=== PATIENT | male | born 1960 | race American Indian/Alaskan Native ===

== ENCOUNTER 2016-12-30 04:40 | Inpatient (IN) | payer OTHER ==
[2016-12-30] MEDS ORDERED: ATIVAN ONE (04:41)
[2016-12-30] MEDS: ATIVAN IV ONE ×2 (04:42→04:44)
[2016-12-30] MEDS ORDERED: KEPPRA 1,000 MG/NS 0.75% 100ML 1,000 MG/100 ML BAG IV ONE ×2 (04:50→05:15)
[2016-12-30] MEDS ORDERED: VALIUM IV ONE ×2 (08:52→14:36)
--- NOTE | 2016-12-30 08:54 | Emergency Department Report ---
ED General Adult HPI - General Chief complaint: Seizure Stated complaint: SEIZURE Time Seen by Provider: 12/30/16 08:44 Source: EMS (ems notes not available at time of chart dictation), RN notes reviewed, old records reviewed Mode of arrival: Stretcher Limitations: Altered Mental Status - History of Present Illness Initial comments: This is a 56-year-old male. He is previously unknown to me. May have a history of seizure disorder. Patient is brought to the hospital by EMS. History is limited as there is no family member present, EMS documentation is not available, and the patient is altered/postictal. As per triage nurse documentation, EMS found patient at a hotel with 3 witnessed seizures by bystanders. Patient arrived at the hospital postictal, and was unresponsive. EMS indicates that patient is not compliant with medications, is uncertain what medications the patient takes. Unable to elucidate exacerbating or relieving factors, qualitative nature secondary to the aforementioned limitations. -: unknown Quality: other (per hpi) Consistency: other (per hpi) Improves with: other (per hpi) Worsens with: other (per hpi) Associated Symptoms: other (per hpi) - Related Data Home Medications Medication Instructions Recorded Confirmed Last Taken Unobtainable 12/30/16 12/30/16 Unknown Allergies Allergy/AdvReac Type Severity Reaction Status Date / Time No Known Allergies Allergy Verified 12/30/16 04:48 ED Review of Systems ROS: Stated complaint: SEIZURE Other details as noted in HPI Comment: Unobtainable due to pts medical conditions ED Past Medical Hx - Past Medical History Previous Medical History?: Yes Hx Seizures: Yes - Surgical History Past Surgical History?: Yes - Social History Smoking Status: Never Smoker - Medications Home Medications: Home Medications Medication Instructions Recorded Confirmed Last Taken Type Unobtainable 12/30/16 12/30/16 Unknown History ED Physical Exam - General Limitations: Altered Mental Status General appearance: in no apparent distress, lethargic - Head Head exam: Present: atraumatic, normocephalic - Eye Eye exam: Present: normal appearance, PERRL - ENT ENT exam: Present: normal exam, mucous membranes moist - Neck Neck exam: Present: normal inspection. Absent: tenderness - Respiratory Respiratory exam: Present: normal lung sounds bilaterally. Absent: respiratory distress, wheezes, rales, rhonchi, stridor, prolonged expiratory - Cardiovascular Cardiovascular Exam: Present: regular rate, normal rhythm, normal heart sounds. Absent: bradycardia, tachycardia, irregular rhythm, systolic murmur, diastolic murmur, rubs, gallop - GI/Abdominal GI/Abdominal exam: Present: soft, normal bowel sounds. Absent: distended, tenderness, guarding, rebound, rigid, pulsatile mass - Rectal Rectal exam: Present: normal inspection, other (escorted by RN Althea Friedman) - exam: Present: normal inspection External exam: Present: normal external exam - Extremities Exam Extremities exam: Present: normal inspection, normal capillary refill. Absent: calf tenderness - Back Exam Back exam: Present: normal inspection. Absent: tenderness, CVA tenderness (R), CVA tenderness (L), muscle spasm, paraspinal tenderness, vertebral tenderness - Neurological Exam Neurological exam: Present: altered, other (patient is altered, curses occasionally, moves 4 extremities occasionally, no midline spinal tenderness.) - Psychiatric Psychiatric exam: Present: flat affect - Skin Skin exam: Present: warm, dry, intact, normal color. Absent: rash ED Course Vital Signs 12/30/16 05:02 Temperature 98.7 F Pulse Rate 105 H Respiratory 18 Rate Blood Pressure 158/95 O2 Sat by Pulse 100 Oximetry - Reevaluation(s) Reevaluation #1: 12/30/16 10:31 Differential diagnosis: Intracranial injury, cervical spine injury, renal insufficiency, toxic encephalopathy, metabolic, postictal state, incidental renal insufficiency. Assessment and plan: 56-year-old male who is probably postictal with altered mental status. He is found to be in renal insufficiency incidentally. History is limited secondary to corroborating family members, corroborating documentation. as of this time, he has received 1 gram keppra He will be given 1 L of IV fluids wide open for his renal insufficiency. A noncontrast CT scan of the brain and cervical spine are pending. X-ray of the chest/urinalysis does not suggest acute infectious etiology. 12/30/16 10:32 Reevaluation #2: 12/30/16 12:12 CT scan of the brain and cervical spine negative. Case is discussed with the Hospital physician, Dr. perez, accepts patient to his service. ED Medical Decision Making - Lab Data Result diagrams: 12/30/16 09:00 12/30/16 09:00 Vital Signs 12/30/16 05:02 Temperature 98.7 F Pulse Rate 105 H Respiratory 18 Rate Blood Pressure 158/95 O2 Sat by Pulse 100 Oximetry Lab Results 12/30/16 12/30/16 12/30/16 Range/Units 05:40 09:00 09:00 WBC 8.5 (4.5-11.0) K/mm3 RBC 3.67 (3.65-5.03) M/mm3 Hgb 11.9 (11.8-15.2) gm/dl Hct 35.7 (35.5-45.6) % MCV 97 H (84-94) fl MCH 33 H (28-32) pg MCHC 34 (32-34) % RDW 14.5 (13.2-15.2) % Plt Count 310 (140-440) K/mm3 Sodium (137-145) mmol/L Potassium (3.6-5.0) mmol/L Chloride (98-107) mmol/L Carbon Dioxide (22-30) mmol/L Anion Gap mmol/L BUN (9-20) mg/dL Creatinine (0.8-1.5) mg/dL Estimated GFR ml/min BUN/Creatinine Ratio % Glucose (75-100) mg/dL Calcium (8.4-10.2) mg/dL Magnesium (1.7-2.3) mg/dL Total Creatine Kinase (55-170) units/L Urine Color Straw (Yellow) Urine Turbidity Clear (Clear) Urine pH 6.0 (5.0-7.0) Ur Specific [place] 1.009 (1.003-1.030) Urine Protein 100 mg/dl (Negative) mg/dL Urine Glucose (UA) 50 (Negative) mg/dL Urine Ketones Neg (Negative) mg/dL Urine Blood Mod (Negative) Urine Nitrite Neg (Negative) Urine Bilirubin Neg (Negative) Urine Urobilinogen < 2.0 (<2.0) mg/dL Ur Leukocyte Esterase Neg (Negative) Urine WBC (Auto) 1.0 (0.0-6.0) /HPF Urine RBC (Auto) 4.0 (0.0-6.0) /HPF Urine Bacteria (Auto) 1+ (Negative) /HPF Phenytoin 1.3 L (10.0-20.0) mg/L 12/30/16 Range/Units 09:00 WBC (4.5-11.0) K/mm3 RBC (3.65-5.03) M/mm3 Hgb (11.8-15.2) gm/dl Hct (35.5-45.6) % MCV (84-94) fl MCH (28-32) pg MCHC (32-34) % RDW (13.2-15.2) % Plt Count (140-440) K/mm3 Sodium 142 (137-145) mmol/L Potassium 3.6 (3.6-5.0) mmol/L Chloride 108.9 H (98-107) mmol/L Carbon Dioxide 24 (22-30) mmol/L Anion Gap 13 mmol/L BUN 34 H (9-20) mg/dL Creatinine 2.6 H (0.8-1.5) mg/dL Estimated GFR 31 ml/min BUN/Creatinine Ratio 13.07 % Glucose 81 (75-100) mg/dL Calcium 8.7 (8.4-10.2) mg/dL Magnesium 2.5 H (1.7-2.3) mg/dL Total Creatine Kinase 369 H (55-170) units/L Urine Color (Yellow) Urine Turbidity (Clear) Urine pH (5.0-7.0) Ur Specific [place] (1.003-1.030) Urine Protein (Negative) mg/dL Urine Glucose (UA) (Negative) mg/dL Urine Ketones (Negative) mg/dL Urine Blood (Negative) Urine Nitrite (Negative) Urine Bilirubin (Negative) Urine Urobilinogen (<2.0) mg/dL Ur Leukocyte Esterase (Negative) Urine WBC (Auto) (0.0-6.0) /HPF Urine RBC (Auto) (0.0-6.0) /HPF Urine Bacteria (Auto) (Negative) /HPF Phenytoin (10.0-20.0) mg/L - EKG Data When compared to previous EKG there are: previous EKG unavailable 12/30/16 10:34 normal sinus, 72 bpm, normal axis, QTC 446 ms, numerous T-wave abnormalities, patient not having chest pain at this time, not consistent with STEMI. EKG morphologically normal. - Radiology Data Radiology results: pending, report reviewed, image reviewed X-ray of the chest demonstrates right lower lobe atelectasis, otherwise no acute disease. Critical care attestation.: If time is entered above; I have spent that time in minutes in the direct care of this critically ill patient, excluding procedure time. ED Disposition Clinical Impression: Renal failure, Altered mental status Disposition: OP ADMITTED IP TO THIS HOSP Is pt being admited?: Yes Condition: Good Referrals: PRIMARY CARE,MD [Primary Care Provider] - 3-5 Days
[2016-12-30 09:15] LABS: Hematocrit 35.7 % (35.5-45.6); Hemoglobin 11.9 gm/dl (11.8-15.2); Mean Corpuscular HGB Conc 34 % (32-34); Mean Corpuscular Hemoglobin 33 pg (28-32); Mean Corpuscular Volume 97 fl (84-94); Platelet Count 310 K/mm3 (140-440); Red Blood Count 3.67 M/mm3 (3.65-5.03); Red Cell Distribution Width 14.5 % (13.2-15.2); White Blood Count 8.5 K/mm3 (4.5-11.0)
--- NOTE | 2016-12-30 09:20 | XRay Report ---
Single view chest: History: AMS, PNA Findings: Cardiomegaly. Trachea is midline. Linear density right lower lobe suggestive of right basilar atelectasis or scarring. Normal CP angles. Impression: Right basilar scarring or discoid atelectasis.
[2016-12-30 09:24] LABS: Urine Drugs of Abuse Note Disclamer
[2016-12-30 09:31] LABS: BUN/Creatinine Ratio 13.07; Calcium 8.7 mg/dL (8.4-10.2); Chloride 108.9 mmol/L (98-107); Magnesium 2.5 mg/dL (1.7-2.3); Potassium 3.6 mmol/L (3.6-5.0)
[2016-12-30 09:42] LABS: Bacteria,Urine 1+ /HPF (Negative); Bilirubin,Urine NEG (Negative); Blood,Urine MOD (Negative); Ketones,Urine NEG (Negative); Leukocyte Esterase,Urine NEG (Negative); Nitrite,Urine NEG (Negative); Urobilinogen,Urine < 2.0 mg/dL (<2.0)
[2016-12-30] MEDS ORDERED: NACL 0.9% 1000 ML 1,000 ML IV ONE (10:28)
--- NOTE | 2016-12-30 10:53 | Admit Criteria Form ---
Admission Criteria Documentation: MENTAL STATUS CHANGE Clinical Indications for Inpatient Care (Place 'X' for any and all applicable criteria): Ongoing inpatient care may be needed for ANY ONE of the following(1)(2)(3)(5)(6) : [X]I. Suspected serious etiology (eg, medical disorder, COMPUTER ENGINEERING TECHNOLOGIST event) of mental status change [ ]II. Danger to self or others not manageable at lower level of care [ ]III. Grave disability (eg, inability to perform self care necessary at lower level of care) [ ]IV. Agitation or inappropriate behavior interfering with care for primary condition (eg, attempting to discontinue lines or drains prematurely, unable to cooperate with respiratory care) [ ]V. Delirium [A] [D][E] as described by ANY ONE of the following(26): [ ]a) Delirium due to alcohol or sedative [F] withdrawal [ ]b) Delirium of uncertain etiology that has not responded to appropriate empiric treatment [ ]c) Delirium that prevents performance of a life-sustaining function (eg, feeding or hydrating oneself) [ ]. General contraindications and/or Inappropriate clinical situations for Observational Care in patients with Mental Status Change, when ANY ONE of the following is required: [ ]a) Prediction of prolongation of LOS based on ANY ONE of the following may be considered as a contraindication for observational care 2, 3, 4, 5, 6, 7, 8, 9, 10, 11 [ ]i) Age > 65 yrs. [ ]ii) Patient arriving by ambulance [ ]iii) Patient with high acuity [ ]iv) Patient requiring vital sign monitoring [ ]v) Patient on IV medication [ ]b) Systolic blood pressures 180mmHg 3,12 [ ]c) Patient with altered mental status including delirium and other alteration of consciousness, (3) [ ]d) Patient whose discharge disposition will be to a long term home or rehabilitation home should not be managed in Emergency Department Observation Unit. CMS rule requires 3 days hospital stay before such placement.3,13 [ ]e) Patient with failure to thrive due to broad array of etiologies 3,16,17 [ ]f) Inability to ambulate 3,14 Extended stay beyond goal length of stay for the primary condition may be needed until ALL of the following are present(3)(5): [ ]a) Underlying medical etiology of mental status change is absent, or has been established and adequately treated [ ]b) Danger to self or others is absent or manageable at lower level of care. [ ]c) Behavior crisis management, including physical or chemical restraints, is not required or available at lower level of car [ ]d) Substance or alcohol withdrawal is absent or manageable at lower level of care. [ ]e) Behavioral symptoms (eg, agitation, somnolence, inappropriate behavior) are absent, or are manageable at lower level of care. The original [facility] content created by [employer] [employer] [facility] [employer] has been revised. The portions of the content which have been revised are identified through the use of italic text or in bold, and [facility] has neither reviewed nor approved the modified material. All other unmodified content is copyright [facility]. Please see references footnoted in the original [facility] edition 2016 Admission Criteria Met: Yes
--- NOTE | 2016-12-30 11:15 | Cat Scan Report ---
CT scan of head without contrast: History: AMS. Findings: Ventricles are normal in size and midline in location. Focal area of low attenuation in the left posterior parietal and frontal region. Periventricular area of low attenuation. No evidence of hemorrhage. No extra-axial fluid collection. Normal brainstem and cerebellum. Normal sinuses and mastoid air cells. Impression: Ill-defined areas of low attenuation left posterior frontal and left posterior parietal region probably represents chronic ischemia. No previous studies available for comparison.
--- NOTE | 2016-12-30 11:17 | Cat Scan Report ---
CT scan of cervical spine: History: AMS. Findings: The odontoid process and lateral mass appears normal. The anterior and posterior arch of atlas and the occipital condyles appears unremarkable. Normal height of vertebral bodies. Decrease in height of C5-C6, C6-C7. Sclerotic articular surfaces and peripheral osteophyte suggestive of severe cervical spondylosis. No fracture. Normal prevertebral soft tissue. Impression Severe spondylosis lower cervical spine.
[2016-12-30] MEDS ORDERED: BABY ASPIRIN ONE (15:55)
[2016-12-30] MEDS ORDERED: APRESOLINE IV ONE (15:56)
[2016-12-30] MEDS: BABY ASPIRIN PO SCH (16:04)
--- NOTE | 2016-12-30 21:53 | Event Note ---
Date: 12/30/16 See H/p in reports AMS Encephalopathy Seizure Disorder HTN CKD
[2016-12-30] MEDS ORDERED: COZAAR PO SCH (22:00)
[2016-12-30] MEDS ORDERED: NACL 0.9% 1000 ML 1,000 ML IV SCH (23:00)
[2016-12-30] MEDS ORDERED: KEPPRA 750 MG in D5W 100 ML IV SCH (23:00)
--- NOTE | 2016-12-30 23:34 | History and Physical Report ---
CHIEF COMPLAINT: 1. Seizures. 2. Postictal state. HISTORY OF PRESENT ILLNESS: A 56-year-old -[place] male with history of hypertension, seizure disorder, chronic kidney disease, noncompliant with medication, brought in for seizures. The patient was at a hotel with 3 witnessed seizures by bystanders. EMS was called and the patient did not have any seizures in the EMS. In the hospital, the patient was postictal and was totally unresponsive. The patient apparently is noncompliant with medications. No fever, no chills. CURRENT MEDICATIONS: None. PAST MEDICAL HISTORY: Significant for hypertension, seizure disorder, chronic kidney disease. SOCIAL HISTORY: Does not smoke. PAST SURGICAL HISTORY: Unknown. FAMILY HISTORY: Unknown. CURRENT MEDICATIONS: Unobtainable. REVIEW OF SYSTEMS: The patient is postictal. Could not be done. Attempted to do the 14-point review of systems done. No fever, no chills. PHYSICAL EXAMINATION: GENERAL: Middle-aged male, altered sensorium, lethargic, lying in bed. Well-developed, well-nourished. VITAL SIGNS: Temperature 98.7, pulse is 105, respirations are 18, blood pressure 158/95, sats are 100%. HEENT: Unremarkable. Pupils are equal and reactive. NECK: Supple, no lymphadenopathy, no thyromegaly, no carotid artery bruit. LUNGS: Clear to auscultation and percussion. Good air entry. CARDIOVASCULAR: S1, S2 heard. No gallop, no murmur, no rub. Apical impulse in the left fifth intercostal space and midclavicular line. ABDOMEN: Soft and benign. No hepatosplenomegaly. No guarding, no rigidity. Hernial orifices are normal. EXTREMITIES: Good pedal pulses. No pedal edema. CENTRAL NERVOUS SYSTEM: The patient is lethargic. Decreased responsiveness. Responds to painful stimuli. NEUROLOGIC: Moves all 4 extremities. SKIN: Normal. LABORATORY DATA: Electrolytes are normal. BUN and creatinine is 34 and 2.6, hemoglobin is 11.9, hematocrit 35.7. CBC is 8.5, platelet count is 310,000. Urine is negative. Phenytoin level is 1.3. CT of the head shows no acute changes. EKG shows no STEMI, nonspecific ST-T wave changes. ASSESSMENT AND PLAN: 1. Altered mental status secondary to seizure disorder. The patient is postictal. The patient is started on IV Keppra 750 q. 12. The patient to be switched to p.o. Keppra. 2. Encephalopathy secondary to seizure disorder and postictal state. IV fluids for the time being. 3. Seizure disorder, IV Keppra 750 q. 12. to be bridged over to p.o. Keppra and to be counseled about being compliant. 4. Hypertension, uncontrolled. The patient is started on losartan 100 mg daily and Coreg 12.5 q. 12 hours. I do not know at this point when the patient can afford losartan, but I would prefer losartan over lisinopril because of the frequent angioedema and mervin inhibitors reaction. 5. Chronic kidney disease, now stable. 6. Acute on chronic renal failure. We will attempt IV fluids and see whether there will be improvement in the BUN and creatinine. Nephrology consulted. Proof Load Mechanic electronic communications technician consulted. 7. Deep venous thrombosis prophylaxis. Lovenox 40 mg subcutaneous daily. JOB# [id number] SHIRA/PADDY
[2016-12-30] MEDS: COREG PO SCH (23:42)
[2016-12-30] MEDS: KEPPRA PO SCH (23:42)
--- NOTE | 2016-12-31 09:53 | Consultation ---
History of Present Illness - Reason for Consult Consult date: 12/31/16 acute renal failure - History of Present Illness patient is a poor historian, does not why and how he came to the hospital, per ED note it appears he has a seizure episode, no family at bedside, patient when seen in AM denies any pain or discomfort, denies h/o CKD. renal consult requested for renal failure management. Past History Past Medical History: hypertension Medications and Allergies Allergies Allergy/AdvReac Type Severity Reaction Status Date / Time No Known Allergies Allergy Verified 12/30/16 04:48 Home Medications Medication Instructions Recorded Confirmed Last Taken Type Unobtainable 12/30/16 12/30/16 Unknown History Active Meds: Active Medications Amlodipine Besylate (Norvasc) 10 mg PO QDAY [facility] Aspirin (Baby Aspirin) 81 mg PO QDAY [facility] Last Admin: 12/30/16 16:04 Dose: 81 mg Carvedilol (Coreg) 12.5 mg PO BID [facility] Last Admin: 12/30/16 23:42 Dose: 12.5 mg Carvedilol (Coreg) 25 mg PO BID [facility] Sodium Chloride (Nacl 0.9% 1000 Ml) 1,000 mls @ 100 mls/hr IV DIRECT WILL Levetiracetam (Keppra) 750 mg PO BID [facility] Last Admin: 12/30/16 23:42 Dose: 750 mg Review of Systems All systems: negative (weakness, confusion) Exam - Vital Signs Vital signs: Vital Signs Temp Pulse Resp BP Pulse Ox 98.7 F 105 H 18 158/95 100 12/30/16 05:02 12/30/16 05:02 12/30/16 05:02 12/30/16 05:02 12/30/16 05:02 - General Appearance General appearance: well-developed, well-nourished EENT: ATNC, PERRL, mucous membranes moist Neck: Present: neck supple Respiratory: Clear to Ascultation Heart: regular, S1S2 Gastrointestinal: Present: normoactive bowel sounds. Absent: tenderness, distended, masses Integumentary: no rash, warm and dry Neurologic: no focal deficit, no asterixis Musculoskeletal: Present: other (no edema in BLE) Psychiatric: mood/affect appropriate, cooperative Results - Lab Results 12/30/16 09:00 12/30/16 09:00 Most recent lab results Calcium 8.7 mg/dL (8.4-10.2) 12/30/16 09:00 Magnesium 2.5 mg/dL (1.7-2.3) H 12/30/16 09:00 Assessment and Plan - Patient Problems (1) Renal failure Current Visit: Yes Status: Acute Plan to address problem: no baseline Cr available, possible CKD due to poor BP control will hold losartan for now will check renal US will check UA with urine lytes and protein no indication for QUALITY CONTROL EXPERT renally dose meds strict I&O renal diet daily weight (2) Hypertension associated with stage 3 chronic kidney disease due to type 2 diabetes mellitus Current Visit: Yes Status: Acute Plan to address problem: will hold losartan for now will increase coreg to 25 mg BID and start Amlodipine 10 mg qday (3) Altered mental status Current Visit: Yes Status: Acute Qualifiers: Altered mental status type: disorientation Coma depth: C Coma timing: C Qualified Code(s): R41.0 - Disorientation, unspecified Plan to address problem: CT head negative for acute process but possible showing chronic ischemic changes unlikely due to uremia
[2016-12-31] MEDS: KEPPRA PO SCH ×2 (09:58→22:03)
[2016-12-31] MEDS: BABY ASPIRIN PO SCH (09:58)
[2016-12-31] MEDS: COREG PO SCH ×3 (09:58→22:03)
[2016-12-31 10:48] LABS: BUN/Creatinine Ratio 11.3; Calcium 8.5 mg/dL (8.4-10.2); Chloride 113.6 mmol/L (98-107); Potassium 4.1 mmol/L (3.6-5.0)
--- NOTE | 2016-12-31 10:58 | Consultation ---
History of Present Illness Consult date: 12/31/16 Requesting physician: TIMOTHY MCCARTNEY Reason for Consult: seizure Chief complaint: sleepy History of present illness: 56 YO M Hx documented Sz disorder on ? AED but pt denies Sz Hx who reportedly witnessed to have 3 seizures in hotel surrounded by bystandards on 12/30. He arrived to ED stuporous but MS has gradually improved. Duration of Sz is unclear. AMS is constant but has improved. There were no clear aggravating, relieving or temporal factors. Severity such to cause LOC. Past History Past Medical History: hypertension, seizures (Hx per documents but pt denies) Social history: single, Lives alone. denies: alcohol abuse, prescription drug abuse Family history: no significant family history Medications and Allergies Allergies Allergy/AdvReac Type Severity Reaction Status Date / Time No Known Allergies Allergy Verified 12/30/16 04:48 Home Medications Medication Instructions Recorded Confirmed Last Taken Type Unobtainable 12/30/16 12/30/16 Unknown History Active Meds: Active Medications Amlodipine Besylate (Norvasc) 10 mg PO QDAY [facility] Aspirin (Baby Aspirin) 81 mg PO QDAY [facility] Last Admin: 12/31/16 09:58 Dose: 81 mg Carvedilol (Coreg) 12.5 mg PO BID [facility] Last Admin: 12/31/16 09:58 Dose: 12.5 mg Carvedilol (Coreg) 25 mg PO BID [facility] Sodium Chloride (Nacl 0.9% 1000 Ml) 1,000 mls @ 100 mls/hr IV DIRECT [facility] Levetiracetam (Keppra) 750 mg PO BID [facility] Last Admin: 12/31/16 09:58 Dose: 750 mg Review of Systems ROS unobtainable: due to mental status Constitutional: fatigue Neurological: confusion, no head injury, no paralysis, no weakness, no parathesias, no numbness, no seizures, no syncope, no convulsions, no change in speech, no gait dysfunction, no motor disturbance, no sensory deficit, no double vision, no loss of vision, no paralysis Physical Examination - Vital Signs Vital Signs: Vital Signs Temp Pulse Resp BP Pulse Ox 98.7 F 105 H 18 158/95 100 12/30/16 05:02 12/30/16 05:02 12/30/16 05:02 12/30/16 05:02 12/30/16 05:02 - Constitutional General appearance: comfortable, acutely ill, chronically ill, older than stated age - EENT EENT: Present: ATNC, PERRL, mucous membranes dry, hearing intact, vision intact - Respiratory Respiratory: Present: chest non-tender, normal breath sounds, no respiratory distress - Cardiovascular Cardiovascular: Present: regular rate Extremities: Present: no peripheral edema bilatateraly, no clubbing, cyanosis, no inflammation, no ischemia or petechiae - Gastrointestinal Gastrointestinal: Present: normoactive bowel sounds, non-distended - Integumentary Integumentary: Present: normal - Neurologic Cranial nerve examination: PERRL, EOMI, VFF, face symmetric, tongue midline, intact, intact shoulder shrug, intact cough reflex, Intact Vestibulo-ocular r, intact corneal reflex, normal palatal elevation Speech examination: motor aphasia, other (confusion, disorientation, slowed speech) Sensorimotor examination: intact, pronator drift (on R), hemiparesis (faint on R ) Motor examination - right side: 5/5: biceps (5-/5 slightly slower on R), triceps , wrist flexion, wrist extension, ob tech, hip flexors, knee extensors, dorsiflexion, toe extension (EHL), plantarflexion Motor examination - left side: 5/5: biceps, triceps, wrist flexion, wrist extension, ob tech, hip flexors, knee extensors, dorsiflexion, toe extension (EHL) , plantarflexion Detailed sensory examination: intact, light touch, temperature Reflex and gait examination: intact Reflexes: 2+: ankle, bicep, knee, tricep - Musculoskeletal Musculoskeletal: Present: no fluid collection, no pain, normal range of motion - Psychiatric Psychiatric: Present: mood/affect appropriate, cooperative Results - Laboratory Findings CBC and BMP: 12/30/16 09:00 12/31/16 09:58 Abnormal Lab Findings: Abnormal Labs 12/30/16 12/31/16 17:03 09:58 Sodium 146 H Chloride 113.6 H BUN 26 H Creatinine 2.3 H Troponin T 0.127 H* HDL Cholesterol 71 H Assessment and Plan 56 YO M Hx documented Sz disorder on ? AED but pt denies Sz Hx or Hx abnormal CTH who reportedly witnessed to have 3 ? GTCs on 12/30 and is gradually returning to baseline. Clinical exam drowsy disorientated but following commands w/ subtle R hemiparesis that pt states is baseline through he denies head injury/ stroke. CTH chronic L posterior frontal/parietal encephalomalacia. We will need further work up as pt's Hx and documentation are discrepant. Plan and Recommendation: 1. Telemetry bed w/ Q4 hour neuro checks & Sz precautions 2. MRI Brain +/- [facility] 3. Labs: Serum/Urine Tox, UA/UCx, Electrolytes especially Na, Ca, Mg, and Glucose, TSH, 4. AED therapy: Cont LEV 750mg BID for now while home meds reconciled. 5. Avoid meds that can lower sz threshold e.g. Tramadol, fluroquinolones, carbapenems 6. Pt advised of [place] driving regulations: report date of presumed Seizure/ unexplained loss of consciousness/awareness spell to DMV, refrain from operating a motor vehicle for 6 months after this date, and avoid unsupervised activity particularly around water or heights
--- NOTE | 2016-12-31 12:27 | Consultation ---
History of Present Illness Consult date: 12/31/16 Requesting physician: ROSETTE RUBIO Consult reason: elevated troponin, other (post seizure) History of present illness: Pt is a 56YO male with a past medical history significant for tobacco use (1PPD x 20 years). He is previously unknown to our practice. He reports that he is unsure why he is hospitalized. He does not have any recollection of the day of hospitalization and states that he is currently in his normal state of health. Per the records, he has questionable h/o seizure disorder and was reportedly witnessed to have 3 seizures in hotel surrounded by bystandards on 12/30. He arrived to ED with AMS, which has now resolved. Pt denies any chest pain, palpitations, SOB, n/v, diaphoresis, dizziness, or syncope. Past History Past Medical History: seizures (Hx per documents but pt denies) Past Surgical History: No surgical history Social history: single, Lives alone, smoking (tobacco use). denies: alcohol abuse, prescription drug abuse Family history: no significant family history Medications and Allergies Allergies Allergy/AdvReac Type Severity Reaction Status Date / Time No Known Allergies Allergy Verified 12/30/16 04:48 Home Medications Medication Instructions Recorded Confirmed Last Taken Type Unobtainable 12/30/16 12/30/16 Unknown History Active Meds: Active Medications Amlodipine Besylate (Norvasc) 10 mg PO QDAY [facility] Aspirin (Baby Aspirin) 81 mg PO QDAY [facility] Last Admin: 12/31/16 09:58 Dose: 81 mg Carvedilol (Coreg) 25 mg PO BID [facility] Sodium Chloride (Nacl 0.9% 1000 Ml) 1,000 mls @ 100 mls/hr IV DIRECT [facility] Levetiracetam (Keppra) 750 mg PO BID [facility] Last Admin: 12/31/16 09:58 Dose: 750 mg Review of Systems Constitutional: no weight loss, no weight gain, no fever, no chills, no sweats Ears, nose, mouth and throat: no ear pain, no ear discharge, no decreased hearing, no nose pain, no nasal congestion, no nasal discharge, no sinus pressure, no sinus pain, no epistaxis, no bleeding gums, no dental pain, no mouth pain, no dysphagia, no hoarseness, no sore throat Cardiovascular: no chest pain, no orthopnea, no palpitations, no rapid/ irregular heart beat, no edema, no syncope, no lightheadedness, no shortness of breath, no dyspnea on exertion, no high blood pressure Respiratory: no cough, no shortness of breath, no dyspnea on exertion, no congestion, no wheezing, no pain, no sleep apnea Gastrointestinal: no abdominal pain, no nausea, no vomiting, no diarrhea, no constipation, no change in bowel habits Genitourinary Male: no dysuria, no hematuria, no flank pain, no discharge, no urinary frequency, no urinary hesitancy Musculoskeletal: no neck stiffness, no neck pain, no shooting arm pain, no arm numbness/tingling, no low back pain, no shooting leg pain, no leg numbness/ tingling, no redness of joints, no limitation of motion, no gait dysfunction Integumentary: no rash, no pruritis, no redness, no sores, no wounds Neurological: no head injury, no transient paralysis, no paralysis, no weakness , no parathesias, no numbness, no tingling, no seizures, no syncope, no tremors , no ataxia, no lack of coordination Endocrine: no cold intolerance, no heat intolerance, no polyphagia, no excessive thirst, no polydipsia, no polyuria, no nocturia Hematologic/Lymphatic: no easy bruising, no easy bleeding, no lymphadenopathy Allergic/Immunologic: no urticaria, no wheezing, no persistent infections Physical Examination Last Vital Signs Temp 98.2 F 12/31/16 08:00 Pulse 68 12/31/16 09:00 Resp 20 12/31/16 08:00 BP 179/109 12/31/16 08:00 Pulse Ox 98 12/31/16 08:00 General appearance: no acute distress HEENT: Positive: PERRL, Normocephaly, Mucus Membranes Moist Neck: Positive: neck supple, trachea midline Cardiac: Positive: Reg Rate and Rhythm, irregularly irregular Lungs: Positive: Normal Exam, clear to auscultation, Normal Breath Sounds, No Wheeze, Rales, Rhonchi Neuro: Positive: Grossly Intact, Cranial Nerve 2-12 Intact, Motor Function Intact Abdomen: Positive: Unremarkable, Soft, Active Bowel Sounds. Negative: Tender Skin: Positive: Clear. Negative: Rash, Wound Musculoskeletal: No Fluid Collection, No Pain, Normal Range of Motion Extremities: Present: normal, upper extr. pulses, lower extr. pulses. Absent: edema Results 12/30/16 09:00 12/31/16 09:58 Lipids 12/30/16 Range/Units 17:03 Triglycerides 47 (2-149) mg/dL Cholesterol 172 (50-199) mg/dL HDL Cholesterol 71 H (40-59) mg/dL Cholesterol/HDL Ratio 2.42 % Comprehensive Metabolic Panel 12/31/16 Range/Units 09:58 Sodium 146 H (137-145) mmol/L Potassium 4.1 (3.6-5.0) mmol/L Chloride 113.6 H (98-107) mmol/L Carbon Dioxide 24 (22-30) mmol/L BUN 26 H (9-20) mg/dL Creatinine 2.3 H (0.8-1.5) mg/dL Glucose 86 (75-100) mg/dL Calcium 8.5 (8.4-10.2) mg/dL - Imaging and Cardiology Echo: pending EKG: report reviewed, image reviewed EKG interpretations - Telemetry EKG Rhythm: Sinus Rhythm - EKG Sinus rhythms and dysrhythmias: sinus bradycardia Repolarization changes or abnormalities: ST or T wave suggestive of ischemia (t- wave inversions in lateral leads) Myocardial infarction: septal DC (old age or ind Assessment and Plan Assessment: ? Seizure / AMS - head CT with NAF. Elevated troponin x1 - pt denies chest pain. HTN ARF v. CKD Tobacco use / cocaine use - denies illicit drug use, toxicology positive for cocaine. Plan: Cont to trend troponins. Obtain echo. Cont tele. Optimize anti-hypertensive regimen - Coreg increased and amlodipine initiated this AM per nephrology; no ACEI/ARB at this time in setting of diminished renal function; consider addition of hydralazine if necessary. Assessment and plan reviewed with pt at bedside. The patient has been seen in conjunction with Dr. Almonte who agrees with the assessment and plan of care.
[2016-12-31] MEDS: NORVASC PO SCH (12:30)
--- NOTE | 2016-12-31 13:39 | Ultrasound Report ---
ULTRASOUND RENAL INDICATION: Renal failure. COMPARISON: None similar. FINDINGS: Renal sonography suggests mild increased renal cortical echogenicity. Grossly preserved contours. No hydronephrosis. RIGHT KIDNEY measures 11.2 x 4.9 x 5.5 cm with cortical thickness of 1.6 cm. LEFT KIDNEY estimated at 10.8 x 4.7 x 5.6 cm with cortical thickness of 1.6 cm. A 1.5 x 0.8 cm cortical cyst noted superiorly while another approximately 0.9 cm inferiorly. Approximately 1 x 0.4 cm interpolar non-shadowing echogenicity about the corticomedullary junction also seen as on image 17, amongst others. URINARY BLADDER suboptimally distended and assessed. CONCLUSION: Small left renal cysts and a nonspecific echogenicity noted in this patient with underlying medical renal disease, as described. Please correlate. Thank you for the opportunity to participate in this patient's care.
[2016-12-31 14:19] LABS: Creatine Kinase MB 3.7 ng/mL (0.0-4.0)
--- NOTE | 2016-12-31 15:06 | Magnetic Resonance Report ---
MRI BRAIN WITHOUT AND WITH CONTRAST: 12/31/16 10:51:00 CLINICAL: Altered mental status. COMPARISON: CT head 12/30/16 TECHNIQUE: Axial diffusion, T1, FLAIR, gradient echo T2*, and coronal and axial T2 and sagittal T1 plus coronal and axial postcontrast T1 sequences on a 1.5 Parul magnet. 12.0 cc of Multihance was injected intravenously for the contrast portion of the exam. Consent was obtained prior to the administration of contrast. FINDINGS: The ventricles are normal size but there is generalized enlargement of sulci for age. No restricted diffusion. Extensive bilateral periventricular deep white matter hyperintensities on FLAIR and T2. Left posterior parietal and occipital lobe encephalomalacia. No mass or enhancing lesion. No hemorrhage, edema or extra-axial collection. Normal pituitary and optic chiasm. The brainstem and cerebellum are normal. Intact vascular flow voids. The orbits and soft tissues are normal. Bilateral maxillary sinusitis with mucoperiosteal thickening. No air-fluid levels in the sinuses. Normal calvarium and skull base. IMPRESSION: 1. No acute or subacute infarct. 2. No hemorrhage. 3. 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 4. Global cortical atrophy and extensive bilateral chronic white matter microangiopathy.
--- NOTE | 2016-12-31 17:57 | Progress Note ---
Assessment and Plan Assessment and plan: Patient is a a pleasant 56 year old male with hx of HTN, Seizure, CKD, admitted with seizures. * Seizure * Acute kidney injury on chronic kidney disease likely secondary to HTN * Acute metabolic encephalopathy * HTN * NSTEMI type 2 Plan: * Supportive care, q4 hr neuro checks * Continue LEV 750mg bid * Continue fluids, Urinalysis * Echocardiogram to rule out cardiomyopathy * Coreg increased Coreg 25mg BID, Amlopidine 10mg daily * Mental status improved * If continued History Interval history: Patient seen and examined, in no acute distress. Denies any chest pain, nausea vomiting diarrhea reports that he does not know why he is in the hospital. I' ll recall events that happened yesterday. Hospitalist Physical - Physical exam Narrative exam: VITAL SIGNS: Reviewed. GENERAL: The patient appeared well nourished and normally developed. Vital signs as documented. HEAD: No signs of head trauma. EYES: Pupils are equal. Extraocular motions intact. EARS: Hearing grossly intact. MOUTH: Oropharynx is normal. NECK: No adenopathy, no JVD. CHEST: Chest with clear breath sounds bilaterally. No wheezes, rales, or rhonchi. CARDIAC: Regular rate and rhythm. S1 and S2, without murmurs, gallops, or rubs. VASCULAR: No Edema. Peripheral pulses normal and equal in all extremities. ABDOMEN: Soft, without detectable tenderness. No sign of distention. No rebound or guarding, and no masses palpated. Bowel Sounds normal. MUSCULOSKELETAL: Good range of motion of all major joints. Extremities without clubbing, cyanosis or edema. NEUROLOGIC EXAM: Alert and oriented x 3 no focal neurological deficit Speech normal. Follows commands. PSYCHIATRIC: Mood normal. SKIN: No rash or lesions. - Constitutional Vitals: Temp Pulse Resp BP Pulse Ox 98.0 F 72 20 168/99 97 12/31/16 16:00 12/31/16 17:00 12/31/16 16:00 12/31/16 16:00 12/31/16 16:00 General appearance: Present: no acute distress Results - Labs CBC & Chem 7: 12/30/16 09:00 12/31/16 09:58 Labs: Laboratory Last Values WBC 8.5 K/mm3 (4.5-11.0) 12/30/16 09:00 RBC 3.67 M/mm3 (3.65-5.03) 12/30/16 09:00 Hgb 11.9 gm/dl (11.8-15.2) 12/30/16 09:00 Hct 35.7 % (35.5-45.6) 12/30/16 09:00 MCV 97 fl (84-94) H 12/30/16 09:00 MCH 33 pg (28-32) H 12/30/16 09:00 MCHC 34 % (32-34) 12/30/16 09:00 RDW 14.5 % (13.2-15.2) 12/30/16 09:00 Plt Count 310 K/mm3 (140-440) 12/30/16 09:00 Sodium 146 mmol/L (137-145) H 12/31/16 09:58 Potassium 4.1 mmol/L (3.6-5.0) 12/31/16 09:58 Chloride 113.6 mmol/L (98-107) H 12/31/16 09:58 Carbon Dioxide 24 mmol/L (22-30) 12/31/16 09:58 Anion Gap 13 mmol/L 12/31/16 09:58 BUN 26 mg/dL (9-20) H 12/31/16 09:58 Creatinine 2.3 mg/dL (0.8-1.5) H 12/31/16 09:58 Estimated GFR 36 ml/min 12/31/16 09:58 BUN/Creatinine Ratio 11.30 % 12/31/16 09:58 Glucose 86 mg/dL (75-100) 12/31/16 09:58 Calcium 8.5 mg/dL (8.4-10.2) 12/31/16 09:58 Magnesium 2.5 mg/dL (1.7-2.3) H 12/30/16 09:00 Total Creatine Kinase 209 units/L (55-170) H 12/31/16 13:40 CK-MB (CK-2) 3.7 ng/mL (0.0-4.0) 12/31/16 13:40 CK-MB (CK-2) Rel Index 1.7 (0-4) 12/31/16 13:40 Troponin T 0.076 ng/mL (0.00-0.029) H D 12/31/16 13:40 Triglycerides 47 mg/dL (2-149) 12/30/16 17:03 Cholesterol 172 mg/dL (50-199) 12/30/16 17:03 LDL Cholesterol Direct 92 mg/dL (50-130) 12/30/16 17:03 HDL Cholesterol 71 mg/dL (40-59) H 12/30/16 17:03 Cholesterol/HDL Ratio 2.42 % 12/30/16 17:03 Urine Color Straw (Yellow) 12/30/16 09:00 Urine Turbidity Clear (Clear) 12/30/16 09:00 Urine pH 6.0 (5.0-7.0) 12/30/16 09:00 Ur Specific [place] 1.009 (1.003-1.030) 12/30/16 09:00 Urine Protein 100 mg/dl mg/dL (Negative) 12/30/16 09:00 Urine Glucose (UA) 50 mg/dL (Negative) 12/30/16 09:00 Urine Ketones Neg mg/dL (Negative) 12/30/16 09:00 Urine Blood Mod (Negative) 12/30/16 09:00 Urine Nitrite Neg (Negative) 12/30/16 09:00 Urine Bilirubin Neg (Negative) 12/30/16 09:00 Urine Urobilinogen < 2.0 mg/dL (<2.0) 12/30/16 09:00 Ur Leukocyte Esterase Neg (Negative) 12/30/16 09:00 Urine WBC (Auto) 1.0 /HPF (0.0-6.0) 12/30/16 09:00 Urine RBC (Auto) 4.0 /HPF (0.0-6.0) 12/30/16 09:00 Urine Bacteria (Auto) 1+ /HPF (Negative) 12/30/16 09:00 Salicylates < 0.3 mg/dL (2.8-20.0) L 12/30/16 09:05 Urine Opiates Screen Presumptive negative 12/30/16 09:00 Urine Methadone Screen Presumptive negative 12/30/16 09:00 Acetaminophen < 15.0 ug/mL (10.0-30.0) 12/30/16 09:05 Ur Barbiturates Screen Presumptive negative 12/30/16 09:00 Phenytoin 1.3 mg/L (10.0-20.0) L 12/30/16 05:40 Ur Phencyclidine Scrn Presumptive negative 12/30/16 09:00 Ur Amphetamines Screen Presumptive negative 12/30/16 09:00 U Benzodiazepines Scrn Presumptive negative 12/30/16 09:00 Urine Cocaine Screen Presumptive positive 12/30/16 09:00 U Marijuana (THC) Screen Presumptive negative 12/30/16 09:00 Drugs of Abuse Note Disclamer 12/30/16 09:00 Plasma/Serum Alcohol < 0.01 gm% (0-0.07) 12/30/16 09:05 - Imaging and Cardiology MRI - abdomen: image reviewed
[2017-01-01 07:34] LABS: Basophils % (Auto) 2.7 % (0.0-1.8); Eosinophils % (Auto) 4.7 % (0.0-4.3); Hemoglobin 11.4 gm/dl (11.8-15.2); Mean Corpuscular HGB Conc 34 % (32-34); Mean Corpuscular Hemoglobin 33 pg (28-32); Mean Corpuscular Volume 97 fl (84-94); Platelet Count 295 K/mm3 (140-440); Red Cell Distribution Width 14.6 % (13.2-15.2); White Blood Count 5.5 K/mm3 (4.5-11.0)
[2017-01-01 07:46] LABS: BUN/Creatinine Ratio 13.5; Calcium 8.4 mg/dL (8.4-10.2); Phosphorous 2.9 mg/dL (2.5-4.5)
--- NOTE | 2017-01-01 09:00 | Discharge Summary ---
Providers - Providers Date of Admission: 12/30/16 12:12 Date of discharge: 01/02/17 Attending physician: ROSETTE RUBIO MD 12/30/16 21:56 Consult to Physician [CONS] Routine Consulting Provider: RAUL RONDON Reason For Exam: seizure disorder Place consult to:: Dr. Rondon Notified:: Dalia LUGO Phone number called:: Ext [phone] Was contact made?: Yes If yes, spoke with:: Voicemail with consult info left for Melodie Reyes Time called:: 08:13 12/30/16 22:11 Consult to Physician [CONS] Routine Consulting Provider: ROBERTO ANAYA Reason For Exam: CKD Place consult to:: Dr. Marroquin Notified:: Dalia LUGO Was contact made?: Yes If yes, spoke with:: Dr. Marroquin Time called:: 09:30 12/31/16 09:01 Consult to Physician [CONS] Routine Consulting Provider: ROBERT BOSCH Reason For Exam: positive troponin post seizure Place consult to:: Dr. Bosch Notified:: Dalia LUGO Was contact made?: Yes If yes, spoke with:: Yuki Time called:: 11:02 Primary care physician: PROGRAM ADVISOR Hospitalization Reason for admission: seizure Condition: Stable Hospital course: Patient is a a pleasant 56 year old male with hx of HTN, Seizure, CKD, admitted with seizures.,. Patient has a history of seizures and chronic kidney disease are hypertension and has been noncompliant with medication. He was noticed to have seizures by bystander to EMS was called and she was provided to the hospital. He was noted to also have elevated troponin and cardiology did evaluate and follow with them in 2 weeks. We also advised him off [place] rules he is not to drive for at least 6 months and he is to see neurology. We did renew his medications for him and advised him to be compliant the patient verbalized understanding. We also discussed his cocaine history and patient verbalized understanding the resources were provided to the patient. Discharge Diagnosis * Seizure * Acute kidney injury on chronic kidney disease likely secondary to HTN * Acute metabolic encephalopathy * HTN * NSTEMI type 2 * Cocain abuse * cardiomyopathy * Disposition: DISCHARGED TO HOME OR SELFCARE Time spent for discharge: 35 mins Core Measure Documentation - Palliative Care Palliative Care/ Comfort Measures: Not Applicable - Core Measures Any of the following diagnoses?: none - VTE Discharge Requirements Deep Vein Thrombosis/Pulmonary Embolism Present on Admission: No - Heart Failure Discharge Requirements IRMA/ARB for LVSD if EF <40%: No Reason for no IRMA/ARB: Renal impairment Beta vish at discharge: Yes Exam - Physical Exam Narrative exam: VITAL SIGNS: Reviewed. GENERAL: The patient appeared well nourished and normally developed. Vital signs as documented. HEAD: No signs of head trauma. EYES: Pupils are equal. Extraocular motions intact. EARS: Hearing grossly intact. MOUTH: Oropharynx is normal. NECK: No adenopathy, no JVD. CHEST: Chest with clear breath sounds bilaterally. No wheezes, rales, or rhonchi. CARDIAC: Regular rate and rhythm. S1 and S2, without murmurs, gallops, or rubs. VASCULAR: No Edema. Peripheral pulses normal and equal in all extremities. ABDOMEN: Soft, without detectable tenderness. No sign of distention. No rebound or guarding, and no masses palpated. Bowel Sounds normal. MUSCULOSKELETAL: Good range of motion of all major joints. Extremities without clubbing, cyanosis or edema. NEUROLOGIC EXAM: Alert and oriented x 3 no focal neurological deficit Speech normal. Follows commands. PSYCHIATRIC: Mood normal. SKIN: No rash or lesions. - Constitutional Vitals: Temp Pulse Resp BP Pulse Ox 98.7 F 77 20 187/109 99 01/01/17 08:35 01/01/17 08:35 01/01/17 08:35 01/01/17 08:35 01/01/17 08:35 Plan Activity: advance as tolerated, no driving until cleared by PCP (according [place],. for at least 6 months till seizure free and cleared by neurologist), fall precautions Diet: low fat Special Instructions: record daily BP diary, smoking cessation Follow up with: PRIMARY CARE, [Primary Care Provider] - 3-5 Days SHANEKA DUQUE MD [Staff Physician] - 7 Days SHANNAN SCHMIDT MD [Staff Physician] - 7 Days Prescriptions: Pravastatin Sodium [Pravastatin] 20 mg PO QHS #60 tablet amLODIPine [Norvasc] 10 mg PO QDAY #30 tablet Aspirin [Aspirin BABY CHEW TAB] 81 mg PO QDAY #30 tab.chew Carvedilol [Coreg] 25 mg PO BID #30 tablet levETIRAcetam [Keppra TAB] 750 mg PO BID #60 tablet
[2017-01-01] MEDS: COREG PO SCH ×2 (10:20→22:27)
[2017-01-01] MEDS: NORVASC PO SCH (10:20)
[2017-01-01] MEDS: BABY ASPIRIN PO SCH (10:20)
[2017-01-01] MEDS: KEPPRA PO SCH ×2 (10:21→22:26)
--- NOTE | 2017-01-01 11:35 | Progress Note ---
Assessment and Plan Assessment: ? Seizure / AMS - head CT with NAF. Elevated troponin - flat; pt denies chest pain. HTN ARF v. CKD Tobacco use / cocaine use - denies illicit drug use, toxicology positive for cocaine. Plan: Await echo. Cont tele. Optimize anti-hypertensive regimen - initiate hydralazine, 100mg PO BID. Plan for lexiscan MPI stress in AM. The patient has been seen in conjunction with Dr. Almonte who agrees with the assessment and plan of care. Subjective Date of service: 01/01/17 Principal diagnosis: ? seizure / elevated trop Interval history: resting in bed, NAD. BPs elevated this AM. Objective Last Vital Signs Temp 98.7 F 01/01/17 08:35 Pulse 77 01/01/17 08:35 Resp 20 01/01/17 08:35 BP 187/109 01/01/17 08:35 Pulse Ox 99 01/01/17 08:35 - Physical Examination HEENT: Positive: PERRL, Normocephaly, Mucus Membranes Moist Neck: Positive: neck supple, trachea midline Neuro: Positive: Grossly Intact, Cranial Nerve 2-12 Intact, Motor Function Intact Abdomen: Positive: Unremarkable, Soft, Active Bowel Sounds. Negative: Tender Skin: Positive: Clear. Negative: Rash, Wound Musculoskeletal: No Fluid Collection, No Pain, Normal Range of Motion Extremities: Present: normal, upper extr. pulses, lower extr. pulses. Absent: edema - Labs and Meds Cardiac Enzymes 12/31/16 12/31/16 Range/Units 13:40 18:08 CK-MB (CK-2) 3.7 3.0 (0.0-4.0) ng/mL CBC 01/01/17 Range/Units 06:05 WBC 5.5 (4.5-11.0) K/mm3 RBC 3.50 L (3.65-5.03) M/mm3 Hgb 11.4 L (11.8-15.2) gm/dl Hct 34.0 L (35.5-45.6) % Plt Count 295 (140-440) K/mm3 Lymph # 2.1 (1.2-5.4) K/mm3 [place] # 0.5 (0.0-0.8) K/mm3 Eos # 0.3 (0.0-0.4) K/mm3 Baso # 0.1 (0.0-0.1) K/mm3 Comprehensive Metabolic Panel 01/01/17 Range/Units 06:05 Sodium 142 (137-145) mmol/L Potassium 4.0 (3.6-5.0) mmol/L Chloride 111.0 H (98-107) mmol/L Carbon Dioxide 22 (22-30) mmol/L BUN 27 H (9-20) mg/dL Creatinine 2.0 H (0.8-1.5) mg/dL Glucose 100 (75-100) mg/dL Calcium 8.4 (8.4-10.2) mg/dL - Imaging and Cardiology EKG: report reviewed, image reviewed Echo: pending - EKG Sinus rhythms and dysrhythmias: sinus bradycardia Repolarization changes or abnormalities: ST or T wave suggestive of ischemia (t- wave inversions in lateral leads) Myocardial infarction: septal [place] (old age or ind
--- NOTE | 2017-01-01 13:08 | Event Note ---
Date: 01/01/17 MRI Brain +/- charity reviewed revealing chronic L posterior parietal/occipital encephalomalacia ? infarct vs. post traumatic. Also UTox +cocaine. 56 YO M Hx documented Sz disorder on ? AED but pt denies Sz Hx or Hx abnormal CTH who reportedly witnessed to have 3 ? GTCs on 12/30 and is gradually returning to baseline w/o recurrence since admission. Clinical exam drowsy disorientated but following commands w/ subtle R hemiparesis that pt states is baseline through he denies head injury/stroke. Plan and Recommendation: 1. Telemetry bed w/ Q4 hour neuro checks & Sz precautions 2. Labs: Serum/Urine Tox, UA/UCx, Electrolytes especially Na, Ca, Mg, and Glucose, TSH, 3. AED therapy: Cont LEV 750mg BID for now while home meds reconciled. 4. Avoid meds that can lower sz threshold e.g. Tramadol, fluroquinolones, carbapenems 5. Pt advised of [place] driving regulations: report date of presumed Seizure/ unexplained loss of consciousness/awareness spell to [facility], refrain from operating a motor vehicle for 6 months after this date, and avoid unsupervised activity particularly around water or heights 6. We can revisit as needed. 7. Outpt neuro follow up
--- NOTE | 2017-01-01 13:18 | Progress Note ---
Assessment and Plan - Patient Problems (1) Renal failure Current Visit: Yes Status: Acute Plan to address problem: Renal function reviewed. 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 (4) Elevated troponin Current Visit: Yes Status: Acute Plan to address problem: Scheduled for Nuclear stress test in a.m as per Cardiology Subjective Date of service: 01/01/17 Principal diagnosis: ? seizure / elevated trop Interval history: Patient seen lying in bed. No complaints voiced. Objective - Vital Signs Vital signs: Vital Signs - 12hr 01/01/17 01/01/17 01/01/17 04:00 08:35 13:03 Temperature 98.1 F 98.7 F 98.8 F Pulse Rate [ 67 77 Left From Monitor] Pulse Rate [ 79 Left Radial] Respiratory 18 20 20 Rate Blood Pressure 169/119 187/109 181/112 [Left Arm] O2 Sat by Pulse 97 99 95 Oximetry - General Appearance General appearance: well-developed, appears stated age EENT: ATNC, PERRL, hearing intact, vision intact Neck: no JVD, supple Respiratory: Present: Clear to Ascultation Cardiology: regular, S1S2 Gastrointestinal: normoactive bowel sounds Integumentary: warm and dry Neurologic: alert and oriented x3 Musculoskeletal: other Psychiatric: cooperative - Lab 01/01/17 06:05 01/01/17 06:05 Most recent lab results Calcium 8.4 mg/dL (8.4-10.2) 01/01/17 06:05 Phosphorus 2.9 mg/dL (2.5-4.5) 01/01/17 06:05 Magnesium 2.5 mg/dL (1.7-2.3) H 12/30/16 09:00
[2017-01-01] MEDS: APRESOLINE PO SCH ×2 (14:22→22:27)
--- NOTE | 2017-01-01 17:05 | Progress Note ---
Assessment and Plan Assessment and plan: Patient is a a pleasant 56 year old male with hx of HTN, Seizure, CKD, admitted with seizures. * Seizure * Acute kidney injury on chronic kidney disease likely secondary to HTN * Acute metabolic encephalopathy * HTN * NSTEMI type 2 Plan: * Supportive care, q4 hr neuro checks * Continue LEV 750mg bid * Continue fluids, Urinalysis * RENAL STUDIES PENDING * PROTEINURIA * Echocardiogram to rule out cardiomyopathy * Coreg increased Coreg 25mg BID, Amlopidine 10mg daily * Mental status improved * If continued History Interval history: Patient seen and examined, in no acute distress. Denies any chest pain, nausea vomiting diarrhea Hospitalist Physical - Physical exam Narrative exam: VITAL SIGNS: Reviewed. GENERAL: The patient appeared well nourished and normally developed. Vital signs as documented. HEAD: No signs of head trauma. EYES: Pupils are equal. Extraocular motions intact. EARS: Hearing grossly intact. MOUTH: Oropharynx is normal. NECK: No adenopathy, no JVD. CHEST: Chest with clear breath sounds bilaterally. No wheezes, rales, or rhonchi. CARDIAC: Regular rate and rhythm. S1 and S2, without murmurs, gallops, or rubs. VASCULAR: No Edema. Peripheral pulses normal and equal in all extremities. ABDOMEN: Soft, without detectable tenderness. No sign of distention. No rebound or guarding, and no masses palpated. Bowel Sounds normal. MUSCULOSKELETAL: Good range of motion of all major joints. Extremities without clubbing, cyanosis or edema. NEUROLOGIC EXAM: Alert and oriented x 3 no focal neurological deficit Speech normal. Follows commands. PSYCHIATRIC: Mood normal. SKIN: No rash or lesions. - Constitutional Vitals: Temp Pulse Resp BP Pulse Ox 98.8 F 79 20 181/112 95 01/01/17 13:03 01/01/17 13:03 01/01/17 13:03 01/01/17 13:03 01/01/17 13:03 General appearance: Present: no acute distress Results - Labs CBC & Chem 7: 01/01/17 06:05 01/01/17 06:05 Labs: Laboratory Last Values WBC 5.5 K/mm3 (4.5-11.0) 01/01/17 06:05 RBC 3.50 M/mm3 (3.65-5.03) L 01/01/17 06:05 Hgb 11.4 gm/dl (11.8-15.2) L 01/01/17 06:05 Hct 34.0 % (35.5-45.6) L 01/01/17 06:05 MCV 97 fl (84-94) H 01/01/17 06:05 MCH 33 pg (28-32) H 01/01/17 06:05 MCHC 34 % (32-34) 01/01/17 06:05 RDW 14.6 % (13.2-15.2) 01/01/17 06:05 Plt Count 295 K/mm3 (140-440) 01/01/17 06:05 Lymph % (Auto) 37.9 % (13.4-35.0) H 01/01/17 06:05 [place] % (Auto) 8.5 % (0.0-7.3) H 01/01/17 06:05 Eos % (Auto) 4.7 % (0.0-4.3) H 01/01/17 06:05 Baso % (Auto) 2.7 % (0.0-1.8) H 01/01/17 06:05 Lymph # 2.1 K/mm3 (1.2-5.4) 01/01/17 06:05 [place] # 0.5 K/mm3 (0.0-0.8) 01/01/17 06:05 Eos # 0.3 K/mm3 (0.0-0.4) 01/01/17 06:05 Baso # 0.1 K/mm3 (0.0-0.1) 01/01/17 06:05 Seg Neutrophils % 46.2 % (40.0-70.0) 01/01/17 06:05 Seg Neutrophils # 2.5 K/mm3 (1.8-7.7) 01/01/17 06:05 Sodium 142 mmol/L (137-145) 01/01/17 06:05 Potassium 4.0 mmol/L (3.6-5.0) 01/01/17 06:05 Chloride 111.0 mmol/L (98-107) H 01/01/17 06:05 Carbon Dioxide 22 mmol/L (22-30) 01/01/17 06:05 Anion Gap 13 mmol/L 01/01/17 06:05 BUN 27 mg/dL (9-20) H 01/01/17 06:05 Creatinine 2.0 mg/dL (0.8-1.5) H 01/01/17 06:05 Estimated GFR 42 ml/min 01/01/17 06:05 BUN/Creatinine Ratio 13.50 % 01/01/17 06:05 Glucose 100 mg/dL (75-100) 01/01/17 06:05 Calcium 8.4 mg/dL (8.4-10.2) 01/01/17 06:05 Phosphorus 2.9 mg/dL (2.5-4.5) 01/01/17 06:05 Magnesium 2.5 mg/dL (1.7-2.3) H 12/30/16 09:00 Total Creatine Kinase 179 units/L (55-170) H 12/31/16 18:08 CK-MB (CK-2) 3.0 ng/mL (0.0-4.0) 12/31/16 18:08 CK-MB (CK-2) Rel Index 1.6 (0-4) 12/31/16 18:08 Troponin T 0.076 ng/mL (0.00-0.029) H 12/31/16 18:08 Triglycerides 47 mg/dL (2-149) 12/30/16 17:03 Cholesterol 172 mg/dL (50-199) 12/30/16 17:03 LDL Cholesterol Direct 92 mg/dL (50-130) 12/30/16 17:03 HDL Cholesterol 71 mg/dL (40-59) H 12/30/16 17:03 Cholesterol/HDL Ratio 2.42 % 12/30/16 17:03 Urine Color Straw (Yellow) 12/30/16 09:00 Urine Turbidity Clear (Clear) 12/30/16 09:00 Urine pH 6.0 (5.0-7.0) 12/30/16 09:00 Ur Specific [place] 1.009 (1.003-1.030) 12/30/16 09:00 Urine Protein 100 mg/dl mg/dL (Negative) 12/30/16 09:00 Urine Glucose (UA) 50 mg/dL (Negative) 12/30/16 09:00 Urine Ketones Neg mg/dL (Negative) 12/30/16 09:00 Urine Blood Mod (Negative) 12/30/16 09:00 Urine Nitrite Neg (Negative) 12/30/16 09:00 Urine Bilirubin Neg (Negative) 12/30/16 09:00 Urine Urobilinogen < 2.0 mg/dL (<2.0) 12/30/16 09:00 Ur Leukocyte Esterase Neg (Negative) 12/30/16 09:00 Urine WBC (Auto) 1.0 /HPF (0.0-6.0) 12/30/16 09:00 Urine RBC (Auto) 4.0 /HPF (0.0-6.0) 12/30/16 09:00 Urine Bacteria (Auto) 1+ /HPF (Negative) 12/30/16 09:00 Salicylates < 0.3 mg/dL (2.8-20.0) L 12/30/16 09:05 Urine Opiates Screen Presumptive negative 12/30/16 09:00 Urine Methadone Screen Presumptive negative 12/30/16 09:00 Acetaminophen < 15.0 ug/mL (10.0-30.0) 12/30/16 09:05 Ur Barbiturates Screen Presumptive negative 12/30/16 09:00 Phenytoin 1.3 mg/L (10.0-20.0) L 12/30/16 05:40 Ur Phencyclidine Scrn Presumptive negative 12/30/16 09:00 Ur Amphetamines Screen Presumptive negative 12/30/16 09:00 U Benzodiazepines Scrn Presumptive negative 12/30/16 09:00 Urine Cocaine Screen Presumptive positive 12/30/16 09:00 U Marijuana (THC) Screen Presumptive negative 12/30/16 09:00 Drugs of Abuse Note Disclamer 12/30/16 09:00 Plasma/Serum Alcohol < 0.01 gm% (0-0.07) 12/30/16 09:05
[2017-01-01] MEDS ORDERED: TYLENOL PO PRN (22:13)
[2017-01-02] MEDS ORDERED: MORPHINE IV PRN (00:36)
[2017-01-02 06:36] LABS: Basophils % (Auto) 1.5 % (0.0-1.8); Eosinophils % (Auto) 4.3 % (0.0-4.3); Hematocrit 35.3 % (35.5-45.6); Hemoglobin 11.7 gm/dl (11.8-15.2); Mean Corpuscular HGB Conc 33 % (32-34); Mean Corpuscular Hemoglobin 32 pg (28-32); Mean Corpuscular Volume 97 fl (84-94); Platelet Count 308 K/mm3 (140-440); Red Blood Count 3.63 M/mm3 (3.65-5.03); Red Cell Distribution Width 14.4 % (13.2-15.2); White Blood Count 5.5 K/mm3 (4.5-11.0)
[2017-01-02 06:56] LABS: BUN/Creatinine Ratio 13.15; Calcium 8.3 mg/dL (8.4-10.2); Chloride 108.9 mmol/L (98-107); Phosphorous 2.9 mg/dL (2.5-4.5); Potassium 4.1 mmol/L (3.6-5.0)
[2017-01-02] MEDS ORDERED: LEXISCAN IV ONE ×2 (08:43→08:57)
--- NOTE | 2017-01-02 09:11 | Progress Note ---
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 Renally dose meds Strict I&O Renal diet Daily weights Monitor renal function closely (2) Hypertension associated with stage 3 chronic kidney disease due to type 2 diabetes mellitus Current Visit: Yes Status: Acute Plan to address problem: improved (3) Altered mental status Current Visit: Yes Status: Acute Qualifiers: Altered mental status type: disorientation Coma depth: C Coma timing: C Qualified Code(s): R41.0 - Disorientation, unspecified Plan to address problem: resolved (4) Elevated troponin Current Visit: Yes Status: Acute Plan to address problem: Scheduled for Nuclear stress test today Subjective Date of service: 01/02/17 Principal diagnosis: renal failure Interval history: patient was not in his room this AM Objective - Vital Signs Vital signs: Vital Signs - 12hr 01/02/17 01/02/17 00:00 04:00 Temperature 98.2 F 98.1 F Pulse Rate [ 82 74 Left Radial] Respiratory 18 18 Rate Blood Pressure 143/87 142/84 [Left Arm] O2 Sat by Pulse 97 99 Oximetry - Lab 01/02/17 05:51 01/02/17 05:51 Most recent lab results Calcium 8.3 mg/dL (8.4-10.2) L 01/02/17 05:51 Phosphorus 2.9 mg/dL (2.5-4.5) 01/02/17 05:51 Magnesium 2.5 mg/dL (1.7-2.3) H 12/30/16 09:00
--- NOTE | 2017-01-02 09:45 | Progress Note ---
Assessment and Plan Assessment: ? Seizure / AMS - head CT with NAF. Elevated troponin - flat; pt denies chest pain. 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 Plan: Echo reviewed - EF 40 - 45%, impaired relaxation, RA mildly dilated, RV thickness mildly increased, mild AR, trace MR, mild to moderate LVH Currently stable cardiac status. Cont current medical management, including ASA , norvasc, BB, and hydralazine. Proceed with lexiscan MPI stress test this AM. Await findings. The patient has been seen in conjunction with Dr. Almonte who agrees with the assessment and plan of care. Subjective Date of service: 01/02/17 Principal diagnosis: renal failure Interval history: seen in stress lab, resting in bed, NAD. BPs improved. Objective Last Vital Signs Temp 98.1 F 01/02/17 04:00 Pulse 74 01/02/17 04:00 Resp 18 01/02/17 04:00 BP 142/84 01/02/17 04:00 Pulse Ox 99 01/02/17 04:00 - Physical Examination General: Appears Well, No Apparent Distress HEENT: Positive: PERRL, Normocephaly, Mucus Membranes Moist Neck: Positive: neck supple, trachea midline Cardiac: Positive: Reg Rate and Rhythm, S1/S2 Lungs: Positive: Normal Exam, clear to auscultation, Normal Breath Sounds Neuro: Positive: Grossly Intact, Cranial Nerve 2-12 Intact, Motor Function Intact Abdomen: Positive: Unremarkable, Soft, Active Bowel Sounds. Negative: Tender Skin: Positive: Clear. Negative: Rash, Wound Musculoskeletal: No Fluid Collection, No Pain, Normal Range of Motion Extremities: Present: normal, upper extr. pulses, lower extr. pulses. Absent: edema - Labs and Meds CBC 01/02/17 Range/Units 05:51 WBC 5.5 (4.5-11.0) K/mm3 RBC 3.63 L (3.65-5.03) M/mm3 Hgb 11.7 L (11.8-15.2) gm/dl Hct 35.3 L (35.5-45.6) % Plt Count 308 (140-440) K/mm3 Lymph # 2.2 (1.2-5.4) K/mm3 [place] # 0.5 (0.0-0.8) K/mm3 Eos # 0.2 (0.0-0.4) K/mm3 Baso # 0.1 (0.0-0.1) K/mm3 Comprehensive Metabolic Panel 01/02/17 Range/Units 05:51 Sodium 141 (137-145) mmol/L Potassium 4.1 (3.6-5.0) mmol/L Chloride 108.9 H (98-107) mmol/L Carbon Dioxide 19 L (22-30) mmol/L BUN 25 H (9-20) mg/dL Creatinine 1.9 H (0.8-1.5) mg/dL Glucose 106 H (75-100) mg/dL Calcium 8.3 L (8.4-10.2) mg/dL - Imaging and Cardiology EKG: report reviewed, image reviewed Echo: report reviewed (12/31/2016: EF 40 - 45%, impaired relaxation, RA mildly dilated, RV thickness mildly increased, mild AR, trace MR, mild to moderate LVH) - Telemetry EKG Rhythm: Sinus Rhythm - EKG Sinus rhythms and dysrhythmias: sinus bradycardia Repolarization changes or abnormalities: ST or T wave suggestive of ischemia (t- wave inversions in lateral leads) Myocardial infarction: septal [place] (old age or ind
[2017-01-02] MEDS: APRESOLINE PO SCH (11:10)
[2017-01-02] MEDS: NORVASC PO SCH (11:10)
[2017-01-02] MEDS: KEPPRA PO SCH (11:11)
[2017-01-02] MEDS: BABY ASPIRIN PO SCH (11:11)
[2017-01-02] MEDS: COREG PO SCH (11:11)
[2017-01-02 11:12] VITALS: BP 181/110
--- NOTE | 2017-01-02 12:29 | Progress Note ---
Subjective Date of service: 01/02/17 Principal diagnosis: renal failure Interval history: Stress test this AM revealed no evidence of ischemia; EF 42%. 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 Currently stable cardiac status. Cont current medical management. Will see PRN. Recommend follow up in our office within 1-2 weeks of hospital discharge. Poli ALEGRIA NP / DR. BALLESTEROS Objective Vital Signs Temp Pulse Pulse Resp BP BP Pulse Ox 01/02/17 11:11 64 181/110 01/02/17 11:10 64 181/110 01/02/17 09:39 88 163/103 01/02/17 09:38 88 163/103 01/02/17 09:37 85 168/103 01/02/17 09:36 92 H 148/91 01/02/17 09:35 78 149/93 01/02/17 08:47 65 180/113 01/02/17 04:00 98.1 F 74 18 142/84 99 01/02/17 00:00 98.2 F 82 18 143/87 97 01/01/17 20:29 81 01/01/17 20:00 98.5 F 79 18 147/95 98 01/01/17 17:22 98.4 F 83 20 148/91 96 01/01/17 13:03 98.8 F 79 20 181/112 95 - Physical Examination General: Appears Well, No Apparent Distress HEENT: Positive: PERRL, Normocephaly, Mucus Membranes Moist Neck: Positive: neck supple, trachea midline Neuro: Positive: Grossly Intact, Cranial Nerve 2-12 Intact, Motor Function Intact Abdomen: Positive: Unremarkable, Soft, Active Bowel Sounds. Negative: Tender Skin: Positive: Clear. Negative: Rash, Wound Musculoskeletal: No Fluid Collection, No Pain, Normal Range of Motion Extremities: Present: normal, upper extr. pulses, lower extr. pulses. Absent: edema - Labs and Meds CBC 01/02/17 Range/Units 05:51 WBC 5.5 (4.5-11.0) K/mm3 RBC 3.63 L (3.65-5.03) M/mm3 Hgb 11.7 L (11.8-15.2) gm/dl Hct 35.3 L (35.5-45.6) % Plt Count 308 (140-440) K/mm3 Lymph # 2.2 (1.2-5.4) K/mm3 [place] # 0.5 (0.0-0.8) K/mm3 Eos # 0.2 (0.0-0.4) K/mm3 Baso # 0.1 (0.0-0.1) K/mm3 Comprehensive Metabolic Panel 01/02/17 Range/Units 05:51 Sodium 141 (137-145) mmol/L Potassium 4.1 (3.6-5.0) mmol/L Chloride 108.9 H (98-107) mmol/L Carbon Dioxide 19 L (22-30) mmol/L BUN 25 H (9-20) mg/dL Creatinine 1.9 H (0.8-1.5) mg/dL Glucose 106 H (75-100) mg/dL Calcium 8.3 L (8.4-10.2) mg/dL - Imaging and Cardiology EKG: report reviewed, image reviewed Echo: report reviewed (12/31/2016: EF 40 - 45%, impaired relaxation, RA mildly dilated, RV thickness mildly increased, mild AR, trace MR, mild to moderate LVH) - EKG Sinus rhythms and dysrhythmias: sinus bradycardia Repolarization changes or abnormalities: ST or T wave suggestive of ischemia (t- wave inversions in lateral leads) Myocardial infarction: septal [place] (old age or ind
[2017-01-02] MEDS ORDERED: APRESOLINE IV PRN (14:00)
--- NOTE | 2017-01-02 16:45 | Event Note ---
Date: 01/02/17 Please see discharge note dated 01/01/17 it is for today. patient was seen and examined prior to discharge and in no acute distress. Counselling was repeated, He verbalized understanding also the rules about not driving, Diving or operating motorized vehicles for at least 6 months and until cleared by Neurology. and he is stable. VITAL SIGNS: Reviewed. GENERAL: The patient appeared well nourished and normally developed. Vital signs as documented. HEAD: No signs of head trauma. EYES: Pupils are equal. Extraocular motions intact. EARS: Hearing grossly intact. MOUTH: Oropharynx is normal. NECK: No adenopathy, no JVD. CHEST: Chest with clear breath sounds bilaterally. No wheezes, rales, or rhonchi. CARDIAC: Regular rate and rhythm. S1 and S2, without murmurs, gallops, or rubs. VASCULAR: No Edema. Peripheral pulses normal and equal in all extremities. ABDOMEN: Soft, without detectable tenderness. No sign of distention. No rebound or guarding, and no masses palpated. Bowel Sounds normal. MUSCULOSKELETAL: Good range of motion of all major joints. Extremities without clubbing, cyanosis or edema. NEUROLOGIC EXAM: Alert and oriented x 3. No focal sensory or strength deficits. Speech normal. Follows commands. PSYCHIATRIC: Mood normal. SKIN: No rash or lesions.
--- NOTE | 2017-01-03 01:07 | Treadmill Report ---
PROCEDURE: Single-isotope dual study myocardial perfusion. REFERRING PHYSICIAN: Lan Morton. DESCRIPTION OF PROCEDURE: The patient received 10 mCi of technetium 99m Myoview intravenously under resting conditions. Resting myocardial perfusion scan was done. Subsequently, the patient underwent Lexiscan stress test as per the protocol. During Lexiscan stress test, the patient received 28 mCi of technetium 99m Myoview intravenously. After 30-60 minutes, post stress images were done. Computerized reconstruction images were performed for analysis. The post-stress images revealed uniform distribution of the radiopharmaceutical in the left ventricular myocardium. The left ventricle was found to be mildly dilated. Gated study revealed [id number] global hypokinesia with LVEF around 42%. The resting images did not reveal any perfusion abnormality. CONCLUSION: 1. No perfusion abnormality of the left ventricular myocardium was demonstrated in the resting as well as stress images obtained after the patient underwent Lexiscan stress test. 2. Mildly dilated left ventricle. 3. Mild to moderate global left ventricular systolic dysfunction with LVEF around 42%. JOB# [id number] [facility]
[2017-01-03 04:41] LABS: Albumin 2.6 g/dL (3.8-4.8); Gamma Globulin 1.1 g/dL (0.8-1.7)
== END 2017-01-02 15:41 | disposition home or self-care (01) | DRG 100 ==
LOC: ED 04:40 → 4A 12:12
PROVIDERS: ADMIT Internal Medicine; ATTEND Internal Medicine
PROC: 4A02XM4 Measurement of Cardiac Total Activity, External Approach (ICD-10-PCS; principal; 2017-01-02)
DX: G40.909 Epilepsy, unspecified, not intractable, without status epilepticus (principal); G93.41 Metabolic encephalopathy; I21.4 Non-ST elevation (NSTEMI) myocardial infarction; N17.9 Acute kidney failure, unspecified; I42.9 Cardiomyopathy, unspecified; I12.9 Hypertensive chronic kidney disease with stage 1 through stage 4 chronic kidney disease, or unspecified chronic kidney disease; E11.22 Type 2 diabetes mellitus with diabetic chronic kidney disease; N18.3 Chronic kidney disease, stage 3 (moderate); F14.10 Cocaine abuse, uncomplicated; F17.210 Nicotine dependence, cigarettes, uncomplicated; Z60.2 Problems related to living alone; Z91.14 Patient's other noncompliance with medication regimen
CPT/HCPCS: 36415; 70450; 70553; 71010; 72125; 76770; 78452; 80048; 80061; 80185; 80307; 80320; 81001; 82550; 82553; 83735; 84100; 84165; 84484; 85025; 85027; 93005; 93010; 93017; 93306; 96361; 96365; 96375; 96376; A9502; A9577; G0480; J0153; J0360; J1953; J2060; J2270; J2785; J3360; J7030

== ENCOUNTER 2017-11-22 15:14 | Emergency (ER) | payer SELFPAY ==
[2017-11-22] MEDS ORDERED: D50W (25GM) Syringe IV ONE (16:52)
[2017-11-22] MEDS ORDERED: KEPPRA 1,000 MG/NS 0.75% 100ML 1,000 MG/100 ML BAG IV ONE (16:52)
[2017-11-22] MEDS ORDERED: APRESOLINE IV ONE (16:54)
[2017-11-22 16:56] LABS: Hematocrit 32.7 % (35.5-45.6); Mean Corpuscular HGB Conc 34 % (32-34); Mean Corpuscular Hemoglobin 33 pg (28-32); Mean Corpuscular Volume 98 fl (84-94); Platelet Count 282 K/mm3 (140-440); Red Blood Count 3.34 M/mm3 (3.65-5.03); Red Cell Distribution Width 14.7 % (13.2-15.2)
[2017-11-22 16:58] LABS: Calcium 8.3 mg/dL (8.4-10.2)
--- NOTE | 2017-11-22 17:00 | Emergency Department Report ---
ED Seizure HPI - General Chief Complaint: Seizure Stated Complaint: SEIZURE Time Seen by Provider: 11/22/17 16:47 Source: patient, EMS Mode of arrival: Stretcher Limitations: No Limitations - History of Present Illness Initial Comments: Patient is 57 years old male history of seizure, hypertension and chronic kidney disease. Patient is homeless and noncompliant with his medication per His report. Patient stated that he had four seizure today. He does not remember the last time he took his Keppra. Patient denied any head injury or other injuries. MD Complaint: seizure -: Sudden Description of Episode: loss of consciousness, tonic-clonic movement, bladder incontinence, post-event confusion Witnessed:: Yes Trauma: No Seizure History: known seizure disorder Place: street/outdoors Possible Precipitating Event: none Associated Symptoms: denies other symptoms Treatments Prior to Arrival: none - Related Data Previous Rx's Medication Instructions Recorded Last Taken Type Aspirin [Aspirin BABY CHEW TAB] 81 mg PO QDAY #30 tab.chew 11/22/17 Unknown Rx Carvedilol [Coreg] 25 mg PO BID #30 tablet 11/22/17 Unknown Rx Pravastatin Sodium [Pravastatin] 20 mg PO QHS #60 tablet 11/22/17 Unknown Rx amLODIPine [Norvasc] 10 mg PO QDAY #30 tablet 11/22/17 Unknown Rx levETIRAcetam [Keppra TAB] 750 mg PO BID #60 tablet 11/22/17 Unknown Rx Allergies Allergy/AdvReac Type Severity Reaction Status Date / Time No Known Allergies Allergy Verified 11/22/17 15:33 ED Review of Systems ROS: Stated complaint: SEIZURE Other details as noted in HPI Comment: All other systems reviewed and negative Constitutional: denies: chills, fever ENT: denies: throat pain, dental pain, hearing loss Respiratory: denies: cough, orthopnea, shortness of breath Cardiovascular: denies: chest pain, palpitations, dyspnea on exertion Gastrointestinal: denies: abdominal pain, nausea, vomiting, diarrhea, constipation, hematemesis, melena, hematochezia Genitourinary: denies: urgency, dysuria, frequency, hematuria Neurological: denies: headache, weakness, numbness, paresthesias, confusion, abnormal gait, vertigo Psychiatric: denies: anxiety ED Past Medical Hx - Past Medical History Hx Hypertension: Yes Hx Arthritis: Yes (knees) Hx Seizures: Yes - Surgical History Past Surgical History?: No - Social History Smoking Status: Current Every Day Smoker Substance Use Type: Alcohol, Cocaine, Marijuana - Medications Home Medications: Home Medications Medication Instructions Recorded Confirmed Last Taken Type Aspirin [Aspirin BABY CHEW TAB] 81 mg PO QDAY #30 tab.chew 11/22/17 Unknown Rx Carvedilol [Coreg] 25 mg PO BID #30 tablet 11/22/17 Unknown Rx Pravastatin Sodium [Pravastatin] 20 mg PO QHS #60 tablet 11/22/17 Unknown Rx amLODIPine [Norvasc] 10 mg PO QDAY #30 tablet 11/22/17 Unknown Rx levETIRAcetam [Keppra TAB] 750 mg PO BID #60 tablet 11/22/17 Unknown Rx ED Physical Exam - General Limitations: No Limitations General appearance: alert, in no apparent distress - Head Head exam: Present: atraumatic, normocephalic, normal inspection - ENT ENT exam: Present: normal exam, normal orophraynx, mucous membranes moist, other (abrasion to the left side of the tongue secondary to patient pitting himself why he had a seizure) - Neck Neck exam: Present: normal inspection, full ROM. Absent: tenderness, meningismus, lymphadenopathy, thyromegaly - Respiratory Respiratory exam: Present: normal lung sounds bilaterally. Absent: respiratory distress, wheezes, rales, chest wall tenderness - Cardiovascular Cardiovascular Exam: Present: regular rate, normal rhythm, normal heart sounds - GI/Abdominal GI/Abdominal exam: Present: soft, normal bowel sounds. Absent: distended, tenderness, guarding, rebound, rigid, organomegaly, mass, bruit, pulsatile mass - Extremities Exam Extremities exam: Present: normal inspection, full ROM. Absent: normal capillary refill, pedal edema, calf tenderness - Back Exam Back exam: Present: normal inspection, full ROM. Absent: tenderness, CVA tenderness (R), CVA tenderness (L) - Neurological Exam Neurological exam: Present: alert, oriented X3, CN II-XII intact, normal gait - Skin Skin exam: Present: warm, intact, normal color. Absent: cyanosis, diaphoretic ED Course Vital Signs 11/22/17 11/22/17 11/22/17 15:33 17:35 19:42 Temperature 98.4 F Pulse Rate 75 88 110 H Respiratory 20 16 Rate Blood Pressure 174/111 154/98 Blood Pressure 171/98 [Left] O2 Sat by Pulse 100 95 Oximetry ED Medical Decision Making - Lab Data Result diagrams: 11/22/17 16:38 11/22/17 16:38 - Medical Decision Making Discussed with Dr. Santo, I presented the patient, he agreed to admit to his service. Critical care attestation.: If time is entered above; I have spent that time in minutes in the direct care of this critically ill patient, excluding procedure time. ED Disposition Clinical Impression: Renal failure, Seizure disorder, Malignant hypertension, Hypoglycemia Disposition: DC- TO HOME OR SELFCARE Is pt being admited?: Yes Condition: Stable Instructions: Hypertension (ED) Prescriptions: Pravastatin Sodium [Pravastatin] 20 mg PO QHS #60 tablet amLODIPine [Norvasc] 10 mg PO QDAY #30 tablet Aspirin [Aspirin BABY CHEW TAB] 81 mg PO QDAY #30 tab.chew Carvedilol [Coreg] 25 mg PO BID #30 tablet levETIRAcetam [Keppra TAB] 750 mg PO BID #60 tablet Referrals: PRIMARY CARE, [Primary Care Provider] - 3-5 Days
[2017-11-22 17:30] LABS: Alanine Aminotransferase 11 units/L (7-56); Albumin 3.1 g/dL (3.9-5)
[2017-11-22 17:36] LABS: Bilirubin,Direct < 0.2 mg/dL (0-0.2)
--- NOTE | 2017-11-22 17:40 | Cat Scan Report ---
FINAL REPORT PROCEDURE: CT head without contrast. TECHNIQUE: Computerized tomography of the head was performed without contrast material. HISTORY: Seizure, high blood pressure. COMPARISON: No prior studies are available for comparison. FINDINGS: The ventricles are normal in size. There is a small, wedge-shaped area of diminished attenuation involving the left parietal lobe. This is located posteriorly. It is fairly well-defined and is consistent with encephalomalacia. There is no mass effect. This likely represents an old infarct. Clinical correlation is recommended. There is a 2nd small area of probable encephalomalacia involving the posterior portion of the left frontal lobe. This also likely represents an old infarct. There are no signs of acute infarction. There is no intracranial hemorrhage. There is an old lacunar infarct in the right putamen. The calvarium appears intact. The mastoid air cells and visualized paranasal sinuses are clear. 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 No definite signs of acute disease.
--- NOTE | 2017-11-22 17:54 | History and Physical Report ---
History of Present Illness Chief complaint: I had a seizure History of present illness: 57 YO Homeless Male with Seizure Disorder, Medication Noncompliance, HTN, Nicotine Dependence, OA, HLD, CKD presents to ED for evaluation. Pt states that he has experienced multiple seizures today. Pt acknowledges medication noncompliance due to inability to afford medication and does not recall the last time he took his seizure medication. Pt seen and evaluated in ED and treated with keppra loading. Pt medically optimized and back to usual state of health. No seizure activity. Pt discharged home. Past History Past Medical History: arthritis, hypertension, hyperlipidemia, renal failure, seizures Past Surgical History: No surgical history, Other (reviewed) Social history: , smoking Medications and Allergies Allergies Allergy/AdvReac Type Severity Reaction Status Date / Time No Known Allergies Allergy Verified 11/22/17 15:33 Home Medications Medication Instructions Recorded Confirmed Last Taken Type Aspirin [Aspirin BABY CHEW TAB] 81 mg PO QDAY #30 tab.chew 11/22/17 Unknown Rx Carvedilol [Coreg] 25 mg PO BID #30 tablet 11/22/17 Unknown Rx Pravastatin Sodium [Pravastatin] 20 mg PO QHS #60 tablet 11/22/17 Unknown Rx amLODIPine [Norvasc] 10 mg PO QDAY #30 tablet 11/22/17 Unknown Rx levETIRAcetam [Keppra TAB] 750 mg PO BID #60 tablet 11/22/17 Unknown Rx Review of Systems Constitutional: no weight loss, no weight gain, no fever, no chills Ears, nose, mouth and throat: no ear pain, no ear discharge, no tinnitis, no decreased hearing, no nose pain, no nasal congestion Cardiovascular: no chest pain, no orthopnea, no palpitations, no rapid/ irregular heart beat Respiratory: no cough, no cough with sputum, no excessive sputum, no hemoptysis , no shortness of breath Gastrointestinal: no abdominal pain, no nausea, no vomiting, no diarrhea, no constipation Genitourinary Male: no dysuria, no hematuria, no flank pain, no discharge, no urinary frequency, no urinary hesitancy Rectal: no pain, no incontinence, no bleeding Musculoskeletal: no neck stiffness, no neck pain, no shooting arm pain, no arm numbness/tingling, no low back pain Integumentary: no rash, no pruritis, no redness, no sores Neurological: seizures, no head injury, no transient paralysis, no paralysis, no weakness, no parathesias Psychiatric: no anxiety, no memory loss, no change in sleep habits, no sleep disturbances, no insomnia, no hypersomnia Endocrine: no cold intolerance, no heat intolerance, no polyphagia, no excessive thirst Hematologic/Lymphatic: no easy bruising, no easy bleeding, no lymphadenopathy, no lymphedema Allergic/Immunologic: no wheezing Exam - Constitutional Vitals: Temp Pulse Resp BP Pulse Ox 98.4 F 88 20 154/98 100 11/22/17 15:33 11/22/17 17:35 11/22/17 15:33 11/22/17 17:35 11/22/17 15:33 General appearance: Present: no acute distress, disheveled, malodorous - EENT Eyes: Present: PERRL ENT: hearing intact, clear oral mucosa - Neck Neck: Present: supple, normal ROM - Respiratory Respiratory effort: normal Respiratory: bilateral: CTA - Cardiovascular Heart Sounds: Present: S1 & S2. Absent: rub, click - Extremities Extremities: pulses symmetrical, No edema Peripheral Pulses: within normal limits - Abdominal General gastrointestinal: Present: soft, non-tender, non-distended, normal bowel sounds Male genitourinary: Present: normal - Integumentary Integumentary: Present: clear, warm, dry - Musculoskeletal Musculoskeletal: gait normal, strength equal bilaterally - Psychiatric Psychiatric: appropriate mood/affect, intact judgment & insight - Neurologic Neurologic: CNII-XII intact, moves all extremities Results - Labs CBC & Chem 7: 11/22/17 16:38 11/22/17 16:38 Labs: Abnormal lab results 11/22/17 11/22/17 11/22/17 Range/Units 16:37 16:38 16:38 RBC 3.34 L (3.65-5.03) M/mm3 Hgb 11.0 L (11.8-15.2) gm/dl Hct 32.7 L (35.5-45.6) % MCV 98 H (84-94) fl MCH 33 H (28-32) pg Chloride 107.5 H (98-107) mmol/L BUN 36 H (9-20) mg/dL Creatinine 3.5 H (0.8-1.5) mg/dL Glucose 66 L (75-100) mg/dL POC Glucose 61 L (70-105) Calcium 8.3 L (8.4-10.2) mg/dL Total Protein (6.3-8.2) g/dL Albumin (3.9-5) g/dL 11/22/17 Range/Units 16:38 RBC (3.65-5.03) M/mm3 Hgb (11.8-15.2) gm/dl Hct (35.5-45.6) % MCV (84-94) fl MCH (28-32) pg Chloride (98-107) mmol/L BUN (9-20) mg/dL Creatinine (0.8-1.5) mg/dL Glucose (75-100) mg/dL POC Glucose (70-105) Calcium (8.4-10.2) mg/dL Total Protein 6.0 L (6.3-8.2) g/dL Albumin 3.1 L (3.9-5) g/dL Assessment and Plan - Patient Problems (1) Seizure Status: Acute Plan to address problem: Discharge home, f/u pcp 1wk, Neurology 1 wk. (2) Noncompliance with medication regimen Status: Acute Plan to address problem: Pt counseled, No driving until cleared by pcp.
[2017-11-22] MEDS ORDERED: ZOFRAN IV PRN (17:57)
[2017-11-22] MEDS ORDERED: TYLENOL PO PRN (17:57)
[2017-11-22] MEDS ORDERED: PROVENTIL IH PRN (17:57)
[2017-11-22] MEDS ORDERED: ATIVAN IV PRN (17:59)
[2017-11-22] MEDS ORDERED: KEPPRA PO ONE (19:11)
[2017-11-22 19:43] VITALS: BP 171/98
[2017-11-22] MEDS ORDERED: NORVASC PO SCH (20:00)
[2017-11-22] MEDS ORDERED: PRAVACHOL PO SCH (22:00)
[2017-11-22] MEDS ORDERED: COREG PO SCH (22:00)
[2017-11-22] MEDS ORDERED: NON-FORMULARY (Levetiracetam [Keppra Tab] 750 MG) PO SCH (22:00)
[2017-11-22] MEDS ORDERED: NON-FORMULARY (Pravastatin Sodium [Pravastatin] 20 MG) PO SCH (22:00)
[2017-11-23] MEDS ORDERED: NORVASC PO SCH (10:00)
[2017-11-23] MEDS ORDERED: BABY ASPIRIN PO SCH (10:00)
== END 2017-11-22 20:30 | disposition home or self-care (01) ==
LOC: ED 15:14 → 3A 17:57 → UNDOADMIN 17:57 → ED 20:30
DX: N17.9 Acute kidney failure, unspecified (principal); G40.901 Epilepsy, unspecified, not intractable, with status epilepticus; E16.2 Hypoglycemia, unspecified; I10 Essential (primary) hypertension; M19.90 Unspecified osteoarthritis, unspecified site; F17.200 Nicotine dependence, unspecified, uncomplicated; F12.10 Cannabis abuse, uncomplicated; F14.10 Cocaine abuse, uncomplicated; Z79.82 Long term (current) use of aspirin
CPT/HCPCS: 36415; 70450; 80048; 80074; 80177; 82962; 85027; 96365; 96366; 96375; 99285; G0480; J0360; J1953; 80320; A9270-GY

== ENCOUNTER 2019-04-09 13:10 | Inpatient (IN) | payer OTHER ==
--- NOTE | 2019-04-09 13:36 | Event Note ---
ED Screening Note ED Screening Note: pt presents with difficulty breathing the two days states that it is worse when he lays flat +cough, clear sputum no fever PMHx HTN -does not take his medication hasnt taken it in years +smoker +drinker +marijuana This initial assessment/diagnostic orders/clinical plan/treatment(s) is/are subject to change based on patients health status, clinical progression and re- assessment by fellow clinical providers in the ED. Further treatment and workup at subsequent clinical providers discretion. Patient/guardian urged not to elope from the ED as their condition may be serious if not clinically assessed and managed. Initial orders include: labs, CXR, EKG
[2019-04-09 14:03] LABS: Basophils # (Auto) 0.1 K/mm3 (0.0-0.1); Basophils % (Auto) 1.2 % (0.0-1.8); Eosinophils # (Auto) 0.1 K/mm3 (0.0-0.4); Hematocrit 32.6 % (35.5-45.6); Hemoglobin 10.8 gm/dl (11.8-15.2); Lymphocytes # (Auto) 1.1 K/mm3 (1.2-5.4); Lymphocytes % (Auto) 17.5 % (13.4-35.0); Mean Corpuscular HGB Conc 33 % (32-34); Mean Corpuscular Volume 99 fl (84-94); Monocytes # (Auto) 0.5 K/mm3 (0.0-0.8); Monocytes % (Auto) 7.1 % (0.0-7.3); Platelet Count 235 K/mm3 (140-440); Red Blood Count 3.31 M/mm3 (3.65-5.03); Red Cell Distribution Width 16.8 % (13.2-15.2)
--- NOTE | 2019-04-09 14:31 | XRay Report ---
CHEST 2 VIEWS INDICATION: Shortness of breath. COMPARISON: 07/29/2017 report FINDINGS: Support devices: None. Heart: Within normal limits. The aorta is mildly ectatic but well defined. Lungs/pleura: The lungs are hyperinflated with increased interstitial markings. No evidence for infil trate, pleural effusion or pneumothorax. Additional findings: None. IMPRESSION: COPD. No acute cardiopulmonary process. Signer Name: Josse Whittaker Jr, MD Signed: 04/09/2019 2:27 PM Workstation Name: [id number]
[2019-04-09 14:34] LABS: Albumin 3.5 g/dL (3.9-5); Calcium 9.1 mg/dL (8.4-10.2)
[2019-04-09 14:45] LABS: Chol/HDL Ratio 2.38 %
--- NOTE | 2019-04-09 16:08 | Emergency Department Report ---
ED Shortness of Breath HPI - General Chief Complaint: Dyspnea/Respdistress Stated Complaint: PAPITO Time Seen by Provider: 04/09/19 16:02 Source: patient Mode of arrival: Ambulatory Limitations: No Limitations - History of Present Illness Initial Comments: Patient is a 58-year-old male presents to emergency with complaints of shortness of breath and difficulties in breathing. Patient states he feels like he can't take a deep breath in his lungs are filling up with fluids. Patient states he has high blood pressure but he has not taken blood pressure medication for a long time. He states he smokes. Patient states been many years since he seen a doctor. Patient denies chest pain. Patient states his symptoms are worse with exertion and better with rest. Patient denies past medical history except for high blood pressure. MD Complaint: shortness of breath, cough -: Sudden Severity: severe Consistency: constant Improves With: rest, upright position Worsens With: lying flat, exertion, movement Associated Symptoms: cough, orhopnia Treatments Prior to Arrival: none - Related Data Home Oxygen Therapy: No Previous Rx's Medication Instructions Recorded Last Taken Type Aspirin [Aspirin BABY CHEW TAB] 81 mg PO QDAY #30 tab.chew 11/22/17 Unknown Rx Carvedilol [Coreg] 25 mg PO BID #30 tablet 11/22/17 Unknown Rx Pravastatin Sodium [Pravastatin] 20 mg PO QHS #60 tablet 11/22/17 Unknown Rx amLODIPine [Norvasc] 10 mg PO QDAY #30 tablet 11/22/17 Unknown Rx levETIRAcetam [Keppra TAB] 750 mg PO BID #60 tablet 11/22/17 Unknown Rx Allergies Allergy/AdvReac Type Severity Reaction Status Date / Time No Known Allergies Allergy Verified 04/09/19 13:12 ED Review of Systems ROS: Stated complaint: PAPITO Other details as noted in HPI Constitutional: denies: chills, fever Eyes: denies: eye pain, eye discharge, vision change ENT: denies: ear pain, throat pain Respiratory: cough, shortness of breath, SOB with exertion, SOB at rest, wheezing Cardiovascular: denies: chest pain, palpitations Endocrine: no symptoms reported Gastrointestinal: denies: abdominal pain, nausea, diarrhea Genitourinary: denies: urgency, dysuria Musculoskeletal: denies: back pain, joint swelling, arthralgia Skin: denies: rash, lesions Neurological: denies: headache, weakness, paresthesias Psychiatric: denies: anxiety, depression Hematological/Lymphatic: denies: easy bleeding, easy bruising ED Past Medical Hx - Past Medical History Previous Medical History?: Yes Hx Hypertension: Yes Hx Arthritis: Yes (knees) Hx Seizures: Yes - Surgical History Past Surgical History?: No - Family History Family history: no significant - Social History Smoking Status: Current Every Day Smoker Substance Use Type: Alcohol - Medications Home Medications: Home Medications Medication Instructions Recorded Confirmed Last Taken Type Aspirin [Aspirin BABY CHEW TAB] 81 mg PO QDAY #30 tab.chew 11/22/17 Unknown Rx Carvedilol [Coreg] 25 mg PO BID #30 tablet 11/22/17 Unknown Rx Pravastatin Sodium [Pravastatin] 20 mg PO QHS #60 tablet 11/22/17 Unknown Rx amLODIPine [Norvasc] 10 mg PO QDAY #30 tablet 11/22/17 Unknown Rx levETIRAcetam [Keppra TAB] 750 mg PO BID #60 tablet 11/22/17 Unknown Rx ED Physical Exam - General Limitations: No Limitations General appearance: alert, in no apparent distress - Head Head exam: Present: atraumatic, normocephalic - Eye Eye exam: Present: normal appearance - ENT ENT exam: Present: mucous membranes moist - Neck Neck exam: Present: normal inspection - Respiratory Respiratory exam: Present: normal lung sounds bilaterally, wheezes, rales. Absent: respiratory distress - Cardiovascular Cardiovascular Exam: Present: regular rate, normal rhythm. Absent: systolic murmur, diastolic murmur, rubs, gallop - GI/Abdominal GI/Abdominal exam: Present: soft, normal bowel sounds. Absent: distended, tenderness, guarding - Rectal Rectal exam: Present: deferred - Extremities Exam Extremities exam: Present: normal inspection - Back Exam Back exam: Present: normal inspection - Neurological Exam Neurological exam: Present: alert, oriented X3 - Psychiatric Psychiatric exam: Present: normal affect, normal mood - Skin Skin exam: Present: warm, dry, intact, normal color. Absent: rash ED Course Vital Signs 04/09/19 04/09/19 04/09/19 13:34 16:03 16:15 Temperature 98.4 F Pulse Rate 98 H 94 H 105 H Pulse Rate [ Bilateral] Respiratory 18 16 27 H Rate Respiratory Rate [Bilateral ] Blood Pressure 199/139 205/148 O2 Sat by Pulse 100 98 95 Oximetry 04/09/19 04/09/19 04/09/19 16:30 16:45 17:00 Temperature Pulse Rate 105 H 96 H Pulse Rate [ Bilateral] Respiratory 23 26 H Rate Respiratory Rate [Bilateral ] Blood Pressure 206/147 211/143 209/148 O2 Sat by Pulse 90 87 90 Oximetry 04/09/19 04/09/19 04/09/19 17:15 17:30 17:39 Temperature Pulse Rate Pulse Rate [ Bilateral] Respiratory Rate Respiratory Rate [Bilateral ] Blood Pressure 202/150 201/142 O2 Sat by Pulse 99 95 97 Oximetry 04/09/19 04/09/19 04/09/19 17:45 17:46 18:00 Temperature Pulse Rate 109 H 104 H Pulse Rate [ 99 H Bilateral] Respiratory 25 H 20 Rate Respiratory 20 Rate [Bilateral ] Blood Pressure 194/122 194/111 O2 Sat by Pulse 97 99 Oximetry 04/09/19 04/09/19 04/09/19 18:06 18:15 18:30 Temperature Pulse Rate 104 H 113 H Pulse Rate [ 106 H Bilateral] Respiratory 28 H 20 Rate Respiratory 20 Rate [Bilateral ] Blood Pressure 182/106 203/138 O2 Sat by Pulse 98 98 Oximetry 04/09/19 04/09/19 04/09/19 18:45 19:00 19:15 Temperature Pulse Rate 121 H 100 H 99 H Pulse Rate [ Bilateral] Respiratory 30 H 20 22 Rate Respiratory Rate [Bilateral ] Blood Pressure 212/134 181/115 188/116 O2 Sat by Pulse 95 98 98 Oximetry 04/09/19 04/09/19 04/09/19 19:30 19:45 20:00 Temperature Pulse Rate 102 H 97 H 94 H Pulse Rate [ Bilateral] Respiratory 18 22 19 Rate Respiratory Rate [Bilateral ] Blood Pressure 190/123 201/113 186/111 O2 Sat by Pulse 99 98 99 Oximetry 04/09/19 04/09/19 04/09/19 20:15 20:30 20:45 Temperature Pulse Rate 95 H 102 H 91 H Pulse Rate [ Bilateral] Respiratory 15 12 18 Rate Respiratory Rate [Bilateral ] Blood Pressure 189/112 189/119 183/114 O2 Sat by Pulse 97 96 97 Oximetry 04/09/19 04/09/19 04/09/19 20:46 21:00 21:15 Temperature Pulse Rate 81 103 H 91 H Pulse Rate [ Bilateral] Respiratory 14 15 Rate Respiratory Rate [Bilateral ] Blood Pressure 181/120 188/118 O2 Sat by Pulse 99 97 Oximetry 04/09/19 04/09/19 04/09/19 21:30 21:45 22:00 Temperature Pulse Rate 98 H 91 H 94 H Pulse Rate [ Bilateral] Respiratory 10 L 15 26 H Rate Respiratory Rate [Bilateral ] Blood Pressure 189/125 179/115 195/130 O2 Sat by Pulse 97 94 97 Oximetry 04/09/19 04/09/19 04/09/19 22:15 22:30 22:45 Temperature Pulse Rate 87 104 H 87 Pulse Rate [ Bilateral] Respiratory 16 19 18 Rate Respiratory Rate [Bilateral ] Blood Pressure 195/113 186/115 184/120 O2 Sat by Pulse 96 100 97 Oximetry 04/09/19 04/09/19 23:00 23:14 Temperature Pulse Rate 81 104 H Pulse Rate [ Bilateral] Respiratory 14 Rate Respiratory Rate [Bilateral ] Blood Pressure 187/120 187/120 O2 Sat by Pulse 97 Oximetry - Reevaluation(s) Reevaluation #1: Initial evaluation done. Discussed clinical findings with patient. Patient will be given COPD exacerbation and CHF exacerbation meds. Patient has no history of renal disease or CHF or COPD. 04/09/19 16:15 Reevaluation #2: Patient is still having elevated blood pressure and shortness of breath. Patient still wheezing. Patient will be given magnesium and a another breathing treatment. Patient will placed on a nitro drip 04/09/19 17:48 Reevaluation #3: On nitro drip and blood pressure is better. Discussed all results with patient. Patient will be admitted to the hospitalist service. Patient agrees to plan of care. - Consultations Consultation #1: Hospitalist consulted for admission. Hospitalist to admit patient. Hospitalist to assume care patient. 04/09/19 18:29 ED Medical Decision Making - Lab Data Result diagrams: 04/09/19 13:41 04/09/19 13:41 - EKG Data -: EKG Interpreted by Vt EKG shows normal: sinus rhythm, axis, intervals, QRS complexes, ST-T waves Rate: normal - Radiology Data Radiology results: report reviewed CHEST 2 VIEWS INDICATION: Shortness of breath. COMPARISON: 07/29/2017 report FINDINGS: Support devices: None. Heart: Within normal limits. The aorta is mildly ectatic but well defined. Lungs/pleura: The lungs are hyperinflated with increased interstitial markings. No evidence for infiltrate, pleural effusion or pneumothorax. Additional findings: None. IMPRESSION: COPD. No acute cardiopulmonary process. - Medical Decision Making Patient is a 58-year-old male presents emergency with complaints of shortness of breath on exertion. Patient found to have a COPD and CHF exacerbation. Patient was found to have extremely elevated blood pressure. Patient given blood pressure medications. Patient given DuoNeb and site Medrol and antibiotics for COPD exacerbation. Patient given Lasix and Lopressor medications for high blood pressure and CHF and volume overload. The patient also found to have acute renal insufficiency. Patient found to have hyperkalemia. Patient's chest x-ray shows COPD. Patient admitted to the hospitalist service. - Differential Diagnosis COPD. CHF. high blood pressure. Shortness of breath. SPANGLER Critical Care Time: Yes Critical care attestation.: If time is entered above; I have spent that time in minutes in the direct care of this critically ill patient, excluding procedure time. Critical Care Time: 35 minutes ED Disposition Clinical Impression: COPD exacerbation, Elevated troponin, Elevated brain natriuretic peptide (BNP) level, Hyperkalemia, Malignant hypertension Renal failure Qualifiers: Renal failure chronicity: acute Acute renal failure type: unspecified Qualified Code(s): N17.9 - Acute kidney failure, unspecified HTN (hypertension) Qualifiers: Hypertension type: essential hypertension Qualified Code(s): I10 - Essential (primary) hypertension CHF exacerbation Qualifiers: Heart failure type: unspecified Qualified Code(s): I50.9 - Heart failure, unspecified Anemia Qualifiers: Anemia type: unspecified type Qualified Code(s): D64.9 - Anemia, unspecified Disposition: DC09 OP ADMIT IP TO THIS HOSP Is pt being admited?: Yes Does the pt Need Aspirin: No Condition: Critical Time of Disposition: 18:29
[2019-04-09] MEDS ORDERED: DUONEB *Not for PRN Use IH ONE (16:21)
[2019-04-09] MEDS ORDERED: LASIX IV ONE (16:21)
[2019-04-09] MEDS ORDERED: APRESOLINE IV ONE (16:21)
[2019-04-09] MEDS ORDERED: MAXIPIME/NS 2 GM/100 ML 2 GM/100 ML BAG IV ONE (16:22)
[2019-04-09] MEDS ORDERED: SOLU-Medrol IV ONE (16:22)
[2019-04-09] MEDS ORDERED: ASPIRIN PO ONE (17:05)
[2019-04-09] MEDS ORDERED: TRIDIL DRIP 50MG/250ML 50 MG/250 ML BOTTLE IV ONE (17:47)
[2019-04-09] MEDS ORDERED: MAGNESIUM SULFATE 1 GM in NACL 0.9% 50 ML IV ONE (18:00)
--- NOTE | 2019-04-09 19:31 | History and Physical Report ---
History of Present Illness Chief complaint: I cant breathe History of present illness: 58 YO Male with HTN, HLD, Seizure disorder, OA , Nicotine Dependence Systolic CHF(EF 40%) presents to ED for evaluation. Pt states that he has experienced shortness of breath over the past 2 days with worsening symptoms over the same time frame. Pt acknowledges 12bs weight gain, Orthopnea,PND, decreased exercise tolerance, dypsnea on exertion, dypsnea at rest. Pt states that he "feels like lungs are filled with fluid". Pt acknowledges noncompliance with medication, as well as noncompliance with cardiac diet. Pt transported to [facility] via private vehicle. Pt seen and evaluated in ED and found to have CHF Decompensation, Acute Renal Failure, as well as Acute Respiratory Failure. Pt admitted to ICU and treated with supportive care. Cardiology consulted in ED. Nephrology consulted. Pt denies fever, chills, CP, Palpitations, NVD, Trauma, BRBPR, Productive cough, skin rash, prolonged travel/immobility, unilateral leg swelling, calf pain, individual/family history of DVT/PE/Bleeding, Blood Clotting Disorders, or known ill contacts. Pt found to have UDS positive for cocaine. Prior admission on 07/30/17 reviewed. All listed medication reconciled at time of admission. Past History Past Medical History: arthritis, hypertension, seizures Past Surgical History: No surgical history, Other (reviewed) Social history: , smoking Family history: hypertension Medications and Allergies Allergies Allergy/AdvReac Type Severity Reaction Status Date / Time No Known Allergies Allergy Verified 04/09/19 13:12 Home Medications Medication Instructions Recorded Confirmed Last Taken Type Aspirin [Aspirin BABY CHEW TAB] 81 mg PO QDAY #30 tab.chew 11/22/17 Unknown Rx Carvedilol [Coreg] 25 mg PO BID #30 tablet 11/22/17 Unknown Rx Pravastatin Sodium [Pravastatin] 20 mg PO QHS #60 tablet 11/22/17 Unknown Rx amLODIPine [Norvasc] 10 mg PO QDAY #30 tablet 11/22/17 Unknown Rx levETIRAcetam [Keppra TAB] 750 mg PO BID #60 tablet 11/22/17 Unknown Rx Active Meds: Active Medications Nitroglycerin/Dextrose (Tridil Drip 50mg/250ml) 50 mg in 250 mls @ 3 mls/hr IV TITR ONE; Protocol Stop: 04/13/19 05:06 Last Titration: 04/09/19 19:05 Dose: 20 mcg/min, 6 mls/hr Documented by: Review of Systems Constitutional: weight gain, no weight loss, no fever, no chills Ears, nose, mouth and throat: no ear pain, no ear discharge, no tinnitis, no decreased hearing, no nose pain, no nasal congestion, no nasal discharge Cardiovascular: orthopnea, shortness of breath, dyspnea on exertion, paroxysmal nocturnal dyspnea, decreased exercise tolerance, no palpitations, no rapid/irregular heart beat, no edema Respiratory: no cough, no cough with sputum, no excessive sputum, no shortness of breath Gastrointestinal: no abdominal pain, no nausea, no vomiting, no constipation, no change in bowel habits Genitourinary Male: no hematuria, no flank pain, no discharge, no nocturia, no incontinence Rectal: no pain, no incontinence Musculoskeletal: no neck stiffness, no neck pain, no shooting arm pain, no arm numbness/tingling, no low back pain Integumentary: no rash, no pruritis, no sores, no wounds Neurological: no head injury, no transient paralysis, no weakness, no parathesias, no numbness, no tingling Psychiatric: no anxiety, no memory loss, no insomnia, no change in libido, no disorientation Endocrine: no cold intolerance, no excessive thirst, no polydipsia, no polyuria, no excessive sweating Hematologic/Lymphatic: no easy bruising, no easy bleeding, no lymphadenopathy, no lymphedema Allergic/Immunologic: no urticaria, no allergic rhinitis, no wheezing, no persistent infections, no anaphylaxis, no angioedema Exam - Constitutional Vitals: Temp Pulse Resp BP Pulse Ox 98.4 F 100 H 20 181/115 98 04/09/19 13:34 04/09/19 19:00 04/09/19 19:00 04/09/19 19:00 04/09/19 19:00 General appearance: Present: mild distress - EENT Eyes: Present: PERRL ENT: hearing intact, clear oral mucosa - Neck Neck: Present: supple, normal ROM - Respiratory Respiratory: bilateral: diminished, rhonchi - Cardiovascular Heart Sounds: Present: S1 & S2. Absent: rub, click - Extremities Extremities: pulses symmetrical Extremity abnormal: edema Peripheral Pulses: within normal limits - Abdominal General gastrointestinal: Present: soft, non-tender, non-distended, normal bowel sounds Male genitourinary: Present: normal - Integumentary Integumentary: Present: clear, warm, dry - Musculoskeletal Musculoskeletal: generalized weakness - Psychiatric Psychiatric: appropriate mood/affect, intact judgment & insight - Neurologic Neurologic: CNII-XII intact, moves all extremities Results - Labs CBC & Chem 7: 04/09/19 13:41 04/09/19 13:41 Labs: Abnormal lab results 04/09/19 04/09/19 Range/Units 13:41 13:41 RBC 3.31 L (3.65-5.03) M/mm3 Hgb 10.8 L (11.8-15.2) gm/dl Hct 32.6 L (35.5-45.6) % MCV 99 H (84-94) fl MCH 33 H (28-32) pg RDW 16.8 H (13.2-15.2) % Lymph # 1.1 L (1.2-5.4) K/mm3 Seg Neutrophils % 72.2 H (40.0-70.0) % Potassium 5.8 H (3.6-5.0) mmol/L Chloride 110.1 H (98-107) mmol/L BUN 41 H (9-20) mg/dL Creatinine 3.3 H (0.8-1.5) mg/dL Alkaline Phosphatase 138 H (35-129) units/L Troponin T 0.036 H (0.00-0.029) ng/mL NT-Pro-B Natriuret Pep 79914 H (0-900) pg/mL Albumin 3.5 L (3.9-5) g/dL Assessment and Plan - Patient Problems (1) CHF exacerbation Current Visit: Yes Status: Acute Qualifiers: Heart failure type: systolic Qualified Code(s): I50.23 - Acute on chronic systolic (congestive) heart failure Plan to address problem: Admit to ICU, Cardiology consulted in ED, strict I/O, daily weight, diuresis, afterload reduction, bnp, pulse oximetry, chest x ray, The high probability of a clinically significant, sudden or life threatening deterioration of the [cardiac, respiratory,renal] system(s) required my full and direct attention, intervention and personal management. The aggregate critical care time was [65] minutes. This time is in addition to time spent performing reported procedures but includes the following: [x] Data Review and interpretation [x] Patient assessment and monitoring of vital signs [x] Documentation [x] Medication orders and management (2) ARF (acute renal failure) with tubular necrosis Current Visit: Yes Status: Acute Plan to address problem: Nephrology consulted, supportive care, avoid nephrotoxic agents, (3) Seizure Current Visit: Yes Status: Acute Plan to address problem: Continue Keppra, supportive care. (4) Nicotine dependence unspecified, with withdrawal Current Visit: Yes Status: Acute Qualifiers: Nicotine product type: cigarettes Qualified Code(s): F17.213 - Nicotine dependence, cigarettes, with withdrawal Plan to address problem: Smoking cessation counseling, +15 min, supportive care. (5) HTN (hypertension) Current Visit: Yes Status: Acute Qualifiers: Hypertension type: essential hypertension Qualified Code(s): I10 - Essential (primary) hypertension Plan to address problem: monitor bp q shift, supportive care, (6) Respiratory failure Current Visit: Yes Status: Acute Qualifiers: Chronicity: acute Respiratory failure complication: hypoxia Qualified Code(s): J96.01 - Acute respiratory failure with hypoxia Plan to address problem: Supplemental oxygen, nebulizer therapy, NIPPV as clinically indicated, chest x ray, pulse oximetry. (7) DVT prophylaxis Current Visit: Yes Status: Acute Plan to address problem: SCD to BLE while in bed, prophylactic heparin
[2019-04-09 20:08] LABS: Free T4 (Free Thyroxine) 1.25 ng/dL (0.76-1.46)
[2019-04-09] MEDS ORDERED: PERCOCET 5/325 PO PRN (20:13)
[2019-04-09] MEDS ORDERED: SODIUM CHLORIDE FLUSH SYRINGE 10 ML IV PRN (20:13)
[2019-04-09] MEDS ORDERED: PROVENTIL IH PRN (20:13)
[2019-04-09] MEDS ORDERED: MORPHINE IV PRN (20:13)
[2019-04-09] MEDS ORDERED: ZOFRAN IV PRN (20:13)
[2019-04-09] MEDS ORDERED: TYLENOL PO PRN (20:13)
[2019-04-09] MEDS: COREG PO SCH (23:14)
[2019-04-09] MEDS ORDERED: COREG ONE (23:15)
[2019-04-09] MEDS: SODIUM CHLORIDE FLUSH SYRINGE 10 ML IV SCH (23:45)
[2019-04-09] MEDS: PRAVACHOL PO SCH (23:46)
[2019-04-09] MEDS: KEPPRA PO SCH (23:59)
[2019-04-10 01:30] LABS: Amphetamine Screen,Urine PRESUMPTIVE NEGATIVE; Benzodiazepines Screen,Urine PRESUMPTIVE NEGATIVE; Cannabinoid Screen,Urine PRESUMPTIVE NEGATIVE; Methadone Screen,Urine PRESUMPTIVE NEGATIVE; Opiate Screen,Urine PRESUMPTIVE NEGATIVE
[2019-04-10 02:01] LABS: Cocaine Screen,Urine PRESUMPTIVE POSITIVE
[2019-04-10] MEDS: KEPPRA PO SCH ×2 (09:19→22:32)
[2019-04-10] MEDS: NORVASC PO SCH (09:20)
[2019-04-10] MEDS: COREG PO SCH ×2 (09:20→22:33)
[2019-04-10] MEDS: BABY ASPIRIN PO SCH (09:21)
[2019-04-10] MEDS: HEPARIN SUB-Q SCH ×2 (09:22→22:32)
[2019-04-10] MEDS ORDERED: LASIX PO SCH (10:00)
--- NOTE | 2019-04-10 10:48 | Progress Note ---
Assessment and Plan / Acute on chronic CHFrEF exacerbation Admited to ICU, Cardiology consulted in ED, cont strict I/O, daily weight, diuresis, pulse oximetry, Follow repeat echo result / ARF (acute renal failure) with tubular necrosis with possible underlyingCKD Nephrology consulted, monitor renal function, avoid nephrotoxic agents, / Seizure disorder Continue Keppra, seizure precaution. /To workup her use Smoking cessation counseling done, nicotine patch as needed /Malignant HTN (hypertension) BP was 211/143 on admission, status post NTG drip monitor bp q shift, supportive care, adjust BP meds as needed As needed hydralazine /Acute hypoxic Respiratory failure Due to CHF exacerbation, now resolved Continue IV diuresis, Supplemental oxygen, nebulizer therapy and NIPPV as clinically indicated, . / Cocaine abuse, counselled to stop / DVT prophylaxis SCD to BLE while in bed, prophylactic heparin Physical exam: GENERAL: well-developed and well-nourished -[place] male lying on bed appeared to be in no discomfort. HEENT: Normocephalic. Atraumatic. No conjunctival congestion or icterus. [place] ent has moist mucous membranes. NECK: Supple. Trachea midline. CHEST/LUNGS: positive for bibasilar crackles auscultated bilaterally, breathing nonlabored. No wheezes or rhonchi. HEART/CARDIOVASCULAR: Regular in rate and rhythm. S1 and S2 positive. ABDOMEN: Abdomen is soft, nontender. Patient has normal bowel sounds. SKIN: There is no rash. Warm and dry. NEURO: No focal motor deficit. Follows command. MUSCULOSKELETAL: No joint effusion or tenderness. EXTRIMITY: No edema, no cyanosis or clubbing. PSYCH: Cooperative. Subjective Date of service: 04/10/19 Interval history: Patient seen and examined. Medical records and medication list reviewed. No acute event overnight noted by the RN. Patient denies any chest pain and denies difficulty breathing. Patient is off NTG drip Patient is tolerating diet. Discussed plan of care at bedside with patient. Transfer to telemetry today Objective - Constitutional Vitals: Vital Signs - 12hr 04/09/19 04/09/19 04/09/19 23:00 23:14 23:50 Temperature 98.3 F Pulse Rate 81 104 H Pulse Rate [ From Monitor] Respiratory 14 Rate Blood Pressure 187/120 187/120 O2 Sat by Pulse 97 Oximetry 04/10/19 04/10/1919 00:34 00:51 01:00 Temperature Pulse Rate 76 77 Pulse Rate [ 75 From Monitor] Respiratory 24 15 Rate Blood Pressure 143/92 143/92 O2 Sat by Pulse 99 100 99 Oximetry 04/10/19 04/10/19 04/10/19 01:11 01:15 01:21 Temperature Pulse Rate 78 75 Pulse Rate [ From Monitor] Respiratory 17 18 Rate Blood Pressure 136/86 142/92 O2 Sat by Pulse 100 99 98 Oximetry 04/10/19 04/10/19 04/10/19 01:30 01:41 01:51 Temperature Pulse Rate 74 80 64 Pulse Rate [ From Monitor] Respiratory 15 18 16 Rate Blood Pressure 151/92 151/92 150/98 O2 Sat by Pulse 95 99 93 Oximetry 04/10/19 04/10/19 04/10/19 02:00 02:11 02:21 Temperature Pulse Rate 69 69 71 Pulse Rate [ From Monitor] Respiratory 17 16 21 Rate Blood Pressure 144/96 144/96 147/102 O2 Sat by Pulse 93 94 98 Oximetry 04/10/19 04/10/19 04/10/19 02:30 02:41 02:51 Temperature Pulse Rate 67 72 74 Pulse Rate [ From Monitor] Respiratory 15 15 14 Rate Blood Pressure 155/107 155/107 140/92 O2 Sat by Pulse 96 98 98 Oximetry 04/10/19 04/10/19 04/10/19 03:00 03:06 03:11 Temperature 97.9 F Pulse Rate 76 71 Pulse Rate [ From Monitor] Respiratory 15 19 Rate Blood Pressure 129/86 129/86 O2 Sat by Pulse 94 95 Oximetry 04/10/19 04/10/19 04/10/19 03:21 03:30 03:41 Temperature Pulse Rate 53 L 60 Pulse Rate [ From Monitor] Respiratory 16 14 Rate Blood Pressure 158/92 154/95 154/95 O2 Sat by Pulse 99 97 100 Oximetry 04/10/19 04/10/19 04/10/19 03:51 04:00 04:11 Temperature Pulse Rate 78 Pulse Rate [ From Monitor] Respiratory 26 H Rate Blood Pressure 157/95 159/96 159/96 O2 Sat by Pulse 96 93 98 Oximetry 04/10/19 04/10/19 04/10/19 04:21 04:30 04:41 Temperature Pulse Rate 73 71 76 Pulse Rate [ From Monitor] Respiratory 16 14 15 Rate Blood Pressure 140/95 131/79 159/96 O2 Sat by Pulse 100 96 98 Oximetry 04/10/19 04/10/19 04/10/19 04:46 04:51 05:01 Temperature Pulse Rate 73 78 77 Pulse Rate [ From Monitor] Respiratory 12 16 Rate Blood Pressure 137/82 142/100 O2 Sat by Pulse 98 98 Oximetry 04/10/19 04/10/19 04/10/19 05:11 05:21 05:30 Temperature Pulse Rate 58 L 55 L 55 L Pulse Rate [ From Monitor] Respiratory 19 18 15 Rate Blood Pressure 131/79 143/94 143/85 O2 Sat by Pulse 99 99 96 Oximetry 04/10/19 04/10/19 04/10/19 05:41 05:51 06:00 Temperature Pulse Rate 56 L 86 66 Pulse Rate [ From Monitor] Respiratory 16 16 16 Rate Blood Pressure 143/94 146/87 147/95 O2 Sat by Pulse 96 100 95 Oximetry 04/10/19 04/10/19 04/10/19 06:11 06:21 06:30 Temperature Pulse Rate 76 72 61 Pulse Rate [ From Monitor] Respiratory 15 12 14 Rate Blood Pressure 143/85 139/89 143/84 O2 Sat by Pulse 98 100 98 Oximetry 04/10/19 04/10/19 04/10/19 06:41 06:51 07:00 Temperature Pulse Rate 65 47 L 49 L Pulse Rate [ From Monitor] Respiratory 16 25 H 13 Rate Blood Pressure 143/84 143/84 157/94 O2 Sat by Pulse 98 100 98 Oximetry 04/10/19 04/10/19 04/10/19 07:11 07:21 07:31 Temperature Pulse Rate 73 55 L 75 Pulse Rate [ From Monitor] Respiratory 19 18 16 Rate Blood Pressure 157/94 157/98 161/106 O2 Sat by Pulse 100 100 97 Oximetry 04/10/19 04/10/19 04/10/19 07:41 07:51 07:52 Temperature Pulse Rate 51 L 84 Pulse Rate [ From Monitor] Respiratory 19 16 Rate Blood Pressure 161/106 154/89 O2 Sat by Pulse 100 100 99 Oximetry 04/10/19 04/10/19 04/10/19 08:00 08:11 08:21 Temperature 97.5 F L Pulse Rate 68 63 55 L Pulse Rate [ From Monitor] Respiratory 14 20 15 Rate Blood Pressure 143/95 161/106 146/89 O2 Sat by Pulse 98 99 100 Oximetry 04/10/19 04/10/19 04/10/19 08:31 08:41 08:46 Temperature Pulse Rate 54 L 82 Pulse Rate [ 81 From Monitor] Respiratory 13 21 15 Rate Blood Pressure 146/103 146/103 O2 Sat by Pulse 98 100 100 Oximetry 04/10/19 04/10/19 04/10/19 08:51 09:00 09:11 Temperature Pulse Rate 84 82 73 Pulse Rate [ From Monitor] Respiratory 20 13 16 Rate Blood Pressure 151/98 144/103 146/103 O2 Sat by Pulse 99 99 100 Oximetry 04/10/19 04/10/19 04/10/19 09:20 09:21 09:30 Temperature Pulse Rate 70 79 78 Pulse Rate [ From Monitor] Respiratory 16 22 Rate Blood Pressure 139/100 139/100 157/113 O2 Sat by Pulse 100 97 Oximetry 04/10/19 04/10/19 04/10/19 09:41 09:51 10:00 Temperature Pulse Rate 76 73 71 Pulse Rate [ From Monitor] Respiratory 21 15 14 Rate Blood Pressure 139/100 159/101 141/87 O2 Sat by Pulse 100 97 98 Oximetry 04/10/19 04/10/19 04/10/19 10:11 10:21 10:30 Temperature Pulse Rate 84 82 77 Pulse Rate [ From Monitor] Respiratory 13 17 15 Rate Blood Pressure 157/113 134/87 146/90 O2 Sat by Pulse 99 99 97 Oximetry - Labs CBC & Chem 7: 04/11/19 05:22 04/11/19 05:22 Labs: Abnormal lab results 04/09/19 04/09/19 04/10/19 Range/Units 13:41 13:41 04:09 RBC 3.31 L (3.65-5.03) M/mm3 Hgb 10.8 L (11.8-15.2) gm/dl Hct 32.6 L (35.5-45.6) % MCV 99 H (84-94) fl MCH 33 H (28-32) pg RDW 16.8 H (13.2-15.2) % Lymph # 1.1 L (1.2-5.4) K/mm3 Seg Neutrophils % 72.2 H (40.0-70.0) % Potassium 5.8 H (3.6-5.0) mmol/L Chloride 110.1 H (98-107) mmol/L BUN 41 H (9-20) mg/dL Creatinine 3.3 H (0.8-1.5) mg/dL Alkaline Phosphatase 138 H (35-129) units/L Troponin T 0.036 H 0.037 H (0.00-0.029) ng/mL NT-Pro-B Natriuret Pep 65413 H (0-900) pg/mL Albumin 3.5 L (3.9-5) g/dL 04/10/19 Range/Units 06:18 RBC (3.65-5.03) M/mm3 Hgb (11.8-15.2) gm/dl Hct (35.5-45.6) % MCV (84-94) fl MCH (28-32) pg RDW (13.2-15.2) % Lymph # (1.2-5.4) K/mm3 Seg Neutrophils % (40.0-70.0) % Potassium (3.6-5.0) mmol/L Chloride (98-107) mmol/L BUN (9-20) mg/dL Creatinine (0.8-1.5) mg/dL Alkaline Phosphatase (35-129) units/L Troponin T 0.034 H (0.00-0.029) ng/mL NT-Pro-B Natriuret Pep (0-900) pg/mL Albumin (3.9-5) g/dL
--- NOTE | 2019-04-10 11:17 | Consultation ---
History of Present Illness Consult date: 04/10/19 Consult reason: congestive heart failure History of present illness: 58 YO Male with HTN, HL, Seizure disorder, OA , Nicotine Dependence, Non isch emic cardiomyopathy (EF 40%) presents to ED for evaluation. Pt states that he has experienced shortness of breath over the past 2 days with worsening symptoms over the same time frame. Pt acknowledges 12bs weight gain, Orthopnea, PND, decreased exercise tolerance, dypsnea on exertion, dypsnea at rest. Pt states that he "feels like lungs are filled with fluid". Pt acknowledges noncompliance with medication, as well as noncompliance with cardiac follow up. His BNP is markedly elevated consistent with decompensated CHF. His UDS is positive for cocaine. He admits to using cocaine several times a week with last use 2-3 days ago. Past History Past Medical History: arthritis, hypertension, seizures Past Surgical History: No surgical history, Other (reviewed) Social history: , smoking Family history: hypertension Medications and Allergies Allergies Allergy/AdvReac Type Severity Reaction Status Date / Time No Known Allergies Allergy Verified 04/09/19 13:12 Home Medications Medication Instructions Recorded Confirmed Last Taken Type Aspirin [Aspirin BABY CHEW TAB] 81 mg PO QDAY #30 tab.chew 11/22/17 Unknown Rx Carvedilol [Coreg] 25 mg PO BID #30 tablet 11/22/17 Unknown Rx Pravastatin Sodium [Pravastatin] 20 mg PO QHS #60 tablet 11/22/17 Unknown Rx amLODIPine [Norvasc] 10 mg PO QDAY #30 tablet 11/22/17 Unknown Rx levETIRAcetam [Keppra TAB] 750 mg PO BID #60 tablet 11/22/17 Unknown Rx Active Meds: Active Medications Acetaminophen (Tylenol) 650 mg PO Q4H PRN PRN Reason: Pain MILD(1-3)/Fever >100.5/TORIBIO Albuterol (Proventil) 2.5 mg IH Q4HRT PRN PRN Reason: Shortness Of Breath Amlodipine Besylate (Norvasc) 10 mg PO QDAY [facility] Last Admin: 04/10/19 09:20 Dose: 10 mg Documented by: Aspirin (Baby Aspirin) 81 mg PO QDAY [facility] Last Admin: 04/10/19 09:21 Dose: 81 mg Documented by: Carvedilol (Coreg) 25 mg PO BID [facility] Last Admin: 04/10/19 09:20 Dose: 25 mg Documented by: Furosemide (Lasix) 40 mg IV 0600,1800 [facility] Heparin Sodium (Porcine) (Heparin) 5,000 unit SUB-Q Q12HR [facility] Last Admin: 04/10/19 09:22 Dose: 5,000 unit Documented by: Nitroglycerin/Dextrose (Tridil Drip 50mg/250ml) 50 mg in 250 mls @ 3 mls/hr IV TITR ONE; Protocol Stop: 04/13/19 05:06 Last Titration: 04/10/19 10:35 Dose: 0 mcg/min, 0 mls/hr Documented by: Levetiracetam (Keppra) 750 mg PO BID [facility] Last Admin: 04/10/19 09:19 Dose: 750 mg Documented by: Morphine Sulfate (Morphine) 2 mg IV Q4H PRN PRN Reason: Pain, Moderate (4-6) Ondansetron HCl (Zofran) 4 mg IV Q8H PRN PRN Reason: Nausea And Vomiting Oxycodone/Acetaminophen (Percocet 5/325) 1 tab PO Q6H PRN PRN Reason: Pain, Moderate (4-6) Last Admin: 04/09/19 23:59 Dose: 1 tab Documented by: Pravastatin Sodium (Pravachol) 20 mg PO QHS [facility] Last Admin: 04/09/19 23:46 Dose: 20 mg Documented by: Sodium Chloride (Sodium Chloride Flush Syringe 10 Ml) 10 ml IV BID [facility] Last Admin: 04/09/19 23:45 Dose: 10 ml Documented by: Sodium Chloride (Sodium Chloride Flush Syringe 10 Ml) 10 ml IV PRN PRN PRN Reason: LINE FLUSH Review of Systems All systems: negative (per hpi) Physical Examination Vital Signs Temp Pulse Resp BP Pulse Ox 98.4 F 98 H 18 199/139 100 04/09/19 13:34 04/09/19 13:34 04/09/19 13:34 04/09/19 13:34 04/09/19 13:34 General appearance: no acute distress HEENT: Positive: PERRL Cardiac: Positive: Reg Rate and Rhythm, Systolic Murmur Lungs: Positive: Decreased Breath Sounds, Rales Abdomen: Positive: Soft, Active Bowel Sounds Extremities: Present: +2 Edema Results 04/09/19 13:41 04/09/19 13:41 Cardiac Enzymes 04/09/19 Range/Units 13:41 AST 23 (5-40) units/L Lipids 04/09/19 Range/Units 13:41 Triglycerides 64 (2-149) mg/dL Cholesterol 141 (50-199) mg/dL HDL Cholesterol 59 (40-59) mg/dL Cholesterol/HDL Ratio 2.38 % CBC 04/09/19 Range/Units 13:41 WBC 6.5 (4.5-11.0) K/mm3 RBC 3.31 L (3.65-5.03) M/mm3 Hgb 10.8 L (11.8-15.2) gm/dl Hct 32.6 L (35.5-45.6) % Plt Count 235 (140-440) K/mm3 Lymph # 1.1 L (1.2-5.4) K/mm3 [place] # 0.5 (0.0-0.8) K/mm3 Eos # 0.1 (0.0-0.4) K/mm3 Baso # 0.1 (0.0-0.1) K/mm3 Comprehensive Metabolic Panel 04/09/19 Range/Units 13:41 Sodium 143 (137-145) mmol/L Potassium 5.8 H (3.6-5.0) mmol/L Chloride 110.1 H (98-107) mmol/L Carbon Dioxide 24 (22-30) mmol/L BUN 41 H (9-20) mg/dL Creatinine 3.3 H (0.8-1.5) mg/dL Glucose 97 (75-100) mg/dL Calcium 9.1 (8.4-10.2) mg/dL AST 23 (5-40) units/L ALT 21 (7-56) units/L Alkaline Phosphatase 138 H (35-129) units/L Total Protein 6.7 (6.3-8.2) g/dL Albumin 3.5 L (3.9-5) g/dL Assessment and Plan Acute on chronic systolic heart failure Non Ischemic cardiomyopathy Acute on CKD Htn Tobacco and cocaine abuse Noncompliance Recommend: Continue aggressive diuresis Repeat echocardiogram Nephrology evaluation Extensively counseled patient to stop cocaine use - he reports he will stop now.
--- NOTE | 2019-04-10 13:24 | Consultation ---
History of Present Illness - Reason for Consult Consult date: 04/10/19 acute renal failure, chronic renal failure - History of Present Illness This is a 58 y/o M with PMH of HTN, seizure disorder, nicotine dependence, systolic CHF, hyperlipidemia, and osteoarthritis who presented to [facility] ED with c/o worsening shortness of breath, SPANGLER, fatigue, weight gain (12 lbs), generalized weakness, decreased activity tolerance, urinary hesistancy, difficulty starting urine with feeling of incomplete emptying. Pt reported being non-compliant with his medications and cardiac diet. Pt states he doesn't check his BP at home. Pt denies any hx of kidney problems to his knowledge, states he takes NSIAD medications such as motrin/aleve every "blue walker". Pt denies taking diuretics at home. Pt admitted to ICU, started on IV lasix. On admission, SCr level was 3.3, labs pending today. Pt also found to have UDS + for cocaine. BNP was 27,264 on admission. We were consulted to evaluate this pt who has HUNTER. Cardiology consulted for CHF. Pt seen in ICU bed, no acute distress, no family at bedside Past History Past Medical History: arthritis, hypertension, seizures Past Surgical History: No surgical history, Other (reviewed) Social history: , smoking Family history: hypertension Medications and Allergies Allergies Allergy/AdvReac Type Severity Reaction Status Date / Time No Known Allergies Allergy Verified 04/09/19 13:12 Home Medications Medication Instructions Recorded Confirmed Last Taken Type Aspirin [Aspirin BABY CHEW TAB] 81 mg PO QDAY #30 tab.chew 11/22/17 Unknown Rx Carvedilol [Coreg] 25 mg PO BID #30 tablet 11/22/17 Unknown Rx Pravastatin Sodium [Pravastatin] 20 mg PO QHS #60 tablet 11/22/17 Unknown Rx amLODIPine [Norvasc] 10 mg PO QDAY #30 tablet 11/22/17 Unknown Rx levETIRAcetam [Keppra TAB] 750 mg PO BID #60 tablet 11/22/17 Unknown Rx Active Meds: Active Medications Acetaminophen (Tylenol) 650 mg PO Q4H PRN PRN Reason: Pain MILD(1-3)/Fever >100.5/TORIBIO Albuterol (Proventil) 2.5 mg IH Q4HRT PRN PRN Reason: Shortness Of Breath Amlodipine Besylate (Norvasc) 10 mg PO QDAY [facility] Last Admin: 04/10/19 09:20 Dose: 10 mg Documented by: Aspirin (Baby Aspirin) 81 mg PO QDAY [facility] Last Admin: 04/10/19 09:21 Dose: 81 mg Documented by: Carvedilol (Coreg) 25 mg PO BID [facility] Last Admin: 04/10/19 09:20 Dose: 25 mg Documented by: Furosemide (Lasix) 40 mg IV 0600,1800 [facility] Heparin Sodium (Porcine) (Heparin) 5,000 unit SUB-Q Q12HR [facility] Last Admin: 04/10/19 09:22 Dose: 5,000 unit Documented by: Nitroglycerin/Dextrose (Tridil Drip 50mg/250ml) 50 mg in 250 mls @ 3 mls/hr IV TITR ONE; Protocol Stop: 04/13/19 05:06 Last Titration: 04/10/19 10:35 Dose: 0 mcg/min, 0 mls/hr Documented by: Levetiracetam (Keppra) 750 mg PO BID [facility] Last Admin: 04/10/19 09:19 Dose: 750 mg Documented by: Morphine Sulfate (Morphine) 2 mg IV Q4H PRN PRN Reason: Pain, Moderate (4-6) Ondansetron HCl (Zofran) 4 mg IV Q8H PRN PRN Reason: Nausea And Vomiting Oxycodone/Acetaminophen (Percocet 5/325) 1 tab PO Q6H PRN PRN Reason: Pain, Moderate (4-6) Last Admin: 04/09/19 23:59 Dose: 1 tab Documented by: Pravastatin Sodium (Pravachol) 20 mg PO QHS [facility] Last Admin: 04/09/19 23:46 Dose: 20 mg Documented by: Sodium Chloride (Sodium Chloride Flush Syringe 10 Ml) 10 ml IV BID [facility] Last Admin: 04/09/19 23:45 Dose: 10 ml Documented by: Sodium Chloride (Sodium Chloride Flush Syringe 10 Ml) 10 ml IV PRN PRN PRN Reason: LINE FLUSH Review of Systems Constitutional: weight gain, fatigue, weakness Cardiovascular: edema, shortness of breath, dyspnea on exertion, no chest pain Respiratory: shortness of breath, dyspnea on exertion Gastrointestinal: no nausea, no vomiting, no diarrhea, no constipation, no hematemesis Genitourinary Male: urinary frequency, urinary hesitancy, incontinence (feeling of incomplete emptying, difficulty starting urine output), no dysuria Integumentary: no sores, no wounds Neurological: weakness, seizures (hx of seizures), no change in speech Psychiatric: no anxiety, no depression Endocrine: fatigue Exam - Vital Signs Vital signs: Vital Signs Temp Pulse Resp BP Pulse Ox 98.4 F 98 H 18 199/139 100 04/09/19 13:34 04/09/19 13:34 04/09/19 13:34 04/09/19 13:34 04/09/19 13:34 - General Appearance General appearance: well-developed EENT: ATNC Neck: Present: neck supple Respiratory: Decreased Breath Sounds Heart: regular, S1S2 Gastrointestinal: Present: normoactive bowel sounds. Absent: tenderness Integumentary: warm and dry Neurologic: alert and oriented x3 Musculoskeletal: Present: other (trace edema to BLE) Psychiatric: cooperative Results - Lab Results 04/09/19 13:41 04/10/19 13:16 Most recent lab results Calcium 9.1 mg/dL (8.4-10.2) 04/09/19 13:41 Magnesium 1.80 mg/dL (1.7-2.3) 04/09/19 20:33 Assessment and Plan Acute on chronic systolic CHF: Acute Kidney Injury possibly prerenal, cardiorenal syndrome, ? urinary retention, on underlying CKD likely due to HTN Tobacco and cocaine abuse: Essential Hypertension Non-ischemic Cardiomyopathy: Plan: - Renal function reviewed, SCr level was 4.5 today, yesterday's SCr level was 3.3 - On admission, SCr level was 3.3, exact SCr baseline unknown - Possible HUNTER on CKD, underlying CKD possibly due to HTN, pt could also have progression of underlying CKD due to uncontrolled HTN - Started on Lasix 40 mg IV BID, if renal function continues to worsen, will need to adjust lasix regimen - Obtain urine lytes/protein studies - Check Renal US with postvoid residual - May benefit from Flomax - Adjust BP medications as needed, likely has volume component contributing toward elevated BP, started on IV lasix - Cardiology on board, repeat Echo, f/u recs - Renally dose meds - Strict intake and output - White Catheter: No - Renal plan d/w Dr Bettencourt
[2019-04-10 14:08] LABS: Calcium 8.5 mg/dL (8.4-10.2)
[2019-04-10 16:55] LABS: Hematocrit 30.5 % (35.5-45.6); Hemoglobin 10.4 gm/dl (11.8-15.2); Mean Corpuscular HGB Conc 34 % (32-34); Mean Corpuscular Volume 98 fl (84-94); Platelet Count 212 K/mm3 (140-440); Red Blood Count 3.11 M/mm3 (3.65-5.03); Red Cell Distribution Width 16.4 % (13.2-15.2)
[2019-04-10 17:11] LABS: Calcium 8.5 mg/dL (8.4-10.2)
[2019-04-10] MEDS: LASIX IV SCH (18:37)
[2019-04-10 19:16] LABS: Creatinine,Urine 134.8 mg/dL (0.1-20.0)
[2019-04-10 19:21] LABS: Microalbumin/Creatinine Ratio 552.6 ug/mg
--- NOTE | 2019-04-10 19:26 | Ultrasound Report ---
Renal ultrasound with bladder residual INDICATION: Acute renal failure FINDINGS: Both kidneys measure about 11 cm in length. No hydronephrosis. There was only 1 mL postvoid residual. IMPRESSION: No acute findings or hydronephrosis. No significant post void residual. Signer Name: Onesimo Gupta MD Signed: 04/10/2019 7:22 PM Workstation Name: [id number]
[2019-04-10] MEDS: PRAVACHOL PO SCH (22:32)
[2019-04-10] MEDS: SODIUM CHLORIDE FLUSH SYRINGE 10 ML IV SCH (22:32)
[2019-04-11] MEDS: LASIX IV SCH (05:21)
[2019-04-11 06:11] LABS: Basophils # (Auto) 0.1 K/mm3 (0.0-0.1); Basophils % (Auto) 0.8 % (0.0-1.8); Eosinophils # (Auto) 0.1 K/mm3 (0.0-0.4); Eosinophils % (Auto) 0.9 % (0.0-4.3); Hematocrit 31.6 % (35.5-45.6); Hemoglobin 10.6 gm/dl (11.8-15.2); Lymphocytes # (Auto) 1.8 K/mm3 (1.2-5.4); Lymphocytes % (Auto) 28.4 % (13.4-35.0); Mean Corpuscular HGB Conc 34 % (32-34); Mean Corpuscular Volume 99 fl (84-94); Monocytes # (Auto) 0.4 K/mm3 (0.0-0.8); Monocytes % (Auto) 5.6 % (0.0-7.3); Platelet Count 202 K/mm3 (140-440); Red Cell Distribution Width 16.6 % (13.2-15.2)
[2019-04-11 06:36] LABS: Calcium 7.9 mg/dL (8.4-10.2)
--- NOTE | 2019-04-11 06:38 | Progress Note ---
Assessment and Plan Acute on chronic systolic CHF: Acute Kidney Injury possibly prerenal, cardiorenal syndrome, ? AIN, on underlying CKD likely due to HTN Non-Anion Gap Metabolic Acidosis Tobacco and cocaine abuse: Essential Hypertension Non-ischemic Cardiomyopathy: COPD Plan: - Renal function reviewed, SCr level was 4.6 today, yesterday's SCr level was 4.6 - On admission, SCr level was 3.3, exact SCr baseline unknown - Possibly HUNTER on CKD, underlying CKD possibly due to HTN, pt could also have progression of underlying CKD due to uncontrolled HTN - CXR on 04/09/19 showed COPD, no acute cardiopulmonary process - Consider holding scheduled Lasix if ok with cardiology given worsening renal function - Calculated protein cr ratio ~ 0.8 g, urine eosinophils positive at 3, ? AIN, will obtain GN/vasculitis work up - Elevated PTH consistent with underlying CKD - Renal US showed no acute finding or hydronephrosis, no significant postvoid residual, only 1 ml postvoid residual - Checking daily labs, hold off on sodium bicarbonate supplementation for now, monitor - May benefit from Flomax - Adjust BP medications as needed - Cardiology on board, repeat Echo, f/u recs - Renally dose meds - Strict intake and output - White Catheter: No - Intake= 952 ml Ojghhc=9719 ml (Net= -147 ml) - Renal plan d/w Dr Bettencourt Subjective Date of service: 04/11/19 Interval history: Pt seen in bed, denies shortness of breath, no acute distress. No family at bedside Objective - Vital Signs Vital signs: Vital Signs - 12hr 04/10/19 04/10/19 04/10/19 19:10 20:35 22:07 Temperature Pulse Rate 79 86 Respiratory 18 Rate Blood Pressure 151/105 Blood Pressure [Left] O2 Sat by Pulse 99 97 Oximetry 04/10/19 04/10/19 04/10/19 22:09 22:12 22:33 Temperature 97.5 F L Pulse Rate 88 72 86 Respiratory 18 Rate Blood Pressure 143/99 151/105 Blood Pressure 143/99 [Left] O2 Sat by Pulse 98 Oximetry 04/11/19 04/11/19 04/11/19 00:19 00:38 00:39 Temperature 98.2 F Pulse Rate 79 77 Respiratory 18 Rate Blood Pressure 144/103 Blood Pressure [Left] O2 Sat by Pulse 96 Oximetry 04/11/19 04/11/19 04:02 04:04 Temperature 97.9 F Pulse Rate 77 Respiratory 18 Rate Blood Pressure 138/96 Blood Pressure [Left] O2 Sat by Pulse 95 Oximetry - General Appearance General appearance: well-developed EENT: ATNC Neck: no JVD Respiratory: Present: Decreased Breath Sounds Cardiology: regular, S1S2 Gastrointestinal: normoactive bowel sounds, no tenderness Integumentary: warm and dry Neurologic: alert and oriented x3 Musculoskeletal: other (trace edema to BLE) Psychiatric: cooperative - Lab 04/11/19 05:22 04/11/19 05:22 Most recent lab results Calcium 8.5 mg/dL (8.4-10.2) 04/10/19 16:25 Phosphorus 5.00 mg/dL (2.5-4.5) H 04/10/19 16:25 Magnesium 1.90 mg/dL (1.7-2.3) 04/10/19 16:25 134.8 mg/dL (0.1-20.0) H 04/10/19 18:15 34 mmol/L 04/10/19 18:15 117 mg/dL (5-11.8) H 04/10/19 18:15 Medications & Allergies - Medications Allergies/Adverse Reactions: Allergies No Known Allergies Allergy (Verified 04/09/19 13:12) Home Medications: Home Medications Medication Instructions Recorded Confirmed Last Taken Type Aspirin [Aspirin BABY CHEW TAB] 81 mg PO QDAY #30 tab.chew 11/22/17 04/10/19 04/10/19 Rx Carvedilol [Coreg] 25 mg PO BID #30 tablet 11/22/17 04/10/19 04/10/19 Rx Pravastatin Sodium [Pravastatin] 20 mg PO QHS #60 tablet 11/22/17 04/10/19 04/10/19 Rx amLODIPine [Norvasc] 10 mg PO QDAY #30 tablet 11/22/17 04/10/19 04/10/19 Rx levETIRAcetam [Keppra TAB] 750 mg PO BID #60 tablet 11/22/17 04/10/19 04/10/19 Rx Active Medications: Generic Name Dose Route Start Last Admin Trade Name Freq PRN Reason Stop Dose Admin Acetaminophen 650 mg 04/09/19 20:13 Tylenol PO Q4H PRN Pain MILD(1-3)/Fever >100.5/TORIBIO Albuterol 2.5 mg 04/09/19 20:13 Proventil IH Q4HRT PRN Shortness Of Breath Amlodipine Besylate 10 mg 04/10/19 10:00 04/10/19 09:20 Norvasc PO 10 mg QDAY WILL Administration Aspirin 81 mg 04/10/19 10:00 04/10/19 09:21 Baby Aspirin PO 81 mg QDAY WILL Administration Carvedilol 25 mg 04/09/19 22:00 04/10/19 22:33 Coreg PO 25 mg BID WILL Administration Furosemide 40 mg 04/10/19 18:00 04/11/19 05:21 Lasix IV 40 mg 0600,1800 WILL Administration Heparin Sodium (Porcine) 5,000 unit 04/10/19 10:00 04/10/19 22:32 Heparin SUB-Q 5,000 unit Q12HR WILL Administration Levetiracetam 750 mg 04/09/19 22:00 04/10/19 22:32 Keppra PO 750 mg BID WILL Administration Morphine Sulfate 2 mg 04/09/19 20:13 Morphine IV Q4H PRN Pain, Moderate (4-6) Ondansetron HCl 4 mg 04/09/19 20:13 Zofran IV Q8H PRN Nausea And Vomiting Oxycodone/Acetaminophen 1 tab 04/09/19 20:13 04/09/19 23:59 Percocet 5/325 PO 1 tab Q6H PRN Administration Pain, Moderate (4-6) Pravastatin Sodium 20 mg 04/09/19 22:00 04/10/19 22:32 Pravachol PO 20 mg QHS WILL Administration Sodium Chloride 10 ml 04/09/19 22:00 04/10/19 22:32 Sodium Chloride Flush Syringe 10 Ml IV 10 ml BID WILL Administration Sodium Chloride 10 ml 04/09/19 20:13 04/11/19 05:26 Sodium Chloride Flush Syringe 10 Ml IV 10 ml PRN PRN Administration LINE FLUSH
[2019-04-11] MEDS: NORVASC PO SCH (09:17)
[2019-04-11] MEDS: COREG PO SCH ×2 (09:17→22:25)
[2019-04-11] MEDS: BABY ASPIRIN PO SCH (09:17)
[2019-04-11] MEDS: KEPPRA PO SCH ×2 (09:18→22:25)
[2019-04-11] MEDS: HEPARIN SUB-Q SCH ×2 (09:19→22:25)
[2019-04-11 10:09] LABS: Hepatitis B Surface Antigen Non-Reactive (Negative); Hepatitis C Virus Antibody Non-Reactive (NonReactive)
[2019-04-11] MEDS: APRESOLINE PO SCH ×2 (13:51→22:27)
[2019-04-11] MEDS: SODIUM CHLORIDE FLUSH SYRINGE 10 ML IV SCH ×2 (13:52→22:26)
--- NOTE | 2019-04-11 14:01 | Progress Note ---
Assessment and Plan Acute on chronic systolic heart failure Non Ischemic cardiomyopathy Acute on CKD Htn Tobacco and cocaine abuse Noncompliance Recommend: Change to PO lasix Repeat echocardiogram Extensively counseled patient to stop cocaine use - he reports he will stop now. Subjective Date of service: 04/11/19 Interval history: No cardiac complaints Objective Vital Signs Temp Pulse Pulse Pulse Pulse Resp BP 04/11/19 13:51 62 122/62 04/11/19 12:27 69 68 68 20 04/11/19 11:52 98.4 F 62 20 122/70 04/11/19 09:17 69 167/113 04/11/19 08:59 98.6 F 69 20 167/113 04/11/19 04:04 97.9 F 04/11/19 04:02 77 18 138/96 04/11/19 00:39 98.2 F 04/11/19 00:38 77 18 144/103 04/11/19 00:19 79 04/10/19 22:33 86 151/105 04/10/19 22:12 72 04/10/19 22:09 97.5 F L 88 18 143/99 04/10/19 22:07 86 18 151/105 04/10/19 20:35 04/10/19 19:10 79 04/10/19 17:42 98.5 F 81 16 158/106 04/10/19 15:41 76 17 141/101 04/10/19 15:30 73 20 139/93 04/10/19 15:21 81 21 148/95 04/10/19 15:11 92 H 21 137/93 04/10/19 15:00 76 18 141/101 04/10/19 14:51 76 25 H 137/93 04/10/19 14:41 75 22 140/89 04/10/19 14:30 70 15 140/89 04/10/19 14:21 67 14 137/85 04/10/19 14:11 72 14 143/88 BP Pulse Ox 04/11/19 13:51 04/11/19 12:27 96 04/11/19 11:52 95 04/11/19 09:17 04/11/19 08:59 95 04/11/19 04:04 04/11/19 04:02 95 04/11/19 00:39 04/11/19 00:38 96 04/11/19 00:19 04/10/19 22:33 04/10/19 22:12 143/99 04/10/19 22:09 98 04/10/19 22:07 97 04/10/19 20:35 99 04/10/19 19:10 04/10/19 17:42 98 04/10/19 15:41 04/10/19 15:30 04/10/19 15:21 98 04/10/19 15:11 96 04/10/19 15:00 98 04/10/19 14:51 98 04/10/19 14:41 99 04/10/19 14:30 97 04/10/19 14:21 98 04/10/19 14:11 100 - Physical Examination HEENT: Positive: PERRL Neck: Positive: neck supple Cardiac: Positive: Reg Rate and Rhythm Lungs: Positive: clear to auscultation Abdomen: Positive: Soft, Active Bowel Sounds Extremities: Present: +1 Edema - Labs and Meds CBC 04/10/19 04/11/19 Range/Units 16:25 05:22 WBC 9.7 6.5 (4.5-11.0) K/mm3 RBC 3.11 L 3.20 L (3.65-5.03) M/mm3 Hgb 10.4 L 10.6 L (11.8-15.2) gm/dl Hct 30.5 L 31.6 L (35.5-45.6) % Plt Count 212 202 (140-440) K/mm3 Lymph # 1.8 (1.2-5.4) K/mm3 [place] # 0.4 (0.0-0.8) K/mm3 Eos # 0.1 (0.0-0.4) K/mm3 Baso # 0.1 (0.0-0.1) K/mm3 Comprehensive Metabolic Panel 04/10/19 04/10/19 04/11/19 Range/Units 13:16 16:25 05:22 Sodium 138 138 141 (137-145) mmol/L Potassium 4.9 4.9 4.4 (3.6-5.0) mmol/L Chloride 104.2 102.8 108.0 H (98-107) mmol/L Carbon Dioxide 20 L 22 21 L (22-30) mmol/L BUN 54 H 56 H 60 H (9-20) mg/dL Creatinine 4.5 H 4.6 H 4.6 H (0.8-1.5) mg/dL Glucose 165 H 116 H 98 (75-100) mg/dL Calcium 8.5 8.5 7.9 L (8.4-10.2) mg/dL
--- NOTE | 2019-04-11 14:43 | Progress Note ---
Assessment and Plan / Acute on chronic CHFrEF exacerbation Admited to ICU, Cardiology consulted in ED, cont strict I/O, daily weight, diuresis, pulse oximetry, Follow repeat echo result / ARF (acute renal failure) with tubular necrosis with possible underlying CKD Nephrology consulted, avoid nephrotoxic agents, Creatinine continued to decline, monitor renal function, / Seizure disorder Continue Keppra, seizure precaution. /Tobacco abuse Smoking cessation counseling done, nicotine patch as needed /Malignant HTN (hypertension) BP was 211/143 on admission, status post NTG drip monitor bp q shift, supportive care, adjust BP meds as needed As needed hydralazine /Acute hypoxic Respiratory failure Due to CHF exacerbation, now resolved Continue IV diuresis, Supplemental oxygen, nebulizer therapy and NIPPV as clinically indicated, . / Cocaine abuse, counselled to stop / DVT prophylaxis SCD to BLE while in bed, prophylactic heparin Physical exam: GENERAL: well-developed and well-nourished -[place] male lying on bed appeared to be in no discomfort. HEENT: Normocephalic. Atraumatic. No conjunctival congestion or icterus. Patient has moist mucous membranes. NECK: Supple. Trachea midline. CHEST/LUNGS: positive for bibasilar crackles auscultated bilaterally, breathing nonlabored. No wheezes or rhonchi. HEART/CARDIOVASCULAR: Regular in rate and rhythm. S1 and S2 positive. ABDOMEN: Abdomen is soft, nontender. Patient has normal bowel sounds. SKIN: There is no rash. Warm and dry. NEURO: No focal motor deficit. Follows command. MUSCULOSKELETAL: No joint effusion or tenderness. EXTRIMITY: No edema, no cyanosis or clubbing. PSYCH: Cooperative. Subjective Date of service: 04/11/19 Interval history: Patient seen and examined. Medical records and medication list reviewed. No acute event overnight noted by the RN. Patient denies any chest pain and denies difficulty breathing. Patient is tolerating diet. Cr trending up Discussed plan of care at bedside with patient. Objective - Constitutional Vitals: Vital Signs - 12hr 04/11/19 04/11/19 04/11/19 04:02 04:04 08:59 Temperature 97.9 F 98.6 F Pulse Rate 77 69 Pulse Rate [ From Monitor] Pulse Rate [ Left Radial] Pulse Rate [ Right Radial] Respiratory 18 20 Rate Blood Pressure 138/96 167/113 O2 Sat by Pulse 95 95 Oximetry 04/11/19 04/11/19 04/11/19 09:17 11:52 12:27 Temperature 98.4 F Pulse Rate 69 62 Pulse Rate [ 69 From Monitor] Pulse Rate [ 68 Left Radial] Pulse Rate [ 68 Right Radial] Respiratory 20 20 Rate Blood Pressure 167/113 122/70 O2 Sat by Pulse 95 96 Oximetry 04/11/19 13:51 Temperature Pulse Rate 62 Pulse Rate [ From Monitor] Pulse Rate [ Left Radial] Pulse Rate [ Right Radial] Respiratory Rate Blood Pressure 122/62 O2 Sat by Pulse Oximetry - Labs CBC & Chem 7: 04/12/19 05:28 04/12/19 05:28 Labs: Abnormal lab results 04/10/19 04/10/19 04/10/19 Range/Units 16:25 16:25 16:25 RBC 3.11 L (3.65-5.03) M/mm3 Hgb 10.4 L (11.8-15.2) gm/dl Hct 30.5 L (35.5-45.6) % MCV 98 H (84-94) fl MCH 34 H (28-32) pg RDW 16.4 H (13.2-15.2) % Chloride (98-107) mmol/L Carbon Dioxide (22-30) mmol/L BUN 56 H (9-20) mg/dL Creatinine 4.6 H (0.8-1.5) mg/dL Glucose 116 H (75-100) mg/dL Calcium (8.4-10.2) mg/dL Phosphorus 5.00 H (2.5-4.5) mg/dL PTH Intact 573.9 H (15-65) pg/mL Urine Creatinine (0.1-20.0) mg/dL Urine Microalbumin (0.1-34.0) mg/dL Urine Total Protein (5-11.8) mg/dL 04/10/19 04/11/19 04/11/19 Range/Units 18:15 05:22 05:22 RBC 3.20 L (3.65-5.03) M/mm3 Hgb 10.6 L (11.8-15.2) gm/dl Hct 31.6 L (35.5-45.6) % MCV 99 H (84-94) fl MCH 33 H (28-32) pg RDW 16.6 H (13.2-15.2) % Chloride 108.0 H (98-107) mmol/L Carbon Dioxide 21 L (22-30) mmol/L BUN 60 H (9-20) mg/dL Creatinine 4.6 H (0.8-1.5) mg/dL Glucose (75-100) mg/dL Calcium 7.9 L (8.4-10.2) mg/dL Phosphorus (2.5-4.5) mg/dL PTH Intact (15-65) pg/mL Urine Creatinine 134.8 H (0.1-20.0) mg/dL Urine Microalbumin 74.5 H (0.1-34.0) mg/dL Urine Total Protein 117 H (5-11.8) mg/dL
[2019-04-11] MEDS: LASIX PO SCH (17:19)
[2019-04-11 20:15] LABS: WBC,Urine < 1.0 /HPF (0.0-6.0)
[2019-04-11] MEDS: PRAVACHOL PO SCH (22:25)
[2019-04-12] MEDS: APRESOLINE PO SCH ×3 (03:07→21:28)
[2019-04-12] MEDS: LASIX PO SCH ×2 (05:48→17:33)
[2019-04-12 05:57] LABS: Hematocrit 31.9 % (35.5-45.6); Hemoglobin 10.7 gm/dl (11.8-15.2); Mean Corpuscular HGB Conc 34 % (32-34); Mean Corpuscular Volume 98 fl (84-94); Platelet Count 224 K/mm3 (140-440); Red Blood Count 3.27 M/mm3 (3.65-5.03); Red Cell Distribution Width 16.1 % (13.2-15.2)
[2019-04-12 06:14] LABS: Calcium 8.3 mg/dL (8.4-10.2)
[2019-04-12] MEDS: KEPPRA PO SCH ×2 (08:59→21:25)
[2019-04-12] MEDS: NORVASC PO SCH (09:00)
[2019-04-12] MEDS: BABY ASPIRIN PO SCH (09:00)
[2019-04-12] MEDS: HEPARIN SUB-Q SCH ×2 (09:00→21:25)
[2019-04-12] MEDS: COREG PO SCH ×2 (09:00→21:25)
[2019-04-12] MEDS: SODIUM CHLORIDE FLUSH SYRINGE 10 ML IV SCH ×2 (09:01→21:26)
--- NOTE | 2019-04-12 09:20 | Progress Note ---
Assessment and Plan Acute on chronic systolic CHF: Acute Kidney Injury possibly prerenal, cardiorenal syndrome, ? AIN, on underlying CKD likely due to HTN Non-Anion Gap Metabolic Acidosis Tobacco and cocaine abuse: Essential Hypertension Non-ischemic Cardiomyopathy: COPD Plan: - stable Cr, non-oliguric, may need to be initiated on HD during this hospital visit, will check 24 hours creatinine clearance - Possibly HUNTER on CKD, underlying CKD possibly due to HTN, pt could also have progression of underlying CKD due to uncontrolled HTN - Calculated protein cr ratio ~ 0.8 g, urine eosinophils positive at 3, ? AIN, will obtain GN/vasculitis work up, ASA was stopped for possible need for kidney biopsy - Elevated PTH consistent with underlying CKD - Renal US showed no acute finding or hydronephrosis - Adjust BP medications as needed - Cardiology on board, repeat Echo, f/u recs - Renally dose meds - Strict intake and output - White Catheter: No Zach Marroquin MD [phone] Subjective Date of service: 04/12/19 Principal diagnosis: acute on chronic kidney failure Interval history: denies acute issues, mild weakness Objective - Vital Signs Vital signs: Vital Signs - 12hr 04/11/19 04/11/19 04/11/19 21:27 22:25 22:27 Temperature Pulse Rate 79 79 Respiratory Rate Blood Pressure 142/90 142/90 O2 Sat by Pulse 97 Oximetry 04/12/19 04/12/19 04/12/19 00:31 00:32 03:07 Temperature 98.4 F Pulse Rate 69 69 Respiratory 18 Rate Blood Pressure 146/93 146/93 O2 Sat by Pulse 96 Oximetry 04/12/19 04/12/19 04/12/19 04:25 04:27 08:49 Temperature 97.8 F Pulse Rate 75 65 Respiratory 18 Rate Blood Pressure 138/93 O2 Sat by Pulse 96 Oximetry 04/12/19 04/12/19 08:50 09:00 Temperature Pulse Rate 70 Respiratory 18 Rate Blood Pressure O2 Sat by Pulse Oximetry - General Appearance General appearance: well-developed, well-nourished, appears stated age EENT: ATNC, PERRL, mucous membranes moist Neck: no JVD, no carotid bruit Respiratory: Present: Clear to Ascultation. Absent: Rales, Ronchi Cardiology: regular, S1S2 Gastrointestinal: normoactive bowel sounds Integumentary: no rash, warm and dry Neurologic: no focal deficit, no asterixis, alert and oriented x3 Musculoskeletal: deferred Psychiatric: mood/affect appropriate, cooperative - Lab 04/12/19 05:28 04/12/19 05:28 Most recent lab results Calcium 8.3 mg/dL (8.4-10.2) L 04/12/19 05:28 Phosphorus 5.00 mg/dL (2.5-4.5) H 04/10/19 16:25 Magnesium 1.90 mg/dL (1.7-2.3) 04/10/19 16:25 134.8 mg/dL (0.1-20.0) H 04/10/19 18:15 34 mmol/L 04/10/19 18:15 117 mg/dL (5-11.8) H 04/10/19 18:15 Medications & Allergies - Medications Allergies/Adverse Reactions: Allergies No Known Allergies Allergy (Verified 04/09/19 13:12) Home Medications: Home Medications Medication Instructions Recorded Confirmed Last Taken Type Aspirin [Aspirin BABY CHEW TAB] 81 mg PO QDAY #30 tab.chew 11/22/17 04/10/19 04/10/19 Rx Carvedilol [Coreg] 25 mg PO BID #30 tablet 11/22/17 04/10/19 04/10/19 Rx Pravastatin Sodium [Pravastatin] 20 mg PO QHS #60 tablet 11/22/17 04/10/19 04/10/19 Rx amLODIPine [Norvasc] 10 mg PO QDAY #30 tablet 11/22/17 04/10/19 04/10/19 Rx levETIRAcetam [Keppra TAB] 750 mg PO BID #60 tablet 11/22/17 04/10/19 04/10/19 Rx Active Medications: Generic Name Dose Route Start Last Admin Trade Name Freq PRN Reason Stop Dose Admin Acetaminophen 650 mg 04/09/19 20:13 Tylenol PO Q4H PRN Pain MILD(1-3)/Fever >100.5/TORIBIO Albuterol 2.5 mg 04/09/19 20:13 Proventil IH Q4HRT PRN Shortness Of Breath Amlodipine Besylate 10 mg 04/10/19 10:00 04/12/19 09:00 Norvasc PO 10 mg QDAY WILL Administration Carvedilol 25 mg 04/09/19 22:00 04/12/19 09:00 Coreg PO 25 mg BID WILL Administration Furosemide 40 mg 04/11/19 18:00 04/12/19 05:48 Lasix PO 40 mg 0600,1800 WILL Administration Heparin Sodium (Porcine) 5,000 unit 04/10/19 10:00 04/12/19 09:00 Heparin SUB-Q 5,000 unit Q12HR WILL Administration Hydralazine HCl 50 mg 04/11/19 12:00 04/12/19 03:07 Apresoline PO 50 mg Q8H WILL Administration Levetiracetam 750 mg 04/09/19 22:00 04/12/19 08:59 Keppra PO 750 mg BID WILL Administration Morphine Sulfate 2 mg 04/09/19 20:13 Morphine IV Q4H PRN Pain, Moderate (4-6) Ondansetron HCl 4 mg 04/09/19 20:13 Zofran IV Q8H PRN Nausea And Vomiting Oxycodone/Acetaminophen 1 tab 04/09/19 20:13 04/09/19 23:59 Percocet 5/325 PO 1 tab Q6H PRN Administration Pain, Moderate (4-6) Pravastatin Sodium 20 mg 04/09/19 22:00 04/11/19 22:25 Pravachol PO 20 mg QHS WILL Administration Sodium Chloride 10 ml 04/09/19 22:00 04/12/19 09:01 Sodium Chloride Flush Syringe 10 Ml IV 10 ml BID WILL Administration Sodium Chloride 10 ml 04/09/19 20:13 04/11/19 05:26 Sodium Chloride Flush Syringe 10 Ml IV 10 ml PRN PRN Administration LINE FLUSH
--- NOTE | 2019-04-12 11:50 | Progress Note ---
Assessment and Plan Acute on chronic systolic heart failure Acute on CKD Non-Ischemic cardiomyopathy EF 20-25% by echo this admission. no ischemia by MPI 12/2016. Htn Seizure disorder Tobacco and cocaine abuse Noncompliance Recommend: Counseled to stop cocaine use. Continue medical therapy for systolic heart failure and nonischemic cardiomyopathy. Subjective Date of service: 04/12/19 Principal diagnosis: acute on chronic kidney failure Interval history: Patient reports his breathing is better. Wants to go home. No events on telemetry. Objective Vital Signs Temp Pulse Pulse Pulse Pulse Resp BP 04/12/19 09:00 70 04/12/19 08:50 18 04/12/19 08:49 65 04/12/19 04:27 97.8 F 04/12/19 04:25 75 18 138/93 04/12/19 03:07 69 146/93 04/12/19 00:32 98.4 F 04/12/19 00:31 69 18 146/93 04/11/19 22:27 79 142/90 04/11/19 22:25 79 142/90 04/11/19 21:27 04/11/19 19:40 98.5 F 04/11/19 19:39 79 20 142/90 04/11/19 19:20 76 04/11/19 13:51 62 122/62 04/11/19 12:27 69 68 68 20 04/11/19 11:52 98.4 F 62 20 122/70 Pulse Ox 04/12/19 09:00 04/12/19 08:50 04/12/19 08:49 04/12/19 04:27 04/12/19 04:25 96 04/12/19 03:07 04/12/19 00:32 04/12/19 00:31 96 04/11/19 22:27 04/11/19 22:25 04/11/19 21:27 97 04/11/19 19:40 04/11/19 19:39 100 04/11/19 19:20 04/11/19 13:51 04/11/19 12:27 96 04/11/19 11:52 95 - Physical Examination General: No Apparent Distress HEENT: Positive: PERRL Neck: Positive: neck supple Cardiac: Positive: Reg Rate and Rhythm Lungs: Positive: Decreased Breath Sounds Neuro: Positive: Grossly Intact Extremities: Absent: edema - Labs and Meds CBC 04/12/19 Range/Units 05:28 WBC 4.3 L (4.5-11.0) K/mm3 RBC 3.27 L (3.65-5.03) M/mm3 Hgb 10.7 L (11.8-15.2) gm/dl Hct 31.9 L (35.5-45.6) % Plt Count 224 (140-440) K/mm3 Comprehensive Metabolic Panel 04/12/19 Range/Units 05:28 Sodium 139 (137-145) mmol/L Potassium 4.7 (3.6-5.0) mmol/L Chloride 105.3 (98-107) mmol/L Carbon Dioxide 22 (22-30) mmol/L BUN 64 H (9-20) mg/dL Creatinine 4.5 H (0.8-1.5) mg/dL Glucose 98 (75-100) mg/dL Calcium 8.3 L (8.4-10.2) mg/dL
--- NOTE | 2019-04-12 15:53 | Progress Note ---
Assessment and Plan / Acute on chronic CHFrEF exacerbation Admited to ICU, Cardiology consulted in ED, cont strict I/O, daily weight, diuresis, pulse oximetry, Follow repeat echo result / ARF (acute renal failure) with tubular necrosis with possible underlying CKD Nephrology consulted, avoid nephrotoxic agents, Creatinine continued to decline, monitor renal function, / Seizure disorder Continue Keppra, seizure precaution. /Tobacco abuse Smoking cessation counseling done, nicotine patch as needed /Malignant HTN (hypertension) BP was 211/143 on admission, status post NTG drip monitor bp q shift, supportive care, adjust BP meds as needed As needed hydralazine /Acute hypoxic Respiratory failure Due to CHF exacerbation, now resolved Continue IV diuresis, Supplemental oxygen, nebulizer therapy and NIPPV as clinically indicated, . / Cocaine abuse, counselled to stop / DVT prophylaxis SCD to BLE while in bed, prophylactic heparin Disposition: d/c when clears by nephrology Brief History: This is a 58 y/o M with PMH of HTN, seizure disorder, nicotine dependence, systolic CHF, hyperlipidemia, and osteoarthritis who presented to [facility] ED with c/o worsening shortness of breath, SPANGLER, fatigue, weight gain (12 lbs), generalized weakness, decreased activity tolerance, urinary hesistancy, difficulty starting urine with feeling of incomplete emptying. Pt reported being non-compliant with his medications and cardiac diet. Pt denies taking diuretics at home. Pt admitted to ICU, started on IV lasix. On admission, SCr level was 3.3, Pt also found to have UDS + for cocaine, BNP was 27,264, BP was 211/143 on admission. Cardiology consulted for CHF. Patient admitted to ICU for further evaluation and Mx Physical exam: GENERAL: well-developed and well-nourished -[place] male lying on bed appeared to be in no discomfort. HEENT: Normocephalic. Atraumatic. No conjunctival congestion or icterus. Patient has moist mucous membranes. NECK: Supple. Trachea midline. CHEST/LUNGS: positive for bibasilar crackles auscultated bilaterally, breathing nonlabored. No wheezes or rhonchi. HEART/CARDIOVASCULAR: Regular in rate and rhythm. S1 and S2 positive. ABDOMEN: Abdomen is soft, nontender. Patient has normal bowel sounds. SKIN: There is no rash. Warm and dry. NEURO: No focal motor deficit. Follows command. MUSCULOSKELETAL: No joint effusion or tenderness. EXTRIMITY: No edema, no cyanosis or clubbing. PSYCH: Cooperative. Subjective Date of service: 04/12/19 Principal diagnosis: acute on chronic kidney failure Interval history: Patient seen and examined. Medical records and medication list reviewed. No acute event overnight noted by the RN. Patient denies any chest pain and denies difficulty breathing. Patient is tolerating diet. Cr trending up Discussed plan of care at bedside with patient. Objective - Constitutional Vitals: Vital Signs - 12hr 04/12/19 04/12/19 04/12/19 04:25 04:27 08:49 Temperature 97.8 F Pulse Rate 75 65 Respiratory 18 Rate Blood Pressure 138/93 O2 Sat by Pulse 96 Oximetry 04/12/19 04/12/19 04/12/19 08:50 09:00 10:00 Temperature Pulse Rate 70 Respiratory 18 Rate Blood Pressure O2 Sat by Pulse 99 Oximetry - Labs CBC & Chem 7: 04/12/19 05:28 04/12/19 05:28 Labs: Abnormal lab results 04/12/19 04/12/19 Range/Units 05:28 05:28 WBC 4.3 L (4.5-11.0) K/mm3 RBC 3.27 L (3.65-5.03) M/mm3 Hgb 10.7 L (11.8-15.2) gm/dl Hct 31.9 L (35.5-45.6) % MCV 98 H (84-94) fl MCH 33 H (28-32) pg RDW 16.1 H (13.2-15.2) % BUN 64 H (9-20) mg/dL Creatinine 4.5 H (0.8-1.5) mg/dL Calcium 8.3 L (8.4-10.2) mg/dL
[2019-04-12] MEDS: PRAVACHOL PO SCH (21:25)
[2019-04-13] MEDS: LASIX PO SCH ×3 (04:34→18:46)
[2019-04-13] MEDS: APRESOLINE PO SCH ×3 (04:34→22:20)
[2019-04-13 07:44] LABS: Hemoglobin 11.4 gm/dl (11.8-15.2); Mean Corpuscular HGB Conc 34 % (32-34); Mean Corpuscular Volume 97 fl (84-94); Platelet Count 248 K/mm3 (140-440); Red Blood Count 3.41 M/mm3 (3.65-5.03); Red Cell Distribution Width 15.9 % (13.2-15.2)
[2019-04-13 08:07] LABS: Calcium 8.7 mg/dL (8.4-10.2)
--- NOTE | 2019-04-13 10:03 | Progress Note ---
Assessment and Plan Acute on chronic systolic CHF: Acute Kidney Injury possibly prerenal, cardiorenal syndrome, ? AIN, on underlying CKD likely due to HTN Non-Anion Gap Metabolic Acidosis Tobacco and cocaine abuse: Essential Hypertension Non-ischemic Cardiomyopathy: COPD Plan: - stable Cr, non-oliguric, creatinine clearance is pending, no indication for [employer] - Possibly HUNTER on CKD, underlying CKD possibly due to HTN, pt could also have progression of underlying CKD due to uncontrolled HTN - Calculated protein cr ratio ~ 0.8 g, urine eosinophils positive at 3, ? AIN, will obtain GN/vasculitis work up, pending, ASA was stopped for possible need for kidney biopsy - Elevated PTH consistent with underlying CKD - Renal US showed no acute finding or hydronephrosis - Adjust BP medications as needed - Cardiology on board, repeat Echo, f/u recs - Renally dose meds - Strict intake and output - White Catheter: No Zach Marroquin MD [phone] Subjective Date of service: 04/13/19 Principal diagnosis: acute on chronic kidney failure Interval history: comfortable, denies acute issues Objective - Vital Signs Vital signs: Vital Signs - 12hr 04/12/19 04/13/19 04/13/19 23:26 04:46 07:20 Temperature 98.3 F 98.4 F 98.1 F Pulse Rate 74 68 76 Respiratory 20 18 18 Rate Blood Pressure 133/87 150/95 132/82 O2 Sat by Pulse 98 97 85 Oximetry 04/13/19 09:49 Temperature Pulse Rate Respiratory Rate Blood Pressure O2 Sat by Pulse 100 Oximetry - General Appearance General appearance: well-developed, well-nourished, appears stated age EENT: ATNC, PERRL, mucous membranes moist Neck: no JVD, no carotid bruit Respiratory: Present: Clear to Ascultation. Absent: Rales, Ronchi Cardiology: regular, S1S2 Gastrointestinal: normoactive bowel sounds, no tenderness, no distended Integumentary: no rash, warm and dry Neurologic: no focal deficit, no asterixis, alert and oriented x3 Musculoskeletal: other (no edema in BLE) Psychiatric: mood/affect appropriate, cooperative - Lab 04/13/19 07:26 04/13/19 07:26 Most recent lab results Calcium 8.7 mg/dL (8.4-10.2) 04/13/19 07:26 Phosphorus 5.00 mg/dL (2.5-4.5) H 04/10/19 16:25 Magnesium 1.90 mg/dL (1.7-2.3) 04/10/19 16:25 134.8 mg/dL (0.1-20.0) H 04/10/19 18:15 34 mmol/L 04/10/19 18:15 117 mg/dL (5-11.8) H 04/10/19 18:15 Medications & Allergies - Medications Allergies/Adverse Reactions: Allergies No Known Allergies Allergy (Verified 04/09/19 13:12) Home Medications: Home Medications Medication Instructions Recorded Confirmed Last Taken Type Aspirin [Aspirin BABY CHEW TAB] 81 mg PO QDAY #30 tab.chew 11/22/17 04/10/19 04/10/19 Rx Carvedilol [Coreg] 25 mg PO BID #30 tablet 11/22/17 04/10/19 04/10/19 Rx Pravastatin Sodium [Pravastatin] 20 mg PO QHS #60 tablet 11/22/17 04/10/19 04/10/19 Rx amLODIPine [Norvasc] 10 mg PO QDAY #30 tablet 11/22/17 04/10/19 04/10/19 Rx levETIRAcetam [Keppra TAB] 750 mg PO BID #60 tablet 11/22/17 04/10/19 04/10/19 Rx Active Medications: Generic Name Dose Route Start Last Admin Trade Name Freq PRN Reason Stop Dose Admin Acetaminophen 650 mg 04/09/19 20:13 Tylenol PO Q4H PRN Pain MILD(1-3)/Fever >100.5/TORIBIO Albuterol 2.5 mg 04/09/19 20:13 Proventil IH Q4HRT PRN Shortness Of Breath Amlodipine Besylate 10 mg 04/10/19 10:00 04/12/19 09:00 Norvasc PO 10 mg QDAY WILL Administration Carvedilol 25 mg 04/09/19 22:00 04/12/19 21:25 Coreg PO 25 mg BID WILL Administration Furosemide 40 mg 04/11/19 18:00 04/13/19 05:16 Lasix PO Not Given 0600,1800 WILL Heparin Sodium (Porcine) 5,000 unit 04/10/19 10:00 04/12/19 21:25 Heparin SUB-Q 5,000 unit Q12HR WILL Administration Hydralazine HCl 50 mg 04/11/19 12:00 04/13/19 04:34 Apresoline PO 50 mg Q8H WILL Administration Levetiracetam 750 mg 04/09/19 22:00 04/12/19 21:25 Keppra PO 750 mg BID WILL Administration Morphine Sulfate 2 mg 04/09/19 20:13 Morphine IV Q4H PRN Pain, Moderate (4-6) Ondansetron HCl 4 mg 04/09/19 20:13 Zofran IV Q8H PRN Nausea And Vomiting Oxycodone/Acetaminophen 1 tab 04/09/19 20:13 04/09/19 23:59 Percocet 5/325 PO 1 tab Q6H PRN Administration Pain, Moderate (4-6) Pravastatin Sodium 20 mg 04/09/19 22:00 04/12/19 21:25 Pravachol PO 20 mg QHS WILL Administration Sodium Chloride 10 ml 04/09/19 22:00 04/12/19 21:26 Sodium Chloride Flush Syringe 10 Ml IV 10 ml BID WILL Administration Sodium Chloride 10 ml 04/09/19 20:13 04/11/19 05:26 Sodium Chloride Flush Syringe 10 Ml IV 10 ml PRN PRN Administration LINE FLUSH
--- NOTE | 2019-04-13 10:37 | Progress Note ---
Assessment and Plan Acute on chronic systolic heart failure Acute on CKD Non-Ischemic cardiomyopathy EF 20-25% by echo this admission. no ischemia by MPI 12/2016. Htn Seizure disorder Tobacco and cocaine abuse Noncompliance Recommend: Continue medical therapy for systolic heart failure and nonischemic cardiomyopathy. Subjective Date of service: 04/13/19 Principal diagnosis: acute on chronic kidney failure Interval history: Patient has no complaints. No cardiac events on telemetry. Objective Vital Signs Temp Pulse Resp BP Pulse Ox 04/13/19 09:49 100 04/13/19 07:20 98.1 F 76 18 132/82 85 04/13/19 04:46 98.4 F 68 18 150/95 97 04/12/19 23:26 98.3 F 74 20 133/87 98 04/12/19 20:00 70 99 04/12/19 19:52 98.4 F 66 20 129/81 94 04/12/19 17:41 97.5 F L 18 147/99 04/12/19 11:52 98.3 F 100 H 18 146/94 89 - Physical Examination General: No Apparent Distress HEENT: Positive: PERRL Neck: Positive: neck supple Cardiac: Positive: Reg Rate and Rhythm Lungs: Positive: Decreased Breath Sounds Neuro: Positive: Grossly Intact Abdomen: Positive: Soft, Active Bowel Sounds Extremities: Absent: edema - Labs and Meds CBC 04/13/19 Range/Units 07:26 WBC 3.7 L (4.5-11.0) K/mm3 RBC 3.41 L (3.65-5.03) M/mm3 Hgb 11.4 L (11.8-15.2) gm/dl Hct 33.0 L (35.5-45.6) % Plt Count 248 (140-440) K/mm3 Comprehensive Metabolic Panel 04/13/19 Range/Units 07:26 Sodium 140 (137-145) mmol/L Potassium 4.6 (3.6-5.0) mmol/L Chloride 105.3 (98-107) mmol/L Carbon Dioxide 22 (22-30) mmol/L BUN 65 H (9-20) mg/dL Creatinine 4.4 H (0.8-1.5) mg/dL Glucose 106 H (75-100) mg/dL Calcium 8.7 (8.4-10.2) mg/dL
[2019-04-13] MEDS: COREG PO SCH ×2 (10:51→22:21)
[2019-04-13] MEDS: NORVASC PO SCH (10:52)
[2019-04-13] MEDS: KEPPRA PO SCH ×2 (10:52→22:21)
[2019-04-13] MEDS: SODIUM CHLORIDE FLUSH SYRINGE 10 ML IV SCH ×2 (10:53→22:25)
[2019-04-13] MEDS: HEPARIN SUB-Q SCH ×2 (10:56→22:21)
--- NOTE | 2019-04-13 17:01 | Progress Note ---
Assessment and Plan Assessment and plan: --Malignant HTN (hypertension) BP was 211/143 on admission, status post NTG drip monitor bp q shift, supportive care, adjust BP meds as needed As needed hydralazine --Acute hypoxic Respiratory failure Due to CHF exacerbation, now resolved Continue IV diuresis, Supplemental oxygen, nebulizer therapy and NIPPV as clinically indicated, . --Acute on chronic CHFrEF exacerbation Admited to ICU, Cardiology consulted in ED, cont strict I/O, daily weight, diuresis, pulse oximetry, Follow repeat echo result -- ARF (acute renal failure) with tubular necrosis with possible underlying CKD Nephrology consulted, avoid nephrotoxic agents, Creatinine continued to decline, monitor renal function, -- Seizure disorder Continue Mauro, seizure precaution. --Tobacco abuse Smoking cessation counseling done, nicotine patch as needed --Cocaine abuse, counselled to stop -- DVT prophylaxis SCD to BLE while in bed, prophylactic heparin Disposition: d/c when clears by nephrology Brief History: This is a 58 y/o M with PMH of HTN, seizure disorder, nicotine dependence, systolic CHF, hyperlipidemia, and osteoarthritis who presented to [facility] with c/o worsening shortness of breath, SPANGLER, fatigue, weight gain (12 lbs), generalized weakness, decreased activity tolerance, urinary hesistancy, difficulty starting urine with feeling of incomplete emptying. Pt reported being non-compliant with his medications and cardiac diet. Pt denies taking diuretics at home. Pt admitted to ICU, started on IV lasix. On admission, SCr level was 3.3, Pt also found to have UDS + for cocaine, BNP was 27,264, BP was 211/143 on admission. Cardiology consulted for CHF. Patient admitted to ICU for further evaluation and Mx History Interval history: Patient seen and examined medical records reviewed Patient complains of mild shortness of breath Denies chest pain, vital signs reviewed Hospitalist Physical - Constitutional Vitals: Temp Pulse Resp BP Pulse Ox 97.6 F 64 18 133/96 100 04/13/19 11:31 04/13/19 12:00 04/13/19 11:31 04/13/19 11:31 04/13/19 09:49 General appearance: Present: no acute distress, well-nourished - EENT Eyes: Present: PERRL, EOM intact - Neck Neck: Present: supple, normal ROM - Respiratory Respiratory effort: normal Respiratory: bilateral: diminished, rales, negative: rhonchi, wheezing - Cardiovascular Rhythm: regular Heart Sounds: Present: S1 & S2 - Extremities Extremities: no ischemia Extremity abnormal: edema - Abdominal General gastrointestinal: soft, non-tender, non-distended, normal bowel sounds - Integumentary Integumentary: Present: clear, warm - Psychiatric Psychiatric: appropriate mood/affect, cooperative - Neurologic Neurologic: CNII-XII intact, moves all extremities Results - Labs CBC & Chem 7: 04/13/19 07:26 04/13/19 07:26 Labs: Laboratory Last Values WBC 3.7 K/mm3 (4.5-11.0) L 04/13/19 07:26 RBC 3.41 M/mm3 (3.65-5.03) L 04/13/19 07:26 Hgb 11.4 gm/dl (11.8-15.2) L 04/13/19 07:26 Hct 33.0 % (35.5-45.6) L 04/13/19 07:26 MCV 97 fl (84-94) H 04/13/19 07:26 MCH 33 pg (28-32) H 04/13/19 07:26 MCHC 34 % (32-34) 04/13/19 07:26 RDW 15.9 % (13.2-15.2) H 04/13/19 07:26 Plt Count 248 K/mm3 (140-440) 04/13/19 07:26 Lymph % (Auto) 28.4 % (13.4-35.0) 04/11/19 05:22 [place] % (Auto) 5.6 % (0.0-7.3) 04/11/19 05:22 Eos % (Auto) 0.9 % (0.0-4.3) 04/11/19 05:22 Baso % (Auto) 0.8 % (0.0-1.8) 04/11/19 05:22 Lymph # 1.8 K/mm3 (1.2-5.4) 04/11/19 05:22 [place] # 0.4 K/mm3 (0.0-0.8) 04/11/19 05:22 Eos # 0.1 K/mm3 (0.0-0.4) 04/11/19 05:22 Baso # 0.1 K/mm3 (0.0-0.1) 04/11/19 05:22 Seg Neutrophils % 64.3 % (40.0-70.0) 04/11/19 05:22 Seg Neutrophils # 4.2 K/mm3 (1.8-7.7) 04/11/19 05:22 Sodium 140 mmol/L (137-145) 04/13/19 07:26 Potassium 4.6 mmol/L (3.6-5.0) 04/13/19 07:26 Chloride 105.3 mmol/L (98-107) 04/13/19 07:26 Carbon Dioxide 22 mmol/L (22-30) 04/13/19 07:26 17 mmol/L 04/13/19 07:26 BUN 65 mg/dL (9-20) H 04/13/19 07:26 4.4 mg/dL (0.8-1.5) H 04/13/19 07:26 Estimated GFR 17 ml/min 04/13/19 07:26 15 % 04/13/19 07:26 Glucose 106 mg/dL (75-100) H 04/13/19 07:26 Calcium 8.7 mg/dL (8.4-10.2) 04/13/19 07:26 Phosphorus 5.00 mg/dL (2.5-4.5) H 04/10/19 16:25 Magnesium 1.90 mg/dL (1.7-2.3) 04/10/19 16:25 0.20 mg/dL (0.1-1.2) 04/09/19 13:41 AST 23 units/L (5-40) 04/09/19 13:41 ALT 21 units/L (7-56) 04/09/19 13:41 138 units/L (35-129) H 04/09/19 13:41 0.034 ng/mL (0.00-0.029) H 04/10/19 06:18 NT-Pro-B Natriuret Pep 69487 pg/mL (0-900) H 04/09/19 13:41 6.7 g/dL (6.3-8.2) 04/09/19 13:41 3.5 g/dL (3.9-5) L 04/09/19 13:41 1.1 % 04/09/19 13:41 Triglycerides 64 mg/dL (2-149) 04/09/19 13:41 Cholesterol 141 mg/dL (50-199) 04/09/19 13:41 76 mg/dL (50-130) 04/09/19 13:41 59 mg/dL (40-59) 04/09/19 13:41 2.38 % 04/09/19 13:41 TSH 0.821 mlU/mL (0.270-4.200) 04/09/19 19:09 Free T4 1.25 ng/dL (0.76-1.46) 04/09/19 19:09 PTH Intact 573.9 pg/mL (15-65) H 04/10/19 16:25 < 1.0 /HPF (0.0-6.0) 04/11/19 19:12 1.0 /HPF (0.0-6.0) 04/11/19 19:12 U Epithel Cells (Auto) 1.0 /HPF (0-13.0) 04/10/19 18:15 3 (None Seen) 04/10/19 18:15 134.8 mg/dL (0.1-20.0) H 04/10/19 18:15 74.5 mg/dL (0.1-34.0) H 04/10/19 18:15 Microalb/Creat Ratio 552.6 ug/mg 04/10/19 18:15 34 mmol/L 04/10/19 18:15 117 mg/dL (5-11.8) H 04/10/19 18:15 Presumptive negative 04/09/19 00:40 Presumptive negative 04/09/19 00:40 Ur Barbiturates Screen Presumptive negative 04/09/19 00:40 Ur Phencyclidine Scrn Presumptive negative 04/09/19 00:40 Ur Amphetamines Screen Presumptive negative 04/09/19 00:40 U Benzodiazepines Scrn Presumptive negative 04/09/19 00:40 Presumptive positive 04/09/19 00:40 U Marijuana (THC) Screen Presumptive negative 04/09/19 00:40 Disclamer 04/09/19 00:40 Hepatitis A IgM Ab Non-reactive (NonReactive) 04/11/19 06:56 Hep Bs Antigen Non-reactive (Negative) 04/11/19 06:56 Hep B Core IgM Ab Non-reactive (NonReactive) 04/11/19 06:56 Non-reactive (NonReactive) 04/11/19 06:56 HIV 1&2 Antibody Rapid Non react (Non React) 04/11/19 06:56 Non react (Non React) 04/11/19 06:56 Active Medications - Current Medications Current Medications: Generic Name Dose Route Start Last Admin Trade Name Freq PRN Reason Stop Dose Admin Acetaminophen 650 mg 04/09/19 20:13 Tylenol PO Q4H PRN Pain MILD(1-3)/Fever >100.5/TORIBIO Albuterol 2.5 mg 04/09/19 20:13 Proventil IH Q4HRT PRN Shortness Of Breath Amlodipine Besylate 10 mg 04/10/19 10:00 04/13/19 10:52 Norvasc PO 10 mg QDAY WILL Administration Carvedilol 25 mg 04/09/19 22:00 04/13/19 10:51 Coreg PO 25 mg BID WILL Administration Furosemide 40 mg 04/11/19 18:00 04/13/19 05:16 Lasix PO Not Given 0600,1800 WILL Heparin Sodium (Porcine) 5,000 unit 04/10/19 10:00 04/13/19 10:56 Heparin SUB-Q 5,000 unit Q12HR WILL Administration Hydralazine HCl 50 mg 04/11/19 12:00 04/13/19 04:34 Apresoline PO 50 mg Q8H WILL Administration Levetiracetam 750 mg 04/09/19 22:00 04/13/19 10:52 Keppra PO 750 mg BID WILL Administration Morphine Sulfate 2 mg 04/09/19 20:13 Morphine IV Q4H PRN Pain, Moderate (4-6) Ondansetron HCl 4 mg 04/09/19 20:13 Zofran IV Q8H PRN Nausea And Vomiting Oxycodone/Acetaminophen 1 tab 04/09/19 20:13 04/09/19 23:59 Percocet 5/325 PO 1 tab Q6H PRN Administration Pain, Moderate (4-6) Pravastatin Sodium 20 mg 04/09/19 22:00 04/12/19 21:25 Pravachol PO 20 mg QHS WILL Administration Sodium Chloride 10 ml 04/09/19 22:00 04/13/19 10:53 Sodium Chloride Flush Syringe 10 Ml IV 10 ml BID WILL Administration Sodium Chloride 10 ml 04/09/19 20:13 04/11/19 05:26 Sodium Chloride Flush Syringe 10 Ml IV 10 ml PRN PRN Administration LINE FLUSH
[2019-04-13] MEDS: PRAVACHOL PO SCH (22:20)
[2019-04-14] MEDS: APRESOLINE PO SCH ×2 (05:34→14:22)
[2019-04-14] MEDS: LASIX PO SCH (05:35)
[2019-04-14 07:07] LABS: Calcium 8.6 mg/dL (8.4-10.2)
[2019-04-14 07:17] LABS: Basophils # (Auto) 0.1 K/mm3 (0.0-0.1); Basophils % (Auto) 1.6 % (0.0-1.8); Eosinophils # (Auto) 0.1 K/mm3 (0.0-0.4); Eosinophils % (Auto) 2.7 % (0.0-4.3); Hematocrit 31.2 % (35.5-45.6); Hemoglobin 10.6 gm/dl (11.8-15.2); Lymphocytes # (Auto) 1.7 K/mm3 (1.2-5.4); Lymphocytes % (Auto) 44.4 % (13.4-35.0); Mean Corpuscular HGB Conc 34 % (32-34); Mean Corpuscular Volume 97 fl (84-94); Monocytes # (Auto) 0.4 K/mm3 (0.0-0.8); Monocytes % (Auto) 9.6 % (0.0-7.3); Platelet Count 238 K/mm3 (140-440); Red Blood Count 3.22 M/mm3 (3.65-5.03); Red Cell Distribution Width 15.8 % (13.2-15.2)
--- NOTE | 2019-04-14 09:02 | Progress Note ---
<LLOYD TRACY - Last Filed: 04/14/19 10:53> Assessment and Plan Acute on chronic systolic heart failure Acute on CKD Non-Ischemic cardiomyopathy EF 20-25% by echo this admission. no ischemia by MPI 12/2016. Htn Seizure disorder Tobacco and cocaine abuse Noncompliance Recommend: Continue medical therapy for systolic heart failure and nonischemic cardiomyopathy. Subjective Date of service: 04/14/19 Principal diagnosis: acute on chronic kidney failure Interval history: Patient has no complaints. Objective Vital Signs Temp Pulse Resp BP Pulse Ox 04/14/19 08:12 98.5 F 71 18 124/79 97 04/14/19 05:14 98.3 F 04/14/19 05:11 68 18 127/85 95 04/13/19 22:56 98.3 F 04/13/19 22:54 73 20 132/79 97 04/13/19 22:00 75 04/13/19 20:31 97.9 F 04/13/19 20:03 68 18 125/76 96 04/13/19 18:00 64 04/13/19 17:51 97.5 F L 60 18 133/86 75 L 04/13/19 12:00 64 04/13/19 11:31 97.6 F 18 133/96 04/13/19 10:52 75 04/13/19 10:51 75 04/13/19 09:49 100 - Physical Examination General: No Apparent Distress HEENT: Positive: PERRL Neck: Positive: neck supple Cardiac: Positive: Reg Rate and Rhythm Lungs: Positive: Decreased Breath Sounds Neuro: Positive: Grossly Intact Extremities: Absent: edema - Labs and Meds CBC 04/14/19 Range/Units 06:19 WBC 3.8 L (4.5-11.0) K/mm3 RBC 3.22 L (3.65-5.03) M/mm3 Hgb 10.6 L (11.8-15.2) gm/dl Hct 31.2 L (35.5-45.6) % Plt Count 238 (140-440) K/mm3 Lymph # 1.7 (1.2-5.4) K/mm3 [place] # 0.4 (0.0-0.8) K/mm3 Eos # 0.1 (0.0-0.4) K/mm3 Baso # 0.1 (0.0-0.1) K/mm3 Comprehensive Metabolic Panel 04/14/19 Range/Units 06:19 Sodium 138 (137-145) mmol/L Potassium 4.4 (3.6-5.0) mmol/L Chloride 105.1 (98-107) mmol/L Carbon Dioxide 21 L (22-30) mmol/L BUN 70 H (9-20) mg/dL Creatinine 4.7 H (0.8-1.5) mg/dL Glucose 103 H (75-100) mg/dL Calcium 8.6 (8.4-10.2) mg/dL <RICHIE SINGH - Last Filed: 04/14/19 11:18> Assessment and Plan As seen and evaluated the patient agree with the assessment and plan. The patient is admitted with acute on chronic systolic heart failure with history of nonischemic cardiomyopathy with ejection fraction of 20-25% and nuclear stress test showing no ischemia. At this time recommend continue maximal medical therapy for treatment of cardiomyopathy. Gentle diuresis as needed. Keep I's and O's neck negative. Recommended cessation of tobacco and cocaine use. Also recommended compliance with medical therapy. Objective Vital Signs Temp Pulse Resp BP Pulse Ox 04/14/19 08:12 98.5 F 71 18 124/79 97 04/14/19 05:14 98.3 F 04/14/19 05:11 68 18 127/85 95 04/13/19 22:56 98.3 F 04/13/19 22:54 73 20 132/79 97 04/13/19 22:00 75 04/13/19 20:31 97.9 F 04/13/19 20:03 68 18 125/76 96 04/13/19 18:00 64 04/13/19 17:51 97.5 F L 60 18 133/86 75 L 04/13/19 12:00 64 04/13/19 11:31 97.6 F 18 133/96 - Labs and Meds CBC 04/14/19 Range/Units 06:19 WBC 3.8 L (4.5-11.0) K/mm3 RBC 3.22 L (3.65-5.03) M/mm3 Hgb 10.6 L (11.8-15.2) gm/dl Hct 31.2 L (35.5-45.6) % Plt Count 238 (140-440) K/mm3 Lymph # 1.7 (1.2-5.4) K/mm3 [place] # 0.4 (0.0-0.8) K/mm3 Eos # 0.1 (0.0-0.4) K/mm3 Baso # 0.1 (0.0-0.1) K/mm3 Comprehensive Metabolic Panel 04/14/19 Range/Units 06:19 Sodium 138 (137-145) mmol/L Potassium 4.4 (3.6-5.0) mmol/L Chloride 105.1 (98-107) mmol/L Carbon Dioxide 21 L (22-30) mmol/L BUN 70 H (9-20) mg/dL Creatinine 4.7 H (0.8-1.5) mg/dL Glucose 103 H (75-100) mg/dL Calcium 8.6 (8.4-10.2) mg/dL
--- NOTE | 2019-04-14 10:46 | Progress Note ---
Assessment and Plan Assessment: Acute on chronic systolic CHF: Acute Kidney Injury possibly prerenal, cardiorenal syndrome, ? AIN, on underlying CKD likely due to HTN Non-Anion Gap Metabolic Acidosis Tobacco and cocaine abuse: Essential Hypertension Non-ischemic Cardiomyopathy: COPD Plan: - Renal function reviewed, SCr level was 4.7 today, yesterday's SCr level was 4.4, GFr 16 ml/min, stable - Calculated creatinine clearance- 16 ml/min - Possibly HUNTER on CKD, underlying CKD possibly due to HTN, pt could also have progression of underlying CKD due to uncontrolled HTN - Calculated protein cr ratio ~ 0.8 g, urine eosinophils positive at 3, questionable AIN - Will repeat urine eosinophils - GN/vasculitis work up in progress. So far Hep panel and HIV are negative - Poor candidate for renal biopsy given the fact that he may not be able to commit to treatments if required - Elevated PTH consistent with underlying CKD - Renal US showed no acute finding or hydronephrosis - Adjust BP medications as needed - Renally dose medications - Strict intake and output - White Catheter: No - Can discharge home from Nephrology standpoint as he is stable, patient is to follow-up with us in the office within 7 days of discharge Subjective Date of service: 04/14/19 Principal diagnosis: acute on chronic kidney failure Interval history: Patient waking in room. Reviewed renal labs and plan. Possible discharge home today. Objective - Vital Signs Vital signs: Vital Signs - 12hr 04/13/19 04/13/19 04/14/19 22:54 22:56 05:11 Temperature 98.3 F Pulse Rate 73 68 Respiratory 20 18 Rate Blood Pressure 132/79 127/85 O2 Sat by Pulse 97 95 Oximetry 04/14/19 04/14/19 05:14 08:12 Temperature 98.3 F 98.5 F Pulse Rate 71 Respiratory 18 Rate Blood Pressure 124/79 O2 Sat by Pulse 97 Oximetry - General Appearance General appearance: well-developed, appears stated age, fatigue EENT: ATNC, PERRL, hearing intact, vision intact Neck: no JVD, supple Respiratory: Present: Clear to Ascultation Cardiology: regular, S1S2 Gastrointestinal: normoactive bowel sounds Integumentary: warm and dry Neurologic: alert and oriented x3 Musculoskeletal: other (No edema) - Lab 04/14/19 06:19 04/14/19 06:19 Most recent lab results Calcium 8.6 mg/dL (8.4-10.2) 04/14/19 06:19 Phosphorus 5.00 mg/dL (2.5-4.5) H 04/10/19 16:25 Magnesium 1.90 mg/dL (1.7-2.3) 04/10/19 16:25 54.0 mg/dL (0.1-20.0) H 04/13/19 19:02 34 mmol/L 04/10/19 18:15 117 mg/dL (5-11.8) H 04/10/19 18:15 Medications & Allergies - Medications Allergies/Adverse Reactions: Allergies No Known Allergies Allergy (Verified 04/09/19 13:12) Home Medications: Home Medications Medication Instructions Recorded Confirmed Last Taken Type Aspirin [Aspirin BABY CHEW TAB] 81 mg PO QDAY #30 tab.chew 11/22/17 04/10/19 04/10/19 Rx Carvedilol [Coreg] 25 mg PO BID #30 tablet 11/22/17 04/10/19 04/10/19 Rx Pravastatin Sodium [Pravastatin] 20 mg PO QHS #60 tablet 11/22/17 04/10/19 04/10/19 Rx amLODIPine [Norvasc] 10 mg PO QDAY #30 tablet 11/22/17 04/10/19 04/10/19 Rx levETIRAcetam [Keppra TAB] 750 mg PO BID #60 tablet 11/22/17 04/10/19 04/10/19 Rx Active Medications: Generic Name Dose Route Start Last Admin Trade Name Freq PRN Reason Stop Dose Admin Acetaminophen 650 mg 04/09/19 20:13 Tylenol PO Q4H PRN Pain MILD(1-3)/Fever >100.5/TORIBIO Albuterol 2.5 mg 04/09/19 20:13 Proventil IH Q4HRT PRN Shortness Of Breath Amlodipine Besylate 10 mg 04/10/19 10:00 04/13/19 10:52 Norvasc PO 10 mg QDAY WILL Administration Carvedilol 25 mg 04/09/19 22:00 04/13/19 22:21 Coreg PO 25 mg BID WILL Administration Furosemide 40 mg 04/11/19 18:00 04/14/19 05:35 Lasix PO 40 mg 0600,1800 WILL Administration Heparin Sodium (Porcine) 5,000 unit 04/10/19 10:00 04/13/19 22:21 Heparin SUB-Q 5,000 unit Q12HR WILL Administration Hydralazine HCl 50 mg 04/11/19 12:00 04/14/19 05:34 Apresoline PO 50 mg Q8H WILL Administration Levetiracetam 750 mg 04/09/19 22:00 04/13/19 22:21 Keppra PO 750 mg BID WILL Administration Morphine Sulfate 2 mg 04/09/19 20:13 Morphine IV Q4H PRN Pain, Moderate (4-6) Ondansetron HCl 4 mg 04/09/19 20:13 Zofran IV Q8H PRN Nausea And Vomiting Oxycodone/Acetaminophen 1 tab 04/09/19 20:13 04/09/19 23:59 Percocet 5/325 PO 1 tab Q6H PRN Administration Pain, Moderate (4-6) Pravastatin Sodium 20 mg 04/09/19 22:00 04/13/19 22:20 Pravachol PO 20 mg QHS WILL Administration Sodium Chloride 10 ml 04/09/19 22:00 04/13/19 22:25 Sodium Chloride Flush Syringe 10 Ml IV Not Given BID WILL Sodium Chloride 10 ml 04/09/19 20:13 04/11/19 05:26 Sodium Chloride Flush Syringe 10 Ml IV 10 ml PRN PRN Administration LINE FLUSH
[2019-04-14] MEDS: NORVASC PO SCH (11:38)
[2019-04-14] MEDS: COREG PO SCH (11:38)
[2019-04-14] MEDS: KEPPRA PO SCH (11:38)
[2019-04-14] MEDS: SODIUM CHLORIDE FLUSH SYRINGE 10 ML IV SCH (11:39)
[2019-04-14] MEDS: HEPARIN SUB-Q SCH (11:39)
--- NOTE | 2019-04-14 13:30 | Discharge Summary ---
Providers - Providers Date of Admission: 04/09/19 20:13 Date of discharge: 04/14/19 Attending physician: ZINA PIÑA 04/10/19 06:47 Consult to Cardiology [CONS] Routine Consulting Provider: ALE SMITH Reason For Exam: CHF 04/10/19 06:54 Consult to Physician [CONS] Routine Comment: Consulting Provider: ROBERTO ANAYA Physician Instructions: Reason For Exam: ARF/CKD Primary care physician: [facility], Hospitalization Reason for admission: Acute hypoxic resp failure/Malignant Hypertension Condition: Stable Pertinent studies: CXR ECHO Renal US Bladder US Hospital course: This is a 58 y/o M with PMH of HTN, seizure disorder, nicotine dependence, systolic CHF, hyperlipidemia, and osteoarthritis who presented to [facility] ED with c/o worsening shortness of breath, SPANGLER, fatigue, weight gain (12 lbs), generalized weakness, decreased activity tolerance, urinary hesistancy, difficulty starting urine with feeling of incomplete emptying. Pt reported being non-compliant with his medications and cardiac diet. Pt denies taking diuretics at home. Pt admitted to ICU, started on IV lasix. On admission, SCr level was 3.3, Pt also found to have UDS + for cocaine, BNP was 27,264, BP was 211/143 on admission. Cardiology consulted for CHF. Patient admitted to ICU managed appropriately ,evaluated by Cardiology and nephrology,medications optimised. Transferred to the floor.Today pt is comfortable,no new complaints,vital signs stable,cleared by all the consultants for discharge Stable at discharge Discharge diagnosis --Malignant HTN (hypertension) BP was 211/143 on admission, status post NTG drip monitor bp q shift, supportive care, adjust BP meds as needed As needed hydralazine --Acute hypoxic Respiratory failure Due to CHF exacerbation, now resolved Continue IV diuresis, Supplemental oxygen, nebulizer therapy and NIPPV as clinically indicated, . --Acute on chronic CHFrEF exacerbation Admited to ICU, Cardiology consulted in ED, cont strict I/O, daily weight, diuresis, pulse oximetry, Follow repeat echo result -- ARF (acute renal failure) with tubular necrosis with possible underlying CKD Nephrology consulted, avoid nephrotoxic agents, Creatinine continued to decline, monitor renal function, -- Seizure disorder Continue Kebhavya, seizure precaution. --Tobacco abuse Smoking cessation counseling done, nicotine patch as needed --Cocaine abuse, counselled to stop -- DVT prophylaxis SCD to BLE while in bed, prophylactic heparin Stable at discharge Disposition: DC-01 TO HOME OR SELFCARE Time spent for discharge: 32 min Core Measure Documentation - Palliative Care Palliative Care/ Comfort Measures: Not Applicable - Core Measures Any of the following diagnoses?: heart failure - Heart Failure Discharge Requirements IRMA/ARB for LVSD if EF <40%: No Reason for no IRMA/ARB: Renal impairment Beta vish at discharge: Yes Exam - Constitutional Vitals: Temp Pulse Resp BP Pulse Ox 98.5 F 71 20 124/79 97 04/14/19 08:12 04/14/19 11:38 04/14/19 09:00 04/14/19 11:38 04/14/19 09:00 General appearance: Present: no acute distress, well-nourished - EENT Eyes: Present: PERRL, EOM intact - Neck Neck: Present: supple, normal ROM - Respiratory Respiratory effort: normal Respiratory: bilateral: diminished, rales, negative: rhonchi, wheezing - Cardiovascular Rhythm: regular Heart Sounds: Present: S1 & S2 - Extremities Extremities: no ischemia, No edema - Integumentary Integumentary: Present: clear, warm - Musculoskeletal Musculoskeletal: strength equal bilaterally - Psychiatric Psychiatric: appropriate mood/affect, cooperative - Neurologic Neurologic: moves all extremities Plan Activity: advance as tolerated Diet: other (cardiac diet) Special Instructions: smoking cessation Additional Instructions: Advised to comply with meds and f/u visits. Smoking ce ssation Follow up with: [facility] MD YOSELIN [Primary Care Provider] - 3-5 Days ALE SMITH MD [Staff Physician] - 7 Days ROBERTO ANAYA MD [Staff Physician] - 7 Days Prescriptions: RX: hydrALAZINE [Apresoline TAB] 50 mg PO Q8H #90 tablet RX: Carvedilol [Coreg] 25 mg PO BID #60 tablet RX: levETIRAcetam [Keppra TAB] 750 mg PO BID #60 tablet Furosemide [Lasix TAB] 40 mg PO QDAY #30 tablet RX: amLODIPine [Norvasc] 10 mg PO QDAY #30 tablet RX: Pravastatin Sodium [Pravastatin] 20 mg PO QHS #60 tablet
[2019-04-14 14:23] VITALS: BP 120/88
[2019-04-15 06:48] LABS: Albumin 2.7 g/dL (3.8-4.8); Gamma Globulin 1.1 g/dL (0.8-1.7)
[2019-04-16 10:18] LABS: Myeloperoxidase Antibody <1.0 AI (<1.0)
[2019-04-16 12:32] LABS: ANA Screen, IFA Negative (Negative)
== END 2019-04-14 15:22 | disposition home or self-care (01) | DRG 682 ==
LOC: ED 13:10 → 4A 20:13 → CC1 22:04 → 4A 04-10 14:41
PROVIDERS: ADMIT Internal Medicine; ATTEND Internal Medicine
DX: N17.0 Acute kidney failure with tubular necrosis (principal); J96.01 Acute respiratory failure with hypoxia; I50.23 Acute on chronic systolic (congestive) heart failure; J44.1 Chronic obstructive pulmonary disease with (acute) exacerbation; F17.213 Nicotine dependence, cigarettes, with withdrawal; I11.0 Hypertensive heart disease with heart failure; F14.10 Cocaine abuse, uncomplicated; E78.5 Hyperlipidemia, unspecified; G40.909 Epilepsy, unspecified, not intractable, without status epilepticus; F17.200 Nicotine dependence, unspecified, uncomplicated; E87.5 Hyperkalemia; D64.9 Anemia, unspecified; Z71.6 Tobacco abuse counseling; Z79.82 Long term (current) use of aspirin; Z79.899 Other long term (current) drug therapy; Z82.49 Family history of ischemic heart disease and other diseases of the circulatory system; Z91.19 Patient's noncompliance with other medical treatment and regimen
CPT/HCPCS: 36415; 71046; 76770; 76857; 80048; 80053; 80061; 80074; 80307; 81015; 82043; 82570; 83520; 83735; 83880; 83970; 84100; 84156; 84165; 84300; 84439; 84443; 84484; 85025; 85027; 86021; 86038; 86060; 86160; 86225; 86235; 86334; 87116; 87806; 89050; 93005; 93010; 93306; 94640; 94760; 96365; 96375; 99406; G0378; A9270-GY; J0360; J0692; J1644; J1940; J2930; J3475

== ENCOUNTER 2019-08-06 08:06 | Inpatient (IN) | payer OTHER ==
[2019-08-06] MEDS ORDERED: methylPREDNISolone Sod Succinate 125 MG/2 ML INJ IV ONE (08:36)
[2019-08-06] MEDS ORDERED: IPRATROPIUM 0.02% NEBU 2.5 ML IH ONE (08:36)
[2019-08-06] MEDS ORDERED: ALBUTEROL 2.5 MG/3 ML NEBU IH ONE (08:36)
[2019-08-06] MEDS ORDERED: hydrALAZINE 20 MG/1 ML INJ IV ONE (08:36)
[2019-08-06] MEDS ORDERED: FUROSEMIDE 40 MG/4 ML INJ IV ONE (08:36)
--- NOTE | 2019-08-06 09:13 | Emergency Department Report ---
ED Shortness of Breath HPI - General Chief Complaint: Dyspnea/Respdistress Stated Complaint: SOB Time Seen by Provider: 08/06/19 08:17 Source: patient, EMS Mode of arrival: Stretcher Limitations: No Limitations - History of Present Illness Initial Comments: Patient is a 58-year-old male presents to emergency room with complaints of shortness of breath that began a week ago. Patient states that his shortness of breath is worse with lying flat and worse with exertion. He states he can only take about 2-3 steps before feeling short of breath. Patient states he also has a frequent dry cough. He denies any chest pain, leg swelling, fever, hemoptysi s, productive cough. Patient has a past medical history of CHF and COPD. He was admitted in March 2019 and had an echo at that time which showed dilated cardiomyopathy with an EF of 20-25%. Patient states he has not taken any of his medications since March. He states he did not fill any of his medications that he was prescribed in March secondary to monetary issues. Patient does not have a primary care physician. He did not follow-up with anyone after being discharged from the hospital. Patient is an every day smoker and smokes proximally 3/4 ppd. He states he is also an occasional drinker and uses Crack cocaine and last used last night. pt was given nebulizer treatment and solumedrol by EMS. - Related Data Previous Rx's Medication Instructions Recorded Last Taken Type Aspirin [Aspirin BABY CHEW TAB] 81 mg PO QDAY #30 tab.chew 11/22/17 04/10/19 Rx Carvedilol [Coreg] 25 mg PO BID #60 tablet 04/14/19 Unknown Rx Furosemide [Lasix TAB] 40 mg PO QDAY #30 tablet 04/14/19 Unknown Rx Pravastatin Sodium [Pravastatin] 20 mg PO QHS #60 tablet 04/14/19 Unknown Rx amLODIPine 10 mg PO QDAY #30 tablet 04/14/19 Unknown Rx hydrALAZINE [Apresoline TAB] 50 mg PO Q8H #90 tablet 04/14/19 Unknown Rx levETIRAcetam [Keppra TAB] 750 mg PO BID #60 tablet 04/14/19 Unknown Rx Allergies Allergy/AdvReac Type Severity Reaction Status Date / Time No Known Allergies Allergy Verified 04/09/19 13:12 ED Review of Systems ROS: Stated complaint: SOB Other details as noted in HPI Comment: All other systems reviewed and negative ED Past Medical Hx - Past Medical History Hx Hypertension: Yes Hx Congestive Heart Failure: Yes Hx Arthritis: Yes (knees) Hx Seizures: Yes - Social History Smoking Status: Current Every Day Smoker Substance Use Type: Alcohol, Cocaine - Medications Home Medications: Home Medications Medication Instructions Recorded Confirmed Last Taken Type Aspirin [Aspirin BABY CHEW TAB] 81 mg PO QDAY #30 tab.chew 11/22/17 08/06/19 04/10/19 Rx Carvedilol [Coreg] 25 mg PO BID #60 tablet 04/14/19 08/06/19 Unknown Rx Furosemide [Lasix TAB] 40 mg PO QDAY #30 tablet 04/14/19 08/06/19 Unknown Rx Pravastatin Sodium [Pravastatin] 20 mg PO QHS #60 tablet 04/14/19 08/06/19 Unknown Rx amLODIPine 10 mg PO QDAY #30 tablet 04/14/19 08/06/19 Unknown Rx hydrALAZINE [Apresoline TAB] 50 mg PO Q8H #90 tablet 04/14/19 08/06/19 Unknown Rx levETIRAcetam [Keppra TAB] 750 mg PO BID #60 tablet 04/14/19 08/06/19 Unknown Rx ED Physical Exam - General Limitations: No Limitations General appearance: alert, in no apparent distress - Head Head exam: Present: atraumatic, normocephalic - Eye Eye exam: Present: normal appearance - ENT ENT exam: Present: mucous membranes moist - Respiratory Respiratory exam: Present: respiratory distress (mild), wheezes (bilaterally), rales (bilaterally), prolonged expiratory. Absent: rhonchi, stridor, chest wall tenderness, accessory muscle use, decreased breath sounds - Cardiovascular Cardiovascular Exam: Present: regular rate, normal rhythm - GI/Abdominal GI/Abdominal exam: Present: soft, normal bowel sounds. Absent: distended, tenderness, guarding, rebound, rigid - Extremities Exam Extremities exam: Absent: pedal edema - Neurological Exam Neurological exam: Present: alert, oriented X3 - Psychiatric Psychiatric exam: Present: normal affect, normal mood - Skin Skin exam: Present: warm, dry, intact ED Course Vital Signs 08/06/19 08/06/19 08/06/19 08:30 08:50 09:19 Temperature 98.4 F Pulse Rate 89 89 99 H Respiratory 20 24 Rate Blood Pressure 196/128 193/132 Blood Pressure 207/117 [Left] O2 Sat by Pulse 97 98 Oximetry 08/06/19 08/06/19 08/06/19 09:49 11:22 13:50 Temperature Pulse Rate 80 95 H 87 Respiratory 12 18 Rate Blood Pressure Blood Pressure 179/99 176/101 179/106 [Left] O2 Sat by Pulse 95 94 Oximetry - Consultations Consultation #1: 08/06/19 12:[address] Garcia, hospitalist who will accept and resume care of patient, will admit to the hospital, advised to bridge to telemetry ED Medical Decision Making - Lab Data Result diagrams: 08/09/19 05:35 08/09/19 05:35 Lab Results 08/06/19 08/06/19 08/06/19 Range/Units 08:40 08:40 08:40 WBC 5.1 (4.5-11.0) K/mm3 RBC 2.79 L (3.65-5.03) M/mm3 Hgb 9.4 L (11.8-15.2) gm/dl Hct 27.9 L (35.5-45.6) % MCV 100 H (84-94) fl MCH 34 H (28-32) pg MCHC 34 (32-34) % RDW 17.4 H (13.2-15.2) % Plt Count 282 (140-440) K/mm3 Lymph % (Auto) 15.5 (13.4-35.0) % Fannin % (Auto) 5.2 (0.0-7.3) % Eos % (Auto) 1.0 (0.0-4.3) % Baso % (Auto) 0.7 (0.0-1.8) % Lymph # 0.8 L (1.2-5.4) K/mm3 Fannin # 0.3 (0.0-0.8) K/mm3 Eos # 0.1 (0.0-0.4) K/mm3 Baso # 0.0 (0.0-0.1) K/mm3 Seg Neutrophils % 77.6 H (40.0-70.0) % Seg Neutrophils # 4.0 (1.8-7.7) K/mm3 PT 14.6 (12.2-14.9) Sec. INR 1.15 H (0.87-1.13) APTT 28.6 (24.2-36.6) Sec. Sodium 145 (137-145) mmol/L Potassium 4.9 (3.6-5.0) mmol/L Chloride 117.7 H (98-107) mmol/L Carbon Dioxide 14 L (22-30) mmol/L Anion Gap 18 mmol/L BUN 58 H (9-20) mg/dL Creatinine 5.5 H (0.8-1.5) mg/dL Estimated GFR 13 ml/min BUN/Creatinine Ratio 11 % Glucose 110 H (75-100) mg/dL Hemoglobin A1c (4-6) % Calcium 8.6 (8.4-10.2) mg/dL Phosphorus 4.80 H (2.5-4.5) mg/dL Magnesium 1.70 (1.7-2.3) mg/dL Total Bilirubin 0.20 (0.1-1.2) mg/dL AST 34 (5-40) units/L ALT 66 H (7-56) units/L Alkaline Phosphatase 135 H (35-129) units/L Troponin T 0.031 H (0.00-0.029) ng/mL NT-Pro-B Natriuret Pep 57437 H (0-900) pg/mL Total Protein 6.4 (6.3-8.2) g/dL Albumin 3.5 L (3.9-5) g/dL Albumin/Globulin Ratio 1.2 % Triglycerides 73 (2-149) mg/dL Cholesterol 113 (50-199) mg/dL LDL Cholesterol Direct 56 (50-130) mg/dL HDL Cholesterol 50 (40-59) mg/dL Cholesterol/HDL Ratio 2.26 % Lipase 23 (13-60) units/L Urine Color (Yellow) Urine Turbidity (Clear) Urine pH (5.0-7.0) Ur Specific Pike (1.003-1.030) Urine Protein (Negative) mg/dL Urine Glucose (UA) (Negative) mg/dL Urine Ketones (Negative) mg/dL Urine Blood (Negative) Urine Nitrite (Negative) Urine Bilirubin (Negative) Urine Urobilinogen (<2.0) mg/dL Ur Leukocyte Esterase (Negative) Urine WBC (Auto) (0.0-6.0) /HPF Urine RBC (Auto) (0.0-6.0) /HPF U Epithel Cells (Auto) (0-13.0) /HPF Urine Mucus /HPF Urine Opiates Screen Urine Methadone Screen Ur Barbiturates Screen Ur Phencyclidine Scrn Ur Amphetamines Screen U Benzodiazepines Scrn Urine Cocaine Screen U Marijuana (THC) Screen Drugs of Abuse Note 08/06/19 08/06/19 08/06/19 Range/Units 08:40 11:49 11:50 WBC (4.5-11.0) K/mm3 RBC (3.65-5.03) M/mm3 Hgb (11.8-15.2) gm/dl Hct (35.5-45.6) % MCV (84-94) fl MCH (28-32) pg MCHC (32-34) % RDW (13.2-15.2) % Plt Count (140-440) K/mm3 Lymph % (Auto) (13.4-35.0) % Fannin % (Auto) (0.0-7.3) % Eos % (Auto) (0.0-4.3) % Baso % (Auto) (0.0-1.8) % Lymph # (1.2-5.4) K/mm3 Fannin # (0.0-0.8) K/mm3 Eos # (0.0-0.4) K/mm3 Baso # (0.0-0.1) K/mm3 Seg Neutrophils % (40.0-70.0) % Seg Neutrophils # (1.8-7.7) K/mm3 PT (12.2-14.9) Sec. INR (0.87-1.13) APTT (24.2-36.6) Sec. Sodium (137-145) mmol/L Potassium (3.6-5.0) mmol/L Chloride (98-107) mmol/L Carbon Dioxide (22-30) mmol/L Anion Gap mmol/L BUN (9-20) mg/dL Creatinine (0.8-1.5) mg/dL Estimated GFR ml/min BUN/Creatinine Ratio % Glucose (75-100) mg/dL Hemoglobin A1c 4.8 (4-6) % Calcium (8.4-10.2) mg/dL Phosphorus (2.5-4.5) mg/dL Magnesium (1.7-2.3) mg/dL Total Bilirubin (0.1-1.2) mg/dL AST (5-40) units/L ALT (7-56) units/L Alkaline Phosphatase (35-129) units/L Troponin T 0.027 (0.00-0.029) ng/mL NT-Pro-B Natriuret Pep (0-900) pg/mL Total Protein (6.3-8.2) g/dL Albumin (3.9-5) g/dL Albumin/Globulin Ratio % Triglycerides (2-149) mg/dL Cholesterol (50-199) mg/dL LDL Cholesterol Direct (50-130) mg/dL HDL Cholesterol (40-59) mg/dL Cholesterol/HDL Ratio % Lipase (13-60) units/L Urine Color Straw (Yellow) Urine Turbidity Clear (Clear) Urine pH 5.0 (5.0-7.0) Ur Specific Pike 1.010 (1.003-1.030) Urine Protein 100 mg/dl (Negative) mg/dL Urine Glucose (UA) Neg (Negative) mg/dL Urine Ketones Neg (Negative) mg/dL Urine Blood Sm (Negative) Urine Nitrite Neg (Negative) Urine Bilirubin Neg (Negative) Urine Urobilinogen < 2.0 (<2.0) mg/dL Ur Leukocyte Esterase Neg (Negative) Urine WBC (Auto) < 1.0 (0.0-6.0) /HPF Urine RBC (Auto) 2.0 (0.0-6.0) /HPF U Epithel Cells (Auto) 1.0 (0-13.0) /HPF Urine Mucus Few /HPF Urine Opiates Screen Urine Methadone Screen Ur Barbiturates Screen Ur Phencyclidine Scrn Ur Amphetamines Screen U Benzodiazepines Scrn Urine Cocaine Screen U Marijuana (THC) Screen Drugs of Abuse Note 08/06/19 Range/Units 11:50 WBC (4.5-11.0) K/mm3 RBC (3.65-5.03) M/mm3 Hgb (11.8-15.2) gm/dl Hct (35.5-45.6) % MCV (84-94) fl MCH (28-32) pg MCHC (32-34) % RDW (13.2-15.2) % Plt Count (140-440) K/mm3 Lymph % (Auto) (13.4-35.0) % Fannin % (Auto) (0.0-7.3) % Eos % (Auto) (0.0-4.3) % Baso % (Auto) (0.0-1.8) % Lymph # (1.2-5.4) K/mm3 Fannin # (0.0-0.8) K/mm3 Eos # (0.0-0.4) K/mm3 Baso # (0.0-0.1) K/mm3 Seg Neutrophils % (40.0-70.0) % Seg Neutrophils # (1.8-7.7) K/mm3 PT (12.2-14.9) Sec. INR (0.87-1.13) APTT (24.2-36.6) Sec. Sodium (137-145) mmol/L Potassium (3.6-5.0) mmol/L Chloride (98-107) mmol/L Carbon Dioxide (22-30) mmol/L Anion Gap mmol/L BUN (9-20) mg/dL Creatinine (0.8-1.5) mg/dL Estimated GFR ml/min BUN/Creatinine Ratio % Glucose (75-100) mg/dL Hemoglobin A1c (4-6) % Calcium (8.4-10.2) mg/dL Phosphorus (2.5-4.5) mg/dL Magnesium (1.7-2.3) mg/dL Total Bilirubin (0.1-1.2) mg/dL AST (5-40) units/L ALT (7-56) units/L Alkaline Phosphatase (35-129) units/L Troponin T (0.00-0.029) ng/mL NT-Pro-B Natriuret Pep (0-900) pg/mL Total Protein (6.3-8.2) g/dL Albumin (3.9-5) g/dL Albumin/Globulin Ratio % Triglycerides (2-149) mg/dL Cholesterol (50-199) mg/dL LDL Cholesterol Direct (50-130) mg/dL HDL Cholesterol (40-59) mg/dL Cholesterol/HDL Ratio % Lipase (13-60) units/L Urine Color (Yellow) Urine Turbidity (Clear) Urine pH (5.0-7.0) Ur Specific Pike (1.003-1.030) Urine Protein (Negative) mg/dL Urine Glucose (UA) (Negative) mg/dL Urine Ketones (Negative) mg/dL Urine Blood (Negative) Urine Nitrite (Negative) Urine Bilirubin (Negative) Urine Urobilinogen (<2.0) mg/dL Ur Leukocyte Esterase (Negative) Urine WBC (Auto) (0.0-6.0) /HPF Urine RBC (Auto) (0.0-6.0) /HPF U Epithel Cells (Auto) (0-13.0) /HPF Urine Mucus /HPF Urine Opiates Screen Presumptive negative Urine Methadone Screen Presumptive negative Ur Barbiturates Screen Presumptive negative Ur Phencyclidine Scrn Presumptive negative Ur Amphetamines Screen Presumptive negative U Benzodiazepines Scrn Presumptive negative Urine Cocaine Screen Presumptive positive U Marijuana (THC) Screen Presumptive negative Drugs of Abuse Note Disclamer - Radiology Data Radiology results: report reviewed CHEST 1 VIEW INDICATION / CLINICAL INFORMATION: SOB. COMPARISON: 04/09/2019 FINDINGS: SUPPORT DEVICES: None. HEART / MEDIASTINUM: Heart size is at the upper limit of normal LUNGS / PLEURA: Obliquely oriented linear densities in the right lower lung and right upper lung are again identified, slightly more prominent. No pneumothorax. ADDITIONAL FINDINGS: Degenerative changes in both AC joints noted. IMPRESSION: 1. Increasing opacities in the right lung that appear to represent focal atelectasis. Signer Name: Denny Bronson MD Signed: 08/06/2019 10:40 AM Workstation Name: [id number] Transcribed By: GA Dictated By: Denny Bronson MD Electronically Authenticated By: Denny Bronson MD Signed Date/Time: 08/06/19 1040 DD/ 1037 TD/TT: - Medical Decision Making Patient is a 58-year-old male presents to emergency room with complaints of shortness of breath that began a week ago. Patient states that his shortness of breath is worse with lying flat and worse with exertion. He states he can only take about 2-3 steps before feeling short of breath. Patient states he also has a frequent dry cough. He denies any chest pain, leg swelling, fever, hemoptysis, productive cough. Patient has a past medical history of CHF and COPD. He was admitted in March 2019 and had an echo at that time which showed dilated cardiomyopathy with an EF of 20-25%. Patient states he has not taken any of his medications since March. He states he did not fill any of his medications that he was prescribed in March secondary to monetary issues. Patient does not have a primary care physician. He did not follow-up with anyone after being discharged from the hospital. Patient is an every day smoker and smokes proximally 3/4 ppd. He states he is also an occasional drinker and uses Crack cocaine and last used last night. pt was given nebulizer treatment and solumedrol by EMS. vitals with elevated BP otherwise stable. pt given hydralazine and BP improved. CXR: 1. Increasing opacities in the right lung that appear to represent focal atelectasis. labs with anemia present with H/H 9.4/27.9, Cr 5.5, GFR 13, [place] [id number]. Patient is presenting with acute on chronic heart failure and acute on chronic renal failure. spoke with Dr. Garcia, hospitalist who will accept and resume care of patient, will admit to the hospital, advised to bridge to telemetry. - Differential Diagnosis ACS, PE, acute on CHF, valvular dysfunction, COPD, medication noncompliance Critical care attestation.: If time is entered above; I have spent that time in minutes in the direct care of this critically ill patient, excluding procedure time. ED Disposition Clinical Impression: Cocaine abuse Acute exacerbation of CHF (congestive heart failure) Qualifiers: Heart failure type: combined systolic and diastolic Qualified Code(s): I50.43 - Acute on chronic combined systolic (congestive) and diastolic (congestive) heart failure Acute renal failure superimposed on chronic kidney disease Qualifiers: Acute renal failure type: unspecified Chronic kidney disease stage: unspecified stage Qualified Code(s): N17.9 - Acute kidney failure, unspecified Anemia Qualifiers: Anemia type: unspecified type Qualified Code(s): D64.9 - Anemia, unspecified HTN (hypertension) Qualifiers: Hypertension type: unspecified Qualified Code(s): I10 - Essential (primary) hypertension Disposition: OP ADMIT IP TO THIS HOSP Is pt being admited?: Yes Does the pt Need Aspirin: No Condition: Stable
[2019-08-06 09:15] LABS: Basophils % (Auto) 0.7 % (0.0-1.8); Eosinophils # (Auto) 0.1 K/mm3 (0.0-0.4); Hematocrit 27.9 % (35.5-45.6); Hemoglobin 9.4 gm/dl (11.8-15.2); Lymphocytes # (Auto) 0.8 K/mm3 (1.2-5.4); Lymphocytes % (Auto) 15.5 % (13.4-35.0); Mean Corpuscular HGB Conc 34 % (32-34); Mean Corpuscular Volume 100 fl (84-94); Monocytes # (Auto) 0.3 K/mm3 (0.0-0.8); Monocytes % (Auto) 5.2 % (0.0-7.3); Platelet Count 282 K/mm3 (140-440); Red Blood Count 2.79 M/mm3 (3.65-5.03); Red Cell Distribution Width 17.4 % (13.2-15.2)
[2019-08-06 09:24] LABS: INR 1.15 (0.87-1.13)
[2019-08-06 09:25] LABS: Partial Thromboplastin Time 28.6 Sec. (24.2-36.6)
[2019-08-06 10:10] LABS: Albumin 3.5 g/dL (3.9-5); Calcium 8.6 mg/dL (8.4-10.2)
--- NOTE | 2019-08-06 10:44 | XRay Report ---
CHEST 1 VIEW INDICATION / CLINICAL INFORMATION: SOB. COMPARISON: 04/09/2019 FINDINGS: SUPPORT DEVICES: None. HEART / MEDIASTINUM: Heart size is at the upper limit of normal LUNGS / PLEURA: Obliquely oriented linear densities in the right lower lung and right upper lung are again identified, slightly more prominent. No pneumothorax. ADDITIONAL FINDINGS: Degenerative changes in both AC joints noted. IMPRESSION: 1. Increasing opacities in the right lung that appear to represent focal atelectasis. Signer Name: Denny Bronson MD Signed: 08/06/2019 10:40 AM Workstation Name: [id number]
[2019-08-06 10:48] LABS: Chol/HDL Ratio 2.26 %
[2019-08-06 12:21] LABS: Bilirubin,Urine NEG (Negative); Blood,Urine SM (Negative); Color,Urine Straw (Yellow); Mucus,Urine FEW /HPF; Urobilinogen,Urine < 2.0 mg/dL (<2.0); WBC,Urine < 1.0 /HPF (0.0-6.0)
[2019-08-06 12:28] LABS: Amphetamine Screen,Urine PRESUMPTIVE NEGATIVE; Benzodiazepines Screen,Urine PRESUMPTIVE NEGATIVE; Cannabinoid Screen,Urine PRESUMPTIVE NEGATIVE; Methadone Screen,Urine PRESUMPTIVE NEGATIVE; Opiate Screen,Urine PRESUMPTIVE NEGATIVE
[2019-08-06 12:40] LABS: Cocaine Screen,Urine PRESUMPTIVE POSITIVE
--- NOTE | 2019-08-06 21:24 | History and Physical Report ---
History of Present Illness Date of examination: 08/06/19 Date of admission: 08/06/19 13:47 Chief complaint: Increasing CHF for one week. History of present illness: 58-year-old male presents to emergency room with complaints of shortness of breath that began a week ago. Patient states that his shortness of breath is worse with lying flat and worse with exertion. He states he can only take about 2-3 steps before feeling short of breath. Patient states he also has a frequent dry cough. He denies any chest pain, leg swelling, fever, hemoptysis, productive cough. Patient has a past medical history of CHF and COPD. He was admitted in March 2019 and had an echo at that time which showed dilated cardiomyopathy with an EF of 20-25%. Patient states he has not taken any of his medications since March. He states he did not fill any of his medications that he was prescribed in March secondary to monetary issues. Patient does not have a primary care physician. He did not follow-up with anyone after being discharged from the hospital. Patient is an every day smoker and smokes proximally 3/4 ppd. He states he is also an occasional drinker and uses Crack cocaine and last used last night. pt was given nebulizer treatment and solumedrol by EMS. Past Medical History Hypertension: Yes Congestive Heart Failure: Yes Arthritis: Yes (knees) Seizures: Yes Past Surgical History No Social History Smoking Status: Current Every Day Smoker Substance Use Type: Alcohol, Cocaine Family History Htn Medications Home Medications: Home Medications Medication Instructions Recorded Confirmed Last Taken Type Aspirin [Aspirin BABY CHEW TAB] 81 mg PO QDAY #30 tab.chew 11/22/17 04/10/19 04/10/19 Rx Carvedilol [Coreg] 25 mg PO BID #60 tablet 04/14/19 Unknown Rx Furosemide [Lasix TAB] 40 mg PO QDAY #30 tablet 04/14/19 Unknown Rx Pravastatin Sodium [Pravastatin] 20 mg PO QHS #60 tablet 04/14/19 Unknown Rx amLODIPine 10 mg PO QDAY #30 tablet 04/14/19 Unknown Rx hydrALAZINE [Apresoline TAB] 50 mg PO Q8H #90 tablet 04/14/19 Unknown Rx levETIRAcetam [Keppra TAB] 750 mg PO BID #60 tablet 04/14/19 Unknown Rx Review of Systems ROS: Stated complaint: SOB Other details as noted in HPI Comment: All other systems reviewed and negative Medications and Allergies Allergies Allergy/AdvReac Type Severity Reaction Status Date / Time No Known Allergies Allergy Verified 04/09/19 13:12 Home Medications Medication Instructions Recorded Confirmed Last Taken Type Aspirin [Aspirin BABY CHEW TAB] 81 mg PO QDAY #30 tab.chew 11/22/17 08/06/19 04/10/19 Rx Carvedilol [Coreg] 25 mg PO BID #60 tablet 04/14/19 08/06/19 Unknown Rx Furosemide [Lasix TAB] 40 mg PO QDAY #30 tablet 04/14/19 08/06/19 Unknown Rx Pravastatin Sodium [Pravastatin] 20 mg PO QHS #60 tablet 04/14/19 08/06/19 Unkno wn Rx amLODIPine 10 mg PO QDAY #30 tablet 04/14/19 08/06/19 Unknown Rx hydrALAZINE [Apresoline TAB] 50 mg PO Q8H #90 tablet 04/14/19 08/06/19 Unknown Rx levETIRAcetam [Keppra TAB] 750 mg PO BID #60 tablet 04/14/19 08/06/19 Unknown Rx Exam - Constitutional Vitals: Temp Pulse Resp BP Pulse Ox 98.4 F 99 H 18 180/98 96 08/06/19 16:21 08/06/19 16:21 08/06/19 16:21 08/06/19 16:21 08/06/19 16:21 General appearance: Present: no acute distress, well-nourished - EENT Eyes: Present: PERRL ENT: hearing intact, clear oral mucosa - Neck Neck: Present: supple, normal ROM - Respiratory Respiratory effort: normal Respiratory: bilateral: CTA, rales - Cardiovascular Heart rate: 98 Rhythm: regular Heart Sounds: Present: S1 & S2. Absent: rub, click - Extremities Extremities: no ischemia, pulses intact, pulses symmetrical, No edema Extremity abnormal: edema (2 plus) Peripheral Pulses: within normal limits - Abdominal General gastrointestinal: Present: soft, non-tender, non-distended, normal bowel sounds Male genitourinary: Present: normal - Rectal Rectal Exam: deferred - Integumentary Integumentary: Present: clear, warm, dry - Musculoskeletal Musculoskeletal: gait normal, strength equal bilaterally - Psychiatric Psychiatric: appropriate mood/affect, intact judgment & insight - Neurologic Neurologic: CNII-XII intact, moves all extremities - Allied Health Allied health notes reviewed: nursing, case management Results - Labs CBC & Chem 7: 08/07/19 03:29 08/07/19 03:29 Labs: Laboratory Last Values WBC 5.1 K/mm3 (4.5-11.0) 08/06/19 08:40 RBC 2.79 M/mm3 (3.65-5.03) L 08/06/19 08:40 Hgb 9.4 gm/dl (11.8-15.2) L 08/06/19 08:40 Hct 27.9 % (35.5-45.6) L 08/06/19 08:40 MCV 100 fl (84-94) H 08/06/19 08:40 MCH 34 pg (28-32) H 08/06/19 08:40 MCHC 34 % (32-34) 08/06/19 08:40 RDW 17.4 % (13.2-15.2) H 08/06/19 08:40 Plt Count 282 K/mm3 (140-440) 08/06/19 08:40 Lymph % (Auto) 15.5 % (13.4-35.0) 08/06/19 08:40 [place] % (Auto) 5.2 % (0.0-7.3) 08/06/19 08:40 Eos % (Auto) 1.0 % (0.0-4.3) 08/06/19 08:40 Baso % (Auto) 0.7 % (0.0-1.8) 08/06/19 08:40 Lymph # 0.8 K/mm3 (1.2-5.4) L 08/06/19 08:40 [place] # 0.3 K/mm3 (0.0-0.8) 08/06/19 08:40 Eos # 0.1 K/mm3 (0.0-0.4) 08/06/19 08:40 Baso # 0.0 K/mm3 (0.0-0.1) 08/06/19 08:40 Seg Neutrophils % 77.6 % (40.0-70.0) H 08/06/19 08:40 Seg Neutrophils # 4.0 K/mm3 (1.8-7.7) 08/06/19 08:40 PT 14.6 Sec. (12.2-14.9) 08/06/19 08:40 INR 1.15 (0.87-1.13) H 08/06/19 08:40 APTT 28.6 Sec. (24.2-36.6) 08/06/19 08:40 Sodium 145 mmol/L (137-145) 08/06/19 08:40 Potassium 4.9 mmol/L (3.6-5.0) 08/06/19 08:40 Chloride 117.7 mmol/L (98-107) H 08/06/19 08:40 Carbon Dioxide 14 mmol/L (22-30) L 08/06/19 08:40 Anion Gap 18 mmol/L 08/06/19 08:40 BUN 58 mg/dL (9-20) H 08/06/19 08:40 Creatinine 5.5 mg/dL (0.8-1.5) H 08/06/19 08:40 Estimated GFR 13 ml/min 08/06/19 08:40 BUN/Creatinine Ratio 11 % 08/06/19 08:40 Glucose 110 mg/dL (75-100) H 08/06/19 08:40 Calcium 8.6 mg/dL (8.4-10.2) 08/06/19 08:40 Phosphorus 4.80 mg/dL (2.5-4.5) H 08/06/19 08:40 Magnesium 1.70 mg/dL (1.7-2.3) 08/06/19 08:40 Total Bilirubin 0.20 mg/dL (0.1-1.2) 08/06/19 08:40 AST 34 units/L (5-40) 08/06/19 08:40 ALT 66 units/L (7-56) H 08/06/19 08:40 Alkaline Phosphatase 135 units/L (35-129) H 08/06/19 08:40 Troponin T 0.027 ng/mL (0.00-0.029) 08/06/19 11:49 NT-Pro-B Natriuret Pep 70221 pg/mL (0-900) H 08/06/19 08:40 Total Protein 6.4 g/dL (6.3-8.2) 08/06/19 08:40 Albumin 3.5 g/dL (3.9-5) L 08/06/19 08:40 Albumin/Globulin Ratio 1.2 % 08/06/19 08:40 Triglycerides 73 mg/dL (2-149) 08/06/19 08:40 Cholesterol 113 mg/dL (50-199) 08/06/19 08:40 LDL Cholesterol Direct 56 mg/dL (50-130) 08/06/19 08:40 HDL Cholesterol 50 mg/dL (40-59) 08/06/19 08:40 Cholesterol/HDL Ratio 2.26 % 08/06/19 08:40 Lipase 23 units/L (13-60) 08/06/19 08:40 Urine Color Straw (Yellow) 08/06/19 11:50 Urine Turbidity Clear (Clear) 08/06/19 11:50 Urine pH 5.0 (5.0-7.0) 08/06/19 11:50 Ur Specific [place] 1.010 (1.003-1.030) 08/06/19 11:50 Urine Protein 100 mg/dl mg/dL (Negative) 08/06/19 11:50 Urine Glucose (UA) Neg mg/dL (Negative) 08/06/19 11:50 Urine Ketones Neg mg/dL (Negative) 08/06/19 11:50 Urine Blood Sm (Negative) 08/06/19 11:50 Urine Nitrite Neg (Negative) 08/06/19 11:50 Urine Bilirubin Neg (Negative) 08/06/19 11:50 Urine Urobilinogen < 2.0 mg/dL (<2.0) 08/06/19 11:50 Ur Leukocyte Esterase Neg (Negative) 08/06/19 11:50 Urine WBC (Auto) < 1.0 /HPF (0.0-6.0) 08/06/19 11:50 Urine RBC (Auto) 2.0 /HPF (0.0-6.0) 08/06/19 11:50 U Epithel Cells (Auto) 1.0 /HPF (0-13.0) 08/06/19 11:50 Urine Mucus Few /HPF 08/06/19 11:50 Urine Opiates Screen Presumptive negative 08/06/19 11:50 Urine Methadone Screen Presumptive negative 08/06/19 11:50 Ur Barbiturates Screen Presumptive negative 08/06/19 11:50 Ur Phencyclidine Scrn Presumptive negative 08/06/19 11:50 Ur Amphetamines Screen Presumptive negative 08/06/19 11:50 U Benzodiazepines Scrn Presumptive negative 08/06/19 11:50 Urine Cocaine Screen Presumptive positive 08/06/19 11:50 U Marijuana (THC) Screen Presumptive negative 08/06/19 11:50 Drugs of Abuse Note Disclamer 08/06/19 11:50 - Imaging and Cardiology EKG: report reviewed Chest x-ray: report reviewed Imaging and Cardiology: CXR LUNGS / PLEURA: Obliquely oriented linear densities in the right lower lung and right upper lung are again identified, slightly more prominent. No pneumothorax. ADDITIONAL FINDINGS: Degenerative changes in both AC joints noted. IMPRESSION: 1. Increasing opacities in the right lung that appear to represent focal atelectasis. Assessment and Plan Advance Directives: Yes (Full code) VTE prophylaxis?: Chemical Plan of care discussed with patient/family: Yes - Patient Problems (1) CHF exacerbation Current Visit: Yes Status: Acute Qualifiers: Heart failure type: combined systolic and diastolic Qualified Code(s): I50.43 - Acute on chronic combined systolic (congestive) and diastolic (congestive) heart failure Plan to address problem: Daily weights I/o IV ChF 40 mg q12 KCL 20 q12h (2) HTN (hypertension) Current Visit: Yes Status: Acute Qualifiers: Hypertension type: unspecified Qualified Code(s): I10 - Essential (primary) hypertension Plan to address problem: Cont antihypertensives (3) HLD (hyperlipidemia) Current Visit: No Status: Chronic Qualifiers: Hyperlipidemia type: mixed hyperlipidemia Qualified Code(s): E78.2 - Mixed hyperlipidemia Plan to address problem: COnt Statins (4) Seizure disorder Current Visit: No Status: Chronic Plan to address problem: COnt Keppra (5) DVT prophylaxis Current Visit: No Status: Acute Plan to address problem: Lovenox and GI prophylaxis
[2019-08-06] MEDS ORDERED: HYDROmorphone 1 MG/1 ML INJ IV PRN (21:25)
[2019-08-06] MEDS ORDERED: ONDANSETRON 4 MG/2 ML INJ IV PRN (21:25)
[2019-08-06] MEDS ORDERED: METOCLOPRAMIDE 10 MG/2 ML INJ IV PRN ×2 (21:25→21:34)
[2019-08-06] MEDS ORDERED: ACETAMINOPHEN 325 MG TAB PO PRN (21:25)
[2019-08-06] MEDS: ASPIRIN 81 MG TAB CHEW PO SCH (21:52)
[2019-08-06] MEDS: amLODIPine 10 MG TAB PO SCH (21:52)
[2019-08-06] MEDS: FAMOTIDINE 10 MG TAB PO SCH (21:52)
[2019-08-06] MEDS: carvediloL 25 MG TAB PO SCH (21:52)
[2019-08-06] MEDS: levETIRAcetam 500 MG/5 ML ORAL LIQD PO SCH (21:53)
[2019-08-06] MEDS: PRAVASTATIN 20 MG TAB PO SCH (21:53)
[2019-08-06] MEDS: oxyCODONE /ACETAMINOPHEN 5-325MG TAB PO PRN (21:53)
[2019-08-06] MEDS: hydrALAZINE 25 MG TAB PO SCH (21:53)
[2019-08-06] MEDS ORDERED: NON-FORMULARY EACH (Levetiracetam [Keppra Tab] 750 MG) PO SCH (22:00)
[2019-08-06] MEDS ORDERED: FAMOTIDINE 20 MG TAB PO SCH (22:00)
[2019-08-06] MEDS ORDERED: POTASSIUM CHLORIDE ER 20 MEQ TAB PO SCH (22:00)
[2019-08-06] MEDS ORDERED: FUROSEMIDE 40 MG TAB PO SCH (22:00)
[2019-08-06] MEDS ORDERED: NON-FORMULARY EACH (Pravastatin Sodium [Pravastatin] 20 MG) PO SCH (22:00)
[2019-08-07 04:39] LABS: Basophils % (Auto) 0.4 % (0.0-1.8); Eosinophils % (Auto) 0.1 % (0.0-4.3); Hematocrit 25.8 % (35.5-45.6); Hemoglobin 8.7 gm/dl (11.8-15.2); Lymphocytes # (Auto) 0.9 K/mm3 (1.2-5.4); Mean Corpuscular HGB Conc 34 % (32-34); Mean Corpuscular Volume 100 fl (84-94); Monocytes # (Auto) 0.5 K/mm3 (0.0-0.8); Monocytes % (Auto) 6.5 % (0.0-7.3); Platelet Count 229 K/mm3 (140-440); Red Blood Count 2.58 M/mm3 (3.65-5.03)
[2019-08-07 05:04] LABS: Alanine Aminotransferase 48 units/L (7-56); Albumin 3.2 g/dL (3.9-5); BUN/Creatinine Ratio 11; Blood Urea Nitrogen 63 mg/dL (9-20); Calcium 8.3 mg/dL (8.4-10.2); Hemolysis Index 5
[2019-08-07] MEDS: FUROSEMIDE 40 MG/4 ML INJ IV SCH ×2 (06:34→17:13)
[2019-08-07] MEDS: hydrALAZINE 25 MG TAB PO SCH ×3 (06:34→21:11)
[2019-08-07] MEDS: levETIRAcetam 500 MG/5 ML ORAL LIQD PO SCH ×2 (10:13→21:07)
[2019-08-07] MEDS: FAMOTIDINE 10 MG TAB PO SCH ×2 (10:14→21:07)
[2019-08-07] MEDS: amLODIPine 10 MG TAB PO SCH (10:14)
[2019-08-07] MEDS: carvediloL 25 MG TAB PO SCH ×2 (10:14→21:07)
[2019-08-07] MEDS: ASPIRIN 81 MG TAB CHEW PO SCH (10:14)
[2019-08-07] MEDS ORDERED: SODIUM POLYSTYRENE 15 GM/60 ML ORAL LIQD PO ONE (12:20)
--- NOTE | 2019-08-07 12:30 | Progress Note ---
Assessment and Plan Assessment and plan: Patient is 58 yo man with a history of HTN, OA, Sz, tobacco dependency, CHF, CKD alcohol and cocaine abuse who presented to [facility] ED with SOB. He was admitted for CHF exacerbation due to non-compliance. * TTE Conclusions: 4 chambers dilated CM, global left ventricular systolic function is severely decreased, estimated EF 20-25%, moderate concentric Left Ventricular hyperthropathy, mild to moderate MR, mild AR, mild to moderate TR, moderate pulmonary hypertension, RVSP is calculated at 45 mmHg. Acute on chronic systolic heart failure: consult Cardiology, difficult decision regarding diuretics as patient is in ARF, will consult Nephrology Hyperkalemia: treat with kayexalate HUNTER/CKD 3, vasomotor nephropathy, patient last Cr was 4.7 on 04/14/19, now 5.7. UDS positive for Cocaine: Counseling done. 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 Follow-up on current diagnosis of CHF. No overnight events reported to me. Patient denies any chest pain, nausea/vomiting or severe headaches. Imaging, nursing note, chart, labs and old chart reviewed. Discussed with patient. Hospitalist Physical - Physical exam Narrative exam: Gen: WDWN, NAD, Awake, Alert, Orientated HEENT: NCAT, EOMI, PERRL, OP Clear Neck: supple, no adenopathy, no thyromegaly, no JVD CVS/Heart: RRR, normal S1S2, pulses present bilaterally Chest/Lungs: diminished bs bilateral, Symmetrical chest expansion, good air entry bilaterally GI/Abdomen: soft, NTND, good bowel sounds, no guarding or rebound /Bladder: no suprapubic tenderness, no CVA or paraspinal tenderness Extermity/Skin: no c/c/e, no obvious rash MSK: FROM x 4 Neuro: CN 2-12 grossly intact, no new focal deficits Psych: calm - Constitutional Vitals: Temp Pulse Resp BP Pulse Ox 98.4 F 89 18 155/104 97 08/07/19 07:44 08/07/19 12:25 08/07/19 07:44 08/07/19 07:44 08/07/19 04:31 General appearance: Present: no acute distress, well-nourished Results - Labs CBC & Chem 7: 08/07/19 03:29 08/07/19 03:29 Labs: Laboratory Last Values WBC 7.4 K/mm3 (4.5-11.0) 08/07/19 03:29 RBC 2.58 M/mm3 (3.65-5.03) L 08/07/19 03:29 Hgb 8.7 gm/dl (11.8-15.2) L 08/07/19 03:29 Hct 25.8 % (35.5-45.6) L 08/07/19 03:29 MCV 100 fl (84-94) H 08/07/19 03:29 MCH 34 pg (28-32) H 08/07/19 03:29 MCHC 34 % (32-34) 08/07/19 03:29 RDW 17.0 % (13.2-15.2) H 08/07/19 03:29 Plt Count 229 K/mm3 (140-440) 08/07/19 03:29 Lymph % (Auto) 12.0 % (13.4-35.0) L 08/07/19 03:29 [place] % (Auto) 6.5 % (0.0-7.3) 08/07/19 03:29 Eos % (Auto) 0.1 % (0.0-4.3) 08/07/19 03:29 Baso % (Auto) 0.4 % (0.0-1.8) 08/07/19 03:29 Lymph # 0.9 K/mm3 (1.2-5.4) L 08/07/19 03:29 [place] # 0.5 K/mm3 (0.0-0.8) 08/07/19 03:29 Eos # 0.0 K/mm3 (0.0-0.4) 08/07/19 03:29 Baso # 0.0 K/mm3 (0.0-0.1) 08/07/19 03:29 Seg Neutrophils % 81.0 % (40.0-70.0) H 08/07/19 03:29 Seg Neutrophils # 6.0 K/mm3 (1.8-7.7) 08/07/19 03:29 PT 14.6 Sec. (12.2-14.9) 08/06/19 08:40 INR 1.15 (0.87-1.13) H 08/06/19 08:40 APTT 28.6 Sec. (24.2-36.6) 08/06/19 08:40 Sodium 143 mmol/L (137-145) 08/07/19 03:29 Potassium 5.5 mmol/L (3.6-5.0) H 08/07/19 03:29 Chloride 116.8 mmol/L (98-107) H 08/07/19 03:29 Carbon Dioxide 15 mmol/L (22-30) L 08/07/19 03:29 Anion Gap 17 mmol/L 08/07/19 03:29 BUN 63 mg/dL (9-20) H 08/07/19 03:29 Creatinine 5.7 mg/dL (0.8-1.5) H 08/07/19 03:29 Estimated GFR 12 ml/min 08/07/19 03:29 BUN/Creatinine Ratio 11 % 08/07/19 03:29 Glucose 108 mg/dL (75-100) H 08/07/19 03:29 Hemoglobin A1c 4.8 % (4-6) 08/06/19 08:40 Calcium 8.3 mg/dL (8.4-10.2) L 08/07/19 03:29 Phosphorus 4.80 mg/dL (2.5-4.5) H 08/06/19 08:40 Magnesium 1.70 mg/dL (1.7-2.3) 08/06/19 08:40 Total Bilirubin < 0.20 mg/dL (0.1-1.2) 08/07/19 03:29 AST 17 units/L (5-40) 08/07/19 03:29 ALT 48 units/L (7-56) 08/07/19 03:29 Alkaline Phosphatase 126 units/L (35-129) 08/07/19 03:29 Troponin T 0.027 ng/mL (0.00-0.029) 08/06/19 11:49 NT-Pro-B Natriuret Pep 25973 pg/mL (0-900) H 08/06/19 08:40 Total Protein 5.7 g/dL (6.3-8.2) L 08/07/19 03:29 Albumin 3.2 g/dL (3.9-5) L 08/07/19 03:29 Albumin/Globulin Ratio 1.3 % 08/07/19 03:29 Triglycerides 73 mg/dL (2-149) 08/06/19 08:40 Cholesterol 113 mg/dL (50-199) 08/06/19 08:40 LDL Cholesterol Direct 56 mg/dL (50-130) 08/06/19 08:40 HDL Cholesterol 50 mg/dL (40-59) 08/06/19 08:40 Cholesterol/HDL Ratio 2.26 % 08/06/19 08:40 Lipase 23 units/L (13-60) 08/06/19 08:40 Urine Color Straw (Yellow) 08/06/19 11:50 Urine Turbidity Clear (Clear) 08/06/19 11:50 Urine pH 5.0 (5.0-7.0) 08/06/19 11:50 Ur Specific [place] 1.010 (1.003-1.030) 08/06/19 11:50 Urine Protein 100 mg/dl mg/dL (Negative) 08/06/19 11:50 Urine Glucose (UA) Neg mg/dL (Negative) 08/06/19 11:50 Urine Ketones Neg mg/dL (Negative) 08/06/19 11:50 Urine Blood Sm (Negative) 08/06/19 11:50 Urine Nitrite Neg (Negative) 08/06/19 11:50 Urine Bilirubin Neg (Negative) 08/06/19 11:50 Urine Urobilinogen < 2.0 mg/dL (<2.0) 08/06/19 11:50 Ur Leukocyte Esterase Neg (Negative) 08/06/19 11:50 Urine WBC (Auto) < 1.0 /HPF (0.0-6.0) 08/06/19 11:50 Urine RBC (Auto) 2.0 /HPF (0.0-6.0) 08/06/19 11:50 U Epithel Cells (Auto) 1.0 /HPF (0-13.0) 08/06/19 11:50 Urine Mucus Few /HPF 08/06/19 11:50 Urine Opiates Screen Presumptive negative 08/06/19 11:50 Urine Methadone Screen Presumptive negative 08/06/19 11:50 Ur Barbiturates Screen Presumptive negative 08/06/19 11:50 Ur Phencyclidine Scrn Presumptive negative 08/06/19 11:50 Ur Amphetamines Screen Presumptive negative 08/06/19 11:50 U Benzodiazepines Scrn Presumptive negative 08/06/19 11:50 Urine Cocaine Screen Presumptive positive 08/06/19 11:50 U Marijuana (THC) Screen Presumptive negative 08/06/19 11:50 Drugs of Abuse Note Disclamer 08/06/19 11:50 Active Medications - Current Medications Current Medications: Generic Name Dose Route Start Last Admin Trade Name Freq PRN Reason Stop Dose Admin Acetaminophen 650 mg 08/06/19 21:25 Tylenol PO Q4H PRN Pain MILD(1-3)/Fever >100.5/TORIBIO Amlodipine Besylate 10 mg 08/06/19 22:00 08/07/19 10:14 Amlodipine PO 10 mg QDAY WILL Administration Aspirin 81 mg 08/06/19 22:00 08/07/19 10:14 Baby Aspirin PO 81 mg QDAY WILL Administration Carvedilol 25 mg 08/06/19 22:00 08/07/19 10:14 Coreg PO 25 mg BID WILL Administration Famotidine 10 mg 08/06/19 22:00 08/07/19 10:14 Pepcid PO 10 mg BID WILL Administration Furosemide 40 mg 08/07/19 06:00 08/07/19 06:34 Lasix IV 40 mg 0600,1800 WILL Administration Hydralazine HCl 50 mg 08/06/19 22:00 08/07/19 06:34 Apresoline PO 50 mg Q8H WILL Administration Hydromorphone HCl 0.5 mg 08/06/19 21:25 Dilaudid IV Q3H PRN Pain , Severe (7-10) Levetiracetam 750 mg 08/06/19 22:00 08/07/19 10:13 Keppra PO 750 mg BID WILL Administration Metoclopramide HCl 5 mg 08/06/19 21:34 Reglan IV Q6H PRN Nausea And Vomiting Ondansetron HCl 4 mg 08/06/19 21:25 Zofran IV Q8H PRN Nausea And Vomiting Oxycodone/Acetaminophen 1 tab 08/06/19 21:25 08/06/19 21:53 Percocet 5/325 PO 1 tab Q6H PRN Administration Pain, Moderate (4-6) Pravastatin Sodium 20 mg 08/06/19 22:00 08/06/19 21:53 Pravachol PO 20 mg QHS WILL Administration Sodium Chloride 10 ml 08/06/19 22:00 08/07/19 10:14 Sodium Chloride Flush Syringe 10 Ml IV 10 ml BID WILL Administration Sodium Chloride 10 ml 08/06/19 21:25 Sodium Chloride Flush Syringe 10 Ml IV PRN PRN LINE FLUSH
--- NOTE | 2019-08-07 12:34 | Consultation ---
History of Present Illness Consult date: 08/07/19 Consult reason: congestive heart failure, hypertension History of present illness: The patient's 58-year-old man admitted to the hospital with shortness of breath, hypoxemia, on presentation uncontrolled systolic blood pressure of 200, chest x- ray shows acute pulmonary edema. 12-lead ECG is not available for my review, but on telemetry he is Sinus rhythm with normal QRS and nonspecific ST and T wave abnormalities possibly left ventricle hypertrophy. The patient has a long history of chronic severe hypertension, end-stage renal disease, dilated cardiomyopathy with systolic heart failure, and a seizure disorder. He is admittedly noncompliant with medical therapy, outpatient follow-up visits, and is currently not on dialysis despite a creatinine of 5.5. He states that his primary care is at the [facility], but does not take his medications because he is unable to afford the co-pay. There is no chest pain, no palpitations and no syncope. He denies lower extremity edema. Most recent echocardiogram done in this hospital 3 months ago reported left ventricular ejection fraction 20-25%. A thallium myocardial perfusion study done a year ago was negative for cardiac ischemia. He has a diagnosis of a presumed nonischemic cardiomyopathy. Past History Past Medical History: heart failure, hypertension, renal failure Medications and Allergies Allergies Allergy/AdvReac Type Severity Reaction Status Date / Time No Known Allergies Allergy Verified 04/09/19 13:12 Home Medications Medication Instructions Recorded Confirmed Last Taken Type Aspirin [Aspirin BABY CHEW TAB] 81 mg PO QDAY #30 tab.chew 11/22/17 08/06/19 04/10/19 Rx Carvedilol [Coreg] 25 mg PO BID #60 tablet 04/14/19 08/06/19 Unknown Rx Furosemide [Lasix TAB] 40 mg PO QDAY #30 tablet 04/14/19 08/06/19 Unknown Rx Pravastatin Sodium [Pravastatin] 20 mg PO QHS #60 tablet 04/14/19 08/06/19 Unknown Rx amLODIPine 10 mg PO QDAY #30 tablet 04/14/19 08/06/19 Unknown Rx hydrALAZINE [Apresoline TAB] 50 mg PO Q8H #90 tablet 04/14/19 08/06/19 Unknown Rx levETIRAcetam [Keppra TAB] 750 mg PO BID #60 tablet 04/14/19 08/06/19 Unknown Rx Active Meds: Active Medications Acetaminophen (Tylenol) 650 mg PO Q4H PRN PRN Reason: Pain MILD(1-3)/Fever >100.5/TOIRBIO Amlodipine Besylate (Amlodipine) 10 mg PO QDAY [facility] Last Admin: 08/07/19 10:14 Dose: 10 mg Documented by: Aspirin (Baby Aspirin) 81 mg PO QDAY [facility] Last Admin: 08/07/19 10:14 Dose: 81 mg Documented by: Carvedilol (Coreg) 25 mg PO BID [facility] Last Admin: 08/07/19 10:14 Dose: 25 mg Documented by: Famotidine (Pepcid) 10 mg PO BID [facility] Last Admin: 08/07/19 10:14 Dose: 10 mg Documented by: Furosemide (Lasix) 40 mg IV 0600,1800 [facility] Last Admin: 08/07/19 06:34 Dose: 40 mg Documented by: Hydralazine HCl (Apresoline) 50 mg PO Q8H [facility] Last Admin: 08/07/19 06:34 Dose: 50 mg Documented by: Hydromorphone HCl (Dilaudid) 0.5 mg IV Q3H PRN PRN Reason: Pain , Severe (7-10) Levetiracetam (Keppra) 750 mg PO BID [facility] Last Admin: 08/07/19 10:13 Dose: 750 mg Documented by: Metoclopramide HCl (Reglan) 5 mg IV Q6H PRN PRN Reason: Nausea And Vomiting Ondansetron HCl (Zofran) 4 mg IV Q8H PRN PRN Reason: Nausea And Vomiting Oxycodone/Acetaminophen (Percocet 5/325) 1 tab PO Q6H PRN PRN Reason: Pain, Moderate (4-6) Last Admin: 08/06/19 21:53 Dose: 1 tab Documented by: Pravastatin Sodium (Pravachol) 20 mg PO QHS [facility] Last Admin: 08/06/19 21:53 Dose: 20 mg Documented by: Sodium Chloride (Sodium Chloride Flush Syringe 10 Ml) 10 ml IV BID [facility] Last Admin: 08/07/19 10:14 Dose: 10 ml Documented by: Sodium Chloride (Sodium Chloride Flush Syringe 10 Ml) 10 ml IV PRN PRN PRN Reason: LINE FLUSH Review of Systems Cardiovascular: orthopnea, shortness of breath, no chest pain, no palpitations, no rapid/irregular heart beat, no edema, no syncope, no lightheadedness Physical Examination Vital Signs Temp Pulse Resp BP Pulse Ox 98.4 F 89 20 196/128 97 08/06/19 08:30 08/06/19 08:30 08/06/19 08:30 08/06/19 08:30 08/06/19 08:30 General appearance: no acute distress HEENT: Positive: PERRL Neck: Positive: neck supple Cardiac: Positive: Reg Rate and Rhythm Lungs: Positive: Decreased Breath Sounds Neuro: Positive: Grossly Intact Abdomen: Positive: Soft Male genitourinary: Positive: deferred Skin: Positive: Clear Extremities: Absent: edema Results 08/07/19 03:29 08/07/19 03:29 Cardiac Enzymes 08/07/19 Range/Units 03:29 AST 17 (5-40) units/L CBC 08/07/19 Range/Units 03:29 WBC 7.4 (4.5-11.0) K/mm3 RBC 2.58 L (3.65-5.03) M/mm3 Hgb 8.7 L (11.8-15.2) gm/dl Hct 25.8 L (35.5-45.6) % Plt Count 229 (140-440) K/mm3 Lymph # 0.9 L (1.2-5.4) K/mm3 [place] # 0.5 (0.0-0.8) K/mm3 Eos # 0.0 (0.0-0.4) K/mm3 Baso # 0.0 (0.0-0.1) K/mm3 Comprehensive Metabolic Panel 08/07/19 Range/Units 03:29 Sodium 143 (137-145) mmol/L Potassium 5.5 H (3.6-5.0) mmol/L Chloride 116.8 H (98-107) mmol/L Carbon Dioxide 15 L (22-30) mmol/L BUN 63 H (9-20) mg/dL Creatinine 5.7 H (0.8-1.5) mg/dL Glucose 108 H (75-100) mg/dL Calcium 8.3 L (8.4-10.2) mg/dL AST 17 (5-40) units/L ALT 48 (7-56) units/L Alkaline Phosphatase 126 (35-129) units/L Total Protein 5.7 L (6.3-8.2) g/dL Albumin 3.2 L (3.9-5) g/dL EKG interpretations - Telemetry EKG Rhythm: Sinus Rhythm Assessment and Plan Patient presents with decompensated heart failure which is multifactorial, acute on chronic systolic heart failure due to medication and dietary noncompliance, uncontrolled hypertension, and worsening, end-stage renal dysfunction. Strategies for management in the immediate and long-term include optimal diuretic therapy, afterload agents, beta blockers, optimal blood control, and further evaluation of his worsening renal disease. Ultimately, hemodialysis and social intervention to ensure outpatient medication and dietary compliance will provide the most benefit in his long-term management.
[2019-08-07] MEDS: FOLIC ACID 1 MG TAB PO SCH (14:11)
[2019-08-07] MEDS: THIAMINE 100 MG TAB PO SCH (14:11)
[2019-08-07] MEDS: oxyCODONE /ACETAMINOPHEN 5-325MG TAB PO PRN (21:06)
[2019-08-07] MEDS: PRAVASTATIN 20 MG TAB PO SCH (21:07)
[2019-08-08] MEDS: oxyCODONE /ACETAMINOPHEN 5-325MG TAB PO PRN ×3 (05:41→20:33)
[2019-08-08] MEDS: hydrALAZINE 25 MG TAB PO SCH ×3 (05:42→21:04)
[2019-08-08] MEDS: FUROSEMIDE 40 MG/4 ML INJ IV SCH ×2 (05:42→17:11)
[2019-08-08 07:44] LABS: Hematocrit 25.9 % (35.5-45.6); Hemoglobin 8.7 gm/dl (11.8-15.2); Mean Corpuscular HGB Conc 34 % (32-34); Mean Corpuscular Volume 101 fl (84-94); Platelet Count 241 K/mm3 (140-440); Red Blood Count 2.57 M/mm3 (3.65-5.03); Red Cell Distribution Width 17.9 % (13.2-15.2)
[2019-08-08 08:03] LABS: Calcium 8.2 mg/dL (8.4-10.2)
--- NOTE | 2019-08-08 08:42 | Consultation ---
History of Present Illness - Reason for Consult Consult date: 08/08/19 chronic renal failure - History of Present Illness patient with history of CHF, HTN and cocaine abuse, he has CKD secodnary to HTN nephrosclerosis and coacaine abuse, was admitted for worsening shortness of breath, cardiology consulted and was started on lasix, he was noted to have worsening Cr and renal consult was requested Past History Past Medical History: heart failure, hypertension, renal failure Medications and Allergies Allergies Allergy/AdvReac Type Severity Reaction Status Date / Time No Known Allergies Allergy Verified 04/09/19 13:12 Home Medications Medication Instructions Recorded Confirmed Last Taken Type Aspirin [Aspirin BABY CHEW TAB] 81 mg PO QDAY #30 tab.chew 11/22/17 08/06/19 04/10/19 Rx Carvedilol [Coreg] 25 mg PO BID #60 tablet 04/14/19 08/06/19 Unknown Rx Furosemide [Lasix TAB] 40 mg PO QDAY #30 tablet 04/14/19 08/06/19 Unknown Rx Pravastatin Sodium [Pravastatin] 20 mg PO QHS #60 tablet 04/14/19 08/06/19 Unknown Rx amLODIPine 10 mg PO QDAY #30 tablet 04/14/19 08/06/19 Unknown Rx hydrALAZINE [Apresoline TAB] 50 mg PO Q8H #90 tablet 04/14/19 08/06/19 Unknown Rx levETIRAcetam [Keppra TAB] 750 mg PO BID #60 tablet 04/14/19 08/06/19 Unknown Rx Active Meds: Active Medications Acetaminophen (Tylenol) 650 mg PO Q4H PRN PRN Reason: Pain MILD(1-3)/Fever >100.5/TORIBIO Amlodipine Besylate (Amlodipine) 10 mg PO QDAY [facility] Last Admin: 08/07/19 10:14 Dose: 10 mg Documented by: Aspirin (Baby Aspirin) 81 mg PO QDAY [facility] Last Admin: 08/07/19 10:14 Dose: 81 mg Documented by: Carvedilol (Coreg) 25 mg PO BID [facility] Last Admin: 08/07/19 21:07 Dose: 25 mg Documented by: Famotidine (Pepcid) 10 mg PO BID [facility] Last Admin: 08/07/19 21:07 Dose: 10 mg Documented by: Folic Acid (Folvite) 1 mg PO QDAY [facility] Last Admin: 08/07/19 14:11 Dose: 1 mg Documented by: Furosemide (Lasix) 40 mg IV 0600,1800 [facility] Last Admin: 08/08/19 05:42 Dose: 40 mg Documented by: Hydralazine HCl (Apresoline) 50 mg PO Q8H [facility] Last Admin: 08/08/19 05:42 Dose: 50 mg Documented by: Hydromorphone HCl (Dilaudid) 0.5 mg IV Q3H PRN PRN Reason: Pain , Severe (7-10) Levetiracetam (Keppra) 750 mg PO BID [facility] Last Admin: 08/07/19 21:07 Dose: 750 mg Documented by: Metoclopramide HCl (Reglan) 5 mg IV Q6H PRN PRN Reason: Nausea And Vomiting Ondansetron HCl (Zofran) 4 mg IV Q8H PRN PRN Reason: Nausea And Vomiting Oxycodone/Acetaminophen (Percocet 5/325) 1 tab PO Q6H PRN PRN Reason: Pain, Moderate (4-6) Last Admin: 08/08/19 05:41 Dose: 1 tab Documented by: Pravastatin Sodium (Pravachol) 20 mg PO QHS [facility] Last Admin: 08/07/19 21:07 Dose: 20 mg Documented by: Sodium Chloride (Sodium Chloride Flush Syringe 10 Ml) 10 ml IV BID [facility] Last Admin: 08/07/19 21:07 Dose: 10 ml Documented by: Sodium Chloride (Sodium Chloride Flush Syringe 10 Ml) 10 ml IV PRN PRN PRN Reason: LINE FLUSH Thiamine HCl (Vitamin B-1) 100 mg PO QDAY [facility] Last Admin: 08/07/19 14:11 Dose: 100 mg Documented by: Review of Systems All systems: negative (SOB) Exam - Vital Signs Vital signs: Vital Signs Temp Pulse Resp BP Pulse Ox 98.4 F 89 20 196/128 97 08/06/19 08:30 08/06/19 08:30 08/06/19 08:30 08/06/19 08:30 08/06/19 08:30 - General Appearance General appearance: well-developed, well-nourished, appears stated age EENT: ATNC, PERRL, mucous membranes moist Neck: Present: neck supple Respiratory: Decreased Breath Sounds Heart: regular, S1S2 Gastrointestinal: Present: normoactive bowel sounds Integumentary: no rash, warm and dry Neurologic: no focal deficit, no asterixis, alert and oriented x3 Musculoskeletal: Present: other (trace pitting edema in BLE) Psychiatric: mood/affect appropriate, cooperative Results - Lab Results 08/08/19 07:10 08/08/19 07:10 Most recent lab results Calcium 8.2 mg/dL (8.4-10.2) L 08/08/19 07:10 Phosphorus 4.80 mg/dL (2.5-4.5) H 08/06/19 08:40 Magnesium 1.50 mg/dL (1.7-2.3) L 08/08/19 07:10 Assessment and Plan Acute on chronic systolic heart failure severe renal failure, likely progressing CKD Hyperkalemia UDS positive for Cocaine -will recheck urine eos positive on prior admission but he is not candidate for kidney biopsy because he on aspirin and due to poor compliance with meds,a appointment and history of drug abuse - may need to start HD this admission no acute indication, he stated he would think about it - urine ltes ordered - renally dose meds - strict I&O - daily weight Zach Marroquin MD [phone]
[2019-08-08] MEDS: levETIRAcetam 500 MG/5 ML ORAL LIQD PO SCH ×2 (09:32→21:03)
[2019-08-08] MEDS: THIAMINE 100 MG TAB PO SCH (09:32)
[2019-08-08] MEDS: amLODIPine 10 MG TAB PO SCH (09:32)
[2019-08-08] MEDS: FAMOTIDINE 10 MG TAB PO SCH ×2 (09:32→21:03)
[2019-08-08] MEDS: carvediloL 25 MG TAB PO SCH ×2 (09:32→21:04)
[2019-08-08] MEDS: FOLIC ACID 1 MG TAB PO SCH (09:32)
[2019-08-08] MEDS: ASPIRIN 81 MG TAB CHEW PO SCH (09:32)
--- NOTE | 2019-08-08 10:00 | Progress Note ---
Assessment and Plan Patient presents with decompensated heart failure which is multifactorial, acute on chronic systolic heart failure due to medication and dietary noncompliance, uncontrolled hypertension, and worsening, end-stage renal dysfunction. Strategies for management in the immediate and long-term include optimal diuretic therapy, afterload agents, beta blockers, optimal blood control, and further evaluation of his worsening renal disease. Ultimately, hemodialysis and social intervention to ensure outpatient medication and dietary compliance will provide the most benefit in his long-term management. Subjective Date of service: 08/08/19 Interval history: Patient is comfortable, shortness of breath improved, no new cardiac complaints. Blood pressure is 158 systolic. Objective Vital Signs Temp Pulse Pulse Resp Resp BP Pulse Ox 08/08/19 05:42 82 158/102 08/08/19 05:41 18 08/08/19 05:26 98.2 F 08/08/19 05:25 82 18 158/102 96 08/08/19 00:18 98.1 F 08/08/19 00:16 78 18 153/100 96 08/07/19 22:06 18 08/07/19 21:18 18 08/07/19 21:15 80 18 97 08/07/19 21:11 90 149/100 08/07/19 21:07 90 149/100 08/07/19 21:06 18 08/07/19 20:16 97.9 F 08/07/19 20:14 90 18 149/100 95 08/07/19 19:39 87 08/07/19 17:07 97.7 F 85 18 139/91 95 08/07/19 12:25 89 - Physical Examination General: No Apparent Distress HEENT: Positive: PERRL Neck: Positive: neck supple Cardiac: Positive: Reg Rate and Rhythm Lungs: Positive: Decreased Breath Sounds Neuro: Positive: Grossly Intact Abdomen: Positive: Soft Skin: Positive: Clear Extremities: Absent: edema - Labs and Meds CBC 08/08/19 Range/Units 07:10 WBC 4.3 L (4.5-11.0) K/mm3 RBC 2.57 L (3.65-5.03) M/mm3 Hgb 8.7 L (11.8-15.2) gm/dl Hct 25.9 L (35.5-45.6) % Plt Count 241 (140-440) K/mm3 Comprehensive Metabolic Panel 08/08/19 Range/Units 07:10 Sodium 141 (137-145) mmol/L Potassium 4.6 (3.6-5.0) mmol/L Chloride 111.1 H (98-107) mmol/L Carbon Dioxide 16 L (22-30) mmol/L BUN 65 H (9-20) mg/dL Creatinine 5.7 H (0.8-1.5) mg/dL Glucose 114 H (75-100) mg/dL Calcium 8.2 L (8.4-10.2) mg/dL - Imaging and Cardiology EKG: report reviewed
[2019-08-08] MEDS: NIFEdipine XL 60 MG TAB PO SCH (11:58)
[2019-08-08 12:28] LABS: Creatinine,Urine 33.4 mg/dL (0.1-20.0)
[2019-08-08 12:55] LABS: Creatinine,Urine 34.3 mg/dL (0.1-20.0); Protein/Creatinine Ratio,Urine 1.34
--- NOTE | 2019-08-08 13:29 | Progress Note ---
Assessment and Plan Assessment and plan: Patient is 58 yo man with a history of HTN, OA, Sz, tobacco dependency, CHF, CKD alcohol and cocaine abuse who presented to [facility] ED with SOB. He was admitted for CHF exacerbation due to non-compliance. * TTE Conclusions: 4 chambers dilated CM, global left ventricular systolic function is severely decreased, estimated EF 20-25%, moderate concentric Left Ventricular hyperthropathy, mild to moderate MR, mild AR, mild to moderate TR, moderate pulmonary hypertension, RVSP is calculated at 45 mmHg. Acute on chronic systolic heart failure: consult Cardiology, difficult decision regarding diuretics as patient is in ARF, will consult Nephrology Hyperkalemia: treat with kayexalate HUNTER/CKD 3, vasomotor nephropathy: Nephrology consulted, input noted. UDS positive for Cocaine: Counseling done. Mild malnutrition: consult Logistics Account Manager Macrocytic anemia, suspect alcohol related: treat with folate DVT ppx sq heparin History Interval history: Patient was seen and examined. Follow-up on current diagnosis of CHF. No overnight events reported to me. Patient denies any chest pain, nausea/vomiting or severe headaches. Imaging, nursing note, chart, labs and old chart reviewed. Discussed with patient. Hospitalist Physical - Physical exam Narrative exam: Gen: WDWN, NAD, Awake, Alert, Orientated HEENT: NCAT, EOMI, PERRL, OP Clear Neck: supple, no adenopathy, no thyromegaly, no JVD CVS/Heart: RRR, normal S1S2, pulses present bilaterally Chest/Lungs: diminished bs bilateral, Symmetrical chest expansion, good air entr y bilaterally GI/Abdomen: soft, NTND, good bowel sounds, no guarding or rebound /Bladder: no suprapubic tenderness, no CVA or paraspinal tenderness Extermity/Skin: no c/c/e, no obvious rash MSK: FROM x 4 Neuro: CN 2-12 grossly intact, no new focal deficits Psych: calm - Constitutional Vitals: Temp Pulse Resp BP Pulse Ox 97.8 F 76 18 145/96 95 08/08/19 07:33 08/08/19 10:00 08/08/19 07:33 08/08/19 07:33 08/08/19 07:33 General appearance: Present: no acute distress Results - Labs CBC & Chem 7: 08/08/19 07:10 08/08/19 07:10 Labs: Laboratory Last Values WBC 4.3 K/mm3 (4.5-11.0) L 08/08/19 07:10 RBC 2.57 M/mm3 (3.65-5.03) L 08/08/19 07:10 Hgb 8.7 gm/dl (11.8-15.2) L 08/08/19 07:10 Hct 25.9 % (35.5-45.6) L 08/08/19 07:10 MCV 101 fl (84-94) H 08/08/19 07:10 MCH 34 pg (28-32) H 08/08/19 07:10 MCHC 34 % (32-34) 08/08/19 07:10 RDW 17.9 % (13.2-15.2) H 08/08/19 07:10 Plt Count 241 K/mm3 (140-440) 08/08/19 07:10 Lymph % (Auto) 12.0 % (13.4-35.0) L 08/07/19 03:29 [place] % (Auto) 6.5 % (0.0-7.3) 08/07/19 03:29 Eos % (Auto) 0.1 % (0.0-4.3) 08/07/19 03:29 Baso % (Auto) 0.4 % (0.0-1.8) 08/07/19 03:29 Lymph # 0.9 K/mm3 (1.2-5.4) L 08/07/19 03:29 [place] # 0.5 K/mm3 (0.0-0.8) 08/07/19 03:29 Eos # 0.0 K/mm3 (0.0-0.4) 08/07/19 03:29 Baso # 0.0 K/mm3 (0.0-0.1) 08/07/19 03:29 Seg Neutrophils % 81.0 % (40.0-70.0) H 08/07/19 03:29 Seg Neutrophils # 6.0 K/mm3 (1.8-7.7) 08/07/19 03:29 PT 14.6 Sec. (12.2-14.9) 08/06/19 08:40 INR 1.15 (0.87-1.13) H 08/06/19 08:40 APTT 28.6 Sec. (24.2-36.6) 08/06/19 08:40 Sodium 141 mmol/L (137-145) 08/08/19 07:10 Potassium 4.6 mmol/L (3.6-5.0) 08/08/19 07:10 Chloride 111.1 mmol/L (98-107) H 08/08/19 07:10 Carbon Dioxide 16 mmol/L (22-30) L 08/08/19 07:10 Anion Gap 19 mmol/L 08/08/19 07:10 BUN 65 mg/dL (9-20) H 08/08/19 07:10 Creatinine 5.7 mg/dL (0.8-1.5) H 08/08/19 07:10 Estimated GFR 12 ml/min 08/08/19 07:10 BUN/Creatinine Ratio 11 % 08/08/19 07:10 Glucose 114 mg/dL (75-100) H 08/08/19 07:10 Hemoglobin A1c 4.8 % (4-6) 08/06/19 08:40 Calcium 8.2 mg/dL (8.4-10.2) L 08/08/19 07:10 Phosphorus 4.80 mg/dL (2.5-4.5) H 08/06/19 08:40 Magnesium 1.50 mg/dL (1.7-2.3) L 08/08/19 07:10 Total Bilirubin < 0.20 mg/dL (0.1-1.2) 08/07/19 03:29 AST 17 units/L (5-40) 08/07/19 03:29 ALT 48 units/L (7-56) 08/07/19 03:29 Alkaline Phosphatase 126 units/L (35-129) 08/07/19 03:29 Troponin T 0.027 ng/mL (0.00-0.029) 08/06/19 11:49 NT-Pro-B Natriuret Pep 34024 pg/mL (0-900) H 08/06/19 08:40 Total Protein 5.7 g/dL (6.3-8.2) L 08/07/19 03:29 Albumin 3.2 g/dL (3.9-5) L 08/07/19 03:29 Albumin/Globulin Ratio 1.3 % 08/07/19 03:29 Triglycerides 73 mg/dL (2-149) 08/06/19 08:40 Cholesterol 113 mg/dL (50-199) 08/06/19 08:40 LDL Cholesterol Direct 56 mg/dL (50-130) 08/06/19 08:40 HDL Cholesterol 50 mg/dL (40-59) 08/06/19 08:40 Cholesterol/HDL Ratio 2.26 % 08/06/19 08:40 Lipase 23 units/L (13-60) 08/06/19 08:40 Urine Color Straw (Yellow) 08/06/19 11:50 Urine Turbidity Clear (Clear) 08/06/19 11:50 Urine pH 5.0 (5.0-7.0) 08/06/19 11:50 Ur Specific [place] 1.010 (1.003-1.030) 08/06/19 11:50 Urine Protein 100 mg/dl mg/dL (Negative) 08/06/19 11:50 Urine Glucose (UA) Neg mg/dL (Negative) 08/06/19 11:50 Urine Ketones Neg mg/dL (Negative) 08/06/19 11:50 Urine Blood Sm (Negative) 08/06/19 11:50 Urine Nitrite Neg (Negative) 08/06/19 11:50 Urine Bilirubin Neg (Negative) 08/06/19 11:50 Urine Urobilinogen < 2.0 mg/dL (<2.0) 08/06/19 11:50 Ur Leukocyte Esterase Neg (Negative) 08/06/19 11:50 Urine WBC (Auto) < 1.0 /HPF (0.0-6.0) 08/06/19 11:50 Urine RBC (Auto) 2.0 /HPF (0.0-6.0) 08/06/19 11:50 U Epithel Cells (Auto) 1.0 /HPF (0-13.0) 08/06/19 11:50 Urine Mucus Few /HPF 08/06/19 11:50 Urine Creatinine 33.4 mg/dL (0.1-20.0) H 08/08/19 12:15 Protein/Creatinin Ratio 1.34 08/08/19 12:00 Urine Sodium 125 mmol/L 08/08/19 12:15 Urine Total Protein 46 mg/dL (5-11.8) H 08/08/19 12:00 Urine Opiates Screen Presumptive negative 08/06/19 11:50 Urine Methadone Screen Presumptive negative 08/06/19 11:50 Ur Barbiturates Screen Presumptive negative 08/06/19 11:50 Ur Phencyclidine Scrn Presumptive negative 08/06/19 11:50 Ur Amphetamines Screen Presumptive negative 08/06/19 11:50 U Benzodiazepines Scrn Presumptive negative 08/06/19 11:50 Urine Cocaine Screen Presumptive positive 08/06/19 11:50 U Marijuana (THC) Screen Presumptive negative 08/06/19 11:50 Drugs of Abuse Note Disclamer 08/06/19 11:50 Active Medications - Current Medications Current Medications: Generic Name Dose Route Start Last Admin Trade Name Freq PRN Reason Stop Dose Admin Acetaminophen 650 mg 08/06/19 21:25 Tylenol PO Q4H PRN Pain MILD(1-3)/Fever >100.5/TORIBIO Aspirin 81 mg 08/06/19 22:00 08/08/19 09:32 Baby Aspirin PO 81 mg QDAY WILL Administration Carvedilol 25 mg 08/06/19 22:00 08/08/19 09:32 Coreg PO 25 mg BID WILL Administration Famotidine 10 mg 08/06/19 22:00 08/08/19 09:32 Pepcid PO 10 mg BID WILL Administration Folic Acid 1 mg 08/07/19 13:00 08/08/19 09:32 Folvite PO 1 mg QDAY WILL Administration Furosemide 40 mg 08/07/19 06:00 08/08/19 05:42 Lasix IV 40 mg 0600,1800 WILL Administration Hydralazine HCl 50 mg 08/06/19 22:00 08/08/19 05:42 Apresoline PO 50 mg Q8H WILL Administration Hydromorphone HCl 0.5 mg 08/06/19 21:25 Dilaudid IV Q3H PRN Pain , Severe (7-10) Levetiracetam 750 mg 08/06/19 22:00 08/08/19 09:32 Keppra PO 750 mg BID WILL Administration Metoclopramide HCl 5 mg 08/06/19 21:34 Reglan IV Q6H PRN Nausea And Vomiting Nifedipine 60 mg 08/08/19 11:00 08/08/19 11:58 Procardia Xl PO 60 mg QDAY WILL Administration Ondansetron HCl 4 mg 08/06/19 21:25 Zofran IV Q8H PRN Nausea And Vomiting Oxycodone/Acetaminophen 1 tab 08/06/19 21:25 08/08/19 11:58 Percocet 5/325 PO 1 tab Q6H PRN Administration Pain, Moderate (4-6) Pravastatin Sodium 20 mg 08/06/19 22:00 08/07/19 21:07 Pravachol PO 20 mg QHS WILL Administration Sodium Chloride 10 ml 08/06/19 22:00 08/08/19 09:33 Sodium Chloride Flush Syringe 10 Ml IV 10 ml BID WILL Administration Sodium Chloride 10 ml 08/06/19 21:25 Sodium Chloride Flush Syringe 10 Ml IV PRN PRN LINE FLUSH Thiamine HCl 100 mg 08/07/19 13:00 08/08/19 09:32 Vitamin B-1 PO 100 mg QDAY WILL Administration
[2019-08-08] MEDS: PRAVASTATIN 20 MG TAB PO SCH (21:04)
[2019-08-08] MEDS: BENZONATATE 100 MG CAP PO SCH (23:19)
[2019-08-09] MEDS: hydrALAZINE 25 MG TAB PO SCH ×3 (05:34→22:23)
[2019-08-09] MEDS: BENZONATATE 100 MG CAP PO SCH ×3 (05:34→22:23)
[2019-08-09] MEDS: FUROSEMIDE 40 MG/4 ML INJ IV SCH ×2 (05:35→17:41)
[2019-08-09] MEDS: oxyCODONE /ACETAMINOPHEN 5-325MG TAB PO PRN ×3 (05:35→22:26)
[2019-08-09 06:39] LABS: Basophils % (Auto) 0.9 % (0.0-1.8); Eosinophils % (Auto) 1.6 % (0.0-4.3); Hemoglobin 8.6 gm/dl (11.8-15.2); Lymphocytes # (Auto) 0.7 K/mm3 (1.2-5.4); Lymphocytes % (Auto) 22.5 % (13.4-35.0); Mean Corpuscular HGB Conc 33 % (32-34); Mean Corpuscular Volume 100 fl (84-94); Monocytes # (Auto) 0.4 K/mm3 (0.0-0.8); Monocytes % (Auto) 14.3 % (0.0-7.3); Platelet Count 217 K/mm3 (140-440); Red Blood Count 2.61 M/mm3 (3.65-5.03); Red Cell Distribution Width 17.5 % (13.2-15.2)
[2019-08-09 07:19] LABS: Calcium 8.4 mg/dL (8.4-10.2)
--- NOTE | 2019-08-09 08:18 | Progress Note ---
Assessment and Plan Assessment and plan: Patient is 58 yo man with a history of HTN, OA, Sz, tobacco dependency, CHF, CKD alcohol and cocaine abuse who presented to [facility] ED with SOB. He was admitted for CHF exacerbation due to non-compliance. * TTE Conclusions: 4 chambers dilated CM, global left ventricular systolic function is severely decreased, estimated EF 20-25%, moderate concentric Left Ventricular hyperthropathy, mild to moderate MR, mild AR, mild to moderate TR, moderate pulmonary hypertension, RVSP is calculated at 45 mmHg. Acute on chronic systolic heart failure: consult Cardiology, difficult decision regarding diuretics as patient is in ARF, will consult Nephrology Hyperkalemia: treated with kayexalate, check bmp in am HUNTER/CKD 3, creatinine was 4.7 when he was discharge on 04/14/19 but was admitted with Cr of 3.3 on 04/09/19, vasomotor nephropathy: Nephrology consulted, input noted. UDS positive for Cocaine: Counseling done. Hypomagemesia: repleted and recheck in AM Mild malnutrition: consult Patch Driller Macrocytic anemia, suspect alcohol related: treat with folate DVT ppx sq heparin full code Disposition: continue inpatient care, once renal function stabilize and cleared by Cardiology then d/c home History Interval history: Patient was seen and examined. Follow-up on current diagnosis of CHF and ARF. No overnight events reported to me. Patient denies any chest pain, nausea/vomiting or severe headaches. Imaging, nursing note, chart, labs and old chart reviewed. Discussed with patient. Hospitalist Physical - Physical exam Narrative exam: Gen: WDWN, NAD, Awake, Alert, Orientated HEENT: NCAT, EOMI, PERRL, OP Clear Neck: supple, no adenopathy, no thyromegaly, no JVD CVS/Heart: RRR, normal S1S2, pulses present bilaterally Chest/Lungs: diminished bs bilateral, Symmetrical chest expansion, good air entry bilaterally GI/Abdomen: soft, NTND, good bowel sounds, no guarding or rebound /Bladder: no suprapubic tenderness, no CVA or paraspinal tenderness Extermity/Skin: no c/c/e, no obvious rash MSK: FROM x 4 Neuro: CN 2-12 grossly intact, no new focal deficits Psych: calm - Constitutional Vitals: Temp Pulse Resp BP Pulse Ox 97.7 F 72 16 140/87 95 08/09/19 07:38 08/09/19 07:38 08/09/19 07:38 08/09/19 07:38 08/09/19 07:38 General appearance: Present: no acute distress Results - Labs CBC & Chem 7: 08/09/19 05:35 08/09/19 05:35 Labs: Laboratory Last Values WBC 3.1 K/mm3 (4.5-11.0) L 08/09/19 05:35 RBC 2.61 M/mm3 (3.65-5.03) L 08/09/19 05:35 Hgb 8.6 gm/dl (11.8-15.2) L 08/09/19 05:35 Hct 26.0 % (35.5-45.6) L 08/09/19 05:35 MCV 100 fl (84-94) H 08/09/19 05:35 MCH 33 pg (28-32) H 08/09/19 05:35 MCHC 33 % (32-34) 08/09/19 05:35 RDW 17.5 % (13.2-15.2) H 08/09/19 05:35 Plt Count 217 K/mm3 (140-440) 08/09/19 05:35 Lymph % (Auto) 22.5 % (13.4-35.0) 08/09/19 05:35 [place] % (Auto) 14.3 % (0.0-7.3) H 08/09/19 05:35 Eos % (Auto) 1.6 % (0.0-4.3) 08/09/19 05:35 Baso % (Auto) 0.9 % (0.0-1.8) 08/09/19 05:35 Lymph # 0.7 K/mm3 (1.2-5.4) L 08/09/19 05:35 [place] # 0.4 K/mm3 (0.0-0.8) 08/09/19 05:35 Eos # 0.0 K/mm3 (0.0-0.4) 08/09/19 05:35 Baso # 0.0 K/mm3 (0.0-0.1) 08/09/19 05:35 Seg Neutrophils % 60.7 % (40.0-70.0) 08/09/19 05:35 Seg Neutrophils # 1.9 K/mm3 (1.8-7.7) 08/09/19 05:35 PT 14.6 Sec. (12.2-14.9) 08/06/19 08:40 INR 1.15 (0.87-1.13) H 08/06/19 08:40 APTT 28.6 Sec. (24.2-36.6) 08/06/19 08:40 Sodium 141 mmol/L (137-145) 08/09/19 05:35 Potassium 4.5 mmol/L (3.6-5.0) 08/09/19 05:35 Chloride 110.1 mmol/L (98-107) H 08/09/19 05:35 Carbon Dioxide 19 mmol/L (22-30) L 08/09/19 05:35 Anion Gap 16 mmol/L 08/09/19 05:35 BUN 67 mg/dL (9-20) H 08/09/19 05:35 Creatinine 5.8 mg/dL (0.8-1.5) H 08/09/19 05:35 Estimated GFR 12 ml/min 08/09/19 05:35 BUN/Creatinine Ratio 12 % 08/09/19 05:35 Glucose 95 mg/dL (75-100) 08/09/19 05:35 Hemoglobin A1c 4.8 % (4-6) 08/06/19 08:40 Calcium 8.4 mg/dL (8.4-10.2) 08/09/19 05:35 Phosphorus 4.60 mg/dL (2.5-4.5) H 08/09/19 05:35 Magnesium 1.50 mg/dL (1.7-2.3) L 08/08/19 07:10 Total Bilirubin < 0.20 mg/dL (0.1-1.2) 08/07/19 03:29 AST 17 units/L (5-40) 08/07/19 03:29 ALT 48 units/L (7-56) 08/07/19 03:29 Alkaline Phosphatase 126 units/L (35-129) 08/07/19 03:29 Troponin T 0.027 ng/mL (0.00-0.029) 08/06/19 11:49 NT-Pro-B Natriuret Pep 45038 pg/mL (0-900) H 08/06/19 08:40 Total Protein 5.7 g/dL (6.3-8.2) L 08/07/19 03:29 Albumin 3.2 g/dL (3.9-5) L 08/07/19 03:29 Albumin/Globulin Ratio 1.3 % 08/07/19 03:29 Triglycerides 73 mg/dL (2-149) 08/06/19 08:40 Cholesterol 113 mg/dL (50-199) 08/06/19 08:40 LDL Cholesterol Direct 56 mg/dL (50-130) 08/06/19 08:40 HDL Cholesterol 50 mg/dL (40-59) 08/06/19 08:40 Cholesterol/HDL Ratio 2.26 % 08/06/19 08:40 Lipase 23 units/L (13-60) 08/06/19 08:40 Urine Color Straw (Yellow) 08/06/19 11:50 Urine Turbidity Clear (Clear) 08/06/19 11:50 Urine pH 5.0 (5.0-7.0) 08/06/19 11:50 Ur Specific [place] 1.010 (1.003-1.030) 08/06/19 11:50 Urine Protein 100 mg/dl mg/dL (Negative) 08/06/19 11:50 Urine Glucose (UA) Neg mg/dL (Negative) 08/06/19 11:50 Urine Ketones Neg mg/dL (Negative) 08/06/19 11:50 Urine Blood Sm (Negative) 08/06/19 11:50 Urine Nitrite Neg (Negative) 08/06/19 11:50 Urine Bilirubin Neg (Negative) 08/06/19 11:50 Urine Urobilinogen < 2.0 mg/dL (<2.0) 08/06/19 11:50 Ur Leukocyte Esterase Neg (Negative) 08/06/19 11:50 Urine WBC (Auto) < 1.0 /HPF (0.0-6.0) 08/06/19 11:50 Urine RBC (Auto) 2.0 /HPF (0.0-6.0) 08/06/19 11:50 U Epithel Cells (Auto) 1.0 /HPF (0-13.0) 08/06/19 11:50 Urine Mucus Few /HPF 08/06/19 11:50 Urine Eosinophils None seen (None Seen) 08/08/19 12:15 Urine Creatinine 33.4 mg/dL (0.1-20.0) H 08/08/19 12:15 Protein/Creatinin Ratio 1.34 08/08/19 12:00 Urine Sodium 125 mmol/L 08/08/19 12:15 Urine Total Protein 46 mg/dL (5-11.8) H 08/08/19 12:00 Urine Opiates Screen Presumptive negative 08/06/19 11:50 Urine Methadone Screen Presumptive negative 08/06/19 11:50 Ur Barbiturates Screen Presumptive negative 08/06/19 11:50 Ur Phencyclidine Scrn Presumptive negative 08/06/19 11:50 Ur Amphetamines Screen Presumptive negative 08/06/19 11:50 U Benzodiazepines Scrn Presumptive negative 08/06/19 11:50 Urine Cocaine Screen Presumptive positive 08/06/19 11:50 U Marijuana (THC) Screen Presumptive negative 08/06/19 11:50 Drugs of Abuse Note Disclamer 08/06/19 11:50 Active Medications - Current Medications Current Medications: Generic Name Dose Route Start Last Admin Trade Name Freq PRN Reason Stop Dose Admin Acetaminophen 650 mg 08/06/19 21:25 Tylenol PO Q4H PRN Pain MILD(1-3)/Fever >100.5/TORIBIO Aspirin 81 mg 08/06/19 22:00 08/08/19 09:32 Baby Aspirin PO 81 mg QDAY WILL Administration Benzonatate 100 mg 08/08/19 23:00 08/09/19 05:34 Tessalon Perles PO 08/11/19 22:59 100 mg Q8HR WILL Administration Carvedilol 25 mg 08/06/19 22:00 08/08/19 21:04 Coreg PO 25 mg BID WILL Administration Famotidine 10 mg 08/06/19 22:00 08/08/19 21:03 Pepcid PO 10 mg BID WILL Administration Folic Acid 1 mg 08/07/19 13:00 08/08/19 09:32 Folvite PO 1 mg QDAY WILL Administration Furosemide 40 mg 08/07/19 06:00 08/09/19 05:35 Lasix IV 40 mg 0600,1800 WILL Administration Hydralazine HCl 50 mg 08/06/19 22:00 08/09/19 05:34 Apresoline PO 50 mg Q8H WILL Administration Hydromorphone HCl 0.5 mg 08/06/19 21:25 Dilaudid IV Q3H PRN Pain , Severe (7-10) Levetiracetam 750 mg 08/06/19 22:00 08/08/19 21:03 Keppra PO 750 mg BID WILL Administration Metoclopramide HCl 5 mg 08/06/19 21:34 Reglan IV Q6H PRN Nausea And Vomiting Nifedipine 60 mg 08/08/19 11:00 08/08/19 11:58 Procardia Xl PO 60 mg QDAY WILL Administration Ondansetron HCl 4 mg 08/06/19 21:25 Zofran IV Q8H PRN Nausea And Vomiting Oxycodone/Acetaminophen 1 tab 08/06/19 21:25 08/09/19 05:35 Percocet 5/325 PO 1 tab Q6H PRN Administration Pain, Moderate (4-6) Pravastatin Sodium 20 mg 08/06/19 22:00 08/08/19 21:04 Pravachol PO 20 mg QHS WILL Administration Sodium Chloride 10 ml 08/06/19 22:00 08/08/19 21:04 Sodium Chloride Flush Syringe 10 Ml IV 10 ml BID WILL Administration Sodium Chloride 10 ml 08/06/19 21:25 Sodium Chloride Flush Syringe 10 Ml IV PRN PRN LINE FLUSH Thiamine HCl 100 mg 08/07/19 13:00 08/08/19 09:32 Vitamin B-1 PO 100 mg QDAY WILL Administration
--- NOTE | 2019-08-09 08:32 | Progress Note ---
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 with the [place] - renally dose meds - strict I&O - daily weight Zach Marroquin MD [phone] Subjective Date of service: 08/09/19 Principal diagnosis: CKD stage V Interval history: denies acute events overnight Objective - Vital Signs Vital signs: Vital Signs - 12hr 08/08/19 08/08/19 08/08/19 20:33 20:39 20:40 Temperature Pulse Rate Pulse Rate [ 80 Apical] Respiratory 18 18 Rate Respiratory 18 Rate [Bilateral Knee] Blood Pressure O2 Sat by Pulse 96 Oximetry 08/08/19 08/09/19 08/09/19 21:04 00:24 00:25 Temperature 97.7 F Pulse Rate 77 72 Pulse Rate [ Apical] Respiratory 18 Rate Respiratory Rate [Bilateral Knee] Blood Pressure 142/88 124/74 O2 Sat by Pulse 94 Oximetry 08/09/19 08/09/19 08/09/19 03:26 03:28 05:34 Temperature 98.4 F Pulse Rate 76 76 Pulse Rate [ Apical] Respiratory 18 Rate Respiratory Rate [Bilateral Knee] Blood Pressure 125/80 125/80 O2 Sat by Pulse 96 Oximetry 08/09/19 08/09/19 08/09/19 05:35 06:35 07:38 Temperature 97.7 F Pulse Rate 72 Pulse Rate [ Apical] Respiratory 18 18 16 Rate Respiratory Rate [Bilateral Knee] Blood Pressure 140/87 O2 Sat by Pulse 95 Oximetry - General Appearance General appearance: well-developed EENT: ATNC, PERRL, mucous membranes moist Neck: no JVD, no carotid bruit Respiratory: Present: Clear to Ascultation Integumentary: no rash, warm and dry Neurologic: no focal deficit, no asterixis, alert and oriented x3 Musculoskeletal: deferred, other (no edema in BLE) Psychiatric: mood/affect appropriate, cooperative - Lab 08/09/19 05:35 08/09/19 05:35 Most recent lab results Calcium 8.4 mg/dL (8.4-10.2) 08/09/19 05:35 Phosphorus 4.60 mg/dL (2.5-4.5) H 08/09/19 05:35 Magnesium 1.50 mg/dL (1.7-2.3) L 08/08/19 07:10 Urine Creatinine 33.4 mg/dL (0.1-20.0) H 08/08/19 12:15 Urine Sodium 125 mmol/L 08/08/19 12:15 Urine Total Protein 46 mg/dL (5-11.8) H 08/08/19 12:00 Medications & Allergies - Medications Allergies/Adverse Reactions: Allergies No Known Allergies Allergy (Verified 04/09/19 13:12) Home Medications: Home Medications Medication Instructions Recorded Confirmed Last Taken Type Aspirin [Aspirin BABY CHEW TAB] 81 mg PO QDAY #30 tab.chew 11/22/17 08/06/19 04/10/19 Rx Carvedilol [Coreg] 25 mg PO BID #60 tablet 04/14/19 08/06/19 Unknown Rx Furosemide [Lasix TAB] 40 mg PO QDAY #30 tablet 04/14/19 08/06/19 Unknown Rx Pravastatin Sodium [Pravastatin] 20 mg PO QHS #60 tablet 04/14/19 08/06/19 Unknown Rx amLODIPine 10 mg PO QDAY #30 tablet 04/14/19 08/06/19 Unknown Rx hydrALAZINE [Apresoline TAB] 50 mg PO Q8H #90 tablet 04/14/19 08/06/19 Unknown Rx levETIRAcetam [Keppra TAB] 750 mg PO BID #60 tablet 04/14/19 08/06/19 Unknown Rx Active Medications: Generic Name Dose Route Start Last Admin Trade Name Freq PRN Reason Stop Dose Admin Acetaminophen 650 mg 08/06/19 21:25 Tylenol PO Q4H PRN Pain MILD(1-3)/Fever >100.5/TORIBIO Aspirin 81 mg 08/06/19 22:00 08/08/19 09:32 Baby Aspirin PO 81 mg QDAY WILL Administration Benzonatate 100 mg 08/08/19 23:00 08/09/19 05:34 Tessalon Perles PO 08/11/19 22:59 100 mg Q8HR WILL Administration Carvedilol 25 mg 08/06/19 22:00 08/08/19 21:04 Coreg PO 25 mg BID WILL Administration Famotidine 10 mg 08/06/19 22:00 08/08/19 21:03 Pepcid PO 10 mg BID WILL Administration Folic Acid 1 mg 08/07/19 13:00 08/08/19 09:32 Folvite PO 1 mg QDAY WILL Administration Furosemide 40 mg 08/07/19 06:00 08/09/19 05:35 Lasix IV 40 mg 0600,1800 WILL Administration Hydralazine HCl 50 mg 08/06/19 22:00 08/09/19 05:34 Apresoline PO 50 mg Q8H WILL Administration Hydromorphone HCl 0.5 mg 08/06/19 21:25 Dilaudid IV Q3H PRN Pain , Severe (7-10) Levetiracetam 750 mg 08/06/19 22:00 08/08/19 21:03 Keppra PO 750 mg BID WILL Administration Metoclopramide HCl 5 mg 08/06/19 21:34 Reglan IV Q6H PRN Nausea And Vomiting Nifedipine 60 mg 08/08/19 11:00 08/08/19 11:58 Procardia Xl PO 60 mg QDAY WILL Administration Ondansetron HCl 4 mg 08/06/19 21:25 Zofran IV Q8H PRN Nausea And Vomiting Oxycodone/Acetaminophen 1 tab 08/06/19 21:25 08/09/19 05:35 Percocet 5/325 PO 1 tab Q6H PRN Administration Pain, Moderate (4-6) Pravastatin Sodium 20 mg 08/06/19 22:00 08/08/19 21:04 Pravachol PO 20 mg QHS WILL Administration Sodium Chloride 10 ml 08/06/19 22:00 08/08/19 21:04 Sodium Chloride Flush Syringe 10 Ml IV 10 ml BID WILL Administration Sodium Chloride 10 ml 08/06/19 21:25 Sodium Chloride Flush Syringe 10 Ml IV PRN PRN LINE FLUSH Thiamine HCl 100 mg 08/07/19 13:00 08/08/19 09:32 Vitamin B-1 PO 100 mg QDAY WILL Administration
--- NOTE | 2019-08-09 08:53 | Progress Note ---
Assessment and Plan Acute on chronic systolic heart failure CKD Non-Ischemic cardiomyopathy EF 20-25% by echo this admission. no ischemia by MPI 12/2016. Anemia Htn Seizure disorder Tobacco and cocaine abuse Noncompliance Recommend: Continue medical therapy for systolic heart failure and nonischemic cardiomyopathy. Subjective Date of service: 08/09/19 Principal diagnosis: CKD stage V Interval history: No complaints. Creatinine 5.8 today. No plans for dialysis per Nephrology. Objective Vital Signs Temp Pulse Pulse Resp Resp BP Pulse Ox 08/09/19 07:38 97.7 F 72 16 140/87 95 08/09/19 06:35 18 08/09/19 05:35 18 08/09/19 05:34 76 125/80 08/09/19 03:28 98.4 F 08/09/19 03:26 76 18 125/80 96 08/09/19 00:25 97.7 F 08/09/19 00:24 72 18 124/74 94 08/08/19 21:04 77 142/88 08/08/19 20:40 80 18 96 08/08/19 20:39 18 08/08/19 20:33 18 08/08/19 20:06 81 08/08/19 19:39 98.0 F 77 18 142/88 95 08/08/19 17:15 18 136/79 08/08/19 12:13 73 136/87 96 08/08/19 10:00 76 - Physical Examination General: No Apparent Distress HEENT: Positive: PERRL Neck: Positive: neck supple Cardiac: Positive: Reg Rate and Rhythm Lungs: Positive: Decreased Breath Sounds Neuro: Positive: Grossly Intact Extremities: Present: edema - Labs and Meds CBC 08/09/19 Range/Units 05:35 WBC 3.1 L (4.5-11.0) K/mm3 RBC 2.61 L (3.65-5.03) M/mm3 Hgb 8.6 L (11.8-15.2) gm/dl Hct 26.0 L (35.5-45.6) % Plt Count 217 (140-440) K/mm3 Lymph # 0.7 L (1.2-5.4) K/mm3 [place] # 0.4 (0.0-0.8) K/mm3 Eos # 0.0 (0.0-0.4) K/mm3 Baso # 0.0 (0.0-0.1) K/mm3 Comprehensive Metabolic Panel 08/09/19 Range/Units 05:35 Sodium 141 (137-145) mmol/L Potassium 4.5 (3.6-5.0) mmol/L Chloride 110.1 H (98-107) mmol/L Carbon Dioxide 19 L (22-30) mmol/L BUN 67 H (9-20) mg/dL Creatinine 5.8 H (0.8-1.5) mg/dL Glucose 95 (75-100) mg/dL Calcium 8.4 (8.4-10.2) mg/dL
[2019-08-09] MEDS: NIFEdipine XL 60 MG TAB PO SCH (09:05)
[2019-08-09] MEDS: THIAMINE 100 MG TAB PO SCH (09:05)
[2019-08-09] MEDS: levETIRAcetam 500 MG/5 ML ORAL LIQD PO SCH ×2 (09:05→22:24)
[2019-08-09] MEDS: FOLIC ACID 1 MG TAB PO SCH (09:05)
[2019-08-09] MEDS: FAMOTIDINE 10 MG TAB PO SCH ×2 (09:05→22:23)
[2019-08-09] MEDS: carvediloL 25 MG TAB PO SCH ×2 (09:05→22:23)
[2019-08-09] MEDS: ASPIRIN 81 MG TAB CHEW PO SCH (09:05)
[2019-08-09] MEDS: PRAVASTATIN 20 MG TAB PO SCH (22:23)
[2019-08-09] MEDS ORDERED: MAGNESIUM HYDROXIDE (MOM) ORAL LIQD UDC PO ONE (23:30)
[2019-08-10] MEDS: DOCUSATE SODIUM 100 MG CAP PO SCH ×2 (00:12→09:47)
[2019-08-10] MEDS: hydrALAZINE 25 MG TAB PO SCH (06:00)
[2019-08-10] MEDS: BENZONATATE 100 MG CAP PO SCH (06:00)
[2019-08-10] MEDS: oxyCODONE /ACETAMINOPHEN 5-325MG TAB PO PRN ×2 (06:00→12:24)
[2019-08-10] MEDS: FUROSEMIDE 40 MG/4 ML INJ IV SCH (06:00)
[2019-08-10 06:27] LABS: Basophils % (Auto) 0.9 % (0.0-1.8); Eosinophils # (Auto) 0.1 K/mm3 (0.0-0.4); Eosinophils % (Auto) 1.8 % (0.0-4.3); Hematocrit 27.1 % (35.5-45.6); Hemoglobin 8.9 gm/dl (11.8-15.2); Lymphocytes # (Auto) 0.8 K/mm3 (1.2-5.4); Lymphocytes % (Auto) 23.2 % (13.4-35.0); Mean Corpuscular HGB Conc 33 % (32-34); Mean Corpuscular Volume 102 fl (84-94); Monocytes # (Auto) 0.5 K/mm3 (0.0-0.8); Monocytes % (Auto) 14.5 % (0.0-7.3); Platelet Count 226 K/mm3 (140-440); Red Blood Count 2.67 M/mm3 (3.65-5.03); Red Cell Distribution Width 17.5 % (13.2-15.2)
[2019-08-10 07:11] LABS: Calcium 8.3 mg/dL (8.4-10.2)
--- NOTE | 2019-08-10 08:59 | Progress Note ---
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 Zach Marroquin MD [phone] Subjective Date of service: 08/10/19 Principal diagnosis: CKD stage V Objective - Vital Signs Vital signs: Vital Signs - 12hr 08/09/19 08/09/19 08/09/19 22:23 22:25 22:26 Temperature Pulse Rate 81 Respiratory 18 Rate Respiratory 18 Rate [Bilateral Knee] Blood Pressure 145/92 O2 Sat by Pulse Oximetry 08/09/19 08/09/19 08/10/19 23:01 23:26 04:15 Temperature 98.1 F 98.1 F Pulse Rate 76 78 Respiratory 18 18 18 Rate Respiratory Rate [Bilateral Knee] Blood Pressure 143/88 138/92 O2 Sat by Pulse 95 96 Oximetry 08/10/19 08/10/19 06:00 07:00 Temperature Pulse Rate 78 Respiratory 18 18 Rate Respiratory Rate [Bilateral Knee] Blood Pressure 138/92 O2 Sat by Pulse Oximetry - Lab 08/10/19 05:58 08/10/19 05:58 Most recent lab results Calcium 8.3 mg/dL (8.4-10.2) L 08/10/19 05:58 Phosphorus 4.60 mg/dL (2.5-4.5) H 08/10/19 05:58 Magnesium 1.90 mg/dL (1.7-2.3) 08/10/19 05:58 Urine Creatinine 33.4 mg/dL (0.1-20.0) H 08/08/19 12:15 Urine Sodium 125 mmol/L 08/08/19 12:15 Urine Total Protein 46 mg/dL (5-11.8) H 08/08/19 12:00 Medications & Allergies - Medications Allergies/Adverse Reactions: Allergies No Known Allergies Allergy (Verified 04/09/19 13:12) Home Medications: Home Medications Medication Instructions Recorded Confirmed Last Taken Type Aspirin [Aspirin BABY CHEW TAB] 81 mg PO QDAY #30 tab.chew 11/22/17 08/06/19 04/10/19 Rx Carvedilol [Coreg] 25 mg PO BID #60 tablet 04/14/19 08/06/19 Unknown Rx Furosemide [Lasix TAB] 40 mg PO QDAY #30 tablet 04/14/19 08/06/19 Unknown Rx Pravastatin Sodium [Pravastatin] 20 mg PO QHS #60 tablet 04/14/19 08/06/19 Unknown Rx amLODIPine 10 mg PO QDAY #30 tablet 04/14/19 08/06/19 Unknown Rx hydrALAZINE [Apresoline TAB] 50 mg PO Q8H #90 tablet 04/14/19 08/06/19 Unknown Rx levETIRAcetam [Keppra TAB] 750 mg PO BID #60 tablet 04/14/19 08/06/19 Unknown Rx Active Medications: Generic Name Dose Route Start Last Admin Trade Name Freq PRN Reason Stop Dose Admin Acetaminophen 650 mg 08/06/19 21:25 Tylenol PO Q4H PRN Pain MILD(1-3)/Fever >100.5/TORIBIO Aspirin 81 mg 08/06/19 22:00 08/09/19 09:05 Baby Aspirin PO 81 mg QDAY WILL Administration Benzonatate 100 mg 08/08/19 23:00 08/10/19 06:00 Tessalon Perles PO 08/11/19 22:59 100 mg Q8HR WILL Administration Carvedilol 25 mg 08/06/19 22:00 08/09/19 22:23 Coreg PO 25 mg BID WILL Administration Docusate Sodium 100 mg 08/09/19 23:45 08/10/19 00:12 Colace PO 100 mg BID WILL Administration Famotidine 10 mg 08/06/19 22:00 08/09/19 22:23 Pepcid PO 10 mg BID WILL Administration Folic Acid 1 mg 08/07/19 13:00 08/09/19 09:05 Folvite PO 1 mg QDAY WILL Administration Furosemide 40 mg 08/07/19 06:00 08/10/19 06:00 Lasix IV 40 mg 0600,1800 WILL Administration Hydralazine HCl 50 mg 08/06/19 22:00 08/10/19 06:00 Apresoline PO 50 mg Q8H WILL Administration Hydromorphone HCl 0.5 mg 08/06/19 21:25 08/09/19 09:06 Dilaudid IV 0.5 mg Q3H PRN Administration Pain , Severe (7-10) Levetiracetam 750 mg 08/06/19 22:00 08/09/19 22:24 Keppra PO 750 mg BID WILL Administration Metoclopramide HCl 5 mg 08/06/19 21:34 Reglan IV Q6H PRN Nausea And Vomiting Nifedipine 60 mg 08/08/19 11:00 08/09/19 09:05 Procardia Xl PO 60 mg QDAY WILL Administration Ondansetron HCl 4 mg 08/06/19 21:25 Zofran IV Q8H PRN Nausea And Vomiting Oxycodone/Acetaminophen 1 tab 08/06/19 21:25 08/10/19 06:00 Percocet 5/325 PO 1 tab Q6H PRN Administration Pain, Moderate (4-6) Pravastatin Sodium 20 mg 08/06/19 22:00 08/09/19 22:23 Pravachol PO 20 mg QHS WILL Administration Sodium Chloride 10 ml 08/06/19 22:00 08/09/19 22:27 Sodium Chloride Flush Syringe 10 Ml IV 10 ml BID WILL Administration Sodium Chloride 10 ml 08/06/19 21:25 Sodium Chloride Flush Syringe 10 Ml IV PRN PRN LINE FLUSH Thiamine HCl 100 mg 08/07/19 13:00 08/09/19 09:05 Vitamin B-1 PO 100 mg QDAY WILL Administration
[2019-08-10 09:01] VITALS: BP 139/87
--- NOTE | 2019-08-10 09:39 | Progress Note ---
Assessment and Plan Acute on chronic systolic heart failure CKD -creatinine of 5.8 today; no plans for dialysis per Nephrology Non-Ischemic cardiomyopathy EF 20-25% by echo this admission. no ischemia by MPI 12/2016. Anemia Htn Seizure disorder Tobacco and cocaine abuse Noncompliance Recommend: Sodium/fluid restriction. Continue medical therapy for systolic heart failure and nonischemic cardiomyopathy. Subjective Date of service: 08/10/19 Principal diagnosis: CKD stage V Interval history: Patient is resting comfortably in bed. He has no complaints. Objective Vital Signs Temp Pulse Resp Resp BP Pulse Ox 08/10/19 08:40 98.4 F 73 18 139/87 97 08/10/19 07:00 18 08/10/19 06:00 78 18 138/92 08/10/19 04:15 98.1 F 78 18 138/92 96 08/09/19 23:26 18 08/09/19 23:01 98.1 F 76 18 143/88 95 08/09/19 22:26 18 08/09/19 22:25 18 08/09/19 22:23 81 145/92 08/09/19 20:42 18 98 08/09/19 20:24 79 08/09/19 19:45 98.3 F 81 16 145/92 96 08/09/19 16:55 76 151/98 97 08/09/19 11:40 98.6 F 64 18 129/89 95 08/09/19 10:00 76 - Physical Examination General: No Apparent Distress HEENT: Positive: PERRL Neck: Positive: neck supple Cardiac: Positive: Reg Rate and Rhythm Lungs: Positive: Decreased Breath Sounds Neuro: Positive: Grossly Intact Abdomen: Positive: Soft - Labs and Meds CBC 08/10/19 Range/Units 05:58 WBC 3.4 L (4.5-11.0) K/mm3 RBC 2.67 L (3.65-5.03) M/mm3 Hgb 8.9 L (11.8-15.2) gm/dl Hct 27.1 L (35.5-45.6) % Plt Count 226 (140-440) K/mm3 Lymph # 0.8 L (1.2-5.4) K/mm3 [place] # 0.5 (0.0-0.8) K/mm3 Eos # 0.1 (0.0-0.4) K/mm3 Baso # 0.0 (0.0-0.1) K/mm3 Comprehensive Metabolic Panel 08/10/19 Range/Units 05:58 Sodium 142 (137-145) mmol/L Potassium 4.4 (3.6-5.0) mmol/L Chloride 108.0 H (98-107) mmol/L Carbon Dioxide 21 L (22-30) mmol/L BUN 71 H (9-20) mg/dL Creatinine 5.8 H (0.8-1.5) mg/dL Glucose 100 (75-100) mg/dL Calcium 8.3 L (8.4-10.2) mg/dL
[2019-08-10] MEDS: carvediloL 25 MG TAB PO SCH (09:47)
[2019-08-10] MEDS: FAMOTIDINE 10 MG TAB PO SCH (09:47)
[2019-08-10] MEDS: NIFEdipine XL 60 MG TAB PO SCH (09:47)
[2019-08-10] MEDS: FOLIC ACID 1 MG TAB PO SCH (09:47)
[2019-08-10] MEDS: levETIRAcetam 500 MG/5 ML ORAL LIQD PO SCH (09:47)
[2019-08-10] MEDS: THIAMINE 100 MG TAB PO SCH (09:47)
[2019-08-10] MEDS: ASPIRIN 81 MG TAB CHEW PO SCH (09:47)
--- NOTE | 2019-08-10 12:21 | Discharge Summary ---
Providers - Providers Date of Admission: 08/06/19 13:47 Attending physician: ROSETTE RUBIO MD 08/06/19 12:34 Consult to Physician [CONS] Stat Comment: Consulting Provider: ALE SMITH Physician Instructions: Reason For Exam: CHF 08/07/19 12:28 Consult to Physician [CONS] Routine Comment: spoke with DR Anaya at 1251 Consulting Provider: ROBERTO ANAYA Physician Instructions: Reason For Exam: ARF, you saw in 08/09/19 08:18 Consult to Dietitian/Nutrition [CONS] Routine Physician Instructions: Reason For Exam: Reason for Consult: Malnutrition [facility] Reason for admission: CHF Condition: Stable Hospital course: Patient is 58 yo man with a history of HTN, OA, Sz, tobacco dependency, CHF, CKD alcohol and cocaine abuse who presented to [facility] ED with SOB. He was admitted for CHF exacerbation due to non-compliance. * TTE Conclusions: 4 chambers dilated CM, global left ventricular systolic function is severely decreased, estimated EF 20-25%, moderate concentric Left Ventricular hyperthropathy, mild to moderate MR, mild AR, mild to moderate TR, moderate pulmonary hypertension, RVSP is calculated at 45 mmHg. * Patient was seen by cardiology and Nephrology, CARDIOLOGY RECOMMNEDED Guideline directed medical therapy as previously outlined for chronic systolic heart failure. Nephrology adjusted lasix and advised patient that he will likely need Dialysis in the near future. Patient verbalized understanding * 15 mins of tobacco cessation was discussed in detail. * He is stable for discharge and follow with team out patient * He is ambulating without worsening shortness of breath Acute on chronic systolic heart failure: consult Cardiology, difficult decision regarding diuretics as patient is in ARF, y Hyperkalemia: treated with kayexalate, HUNTER/CKD 3, secondary to vasomotor nephropathy creatinine was 4.7 when he was discharge on 04/14/19 but was admitted with Cr of 3.3 on 04/09/19, vasomotor nephropathy: UDS positive for Cocaine: Counseling done. Seziure disorder: None noted hear Hypomagemesia: repleted Mild malnutrition: consult Cafe Assistant Non ischemic cardiomyopathy Non compliance with meds Macrocytic anemia, suspect alcohol related: Disposition: - TO HOME OR SELFCARE Time spent for discharge: 35 MINS Core Measure Documentation - Palliative Care Palliative Care/ Comfort Measures: Not Applicable - Core Measures Any of the following diagnoses?: heart failure - Heart Failure Discharge Requirements IRMA/ARB for LVSD if EF <40%: No Reason for no IRMA/ARB: Renal impairment Beta vish at discharge: Yes Exam - Physical Exam Narrative exam: VITAL SIGNS: Reviewed. GENERAL: The patient appears normally developed, Vital signs as documented. HEAD: No signs of head trauma. EYES: Pupils are equal. Extraocular motions intact. EARS: Hearing grossly intact. MOUTH: Oropharynx is normal. NECK: No adenopathy, no JVD. CHEST: Chest with Fine rales breath sounds bilaterally. No wheezes, rales, or rhonchi. CARDIAC: Regular rate and rhythm. S1 and S2, without murmurs, gallops, or rubs. VASCULAR: No Edema. Peripheral pulses normal and equal in all extremities. ABDOMEN: Soft, non tender and non distended. No rebound or guarding, and no masses palpated. Bowel Sounds normal. MUSCULOSKELETAL: Good range of motion of all major joints. Extremities without clubbing, cyanosis or edema. NEUROLOGIC EXAM: Alert and oriented x 3 No focal sensory or strength deficits. Speech normal. Follows commands. PSYCHIATRIC: Mood normal. SKIN: detail exam as documented in skin assessment - Constitutional Vitals: Temp Pulse Resp BP Pulse Ox 98.4 F 73 18 139/87 97 08/10/19 08:40 08/10/19 10:00 08/10/19 10:00 08/10/19 09:47 08/10/19 10:00 Plan Activity: advance as tolerated, no driving until cleared by PCP, fall precautions Diet: low fat, low salt Special Instructions: restrict fluid intake to (1200CC/DAY), record daily weights, record daily BP diary, smoking cessation Care Plan Goals: IMPROVE SHORTNESS OF BREATH Plan of Treatment: CONTINUE UPDATED MEDS, AVOID TOBACCO Health Concerns: WORSENING RENAL FUNCTION Follow up with: DAVIS CASTANO MD [Primary Care Provider] - 3-5 Days ALE SMITH MD [Staff Physician] - 7 Days ALISON ROCHA MD [Staff Physician] - 7 Days Prescriptions: Benzonatate [Tessalon Perles] 100 mg PO Q8HR #10 capsule
== END 2019-08-10 13:26 | disposition home or self-care (01) | DRG 291 ==
LOC: ED 08:06 → 4A 13:47
PROVIDERS: ADMIT Internal Medicine; ATTEND Internal Medicine
DX: I13.0 Hypertensive heart and chronic kidney disease with heart failure and stage 1 through stage 4 chronic kidney disease, or unspecified chronic kidney disease (principal); N17.0 Acute kidney failure with tubular necrosis; I50.43 Acute on chronic combined systolic (congestive) and diastolic (congestive) heart failure; E44.1 Mild protein-calorie malnutrition; I42.0 Dilated cardiomyopathy; N18.3 Chronic kidney disease, stage 3 (moderate); F14.10 Cocaine abuse, uncomplicated; D50.8 Other iron deficiency anemias; G40.909 Epilepsy, unspecified, not intractable, without status epilepticus; E78.2 Mixed hyperlipidemia; F10.10 Alcohol abuse, uncomplicated; Y90.9 Presence of alcohol in blood, level not specified; E87.5 Hyperkalemia; F17.210 Nicotine dependence, cigarettes, uncomplicated; Z71.6 Tobacco abuse counseling; Z79.82 Long term (current) use of aspirin; Z79.899 Other long term (current) drug therapy; Z82.49 Family history of ischemic heart disease and other diseases of the circulatory system; Z68.24 Body mass index [BMI] 24.0-24.9, adult; Z91.19 Patient's noncompliance with other medical treatment and regimen
CPT/HCPCS: 36415; 71045; 80048; 80053; 80061; 80307; 81001; 82570; 83036; 83690; 83735; 83880; 84100; 84156; 84300; 84484; 85025; 85027; 85610; 85730; 89050; 93005; 93010; 93306; 96360; G0378; A9270-GY; J0360; J1170; J1940

== ENCOUNTER 2019-08-24 06:05 | Inpatient (IN) | payer OTHER ==
[2019-08-24] MEDS ORDERED: IPRATROPIUM 0.02% NEBU 2.5 ML IH ONE (06:16)
[2019-08-24] MEDS ORDERED: ALBUTEROL 2.5 MG/3 ML NEBU IH ONE (06:16)
[2019-08-24] MEDS ORDERED: ASPIRIN 81 MG TAB CHEW PO ONE (06:33)
[2019-08-24] MEDS ORDERED: methylPREDNISolone Sod Succinate 125 MG/2 ML INJ IV ONE (06:33)
--- NOTE | 2019-08-24 06:33 | Emergency Department Report ---
ED General Adult HPI - General Chief complaint: Dyspnea/Respdistress Stated complaint: PAPITO/HIGH BP Time Seen by Provider: 08/24/19 06:12 Source: patient, EMS ( EMS documentation not available at time of chart dictation ), RN notes reviewed, old records reviewed Mode of arrival: Stretcher Limitations: Physical Limitation - History of Present Illness Initial comments: This is a pleasant 58-year-old gentleman. He does not believe that he currently has a primary care doctor His past medical history includes hypertension, osteoarthritis, seizure, tobacco dependency, congestive heart failure, ejection fraction 20-25%, CK D, alcohol and cocaine dependence/abuse Patient presents to the ER with the complaints of abdominal cramping, swelling, bilateral lower extremity cramping, swelling, shortness of breath without chest pain. He was recently admitted to this hospital for exacerbation of CK D and congestive heart failure, and apparently has not been able to take his outpatient prescription medications. His symptoms are constant, worsens with ph ysical exertion and decreased with rest. He endorses chronic orthopnea. He makes no complaint of chest pain. He makes no complaint of hematemesis, bright red blood per rectum, he does not endorse any urinary symptoms. -: Gradual Location: left, right, lower extremity Radiation: non-radiation Severity scale (0 -10): 0 Quality: aching Consistency: constant Improves with: rest Worsens with: movement - Related Data Previous Rx's Medication Instructions Recorded Last Taken Type Aspirin [Aspirin BABY CHEW TAB] 81 mg PO QDAY #30 tab.chew 11/22/17 04/10/19 Rx amLODIPine 10 mg PO QDAY #30 tablet 04/14/19 Unknown Rx carvediloL [Coreg] 25 mg PO BID #60 tablet 04/14/19 Unknown Rx hydrALAZINE [Apresoline TAB] 50 mg PO Q8H #90 tablet 04/14/19 Unknown Rx Benzonatate [Tessalon Perles] 100 mg PO Q8HR #10 capsule 08/10/19 Unknown Rx Folic Acid [Folvite] 1 mg PO QDAY #30 tablet 08/10/19 Unknown Rx Furosemide [Lasix TAB] 40 mg PO QDAY #30 tablet 08/10/19 Unknown Rx NIFEdipine XL [Procardia Xl] 60 mg PO QDAY #30 tablet 08/10/19 Unknown Rx Pravastatin Sodium [Pravastatin] 20 mg PO QHS #60 tablet 08/10/19 Unknown Rx Thiamine [Vitamin B-1] 100 mg PO QDAY #30 tablet 08/10/19 Unknown Rx levETIRAcetam [Keppra TAB] 750 mg PO BID #60 tablet 08/10/19 Unknown Rx Allergies Allergy/AdvReac Type Severity Reaction Status Date / Time No Known Allergies Allergy Verified 04/09/19 13:12 ED Review of Systems ROS: Stated complaint: PAPITO/HIGH BP Other details as noted in HPI Constitutional: malaise ENT: congestion Respiratory: shortness of breath, SOB with exertion, SOB at rest, wheezing Cardiovascular: edema. denies: syncope Gastrointestinal: abdominal pain. denies: nausea, vomiting Genitourinary: denies: urgency Musculoskeletal: joint swelling, arthralgia, myalgia Skin: denies: lesions Neurological: weakness Hematological/Lymphatic: denies: easy bleeding ED Past Medical Hx - Past Medical History Previous Medical History?: Yes Hx Hypertension: Yes Hx Congestive Heart Failure: Yes Hx Arthritis: Yes (knees) Hx Seizures: Yes Hx COPD: Yes - Surgical History Past Surgical History?: No - Social History Smoking Status: Current Every Day Smoker Substance Use Type: Alcohol - Medications Home Medications: Home Medications Medication Instructions Recorded Confirmed Last Taken Type Aspirin [Aspirin BABY CHEW TAB] 81 mg PO QDAY #30 tab.chew 11/22/17 08/24/19 Rx amLODIPine 10 mg PO QDAY #30 tablet 04/14/19 08/24/19 Unknown Rx carvediloL [Coreg] 25 mg PO BID #60 tablet 04/14/19 08/24/19 Unknown Rx hydrALAZINE [Apresoline TAB] 50 mg PO Q8H #90 tablet 04/14/19 08/24/19 Unknown Rx Benzonatate [Tessalon Perles] 100 mg PO Q8HR #10 capsule 08/10/19 08/24/19 Unknown Rx Folic Acid [Folvite] 1 mg PO QDAY #30 tablet 08/10/19 08/24/19 Unknown Rx Furosemide [Lasix TAB] 40 mg PO QDAY #30 tablet 08/10/19 08/24/19 Unknown Rx NIFEdipine XL [Procardia Xl] 60 mg PO QDAY #30 tablet 08/10/19 08/24/19 Unknown Rx Pravastatin Sodium [Pravastatin] 20 mg PO QHS #60 tablet 08/10/19 08/24/19 Unknown Rx Thiamine [Vitamin B-1] 100 mg PO QDAY #30 tablet 08/10/19 08/24/19 Unknown Rx levETIRAcetam [Keppra TAB] 750 mg PO BID #60 tablet 08/10/19 08/24/19 Unknown Rx ED Physical Exam - General Limitations: Physical Limitation General appearance: alert, anxious - Head Head exam: Present: atraumatic, normocephalic - Eye Eye exam: Present: normal appearance, EOMI. Absent: nystagmus - ENT ENT exam: Present: normal exam, normal orophraynx, mucous membranes moist, normal external ear exam - Neck Neck exam: Present: normal inspection, full ROM. Absent: tenderness, meningismus - Respiratory Respiratory exam: Present: respiratory distress, rales - Cardiovascular Cardiovascular Exam: Present: normal rhythm, tachycardia, normal heart sounds, JVD. Absent: systolic murmur, diastolic murmur, rubs, gallop - GI/Abdominal GI/Abdominal exam: Present: soft. Absent: distended, tenderness, guarding, rebound, rigid, pulsatile mass - Rectal Rectal exam: Present: deferred - Extremities Exam Extremities exam: Present: normal inspection, full ROM, pedal edema (4+ edema bilateral lower extremities), other (2+ pulses noted in the bilateral upper, lower extremities. There is no long bone tenderness. Musculoskeletal compartments are soft. The pelvis is stable.). Absent: calf tenderness - Back Exam Back exam: Present: normal inspection, full ROM. Absent: tenderness, CVA tenderness (R), CVA tenderness (L), paraspinal tenderness, vertebral tenderness - Neurological Exam Neurological exam: Present: alert, other (there is no facial droop. The tongue is midline. Extraocular movements are intact bilaterally. Patient speaking in full complete sentences. Shoulder shrug is intact bilaterally. Hearing is grossly intact bilaterally. Visual acuity intact to finger counting and color perception at a close distance. 5/5 strength 4 extremities. Sensation intact to light touch in 4 extremities.). Absent: motor sensory deficit - Psychiatric Psychiatric exam: Present: anxious - Skin Skin exam: Present: warm, dry, intact, normal color. Absent: rash ED Course Vital Signs 08/24/19 08/24/19 08/24/19 06:12 06:20 06:33 Temperature 98.3 F Pulse Rate 88 82 Pulse Rate [ 88 Anterior Bilateral Throughout] Respiratory 24 25 H Rate Respiratory 17 Rate [Anterior Bilateral Throughout] Blood Pressure 196/127 [Right] O2 Sat by Pulse 98 100 Oximetry 08/24/19 06:59 Temperature Pulse Rate Pulse Rate [ Anterior Bilateral Throughout] Respiratory 20 Rate Respiratory Rate [Anterior Bilateral Throughout] Blood Pressure [Right] O2 Sat by Pulse 95 Oximetry - Reevaluation(s) Reevaluation #1: 08/24/19 07:30 Laboratory studies confirm renal insufficiency, metabolic acidosis, low-grade troponin leak, likely type II troponin leak, and hypomagnesemia. Hospital ph ysician, Dr. Honeycutt to admit patient ED Medical Decision Making - Lab Data Result diagrams: 08/24/19 06:30 08/24/19 06:30 Vital Signs 08/24/19 08/24/19 08/24/19 06:12 06:20 06:33 Temperature 98.3 F Pulse Rate 88 82 Pulse Rate [ 88 Anterior Bilateral Throughout] Respiratory 24 25 H Rate Respiratory 17 Rate [Anterior Bilateral Throughout] Blood Pressure 196/127 [Right] O2 Sat by Pulse 98 100 Oximetry 08/24/19 06:59 Temperature Pulse Rate Pulse Rate [ Anterior Bilateral Throughout] Respiratory 20 Rate Respiratory Rate [Anterior Bilateral Throughout] Blood Pressure [Right] O2 Sat by Pulse 95 Oximetry Lab Results 08/24/19 Range/Units 06:30 WBC 4.4 L (4.5-11.0) K/mm3 RBC 2.70 L (3.65-5.03) M/mm3 Hgb 9.0 L (11.8-15.2) gm/dl Hct 27.4 L (35.5-45.6) % MCV 102 H (84-94) fl MCH 33 H (28-32) pg MCHC 33 (32-34) % RDW 16.9 H (13.2-15.2) % Plt Count 230 (140-440) K/mm3 Vital Signs 08/24/19 08/24/19 08/24/19 06:12 06:20 06:33 Temperature 98.3 F Pulse Rate 88 82 Pulse Rate [ 88 Anterior Bilateral Throughout] Respiratory 24 25 H Rate Respiratory 17 Rate [Anterior Bilateral Throughout] Blood Pressure 196/127 [Right] O2 Sat by Pulse 98 100 Oximetry 08/24/19 06:59 Temperature Pulse Rate Pulse Rate [ Anterior Bilateral Throughout] Respiratory 20 Rate Respiratory Rate [Anterior Bilateral Throughout] Blood Pressure [Right] O2 Sat by Pulse 95 Oximetry Lab Results 08/24/19 08/24/19 08/24/19 Range/Units 06:30 06:30 06:30 WBC 4.4 L (4.5-11.0) K/mm3 RBC 2.70 L (3.65-5.03) M/mm3 Hgb 9.0 L (11.8-15.2) gm/dl Hct 27.4 L (35.5-45.6) % MCV 102 H (84-94) fl MCH 33 H (28-32) pg MCHC 33 (32-34) % RDW 16.9 H (13.2-15.2) % Plt Count 230 (140-440) K/mm3 PT 13.8 (12.2-14.9) Sec. INR 1.07 (0.87-1.13) APTT 27.8 (24.2-36.6) Sec. Sodium 147 H (137-145) mmol/L Potassium 4.7 (3.6-5.0) mmol/L Chloride 115.5 H (98-107) mmol/L Carbon Dioxide 15 L (22-30) mmol/L Anion Gap 21 mmol/L BUN 71 H (9-20) mg/dL Creatinine 6.4 H (0.8-1.5) mg/dL Estimated GFR 11 ml/min BUN/Creatinine Ratio 11 % Glucose 120 H (75-100) mg/dL Calcium 7.8 L (8.4-10.2) mg/dL Magnesium 1.50 L (1.7-2.3) mg/dL Total Bilirubin < 0.20 (0.1-1.2) mg/dL AST 25 (5-40) units/L ALT 45 (7-56) units/L Alkaline Phosphatase 165 H (35-129) units/L Total Creatine Kinase (55-170) units/L Troponin T 0.031 H (0.00-0.029) ng/mL Total Protein 6.5 (6.3-8.2) g/dL Albumin 3.7 L (3.9-5) g/dL Albumin/Globulin Ratio 1.3 % Triglycerides 65 (2-149) mg/dL Cholesterol 127 (50-199) mg/dL LDL Cholesterol Direct 69 (50-130) mg/dL HDL Cholesterol 53 (40-59) mg/dL Cholesterol/HDL Ratio 2.39 % Urine Bilirubin (Negative) Urine RBC (Auto) (0.0-6.0) /HPF 08/24/19 08/24/19 Range/Units 06:30 Unknown WBC (4.5-11.0) K/mm3 RBC (3.65-5.03) M/mm3 Hgb (11.8-15.2) gm/dl Hct (35.5-45.6) % MCV (84-94) fl MCH (28-32) pg MCHC (32-34) % RDW (13.2-15.2) % Plt Count (140-440) K/mm3 PT (12.2-14.9) Sec. INR (0.87-1.13) APTT (24.2-36.6) Sec. Sodium (137-145) mmol/L Potassium (3.6-5.0) mmol/L Chloride (98-107) mmol/L Carbon Dioxide (22-30) mmol/L Anion Gap mmol/L BUN (9-20) mg/dL Creatinine (0.8-1.5) mg/dL Estimated GFR ml/min BUN/Creatinine Ratio % Glucose (75-100) mg/dL Calcium (8.4-10.2) mg/dL Magnesium (1.7-2.3) mg/dL Total Bilirubin (0.1-1.2) mg/dL AST (5-40) units/L ALT (7-56) units/L Alkaline Phosphatase (35-129) units/L Total Creatine Kinase 154 (55-170) units/L Troponin T (0.00-0.029) ng/mL Total Protein (6.3-8.2) g/dL Albumin (3.9-5) g/dL Albumin/Globulin Ratio % Triglycerides (2-149) mg/dL Cholesterol (50-199) mg/dL LDL Cholesterol Direct (50-130) mg/dL HDL Cholesterol (40-59) mg/dL Cholesterol/HDL Ratio % Urine Bilirubin Neg (Negative) Urine RBC (Auto) 2.0 (0.0-6.0) /HPF - EKG Data -: EKG Interpreted by Hi EKG shows normal: sinus rhythm Rate: normal - EKG Data 08/24/19 07:07 The EKG today shows a sinus rhythm, 58 bpm, there is a left axis deviation, the QTC is 458 ms, there is poor R-wave progression, numerous T-wave abnormalities, the EKG is abnormal, it appears to be unchanged from prior, with the exception of new left axis deviation, the EKG is not consistent with a STEMI - Radiology Data Radiology results: pending, image reviewed interpreted by me: X-ray the chest shows enlarged cardiac silhouette, pulmonary vascular congestion - Medical Decision Making Differential diagnosis, including but not limited to: Congestive heart failure, cardiorenal syndrome, medication noncompliance, electrolyte derangement, pneumonia, COPD exacerbation Assessment and plan: 58-year-old gentleman, with crackles and rales, jugular venous distention, impressive lower extremity edema, orthopnea, hypertensive urgency with blood pressure in the low 200s systolic, suggestive of pulmonary edema, cardiorenal syndrome. He is otherwise afebrile. The patient will be started on BiPAP therapy, and nitroglycerin drip. He is endorsing musculoskeletal and abdominal wall pain secondary to fluid overload. He'll be given a small dose of morphine for his pain. He appears to be improving from a respiratory standpoint on the aforementioned interventions. We have recommended admission to the medical service for optimization, and management of the aforementioned derangement. He is amenable to this plan of care. Critical Care Time: Yes Critical care time in (mins) excluding proc time.: 35 Critical care attestation.: If time is entered above; I have spent that time in minutes in the direct care of this critically ill patient, excluding procedure time. ED Disposition Clinical Impression: CHF exacerbation, COPD exacerbation, Cardiorenal syndrome with renal failure Disposition: OP ADMIT IP TO THIS HOSP Is pt being admited?: Yes Does the pt Need Aspirin: Yes Condition: Serious Instructions: Chronic Obstructive Pulmonary Disease (ED)
[2019-08-24 06:57] LABS: Hematocrit 27.4 % (35.5-45.6); Mean Corpuscular HGB Conc 33 % (32-34); Mean Corpuscular Volume 102 fl (84-94); Platelet Count 230 K/mm3 (140-440); Red Cell Distribution Width 16.9 % (13.2-15.2)
[2019-08-24] MEDS ORDERED: NITROGLYCERIN DRIP 50 MG/250 ML BOTTLE IV SCH (07:00)
[2019-08-24] MEDS ORDERED: MORPHINE 4 MG/1 ML INJ IV ONE (07:09)
[2019-08-24 07:10] LABS: INR 1.07 (0.87-1.13)
[2019-08-24 07:12] LABS: Partial Thromboplastin Time 27.8 Sec. (24.2-36.6)
[2019-08-24 07:16] LABS: Alanine Aminotransferase 45 units/L (7-56); Albumin 3.7 g/dL (3.9-5); BUN/Creatinine Ratio 11; Blood Urea Nitrogen 71 mg/dL (9-20); Calcium 7.8 mg/dL (8.4-10.2); Hemolysis Index 4
--- NOTE | 2019-08-24 07:22 | XRay Report ---
CHEST 1 VIEW, 08/24/2019 6:31 AM CLINICAL INFORMATION/INDICATION: Shortness of breath COMPARISON: Chest radiograph, 08/06/2019 FINDINGS: SUPPORT DEVICES: None. HEART: There is stable moderate enlargement of the cardiac silhouette. LUNGS/PLEURA: Faint bilateral interstitial edema is again noted. There is a focal 2 cm irregular dens ity in the right upper lobe. There is no large pleural effusion or pneumothorax. ADDITIONAL FINDINGS: No additional acute findings. IMPRESSION: 1. Cardiac enlargement with mild interstitial edema. 2. Right upper lobe irregular density. Recommend CT of the chest for better anatomic evaluation when the patient's clinical condition permits. Signer Name: Caridad Kulkarni MD Signed: 08/24/2019 7:18 AM Workstation Name: [id number]
[2019-08-24 07:28] LABS: Chol/HDL Ratio 2.39 %; HDL Cholesterol 53 mg/dL (40-59); LDL Cholesterol,Direct 69 mg/dL (50-130)
[2019-08-24 07:28] LABS: Bilirubin,Urine NEG (Negative); Blood,Urine SM (Negative); Color,Urine Yellow (Yellow); Urobilinogen,Urine < 2.0 mg/dL (<2.0)
[2019-08-24] MEDS ORDERED: MAGNESIUM SULFATE 2 GM/50 ML BAG IV ONE (07:29)
[2019-08-24] MEDS ORDERED: FUROSEMIDE 100 MG/10 ML INJ IV ONE (07:29)
[2019-08-24 07:34] LABS: Protein,Urine >2000 mg dL mg/dL (Negative)
[2019-08-24] MEDS ORDERED: levETIRAcetam 500 MG TAB PO ONE (09:36)
[2019-08-24] MEDS ORDERED: carvediloL 25 MG TAB ONE (09:37)
[2019-08-24] MEDS ORDERED: hydrALAZINE 25 MG TAB ONE (09:37)
--- NOTE | 2019-08-24 09:41 | History and Physical Report ---
History of Present Illness Date of examination: 08/24/19 Date of admission: 08/24/19 07:31 Chief complaint: Shortness of breath History of present illness: Patient is 58 yo with hypertension, chronic systolic CHF, [id number] disorder. He presents with shortness of breath and leg swelling. He denies chest pain. he was just discharged from here exactly 2 weeks ago on 08/10/19. he states he did not fill any of prescriptions including lasix. In ED, he was diagnosed with acute respiratory failure, was put on BIPAP. CXR revealed pulmonary edema, CHF exacerbation. He was given Lasix iv. Also BP was 196/127 so was started on nitroglycerin drip. Patient now feels better, less shortness of breath, BP improved. Orders put in to admit to ICU. Past History Past Medical History: heart failure (Chronic systolic CHF), hypertension, renal failure (CKD), seizures, other (Medical noncompliance) Past Surgical History: No surgical history Social history: , smoking, full code Family history: hypertension Medications and Allergies Allergies Allergy/AdvReac Type Severity Reaction Status Date / Time No Known Allergies Allergy Verified 04/09/19 13:12 Home Medications Medication Instructions Recorded Confirmed Last Taken Type Aspirin [Aspirin BABY CHEW TAB] 81 mg PO QDAY #30 tab.chew 11/22/17 08/24/19 04/10/19 Rx amLODIPine 10 mg PO QDAY #30 tablet 04/14/19 08/24/19 Unknown Rx carvediloL [Coreg] 25 mg PO BID #60 tablet 04/14/19 08/24/19 Unknown Rx hydrALAZINE [Apresoline TAB] 50 mg PO Q8H #90 tablet 04/14/19 08/24/19 Unknown Rx Benzonatate [Tessalon Perles] 100 mg PO Q8HR #10 capsule 08/10/19 08/24/19 Unknown Rx Folic Acid [Folvite] 1 mg PO QDAY #30 tablet 08/10/19 08/24/19 Unknown Rx Furosemide [Lasix TAB] 40 mg PO QDAY #30 tablet 08/10/19 08/24/19 Unknown Rx NIFEdipine XL [Procardia Xl] 60 mg PO QDAY #30 tablet 08/10/19 08/24/19 Unknown Rx Pravastatin Sodium [Pravastatin] 20 mg PO QHS #60 tablet 08/10/19 08/24/19 Unknown Rx Thiamine [Vitamin B-1] 100 mg PO QDAY #30 tablet 08/10/19 08/24/19 Unknown Rx levETIRAcetam [Keppra TAB] 750 mg PO BID #60 tablet 08/10/19 08/24/19 Unknown Rx Active Meds: Active Medications Aspirin (Baby Aspirin) 81 mg PO QDAY WILL Carvedilol (Coreg) 25 mg PO BID WILL Folic Acid (Folvite) 1 mg PO QDAY WILL Furosemide (Lasix) 40 mg PO QDAY WILL Hydralazine HCl (Apresoline) 50 mg PO Q8HR WILL Nitroglycerin/Dextrose (Tridil Drip 50mg/250ml) 50 mg in 250 mls @ 3 mls/hr IV TITR WILL; Protocol Last Titration: 08/24/19 07:33 Dose: 140 mcg/min, 42 mls/hr Documented by: Levetiracetam (Keppra) 750 mg PO BID WILL Nifedipine (Procardia Xl) 60 mg PO QDAY WILL Pravastatin Sodium (Pravachol) 20 mg PO QHS WILL Thiamine HCl (Vitamin B-1) 100 mg PO QDAY WILL Review of Systems All systems: negative (No fever, no headache, no chest pain. All other systems reviewed and are negative.) Exam - Physical Exam Narrative exam: Gen: Not in acute distress, lying in bed,BIPAP on HEENT: Normocephalic, atraumatic Neck: supple, no JVD Heart: S1 and S2 reg, no murmurs, rubs or gallop Lungs: Bilateral basal crackles, no wheezing, Abd: soft, non tender, non distended, normal BS, Ext: Bilateral edema of legs, no clubbing, no cyanosis Neuro: Awake, alert, oriented X 3, No focal neurological signs - Constitutional Vitals: Temp Pulse Resp BP Pulse Ox 98.3 F 84 16 180/114 96 08/24/19 06:12 08/24/19 08:02 08/24/19 08:02 08/24/19 08:02 08/24/19 08:02 Results - Labs CBC & Chem 7: 08/24/19 06:30 08/24/19 06:30 Labs: Abnormal lab results 08/24/19 08/24/19 Range/Units 06:30 06:30 WBC 4.4 L (4.5-11.0) K/mm3 RBC 2.70 L (3.65-5.03) M/mm3 Hgb 9.0 L (11.8-15.2) gm/dl Hct 27.4 L (35.5-45.6) % MCV 102 H (84-94) fl MCH 33 H (28-32) pg RDW 16.9 H (13.2-15.2) % Sodium 147 H (137-145) mmol/L Chloride 115.5 H (98-107) mmol/L Carbon Dioxide 15 L (22-30) mmol/L BUN 71 H (9-20) mg/dL Creatinine 6.4 H (0.8-1.5) mg/dL Glucose 120 H (75-100) mg/dL Calcium 7.8 L (8.4-10.2) mg/dL Magnesium 1.50 L (1.7-2.3) mg/dL Alkaline Phosphatase 165 H (35-129) units/L Troponin T 0.031 H (0.00-0.029) ng/mL Albumin 3.7 L (3.9-5) g/dL Assessment and Plan Acute respiratory failure due to CHF exacerbation Admit Supplemental Oxygen currently on BIPAP Hope to wean off today Acute on chronic systolic CHF Lasix iv given in ED consult Cardiology Patient states he has been non-compliant, did not fill prescriptions after discharge about 2 weeks ago Resume home meds Acute on chronic kidney disease Consult Nephrology Hypertensive emergency he was started on Nitro drip resume home meds and hopefully taper of Nitro drip medical non-compliance He states he did not fill any of prescriptions after discharge from here 2 weeks ago. I counseled him on importance of taking meds and following with Physician seizure disorder resume keppra seizure precautions Full code status
[2019-08-24] MEDS: hydrALAZINE 25 MG TAB PO SCH ×3 (09:51→23:23)
[2019-08-24] MEDS: levETIRAcetam 500 MG TAB PO SCH ×2 (09:51→23:17)
[2019-08-24] MEDS: carvediloL 25 MG TAB PO SCH ×2 (09:51→23:23)
[2019-08-24] MEDS ORDERED: THIAMINE 100 MG TAB PO SCH (10:00)
[2019-08-24] MEDS ORDERED: NIFEdipine XL 60 MG TAB PO SCH (10:00)
[2019-08-24] MEDS ORDERED: FOLIC ACID 1 MG TAB PO SCH (10:00)
--- NOTE | 2019-08-24 11:00 | Consultation ---
History of Present Illness Consult date: 08/24/19 Consult reason: congestive heart failure History of present illness: Patient is a 58-year old male who presented to this hospital with shortness of breath and uncontrolled blood pressure. Currently he is on Bipap. Further evaluation with a chest x-ray reports interstitial edema. There is no reports of chest pain or palpitations. Initial labs shows a creatinine of 6.4 from 5.5 3 weeks ago. The patient has a history of chronic hypertension, chronic renal disease, seizure disorder, and dilated non-ischemic cardiomyopathy. His most recent ech ocardiogram done in this hospital 3 weeks ago reports a left ventricular ejection fraction 20-25%. A thallium myocardial perfusion study done a year ago was negative for ischemia. Patient is also known noncompliant with medical therapy, outpatient follow-up visits, and is currently not on dialysis. Medications and Allergies Allergies Allergy/AdvReac Type Severity Reaction Status Date / Time No Known Allergies Allergy Verified 04/09/19 13:12 Home Medications Medication Instructions Recorded Confirmed Last Taken Type Aspirin [Aspirin BABY CHEW TAB] 81 mg PO QDAY #30 tab.chew 11/22/17 08/24/19 04/10/19 Rx amLODIPine 10 mg PO QDAY #30 tablet 04/14/19 08/24/19 Unknown Rx carvediloL [Coreg] 25 mg PO BID #60 tablet 04/14/19 08/24/19 Unknown Rx hydrALAZINE [Apresoline TAB] 50 mg PO Q8H #90 tablet 04/14/19 08/24/19 Unknown Rx Benzonatate [Tessalon Perles] 100 mg PO Q8HR #10 capsule 08/10/19 08/24/19 Unknown Rx Folic Acid [Folvite] 1 mg PO QDAY #30 tablet 08/10/19 08/24/19 Unknown Rx Furosemide [Lasix TAB] 40 mg PO QDAY #30 tablet 08/10/19 08/24/19 Unknown Rx NIFEdipine XL [Procardia Xl] 60 mg PO QDAY #30 tablet 08/10/19 08/24/19 Unknown Rx Pravastatin Sodium [Pravastatin] 20 mg PO QHS #60 tablet 08/10/19 08/24/19 Unknown Rx Thiamine [Vitamin B-1] 100 mg PO QDAY #30 tablet 08/10/19 08/24/19 Unknown Rx levETIRAcetam [Keppra TAB] 750 mg PO BID #60 tablet 08/10/19 08/24/19 Unknown Rx Active Meds: Active Medications Aspirin (Baby Aspirin) 81 mg PO QDAY [facility] Carvedilol (Coreg) 25 mg PO BID [facility] Last Admin: 08/24/19 09:51 Dose: 25 mg Documented by: Folic Acid (Folvite) 1 mg PO QDAY [facility] Furosemide (Lasix) 40 mg PO QDAY [facility] Hydralazine HCl (Apresoline) 50 mg PO Q8HR [facility] Last Admin: 08/24/19 09:51 Dose: 50 mg Documented by: Nitroglycerin/Dextrose (Tridil Drip 50mg/250ml) 50 mg in 250 mls @ 3 mls/hr IV TITR [facility]; Protocol Last Titration: 08/24/19 09:55 Dose: 160 mcg/min, 48 mls/hr Documented by: Levetiracetam (Keppra) 750 mg PO BID [facility] Last Admin: 08/24/19 09:51 Dose: 750 mg Documented by: Nifedipine (Procardia Xl) 60 mg PO QDAY [facility] Pravastatin Sodium (Pravachol) 20 mg PO QHS [facility] Thiamine HCl (Vitamin B-1) 100 mg PO QDAY [facility] Physical Examination Vital Signs Temp Pulse Resp BP Pulse Ox 98.3 F 88 24 196/127 98 08/24/19 06:12 08/24/19 06:12 08/24/19 06:12 08/24/19 06:12 08/24/19 06:12 General appearance: other (on Bipap) HEENT: Positive: PERRL Neck: Positive: JVD/HJR Cardiac: Positive: Reg Rate and Rhythm Lungs: Positive: Decreased Breath Sounds Neuro: Positive: Grossly Intact Results 08/24/19 06:30 08/24/19 06:30 Cardiac Enzymes 08/24/19 Range/Units 06:30 AST 25 (5-40) units/L Coagulation 08/24/19 Range/Units 06:30 PT 13.8 (12.2-14.9) Sec. INR 1.07 (0.87-1.13) APTT 27.8 (24.2-36.6) Sec. Lipids 08/24/19 Range/Units 06:30 Triglycerides 65 (2-149) mg/dL Cholesterol 127 (50-199) mg/dL HDL Cholesterol 53 (40-59) mg/dL Cholesterol/HDL Ratio 2.39 % CBC 08/24/19 Range/Units 06:30 WBC 4.4 L (4.5-11.0) K/mm3 RBC 2.70 L (3.65-5.03) M/mm3 Hgb 9.0 L (11.8-15.2) gm/dl Hct 27.4 L (35.5-45.6) % Plt Count 230 (140-440) K/mm3 Comprehensive Metabolic Panel 08/24/19 Range/Units 06:30 Sodium 147 H (137-145) mmol/L Potassium 4.7 (3.6-5.0) mmol/L Chloride 115.5 H (98-107) mmol/L Carbon Dioxide 15 L (22-30) mmol/L BUN 71 H (9-20) mg/dL Creatinine 6.4 H (0.8-1.5) mg/dL Glucose 120 H (75-100) mg/dL Calcium 7.8 L (8.4-10.2) mg/dL AST 25 (5-40) units/L ALT 45 (7-56) units/L Alkaline Phosphatase 165 H (35-129) units/L Total Protein 6.5 (6.3-8.2) g/dL Albumin 3.7 L (3.9-5) g/dL Assessment and Plan Chronic systolic heart failure CKD Non-Ischemic cardiomyopathy EF 20-25% by echo 07/2019. no ischemia by MPI 12/2016. Anemia Htn Seizure disorder Hx of Tobacco and cocaine abuse Noncompliance with medical therapy and outpatient follow up. Recommend: Nephrology consultation for severe renal disease. Sodium/fluid restriction. Medical therapy for chronic systolic heart failure and nonischemic cardiomyopathy.
[2019-08-24] MEDS ORDERED: FOLIC ACID 1 MG TAB ONE (14:07)
[2019-08-24] MEDS ORDERED: ONDANSETRON 4 MG/2 ML INJ IV PRN (14:55)
[2019-08-24] MEDS ORDERED: ACETAMINOPHEN 325 MG TAB PO PRN (14:55)
[2019-08-24] MEDS ORDERED: ALBUTEROL 2.5 MG/3 ML NEBU IH PRN (14:55)
[2019-08-24] MEDS: FOLIC ACID 1 MG TAB PO SCH (15:14)
[2019-08-24] MEDS: NIFEdipine XL 60 MG TAB PO SCH (15:14)
[2019-08-24] MEDS ORDERED: hydrALAZINE 20 MG/1 ML INJ IV PRN (15:17)
[2019-08-24] MEDS: THIAMINE 100 MG TAB PO SCH (17:00)
[2019-08-24] MEDS ORDERED: THIAMINE 100 MG TAB ONE (18:04)
[2019-08-24] MEDS ORDERED: NON-FORMULARY EACH (Pravastatin Sodium [Pravastatin] 20 MG) PO SCH (22:00)
[2019-08-24] MEDS: PRAVASTATIN 20 MG TAB PO SCH (23:17)
[2019-08-24] MEDS: HEPARIN 5,000 UNIT/1 ML VIAL SUB-Q SCH (23:19)
[2019-08-24] MEDS: MORPHINE 2 MG/1 ML INJ IV PRN (23:37)
[2019-08-25 05:52] LABS: Basophils % (Auto) 0.4 % (0.0-1.8); Eosinophils % (Auto) 0.1 % (0.0-4.3); Hematocrit 24.2 % (35.5-45.6); Lymphocytes # (Auto) 0.8 K/mm3 (1.2-5.4); Lymphocytes % (Auto) 13.9 % (13.4-35.0); Mean Corpuscular HGB Conc 33 % (32-34); Mean Corpuscular Volume 100 fl (84-94); Monocytes # (Auto) 0.4 K/mm3 (0.0-0.8); Monocytes % (Auto) 6.9 % (0.0-7.3); Platelet Count 212 K/mm3 (140-440); Red Blood Count 2.41 M/mm3 (3.65-5.03)
[2019-08-25 06:12] LABS: Calcium 8.1 mg/dL (8.4-10.2)
[2019-08-25] MEDS: hydrALAZINE 25 MG TAB PO SCH ×3 (06:35→22:00)
[2019-08-25] MEDS: MORPHINE 2 MG/1 ML INJ IV PRN (07:30)
[2019-08-25] MEDS: FOLIC ACID 1 MG TAB PO SCH (09:17)
[2019-08-25] MEDS: levETIRAcetam 500 MG TAB PO SCH ×2 (09:17→22:00)
[2019-08-25] MEDS: HEPARIN 5,000 UNIT/1 ML VIAL SUB-Q SCH ×2 (09:18→22:00)
[2019-08-25] MEDS: carvediloL 25 MG TAB PO SCH ×2 (09:18→22:00)
[2019-08-25] MEDS: NIFEdipine XL 60 MG TAB PO SCH (09:18)
[2019-08-25] MEDS: ASPIRIN 81 MG TAB CHEW PO SCH (09:18)
[2019-08-25] MEDS: FUROSEMIDE 40 MG TAB PO SCH (09:18)
[2019-08-25] MEDS: THIAMINE 100 MG TAB PO SCH (09:23)
--- NOTE | 2019-08-25 11:24 | Progress Note ---
<LLOYD TRACY - Last Filed: 08/25/19 11:22> Assessment and Plan Chronic systolic heart failure Chronic renal failure Acute respiratory failure Non-Ischemic cardiomyopathy EF 20-25% by echo 07/2019. no ischemia by MPI 12/2016. Anemia Htn Seizure disorder Hx of Tobacco and cocaine abuse Noncompliance with medical therapy and outpatient follow up. Recommend: Nephrology consultation for severe renal disease. Sodium/fluid restriction. Continue medical therapy for chronic systolic heart failure and nonischemic cardiomyopathy. Subjective Date of service: 08/25/19 Interval history: Patient is resting in bed and appears comfortable. He reports his breathing is b juanito. Objective Vital Signs Temp Pulse Resp BP BP Pulse Ox 08/25/19 09:48 71 08/25/19 08:20 98.0 F 85 18 130/74 99 08/25/19 08:17 97.7 F 71 18 152/93 94 08/25/19 06:35 144/97 08/25/19 04:44 19 94 08/25/19 04:06 98.2 F 18 144/97 08/25/19 02:51 108/63 87 08/25/19 02:41 108/63 88 08/25/19 02:30 108/63 85 08/25/19 02:21 108/58 85 08/25/19 02:11 108/58 85 08/25/19 02:01 108/58 89 08/25/19 01:51 136/74 86 08/25/19 01:41 136/74 86 08/25/19 01:30 136/74 86 08/25/19 01:21 138/87 86 08/25/19 01:11 138/87 86 08/25/19 01:01 138/87 88 08/25/19 00:51 140/78 88 08/25/19 00:41 140/78 89 08/25/19 00:35 97.8 F 77 18 156/93 100 08/25/19 00:31 140/78 88 08/25/19 00:10 153/97 89 08/25/19 00:01 153/97 90 08/24/19 23:51 153/97 89 08/24/19 23:40 153/97 93 08/24/19 23:31 127/94 92 08/24/19 23:23 80 156/93 08/24/19 23:21 153/97 93 08/24/19 23:13 153/97 90 08/24/19 21:31 127/94 08/24/19 21:28 145/86 96 08/24/19 21:27 145/86 95 08/24/19 21:25 145/86 95 08/24/19 21:23 145/86 95 08/24/19 21:21 145/86 95 08/24/19 21:20 145/86 95 08/24/19 21:19 145/86 95 08/24/19 21:17 151/84 96 08/24/19 21:15 151/84 97 08/24/19 21:13 141/90 97 08/24/19 21:11 141/90 95 08/24/19 21:09 147/86 95 08/24/19 21:07 91 H 147/86 95 08/24/19 21:06 147/86 95 08/24/19 21:05 147/86 96 08/24/19 21:03 146/84 95 08/24/19 21:01 146/84 96 08/24/19 20:59 148/82 97 08/24/19 20:57 148/82 96 08/24/19 20:55 148/82 95 08/24/19 20:53 140/84 96 08/24/19 20:51 140/84 96 08/24/19 20:50 140/84 96 08/24/19 20:49 144/85 96 08/24/19 20:47 144/85 95 08/24/19 20:45 144/85 96 08/24/19 20:43 145/85 95 08/24/19 20:41 145/85 95 08/24/19 20:40 145/85 96 08/24/19 20:39 145/85 95 08/24/19 20:37 144/83 95 08/24/19 20:35 144/83 94 08/24/19 20:33 147/85 96 08/24/19 20:31 147/85 96 08/24/19 20:30 147/85 96 08/24/19 20:29 147/85 96 08/24/19 20:27 155/95 90 08/24/19 20:25 155/95 95 08/24/19 20:23 156/97 97 08/24/19 20:21 156/97 95 08/24/19 20:19 140/80 94 08/24/19 20:17 140/80 94 08/24/19 20:15 140/80 89 08/24/19 20:13 145/82 89 08/24/19 20:11 145/82 88 08/24/19 20:10 145/82 90 08/24/19 20:09 145/82 88 08/24/19 20:07 141/81 90 08/24/19 20:05 141/81 90 08/24/19 20:03 140/84 91 08/24/19 20:01 140/84 89 08/24/19 20:00 140/84 90 08/24/19 19:59 146/86 91 08/24/19 19:57 146/86 91 08/24/19 19:55 146/86 91 08/24/19 19:53 148/85 91 08/24/19 19:51 148/85 92 08/24/19 19:50 148/85 93 08/24/19 19:49 148/85 95 08/24/19 19:47 145/84 94 08/24/19 19:46 145/84 96 08/24/19 19:45 145/84 94 08/24/19 19:43 154/92 92 08/24/19 19:41 154/92 95 08/24/19 19:39 147/85 95 08/24/19 19:37 147/85 95 08/24/19 19:35 147/85 94 08/24/19 19:33 139/82 95 08/24/19 19:31 130/107 95 08/24/19 19:29 133/110 93 08/24/19 19:27 133/110 93 08/24/19 19:25 133/110 94 08/24/19 19:23 139/82 95 08/24/19 19:21 139/82 91 08/24/19 19:20 139/82 92 08/24/19 19:19 142/78 91 08/24/19 19:17 142/78 92 08/24/19 19:15 142/78 91 08/24/19 19:13 136/75 91 08/24/19 19:11 136/75 91 08/24/19 19:10 136/75 92 11/26/19 19:09 139/78 92 08/24/19 19:07 139/78 92 08/24/19 19:05 139/78 92 08/24/19 19:03 129/76 92 08/24/19 19:02 160/98 91 08/24/19 19:01 129/76 91 08/24/19 19:00 129/76 94 08/24/19 18:59 135/74 93 08/24/19 18:57 135/74 93 08/24/19 18:55 135/74 93 08/24/19 18:53 146/75 93 08/24/19 18:51 146/75 94 08/24/19 18:50 146/75 95 08/24/19 18:49 128/74 96 08/24/19 18:47 128/74 96 08/24/19 18:45 128/74 91 08/24/19 18:43 138/76 96 08/24/19 18:41 138/76 92 08/24/19 18:40 138/76 92 08/24/19 18:39 138/76 93 08/24/19 18:37 139/75 94 08/24/19 18:35 139/75 95 08/24/19 18:33 148/80 95 08/24/19 18:31 148/80 95 08/24/19 18:30 148/80 96 08/24/19 18:29 159/96 96 08/24/19 18:27 20 159/96 97 08/24/19 18:25 80 13 159/96 97 08/24/19 18:23 76 15 159/95 96 08/24/19 18:21 80 15 159/95 97 08/24/19 18:20 80 23 159/95 97 08/24/19 18:19 92 H 22 154/104 96 08/24/19 18:17 80 30 H 154/104 96 08/24/19 18:15 82 24 154/104 96 08/24/19 18:13 81 21 163/97 95 08/24/19 17:30 108 H 25 H 160/98 08/24/19 17:23 122 H 25 H 160/104 08/24/19 17:21 111 H 28 H 160/104 08/24/19 17:20 110 H 28 H 160/104 08/24/19 17:19 98 H 29 H 160/104 08/24/19 17:17 78 25 H 162/95 08/24/19 17:15 144 H 23 162/95 08/24/19 17:13 84 25 H 157/95 08/24/19 17:11 75 17 157/95 08/24/19 17:10 70 23 157/95 08/24/19 17:09 78 26 H 157/95 08/24/19 17:07 93 H 23 160/94 08/24/19 17:05 98 H 28 H 160/94 08/24/19 17:03 80 27 H 160/95 08/24/19 17:01 133 H 27 H 160/95 08/24/19 17:00 26 H 160/95 08/24/19 16:59 80 19 160/95 08/24/19 16:57 90 45 H 167/101 08/24/19 16:55 90 20 167/101 08/24/19 16:53 26 H 159/98 08/24/19 16:51 93 H 20 159/98 08/24/19 16:50 143 H 17 159/98 08/24/19 16:49 78 20 168/103 08/24/19 16:47 77 23 168/103 08/24/19 16:45 101 H 16 08/24/19 16:44 79 21 163/106 08/24/19 16:42 30 H 163/106 08/24/19 16:40 78 33 H 173/107 08/24/19 16:38 89 25 H 173/107 08/24/19 16:37 84 27 H 173/107 08/24/19 16:36 84 21 157/109 08/24/19 16:34 85 26 H 157/109 96 08/24/19 16:32 83 23 157/109 100 08/24/19 16:31 80 21 157/109 100 08/24/19 16:30 81 19 166/94 99 08/24/19 16:28 100 H 31 H 166/94 08/24/19 16:26 85 28 H 160/100 98 08/24/19 16:24 85 20 160/100 98 08/24/19 16:22 100 H 27 H 157/103 98 08/24/19 16:20 89 17 157/103 98 08/24/19 16:18 79 12 157/103 97 08/24/19 16:16 73 15 157/103 98 08/24/19 16:15 71 16 157/103 98 08/24/19 16:14 74 15 161/102 97 08/24/19 16:12 71 15 161/102 97 08/24/19 16:10 82 10 L 171/109 08/24/19 16:08 73 18 171/109 97 08/24/19 16:06 71 14 171/109 97 08/24/19 16:01 99 H 24 162/109 98 08/24/19 15:31 84 22 154/101 99 08/24/19 15:00 97.6 F 18 150/94 99 08/24/19 14:30 64 14 140/89 97 08/24/19 14:00 64 16 127/75 08/24/19 13:30 61 13 129/86 08/24/19 13:00 69 14 139/93 08/24/19 12:30 63 17 138/82 08/24/19 12:26 83 16 146/96 100 08/24/19 12:01 64 13 142/98 08/24/19 11:30 52 L 16 135/86 100 - Physical Examination General: No Apparent Distress HEENT: Positive: PERRL Neck: Positive: JVD/HJR Cardiac: Positive: Reg Rate and Rhythm Lungs: Positive: Decreased Breath Sounds Neuro: Positive: Grossly Intact - Labs and Meds CBC 08/25/19 Range/Units 04:35 WBC 5.7 (4.5-11.0) K/mm3 RBC 2.41 L (3.65-5.03) M/mm3 Hgb 8.0 L (11.8-15.2) gm/dl Hct 24.2 L (35.5-45.6) % Plt Count 212 (140-440) K/mm3 Lymph # 0.8 L (1.2-5.4) K/mm3 [place] # 0.4 (0.0-0.8) K/mm3 Eos # 0.0 (0.0-0.4) K/mm3 Baso # 0.0 (0.0-0.1) K/mm3 Comprehensive Metabolic Panel 08/25/19 Range/Units 04:35 Sodium 143 (137-145) mmol/L Potassium 4.8 (3.6-5.0) mmol/L Chloride 114.9 H (98-107) mmol/L Carbon Dioxide 15 L (22-30) mmol/L BUN 71 H (9-20) mg/dL Creatinine 6.6 H (0.8-1.5) mg/dL Glucose 119 H (75-100) mg/dL Calcium 8.1 L (8.4-10.2) mg/dL <RICHIE SINGH - Last Filed: 08/25/19 12:12> Assessment and Plan I've seen and evaluated the patient and agree with the assessment and plan. Patient is presenting with nonischemic cardiomyopathy with ejection fraction 20- 25%. Patient history is notable for multi drug abuse as well as noncompliance with medical therapy. When patient goes home on discharge he frequently does not take and does not obtain his medications appropriately. At this time we'll restart his medical therapy. Continue sodium and fluid restriction. Continue gentle diuresis as tolerated. Of note the patient's creatinine is continually showing worsening. Nephrology is consult. Objective Vital Signs Temp Pulse Resp BP BP Pulse Ox 08/25/19 09:48 71 08/25/19 08:20 98.0 F 85 18 130/74 99 08/25/19 08:17 97.7 F 71 18 152/93 94 08/25/19 06:35 144/97 08/25/19 04:44 19 94 08/25/19 04:06 98.2 F 18 144/97 08/25/19 02:51 108/63 87 08/25/19 02:41 108/63 88 08/25/19 02:30 108/63 85 08/25/19 02:21 108/58 85 08/25/19 02:11 108/58 85 08/25/19 02:01 108/58 89 08/25/19 01:51 136/74 86 08/25/19 01:41 136/74 86 08/25/19 01:30 136/74 86 08/25/19 01:21 138/87 86 08/25/19 01:11 138/87 86 08/25/19 01:01 138/87 88 08/25/19 00:51 140/78 88 08/25/19 00:41 140/78 89 08/25/19 00:35 97.8 F 77 18 156/93 100 08/25/19 00:31 140/78 88 08/25/19 00:10 153/97 89 08/25/19 00:01 153/97 90 08/24/19 23:51 153/97 89 08/24/19 23:40 153/97 93 08/24/19 23:31 127/94 92 08/24/19 23:23 80 156/93 08/24/19 23:21 153/97 93 08/24/19 23:13 153/97 90 08/24/19 21:31 127/94 08/24/19 21:28 145/86 96 08/24/19 21:27 145/86 95 08/24/19 21:25 145/86 95 08/24/19 21:23 145/86 95 08/24/19 21:21 145/86 95 08/24/19 21:20 145/86 95 08/24/19 21:19 145/86 95 08/24/19 21:17 151/84 96 08/24/19 21:15 151/84 97 08/24/19 21:13 141/90 97 08/24/19 21:11 141/90 95 08/24/19 21:09 147/86 95 08/24/19 21:07 91 H 147/86 95 08/24/19 21:06 147/86 95 08/24/19 21:05 147/86 96 08/24/19 21:03 146/84 95 08/24/19 21:01 146/84 96 08/24/19 20:59 148/82 97 08/24/19 20:57 148/82 96 08/24/19 20:55 148/82 95 08/24/19 20:53 140/84 96 08/24/19 20:51 140/84 96 08/24/19 20:50 140/84 96 08/24/19 20:49 144/85 96 08/24/19 20:47 144/85 95 08/24/19 20:45 144/85 96 08/24/19 20:43 145/85 95 08/24/19 20:41 145/85 95 08/24/19 20:40 145/85 96 08/24/19 20:39 145/85 95 11/26/19 20:37 144/83 95 08/24/19 20:35 144/83 94 08/24/19 20:33 147/85 96 08/24/19 20:31 147/85 96 08/24/19 20:30 147/85 96 08/24/19 20:29 147/85 96 08/24/19 20:27 155/95 90 08/24/19 20:25 155/95 95 08/24/19 20:23 156/97 97 08/24/19 20:21 156/97 95 08/24/19 20:19 140/80 94 08/24/19 20:17 140/80 94 08/24/19 20:15 140/80 89 08/24/19 20:13 145/82 89 08/24/19 20:11 145/82 88 08/24/19 20:10 145/82 90 08/24/19 20:09 145/82 88 08/24/19 20:07 141/81 90 08/24/19 20:05 141/81 90 08/24/19 20:03 140/84 91 08/24/19 20:01 140/84 89 08/24/19 20:00 140/84 90 08/24/19 19:59 146/86 91 08/24/19 19:57 146/86 91 08/24/19 19:55 146/86 91 08/24/19 19:53 148/85 91 08/24/19 19:51 148/85 92 08/24/19 19:50 148/85 93 08/24/19 19:49 148/85 95 08/24/19 19:47 145/84 94 08/24/19 19:46 145/84 96 08/24/19 19:45 145/84 94 08/24/19 19:43 154/92 92 08/24/19 19:41 154/92 95 08/24/19 19:39 147/85 95 08/24/19 19:37 147/85 95 08/24/19 19:35 147/85 94 08/24/19 19:33 139/82 95 08/24/19 19:31 130/107 95 08/24/19 19:29 133/110 93 08/24/19 19:27 133/110 93 08/24/19 19:25 133/110 94 08/24/19 19:23 139/82 95 08/24/19 19:21 139/82 91 08/24/19 19:20 139/82 92 08/24/19 19:19 142/78 91 08/24/19 19:17 142/78 92 08/24/19 19:15 142/78 91 08/24/19 19:13 136/75 91 08/24/19 19:11 136/75 91 08/24/19 19:10 136/75 92 08/24/19 19:09 139/78 92 08/24/19 19:07 139/78 92 08/24/19 19:05 139/78 92 08/24/19 19:03 129/76 92 08/24/19 19:02 160/98 91 08/24/19 19:01 129/76 91 08/24/19 19:00 129/76 94 08/24/19 18:59 135/74 93 08/24/19 18:57 135/74 93 08/24/19 18:55 135/74 93 08/24/19 18:53 146/75 93 08/24/19 18:51 146/75 94 08/24/19 18:50 146/75 95 08/24/19 18:49 128/74 96 08/24/19 18:47 128/74 96 08/24/19 18:45 128/74 91 08/24/19 18:43 138/76 96 08/24/19 18:41 138/76 92 08/24/19 18:40 138/76 92 08/24/19 18:39 138/76 93 08/24/19 18:37 139/75 94 08/24/19 18:35 139/75 95 08/24/19 18:33 148/80 95 08/24/19 18:31 148/80 95 08/24/19 18:30 148/80 96 08/24/19 18:29 159/96 96 08/24/19 18:27 20 159/96 97 08/24/19 18:25 80 13 159/96 97 08/24/19 18:23 76 15 159/95 96 08/24/19 18:21 80 15 159/95 97 08/24/19 18:20 80 23 159/95 97 08/24/19 18:19 92 H 22 154/104 96 08/24/19 18:17 80 30 H 154/104 96 08/24/19 18:15 82 24 154/104 96 08/24/19 18:13 81 21 163/97 95 08/24/19 17:30 108 H 25 H 160/98 08/24/19 17:23 122 H 25 H 160/104 08/24/19 17:21 111 H 28 H 160/104 08/24/19 17:20 110 H 28 H 160/104 08/24/19 17:19 98 H 29 H 160/104 08/24/19 17:17 78 25 H 162/95 08/24/19 17:15 144 H 23 162/95 08/24/19 17:13 84 25 H 157/95 08/24/19 17:11 75 17 157/95 08/24/19 17:10 70 23 157/95 08/24/19 17:09 78 26 H 157/95 08/24/19 17:07 93 H 23 160/94 08/24/19 17:05 98 H 28 H 160/94 08/24/19 17:03 80 27 H 160/95 08/24/19 17:01 133 H 27 H 160/95 08/24/19 17:00 26 H 160/95 08/24/19 16:59 80 19 160/95 08/24/19 16:57 90 45 H 167/101 08/24/19 16:55 90 20 167/101 08/24/19 16:53 26 H 159/98 08/24/19 16:51 93 H 20 159/98 08/24/19 16:50 143 H 17 159/98 08/24/19 16:49 78 20 168/103 08/24/19 16:47 77 23 168/103 08/24/19 16:45 101 H 16 08/24/19 16:44 79 21 163/106 08/24/19 16:42 30 H 163/106 08/24/19 16:40 78 33 H 173/107 08/24/19 16:38 89 25 H 173/107 08/24/19 16:37 84 27 H 173/107 08/24/19 16:36 84 21 157/109 08/24/19 16:34 85 26 H 157/109 96 08/24/19 16:32 83 23 157/109 100 08/24/19 16:31 80 21 157/109 100 08/24/19 16:30 81 19 166/94 99 08/24/19 16:28 100 H 31 H 166/94 08/24/19 16:26 85 28 H 160/100 98 08/24/19 16:24 85 20 160/100 98 08/24/19 16:22 100 H 27 H 157/103 98 08/24/19 16:20 89 17 157/103 98 08/24/19 16:18 79 12 157/103 97 08/24/19 16:16 73 15 157/103 98 08/24/19 16:15 71 16 157/103 98 08/24/19 16:14 74 15 161/102 97 08/24/19 16:12 71 15 161/102 97 08/24/19 16:10 82 10 L 171/109 08/24/19 16:08 73 18 171/109 97 08/24/19 16:06 71 14 171/109 97 08/24/19 16:01 99 H 24 162/109 98 08/24/19 15:31 84 22 154/101 99 08/24/19 15:00 97.6 F 18 150/94 99 08/24/19 14:30 64 14 140/89 97 08/24/19 14:00 64 16 127/75 08/24/19 13:30 61 13 129/86 08/24/19 13:00 69 14 139/93 08/24/19 12:30 63 17 138/82 08/24/19 12:26 83 16 146/96 100 - Labs and Meds CBC 08/25/19 Range/Units 04:35 WBC 5.7 (4.5-11.0) K/mm3 RBC 2.41 L (3.65-5.03) M/mm3 Hgb 8.0 L (11.8-15.2) gm/dl Hct 24.2 L (35.5-45.6) % Plt Count 212 (140-440) K/mm3 Lymph # 0.8 L (1.2-5.4) K/mm3 [place] # 0.4 (0.0-0.8) K/mm3 Eos # 0.0 (0.0-0.4) K/mm3 Baso # 0.0 (0.0-0.1) K/mm3 Comprehensive Metabolic Panel 08/25/19 Range/Units 04:35 Sodium 143 (137-145) mmol/L Potassium 4.8 (3.6-5.0) mmol/L Chloride 114.9 H (98-107) mmol/L Carbon Dioxide 15 L (22-30) mmol/L BUN 71 H (9-20) mg/dL Creatinine 6.6 H (0.8-1.5) mg/dL Glucose 119 H (75-100) mg/dL Calcium 8.1 L (8.4-10.2) mg/dL
[2019-08-25] MEDS ORDERED: PNEUMOCOCCAL 23 Valent 0.5 ML VIAL IM ONE (12:00)
[2019-08-25] MEDS ORDERED: FLU VACC QUAD 2019-20 (3 YR UP)/PF 60 MCG/0.5 ML SYRINGE IM ONE (12:00)
--- NOTE | 2019-08-25 13:47 | Progress Note ---
Assessment and Plan Assessment and plan: Acute respiratory failure due to CHF exacerbation Admitted to Tele Supplemental Oxygen off BIPAP Acute on chronic systolic CHF Lasix iv given in ED consulted Cardiology, following Patient states he has been non-compliant, did not fill prescriptions after discharge about 2 weeks ago Resume home meds Acute on chronic kidney disease Consult Nephrology Hypertensive emergency he was started on Nitro drip resume home meds and hopefully taper of Nitro drip medical non-compliance He states he did not fill any of prescriptions after discharge from here 2 weeks ago. I counseled him on importance of taking meds and following with Physician Seizure disorder resume keppra seizure precautions Full code status History Interval history: less shortness of breath Hospitalist Physical - Physical exam Narrative exam: Gen: Not in acute distress, lying in bed,BIPAP on HEENT: Normocephalic, atraumatic Neck: supple, no JVD Heart: S1 and S2 reg, no murmurs, rubs or gallop Lungs: Bilateral basal crackles, no wheezing, Abd: soft, non tender, non distended, normal BS, Ext: Bilateral edema of legs, no clubbing, no cyanosis Neuro: Awake, alert, oriented X 3, No focal neurological signs - Constitutional Vitals: Temp Pulse Resp BP Pulse Ox 98.0 F 71 18 130/74 99 08/25/19 08:20 08/25/19 09:48 08/25/19 08:20 08/25/19 08:20 08/25/19 08:20 General appearance: Present: other (on Bipap) Results - Labs CBC & Chem 7: 08/26/19 04:36 08/26/19 04:36 Labs: Laboratory Last Values WBC 5.7 K/mm3 (4.5-11.0) 08/25/19 04:35 RBC 2.41 M/mm3 (3.65-5.03) L 08/25/19 04:35 Hgb 8.0 gm/dl (11.8-15.2) L 08/25/19 04:35 Hct 24.2 % (35.5-45.6) L 08/25/19 04:35 MCV 100 fl (84-94) H 08/25/19 04:35 MCH 33 pg (28-32) H 08/25/19 04:35 MCHC 33 % (32-34) 08/25/19 04:35 RDW 17.0 % (13.2-15.2) H 08/25/19 04:35 Plt Count 212 K/mm3 (140-440) 08/25/19 04:35 Lymph % (Auto) 13.9 % (13.4-35.0) 08/25/19 04:35 [place] % (Auto) 6.9 % (0.0-7.3) 08/25/19 04:35 Eos % (Auto) 0.1 % (0.0-4.3) 08/25/19 04:35 Baso % (Auto) 0.4 % (0.0-1.8) 08/25/19 04:35 Lymph # 0.8 K/mm3 (1.2-5.4) L 08/25/19 04:35 [place] # 0.4 K/mm3 (0.0-0.8) 08/25/19 04:35 Eos # 0.0 K/mm3 (0.0-0.4) 08/25/19 04:35 Baso # 0.0 K/mm3 (0.0-0.1) 08/25/19 04:35 Seg Neutrophils % 78.7 % (40.0-70.0) H 08/25/19 04:35 Seg Neutrophils # 4.5 K/mm3 (1.8-7.7) 08/25/19 04:35 PT 13.8 Sec. (12.2-14.9) 08/24/19 06:30 INR 1.07 (0.87-1.13) 08/24/19 06:30 APTT 27.8 Sec. (24.2-36.6) 08/24/19 06:30 Sodium 143 mmol/L (137-145) 08/25/19 04:35 Potassium 4.8 mmol/L (3.6-5.0) 08/25/19 04:35 Chloride 114.9 mmol/L (98-107) H 08/25/19 04:35 Carbon Dioxide 15 mmol/L (22-30) L 08/25/19 04:35 Anion Gap 18 mmol/L 08/25/19 04:35 BUN 71 mg/dL (9-20) H 08/25/19 04:35 Creatinine 6.6 mg/dL (0.8-1.5) H 08/25/19 04:35 Estimated GFR 11 ml/min 08/25/19 04:35 BUN/Creatinine Ratio 11 % 08/25/19 04:35 Glucose 119 mg/dL (75-100) H 08/25/19 04:35 Calcium 8.1 mg/dL (8.4-10.2) L 08/25/19 04:35 Magnesium 1.50 mg/dL (1.7-2.3) L 08/24/19 06:30 Total Bilirubin < 0.20 mg/dL (0.1-1.2) 08/24/19 06:30 AST 25 units/L (5-40) 08/24/19 06:30 ALT 45 units/L (7-56) 08/24/19 06:30 Alkaline Phosphatase 165 units/L (35-129) H 08/24/19 06:30 Total Creatine Kinase 154 units/L (55-170) 08/24/19 06:30 Troponin T 0.031 ng/mL (0.00-0.029) H 08/24/19 06:30 Total Protein 6.5 g/dL (6.3-8.2) 08/24/19 06:30 Albumin 3.7 g/dL (3.9-5) L 08/24/19 06:30 Albumin/Globulin Ratio 1.3 % 08/24/19 06:30 Triglycerides 65 mg/dL (2-149) 08/24/19 06:30 Cholesterol 127 mg/dL (50-199) 08/24/19 06:30 LDL Cholesterol Direct 69 mg/dL (50-130) 08/24/19 06:30 HDL Cholesterol 53 mg/dL (40-59) 08/24/19 06:30 Cholesterol/HDL Ratio 2.39 % 08/24/19 06:30 Urine Color Yellow (Yellow) 08/24/19 Unknown Urine Turbidity Clear (Clear) 08/24/19 Unknown Urine pH 5.0 (5.0-7.0) 08/24/19 Unknown Ur Specific [place] 1.014 (1.003-1.030) 08/24/19 Unknown Urine Protein >2000 mg dl mg/dL (Negative) 08/24/19 Unknown Urine Glucose (UA) 50 mg/dL (Negative) 08/24/19 Unknown Urine Ketones Neg mg/dL (Negative) 08/24/19 Unknown Urine Blood Sm (Negative) 08/24/19 Unknown Urine Nitrite Neg (Negative) 08/24/19 Unknown Urine Bilirubin Neg (Negative) 08/24/19 Unknown Urine Urobilinogen < 2.0 mg/dL (<2.0) 08/24/19 Unknown Ur Leukocyte Esterase Neg (Negative) 08/24/19 Unknown Urine WBC (Auto) 2.0 /HPF (0.0-6.0) 08/24/19 Unknown Urine RBC (Auto) 2.0 /HPF (0.0-6.0) 08/24/19 Unknown Active Medications - Current Medications Current Medications: Generic Name Dose Route Start Last Admin Trade Name Freq PRN Reason Stop Dose Admin Acetaminophen 650 mg 08/24/19 14:55 Tylenol PO Q4H PRN Pain MILD(1-3)/Fever >100.5/TORIBIO Albuterol 2.5 mg 08/24/19 14:55 Proventil IH Q4HRT PRN Shortness Of Breath Aspirin 81 mg 08/25/19 10:00 08/25/19 09:18 Baby Aspirin PO 81 mg QDAY WILL Administration Carvedilol 25 mg 08/24/19 10:00 08/25/19 09:18 Coreg PO 25 mg BID WILL Administration Folic Acid 1 mg 08/24/19 13:00 08/25/19 09:17 Folvite PO 1 mg QDAY WILL Administration Furosemide 40 mg 08/25/19 10:00 08/25/19 09:18 Lasix PO 40 mg QDAY WILL Administration Heparin Sodium (Porcine) 5,000 unit 08/24/19 22:00 08/25/19 09:18 Heparin SUB-Q 5,000 unit Q12HR WILL Administration Hydralazine HCl 50 mg 08/24/19 09:00 08/25/19 12:59 Apresoline PO 50 mg Q8HR WILL Administration Hydralazine HCl 20 mg 08/24/19 15:17 Apresoline IV Q4HR PRN SBP>170 or DBP>110 Levetiracetam 750 mg 08/24/19 10:00 08/25/19 09:17 Keppra PO 750 mg BID WILL Administration Morphine Sulfate 2 mg 08/24/19 14:55 08/25/19 07:30 Morphine IV 2 mg Q4H PRN Administration Pain, Moderate (4-6) Nifedipine 60 mg 08/24/19 13:00 08/25/19 09:18 Procardia Xl PO 60 mg QDAY WILL Administration Ondansetron HCl 4 mg 08/24/19 14:55 Zofran IV Q8H PRN Nausea And Vomiting Pravastatin Sodium 20 mg 08/24/19 22:00 08/24/19 23:17 Pravachol PO 20 mg QHS WILL Administration Sodium Chloride 10 ml 08/24/19 22:00 08/25/19 09:19 Sodium Chloride Flush Syringe 10 Ml IV 10 ml BID WILL Administration Sodium Chloride 10 ml 08/24/19 14:55 Sodium Chloride Flush Syringe 10 Ml IV PRN PRN LINE FLUSH Thiamine HCl 100 mg 08/24/19 13:00 08/25/19 09:23 Vitamin B-1 PO Not Given QDAY WILL
[2019-08-25] MEDS: HYDROcodone/ACETAMINOPHEN 5-325 MG TAB PO PRN (15:27)
--- NOTE | 2019-08-25 16:33 | Consultation ---
History of Present Illness - Reason for Consult Consult date: 08/25/19 chronic renal failure - History of Present Illness This is a 58 year old male who presents to the hospital for a chief complaint of shortness of breath and swelling to legs. Patient was recently discharge from this hospital on 08/10/19. Patient did not fill his Lasix prescription upon discharge. Patient found to be with Pulmonary Edema on CXR and placed on IV Lasix. Renal labs showed serum creatinine of 6.4. Patient has history of CKD, CHF, Hypertension and Seizure. Past History Past Medical History: heart failure (Chronic systolic CHF), hypertension, renal failure (CKD), seizures, other (Medical noncompliance) Past Surgical History: No surgical history Social history: , smoking, full code Family history: hypertension Medications and Allergies Allergies Allergy/AdvReac Type Severity Reaction Status Date / Time No Known Allergies Allergy Verified 04/09/19 13:12 Home Medications Medication Instructions Recorded Confirmed Last Taken Type Aspirin [Aspirin BABY CHEW TAB] 81 mg PO QDAY #30 tab.chew 11/22/17 08/24/19 04/10/19 Rx amLODIPine 10 mg PO QDAY #30 tablet 04/14/19 08/24/19 Unknown Rx carvediloL [Coreg] 25 mg PO BID #60 tablet 04/14/19 08/24/19 Unknown Rx hydrALAZINE [Apresoline TAB] 50 mg PO Q8H #90 tablet 04/14/19 08/24/19 Unknown Rx Benzonatate [Tessalon Perles] 100 mg PO Q8HR #10 capsule 08/10/19 08/24/19 Unknown Rx Folic Acid [Folvite] 1 mg PO QDAY #30 tablet 08/10/19 08/24/19 Unknown Rx Furosemide [Lasix TAB] 40 mg PO QDAY #30 tablet 08/10/19 08/24/19 Unknown Rx NIFEdipine XL [Procardia Xl] 60 mg PO QDAY #30 tablet 08/10/19 08/24/19 Unknown Rx Pravastatin Sodium [Pravastatin] 20 mg PO QHS #60 tablet 08/10/19 08/24/19 Unknown Rx Thiamine [Vitamin B-1] 100 mg PO QDAY #30 tablet 08/10/19 08/24/19 Unknown Rx levETIRAcetam [Keppra TAB] 750 mg PO BID #60 tablet 08/10/19 08/24/19 Unknown Rx Active Meds: Active Medications Acetaminophen (Tylenol) 650 mg PO Q4H PRN PRN Reason: Pain MILD(1-3)/Fever >100.5/TORIBIO Acetaminophen/Hydrocodone Bitart ([place] 5/325) 1 each PO Q6H PRN PRN Reason: Pain, Moderate (4-6) Last Admin: 08/25/19 15:27 Dose: 1 each Documented by: Albuterol (Proventil) 2.5 mg IH Q4HRT PRN PRN Reason: Shortness Of Breath Aspirin (Baby Aspirin) 81 mg PO QDAY [facility] Last Admin: 08/25/19 09:18 Dose: 81 mg Documented by: Carvedilol (Coreg) 25 mg PO BID [facility] Last Admin: 08/25/19 09:18 Dose: 25 mg Documented by: Folic Acid (Folvite) 1 mg PO QDAY [facility] Last Admin: 08/25/19 09:17 Dose: 1 mg Documented by: Furosemide (Lasix) 40 mg PO QDAY [facility] Last Admin: 08/25/19 09:18 Dose: 40 mg Documented by: Heparin Sodium (Porcine) (Heparin) 5,000 unit SUB-Q Q12HR [facility] Last Admin: 08/25/19 09:18 Dose: 5,000 unit Documented by: Hydralazine HCl (Apresoline) 50 mg PO Q8HR [facility] Last Admin: 08/25/19 12:59 Dose: 50 mg Documented by: Hydralazine HCl (Apresoline) 20 mg IV Q4HR PRN PRN Reason: SBP>170 or DBP>110 Levetiracetam (Keppra) 750 mg PO BID [facility] Last Admin: 08/25/19 09:17 Dose: 750 mg Documented by: Morphine Sulfate (Morphine) 2 mg IV Q4H PRN PRN Reason: Pain, Moderate (4-6) Last Admin: 08/25/19 07:30 Dose: 2 mg Documented by: Nifedipine (Procardia Xl) 60 mg PO QDAY [facility] Last Admin: 08/25/19 09:18 Dose: 60 mg Documented by: Ondansetron HCl (Zofran) 4 mg IV Q8H PRN PRN Reason: Nausea And Vomiting Last Admin: 08/25/19 15:27 Dose: 4 mg Documented by: Pravastatin Sodium (Pravachol) 20 mg PO QHS [facility] Last Admin: 08/24/19 23:17 Dose: 20 mg Documented by: Sodium Chloride (Sodium Chloride Flush Syringe 10 Ml) 10 ml IV BID [facility] Last Admin: 08/25/19 09:19 Dose: 10 ml Documented by: Sodium Chloride (Sodium Chloride Flush Syringe 10 Ml) 10 ml IV PRN PRN PRN Reason: LINE FLUSH Thiamine HCl (Vitamin B-1) 100 mg PO QDAY [facility] Last Admin: 08/25/19 09:23 Dose: Not Given Documented by: Review of Systems Constitutional: fatigue Ears, nose, mouth and throat: no ear pain, no tinnitis, no decreased hearing, no nose pain, no nasal congestion Cardiovascular: shortness of breath, dyspnea on exertion, high blood pressure Respiratory: dyspnea on exertion, no cough with sputum, no excessive sputum, no hemoptysis, no shortness of breath Gastrointestinal: no abdominal pain, no nausea, no vomiting, no diarrhea, no co nstipation, no change in bowel habits Genitourinary Male: no hematuria, no flank pain, no discharge, no urinary frequency, no urinary hesitancy Rectal: no pain, no incontinence, no bleeding, no itching Musculoskeletal: no neck stiffness, no neck pain, no shooting arm pain, no arm numbness/tingling, no low back pain, no shooting leg pain Integumentary: no rash, no pruritis, no redness, no sores, no wounds, no jaundice Neurological: weakness, seizures, no head injury, no transient paralysis, no paralysis, no parathesias, no numbness, no tingling Psychiatric: no memory loss, no change in sleep habits, no insomnia, no hypersomnia Endocrine: no cold intolerance, no heat intolerance, no polyphagia, no excessive thirst, no polydipsia Hematologic/Lymphatic: no easy bruising, no easy bleeding, no lymphadenopathy, no lymphedema Exam - Vital Signs Vital signs: Vital Signs Temp Pulse Resp BP Pulse Ox 98.3 F 88 24 196/127 98 08/24/19 06:12 08/24/19 06:12 08/24/19 06:12 08/24/19 06:12 08/24/19 06:12 - General Appearance General appearance: appears stated age, fatigue EENT: ATNC, PERRL, hearing intact, vision intact Neck: Present: neck supple, trachea midline Respiratory: Decreased Breath Sounds Heart: regular, S1S2 Gastrointestinal: Present: normoactive bowel sounds Integumentary: warm and dry Neurologic: alert and oriented x3 Musculoskeletal: Present: other (mild edema) Results - Lab Results 08/25/19 04:35 08/25/19 04:35 Most recent lab results Calcium 8.1 mg/dL (8.4-10.2) L 08/25/19 04:35 Magnesium 1.50 mg/dL (1.7-2.3) L 08/24/19 06:30 Assessment and Plan Assessment: Acute on chronic systolic heart failure Severe renal failure, likely progressing CKD, cardiorenal syndrome Pulmonary Edema Hypertension Metabolic Acidosis Prescription Non-compliance Plan: - Renal labs reviewed. Serum creatinine 6.6 noted today, has good UOP of 1050 ml . - No acute indication for [employer] at this time, but will likely need it in near future - Continue on Lasix 40 mg po daily, adjust as needed - Start Sodium Bicarbonate 650 mg po TID - Obtain urine lytes - Obtain renal ultrasound - Renally dose meds - Strict I&O monitoring - Obtain daily weights - Continue to monitor
[2019-08-25] MEDS: SODIUM BICARBONATE 650 MG TAB PO SCH (20:00)
[2019-08-25] MEDS: PRAVASTATIN 20 MG TAB PO SCH (22:00)
[2019-08-25 23:16] LABS: Creatinine,Urine 65.7 mg/dL (0.1-20.0); Protein/Creatinine Ratio,Urine 1.31
[2019-08-26 05:51] LABS: Basophils % (Auto) 0.7 % (0.0-1.8); Eosinophils # (Auto) 0.1 K/mm3 (0.0-0.4); Eosinophils % (Auto) 1.8 % (0.0-4.3); Hematocrit 23.5 % (35.5-45.6); Hemoglobin 7.8 gm/dl (11.8-15.2); Lymphocytes # (Auto) 0.3 K/mm3 (1.2-5.4); Lymphocytes % (Auto) 7.4 % (13.4-35.0); Mean Corpuscular HGB Conc 33 % (32-34); Mean Corpuscular Volume 100 fl (84-94); Monocytes # (Auto) 0.2 K/mm3 (0.0-0.8); Monocytes % (Auto) 5.3 % (0.0-7.3); Platelet Count 223 K/mm3 (140-440); Red Blood Count 2.35 M/mm3 (3.65-5.03); Red Cell Distribution Width 16.6 % (13.2-15.2)
[2019-08-26] MEDS: hydrALAZINE 25 MG TAB PO SCH ×3 (06:22→22:12)
[2019-08-26] MEDS: SODIUM BICARBONATE 650 MG TAB PO SCH ×3 (08:06→22:10)
--- NOTE | 2019-08-26 08:22 | Progress Note ---
Assessment and Plan Assessment: Acute on chronic systolic heart failure ESRD, not on HD Pulmonary Edema Hypertension Metabolic Acidosis Prescription Non-compliance Plan: -cont to have severe renal failure, dialysis risk and benefit discussed with patient, all questions answered, agreeable to initiate HD, discussed with vascular, permcath to be placed tomorrow - Continue on Lasix 40 mg po daily, adjust as needed - cont Sodium Bicarbonate 650 mg po TID - Renally dose meds - Strict I&O monitoring - Obtain daily weights - Continue to monitor Zach paulino MD [phone] Subjective Date of service: 08/26/19 Principal diagnosis: ESRD Interval history: cont to have SOB Objective - Vital Signs Vital signs: Vital Signs - 12hr 08/25/19 08/26/19 23:21 03:39 Temperature 98.1 F 98.4 F Pulse Rate 75 75 Respiratory 18 18 Rate Blood Pressure 146/99 155/102 O2 Sat by Pulse 97 95 Oximetry - General Appearance General appearance: well-developed, well-nourished EENT: ATNC, PERRL, mucous membranes moist Neck: no JVD, no carotid bruit Respiratory: Present: Decreased Breath Sounds Cardiology: regular, S1S2 Gastrointestinal: normoactive bowel sounds Integumentary: no rash, warm and dry Neurologic: no focal deficit, no asterixis, alert and oriented x3 Musculoskeletal: other (no edema in BLE) Psychiatric: mood/affect appropriate, cooperative - Lab 08/26/19 04:36 08/26/19 04:36 Most recent lab results Calcium 8.0 mg/dL (8.4-10.2) L 08/26/19 04:36 Phosphorus 5.00 mg/dL (2.5-4.5) H 08/26/19 04:36 Magnesium 1.50 mg/dL (1.7-2.3) L 08/24/19 06:30 Urine Creatinine 65.7 mg/dL (0.1-20.0) H 08/25/19 22:10 Urine Sodium 81 mmol/L 08/25/19 22:10 Urine Total Protein 86 mg/dL (5-11.8) H 08/25/19 22:10 Medications & Allergies - Medications Allergies/Adverse Reactions: Allergies No Known Allergies Allergy (Verified 04/09/19 13:12) Home Medications: Home Medications Medication Instructions Recorded Confirmed Last Taken Type Aspirin [Aspirin BABY CHEW TAB] 81 mg PO QDAY #30 tab.chew 11/22/17 08/24/19 04/10/19 Rx amLODIPine 10 mg PO QDAY #30 tablet 04/14/19 08/24/19 Unknown Rx carvediloL [Coreg] 25 mg PO BID #60 tablet 04/14/19 08/24/19 Unknown Rx hydrALAZINE [Apresoline TAB] 50 mg PO Q8H #90 tablet 04/14/19 08/24/19 Unknown Rx Benzonatate [Tessalon Perles] 100 mg PO Q8HR #10 capsule 08/10/19 08/24/19 Unknown Rx Folic Acid [Folvite] 1 mg PO QDAY #30 tablet 08/10/19 08/24/19 Unknown Rx Furosemide [Lasix TAB] 40 mg PO QDAY #30 tablet 08/10/19 08/24/19 Unknown Rx NIFEdipine XL [Procardia Xl] 60 mg PO QDAY #30 tablet 08/10/19 08/24/19 Unknown Rx Pravastatin Sodium [Pravastatin] 20 mg PO QHS #60 tablet 08/10/19 08/24/19 Unknown Rx Thiamine [Vitamin B-1] 100 mg PO QDAY #30 tablet 08/10/19 08/24/19 Unknown Rx levETIRAcetam [Keppra TAB] 750 mg PO BID #60 tablet 08/10/19 08/24/19 Unknown Rx Active Medications: Generic Name Dose Route Start Last Admin Trade Name Freq PRN Reason Stop Dose Admin Acetaminophen 650 mg 08/24/19 14:55 Tylenol PO Q4H PRN Pain MILD(1-3)/Fever >100.5/TORIBIO Acetaminophen/Hydrocodone Bitart 1 each 08/25/19 15:01 08/25/19 15:27 [place] 5/325 PO 1 each Q6H PRN Administration Pain, Moderate (4-6) Albuterol 2.5 mg 08/24/19 14:55 Proventil IH Q4HRT PRN Shortness Of Breath Aspirin 81 mg 08/25/19 10:00 08/25/19 09:18 Baby Aspirin PO 81 mg QDAY WILL Administration Carvedilol 25 mg 08/24/19 10:00 08/25/19 22:00 Coreg PO Not Given BID WILL Folic Acid 1 mg 08/24/19 13:00 08/25/19 09:17 Folvite PO 1 mg QDAY WILL Administration Furosemide 40 mg 08/25/19 10:00 08/25/19 09:18 Lasix PO 40 mg QDAY WILL Administration Heparin Sodium (Porcine) 5,000 unit 08/24/19 22:00 08/25/19 22:00 Heparin SUB-Q Not Given Q12HR [facility] Hydralazine HCl 50 mg 08/24/19 09:00 08/26/19 06:22 Apresoline PO 50 mg Q8HR WILL Administration Hydralazine HCl 20 mg 08/24/19 15:17 Apresoline IV Q4HR PRN SBP>170 or DBP>110 Levetiracetam 750 mg 08/24/19 10:00 08/25/19 22:00 Keppra PO Not Given BID [facility] Morphine Sulfate 2 mg 08/24/19 14:55 08/25/19 07:30 Morphine IV 2 mg Q4H PRN Administration Pain, Moderate (4-6) Nifedipine 60 mg 08/24/19 13:00 08/25/19 09:18 Procardia Xl PO 60 mg QDAY [facility] Administration Ondansetron HCl 4 mg 08/24/19 14:55 08/25/19 15:27 Zofran IV 4 mg Q8H PRN Administration Nausea And Vomiting Pravastatin Sodium 20 mg 08/24/19 22:00 08/25/19 22:00 Pravachol PO Not Given QHS [facility] Sodium Bicarbonate 650 mg 08/25/19 20:00 08/26/19 08:06 Sodium Bicarbonate PO Not Given TID [facility] Sodium Chloride 10 ml 08/24/19 22:00 08/26/19 06:22 Sodium Chloride Flush Syringe 10 Ml IV 10 ml BID WILL Administration Sodium Chloride 10 ml 08/24/19 14:55 Sodium Chloride Flush Syringe 10 Ml IV PRN PRN LINE FLUSH Thiamine HCl 100 mg 08/24/19 13:00 08/25/19 09:23 Vitamin B-1 PO Not Given QDAY [facility]
[2019-08-26] MEDS: levETIRAcetam 500 MG TAB PO SCH ×2 (09:34→22:08)
[2019-08-26] MEDS: carvediloL 25 MG TAB PO SCH ×2 (09:34→22:09)
[2019-08-26] MEDS: NIFEdipine XL 60 MG TAB PO SCH (09:34)
--- NOTE | 2019-08-26 10:11 | Consultation ---
History of Present Illness - Reason for Consult Consult date: 08/26/19 chronic renal disease - History of Present Illness Patient with a history of chronic renal disease which is worsened since his last admission. Patient initially presented with a volume overload with anasarca and pulmonary edema. He underwent diuresis with some improvement in his pulmonary symptoms. Patient's creatinine is elevated and continues to remain elevated compared to his prior visit. Patient has not yet initiated hemodialysis. Past History Past Medical History: ESRD, heart failure (Chronic systolic CHF), hypertension, renal failure (CKD), seizures, other (Medical noncompliance) Past Surgical History: No surgical history Social history: , smoking, full code Family history: hypertension Medications and Allergies Allergies Allergy/AdvReac Type Severity Reaction Status Date / Time No Known Allergies Allergy Verified 04/09/19 13:12 Home Medications Medication Instructions Recorded Confirmed Last Taken Type RX: Aspirin [Aspirin BABY CHEW TAB] 81 mg PO QDAY #30 tab.chew 11/22/17 08/24/19 04/10/19 Rx RX: amLODIPine 10 mg PO QDAY #30 tablet 04/14/19 08/24/19 Unknown Rx RX: carvediloL [Coreg] 25 mg PO BID #60 tablet 04/14/19 08/24/19 Unknown Rx RX: hydrALAZINE [Apresoline TAB] 50 mg PO Q8H #90 tablet 04/14/19 08/24/19 Unknown Rx RX: Benzonatate [Tessalon Perles] 100 mg PO Q8HR #10 capsule 08/10/19 08/24/19 Unknown Rx RX: Folic Acid [Folvite] 1 mg PO QDAY #30 tablet 08/10/19 08/24/19 Unknown Rx RX: Furosemide [Lasix TAB] 40 mg PO QDAY #30 tablet 08/10/19 08/24/19 Unknown Rx RX: NIFEdipine XL [Procardia Xl] 60 mg PO QDAY #30 tablet 08/10/19 08/24/19 Unknown Rx RX: Pravastatin Sodium 20 mg PO QHS #60 tablet 08/10/19 08/24/19 Unknown Rx [Pravastatin] RX: Thiamine [Vitamin B-1] 100 mg PO QDAY #30 tablet 08/10/19 08/24/19 Unknown Rx RX: levETIRAcetam [Keppra TAB] 750 mg PO BID #60 tablet 08/10/19 08/24/19 Unknown Rx Active Meds: Active Medications Acetaminophen (Tylenol) 650 mg PO Q4H PRN PRN Reason: Pain MILD(1-3)/Fever >100.5/TORIBIO Acetaminophen/Hydrocodone Bitart ([place] 5/325) 1 each PO Q6H PRN PRN Reason: Pain, Moderate (4-6) Last Admin: 08/25/19 15:27 Dose: 1 each Documented by: Albuterol (Proventil) 2.5 mg IH Q4HRT PRN PRN Reason: Shortness Of Breath Aspirin (Baby Aspirin) 81 mg PO QDAY [facility] Last Admin: 08/25/19 09:18 Dose: 81 mg Documented by: Carvedilol (Coreg) 25 mg PO BID [facility] Last Admin: 08/26/19 09:34 Dose: 25 mg Documented by: Folic Acid (Folvite) 1 mg PO QDAY [facility] Last Admin: 08/25/19 09:17 Dose: 1 mg Documented by: Furosemide (Lasix) 40 mg PO QDAY [facility] Last Admin: 08/25/19 09:18 Dose: 40 mg Documented by: Heparin Sodium (Porcine) (Heparin) 5,000 unit SUB-Q Q12HR [facility] Last Admin: 08/25/19 22:00 Dose: Not Given Documented by: Hydralazine HCl (Apresoline) 50 mg PO Q8HR [facility] Last Admin: 08/26/19 06:22 Dose: 50 mg Documented by: Hydralazine HCl (Apresoline) 20 mg IV Q4HR PRN PRN Reason: SBP>170 or DBP>110 Levetiracetam (Keppra) 750 mg PO BID [facility] Last Admin: 08/26/19 09:34 Dose: 750 mg Documented by: Morphine Sulfate (Morphine) 2 mg IV Q4H PRN PRN Reason: Pain, Moderate (4-6) Last Admin: 08/25/19 07:30 Dose: 2 mg Documented by: Nifedipine (Procardia Xl) 60 mg PO QDAY [facility] Last Admin: 08/26/19 09:34 Dose: 60 mg Documented by: Ondansetron HCl (Zofran) 4 mg IV Q8H PRN PRN Reason: Nausea And Vomiting Last Admin: 08/25/19 15:27 Dose: 4 mg Documented by: Pravastatin Sodium (Pravachol) 20 mg PO QHS [facility] Last Admin: 08/25/19 22:00 Dose: Not Given Documented by: Sodium Bicarbonate (Sodium Bicarbonate) 650 mg PO TID [facility] Last Admin: 08/26/19 08:06 Dose: Not Given Documented by: Sodium Chloride (Sodium Chloride Flush Syringe 10 Ml) 10 ml IV BID [facility] Last Admin: 08/26/19 06:22 Dose: 10 ml Documented by: Sodium Chloride (Sodium Chloride Flush Syringe 10 Ml) 10 ml IV PRN PRN PRN Reason: LINE FLUSH Thiamine HCl (Vitamin B-1) 100 mg PO QDAY [facility] Last Admin: 08/25/19 09:23 Dose: Not Given Documented by: Review of Systems All systems: negative Exam - Constitutional Vitals: Temp Pulse Resp BP Pulse Ox 98.4 F 77 18 164/102 95 08/26/19 03:39 08/26/19 09:34 08/26/19 03:39 08/26/19 09:34 08/26/19 09:08 General appearance: Present: no acute distress - EENT Eyes: Present: EOM intact ENT: hearing intact - Neck Neck: Present: supple, normal ROM - Respiratory Respiratory effort: normal - Extremities Extremities: no ischemia - Abdominal General gastrointestinal: Present: deferred Male genitourinary: Present: deferred - Rectal Rectal Exam: deferred - Psychiatric Psychiatric: appropriate mood/affect, cooperative Results - Labs CBC & Chem 7: 08/26/19 04:36 08/26/19 04:36 Labs: Abnormal lab results 08/25/19 08/26/19 08/26/19 Range/Units 22:10 04:36 04:36 WBC 3.9 L (4.5-11.0) K/mm3 RBC 2.35 L (3.65-5.03) M/mm3 Hgb 7.8 L (11.8-15.2) gm/dl Hct 23.5 L (35.5-45.6) % MCV 100 H (84-94) fl MCH 33 H (28-32) pg RDW 16.6 H (13.2-15.2) % Lymph % (Auto) 7.4 L (13.4-35.0) % Lymph # 0.3 L (1.2-5.4) K/mm3 Seg Neutrophils % 84.8 H (40.0-70.0) % Chloride 112.0 H (98-107) mmol/L Carbon Dioxide 17 L (22-30) mmol/L BUN 69 H (9-20) mg/dL Creatinine 6.4 H (0.8-1.5) mg/dL Calcium 8.0 L (8.4-10.2) mg/dL Phosphorus 5.00 H (2.5-4.5) mg/dL Urine Creatinine 65.7 H (0.1-20.0) mg/dL Urine Total Protein 86 H (5-11.8) mg/dL Assessment and Plan Patient will need to undergo placement of tunneled hemodialysis catheter. This will be scheduled for tomorrow. Patient be nothing by mouth after midnight.
[2019-08-26] MEDS: FUROSEMIDE 40 MG TAB PO SCH (11:02)
[2019-08-26] MEDS: FOLIC ACID 1 MG TAB PO SCH (11:02)
[2019-08-26] MEDS: ASPIRIN 81 MG TAB CHEW PO SCH (11:03)
[2019-08-26] MEDS: HEPARIN 5,000 UNIT/1 ML VIAL SUB-Q SCH ×2 (11:03→22:12)
[2019-08-26] MEDS: THIAMINE 100 MG TAB PO SCH (11:03)
--- NOTE | 2019-08-26 11:04 | Progress Note ---
Subjective Date of service: 08/26/19 Principal diagnosis: ESRD Interval history: Assessment and Plan Chronic systolic heart failure Chronic renal failure Acute respiratory failure Non-Ischemic cardiomyopathy EF 20-25% by echo 07/2019. no ischemia by MPI 12/2016. Anemia Htn Seizure disorder Hx of Tobacco and cocaine abuse Noncompliance with medical therapy and outpatient follow up. Recommend: Sodium/fluid restriction. Continue medical therapy for chronic systolic heart failure and nonischemic cardiomyopathy. Objective Vital Signs Temp Pulse Resp BP Pulse Ox 08/26/19 09:34 77 164/102 08/26/19 09:08 95 08/26/19 03:39 98.4 F 75 18 155/102 95 08/25/19 23:21 98.1 F 75 18 146/99 97 08/25/19 20:15 99 08/25/19 19:51 73 08/25/19 19:39 97.4 F L 76 18 147/90 98 08/25/19 16:32 97.6 F 73 18 137/83 98 08/25/19 12:11 97.7 F 73 18 147/87 96 - Physical Examination General: No Apparent Distress HEENT: Positive: PERRL Neck: Positive: neck supple, trachea midline Cardiac: Positive: Reg Rate and Rhythm, S1/S2 Lungs: Positive: Normal Exam Neuro: Positive: Grossly Intact Abdomen: Positive: Soft. Negative: Pulsations/Bruits Extremities: Absent: edema - Labs and Meds CBC 08/26/19 Range/Units 04:36 WBC 3.9 L (4.5-11.0) K/mm3 RBC 2.35 L (3.65-5.03) M/mm3 Hgb 7.8 L (11.8-15.2) gm/dl Hct 23.5 L (35.5-45.6) % Plt Count 223 (140-440) K/mm3 Lymph # 0.3 L (1.2-5.4) K/mm3 [place] # 0.2 (0.0-0.8) K/mm3 Eos # 0.1 (0.0-0.4) K/mm3 Baso # 0.0 (0.0-0.1) K/mm3 Comprehensive Metabolic Panel 08/26/19 Range/Units 04:36 Sodium 141 (137-145) mmol/L Potassium 4.9 (3.6-5.0) mmol/L Chloride 112.0 H (98-107) mmol/L Carbon Dioxide 17 L (22-30) mmol/L BUN 69 H (9-20) mg/dL Creatinine 6.4 H (0.8-1.5) mg/dL Glucose 76 (75-100) mg/dL Calcium 8.0 L (8.4-10.2) mg/dL
--- NOTE | 2019-08-26 14:49 | Progress Note ---
Assessment and Plan Assessment and plan: Acute respiratory failure due to CHF exacerbation Admitted to Tele Supplemental Oxygen off BIPAP Acute on chronic systolic CHF Lasix iv given in ED consulted Cardiology, following Patient states he has been non-compliant, did not fill prescriptions after discharge about 2 weeks ago Resume home meds ESRD had Acute on chronic kidney disease Consulted Nephrology, following Nephrology recommends initiating hemodialysis Hypertensive emergency he was started on Nitro drip resume home meds and hopefully taper of Nitro drip medical non-compliance He states he did not fill any of prescriptions after discharge from here 2 weeks ago. I counseled him on importance of taking meds and following with Physician Seizure disorder resume keppra seizure precautions Full code status History Interval history: feels better, Less shortness of breath No chest pain Hospitalist Physical - Physical exam Narrative exam: Gen: Not in acute distress, lying in bed,BIPAP on HEENT: Normocephalic, atraumatic Neck: supple, no JVD Heart: S1 and S2 reg, no murmurs, rubs or gallop Lungs: Bilateral basal crackles, no wheezing, Abd: soft, non tender, non distended, normal BS, Ext: Bilateral edema of legs, no clubbing, no cyanosis Neuro: Awake, alert, oriented X 3, No focal neurological signs - Constitutional Vitals: Temp Pulse Resp BP Pulse Ox 98.4 F 72 18 109/62 89 08/26/19 12:42 08/26/19 14:41 08/26/19 12:42 08/26/19 14:41 08/26/19 12:42 General appearance: Present: other (on Bipap) Results - Labs CBC & Chem 7: 08/26/19 04:36 08/26/19 04:36 Labs: Laboratory Last Values WBC 3.9 K/mm3 (4.5-11.0) L 08/26/19 04:36 RBC 2.35 M/mm3 (3.65-5.03) L 08/26/19 04:36 Hgb 7.8 gm/dl (11.8-15.2) L 08/26/19 04:36 Hct 23.5 % (35.5-45.6) L 08/26/19 04:36 MCV 100 fl (84-94) H 08/26/19 04:36 MCH 33 pg (28-32) H 08/26/19 04:36 MCHC 33 % (32-34) 08/26/19 04:36 RDW 16.6 % (13.2-15.2) H 08/26/19 04:36 Plt Count 223 K/mm3 (140-440) 08/26/19 04:36 Lymph % (Auto) 7.4 % (13.4-35.0) L 08/26/19 04:36 [place] % (Auto) 5.3 % (0.0-7.3) 08/26/19 04:36 Eos % (Auto) 1.8 % (0.0-4.3) 08/26/19 04:36 Baso % (Auto) 0.7 % (0.0-1.8) 08/26/19 04:36 Lymph # 0.3 K/mm3 (1.2-5.4) L 08/26/19 04:36 [place] # 0.2 K/mm3 (0.0-0.8) 08/26/19 04:36 Eos # 0.1 K/mm3 (0.0-0.4) 08/26/19 04:36 Baso # 0.0 K/mm3 (0.0-0.1) 08/26/19 04:36 Seg Neutrophils % 84.8 % (40.0-70.0) H 08/26/19 04:36 Seg Neutrophils # 3.3 K/mm3 (1.8-7.7) 08/26/19 04:36 PT 13.8 Sec. (12.2-14.9) 08/24/19 06:30 INR 1.07 (0.87-1.13) 08/24/19 06:30 APTT 27.8 Sec. (24.2-36.6) 08/24/19 06:30 Sodium 141 mmol/L (137-145) 08/26/19 04:36 Potassium 4.9 mmol/L (3.6-5.0) 08/26/19 04:36 Chloride 112.0 mmol/L (98-107) H 08/26/19 04:36 Carbon Dioxide 17 mmol/L (22-30) L 08/26/19 04:36 Anion Gap 17 mmol/L 08/26/19 04:36 BUN 69 mg/dL (9-20) H 08/26/19 04:36 Creatinine 6.4 mg/dL (0.8-1.5) H 08/26/19 04:36 Estimated GFR 11 ml/min 08/26/19 04:36 BUN/Creatinine Ratio 11 % 08/26/19 04:36 Glucose 76 mg/dL (75-100) 08/26/19 04:36 Calcium 8.0 mg/dL (8.4-10.2) L 08/26/19 04:36 Phosphorus 5.00 mg/dL (2.5-4.5) H 08/26/19 04:36 Magnesium 1.50 mg/dL (1.7-2.3) L 08/24/19 06:30 Total Bilirubin < 0.20 mg/dL (0.1-1.2) 08/24/19 06:30 AST 25 units/L (5-40) 08/24/19 06:30 ALT 45 units/L (7-56) 08/24/19 06:30 Alkaline Phosphatase 165 units/L (35-129) H 08/24/19 06:30 Total Creatine Kinase 154 units/L (55-170) 08/24/19 06:30 Troponin T 0.031 ng/mL (0.00-0.029) H 08/24/19 06:30 Total Protein 6.5 g/dL (6.3-8.2) 08/24/19 06:30 Albumin 3.7 g/dL (3.9-5) L 08/24/19 06:30 Albumin/Globulin Ratio 1.3 % 08/24/19 06:30 Triglycerides 65 mg/dL (2-149) 08/24/19 06:30 Cholesterol 127 mg/dL (50-199) 08/24/19 06:30 LDL Cholesterol Direct 69 mg/dL (50-130) 08/24/19 06:30 HDL Cholesterol 53 mg/dL (40-59) 08/24/19 06:30 Cholesterol/HDL Ratio 2.39 % 08/24/19 06:30 Urine Color Yellow (Yellow) 08/24/19 Unknown Urine Turbidity Clear (Clear) 08/24/19 Unknown Urine pH 5.0 (5.0-7.0) 08/24/19 Unknown Ur Specific [place] 1.014 (1.003-1.030) 08/24/19 Unknown Urine Protein >2000 mg dl mg/dL (Negative) 08/24/19 Unknown Urine Glucose (UA) 50 mg/dL (Negative) 08/24/19 Unknown Urine Ketones Neg mg/dL (Negative) 08/24/19 Unknown Urine Blood Sm (Negative) 08/24/19 Unknown Urine Nitrite Neg (Negative) 08/24/19 Unknown Urine Bilirubin Neg (Negative) 08/24/19 Unknown Urine Urobilinogen < 2.0 mg/dL (<2.0) 08/24/19 Unknown Ur Leukocyte Esterase Neg (Negative) 08/24/19 Unknown Urine WBC (Auto) 2.0 /HPF (0.0-6.0) 08/24/19 Unknown Urine RBC (Auto) 2.0 /HPF (0.0-6.0) 08/24/19 Unknown Urine Creatinine 65.7 mg/dL (0.1-20.0) H 08/25/19 22:10 Protein/Creatinin Ratio 1.31 08/25/19 22:10 Urine Sodium 81 mmol/L 08/25/19 22:10 Urine Total Protein 86 mg/dL (5-11.8) H 08/25/19 22:10 Active Medications - Current Medications Current Medications: Generic Name Dose Route Start Last Admin Trade Name Freq PRN Reason Stop Dose Admin Acetaminophen 650 mg 08/24/19 14:55 Tylenol PO Q4H PRN Pain MILD(1-3)/Fever >100.5/TORIBIO Acetaminophen/Hydrocodone Bitart 1 each 08/25/19 15:01 08/25/19 15:27 [place] 5/325 PO 1 each Q6H PRN Administration Pain, Moderate (4-6) Albuterol 2.5 mg 08/24/19 14:55 Proventil IH Q4HRT PRN Shortness Of Breath Aspirin 81 mg 08/25/19 10:00 08/26/19 11:03 Baby Aspirin PO 81 mg QDAY WILL Administration Carvedilol 25 mg 08/24/19 10:00 08/26/19 09:34 Coreg PO 25 mg BID WILL Administration Folic Acid 1 mg 08/24/19 13:00 08/26/19 11:02 Folvite PO 1 mg QDAY WILL Administration Furosemide 40 mg 08/25/19 10:00 08/26/19 11:02 Lasix PO 40 mg QDAY WILL Administration Heparin Sodium (Porcine) 5,000 unit 08/24/19 22:00 08/26/19 11:03 Heparin SUB-Q 5,000 unit Q12HR WILL Administration Hydralazine HCl 50 mg 08/24/19 09:00 08/26/19 14:41 Apresoline PO 50 mg Q8HR WILL Administration Hydralazine HCl 20 mg 08/24/19 15:17 Apresoline IV Q4HR PRN SBP>170 or DBP>110 Isosorbide Dinitrate 10 mg 08/26/19 12:00 Isordil Titradose PO BID WILL Levetiracetam 750 mg 08/24/19 10:00 08/26/19 09:34 Keppra PO 750 mg BID WILL Administration Morphine Sulfate 2 mg 08/24/19 14:55 08/25/19 07:30 Morphine IV 2 mg Q4H PRN Administration Pain, Moderate (4-6) Nifedipine 60 mg 08/24/19 13:00 08/26/19 09:34 Procardia Xl PO 60 mg QDAY WILL Administration Ondansetron HCl 4 mg 08/24/19 14:55 08/25/19 15:27 Zofran IV 4 mg Q8H PRN Administration Nausea And Vomiting Pravastatin Sodium 20 mg 08/24/19 22:00 08/25/19 22:00 Pravachol PO Not Given QHS [facility] Sodium Bicarbonate 650 mg 08/25/19 20:00 08/26/19 14:41 Sodium Bicarbonate PO 650 mg TID WILL Administration Sodium Chloride 10 ml 08/24/19 22:00 08/26/19 11:03 Sodium Chloride Flush Syringe 10 Ml IV 10 ml BID WILL Administration Sodium Chloride 10 ml 08/24/19 14:55 Sodium Chloride Flush Syringe 10 Ml IV PRN PRN LINE FLUSH Thiamine HCl 100 mg 08/24/19 13:00 08/26/19 11:03 Vitamin B-1 PO 100 mg QDAY WILL Administration
[2019-08-26 15:36] LABS: Hepatitis B Surface Antigen Non-Reactive (Negative); Hepatitis C Virus Antibody Non-Reactive (NonReactive)
[2019-08-26] MEDS: ISOSORBIDE DINITRATE 10 MG TAB PO SCH ×2 (16:28→22:15)
--- NOTE | 2019-08-26 17:28 | Ultrasound Report ---
ULTRASOUND RENAL INDICATION / CLINICAL INFORMATION: Renal Failure. COMPARISON: None available. FINDINGS: RIGHT KIDNEY: Length = 10.5 cm. [normal > 9 cm] - Parenchymal Thickness = 1.5 cm. [normal > 1.5 cm] - Echogenicity: Increased - Hydronephrosis: None. - Cyst or mass: No significant abnormality. - Stones: None seen. LEFT KIDNEY: Length = 10.4 cm. [normal > 9 cm] - Parenchymal Thickness = 1.9 cm. [normal > 1.5 cm] - Echogenicity: Increased - Hydronephrosis: None. - Cyst or mass: Simple cyst in the upper pole measuring 1.3 cm and another simple cyst measuring 1.4 cm in the lower pole. - Stones: None seen. URINARY BLADDER: No significant abnormality. FREE FLUID: None. ADDITIONAL FINDINGS: None. IMPRESSION: 1. Abnormal echogenic kidneys. 2. Simple left renal cysts. Signer Name: Mark Gonzales MD Signed: 08/26/2019 5:24 PM Workstation Name: [id number]
[2019-08-26] MEDS: PRAVASTATIN 20 MG TAB PO SCH (22:10)
[2019-08-27] MEDS: hydrALAZINE 25 MG TAB PO SCH ×3 (06:50→21:41)
[2019-08-27] MEDS: SODIUM BICARBONATE 650 MG TAB PO SCH ×3 (08:02→19:29)
--- NOTE | 2019-08-27 08:22 | Progress Note ---
Assessment and Plan Assessment: Acute on chronic systolic heart failure ESRD, not on HD Pulmonary Edema Hypertension Metabolic Acidosis Prescription Non-compliance Plan: -cont to have severe renal failure, dialysis risk and benefit discussed with patient, all questions answered, agreeable to initiate HD, discussed with vascular, permcath to be placed today, HD after catheter placement - Continue on Lasix 40 mg po daily, adjust as needed - cont Sodium Bicarbonate 650 mg po TID - Renally dose meds - Strict I&O monitoring - Obtain daily weights - Continue to monitor Zach paulino MD [phone] Subjective Date of service: 08/27/19 Principal diagnosis: ESRD Interval history: denies acute issues, was asking about dialysis, all questions were answered and patient verbalized understanding Objective - Vital Signs Vital signs: Vital Signs - 12hr 08/26/19 08/26/19 08/26/19 20:51 22:31 23:14 Temperature 98.4 F Pulse Rate 72 72 Respiratory 18 Rate Blood Pressure 111/67 O2 Sat by Pulse 97 97 Oximetry 08/27/19 03:14 Temperature 98.4 F Pulse Rate 72 Respiratory 18 Rate Blood Pressure 139/80 O2 Sat by Pulse 98 Oximetry - General Appearance General appearance: well-developed, well-nourished EENT: ATNC, PERRL, mucous membranes moist Neck: no JVD, no carotid bruit Respiratory: Present: Clear to Ascultation. Absent: Rales, [place] Cardiology: regular, S1S2 Gastrointestinal: normoactive bowel sounds, no tenderness, no distended Integumentary: no rash, warm and dry Neurologic: no focal deficit, no asterixis, alert and oriented x3 Musculoskeletal: other (no edema in BLE) Psychiatric: mood/affect appropriate, cooperative - Lab 08/26/19 04:36 08/26/19 04:36 Most recent lab results Calcium 8.0 mg/dL (8.4-10.2) L 08/26/19 04:36 Phosphorus 5.00 mg/dL (2.5-4.5) H 08/26/19 04:36 Magnesium 1.50 mg/dL (1.7-2.3) L 08/24/19 06:30 Urine Creatinine 65.7 mg/dL (0.1-20.0) H 08/25/19 22:10 Urine Sodium 81 mmol/L 08/25/19 22:10 Urine Total Protein 86 mg/dL (5-11.8) H 08/25/19 22:10 Medications & Allergies - Medications Allergies/Adverse Reactions: Allergies No Known Allergies Allergy (Verified 04/09/19 13:12) Home Medications: Home Medications Medication Instructions Recorded Confirmed Last Taken Type Aspirin [Aspirin BABY CHEW TAB] 81 mg PO QDAY #30 tab.chew 11/22/17 08/24/19 04/10/19 Rx amLODIPine 10 mg PO QDAY #30 tablet 04/14/19 08/24/19 Unknown Rx carvediloL [Coreg] 25 mg PO BID #60 tablet 04/14/19 08/24/19 Unknown Rx hydrALAZINE [Apresoline TAB] 50 mg PO Q8H #90 tablet 04/14/19 08/24/19 Unknown Rx Benzonatate [Tessalon Perles] 100 mg PO Q8HR #10 capsule 08/10/19 08/24/19 Unknown Rx Folic Acid [Folvite] 1 mg PO QDAY #30 tablet 08/10/19 08/24/19 Unknown Rx Furosemide [Lasix TAB] 40 mg PO QDAY #30 tablet 08/10/19 08/24/19 Unknown Rx NIFEdipine XL [Procardia Xl] 60 mg PO QDAY #30 tablet 08/10/19 08/24/19 Unknown Rx Pravastatin Sodium [Pravastatin] 20 mg PO QHS #60 tablet 08/10/19 08/24/19 Unknown Rx Thiamine [Vitamin B-1] 100 mg PO QDAY #30 tablet 08/10/19 08/24/19 Unknown Rx levETIRAcetam [Keppra TAB] 750 mg PO BID #60 tablet 08/10/19 08/24/19 Unknown Rx Active Medications: Generic Name Dose Route Start Last Admin Trade Name Freq PRN Reason Stop Dose Admin Acetaminophen 650 mg 08/24/19 14:55 Tylenol PO Q4H PRN Pain MILD(1-3)/Fever >100.5/TORIBIO Acetaminophen/Hydrocodone Bitart 1 each 08/25/19 15:01 08/25/19 15:27 [place] 5/325 PO 1 each Q6H PRN Administration Pain, Moderate (4-6) Albuterol 2.5 mg 08/24/19 14:55 Proventil IH Q4HRT PRN Shortness Of Breath Aspirin 81 mg 08/25/19 10:00 08/26/19 11:03 Baby Aspirin PO 81 mg QDAY WILL Administration Carvedilol 25 mg 08/24/19 10:00 08/26/19 22:09 Coreg PO 25 mg BID WILL Administration Folic Acid 1 mg 08/24/19 13:00 08/26/19 11:02 Folvite PO 1 mg QDAY WILL Administration Furosemide 40 mg 08/25/19 10:00 08/26/19 11:02 Lasix PO 40 mg QDAY WILL Administration Heparin Sodium (Porcine) 5,000 unit 08/24/19 22:00 08/26/19 22:12 Heparin SUB-Q 5,000 unit Q12HR WILL Administration Hydralazine HCl 50 mg 08/24/19 09:00 08/27/19 06:50 Apresoline PO 50 mg Q8HR WILL Administration Hydralazine HCl 20 mg 08/24/19 15:17 Apresoline IV Q4HR PRN SBP>170 or DBP>110 Isosorbide Dinitrate 10 mg 08/26/19 12:00 08/26/19 22:15 Isordil Titradose PO 10 mg BID WILL Administration Levetiracetam 750 mg 08/24/19 10:00 08/26/19 22:08 Keppra PO 750 mg BID WILL Administration Morphine Sulfate 2 mg 08/24/19 14:55 08/25/19 07:30 Morphine IV 2 mg Q4H PRN Administration Pain, Moderate (4-6) Nifedipine 60 mg 08/24/19 13:00 08/26/19 09:34 Procardia Xl PO 60 mg QDAY WILL Administration Ondansetron HCl 4 mg 08/24/19 14:55 08/25/19 15:27 Zofran IV 4 mg Q8H PRN Administration Nausea And Vomiting Pravastatin Sodium 20 mg 08/24/19 22:00 08/26/19 22:10 Pravachol PO 20 mg QHS WILL Administration Sodium Bicarbonate 650 mg 08/25/19 20:00 08/26/19 22:10 Sodium Bicarbonate PO 650 mg TID WILL Administration Sodium Chloride 10 ml 08/24/19 22:00 08/26/19 22:13 Sodium Chloride Flush Syringe 10 Ml IV 10 ml BID WILL Administration Sodium Chloride 10 ml 08/24/19 14:55 Sodium Chloride Flush Syringe 10 Ml IV PRN PRN LINE FLUSH Thiamine HCl 100 mg 08/24/19 13:00 08/26/19 11:03 Vitamin B-1 PO 100 mg QDAY WILL Administration
[2019-08-27] MEDS ORDERED: LIDOCAINE (2%) 20 MG/1 ML VIAL 20 ML MDV INFILTRATI ONE (10:03)
[2019-08-27] MEDS ORDERED: SODIUM CHLORIDE 0.9% 250ML 250 ML ONE (10:03)
[2019-08-27] MEDS ORDERED: HEPARIN/NS 5000 UNIT/500ML 500 ML IR ONE (10:03)
[2019-08-27] MEDS ORDERED: fentaNYL 100 MCG/2 ML INJ ONE (10:04)
[2019-08-27] MEDS ORDERED: MIDAZOLAM 2 MG/2 ML INJ ONE (10:04)
[2019-08-27] MEDS ORDERED: ceFAZolin/Water 2 GM/20 ML 2 GM/20 ML SYRINGE IV ONE (10:19)
--- NOTE | 2019-08-27 10:39 | Progress Note ---
Subjective Date of service: 08/27/19 Principal diagnosis: ESRD Interval history: Follow-up, no orthopnea, no chest pain Assessment and Plan Chronic systolic heart failure Chronic renal failure Acute respiratory failure Non-Ischemic cardiomyopathy EF 20-25% by echo 07/2019. no ischemia by MPI 12/2016. Anemia Htn Seizure disorder Hx of Tobacco and cocaine abuse Noncompliance with medical therapy and outpatient follow up. Recommend: Sodium/fluid restriction. Continue medical therapy for chronic systolic heart failure and nonischemic cardiomyopathy. Objective Vital Signs Temp Pulse Resp BP Pulse Ox 08/27/19 10:00 96 08/27/19 08:28 20 96 08/27/19 08:10 97.9 F 71 18 168/103 99 08/27/19 03:14 98.4 F 72 18 139/80 98 08/26/19 23:14 98.4 F 72 18 111/67 97 08/26/19 22:31 97 08/26/19 20:51 72 08/26/19 19:43 98.0 F 81 18 145/90 96 08/26/19 17:18 97.5 F L 83 18 141/73 96 08/26/19 16:28 72 109/62 08/26/19 14:41 72 109/62 08/26/19 12:42 98.4 F 72 18 109/62 89 - Physical Examination General: No Apparent Distress HEENT: Positive: PERRL Neck: Positive: neck supple, trachea midline Cardiac: Positive: Reg Rate and Rhythm, S1/S2 Lungs: Positive: Normal Exam Neuro: Positive: Grossly Intact Abdomen: Positive: Soft. Negative: Pulsations/Bruits Extremities: Absent: edema
[2019-08-27] MEDS: HEPARIN 10,000 UNITS/10 ML VIAL ONE ×2 (11:03→11:04)
--- NOTE | 2019-08-27 11:11 | Operative Report ---
Operative Report Operative Report: Exam: Ultrasound and fluoroscopic guided placement of tunneled hemodialysis catheter Clinical indication: Patient with end-stage renal disease requiring dialysis access Date: 08/27/2019 Procedure: Following an explanation of the risks, benefits and alternatives; written informed consent was obtained. The patient was brought to the angiographic suite and placed in supine position on the examination table. Initial ultrasound evaluation of the neck demonstrated distended internal and external jugular veins. The patient's right neck and chest wall were prepped and draped in the usual sterile fashion. 1% lidocaine was used for anesthesia. Under ultrasound guidance, the right internal jugular vein was cannulated with a 7 cm 21-gauge needle. A 0.018 guidewire was advanced centrally. The needle was removed and a micro-sheath placed. The 0.018 guidewire was exchanged for a 0.035 guidewire and a micro-sheath exchange for a vertebral catheter. Together the vertebral catheter and guidewire were advanced into the IVC to document intravenous positioning and for anchoring. An appropriate catheter exit site was chosen along the lateral right chest wall. 1% lidocaine was used for anesthesia at the catheter exit site and along the tunnel tract. A Bard glide path tunneled hemodialysis catheter was then tunneled antegrade from the catheter exit site of the venotomy site. Following serial dilation over the guidewire under fluoroscopy, a 15 Japanese peel-away sheath was placed over the guidewire under fluoroscopy and advanced centrally. The trocar and guidewire were removed and the catheter inserted to the peel-away sheath. The peel-away sheath was removed and the catheter tip positioned in the proximal right atrium. Both ports flushed and aspirated easily and with and locked with appropriate volumes of heparin. The venotomy site was closed using 3-0 Vicryl suture and Dermabond. A sterile pressure dressing was then applied. The catheter exit site was approximated using 3-0 Vicryl suture and Dermabond. Sterile dressings were then applied. The patient tolerated the procedure well. There were no immediate post procedure complications. Conscious sedation was performed under the guidance or radiologic nursing. Continuous cardiopulmonary monitoring was utilized. Impression: Ultrasound and fluoroscopic guided placement of tunneled hemodialysis catheter via the right internal jugular vein.
[2019-08-27] MEDS ORDERED: SODIUM CHLORIDE*PRIMING MACHINE ONLY FOR DIALYSIS MC ONE (14:01)
[2019-08-27] MEDS: MORPHINE 2 MG/1 ML INJ IV PRN ×2 (14:53→19:29)
[2019-08-27] MEDS: levETIRAcetam 500 MG TAB PO SCH ×2 (14:57→21:41)
[2019-08-27] MEDS: ASPIRIN 81 MG TAB CHEW PO SCH (14:59)
[2019-08-27] MEDS: FUROSEMIDE 40 MG TAB PO SCH (14:59)
[2019-08-27] MEDS: carvediloL 25 MG TAB PO SCH ×2 (15:00→21:41)
[2019-08-27] MEDS: FOLIC ACID 1 MG TAB PO SCH (15:00)
[2019-08-27] MEDS: NIFEdipine XL 60 MG TAB PO SCH (15:00)
[2019-08-27] MEDS: HEPARIN 5,000 UNIT/1 ML VIAL SUB-Q SCH ×2 (15:03→21:42)
[2019-08-27] MEDS: ISOSORBIDE DINITRATE 10 MG TAB PO SCH ×2 (15:10→21:41)
[2019-08-27] MEDS: THIAMINE 100 MG TAB PO SCH (15:13)
--- NOTE | 2019-08-27 15:32 | Progress Note ---
Assessment and Plan Assessment and plan: Acute respiratory failure due to CHF exacerbation Admitted to Tele Supplemental Oxygen off BIPAP Acute on chronic systolic CHF Lasix iv given in ED consulted Cardiology, following Patient states he has been non-compliant, did not fill prescriptions after discharge about 2 weeks ago Resume home meds ESRD had Acute on chronic kidney disease Consulted Nephrology, following Nephrology recommends initiating hemodialysis For Dialysis cather placement and dialysis today Hypertensive emergency he was started on Nitro drip resume home meds and hopefully taper of Nitro drip medical non-compliance He states he did not fill any of prescriptions after discharge from here 2 weeks ago. I counseled him on importance of taking meds and following with Physician Seizure disorder resume keppra seizure precautions Full code status History Interval history: feels better, Less shortness of breath No chest pain Hospitalist Physical - Physical exam Narrative exam: Gen: Not in acute distress, lying in bed,BIPAP on HEENT: Normocephalic, atraumatic Neck: supple, no JVD Heart: S1 and S2 reg, no murmurs, rubs or gallop Lungs: Bilateral basal crackles, no wheezing, Abd: soft, non tender, non distended, normal BS, Ext: Bilateral edema of legs, no clubbing, no cyanosis Neuro: Awake, alert, oriented X 3, No focal neurological signs - Constitutional Vitals: Temp Pulse Resp BP Pulse Ox 97.9 F 72 20 203/114 96 08/27/19 08:10 08/27/19 15:00 08/27/19 08:28 08/27/19 15:00 08/27/19 10:00 General appearance: Present: other (on Bipap) Results - Labs CBC & Chem 7: 08/26/19 04:36 08/28/19 06:43 Labs: Laboratory Last Values WBC 3.9 K/mm3 (4.5-11.0) L 08/26/19 04:36 RBC 2.35 M/mm3 (3.65-5.03) L 08/26/19 04:36 Hgb 7.8 gm/dl (11.8-15.2) L 08/26/19 04:36 Hct 23.5 % (35.5-45.6) L 08/26/19 04:36 MCV 100 fl (84-94) H 08/26/19 04:36 MCH 33 pg (28-32) H 08/26/19 04:36 MCHC 33 % (32-34) 08/26/19 04:36 RDW 16.6 % (13.2-15.2) H 08/26/19 04:36 Plt Count 223 K/mm3 (140-440) 08/26/19 04:36 Lymph % (Auto) 7.4 % (13.4-35.0) L 08/26/19 04:36 [place] % (Auto) 5.3 % (0.0-7.3) 08/26/19 04:36 Eos % (Auto) 1.8 % (0.0-4.3) 08/26/19 04:36 Baso % (Auto) 0.7 % (0.0-1.8) 08/26/19 04:36 Lymph # 0.3 K/mm3 (1.2-5.4) L 08/26/19 04:36 [place] # 0.2 K/mm3 (0.0-0.8) 08/26/19 04:36 Eos # 0.1 K/mm3 (0.0-0.4) 08/26/19 04:36 Baso # 0.0 K/mm3 (0.0-0.1) 08/26/19 04:36 Seg Neutrophils % 84.8 % (40.0-70.0) H 08/26/19 04:36 Seg Neutrophils # 3.3 K/mm3 (1.8-7.7) 08/26/19 04:36 PT 13.8 Sec. (12.2-14.9) 08/24/19 06:30 INR 1.07 (0.87-1.13) 08/24/19 06:30 APTT 27.8 Sec. (24.2-36.6) 08/24/19 06:30 Sodium 141 mmol/L (137-145) 08/26/19 04:36 Potassium 4.9 mmol/L (3.6-5.0) 08/26/19 04:36 Chloride 112.0 mmol/L (98-107) H 08/26/19 04:36 Carbon Dioxide 17 mmol/L (22-30) L 08/26/19 04:36 Anion Gap 17 mmol/L 08/26/19 04:36 BUN 69 mg/dL (9-20) H 08/26/19 04:36 Creatinine 6.4 mg/dL (0.8-1.5) H 08/26/19 04:36 Estimated GFR 11 ml/min 08/26/19 04:36 BUN/Creatinine Ratio 11 % 08/26/19 04:36 Glucose 76 mg/dL (75-100) 08/26/19 04:36 Calcium 8.0 mg/dL (8.4-10.2) L 08/26/19 04:36 Phosphorus 5.00 mg/dL (2.5-4.5) H 08/26/19 04:36 Magnesium 1.50 mg/dL (1.7-2.3) L 08/24/19 06:30 Total Bilirubin < 0.20 mg/dL (0.1-1.2) 08/24/19 06:30 AST 25 units/L (5-40) 08/24/19 06:30 ALT 45 units/L (7-56) 08/24/19 06:30 Alkaline Phosphatase 165 units/L (35-129) H 08/24/19 06:30 Total Creatine Kinase 154 units/L (55-170) 08/24/19 06:30 Troponin T 0.031 ng/mL (0.00-0.029) H 08/24/19 06:30 Total Protein 6.5 g/dL (6.3-8.2) 08/24/19 06:30 Albumin 3.7 g/dL (3.9-5) L 08/24/19 06:30 Albumin/Globulin Ratio 1.3 % 08/24/19 06:30 Triglycerides 65 mg/dL (2-149) 08/24/19 06:30 Cholesterol 127 mg/dL (50-199) 08/24/19 06:30 LDL Cholesterol Direct 69 mg/dL (50-130) 08/24/19 06:30 HDL Cholesterol 53 mg/dL (40-59) 08/24/19 06:30 Cholesterol/HDL Ratio 2.39 % 08/24/19 06:30 Urine Color Yellow (Yellow) 08/24/19 Unknown Urine Turbidity Clear (Clear) 08/24/19 Unknown Urine pH 5.0 (5.0-7.0) 08/24/19 Unknown Ur Specific [place] 1.014 (1.003-1.030) 08/24/19 Unknown Urine Protein >2000 mg dl mg/dL (Negative) 08/24/19 Unknown Urine Glucose (UA) 50 mg/dL (Negative) 08/24/19 Unknown Urine Ketones Neg mg/dL (Negative) 08/24/19 Unknown Urine Blood Sm (Negative) 08/24/19 Unknown Urine Nitrite Neg (Negative) 08/24/19 Unknown Urine Bilirubin Neg (Negative) 08/24/19 Unknown Urine Urobilinogen < 2.0 mg/dL (<2.0) 08/24/19 Unknown Ur Leukocyte Esterase Neg (Negative) 08/24/19 Unknown Urine WBC (Auto) 2.0 /HPF (0.0-6.0) 08/24/19 Unknown Urine RBC (Auto) 2.0 /HPF (0.0-6.0) 08/24/19 Unknown Urine Creatinine 65.7 mg/dL (0.1-20.0) H 08/25/19 22:10 Protein/Creatinin Ratio 1.31 08/25/19 22:10 Urine Sodium 81 mmol/L 08/25/19 22:10 Urine Total Protein 86 mg/dL (5-11.8) H 08/25/19 22:10 Hepatitis A IgM Ab Non-reactive (NonReactive) 08/26/19 10:12 Hep Bs Antigen Non-reactive (Negative) 08/26/19 10:12 Hep B Core IgM Ab Non-reactive (NonReactive) 08/26/19 10:12 Hepatitis C Antibody Non-reactive (NonReactive) 08/26/19 10:12 Active Medications - Current Medications Current Medications: Generic Name Dose Route Start Last Admin Trade Name Freq PRN Reason Stop Dose Admin Acetaminophen 650 mg 08/24/19 14:55 Tylenol PO Q4H PRN Pain MILD(1-3)/Fever >100.5/TORIBIO Acetaminophen/Hydrocodone Bitart 1 each 08/25/19 15:01 08/25/19 15:27 [place] 5/325 PO 1 each Q6H PRN Administration Pain, Moderate (4-6) Albuterol 2.5 mg 08/24/19 14:55 Proventil IH Q4HRT PRN Shortness Of Breath Aspirin 81 mg 08/25/19 10:00 08/27/19 14:59 Baby Aspirin PO 81 mg QDAY WILL Administration Carvedilol 25 mg 08/24/19 10:00 08/27/19 15:00 Coreg PO 25 mg BID WILL Administration Folic Acid 1 mg 08/24/19 13:00 08/27/19 15:00 Folvite PO 1 mg QDAY WILL Administration Furosemide 40 mg 08/25/19 10:00 08/27/19 14:59 Lasix PO 40 mg QDAY WILL Administration Heparin Sodium (Porcine) 5,000 unit 08/24/19 22:00 08/27/19 15:03 Heparin SUB-Q 5,000 unit Q12HR WILL Administration Hydralazine HCl 50 mg 08/24/19 09:00 08/27/19 15:00 Apresoline PO 50 mg Q8HR WILL Administration Hydralazine HCl 20 mg 08/24/19 15:17 Apresoline IV Q4HR PRN SBP>170 or DBP>110 Isosorbide Dinitrate 10 mg 08/26/19 12:00 08/27/19 15:10 Isordil Titradose PO 10 mg BID WILL Administration Levetiracetam 750 mg 08/24/19 10:00 08/27/19 14:57 Keppra PO 750 mg BID WILL Administration Morphine Sulfate 2 mg 08/24/19 14:55 08/27/19 14:53 Morphine IV 2 mg Q4H PRN Administration Pain, Moderate (4-6) Nifedipine 60 mg 08/24/19 13:00 08/27/19 15:00 Procardia Xl PO 60 mg QDAY WILL Administration Ondansetron HCl 4 mg 08/24/19 14:55 08/25/19 15:27 Zofran IV 4 mg Q8H PRN Administration Nausea And Vomiting Pravastatin Sodium 20 mg 08/24/19 22:00 08/26/19 22:10 Pravachol PO 20 mg QHS WILL Administration Sodium Bicarbonate 650 mg 08/25/19 20:00 08/27/19 14:59 Sodium Bicarbonate PO 650 mg TID WILL Administration Sodium Chloride 10 ml 08/24/19 22:00 08/27/19 15:03 Sodium Chloride Flush Syringe 10 Ml IV 10 ml BID WILL Administration Sodium Chloride 10 ml 08/24/19 14:55 Sodium Chloride Flush Syringe 10 Ml IV PRN PRN LINE FLUSH Thiamine HCl 100 mg 08/24/19 13:00 08/27/19 15:13 Vitamin B-1 PO 100 mg QDAY WILL Administration
[2019-08-27] MEDS: PRAVASTATIN 20 MG TAB PO SCH (21:44)
[2019-08-28] MEDS: ZOLPIDEM 5 MG TAB PO PRN (00:20)
[2019-08-28] MEDS: hydrALAZINE 25 MG TAB PO SCH ×3 (05:45→22:37)
[2019-08-28 07:38] LABS: Calcium 8.1 mg/dL (8.4-10.2)
[2019-08-28] MEDS: MORPHINE 2 MG/1 ML INJ IV PRN (09:12)
[2019-08-28] MEDS: ASPIRIN 81 MG TAB CHEW PO SCH (10:15)
[2019-08-28] MEDS: SODIUM BICARBONATE 650 MG TAB PO SCH (10:15)
[2019-08-28] MEDS: FUROSEMIDE 40 MG TAB PO SCH (10:15)
[2019-08-28] MEDS: FOLIC ACID 1 MG TAB PO SCH (10:15)
[2019-08-28] MEDS: ISOSORBIDE DINITRATE 10 MG TAB PO SCH ×2 (10:15→22:35)
[2019-08-28] MEDS: carvediloL 25 MG TAB PO SCH ×2 (10:15→22:36)
[2019-08-28] MEDS: levETIRAcetam 500 MG TAB PO SCH ×2 (10:15→22:37)
[2019-08-28] MEDS: HEPARIN 5,000 UNIT/1 ML VIAL SUB-Q SCH ×2 (10:15→22:38)
[2019-08-28] MEDS: THIAMINE 100 MG TAB PO SCH (10:16)
[2019-08-28] MEDS: NIFEdipine XL 60 MG TAB PO SCH (10:16)
--- NOTE | 2019-08-28 10:47 | Progress Note ---
Subjective Date of service: 08/28/19 Principal diagnosis: ESRD Interval history: Chronic systolic heart failure Chronic renal failure Acute respiratory failure Non-Ischemic cardiomyopathy EF 20-25% by echo 07/2019. no ischemia by MPI 12/2016. Anemia Htn Seizure disorder Hx of Tobacco and cocaine abuse Noncompliance with medical therapy and outpatient follow up. Recommend: Sodium/fluid restriction. Continue medical therapy for chronic systolic heart failure and nonischemic car diomyopathy. Objective Vital Signs Temp Pulse Resp BP Pulse Ox 08/28/19 10:30 68 152/85 08/28/19 10:15 73 154/87 08/28/19 10:00 98.5 F 72 18 149/86 08/28/19 07:34 98.5 F 74 18 126/81 95 08/28/19 04:51 98.3 F 70 16 140/82 95 08/28/19 02:38 75 08/28/19 00:18 98.8 F 71 16 126/72 94 08/27/19 21:05 98 08/27/19 20:22 98.9 F 80 16 137/83 95 08/27/19 16:32 86 141/79 94 08/27/19 15:00 72 203/114 08/27/19 14:30 98.0 F 76 18 170/98 08/27/19 14:20 70 180/106 08/27/19 14:00 74 180/102 08/27/19 13:45 72 187/123 08/27/19 13:30 73 190/115 08/27/19 13:15 67 184/117 08/27/19 13:00 67 180/114 08/27/19 12:45 68 180/117 08/27/19 12:30 65 178/111 08/27/19 12:15 66 183/109 08/27/19 12:00 66 184/113 08/27/19 11:50 97.9 F 68 18 182/110 08/27/19 11:30 75 - Physical Examination General: No Apparent Distress HEENT: Positive: PERRL Neck: Positive: neck supple, trachea midline Cardiac: Positive: Reg Rate and Rhythm, S1/S2 Lungs: Positive: Normal Exam Neuro: Positive: Grossly Intact Abdomen: Positive: Soft. Negative: Pulsations/Bruits Extremities: Absent: edema - Labs and Meds Comprehensive Metabolic Panel 08/28/19 Range/Units 06:43 Sodium 142 (137-145) mmol/L Potassium 4.2 (3.6-5.0) mmol/L Chloride 108.4 H (98-107) mmol/L Carbon Dioxide 24 D (22-30) mmol/L BUN 39 H (9-20) mg/dL Creatinine 4.3 H (0.8-1.5) mg/dL Glucose 137 H (75-100) mg/dL Calcium 8.1 L (8.4-10.2) mg/dL
[2019-08-28] MEDS ORDERED: SODIUM CHLORIDE*PRIMING MACHINE ONLY FOR DIALYSIS MC ONE ×2 (10:48→12:50)
--- NOTE | 2019-08-28 10:59 | Progress Note ---
Assessment and Plan Acute on chronic systolic heart failure ESRD, now on HD Pulmonary Edema Left simple renal cyst Hypertension Metabolic Acidosis Anemia Prescription Non-compliance Plan: - S/p HD yesterday for UF and clearance, UF removed 2 liters - HD again today for UF and clearance - Assess need for HD on daily basis - Epogen dosing for anemia management - S/p Right IJ Perm catheter placement by Dr Murphy on 08/27/19 - On Lasix 40 mg po daily, adjust as needed - D/C Sodium Bicarbonate 650 mg po TID since initiated on HD - Consulted CM for outpatient dialysis placement - Renally dose meds - Strict I&O - Renal plan d/w Dr Bettencourt Subjective Date of service: 08/28/19 Principal diagnosis: ESRD Interval history: Pt seen in HD unit, states feels better today, denies nausea or vomiting after eating breakfast this morning, no acute distress Objective - Vital Signs Vital signs: Vital Signs - 12hr 08/28/19 08/28/19 08/28/19 00:18 02:38 04:51 Temperature 98.8 F 98.3 F Pulse Rate 71 75 70 Respiratory 16 16 Rate Blood Pressure 126/72 140/82 O2 Sat by Pulse 94 95 Oximetry 08/28/19 08/28/19 08/28/19 07:34 10:00 10:15 Temperature 98.5 F 98.5 F Pulse Rate 74 72 73 Respiratory 18 18 Rate Blood Pressure 126/81 149/86 154/87 O2 Sat by Pulse 95 Oximetry 08/28/19 10:30 Temperature Pulse Rate 68 Respiratory Rate Blood Pressure 152/85 O2 Sat by Pulse Oximetry - General Appearance General appearance: well-developed EENT: ATNC Neck: no JVD Respiratory: Present: Decreased Breath Sounds Cardiology: regular, S1S2, other (ACCESS: Right IJ Perm Catheter intact) Gastrointestinal: normoactive bowel sounds Integumentary: warm and dry Neurologic: alert and oriented x3 Musculoskeletal: other (trace edema to BLE) Psychiatric: mood/affect appropriate, cooperative - Lab 08/26/19 04:36 08/28/19 06:43 Most recent lab results Calcium 8.1 mg/dL (8.4-10.2) L 08/28/19 06:43 Phosphorus 5.00 mg/dL (2.5-4.5) H 08/26/19 04:36 Magnesium 1.50 mg/dL (1.7-2.3) L 08/24/19 06:30 Urine Creatinine 65.7 mg/dL (0.1-20.0) H 08/25/19 22:10 Urine Sodium 81 mmol/L 08/25/19 22:10 Urine Total Protein 86 mg/dL (5-11.8) H 08/25/19 22:10 Medications & Allergies - Medications Allergies/Adverse Reactions: Allergies No Known Allergies Allergy (Verified 04/09/19 13:12) Home Medications: Home Medications Medication Instructions Recorded Confirmed Last Taken Type Aspirin [Aspirin BABY CHEW TAB] 81 mg PO QDAY #30 tab.chew 11/22/17 08/24/19 04/10/19 Rx amLODIPine 10 mg PO QDAY #30 tablet 04/14/19 08/24/19 Unknown Rx carvediloL [Coreg] 25 mg PO BID #60 tablet 04/14/19 08/24/19 Unknown Rx hydrALAZINE [Apresoline TAB] 50 mg PO Q8H #90 tablet 04/14/19 08/24/19 Unknown Rx Benzonatate [Tessalon Perles] 100 mg PO Q8HR #10 capsule 08/10/19 08/24/19 Unknown Rx Folic Acid [Folvite] 1 mg PO QDAY #30 tablet 08/10/19 08/24/19 Unknown Rx Furosemide [Lasix TAB] 40 mg PO QDAY #30 tablet 08/10/19 08/24/19 Unknown Rx NIFEdipine XL [Procardia Xl] 60 mg PO QDAY #30 tablet 08/10/19 08/24/19 Unknown Rx Pravastatin Sodium [Pravastatin] 20 mg PO QHS #60 tablet 08/10/19 08/24/19 Unknown Rx Thiamine [Vitamin B-1] 100 mg PO QDAY #30 tablet 08/10/19 08/24/19 Unknown Rx levETIRAcetam [Keppra TAB] 750 mg PO BID #60 tablet 08/10/19 08/24/19 Unknown Rx Active Medications: Generic Name Dose Route Start Last Admin Trade Name Freq PRN Reason Stop Dose Admin Acetaminophen 650 mg 08/24/19 14:55 Tylenol PO Q4H PRN Pain MILD(1-3)/Fever >100.5/TORIBIO Acetaminophen/Hydrocodone Bitart 1 each 08/25/19 15:01 08/25/19 15:27 [place] 5/325 PO 1 each Q6H PRN Administration Pain, Moderate (4-6) Albuterol 2.5 mg 08/24/19 14:55 Proventil IH Q4HRT PRN Shortness Of Breath Aspirin 81 mg 08/25/19 10:00 08/28/19 10:15 Baby Aspirin PO Not Given QDAY [facility] Carvedilol 25 mg 08/24/19 10:00 08/28/19 10:15 Coreg PO Not Given BID [facility] Folic Acid 1 mg 08/24/19 13:00 08/28/19 10:15 Folvite PO Not Given QDAY [facility] Furosemide 40 mg 08/25/19 10:00 08/28/19 10:15 Lasix PO Not Given QDAY [facility] Heparin Sodium (Porcine) 5,000 unit 08/24/19 22:00 08/28/19 10:15 Heparin SUB-Q Not Given Q12HR [facility] Hydralazine HCl 50 mg 08/24/19 09:00 08/28/19 05:45 Apresoline PO 50 mg Q8HR [facility] Administration Hydralazine HCl 20 mg 08/24/19 15:17 Apresoline IV Q4HR PRN SBP>170 or DBP>110 Isosorbide Dinitrate 10 mg 08/26/19 12:00 08/28/19 10:15 Isordil Titradose PO Not Given BID [facility] Levetiracetam 750 mg 08/24/19 10:00 08/28/19 10:15 Keppra PO Not Given BID [facility] Morphine Sulfate 2 mg 08/24/19 14:55 08/28/19 09:12 Morphine IV 2 mg Q4H PRN Administration Pain, Moderate (4-6) Nifedipine 60 mg 08/24/19 13:00 08/28/19 10:16 Procardia Xl PO Not Given QDAY [facility] Ondansetron HCl 4 mg 08/24/19 14:55 08/25/19 15:27 Zofran IV 4 mg Q8H PRN Administration Nausea And Vomiting Pravastatin Sodium 20 mg 08/24/19 22:00 08/27/19 21:44 Pravachol PO 20 mg QHS WILL Administration Sodium Bicarbonate 650 mg 08/25/19 20:00 08/28/19 10:15 Sodium Bicarbonate PO Not Given TID [facility] Sodium Chloride 10 ml 08/24/19 22:00 08/28/19 10:16 Sodium Chloride Flush Syringe 10 Ml IV Not Given BID WILL Sodium Chloride 10 ml 08/24/19 14:55 Sodium Chloride Flush Syringe 10 Ml IV PRN PRN LINE FLUSH Thiamine HCl 100 mg 08/24/19 13:00 08/28/19 10:16 Vitamin B-1 PO Not Given QDAY [facility] Zolpidem Tartrate 5 mg 08/27/19 23:42 08/28/19 00:20 Ambien PO 5 mg QHS PRN Administration Sleep
[2019-08-28] MEDS ORDERED: EPOETIN ALFA 10,000 UNIT/1 ML INJ SUB-Q SCH (13:00)
--- NOTE | 2019-08-28 14:55 | Progress Note ---
Assessment and Plan Assessment and plan: Acute respiratory failure due to CHF exacerbation Admitted to Tele Supplemental Oxygen off BIPAP Acute on chronic systolic CHF Lasix iv given in ED consulted Cardiology, following Patient states he has been non-compliant, did not fill prescriptions after discharge about 2 weeks ago Resume home meds ESRD had Acute on chronic kidney disease Consulted Nephrology, following Nephrology recommended initiating hemodialysis Started on hemodialysis Hypertensive emergency he was started on Nitro drip resume home meds and hopefully taper of Nitro drip medical non-compliance He states he did not fill any of prescriptions after discharge from here 2 weeks ago. I counseled him on importance of taking meds and following with Physician Seizure disorder resume keppra seizure precautions Full code status History Interval history: feels better, Less shortness of breath No chest pain Started on dialysis Hospitalist Physical - Physical exam Narrative exam: Gen: Not in acute distress, lying in bed,BIPAP on HEENT: Normocephalic, atraumatic Neck: supple, no JVD Heart: S1 and S2 reg, no murmurs, rubs or gallop Lungs: Bilateral basal crackles, no wheezing, Abd: soft, non tender, non distended, normal BS, Ext: Bilateral edema of legs, no clubbing, no cyanosis Neuro: Awake, alert, oriented X 3, No focal neurological signs - Constitutional Vitals: Temp Pulse Resp BP Pulse Ox 98.4 F 65 18 160/95 95 08/28/19 13:15 08/28/19 14:48 08/28/19 13:15 08/28/19 14:48 08/28/19 07:34 General appearance: Present: other (on Bipap) Results - Labs CBC & Chem 7: 08/26/19 04:36 08/29/19 05:23 Labs: Laboratory Last Values WBC 3.9 K/mm3 (4.5-11.0) L 08/26/19 04:36 RBC 2.35 M/mm3 (3.65-5.03) L 08/26/19 04:36 Hgb 7.8 gm/dl (11.8-15.2) L 08/26/19 04:36 Hct 23.5 % (35.5-45.6) L 08/26/19 04:36 MCV 100 fl (84-94) H 08/26/19 04:36 MCH 33 pg (28-32) H 08/26/19 04:36 MCHC 33 % (32-34) 08/26/19 04:36 RDW 16.6 % (13.2-15.2) H 08/26/19 04:36 Plt Count 223 K/mm3 (140-440) 08/26/19 04:36 Lymph % (Auto) 7.4 % (13.4-35.0) L 08/26/19 04:36 [place] % (Auto) 5.3 % (0.0-7.3) 08/26/19 04:36 Eos % (Auto) 1.8 % (0.0-4.3) 08/26/19 04:36 Baso % (Auto) 0.7 % (0.0-1.8) 08/26/19 04:36 Lymph # 0.3 K/mm3 (1.2-5.4) L 08/26/19 04:36 [place] # 0.2 K/mm3 (0.0-0.8) 08/26/19 04:36 Eos # 0.1 K/mm3 (0.0-0.4) 08/26/19 04:36 Baso # 0.0 K/mm3 (0.0-0.1) 08/26/19 04:36 Seg Neutrophils % 84.8 % (40.0-70.0) H 08/26/19 04:36 Seg Neutrophils # 3.3 K/mm3 (1.8-7.7) 08/26/19 04:36 PT 13.8 Sec. (12.2-14.9) 08/24/19 06:30 INR 1.07 (0.87-1.13) 08/24/19 06:30 APTT 27.8 Sec. (24.2-36.6) 08/24/19 06:30 Sodium 142 mmol/L (137-145) 08/28/19 06:43 Potassium 4.2 mmol/L (3.6-5.0) 08/28/19 06:43 Chloride 108.4 mmol/L (98-107) H 08/28/19 06:43 Carbon Dioxide 24 mmol/L (22-30) D 08/28/19 06:43 Anion Gap 14 mmol/L 08/28/19 06:43 BUN 39 mg/dL (9-20) H 08/28/19 06:43 Creatinine 4.3 mg/dL (0.8-1.5) H 08/28/19 06:43 Estimated GFR 17 ml/min 08/28/19 06:43 BUN/Creatinine Ratio 9 % 08/28/19 06:43 Glucose 137 mg/dL (75-100) H 08/28/19 06:43 Calcium 8.1 mg/dL (8.4-10.2) L 08/28/19 06:43 Phosphorus 5.00 mg/dL (2.5-4.5) H 08/26/19 04:36 Magnesium 1.50 mg/dL (1.7-2.3) L 08/24/19 06:30 Total Bilirubin < 0.20 mg/dL (0.1-1.2) 08/24/19 06:30 AST 25 units/L (5-40) 08/24/19 06:30 ALT 45 units/L (7-56) 08/24/19 06:30 Alkaline Phosphatase 165 units/L (35-129) H 08/24/19 06:30 Total Creatine Kinase 154 units/L (55-170) 08/24/19 06:30 Troponin T 0.031 ng/mL (0.00-0.029) H 08/24/19 06:30 Total Protein 6.5 g/dL (6.3-8.2) 08/24/19 06:30 Albumin 3.7 g/dL (3.9-5) L 08/24/19 06:30 Albumin/Globulin Ratio 1.3 % 08/24/19 06:30 Triglycerides 65 mg/dL (2-149) 08/24/19 06:30 Cholesterol 127 mg/dL (50-199) 08/24/19 06:30 LDL Cholesterol Direct 69 mg/dL (50-130) 08/24/19 06:30 HDL Cholesterol 53 mg/dL (40-59) 08/24/19 06:30 Cholesterol/HDL Ratio 2.39 % 08/24/19 06:30 Urine Color Yellow (Yellow) 08/24/19 Unknown Urine Turbidity Clear (Clear) 08/24/19 Unknown Urine pH 5.0 (5.0-7.0) 08/24/19 Unknown Ur Specific Story 1.014 (1.003-1.030) 08/24/19 Unknown Urine Protein >2000 mg dl mg/dL (Negative) 08/24/19 Unknown Urine Glucose (UA) 50 mg/dL (Negative) 08/24/19 Unknown Urine Ketones Neg mg/dL (Negative) 08/24/19 Unknown Urine Blood Sm (Negative) 08/24/19 Unknown Urine Nitrite Neg (Negative) 08/24/19 Unknown Urine Bilirubin Neg (Negative) 08/24/19 Unknown Urine Urobilinogen < 2.0 mg/dL (<2.0) 08/24/19 Unknown Ur Leukocyte Esterase Neg (Negative) 08/24/19 Unknown Urine WBC (Auto) 2.0 /HPF (0.0-6.0) 08/24/19 Unknown Urine RBC (Auto) 2.0 /HPF (0.0-6.0) 08/24/19 Unknown Urine Creatinine 65.7 mg/dL (0.1-20.0) H 08/25/19 22:10 Protein/Creatinin Ratio 1.31 08/25/19 22:10 Urine Sodium 81 mmol/L 08/25/19 22:10 Urine Total Protein 86 mg/dL (5-11.8) H 08/25/19 22:10 Hepatitis A IgM Ab Non-reactive (NonReactive) 08/26/19 10:12 Hep Bs Antigen Non-reactive (Negative) 08/26/19 10:12 Hep B Core IgM Ab Non-reactive (NonReactive) 08/26/19 10:12 Hepatitis C Antibody Non-reactive (NonReactive) 08/26/19 10:12 Active Medications - Current Medications Current Medications: Generic Name Dose Route Start Last Admin Trade Name Freq PRN Reason Stop Dose Admin Acetaminophen 650 mg 08/24/19 14:55 Tylenol PO Q4H PRN Pain MILD(1-3)/Fever >100.5/TORIBIO Acetaminophen/Hydrocodone Bitart 1 each 08/25/19 15:01 08/25/19 15:27 [place] 5/325 PO 1 each Q6H PRN Administration Pain, Moderate (4-6) Albuterol 2.5 mg 08/24/19 14:55 Proventil IH Q4HRT PRN Shortness Of Breath Aspirin 81 mg 08/25/19 10:00 08/28/19 10:15 Baby Aspirin PO Not Given QDAY [facility] Carvedilol 25 mg 08/24/19 10:00 08/28/19 10:15 Coreg PO Not Given BID [facility] Epoetin [place] 10,000 unit 08/28/19 13:00 Procrit SUB-Q EDIE [facility] Folic Acid 1 mg 08/24/19 13:00 08/28/19 10:15 Folvite PO Not Given QDAY [facility] Furosemide 40 mg 08/25/19 10:00 08/28/19 10:15 Lasix PO Not Given QDAY [facility] Heparin Sodium (Porcine) 5,000 unit 08/24/19 22:00 08/28/19 10:15 Heparin SUB-Q Not Given Q12HR [facility] Hydralazine HCl 50 mg 08/24/19 09:00 08/28/19 14:48 Apresoline PO 50 mg Q8HR [facility] Administration Hydralazine HCl 20 mg 08/24/19 15:17 Apresoline IV Q4HR PRN SBP>170 or DBP>110 Isosorbide Dinitrate 10 mg 08/26/19 12:00 08/28/19 10:15 Isordil Titradose PO Not Given BID [facility] Levetiracetam 750 mg 08/24/19 10:00 08/28/19 10:15 Keppra PO Not Given BID [facility] Morphine Sulfate 2 mg 08/24/19 14:55 08/28/19 09:12 Morphine IV 2 mg Q4H PRN Administration Pain, Moderate (4-6) Nifedipine 60 mg 08/24/19 13:00 08/28/19 10:16 Procardia Xl PO Not Given QDAY [facility] Ondansetron HCl 4 mg 08/24/19 14:55 08/25/19 15:27 Zofran IV 4 mg Q8H PRN Administration Nausea And Vomiting Pravastatin Sodium 20 mg 08/24/19 22:00 08/27/19 21:44 Pravachol PO 20 mg QHS [facility] Administration Sodium Chloride 10 ml 08/24/19 22:00 08/28/19 10:16 Sodium Chloride Flush Syringe 10 Ml IV Not Given BID WILL Sodium Chloride 10 ml 08/24/19 14:55 Sodium Chloride Flush Syringe 10 Ml IV PRN PRN LINE FLUSH Thiamine HCl 100 mg 08/24/19 13:00 08/28/19 10:16 Vitamin B-1 PO Not Given QDAY [facility] Zolpidem Tartrate 5 mg 08/27/19 23:42 08/28/19 00:20 Ambien PO 5 mg QHS PRN Administration Sleep
[2019-08-28] MEDS: PRAVASTATIN 20 MG TAB PO SCH (22:37)
[2019-08-29] MEDS: hydrALAZINE 25 MG TAB PO SCH ×3 (05:15→23:27)
[2019-08-29 06:21] LABS: Calcium 8.2 mg/dL (8.4-10.2)
[2019-08-29] MEDS: FOLIC ACID 1 MG TAB PO SCH (09:13)
[2019-08-29] MEDS: carvediloL 25 MG TAB PO SCH ×2 (09:13→23:26)
[2019-08-29] MEDS: ASPIRIN 81 MG TAB CHEW PO SCH (09:13)
[2019-08-29] MEDS: levETIRAcetam 500 MG TAB PO SCH ×2 (09:13→23:25)
[2019-08-29] MEDS: FUROSEMIDE 40 MG TAB PO SCH (09:13)
[2019-08-29] MEDS: ISOSORBIDE DINITRATE 10 MG TAB PO SCH ×2 (09:14→23:25)
[2019-08-29] MEDS: NIFEdipine XL 60 MG TAB PO SCH (09:14)
[2019-08-29] MEDS: THIAMINE 100 MG TAB PO SCH (09:14)
[2019-08-29] MEDS: HEPARIN 5,000 UNIT/1 ML VIAL SUB-Q SCH ×2 (09:14→23:28)
--- NOTE | 2019-08-29 12:30 | Progress Note ---
Assessment and Plan Acute on chronic systolic heart failure ESRD, now on HD Pulmonary Edema Left simple renal cyst Hypertension Metabolic Acidosis Anemia Prescription Non-compliance Plan: - S/p HD yesterday for UF and clearance, UF removed 2 liters - No acute indication for HD today - Assess need for HD on daily basis - Epogen dosing for anemia management - S/p Right IJ Perm catheter placement by Dr Murphy on 08/27/19 - On Lasix 40 mg po daily, adjust as needed - D/C Sodium Bicarbonate 650 mg po TID since initiated on HD - Consulted CM for outpatient dialysis placement at [facility] - Renally dose meds - Strict I&O - Renal plan d/w Dr Bettencourt Subjective Date of service: 08/29/19 Principal diagnosis: ESRD Interval history: Pt seen in bed, denies shortness of breath, states tolerating diet, no nausea or vomiting, no acute distress. No family at bedside Objective - Vital Signs Vital signs: Vital Signs - 12hr 08/29/19 08/29/19 08/29/19 03:45 05:15 08:00 Temperature 98.4 F 98.2 F Pulse Rate 69 69 68 Respiratory 18 18 Rate Blood Pressure 157/95 157/95 145/91 O2 Sat by Pulse 97 97 Oximetry 08/29/19 11:34 Temperature 98.2 F Pulse Rate 69 Respiratory 18 Rate Blood Pressure 128/88 O2 Sat by Pulse 95 Oximetry - General Appearance General appearance: well-developed EENT: ATNC Neck: no JVD Respiratory: Present: Decreased Breath Sounds Cardiology: regular, S1S2, other (ACCESS: Right IJ Perm Catheter intact) Gastrointestinal: normoactive bowel sounds, no tenderness Integumentary: warm and dry Neurologic: alert and oriented x3 Musculoskeletal: other (trace edema to BLE) Psychiatric: cooperative - Lab 08/26/19 04:36 08/29/19 05:23 Most recent lab results Calcium 8.2 mg/dL (8.4-10.2) L 08/29/19 05:23 Phosphorus 5.00 mg/dL (2.5-4.5) H 08/26/19 04:36 Magnesium 1.50 mg/dL (1.7-2.3) L 08/24/19 06:30 Urine Creatinine 65.7 mg/dL (0.1-20.0) H 08/25/19 22:10 Urine Sodium 81 mmol/L 08/25/19 22:10 Urine Total Protein 86 mg/dL (5-11.8) H 08/25/19 22:10 Medications & Allergies - Medications Allergies/Adverse Reactions: Allergies No Known Allergies Allergy (Verified 04/09/19 13:12) Home Medications: Home Medications Medication Instructions Recorded Confirmed Last Taken Type Aspirin [Aspirin BABY CHEW TAB] 81 mg PO QDAY #30 tab.chew 11/22/17 08/24/19 04/10/19 Rx amLODIPine 10 mg PO QDAY #30 tablet 04/14/19 08/24/19 Unknown Rx carvediloL [Coreg] 25 mg PO BID #60 tablet 04/14/19 08/24/19 Unknown Rx hydrALAZINE [Apresoline TAB] 50 mg PO Q8H #90 tablet 04/14/19 08/24/19 Unknown Rx Benzonatate [Tessalon Perles] 100 mg PO Q8HR #10 capsule 08/10/19 08/24/19 Unknown Rx Folic Acid [Folvite] 1 mg PO QDAY #30 tablet 08/10/19 08/24/19 Unknown Rx Furosemide [Lasix TAB] 40 mg PO QDAY #30 tablet 08/10/19 08/24/19 Unknown Rx NIFEdipine XL [Procardia Xl] 60 mg PO QDAY #30 tablet 08/10/19 08/24/19 Unknown Rx Pravastatin Sodium [Pravastatin] 20 mg PO QHS #60 tablet 08/10/19 08/24/19 Unknown Rx Thiamine [Vitamin B-1] 100 mg PO QDAY #30 tablet 08/10/19 08/24/19 Unknown Rx levETIRAcetam [Keppra TAB] 750 mg PO BID #60 tablet 08/10/19 08/24/19 Unknown Rx Active Medications: Generic Name Dose Route Start Last Admin Trade Name Freq PRN Reason Stop Dose Admin Acetaminophen 650 mg 08/24/19 14:55 Tylenol PO Q4H PRN Pain MILD(1-3)/Fever >100.5/TORIBIO Acetaminophen/Hydrocodone Bitart 1 each 08/25/19 15:01 08/25/19 15:27 [place] 5/325 PO 1 each Q6H PRN Administration Pain, Moderate (4-6) Albuterol 2.5 mg 08/24/19 14:55 Proventil IH Q4HRT PRN Shortness Of Breath Aspirin 81 mg 08/25/19 10:00 08/29/19 09:13 Baby Aspirin PO 81 mg QDAY [facility] Administration Carvedilol 25 mg 08/24/19 10:00 08/29/19 09:13 Coreg PO 25 mg BID [facility] Administration Epoetin [place] 10,000 unit 08/28/19 13:00 Procrit SUB-Q EDIE [facility] Folic Acid 1 mg 08/24/19 13:00 08/29/19 09:13 Folvite PO 1 mg QDAY [facility] Administration Furosemide 40 mg 08/25/19 10:00 08/29/19 09:13 Lasix PO 40 mg QDAY [facility] Administration Heparin Sodium (Porcine) 5,000 unit 08/24/19 22:00 08/29/19 09:14 Heparin SUB-Q 5,000 unit Q12HR [facility] Administration Hydralazine HCl 50 mg 08/24/19 09:00 08/29/19 05:15 Apresoline PO 50 mg Q8HR [facility] Administration Hydralazine HCl 20 mg 08/24/19 15:17 Apresoline IV Q4HR PRN SBP>170 or DBP>110 Isosorbide Dinitrate 10 mg 08/26/19 12:00 08/29/19 09:14 Isordil Titradose PO 10 mg BID [facility] Administration Levetiracetam 750 mg 08/24/19 10:00 08/29/19 09:13 Keppra PO 750 mg BID [facility] Administration Morphine Sulfate 2 mg 08/24/19 14:55 08/28/19 09:12 Morphine IV 2 mg Q4H PRN Administration Pain, Moderate (4-6) Nifedipine 60 mg 08/24/19 13:00 08/29/19 09:14 Procardia Xl PO 60 mg QDAY [facility] Administration Ondansetron HCl 4 mg 08/24/19 14:55 08/25/19 15:27 Zofran IV 4 mg Q8H PRN Administration Nausea And Vomiting Pravastatin Sodium 20 mg 08/24/19 22:00 08/28/19 22:37 Pravachol PO 20 mg QHS WILL Administration Sodium Chloride 10 ml 08/24/19 22:00 08/29/19 11:14 Sodium Chloride Flush Syringe 10 Ml IV Not Given BID [facility] Sodium Chloride 10 ml 08/24/19 14:55 Sodium Chloride Flush Syringe 10 Ml IV PRN PRN LINE FLUSH Thiamine HCl 100 mg 08/24/19 13:00 08/29/19 09:14 Vitamin B-1 PO 100 mg QDAY [facility] Administration Zolpidem Tartrate 5 mg 08/27/19 23:42 08/28/19 00:20 Ambien PO 5 mg QHS PRN Administration Sleep
[2019-08-29] MEDS ORDERED: SODIUM CHLORIDE 0.9% 100 ML IV PRN (13:22)
--- NOTE | 2019-08-29 17:24 | Progress Note ---
Assessment and Plan Assessment and plan: Patient is 58 yo with hypertension, chronic systolic CHF, [id number] disorder. He presents with shortness of breath and leg swelling. He denies chest pain. he was just discharged from here exactly 2 weeks ago on 08/10/19. he states he did not fill any of prescriptions including lasix. In ED, he was diagnosed with acute respiratory failure, was put on BIPAP. CXR revealed pulmonary edema, CHF exacerbation. He was given Lasix iv. Also BP was 196/127 so was started on nitroglycerin drip. BP improved, drip discontinued and he was admitted to Telemetry. Renal function remained poor, he was diagnosed with ESRD therefor dialysis catheter placed and he was started on dialysis 08/28. He will need outpatient hemodialysis arrangement. Acute respiratory failure due to CHF exacerbation Admitted to Tele Supplemental Oxygen off BIPAP Acute on chronic systolic CHF Lasix iv given in ED consulted Cardiology, following Patient states he has been non-compliant, did not fill prescriptions after discharge about 2 weeks ago Resume home meds ESRD had Acute on chronic kidney disease Consulted Nephrology, following Nephrology recommended initiating hemodialysis Started on hemodialysis 08/28 Will need outpatient hemodialysis Hypertensive emergency he was started on Nitro drip resume home meds and hopefully taper of Nitro drip medical non-compliance He states he did not fill any of prescriptions after discharge from here 2 weeks ago. I counseled him on importance of taking meds and following with Physician Seizure disorder resumed keppra seizure precautions Full code status History Interval history: feels better, Less shortness of breath No chest pain Started on dialysis Hospitalist Physical - Physical exam Narrative exam: Gen: Not in acute distress, lying in bed HEENT: Normocephalic, atraumatic Neck: supple, no JVD Heart: S1 and S2 reg, no murmurs, rubs or gallop Lungs: Clear to auscultation bilaterally, Abd: soft, non tender, non distended, normal BS, Ext: Bilateral edema of legs, no clubbing, no cyanosis Neuro: Awake, alert, oriented X 3, No focal neurological signs - Constitutional Vitals: Temp Pulse Resp BP Pulse Ox 98.4 F 77 18 125/71 95 08/29/19 15:55 08/29/19 15:55 08/29/19 15:55 08/29/19 15:55 08/29/19 15:55 General appearance: Present: other (on Bipap) Results - Labs CBC & Chem 7: 08/26/19 04:36 08/29/19 05:23 Labs: Laboratory Last Values WBC 3.9 K/mm3 (4.5-11.0) L 08/26/19 04:36 RBC 2.35 M/mm3 (3.65-5.03) L 08/26/19 04:36 Hgb 7.8 gm/dl (11.8-15.2) L 08/26/19 04:36 Hct 23.5 % (35.5-45.6) L 08/26/19 04:36 MCV 100 fl (84-94) H 08/26/19 04:36 MCH 33 pg (28-32) H 08/26/19 04:36 MCHC 33 % (32-34) 08/26/19 04:36 RDW 16.6 % (13.2-15.2) H 08/26/19 04:36 Plt Count 223 K/mm3 (140-440) 08/26/19 04:36 Lymph % (Auto) 7.4 % (13.4-35.0) L 08/26/19 04:36 [place] % (Auto) 5.3 % (0.0-7.3) 08/26/19 04:36 Eos % (Auto) 1.8 % (0.0-4.3) 08/26/19 04:36 Baso % (Auto) 0.7 % (0.0-1.8) 08/26/19 04:36 Lymph # 0.3 K/mm3 (1.2-5.4) L 08/26/19 04:36 [place] # 0.2 K/mm3 (0.0-0.8) 08/26/19 04:36 Eos # 0.1 K/mm3 (0.0-0.4) 08/26/19 04:36 Baso # 0.0 K/mm3 (0.0-0.1) 08/26/19 04:36 Seg Neutrophils % 84.8 % (40.0-70.0) H 08/26/19 04:36 Seg Neutrophils # 3.3 K/mm3 (1.8-7.7) 08/26/19 04:36 PT 13.8 Sec. (12.2-14.9) 08/24/19 06:30 INR 1.07 (0.87-1.13) 08/24/19 06:30 APTT 27.8 Sec. (24.2-36.6) 08/24/19 06:30 Sodium 143 mmol/L (137-145) 08/29/19 05:23 Potassium 4.4 mmol/L (3.6-5.0) 08/29/19 05:23 Chloride 107.1 mmol/L (98-107) H 08/29/19 05:23 Carbon Dioxide 25 mmol/L (22-30) 08/29/19 05:23 Anion Gap 15 mmol/L 08/29/19 05:23 BUN 27 mg/dL (9-20) H 08/29/19 05:23 Creatinine 3.6 mg/dL (0.8-1.5) H 08/29/19 05:23 Estimated GFR 21 ml/min 08/29/19 05:23 BUN/Creatinine Ratio 8 % 08/29/19 05:23 Glucose 87 mg/dL (75-100) 08/29/19 05:23 Calcium 8.2 mg/dL (8.4-10.2) L 08/29/19 05:23 Phosphorus 5.00 mg/dL (2.5-4.5) H 08/26/19 04:36 Magnesium 1.50 mg/dL (1.7-2.3) L 08/24/19 06:30 Total Bilirubin < 0.20 mg/dL (0.1-1.2) 08/24/19 06:30 AST 25 units/L (5-40) 08/24/19 06:30 ALT 45 units/L (7-56) 08/24/19 06:30 Alkaline Phosphatase 165 units/L (35-129) H 08/24/19 06:30 Total Creatine Kinase 154 units/L (55-170) 08/24/19 06:30 Troponin T 0.031 ng/mL (0.00-0.029) H 08/24/19 06:30 Total Protein 6.5 g/dL (6.3-8.2) 08/24/19 06:30 Albumin 3.7 g/dL (3.9-5) L 08/24/19 06:30 Albumin/Globulin Ratio 1.3 % 08/24/19 06:30 Triglycerides 65 mg/dL (2-149) 08/24/19 06:30 Cholesterol 127 mg/dL (50-199) 08/24/19 06:30 LDL Cholesterol Direct 69 mg/dL (50-130) 08/24/19 06:30 HDL Cholesterol 53 mg/dL (40-59) 08/24/19 06:30 Cholesterol/HDL Ratio 2.39 % 08/24/19 06:30 Urine Color Yellow (Yellow) 08/24/19 Unknown Urine Turbidity Clear (Clear) 08/24/19 Unknown Urine pH 5.0 (5.0-7.0) 08/24/19 Unknown Ur Specific [place] 1.014 (1.003-1.030) 08/24/19 Unknown Urine Protein >2000 mg dl mg/dL (Negative) 08/24/19 Unknown Urine Glucose (UA) 50 mg/dL (Negative) 08/24/19 Unknown Urine Ketones Neg mg/dL (Negative) 08/24/19 Unknown Urine Blood Sm (Negative) 08/24/19 Unknown Urine Nitrite Neg (Negative) 08/24/19 Unknown Urine Bilirubin Neg (Negative) 08/24/19 Unknown Urine Urobilinogen < 2.0 mg/dL (<2.0) 08/24/19 Unknown Ur Leukocyte Esterase Neg (Negative) 08/24/19 Unknown Urine WBC (Auto) 2.0 /HPF (0.0-6.0) 08/24/19 Unknown Urine RBC (Auto) 2.0 /HPF (0.0-6.0) 08/24/19 Unknown Urine Creatinine 65.7 mg/dL (0.1-20.0) H 08/25/19 22:10 Protein/Creatinin Ratio 1.31 08/25/19 22:10 Urine Sodium 81 mmol/L 08/25/19 22:10 Urine Total Protein 86 mg/dL (5-11.8) H 08/25/19 22:10 Hepatitis A IgM Ab Non-reactive (NonReactive) 08/26/19 10:12 Hep Bs Antigen Non-reactive (Negative) 08/26/19 10:12 Hep B Core IgM Ab Non-reactive (NonReactive) 08/26/19 10:12 Hepatitis C Antibody Non-reactive (NonReactive) 08/26/19 10:12 Active Medications - Current Medications Current Medications: Generic Name Dose Route Start Last Admin Trade Name Freq PRN Reason Stop Dose Admin Acetaminophen 650 mg 08/24/19 14:55 Tylenol PO Q4H PRN Pain MILD(1-3)/Fever >100.5/TORIBIO Acetaminophen/Hydrocodone Bitart 1 each 08/25/19 15:01 08/25/19 15:27 [place] 5/325 PO 1 each Q6H PRN Administration Pain, Moderate (4-6) Albuterol 2.5 mg 08/24/19 14:55 Proventil IH Q4HRT PRN Shortness Of Breath Aspirin 81 mg 08/25/19 10:00 08/29/19 09:13 Baby Aspirin PO 81 mg QDAY WILL Administration Carvedilol 25 mg 08/24/19 10:00 08/29/19 09:13 Coreg PO 25 mg BID WILL Administration Epoetin Leandro 10,000 unit 08/28/19 13:00 Procrit SUB-Q EDIE WILL Folic Acid 1 mg 08/24/19 13:00 08/29/19 09:13 Folvite PO 1 mg QDAY WILL Administration Furosemide 40 mg 08/25/19 10:00 08/29/19 09:13 Lasix PO 40 mg QDAY WILL Administration Heparin Sodium (Porcine) 5,000 unit 08/24/19 22:00 08/29/19 09:14 Heparin SUB-Q 5,000 unit Q12HR WILL Administration Hydralazine HCl 50 mg 08/24/19 09:00 08/29/19 13:12 Apresoline PO 50 mg Q8HR WILL Administration Hydralazine HCl 20 mg 08/24/19 15:17 Apresoline IV Q4HR PRN SBP>170 or DBP>110 Sodium Chloride 100 mls @ 999 mls/hr 08/29/19 13:22 Nacl 0.9% IV EDIE PRN Hypotension Isosorbide Dinitrate 10 mg 08/26/19 12:00 08/29/19 09:14 Isordil Titradose PO 10 mg BID WILL Administration Levetiracetam 750 mg 08/24/19 10:00 08/29/19 09:13 Keppra PO 750 mg BID WILL Administration Morphine Sulfate 2 mg 08/24/19 14:55 08/28/19 09:12 Morphine IV 2 mg Q4H PRN Administration Pain, Moderate (4-6) Nifedipine 60 mg 08/24/19 13:00 08/29/19 09:14 Procardia Xl PO 60 mg QDAY WILL Administration Ondansetron HCl 4 mg 08/24/19 14:55 08/25/19 15:27 Zofran IV 4 mg Q8H PRN Administration Nausea And Vomiting Pravastatin Sodium 20 mg 08/24/19 22:00 08/28/19 22:37 Pravachol PO 20 mg QHS WILL Administration Sodium Chloride 10 ml 08/24/19 22:00 08/29/19 11:14 Sodium Chloride Flush Syringe 10 Ml IV Not Given BID WILL Sodium Chloride 10 ml 08/24/19 14:55 Sodium Chloride Flush Syringe 10 Ml IV PRN PRN LINE FLUSH Thiamine HCl 100 mg 08/24/19 13:00 08/29/19 09:14 Vitamin B-1 PO 100 mg QDAY WILL Administration Zolpidem Tartrate 5 mg 08/27/19 23:42 08/28/19 00:20 Ambien PO 5 mg QHS PRN Administration Sleep
[2019-08-29] MEDS: PRAVASTATIN 20 MG TAB PO SCH (23:26)
[2019-08-29] MEDS: ZOLPIDEM 5 MG TAB PO PRN (23:27)
[2019-08-29] MEDS: HYDROcodone/ACETAMINOPHEN 5-325 MG TAB PO PRN (23:35)
[2019-08-30] MEDS: hydrALAZINE 25 MG TAB PO SCH ×3 (06:15→21:31)
[2019-08-30 08:38] LABS: Calcium 8.9 mg/dL (8.4-10.2)
[2019-08-30] MEDS: NIFEdipine XL 60 MG TAB PO SCH (10:39)
[2019-08-30] MEDS: levETIRAcetam 500 MG TAB PO SCH ×2 (10:39→21:31)
[2019-08-30] MEDS: THIAMINE 100 MG TAB PO SCH (10:41)
[2019-08-30] MEDS: FOLIC ACID 1 MG TAB PO SCH (10:41)
[2019-08-30] MEDS: carvediloL 25 MG TAB PO SCH ×2 (10:42→21:30)
[2019-08-30] MEDS: FUROSEMIDE 40 MG TAB PO SCH (10:42)
[2019-08-30] MEDS: HEPARIN 5,000 UNIT/1 ML VIAL SUB-Q SCH ×2 (10:43→21:31)
[2019-08-30] MEDS: ISOSORBIDE DINITRATE 10 MG TAB PO SCH ×2 (10:43→21:31)
[2019-08-30] MEDS: HYDROcodone/ACETAMINOPHEN 5-325 MG TAB PO PRN (10:46)
[2019-08-30] MEDS: ASPIRIN 81 MG TAB CHEW PO SCH (10:51)
--- NOTE | 2019-08-30 12:31 | Progress Note ---
Assessment and Plan Acute on chronic systolic heart failure ESRD, now on HD Pulmonary Edema Left simple renal cyst Hypertension Metabolic Acidosis Anemia Prescription Non-compliance Plan: - No acute indication for HD today - HD tomorrow ordered - Assess need for HD on daily basis - Epogen dosing for anemia management - S/p Right IJ Perm catheter placement by Dr Murphy on 08/27/19 - On Lasix 40 mg po daily, adjust as needed - D/C Sodium Bicarbonate 650 mg po TID since initiated on HD - Consulted CM for outpatient dialysis placement at [facility] in [place], [place] to be discharged from renal standpoint once secured - Renally dose meds - Strict I&O Subjective Date of service: 08/30/19 Principal diagnosis: ESRD Interval history: tolerating HD, denies acute issues Objective - Vital Signs Vital signs: Vital Signs - 12hr 08/30/19 08/30/19 08/30/19 03:38 06:15 08:22 Temperature 98.2 F 97.6 F Pulse Rate 65 65 67 Respiratory 19 18 Rate Blood Pressure 121/70 121/70 139/90 O2 Sat by Pulse 96 97 Oximetry 08/30/19 10:46 Temperature Pulse Rate Respiratory 20 Rate Blood Pressure O2 Sat by Pulse Oximetry - General Appearance General appearance: well-developed, well-nourished, appears stated age EENT: ATNC, PERRL, mucous membranes moist Neck: no carotid bruit Respiratory: Present: Clear to Ascultation. Absent: Rales Cardiology: regular, S1S2 Gastrointestinal: normoactive bowel sounds, no tenderness, no distended Integumentary: no rash, warm and dry Neurologic: no focal deficit, no asterixis, alert and oriented x3 Musculoskeletal: warmth (edema in BLE) Psychiatric: mood/affect appropriate, cooperative - Lab 08/26/19 04:36 08/30/19 07:21 Most recent lab results Calcium 8.9 mg/dL (8.4-10.2) 08/30/19 07:21 Phosphorus 5.00 mg/dL (2.5-4.5) H 08/26/19 04:36 Magnesium 1.50 mg/dL (1.7-2.3) L 08/24/19 06:30 Urine Creatinine 65.7 mg/dL (0.1-20.0) H 08/25/19 22:10 Urine Sodium 81 mmol/L 08/25/19 22:10 Urine Total Protein 86 mg/dL (5-11.8) H 08/25/19 22:10 Medications & Allergies - Medications Allergies/Adverse Reactions: Allergies No Known Allergies Allergy (Verified 04/09/19 13:12) Home Medications: Home Medications Medication Instructions Recorded Confirmed Last Taken Type Aspirin [Aspirin BABY CHEW TAB] 81 mg PO QDAY #30 tab.chew 11/22/17 08/24/19 04/10/19 Rx amLODIPine 10 mg PO QDAY #30 tablet 04/14/19 08/24/19 Unknown Rx carvediloL [Coreg] 25 mg PO BID #60 tablet 04/14/19 08/24/19 Unknown Rx hydrALAZINE [Apresoline TAB] 50 mg PO Q8H #90 tablet 04/14/19 08/24/19 Unknown Rx Benzonatate [Tessalon Perles] 100 mg PO Q8HR #10 capsule 08/10/19 08/24/19 Unknown Rx Folic Acid [Folvite] 1 mg PO QDAY #30 tablet 08/10/19 08/24/19 Unknown Rx Furosemide [Lasix TAB] 40 mg PO QDAY #30 tablet 08/10/19 08/24/19 Unknown Rx NIFEdipine XL [Procardia Xl] 60 mg PO QDAY #30 tablet 08/10/19 08/24/19 Unknown Rx Pravastatin Sodium [Pravastatin] 20 mg PO QHS #60 tablet 08/10/19 08/24/19 Unknown Rx Thiamine [Vitamin B-1] 100 mg PO QDAY #30 tablet 08/10/19 08/24/19 Unknown Rx levETIRAcetam [Keppra TAB] 750 mg PO BID #60 tablet 08/10/19 08/24/19 Unknown Rx Active Medications: Generic Name Dose Route Start Last Admin Trade Name Freq PRN Reason Stop Dose Admin Acetaminophen 650 mg 08/24/19 14:55 Tylenol PO Q4H PRN Pain MILD(1-3)/Fever >100.5/TORIBIO Acetaminophen/Hydrocodone Bitart 1 each 08/25/19 15:01 08/30/19 10:46 [place] 5/325 PO 1 each Q6H PRN Administration Pain, Moderate (4-6) Albuterol 2.5 mg 08/24/19 14:55 Proventil IH Q4HRT PRN Shortness Of Breath Aspirin 81 mg 08/25/19 10:00 08/29/19 09:13 Baby Aspirin PO 81 mg QDAY WILL Administration Carvedilol 25 mg 08/24/19 10:00 08/30/19 10:42 Coreg PO 25 mg BID WILL Administration Epoetin Leandro 10,000 unit 08/28/19 13:00 Procrit SUB-Q EDIE WILL Folic Acid 1 mg 08/24/19 13:00 08/30/19 10:41 Folvite PO 1 mg QDAY WILL Administration Furosemide 40 mg 08/25/19 10:00 08/30/19 10:42 Lasix PO 40 mg QDAY WILL Administration Heparin Sodium (Porcine) 5,000 unit 08/24/19 22:00 08/30/19 10:43 Heparin SUB-Q 5,000 unit Q12HR WILL Administration Hydralazine HCl 50 mg 08/24/19 09:00 08/30/19 06:15 Apresoline PO 50 mg Q8HR WILL Administration Hydralazine HCl 20 mg 08/24/19 15:17 Apresoline IV Q4HR PRN SBP>170 or DBP>110 Sodium Chloride 100 mls @ 999 mls/hr 08/29/19 13:22 Nacl 0.9% IV EDIE PRN Hypotension Isosorbide Dinitrate 10 mg 08/26/19 12:00 08/30/19 10:43 Isordil Titradose PO 10 mg BID WILL Administration Levetiracetam 750 mg 08/24/19 10:00 08/30/19 10:39 Keppra PO 750 mg BID WILL Administration Morphine Sulfate 2 mg 08/24/19 14:55 08/28/19 09:12 Morphine IV 2 mg Q4H PRN Administration Pain, Moderate (4-6) Nifedipine 60 mg 08/24/19 13:00 08/30/19 10:39 Procardia Xl PO 60 mg QDAY WILL Administration Ondansetron HCl 4 mg 08/24/19 14:55 08/25/19 15:27 Zofran IV 4 mg Q8H PRN Administration Nausea And Vomiting Pravastatin Sodium 20 mg 08/24/19 22:00 08/29/19 23:26 Pravachol PO 20 mg QHS WILL Administration Sodium Chloride 10 ml 08/24/19 22:00 08/30/19 10:38 Sodium Chloride Flush Syringe 10 Ml IV 10 ml BID WILL Administration Sodium Chloride 10 ml 08/24/19 14:55 Sodium Chloride Flush Syringe 10 Ml IV PRN PRN LINE FLUSH Thiamine HCl 100 mg 08/24/19 13:00 08/30/19 10:41 Vitamin B-1 PO 100 mg QDAY WILL Administration Zolpidem Tartrate 5 mg 08/27/19 23:42 08/29/19 23:27 Ambien PO 5 mg QHS PRN Administration Sleep
--- NOTE | 2019-08-30 14:25 | Progress Note ---
Assessment and Plan Chronic systolic heart failure Severe renal failure -initiated on dialysis Acute respiratory failure -resolved Non-Ischemic cardiomyopathy EF 20-25% by echo 07/2019. no ischemia by MPI 12/2016. Anemia Htn Seizure disorder Hx of Tobacco and cocaine abuse Noncompliance with medical therapy and outpatient follow up. Recommend: Sodium/fluid restriction. Continue medical therapy for chronic systolic heart failure and nonischemic cardiomyopathy. We will follow intermittently. Subjective Date of service: 08/30/19 Principal diagnosis: ESRD Interval history: Patient is resting in bed and appears comfortable. He has no complaints. Awaits arrangement for outpatient dialysis chair. Objective Vital Signs Temp Pulse Resp BP Pulse Ox 08/30/19 12:13 98.6 F 71 18 138/88 96 08/30/19 10:46 20 08/30/19 08:22 97.6 F 67 18 139/90 97 08/30/19 06:15 65 121/70 08/30/19 03:38 98.2 F 65 19 121/70 96 08/29/19 23:37 97.8 F 64 17 139/96 94 08/29/19 23:27 75 147/90 08/29/19 23:26 75 147/90 08/29/19 23:25 75 147/90 08/29/19 20:51 74 08/29/19 19:39 98.6 F 75 18 147/90 97 08/29/19 15:55 98.4 F 77 18 125/71 95 - Physical Examination General: No Apparent Distress HEENT: Positive: PERRL Neck: Positive: trachea midline Cardiac: Positive: Reg Rate and Rhythm Lungs: Positive: Decreased Breath Sounds Neuro: Positive: Grossly Intact Extremities: Absent: edema - Labs and Meds Comprehensive Metabolic Panel 08/30/19 Range/Units 07:21 Sodium 142 (137-145) mmol/L Potassium 4.7 (3.6-5.0) mmol/L Chloride 105.6 (98-107) mmol/L Carbon Dioxide 22 (22-30) mmol/L BUN 36 H (9-20) mg/dL Creatinine 4.5 H (0.8-1.5) mg/dL Glucose 86 (75-100) mg/dL Calcium 8.9 (8.4-10.2) mg/dL
--- NOTE | 2019-08-30 14:51 | Progress Note ---
Assessment and Plan Assessment and plan: Acute respiratory failure due to CHF exacerbation Cont. Supplemental Oxygen Currentlyoff BIPAP Acute on chronic systolic CHF Lasix iv given in ED consulted Cardiology, following Patient states he has been non-compliant, did not fill prescriptions after discharge about 2 weeks ago ESRD Previously with Acute on chronic kidney disease Consulted Nephrology, following Nephrology recommended initiating hemodialysis Started on hemodialysis 08/28 Will need outpatient hemodialysis No acute indication for HD today HD tomorrow ordered Assess need for HD on daily basis Epogen dosing for anemia management S/p Right IJ Perm catheter placement by Dr Murphy on 08/27/19 Consulted CM for outpatient dialysis placement at [facility] in [place], [place] to be discharged from renal standpoint once secured Hypertensive emergency he was started on Nitro drip resume home meds and hopefully taper of Nitro drip medical non-compliance He states he did not fill any of prescriptions after discharge from here 2 weeks ago. I counseled him on importance of taking meds and following with Physician Seizure disorder resumed keppra seizure precautions Full code status History Interval history: Patient is 58 yo with hypertension, chronic systolic CHF, [id number] disorder. He presents with shortness of breath and leg swelling. He denies chest pain. he was just discharged from here exactly 2 weeks ago on 08/10/19. he states he did not fill any of prescriptions including lasix. In ED, he was diagnosed with acute respiratory failure, was put on BIPAP. CXR revealed pulmonary edema, CHF exacerbation. He was given Lasix iv. Also BP was 196/127 so was started on nitroglycerin drip. BP improved, drip discontinued and he was admitted to Telemetry. Renal function remained poor, he was diagnosed with ESRD therefor dialysis catheter placed and he was started on dialysis 08/28. He will need outpatient hemodialysis arrangement. Hospitalist Physical - Constitutional Vitals: Temp Pulse Resp BP Pulse Ox 98.6 F 71 18 138/88 96 08/30/19 12:13 08/30/19 12:13 08/30/19 12:13 08/30/19 12:13 08/30/19 12:13 General appearance: Present: other (on Bipap) - EENT Eyes: Present: PERRL, EOM intact ENT: hearing intact, clear oral mucosa, dentition normal - Neck Neck: Present: supple, normal ROM - Respiratory Respiratory effort: normal Respiratory: bilateral: CTA - Cardiovascular Rhythm: regular Heart Sounds: Present: S1 & S2. Absent: gallop, rub - Extremities Extremities: no ischemia, No edema, Full ROM - Abdominal General gastrointestinal: soft, non-tender, non-distended, normal bowel sounds - Integumentary Integumentary: Present: clear, warm, dry - Neurologic Neurologic: CNII-XII intact, moves all extremities Results - Labs CBC & Chem 7: 08/26/19 04:36 08/30/19 07:21 Labs: Laboratory Last Values WBC 3.9 K/mm3 (4.5-11.0) L 08/26/19 04:36 RBC 2.35 M/mm3 (3.65-5.03) L 08/26/19 04:36 Hgb 7.8 gm/dl (11.8-15.2) L 08/26/19 04:36 Hct 23.5 % (35.5-45.6) L 08/26/19 04:36 MCV 100 fl (84-94) H 08/26/19 04:36 MCH 33 pg (28-32) H 08/26/19 04:36 MCHC 33 % (32-34) 08/26/19 04:36 RDW 16.6 % (13.2-15.2) H 08/26/19 04:36 Plt Count 223 K/mm3 (140-440) 08/26/19 04:36 Lymph % (Auto) 7.4 % (13.4-35.0) L 08/26/19 04:36 [place] % (Auto) 5.3 % (0.0-7.3) 08/26/19 04:36 Eos % (Auto) 1.8 % (0.0-4.3) 08/26/19 04:36 Baso % (Auto) 0.7 % (0.0-1.8) 08/26/19 04:36 Lymph # 0.3 K/mm3 (1.2-5.4) L 08/26/19 04:36 [place] # 0.2 K/mm3 (0.0-0.8) 08/26/19 04:36 Eos # 0.1 K/mm3 (0.0-0.4) 08/26/19 04:36 Baso # 0.0 K/mm3 (0.0-0.1) 08/26/19 04:36 Seg Neutrophils % 84.8 % (40.0-70.0) H 08/26/19 04:36 Seg Neutrophils # 3.3 K/mm3 (1.8-7.7) 08/26/19 04:36 PT 13.8 Sec. (12.2-14.9) 08/24/19 06:30 INR 1.07 (0.87-1.13) 08/24/19 06:30 APTT 27.8 Sec. (24.2-36.6) 08/24/19 06:30 Sodium 142 mmol/L (137-145) 08/30/19 07:21 Potassium 4.7 mmol/L (3.6-5.0) 08/30/19 07:21 Chloride 105.6 mmol/L (98-107) 08/30/19 07:21 Carbon Dioxide 22 mmol/L (22-30) 08/30/19 07:21 Anion Gap 19 mmol/L 08/30/19 07:21 BUN 36 mg/dL (9-20) H 08/30/19 07:21 Creatinine 4.5 mg/dL (0.8-1.5) H 08/30/19 07:21 Estimated GFR 16 ml/min 08/30/19 07:21 BUN/Creatinine Ratio 8 % 08/30/19 07:21 Glucose 86 mg/dL (75-100) 08/30/19 07:21 Calcium 8.9 mg/dL (8.4-10.2) 08/30/19 07:21 Phosphorus 5.00 mg/dL (2.5-4.5) H 08/26/19 04:36 Magnesium 1.50 mg/dL (1.7-2.3) L 08/24/19 06:30 Total Bilirubin < 0.20 mg/dL (0.1-1.2) 08/24/19 06:30 AST 25 units/L (5-40) 08/24/19 06:30 ALT 45 units/L (7-56) 08/24/19 06:30 Alkaline Phosphatase 165 units/L (35-129) H 08/24/19 06:30 Total Creatine Kinase 154 units/L (55-170) 08/24/19 06:30 Troponin T 0.031 ng/mL (0.00-0.029) H 08/24/19 06:30 Total Protein 6.5 g/dL (6.3-8.2) 08/24/19 06:30 Albumin 3.7 g/dL (3.9-5) L 08/24/19 06:30 Albumin/Globulin Ratio 1.3 % 08/24/19 06:30 Triglycerides 65 mg/dL (2-149) 08/24/19 06:30 Cholesterol 127 mg/dL (50-199) 08/24/19 06:30 LDL Cholesterol Direct 69 mg/dL (50-130) 08/24/19 06:30 HDL Cholesterol 53 mg/dL (40-59) 08/24/19 06:30 Cholesterol/HDL Ratio 2.39 % 08/24/19 06:30 Urine Color Yellow (Yellow) 08/24/19 Unknown Urine Turbidity Clear (Clear) 08/24/19 Unknown Urine pH 5.0 (5.0-7.0) 08/24/19 Unknown Ur Specific [place] 1.014 (1.003-1.030) 08/24/19 Unknown Urine Protein >2000 mg dl mg/dL (Negative) 08/24/19 Unknown Urine Glucose (UA) 50 mg/dL (Negative) 08/24/19 Unknown Urine Ketones Neg mg/dL (Negative) 08/24/19 Unknown Urine Blood Sm (Negative) 08/24/19 Unknown Urine Nitrite Neg (Negative) 08/24/19 Unknown Urine Bilirubin Neg (Negative) 08/24/19 Unknown Urine Urobilinogen < 2.0 mg/dL (<2.0) 08/24/19 Unknown Ur Leukocyte Esterase Neg (Negative) 08/24/19 Unknown Urine WBC (Auto) 2.0 /HPF (0.0-6.0) 08/24/19 Unknown Urine RBC (Auto) 2.0 /HPF (0.0-6.0) 08/24/19 Unknown Urine Creatinine 65.7 mg/dL (0.1-20.0) H 08/25/19 22:10 Protein/Creatinin Ratio 1.31 08/25/19 22:10 Urine Sodium 81 mmol/L 08/25/19 22:10 Urine Total Protein 86 mg/dL (5-11.8) H 08/25/19 22:10 Hepatitis A IgM Ab Non-reactive (NonReactive) 08/26/19 10:12 Hep Bs Antigen Non-reactive (Negative) 08/26/19 10:12 Hep B Core IgM Ab Non-reactive (NonReactive) 08/26/19 10:12 Hepatitis C Antibody Non-reactive (NonReactive) 08/26/19 10:12 Active Medications - Current Medications Current Medications: Generic Name Dose Route Start Last Admin Trade Name Freq PRN Reason Stop Dose Admin Acetaminophen 650 mg 08/24/19 14:55 Tylenol PO Q4H PRN Pain MILD(1-3)/Fever >100.5/TORIBIO Acetaminophen/Hydrocodone Bitart 1 each 08/25/19 15:01 08/30/19 10:46 [place] 5/325 PO 1 each Q6H PRN Administration Pain, Moderate (4-6) Albuterol 2.5 mg 08/24/19 14:55 Proventil IH Q4HRT PRN Shortness Of Breath Aspirin 81 mg 08/25/19 10:00 08/29/19 09:13 Baby Aspirin PO 81 mg QDAY WILL Administration Carvedilol 25 mg 08/24/19 10:00 08/30/19 10:42 Coreg PO 25 mg BID WILL Administration Epoetin [place] 10,000 unit 08/28/19 13:00 Procrit SUB-Q EDIE WILL Folic Acid 1 mg 08/24/19 13:00 08/30/19 10:41 Folvite PO 1 mg QDAY WILL Administration Furosemide 40 mg 08/25/19 10:00 08/30/19 10:42 Lasix PO 40 mg QDAY WILL Administration Heparin Sodium (Porcine) 5,000 unit 08/24/19 22:00 08/30/19 10:43 Heparin SUB-Q 5,000 unit Q12HR WILL Administration Hydralazine HCl 50 mg 08/24/19 09:00 08/30/19 06:15 Apresoline PO 50 mg Q8HR WILL Administration Hydralazine HCl 20 mg 08/24/19 15:17 Apresoline IV Q4HR PRN SBP>170 or DBP>110 Sodium Chloride 100 mls @ 999 mls/hr 08/29/19 13:22 Nacl 0.9% IV EDIE PRN Hypotension Isosorbide Dinitrate 10 mg 08/26/19 12:00 08/30/19 10:43 Isordil Titradose PO 10 mg BID WILL Administration Levetiracetam 750 mg 08/24/19 10:00 08/30/19 10:39 Keppra PO 750 mg BID WILL Administration Morphine Sulfate 2 mg 08/24/19 14:55 08/28/19 09:12 Morphine IV 2 mg Q4H PRN Administration Pain, Moderate (4-6) Nifedipine 60 mg 08/24/19 13:00 08/30/19 10:39 Procardia Xl PO 60 mg QDAY WILL Administration Ondansetron HCl 4 mg 08/24/19 14:55 08/25/19 15:27 Zofran IV 4 mg Q8H PRN Administration Nausea And Vomiting Pravastatin Sodium 20 mg 08/24/19 22:00 08/29/19 23:26 Pravachol PO 20 mg QHS WILL Administration Sodium Chloride 10 ml 08/24/19 22:00 08/30/19 10:38 Sodium Chloride Flush Syringe 10 Ml IV 10 ml BID WILL Administration Sodium Chloride 10 ml 08/24/19 14:55 Sodium Chloride Flush Syringe 10 Ml IV PRN PRN LINE FLUSH Thiamine HCl 100 mg 08/24/19 13:00 08/30/19 10:41 Vitamin B-1 PO 100 mg QDAY WILL Administration Zolpidem Tartrate 5 mg 08/27/19 23:42 08/29/19 23:27 Ambien PO 5 mg QHS PRN Administration Sleep
[2019-08-30] MEDS: PRAVASTATIN 20 MG TAB PO SCH (21:30)
[2019-08-30] MEDS: ZOLPIDEM 5 MG TAB PO PRN (21:35)
[2019-08-31] MEDS: hydrALAZINE 25 MG TAB PO SCH ×3 (05:41→21:54)
[2019-08-31 08:44] LABS: Calcium 8.6 mg/dL (8.4-10.2)
--- NOTE | 2019-08-31 11:41 | Progress Note ---
Assessment and Plan Acute on chronic systolic heart failure ESRD, now on HD Pulmonary Edema Left simple renal cyst Hypertension Metabolic Acidosis Anemia Prescription Non-compliance Plan: - HD today for clearance and gentle UF - Assess need for HD on daily basis - Epogen dosing for anemia management - S/p Right IJ Perm catheter placement by Dr Murphy on 08/27/19 - On Lasix 40 mg po daily, adjust as needed - Consulted CM for outpatient dialysis placement at [facility] in [place], [place] to be discharged from renal standpoint once secured - Renally dose meds - Strict I&O Subjective Date of service: 08/31/19 Principal diagnosis: ESRD Interval history: was in dialysis this AM Objective - Vital Signs Vital signs: Vital Signs - 12hr 08/30/19 08/31/19 08/31/19 23:55 03:59 05:41 Temperature 98.7 F 98.4 F Pulse Rate 72 64 64 Respiratory 18 16 Rate Blood Pressure 119/80 141/86 141/86 O2 Sat by Pulse 96 94 Oximetry O2 Sat by Pulse Oximetry [ Anterior Bilateral Throughout] 08/31/19 08/31/19 10:08 10:22 Temperature 98.2 F Pulse Rate 71 69 Respiratory 16 Rate Blood Pressure 143/87 127/81 O2 Sat by Pulse Oximetry O2 Sat by Pulse 97 Oximetry [ Anterior Bilateral Throughout] - Lab 08/26/19 04:36 08/31/19 08:00 Most recent lab results Calcium 8.6 mg/dL (8.4-10.2) 08/31/19 08:00 Phosphorus 5.00 mg/dL (2.5-4.5) H 08/26/19 04:36 Magnesium 1.50 mg/dL (1.7-2.3) L 08/24/19 06:30 Urine Creatinine 65.7 mg/dL (0.1-20.0) H 08/25/19 22:10 Urine Sodium 81 mmol/L 08/25/19 22:10 Urine Total Protein 86 mg/dL (5-11.8) H 08/25/19 22:10 Medications & Allergies - Medications Allergies/Adverse Reactions: Allergies No Known Allergies Allergy (Verified 04/09/19 13:12) Home Medications: Home Medications Medication Instructions Recorded Confirmed Last Taken Type Aspirin [Aspirin BABY CHEW TAB] 81 mg PO QDAY #30 tab.chew 11/22/17 08/24/19 04/10/19 Rx amLODIPine 10 mg PO QDAY #30 tablet 04/14/19 08/24/19 Unknown Rx carvediloL [Coreg] 25 mg PO BID #60 tablet 04/14/19 08/24/19 Unknown Rx hydrALAZINE [Apresoline TAB] 50 mg PO Q8H #90 tablet 04/14/19 08/24/19 Unknown Rx Benzonatate [Tessalon Perles] 100 mg PO Q8HR #10 capsule 08/10/19 08/24/19 Unknown Rx Folic Acid [Folvite] 1 mg PO QDAY #30 tablet 08/10/19 08/24/19 Unknown Rx Furosemide [Lasix TAB] 40 mg PO QDAY #30 tablet 08/10/19 08/24/19 Unknown Rx NIFEdipine XL [Procardia Xl] 60 mg PO QDAY #30 tablet 08/10/19 08/24/19 Unknown Rx Pravastatin Sodium [Pravastatin] 20 mg PO QHS #60 tablet 08/10/19 08/24/19 Unknown Rx Thiamine [Vitamin B-1] 100 mg PO QDAY #30 tablet 08/10/19 08/24/19 Unknown Rx levETIRAcetam [Keppra TAB] 750 mg PO BID #60 tablet 08/10/19 08/24/19 Unknown Rx Active Medications: Generic Name Dose Route Start Last Admin Trade Name Freq PRN Reason Stop Dose Admin Acetaminophen 650 mg 08/24/19 14:55 Tylenol PO Q4H PRN Pain MILD(1-3)/Fever >100.5/TORIBIO Acetaminophen/Hydrocodone Bitart 1 each 08/25/19 15:01 08/30/19 10:46 [place] 5/325 PO 1 each Q6H PRN Administration Pain, Moderate (4-6) Albuterol 2.5 mg 08/24/19 14:55 Proventil IH Q4HRT PRN Shortness Of Breath Aspirin 81 mg 08/25/19 10:00 08/30/19 10:51 Baby Aspirin PO 81 mg QDAY WILL Administration Carvedilol 25 mg 08/24/19 10:00 08/30/19 21:30 Coreg PO 25 mg BID WILL Administration Epoetin Leandro 10,000 unit 08/28/19 13:00 Procrit SUB-Q EDIE WILL Folic Acid 1 mg 08/24/19 13:00 08/30/19 10:41 Folvite PO 1 mg QDAY WILL Administration Furosemide 40 mg 08/25/19 10:00 08/30/19 10:42 Lasix PO 40 mg QDAY WILL Administration Heparin Sodium (Porcine) 5,000 unit 08/24/19 22:00 08/30/19 21:31 Heparin SUB-Q 5,000 unit Q12HR WILL Administration Hydralazine HCl 50 mg 08/24/19 09:00 08/31/19 05:41 Apresoline PO 50 mg Q8HR WILL Administration Hydralazine HCl 20 mg 08/24/19 15:17 Apresoline IV Q4HR PRN SBP>170 or DBP>110 Sodium Chloride 100 mls @ 999 mls/hr 08/29/19 13:22 Nacl 0.9% IV EDIE PRN Hypotension Isosorbide Dinitrate 10 mg 08/26/19 12:00 08/30/19 21:31 Isordil Titradose PO 10 mg BID WILL Administration Levetiracetam 750 mg 08/24/19 10:00 08/30/19 21:31 Keppra PO 750 mg BID WILL Administration Morphine Sulfate 2 mg 08/24/19 14:55 08/28/19 09:12 Morphine IV 2 mg Q4H PRN Administration Pain, Moderate (4-6) Nifedipine 60 mg 08/24/19 13:00 08/30/19 10:39 Procardia Xl PO 60 mg QDAY WILL Administration Ondansetron HCl 4 mg 08/24/19 14:55 08/25/19 15:27 Zofran IV 4 mg Q8H PRN Administration Nausea And Vomiting Pravastatin Sodium 20 mg 08/24/19 22:00 08/30/19 21:30 Pravachol PO 20 mg QHS WILL Administration Sodium Chloride 10 ml 08/24/19 22:00 08/30/19 21:32 Sodium Chloride Flush Syringe 10 Ml IV 10 ml BID WILL Administration Sodium Chloride 10 ml 08/24/19 14:55 Sodium Chloride Flush Syringe 10 Ml IV PRN PRN LINE FLUSH Thiamine HCl 100 mg 08/24/19 13:00 08/30/19 10:41 Vitamin B-1 PO 100 mg QDAY WILL Administration Zolpidem Tartrate 5 mg 08/27/19 23:42 08/30/19 21:35 Ambien PO 5 mg QHS PRN Administration Sleep
[2019-08-31] MEDS ORDERED: SODIUM CHLORIDE*PRIMING MACHINE ONLY FOR DIALYSIS MC ONE (11:43)
--- NOTE | 2019-08-31 15:36 | Progress Note ---
Assessment and Plan Assessment and plan: Acute respiratory failure due to CHF exacerbation Cont. Supplemental Oxygen Currentlyoff BIPAP Acute on chronic systolic CHF Lasix iv given in ED consulted Cardiology, following Patient states he has been non-compliant, did not fill prescriptions after discharge about 2 weeks ago ESRD Previously with Acute on chronic kidney disease Consulted Nephrology, following Nephrology recommended initiating hemodialysis Started on hemodialysis 08/28 Will need outpatient hemodialysis No acute indication for HD today HD tomorrow ordered Assess need for HD on daily basis Epogen dosing for anemia management S/p Right IJ Perm catheter placement by Dr Murphy on 08/27/19 Consulted CM for outpatient dialysis placement at [facility] in [place], [place] to be discharged from renal standpoint once secured Hypertensive emergency he was started on Nitro drip resume home meds and hopefully taper of Nitro drip medical non-compliance He states he did not fill any of prescriptions after discharge from here 2 weeks ago. I counseled him on importance of taking meds and following with Physician Seizure disorder resumed keppra seizure precautions Full code status History Interval history: Patient is 58 yo with hypertension, chronic systolic CHF, [id number] disorder. He presents with shortness of breath and leg swelling. He denies chest pain. he was just discharged from here exactly 2 weeks ago on 08/10/19. he states he did not fill any of prescriptions including lasix. In ED, he was diagnosed with acute respiratory failure, was put on BIPAP. CXR revealed pulmonary edema, CHF exacerbation. He was given Lasix iv. Also BP was 196/127 so was started on nitroglycerin drip. BP improved, drip discontinued and he was admitted to Telemetry. Renal function remained poor, he was diagnosed with ESRD therefor dialysis catheter placed and he was started on dialysis 08/28. He will need outpatient hemodialysis arrangement. Hospitalist Physical - Constitutional Vitals: Temp Pulse Resp BP Pulse Ox 98.0 F 65 16 148/91 98 08/31/19 13:25 08/31/19 13:25 08/31/19 13:25 08/31/19 13:25 08/31/19 13:25 General appearance: Present: other (on Bipap) - EENT Eyes: Present: PERRL, EOM intact ENT: hearing intact, clear oral mucosa, dentition normal - Neck Neck: Present: supple, normal ROM - Respiratory Respiratory effort: normal Respiratory: bilateral: CTA - Cardiovascular Rhythm: regular Heart Sounds: Present: S1 & S2. Absent: gallop, rub - Extremities Extremities: no ischemia, No edema, Full ROM - Abdominal General gastrointestinal: soft, non-tender, non-distended, normal bowel sounds - Integumentary Integumentary: Present: clear, warm, dry - Neurologic Neurologic: CNII-XII intact, moves all extremities Results - Labs CBC & Chem 7: 08/26/19 04:36 08/31/19 08:00 Labs: Laboratory Last Values WBC 3.9 K/mm3 (4.5-11.0) L 08/26/19 04:36 RBC 2.35 M/mm3 (3.65-5.03) L 08/26/19 04:36 Hgb 7.8 gm/dl (11.8-15.2) L 08/26/19 04:36 Hct 23.5 % (35.5-45.6) L 08/26/19 04:36 MCV 100 fl (84-94) H 08/26/19 04:36 MCH 33 pg (28-32) H 08/26/19 04:36 MCHC 33 % (32-34) 08/26/19 04:36 RDW 16.6 % (13.2-15.2) H 08/26/19 04:36 Plt Count 223 K/mm3 (140-440) 08/26/19 04:36 Lymph % (Auto) 7.4 % (13.4-35.0) L 08/26/19 04:36 [place] % (Auto) 5.3 % (0.0-7.3) 08/26/19 04:36 Eos % (Auto) 1.8 % (0.0-4.3) 08/26/19 04:36 Baso % (Auto) 0.7 % (0.0-1.8) 08/26/19 04:36 Lymph # 0.3 K/mm3 (1.2-5.4) L 08/26/19 04:36 [place] # 0.2 K/mm3 (0.0-0.8) 08/26/19 04:36 Eos # 0.1 K/mm3 (0.0-0.4) 08/26/19 04:36 Baso # 0.0 K/mm3 (0.0-0.1) 08/26/19 04:36 Seg Neutrophils % 84.8 % (40.0-70.0) H 08/26/19 04:36 Seg Neutrophils # 3.3 K/mm3 (1.8-7.7) 08/26/19 04:36 PT 13.8 Sec. (12.2-14.9) 08/24/19 06:30 INR 1.07 (0.87-1.13) 08/24/19 06:30 APTT 27.8 Sec. (24.2-36.6) 08/24/19 06:30 Sodium 139 mmol/L (137-145) 08/31/19 08:00 Potassium 4.8 mmol/L (3.6-5.0) 08/31/19 08:00 Chloride 104.9 mmol/L (98-107) 08/31/19 08:00 Carbon Dioxide 21 mmol/L (22-30) L 08/31/19 08:00 Anion Gap 18 mmol/L 08/31/19 08:00 BUN 45 mg/dL (9-20) H 08/31/19 08:00 Creatinine 4.9 mg/dL (0.8-1.5) H 08/31/19 08:00 Estimated GFR 15 ml/min 08/31/19 08:00 BUN/Creatinine Ratio 9 % 08/31/19 08:00 Glucose 87 mg/dL (75-100) 08/31/19 08:00 Calcium 8.6 mg/dL (8.4-10.2) 08/31/19 08:00 Phosphorus 5.00 mg/dL (2.5-4.5) H 08/26/19 04:36 Magnesium 1.50 mg/dL (1.7-2.3) L 08/24/19 06:30 Total Bilirubin < 0.20 mg/dL (0.1-1.2) 08/24/19 06:30 AST 25 units/L (5-40) 08/24/19 06:30 ALT 45 units/L (7-56) 08/24/19 06:30 Alkaline Phosphatase 165 units/L (35-129) H 08/24/19 06:30 Total Creatine Kinase 154 units/L (55-170) 08/24/19 06:30 Troponin T 0.031 ng/mL (0.00-0.029) H 08/24/19 06:30 Total Protein 6.5 g/dL (6.3-8.2) 08/24/19 06:30 Albumin 3.7 g/dL (3.9-5) L 08/24/19 06:30 Albumin/Globulin Ratio 1.3 % 08/24/19 06:30 Triglycerides 65 mg/dL (2-149) 08/24/19 06:30 Cholesterol 127 mg/dL (50-199) 08/24/19 06:30 LDL Cholesterol Direct 69 mg/dL (50-130) 08/24/19 06:30 HDL Cholesterol 53 mg/dL (40-59) 08/24/19 06:30 Cholesterol/HDL Ratio 2.39 % 08/24/19 06:30 Urine Color Yellow (Yellow) 08/24/19 Unknown Urine Turbidity Clear (Clear) 08/24/19 Unknown Urine pH 5.0 (5.0-7.0) 08/24/19 Unknown Ur Specific [place] 1.014 (1.003-1.030) 08/24/19 Unknown Urine Protein >2000 mg dl mg/dL (Negative) 08/24/19 Unknown Urine Glucose (UA) 50 mg/dL (Negative) 08/24/19 Unknown Urine Ketones Neg mg/dL (Negative) 08/24/19 Unknown Urine Blood Sm (Negative) 08/24/19 Unknown Urine Nitrite Neg (Negative) 08/24/19 Unknown Urine Bilirubin Neg (Negative) 08/24/19 Unknown Urine Urobilinogen < 2.0 mg/dL (<2.0) 08/24/19 Unknown Ur Leukocyte Esterase Neg (Negative) 08/24/19 Unknown Urine WBC (Auto) 2.0 /HPF (0.0-6.0) 08/24/19 Unknown Urine RBC (Auto) 2.0 /HPF (0.0-6.0) 08/24/19 Unknown Urine Creatinine 65.7 mg/dL (0.1-20.0) H 08/25/19 22:10 Protein/Creatinin Ratio 1.31 08/25/19 22:10 Urine Sodium 81 mmol/L 08/25/19 22:10 Urine Total Protein 86 mg/dL (5-11.8) H 08/25/19 22:10 Hepatitis A IgM Ab Non-reactive (NonReactive) 08/26/19 10:12 Hep Bs Antigen Non-reactive (Negative) 08/26/19 10:12 Hep B Core IgM Ab Non-reactive (NonReactive) 08/26/19 10:12 Hepatitis C Antibody Non-reactive (NonReactive) 08/26/19 10:12 Active Medications - Current Medications Current Medications: Generic Name Dose Route Start Last Admin Trade Name Freq PRN Reason Stop Dose Admin Acetaminophen 650 mg 08/24/19 14:55 Tylenol PO Q4H PRN Pain MILD(1-3)/Fever >100.5/TORIBIO Acetaminophen/Hydrocodone Bitart 1 each 08/25/19 15:01 08/30/19 10:46 [place] 5/325 PO 1 each Q6H PRN Administration Pain, Moderate (4-6) Albuterol 2.5 mg 08/24/19 14:55 Proventil IH Q4HRT PRN Shortness Of Breath Aspirin 81 mg 08/25/19 10:00 08/30/19 10:51 Baby Aspirin PO 81 mg QDAY WILL Administration Carvedilol 25 mg 08/24/19 10:00 08/30/19 21:30 Coreg PO 25 mg BID WILL Administration Epoetin Leandro 10,000 unit 08/28/19 13:00 08/31/19 13:12 Procrit SUB-Q 10,000 unit EDIE WILL Administration Folic Acid 1 mg 08/24/19 13:00 08/30/19 10:41 Folvite PO 1 mg QDAY WILL Administration Furosemide 40 mg 08/25/19 10:00 08/30/19 10:42 Lasix PO 40 mg QDAY WILL Administration Heparin Sodium (Porcine) 5,000 unit 08/24/19 22:00 08/30/19 21:31 Heparin SUB-Q 5,000 unit Q12HR WILL Administration Hydralazine HCl 50 mg 08/24/19 09:00 08/31/19 05:41 Apresoline PO 50 mg Q8HR WILL Administration Hydralazine HCl 20 mg 08/24/19 15:17 Apresoline IV Q4HR PRN SBP>170 or DBP>110 Sodium Chloride 100 mls @ 999 mls/hr 08/29/19 13:22 Nacl 0.9% IV EDIE PRN Hypotension Isosorbide Dinitrate 10 mg 08/26/19 12:00 08/30/19 21:31 Isordil Titradose PO 10 mg BID WILL Administration Levetiracetam 750 mg 08/24/19 10:00 08/30/19 21:31 Keppra PO 750 mg BID WILL Administration Morphine Sulfate 2 mg 08/24/19 14:55 08/28/19 09:12 Morphine IV 2 mg Q4H PRN Administration Pain, Moderate (4-6) Nifedipine 60 mg 08/24/19 13:00 08/30/19 10:39 Procardia Xl PO 60 mg QDAY WILL Administration Ondansetron HCl 4 mg 08/24/19 14:55 08/25/19 15:27 Zofran IV 4 mg Q8H PRN Administration Nausea And Vomiting Pravastatin Sodium 20 mg 08/24/19 22:00 08/30/19 21:30 Pravachol PO 20 mg QHS WILL Administration Sodium Chloride 10 ml 08/24/19 22:00 08/30/19 21:32 Sodium Chloride Flush Syringe 10 Ml IV 10 ml BID WILL Administration Sodium Chloride 10 ml 08/24/19 14:55 Sodium Chloride Flush Syringe 10 Ml IV PRN PRN LINE FLUSH Thiamine HCl 100 mg 08/24/19 13:00 08/30/19 10:41 Vitamin B-1 PO 100 mg QDAY WILL Administration Zolpidem Tartrate 5 mg 08/27/19 23:42 08/30/19 21:35 Ambien PO 5 mg QHS PRN Administration Sleep Nutrition/Malnutrition Assess - Dietary Evaluation Nutrition/Malnutrition Findings: Nutrition Notes Start: 08/31/19 14:12 Freq: Status: Active Protocol: Document 08/31/19 14:12 CT (Rec: 08/31/19 14:27 CT [id number]) Co-Sign 08/31/19 14:12 LP Nutrition Notes Need for Assessment generated from: LOS,Education Initial or Follow up Assessment Current Diagnosis Hypertension,Heart Failure Other Pertinent Diagnosis ESRD on HD, pulmonary edema, medical noncompliance, seizure disorder Current Diet Renal Labs/Tests BUN 45 Creatinine 4.9 Pertinent Medications Keppra Lasix Height 5 ft 7 in Weight 74 kg Usual Body Weight 68.039 kg [place] Body Weight (kg) 67.27 BMI 25.5 Intake Prior to Admission Good Weight Status Overweight Subjective/Other Information LOS assessment. Pt was eating his lunch at time of visit and requested more, was able to locate RN to get pt another tray. Pt was asked if he wanted double portions and he said yes. Pt is eating 100% of meals and has a good appetite. Education on renal diet was given to pt. Pt stated that he can't read d/t not having reading glasses. Burn Absent Trauma Absent GI Symptoms None Current % PO Good (75-100%) Minimum of two criteria No physical signs of malnutrition #1 Nutrition Diagnosis Food and nutrition-related knowledge deficit Etiology no previous knowledge on renal diet As Evidenced by Signs and Symptoms pt acceptance of renal diet discussion and handout Is patient on ventilator? No Is Patient Ambulatory and/or Out of Bed Yes REE-([facility]-ambulatory/OOB) [ 1974.219 [id number]] Calculation Used for Recommendations [facility] Additional Notes Protein: >89 g/kg/day (>1.2 g/ kg/day) Fluid: urine output + 1000 ml /day Nutrition Intervention Change Diet Order: Continue Renal with double portions Teaching Recipient Patient Learning Readiness Fair Teaching Methods Discussion,Handout Response to Teaching Reinforcement needed Education Handouts Provided Chronic Kidney Disease Nutrition Barriers to Learning Visual,Motivation RD phone number provided Yes Patient aware of follow up options Yes Goal #1 Acceptance and understanding of diet education Revisit per MD consult or patient Sign Off request:
[2019-08-31] MEDS: MORPHINE 2 MG/1 ML INJ IV PRN (16:43)
[2019-08-31] MEDS: ASPIRIN 81 MG TAB CHEW PO SCH (20:29)
[2019-08-31] MEDS: carvediloL 25 MG TAB PO SCH ×2 (20:30→21:54)
[2019-08-31] MEDS: ISOSORBIDE DINITRATE 10 MG TAB PO SCH ×2 (20:30→21:54)
[2019-08-31] MEDS: HEPARIN 5,000 UNIT/1 ML VIAL SUB-Q SCH ×2 (20:30→21:55)
[2019-08-31] MEDS: levETIRAcetam 500 MG TAB PO SCH ×2 (20:30→21:54)
[2019-08-31] MEDS: FOLIC ACID 1 MG TAB PO SCH (20:30)
[2019-08-31] MEDS: NIFEdipine XL 60 MG TAB PO SCH (20:31)
[2019-08-31] MEDS: FUROSEMIDE 40 MG TAB PO SCH (20:31)
[2019-08-31] MEDS: THIAMINE 100 MG TAB PO SCH (20:31)
[2019-08-31] MEDS: PRAVASTATIN 20 MG TAB PO SCH (21:54)
[2019-09-01] MEDS: hydrALAZINE 25 MG TAB PO SCH ×4 (05:12→22:23)
[2019-09-01 06:47] LABS: Calcium 8.7 mg/dL (8.4-10.2)
[2019-09-01] MEDS: FOLIC ACID 1 MG TAB PO SCH (10:02)
[2019-09-01] MEDS: carvediloL 25 MG TAB PO SCH ×2 (10:02→22:24)
[2019-09-01] MEDS: NIFEdipine XL 60 MG TAB PO SCH (10:02)
[2019-09-01] MEDS: ASPIRIN 81 MG TAB CHEW PO SCH (10:02)
[2019-09-01] MEDS: THIAMINE 100 MG TAB PO SCH (10:02)
[2019-09-01] MEDS: FUROSEMIDE 40 MG TAB PO SCH (10:02)
[2019-09-01] MEDS: ISOSORBIDE DINITRATE 10 MG TAB PO SCH ×2 (10:02→22:23)
[2019-09-01] MEDS: levETIRAcetam 500 MG TAB PO SCH ×2 (10:03→22:25)
[2019-09-01] MEDS: HEPARIN 5,000 UNIT/1 ML VIAL SUB-Q SCH ×2 (10:06→22:25)
--- NOTE | 2019-09-01 11:28 | Discharge Summary ---
Providers - Providers Date of Admission: 08/24/19 07:31 Date of discharge: 09/01/19 Attending physician: WILL VALERO 08/24/19 08:14 Consult to Physician [CONS] Routine Comment: Consulting Provider: ALISON ROCHA Physician Instructions: Reason For Exam: CKD 08/25/19 20:25 Consult to Physician [CONS] Routine Comment: Consulting Provider: KAIA SALAZAR Physician Instructions: Reason For Exam: permcath placement 08/28/19 12:09 Consult to Case Management [CONS] Routine Services Needed at Discharge: Other Notified:: case management Comment:: outpatient dialysis placement - try [facility] in [place] 08/30/19 09:00 Consult to Case Management [CONS] Routine 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 Patient was admitted with diagnosis of acute on chronic systolic heart failure, acute on chronic renal failure and acute hypoxemia respiratory failure. Pt required Bipap on admission. Further evaluation with a chest x-ray reported interstitial edema. Initial labs revealed a creatinine of 6.4 from 5.5 3 weeks ago. His most recent echocardiogram done in this hospital 3 weeks ago reported a left ventricular ejection fraction 20-25%. A thallium myocardial perfusion study done a year ago was negative for ischemia. Patient is also known noncompliant with medical therapy, outpatient follow-up visits, and is currently not on dialysis. Cardiology saw the patient in consultation and recommended diuresis and afterload reduction. Unfortunately patient had no significant improvement. He continued to have severe renal failure and volume overload/respiratory failure. Therefore, cardiology and nephrology made the decision to proceed with hemodialysis. Patient had a permacath placed and hemodialysis was initiated. Patient's respiratory status improved and he was weaned off of BiPAP. Patient's hypertension improved where he was initially started on nitro drip on admission and then maintain on medications. Case management arranged for outpatient dialysis placement and is felt to have received maximal hospital benefit for discharge. Dedicated discharge time 35 minutes. Disposition: [id number] TO HOME OR SELFCARE Time spent for discharge: 35 - Discharge Diagnoses (1) CHF exacerbation Status: Acute Qualifiers: (2) COPD exacerbation Status: Acute (3) Cardiorenal syndrome with renal failure Status: Acute (4) ARF (acute renal failure) with tubular necrosis Status: Acute (5) Acute on chronic systolic (congestive) heart failure Status: Acute (6) Acute renal failure superimposed on chronic kidney disease Status: Acute Qualifiers: Acute renal failure type: unspecified Chronic kidney disease stage: unspecified stage Qualified Code(s): N17.9 - Acute kidney failure, unspecified; N18.9 - Chronic kidney disease, unspecified (7) HTN (hypertension) Status: Acute Qualifiers: Hypertension type: unspecified Qualified Code(s): I10 - Essential (primary) hypertension (8) Hyperkalemia Status: Acute (9) Hypertension associated with stage 3 chronic kidney disease due to type 2 diabetes mellitus Status: Acute (10) Respiratory failure Status: Acute Qualifiers: Chronicity: acute Respiratory failure complication: hypoxia Qualified Code(s): J96.01 - Acute respiratory failure with hypoxia Core Measure Documentation - Palliative Care Palliative Care/ Comfort Measures: Not Applicable - Core Measures Any of the following diagnoses?: none Exam - Constitutional Vitals: Temp Pulse Resp BP Pulse Ox 98.4 F 66 18 138/84 97 09/01/19 08:32 09/01/19 10:02 09/01/19 08:32 09/01/19 10:02 09/01/19 08:32 General appearance: Present: no acute distress, well-nourished - EENT Eyes: Present: PERRL ENT: hearing intact, clear oral mucosa - Neck Neck: Present: supple, normal ROM - Respiratory Respiratory effort: normal Respiratory: bilateral: CTA - Cardiovascular Heart Sounds: Present: S1 & S2. Absent: rub, click - Extremities Extremities: pulses symmetrical, No edema Peripheral Pulses: within normal limits - Abdominal General gastrointestinal: Present: soft, non-tender, non-distended, normal bowel sounds Male genitourinary: Present: normal - Integumentary Integumentary: Present: clear, warm, dry - Musculoskeletal Musculoskeletal: gait normal, strength equal bilaterally - Psychiatric Psychiatric: appropriate mood/affect, intact judgment & insight - Neurologic Neurologic: CNII-XII intact, moves all extremities Plan Activity: advance as tolerated Weight Bearing Status: Weight Bear as Tolerated Diet: renal Follow up with: DAVIS CASTANO MD [Primary Care Provider] - 7 Days Prescriptions: amLODIPine 10 mg PO QDAY #30 tablet hydrALAZINE [Apresoline TAB] 50 mg PO Q8H #90 tablet Aspirin [Aspirin BABY CHEW TAB] 81 mg PO QDAY #30 tab.chew carvediloL [Coreg] 25 mg PO BID #60 tablet Folic Acid [Folvite] 1 mg PO QDAY #30 tablet Isosorbide Dinitrate [Isordil Titradose] 10 mg PO BID #30 tablet levETIRAcetam [Keppra TAB] 750 mg PO BID #60 tablet Pravastatin Sodium [Pravastatin] 20 mg PO QHS #60 tablet NIFEdipine XL [Procardia Xl] 60 mg PO QDAY #30 tablet Thiamine [Vitamin B-1] 100 mg PO QDAY #30 tablet
--- NOTE | 2019-09-01 14:44 | Progress Note ---
Assessment and Plan Assessment: Acute on chronic systolic heart failure Severe renal failure, likely progressing CKD, cardiorenal syndrome Pulmonary Edema Hypertension Metabolic Acidosis Prescription Non-compliance Plan: - S/P HD yesterday for UF and clearance - S/p Right IJ Perm catheter placement by Dr Murphy on 08/27/19 - On Lasix 40 mg po daily, adjust as needed - On Epogen 10,000 units Sq TIW - Renally dose medications - Strict I&O monitoring - Obtain daily weights - Continue to monitor - Case management onboard for outpatient HD arrangement, TONY will contact [facility] to see if placement can be arranged there, if not she will reach out to Carlos Sprague Date of service: 09/01/19 Principal diagnosis: ESRD Interval history: Patient seen sitting up in bed with air filler at bedside. Objective - Vital Signs Vital signs: Vital Signs - 12hr 09/01/19 09/01/19 09/01/19 05:18 08:32 10:00 Temperature 98.9 F 98.4 F Pulse Rate 66 65 65 Respiratory 18 18 18 Rate Blood Pressure 139/91 138/84 O2 Sat by Pulse 99 97 Oximetry 09/01/19 09/01/19 09/01/19 10:02 12:22 13:49 Temperature 98.0 F Pulse Rate 66 66 64 Respiratory 18 Rate Blood Pressure 138/84 110/75 123/69 O2 Sat by Pulse 99 Oximetry - General Appearance General appearance: well-developed, appears stated age EENT: ATNC, PERRL, hearing intact, vision intact Neck: no JVD, supple Respiratory: Present: Decreased Breath Sounds Cardiology: regular, S1S2 Gastrointestinal: normoactive bowel sounds Integumentary: warm and dry Neurologic: alert and oriented x3 Musculoskeletal: other (mild edema) Psychiatric: cooperative - Lab 08/26/19 04:36 09/01/19 05:51 Most recent lab results Calcium 8.7 mg/dL (8.4-10.2) 09/01/19 05:51 Phosphorus 5.00 mg/dL (2.5-4.5) H 08/26/19 04:36 Magnesium 1.50 mg/dL (1.7-2.3) L 08/24/19 06:30 Urine Creatinine 65.7 mg/dL (0.1-20.0) H 08/25/19 22:10 Urine Sodium 81 mmol/L 08/25/19 22:10 Urine Total Protein 86 mg/dL (5-11.8) H 08/25/19 22:10 Medications & Allergies - Medications Allergies/Adverse Reactions: Allergies No Known Allergies Allergy (Verified 04/09/19 13:12) Home Medications: Home Medications Medication Instructions Recorded Confirmed Last Taken Type Benzonatate [Tessalon Perles] 100 mg PO Q8HR #10 capsule 08/10/19 08/24/19 Unknown Rx Aspirin [Aspirin BABY CHEW TAB] 81 mg PO QDAY #30 tab.chew 09/01/19 Unknown Rx Epoetin Leandro 10,000 Unit [Procrit] 10,000 unit SUB-Q EDIE vial 09/01/19 Unknown Rx Folic Acid [Folvite] 1 mg PO QDAY #30 tablet 09/01/19 Unknown Rx Furosemide [Lasix TAB] 40 mg PO QDAY tablet 09/01/19 Unknown Rx Isosorbide Dinitrate [Isordil 10 mg PO BID #30 tablet 09/01/19 Unknown Rx Titradose] NIFEdipine XL [Procardia Xl] 60 mg PO QDAY #30 tablet 09/01/19 Unknown Rx Pravastatin Sodium [Pravastatin] 20 mg PO QHS #60 tablet 09/01/19 Unknown Rx Pravastatin [Pravachol] 20 mg PO QHS #30 tablet 09/01/19 Unknown Rx Thiamine [Vitamin B-1] 100 mg PO QDAY #30 tablet 09/01/19 Unknown Rx amLODIPine 10 mg PO QDAY #30 tablet 09/01/19 Unknown Rx carvediloL [Coreg] 25 mg PO BID #60 tablet 09/01/19 Unknown Rx hydrALAZINE [Apresoline TAB] 50 mg PO Q8H #90 tablet 09/01/19 Unknown Rx levETIRAcetam [Keppra TAB] 750 mg PO BID #60 tablet 09/01/19 Unknown Rx Active Medications: Generic Name Dose Route Start Last Admin Trade Name Freq PRN Reason Stop Dose Admin Acetaminophen 650 mg 08/24/19 14:55 Tylenol PO Q4H PRN Pain MILD(1-3)/Fever >100.5/TORIBIO Acetaminophen/Hydrocodone Bitart 1 each 08/25/19 15:01 08/30/19 10:46 [place] 5/325 PO 1 each Q6H PRN Administration Pain, Moderate (4-6) Albuterol 2.5 mg 11/26/19 14:55 Proventil IH Q4HRT PRN Shortness Of Breath Aspirin 81 mg 08/25/19 10:00 09/01/19 10:02 Baby Aspirin PO 81 mg QDAY WILL Administration Carvedilol 25 mg 08/24/19 10:00 09/01/19 10:02 Coreg PO 25 mg BID WILL Administration Epoetin Leandro 10,000 unit 08/28/19 13:00 08/31/19 13:12 Procrit SUB-Q 10,000 unit EDIE WILL Administration Folic Acid 1 mg 08/24/19 13:00 09/01/19 10:02 Folvite PO 1 mg QDAY WILL Administration Furosemide 40 mg 08/25/19 10:00 09/01/19 10:02 Lasix PO 40 mg QDAY WILL Administration Heparin Sodium (Porcine) 5,000 unit 08/24/19 22:00 09/01/19 10:06 Heparin SUB-Q 5,000 unit Q12HR WILL Administration Hydralazine HCl 50 mg 08/24/19 09:00 09/01/19 13:49 Apresoline PO 50 mg Q8HR WILL Administration Hydralazine HCl 20 mg 08/24/19 15:17 Apresoline IV Q4HR PRN SBP>170 or DBP>110 Sodium Chloride 100 mls @ 999 mls/hr 08/29/19 13:22 Nacl 0.9% IV EDIE PRN Hypotension Isosorbide Dinitrate 10 mg 08/26/19 12:00 09/01/19 10:02 Isordil Titradose PO 10 mg BID WILL Administration Levetiracetam 750 mg 08/24/19 10:00 09/01/19 10:03 Keppra PO 750 mg BID WILL Administration Morphine Sulfate 2 mg 08/24/19 14:55 08/31/19 16:43 Morphine IV 2 mg Q4H PRN Administration Pain, Moderate (4-6) Nifedipine 60 mg 08/24/19 13:00 09/01/19 10:02 Procardia Xl PO 60 mg QDAY WILL Administration Ondansetron HCl 4 mg 08/24/19 14:55 08/25/19 15:27 Zofran IV 4 mg Q8H PRN Administration Nausea And Vomiting Pravastatin Sodium 20 mg 08/24/19 22:00 08/31/19 21:54 Pravachol PO 20 mg QHS WILL Administration Sodium Chloride 10 ml 08/24/19 22:00 09/01/19 10:03 Sodium Chloride Flush Syringe 10 Ml IV 10 ml BID WILL Administration Sodium Chloride 10 ml 08/24/19 14:55 Sodium Chloride Flush Syringe 10 Ml IV PRN PRN LINE FLUSH Thiamine HCl 100 mg 08/24/19 13:00 09/01/19 10:02 Vitamin B-1 PO 100 mg QDAY WILL Administration Zolpidem Tartrate 5 mg 08/27/19 23:42 08/30/19 21:35 Ambien PO 5 mg QHS PRN Administration Sleep
[2019-09-01] MEDS: PRAVASTATIN 20 MG TAB PO SCH (22:25)
--- NOTE | 2019-09-02 00:23 | Event Note ---
Date: 09/02/19 Pt experienced unwitnessed fall. He was found on floor in floor calling out for assistance . There was no injury/ trauma to head. Initiate post fall protocol. Neuro checks.
[2019-09-02] MEDS: MORPHINE 2 MG/1 ML INJ IV PRN (04:20)
[2019-09-02] MEDS ORDERED: PHENOL 1.4% 177 ML BOTTLE MM PRN (04:29)
[2019-09-02 05:44] LABS: Calcium 8.6 mg/dL (8.4-10.2)
[2019-09-02] MEDS: hydrALAZINE 25 MG TAB PO SCH ×3 (06:27→22:37)
[2019-09-02] MEDS: HYDROcodone/ACETAMINOPHEN 5-325 MG TAB PO PRN (08:22)
[2019-09-02] MEDS: carvediloL 25 MG TAB PO SCH ×2 (09:39→22:36)
[2019-09-02] MEDS: ASPIRIN 81 MG TAB CHEW PO SCH (09:39)
[2019-09-02] MEDS: ISOSORBIDE DINITRATE 10 MG TAB PO SCH ×2 (09:40→22:36)
[2019-09-02] MEDS: HEPARIN 5,000 UNIT/1 ML VIAL SUB-Q SCH ×2 (09:40→22:38)
[2019-09-02] MEDS: FUROSEMIDE 40 MG TAB PO SCH (09:40)
[2019-09-02] MEDS: NIFEdipine XL 60 MG TAB PO SCH (09:41)
--- NOTE | 2019-09-02 12:30 | Progress Note ---
Assessment and Plan Acute on chronic systolic heart failure ESRD on HD Pulmonary Edema Hypertension Metabolic Acidosis Prescription Non-compliance Plan: - HD today for clearance and volume removal - S/p Right IJ Perm catheter placement by Dr Murphy on 08/27/19 - On Epogen 10,000 units Sq TIW - Renally dose medications - Strict I&O monitoring - Obtain daily weights - Continue to monitor - Case management onboard for outpatient HD arrangement, can be discharged from renal standpoint when outpatient HD is secured Zach paulino MD [phone] Subjective Date of service: 09/02/19 Principal diagnosis: ESRD Interval history: was in HD this AM Objective - Vital Signs Vital signs: Vital Signs - 12hr 09/02/19 09/02/19 09/02/19 05:36 05:37 06:27 Temperature 98.9 F Pulse Rate 64 64 Respiratory 18 Rate Blood Pressure 131/87 131/87 O2 Sat by Pulse 100 Oximetry O2 Sat by Pulse Oximetry [ Anterior Bilateral Throughout] 09/02/19 09/02/19 09/02/19 08:37 09:37 09:45 Temperature 98.6 F 98.9 F Pulse Rate 62 67 62 Respiratory 18 18 Rate Blood Pressure 132/76 126/76 123/69 O2 Sat by Pulse 94 Oximetry O2 Sat by Pulse 97 Oximetry [ Anterior Bilateral Throughout] 09/02/19 09/02/19 09/02/19 10:00 10:15 10:30 Temperature Pulse Rate 66 68 66 Respiratory Rate Blood Pressure 120/70 113/73 114/74 O2 Sat by Pulse Oximetry O2 Sat by Pulse Oximetry [ Anterior Bilateral Throughout] 09/02/19 09/02/19 09/02/19 10:45 11:00 11:15 Temperature Pulse Rate 68 65 70 Respiratory Rate Blood Pressure 125/68 115/73 109/66 O2 Sat by Pulse Oximetry O2 Sat by Pulse Oximetry [ Anterior Bilateral Throughout] 09/02/19 09/02/19 09/02/19 11:30 11:45 12:00 Temperature Pulse Rate 68 69 63 Respiratory Rate Blood Pressure 114/68 118/68 119/77 O2 Sat by Pulse Oximetry O2 Sat by Pulse Oximetry [ Anterior Bilateral Throughout] - Lab 08/26/19 04:36 09/02/19 05:03 Most recent lab results Calcium 8.6 mg/dL (8.4-10.2) 09/02/19 05:03 Phosphorus 5.00 mg/dL (2.5-4.5) H 08/26/19 04:36 Magnesium 1.50 mg/dL (1.7-2.3) L 08/24/19 06:30 Urine Creatinine 65.7 mg/dL (0.1-20.0) H 08/25/19 22:10 Urine Sodium 81 mmol/L 08/25/19 22:10 Urine Total Protein 86 mg/dL (5-11.8) H 08/25/19 22:10 Medications & Allergies - Medications Allergies/Adverse Reactions: Allergies No Known Allergies Allergy (Verified 04/09/19 13:12) Home Medications: Home Medications Medication Instructions Recorded Confirmed Last Taken Type Benzonatate [Tessalon Perles] 100 mg PO Q8HR #10 capsule 08/10/19 08/24/19 Unknown Rx Aspirin [Aspirin BABY CHEW TAB] 81 mg PO QDAY #30 tab.chew 09/01/19 Unknown Rx Epoetin Leandro 10,000 Unit [Procrit] 10,000 unit SUB-Q EDIE vial 09/01/19 Unknown Rx Folic Acid [Folvite] 1 mg PO QDAY #30 tablet 09/01/19 Unknown Rx Furosemide [Lasix TAB] 40 mg PO QDAY tablet 09/01/19 Unknown Rx Isosorbide Dinitrate [Isordil 10 mg PO BID #30 tablet 09/01/19 Unknown Rx Titradose] NIFEdipine XL [Procardia Xl] 60 mg PO QDAY #30 tablet 09/01/19 Unknown Rx Pravastatin Sodium [Pravastatin] 20 mg PO QHS #60 tablet 09/01/19 Unknown Rx Pravastatin [Pravachol] 20 mg PO QHS #30 tablet 09/01/19 Unknown Rx Thiamine [Vitamin B-1] 100 mg PO QDAY #30 tablet 09/01/19 Unknown Rx amLODIPine 10 mg PO QDAY #30 tablet 09/01/19 Unknown Rx carvediloL [Coreg] 25 mg PO BID #60 tablet 09/01/19 Unknown Rx hydrALAZINE [Apresoline TAB] 50 mg PO Q8H #90 tablet 09/01/19 Unknown Rx levETIRAcetam [Keppra TAB] 750 mg PO BID #60 tablet 09/01/19 Unknown Rx Active Medications: Generic Name Dose Route Start Last Admin Trade Name Freq PRN Reason Stop Dose Admin Acetaminophen 650 mg 08/24/19 14:55 Tylenol PO Q4H PRN Pain MILD(1-3)/Fever >100.5/TORIBIO Acetaminophen/Hydrocodone Bitart 1 each 08/25/19 15:01 09/02/19 08:22 [place] 5/325 PO 1 each Q6H PRN Administration Pain, Moderate (4-6) Albuterol 2.5 mg 08/24/19 14:55 Proventil IH Q4HRT PRN Shortness Of Breath Aspirin 81 mg 08/25/19 10:00 09/02/19 09:39 Baby Aspirin PO Not Given QDAY [facility] Carvedilol 25 mg 08/24/19 10:00 09/02/19 09:39 Coreg PO Not Given BID [facility] Epoetin Leandro 10,000 unit 08/28/19 13:00 08/31/19 13:12 Procrit SUB-Q 10,000 unit EDIE [facility] Administration Folic Acid 1 mg 08/24/19 13:00 09/01/19 10:02 Folvite PO 1 mg QDAY [facility] Administration Furosemide 40 mg 08/25/19 10:00 09/02/19 09:40 Lasix PO Not Given QDAY [facility] Heparin Sodium (Porcine) 5,000 unit 08/24/19 22:00 09/02/19 09:40 Heparin SUB-Q Not Given Q12HR [facility] Hydralazine HCl 50 mg 08/24/19 09:00 09/02/19 06:27 Apresoline PO 50 mg Q8HR WILL Administration Hydralazine HCl 20 mg 08/24/19 15:17 Apresoline IV Q4HR PRN SBP>170 or DBP>110 Sodium Chloride 100 mls @ 999 mls/hr 08/29/19 13:22 Nacl 0.9% IV EDIE PRN Hypotension Isosorbide Dinitrate 10 mg 08/26/19 12:00 09/02/19 09:40 Isordil Titradose PO Not Given BID [facility] Levetiracetam 750 mg 08/24/19 10:00 09/01/19 22:25 Keppra PO 750 mg BID WILL Administration Morphine Sulfate 2 mg 08/24/19 14:55 09/02/19 04:20 Morphine IV 2 mg Q4H PRN Administration Pain, Moderate (4-6) Nifedipine 60 mg 08/24/19 13:00 09/02/19 09:41 Procardia Xl PO Not Given QDAY WILL Ondansetron HCl 4 mg 08/24/19 14:55 08/25/19 15:27 Zofran IV 4 mg Q8H PRN Administration Nausea And Vomiting Phenol 1 spray 09/02/19 04:29 09/02/19 06:27 Chloraseptic MM 1 spray PRN PRN Administration Sore Throat Pravastatin Sodium 20 mg 08/24/19 22:00 09/01/19 22:25 Pravachol PO 20 mg QHS WILL Administration Sodium Chloride 10 ml 08/24/19 22:00 09/02/19 09:41 Sodium Chloride Flush Syringe 10 Ml IV Not Given BID WILL Sodium Chloride 10 ml 08/24/19 14:55 09/02/19 04:23 Sodium Chloride Flush Syringe 10 Ml IV 10 ml PRN PRN Administration LINE FLUSH Thiamine HCl 100 mg 08/24/19 13:00 09/01/19 10:02 Vitamin B-1 PO 100 mg QDAY WILL Administration Zolpidem Tartrate 5 mg 08/27/19 23:42 08/30/19 21:35 Ambien PO 5 mg QHS PRN Administration Sleep
[2019-09-02] MEDS ORDERED: SODIUM CHLORIDE*PRIMING MACHINE ONLY FOR DIALYSIS MC ONE (12:54)
[2019-09-02] MEDS: levETIRAcetam 500 MG TAB PO SCH ×2 (14:36→22:35)
[2019-09-02] MEDS: FOLIC ACID 1 MG TAB PO SCH (14:36)
[2019-09-02] MEDS: THIAMINE 100 MG TAB PO SCH (14:37)
--- NOTE | 2019-09-02 17:07 | Progress Note ---
Assessment and Plan Assessment and plan: Acute respiratory failure due to CHF exacerbation Cont. Supplemental Oxygen Currentlyoff BIPAP Acute on chronic systolic CHF Lasix iv given in ED consulted Cardiology, following Patient states he has been non-compliant, did not fill prescriptions after discharge about 2 weeks ago ESRD Previously with Acute on chronic kidney disease Consulted Nephrology, following Nephrology recommended initiating hemodialysis Started on hemodialysis 08/28 Will need outpatient hemodialysis No acute indication for HD today HD tomorrow ordered Assess need for HD on daily basis Epogen dosing for anemia management S/p Right IJ Perm catheter placement by Dr Murphy on 08/27/19 Consulted CM for outpatient dialysis placement at [facility] in [place], [place] to be discharged from renal standpoint once secured Hypertensive emergency he was started on Nitro drip resume home meds and hopefully taper of Nitro drip medical non-compliance He states he did not fill any of prescriptions after discharge from here 2 weeks ago. I counseled him on importance of taking meds and following with Physician Seizure disorder resumed keppra seizure precautions Full code status - Patient Problems (1) CHF exacerbation Current Visit: Yes Status: Acute Qualifiers: (2) COPD exacerbation Current Visit: Yes Status: Acute (3) Cardiorenal syndrome with renal failure Current Visit: Yes Status: Acute (4) ARF (acute renal failure) with tubular necrosis Current Visit: No Status: Acute (5) Acute on chronic systolic (congestive) heart failure Current Visit: No Status: Acute (6) Acute renal failure superimposed on chronic kidney disease Current Visit: No Status: Acute Qualifiers: Acute renal failure type: unspecified Chronic kidney disease stage: unspecified stage Qualified Code(s): N17.9 - Acute kidney failure, unspecified; N18.9 - Chronic kidney disease, unspecified (7) HTN (hypertension) Current Visit: No Status: Acute Qualifiers: Hypertension type: unspecified Qualified Code(s): I10 - Essential (primary) hypertension (8) Hyperkalemia Current Visit: No Status: Acute (9) Hypertension associated with stage 3 chronic kidney disease due to type 2 diabetes mellitus Current Visit: No Status: Acute (10) Respiratory failure Current Visit: No Status: Acute Qualifiers: Chronicity: acute Respiratory failure complication: hypoxia Qualified Code(s): J96.01 - Acute respiratory failure with hypoxia History Interval history: Patient is 58 yo with hypertension, chronic systolic CHF, i0vginzm disorder. He presents with shortness of breath and leg swelling. He denies chest pain. he was just discharged from here exactly 2 weeks ago on 08/10/19. he states he did not fill any of prescriptions including lasix. In ED, he was diagnosed with acute respiratory failure, was put on BIPAP. CXR revealed pulmonary edema, CHF exacerbation. He was given Lasix iv. Also BP was 196/127 so was started on nitroglycerin drip. BP improved, drip discontinued and he was admitted to Telemetry. Renal function remained poor, he was diagnosed with ESRD therefor dialysis catheter placed and he was started on dialysis 08/28. He will need outpatient hemodialysis arrangement. Hospitalist Physical - Constitutional Vitals: Temp Pulse Resp BP Pulse Ox 98.2 F 68 16 128/70 96 09/02/19 13:00 09/02/19 15:14 09/02/19 14:00 09/02/19 15:14 09/02/19 14:00 General appearance: Present: no acute distress, well-nourished - EENT Eyes: Present: PERRL, EOM intact ENT: hearing intact, clear oral mucosa, dentition normal - Neck Neck: Present: supple, normal ROM - Respiratory Respiratory effort: normal Respiratory: bilateral: CTA - Cardiovascular Rhythm: regular Heart Sounds: Present: S1 & S2. Absent: gallop, rub - Extremities Extremities: no ischemia, No edema, Full ROM - Abdominal General gastrointestinal: soft, non-tender, non-distended, normal bowel sounds - Integumentary Integumentary: Present: clear, warm, dry - Neurologic Neurologic: CNII-XII intact, moves all extremities Results - Labs CBC & Chem 7: 08/26/19 04:36 09/02/19 05:03 Labs: Laboratory Last Values WBC 3.9 K/mm3 (4.5-11.0) L 08/26/19 04:36 RBC 2.35 M/mm3 (3.65-5.03) L 08/26/19 04:36 Hgb 7.8 gm/dl (11.8-15.2) L 08/26/19 04:36 Hct 23.5 % (35.5-45.6) L 08/26/19 04:36 MCV 100 fl (84-94) H 08/26/19 04:36 MCH 33 pg (28-32) H 08/26/19 04:36 MCHC 33 % (32-34) 08/26/19 04:36 RDW 16.6 % (13.2-15.2) H 08/26/19 04:36 Plt Count 223 K/mm3 (140-440) 08/26/19 04:36 Lymph % (Auto) 7.4 % (13.4-35.0) L 08/26/19 04:36 [place] % (Auto) 5.3 % (0.0-7.3) 08/26/19 04:36 Eos % (Auto) 1.8 % (0.0-4.3) 08/26/19 04:36 Baso % (Auto) 0.7 % (0.0-1.8) 08/26/19 04:36 Lymph # 0.3 K/mm3 (1.2-5.4) L 08/26/19 04:36 [place] # 0.2 K/mm3 (0.0-0.8) 08/26/19 04:36 Eos # 0.1 K/mm3 (0.0-0.4) 08/26/19 04:36 Baso # 0.0 K/mm3 (0.0-0.1) 08/26/19 04:36 Seg Neutrophils % 84.8 % (40.0-70.0) H 08/26/19 04:36 Seg Neutrophils # 3.3 K/mm3 (1.8-7.7) 08/26/19 04:36 PT 13.8 Sec. (12.2-14.9) 08/24/19 06:30 INR 1.07 (0.87-1.13) 08/24/19 06:30 APTT 27.8 Sec. (24.2-36.6) 08/24/19 06:30 Sodium 140 mmol/L (137-145) 09/02/19 05:03 Potassium 4.8 mmol/L (3.6-5.0) 09/02/19 05:03 Chloride 105.2 mmol/L (98-107) 09/02/19 05:03 Carbon Dioxide 26 mmol/L (22-30) 09/02/19 05:03 Anion Gap 14 mmol/L 09/02/19 05:03 BUN 37 mg/dL (9-20) H 09/02/19 05:03 Creatinine 4.4 mg/dL (0.8-1.5) H 09/02/19 05:03 Estimated GFR 17 ml/min 09/02/19 05:03 BUN/Creatinine Ratio 8 % 09/02/19 05:03 Glucose 87 mg/dL (75-100) 09/02/19 05:03 Calcium 8.6 mg/dL (8.4-10.2) 09/02/19 05:03 Phosphorus 5.00 mg/dL (2.5-4.5) H 08/26/19 04:36 Magnesium 1.50 mg/dL (1.7-2.3) L 08/24/19 06:30 Total Bilirubin < 0.20 mg/dL (0.1-1.2) 08/24/19 06:30 AST 25 units/L (5-40) 08/24/19 06:30 ALT 45 units/L (7-56) 08/24/19 06:30 Alkaline Phosphatase 165 units/L (35-129) H 08/24/19 06:30 Total Creatine Kinase 154 units/L (55-170) 08/24/19 06:30 Troponin T 0.031 ng/mL (0.00-0.029) H 08/24/19 06:30 Total Protein 6.5 g/dL (6.3-8.2) 08/24/19 06:30 Albumin 3.7 g/dL (3.9-5) L 08/24/19 06:30 Albumin/Globulin Ratio 1.3 % 08/24/19 06:30 Triglycerides 65 mg/dL (2-149) 08/24/19 06:30 Cholesterol 127 mg/dL (50-199) 08/24/19 06:30 LDL Cholesterol Direct 69 mg/dL (50-130) 08/24/19 06:30 HDL Cholesterol 53 mg/dL (40-59) 08/24/19 06:30 Cholesterol/HDL Ratio 2.39 % 08/24/19 06:30 Urine Color Yellow (Yellow) 08/24/19 Unknown Urine Turbidity Clear (Clear) 08/24/19 Unknown Urine pH 5.0 (5.0-7.0) 08/24/19 Unknown Ur Specific [place] 1.014 (1.003-1.030) 08/24/19 Unknown Urine Protein >2000 mg dl mg/dL (Negative) 08/24/19 Unknown Urine Glucose (UA) 50 mg/dL (Negative) 08/24/19 Unknown Urine Ketones Neg mg/dL (Negative) 08/24/19 Unknown Urine Blood Sm (Negative) 08/24/19 Unknown Urine Nitrite Neg (Negative) 08/24/19 Unknown Urine Bilirubin Neg (Negative) 08/24/19 Unknown Urine Urobilinogen < 2.0 mg/dL (<2.0) 08/24/19 Unknown Ur Leukocyte Esterase Neg (Negative) 08/24/19 Unknown Urine WBC (Auto) 2.0 /HPF (0.0-6.0) 08/24/19 Unknown Urine RBC (Auto) 2.0 /HPF (0.0-6.0) 08/24/19 Unknown Urine Creatinine 65.7 mg/dL (0.1-20.0) H 08/25/19 22:10 Protein/Creatinin Ratio 1.31 08/25/19 22:10 Urine Sodium 81 mmol/L 08/25/19 22:10 Urine Total Protein 86 mg/dL (5-11.8) H 08/25/19 22:10 Hepatitis A IgM Ab Non-reactive (NonReactive) 08/26/19 10:12 Hep Bs Antigen Non-reactive (Negative) 08/26/19 10:12 Hep B Core IgM Ab Non-reactive (NonReactive) 08/26/19 10:12 Hepatitis C Antibody Non-reactive (NonReactive) 08/26/19 10:12 Active Medications - Current Medications Current Medications: Generic Name Dose Route Start Last Admin Trade Name Freq PRN Reason Stop Dose Admin Acetaminophen 650 mg 08/24/19 14:55 Tylenol PO Q4H PRN Pain MILD(1-3)/Fever >100.5/TORIBIO Acetaminophen/Hydrocodone Bitart 1 each 08/25/19 15:01 09/02/19 08:22 [place] 5/325 PO 1 each Q6H PRN Administration Pain, Moderate (4-6) Albuterol 2.5 mg 08/24/19 14:55 Proventil IH Q4HRT PRN Shortness Of Breath Aspirin 81 mg 08/25/19 10:00 09/02/19 09:39 Baby Aspirin PO Not Given QDAY WILL Carvedilol 25 mg 08/24/19 10:00 09/02/19 09:39 Coreg PO Not Given BID [facility] Epoetin Leandro 10,000 unit 08/28/19 13:00 08/31/19 13:12 Procrit SUB-Q 10,000 unit EDIE [facility] Administration Folic Acid 1 mg 08/24/19 13:00 09/02/19 14:36 Folvite PO 1 mg QDAY [facility] Administration Furosemide 40 mg 08/25/19 10:00 09/02/19 09:40 Lasix PO Not Given QDAY [facility] Heparin Sodium (Porcine) 5,000 unit 08/24/19 22:00 09/02/19 09:40 Heparin SUB-Q Not Given Q12HR [facility] Hydralazine HCl 50 mg 08/24/19 09:00 09/02/19 15:14 Apresoline PO Not Given Q8HR [facility] Hydralazine HCl 20 mg 08/24/19 15:17 Apresoline IV Q4HR PRN SBP>170 or DBP>110 Sodium Chloride 100 mls @ 999 mls/hr 08/29/19 13:22 Nacl 0.9% IV EDIE PRN Hypotension Isosorbide Dinitrate 10 mg 08/26/19 12:00 09/02/19 09:40 Isordil Titradose PO Not Given BID [facility] Levetiracetam 750 mg 08/24/19 10:00 09/02/19 14:36 Keppra PO 750 mg BID [facility] Administration Morphine Sulfate 2 mg 08/24/19 14:55 09/02/19 04:20 Morphine IV 2 mg Q4H PRN Administration Pain, Moderate (4-6) Nifedipine 60 mg 08/24/19 13:00 09/02/19 09:41 Procardia Xl PO Not Given QDAY [facility] Ondansetron HCl 4 mg 08/24/19 14:55 08/25/19 15:27 Zofran IV 4 mg Q8H PRN Administration Nausea And Vomiting Phenol 1 spray 09/02/19 04:29 09/02/19 06:27 Chloraseptic MM 1 spray PRN PRN Administration Sore Throat Pravastatin Sodium 20 mg 08/24/19 22:00 09/01/19 22:25 Pravachol PO 20 mg QHS [facility] Administration Sodium Chloride 10 ml 08/24/19 22:00 09/02/19 09:41 Sodium Chloride Flush Syringe 10 Ml IV Not Given BID WILL Sodium Chloride 10 ml 08/24/19 14:55 09/02/19 04:23 Sodium Chloride Flush Syringe 10 Ml IV 10 ml PRN PRN Administration LINE FLUSH Thiamine HCl 100 mg 08/24/19 13:00 09/02/19 14:37 Vitamin B-1 PO 100 mg QDAY [facility] Administration Zolpidem Tartrate 5 mg 08/27/19 23:42 08/30/19 21:35 Ambien PO 5 mg QHS PRN Administration Sleep Nutrition/Malnutrition Assess - Dietary Evaluation Nutrition/Malnutrition Findings: Nutrition Notes Start: 08/31/19 14:12 Freq: Status: Active Protocol: Document 08/31/19 14:12 CT (Rec: 08/31/19 14:27 CT [id number]) Co-Sign 08/31/19 14:12 LP Nutrition Notes Need for Assessment generated from: LOS,Education Initial or Follow up Assessment Current Diagnosis Hypertension,Heart Failure Other Pertinent Diagnosis ESRD on HD, pulmonary edema, medical noncompliance, seizure disorder Current Diet Renal Labs/Tests BUN 45 Creatinine 4.9 Pertinent Medications Keppra Lasix Height 5 ft 7 in Weight 74 kg Usual Body Weight 68.039 kg [place] Body Weight (kg) 67.27 BMI 25.5 Intake Prior to Admission Good Weight Status Overweight Subjective/Other Information LOS assessment. Pt was eating his lunch at time of visit and requested more, was able to locate RN to get pt another tray. Pt was asked if he wanted double portions and he said yes. Pt is eating 100% of meals and has a good appetite. Education on renal diet was given to pt. Pt stated that he can't read d/t not having reading glasses. Burn Absent Trauma Absent GI Symptoms None Current % PO Good (75-100%) Minimum of two criteria No physical signs of malnutrition #1 Nutrition Diagnosis Food and nutrition-related knowledge deficit Etiology no previous knowledge on renal diet As Evidenced by Signs and Symptoms pt acceptance of renal diet discussion and handout Is patient on ventilator? No Is Patient Ambulatory and/or Out of Bed Yes REE-([facility]-ambulatory/OOB) [ 1974.219 [id number]] Calculation Used for Recommendations [facility] Additional Notes Protein: >89 g/kg/day (>1.2 g/ kg/day) Fluid: urine output + 1000 ml /day Nutrition Intervention Change Diet Order: Continue Renal with double portions Teaching Recipient Patient Learning Readiness Fair Teaching Methods Discussion,Handout Response to Teaching Reinforcement needed Education Handouts Provided Chronic Kidney Disease Nutrition Barriers to Learning Visual,Motivation RD phone number provided Yes Patient aware of follow up options Yes Goal #1 Acceptance and understanding of diet education Revisit per MD consult or patient Sign Off request:
--- NOTE | 2019-09-02 17:10 | Progress Note ---
Assessment and Plan Assessment and plan: Acute respiratory failure due to CHF exacerbation Cont. Supplemental Oxygen Currentlyoff BIPAP Acute on chronic systolic CHF Lasix iv given in ED consulted Cardiology, following Patient states he has been non-compliant, did not fill prescriptions after discharge about 2 weeks ago ESRD Previously with Acute on chronic kidney disease Consulted Nephrology, following Nephrology recommended initiating hemodialysis Started on hemodialysis 08/28 Will need outpatient hemodialysis No acute indication for HD today HD tomorrow ordered Assess need for HD on daily basis Epogen dosing for anemia management S/p Right IJ Perm catheter placement by Dr Murphy on 08/27/19 Consulted CM for outpatient dialysis placement at [facility] in [place], [place] to be discharged from renal standpoint once secured Hypertensive emergency he was started on Nitro drip resume home meds and hopefully taper of Nitro drip medical non-compliance He states he did not fill any of prescriptions after discharge from here 2 weeks ago. I counseled him on importance of taking meds and following with Physician Seizure disorder resumed keppra seizure precautions Full code status - Patient Problems (1) CHF exacerbation Current Visit: Yes Status: Acute Qualifiers: (2) COPD exacerbation Current Visit: Yes Status: Acute (3) Cardiorenal syndrome with renal failure Current Visit: Yes Status: Acute (4) ARF (acute renal failure) with tubular necrosis Current Visit: No Status: Acute (5) Acute on chronic systolic (congestive) heart failure Current Visit: No Status: Acute (6) Acute renal failure superimposed on chronic kidney disease Current Visit: No Status: Acute Qualifiers: Acute renal failure type: unspecified Chronic kidney disease stage: unspecified stage Qualified Code(s): N17.9 - Acute kidney failure, unspecified; N18.9 - Chronic kidney disease, unspecified (7) HTN (hypertension) Current Visit: No Status: Acute Qualifiers: Hypertension type: unspecified Qualified Code(s): I10 - Essential (primary) hypertension (8) Hyperkalemia Current Visit: No Status: Acute (9) Hypertension associated with stage 3 chronic kidney disease due to type 2 diabetes mellitus Current Visit: No Status: Acute (10) Respiratory failure Current Visit: No Status: Acute Qualifiers: Chronicity: acute Respiratory failure complication: hypoxia Qualified Code(s): J96.01 - Acute respiratory failure with hypoxia History Interval history: Patient is 58 yo with hypertension, chronic systolic CHF, [id number] disorder. He presents with shortness of breath and leg swelling. He denies chest pain. he was just discharged from here exactly 2 weeks ago on 08/10/19. he states he did not fill any of prescriptions including lasix. In ED, he was diagnosed with acute respiratory failure, was put on BIPAP. CXR revealed pulmonary edema, CHF exacerbation. He was given Lasix iv. Also BP was 196/127 so was started on nitroglycerin drip. BP improved, drip discontinued and he was admitted to Telemetry. Renal function remained poor, he was diagnosed with ESRD therefor dialysis catheter placed and he was started on dialysis 08/28. He will need outpatient hemodialysis arrangement. Hospitalist Physical - Constitutional Vitals: Temp Pulse Resp BP Pulse Ox 98.0 F 76 18 123/81 96 09/02/19 17:06 09/02/19 17:06 09/02/19 17:06 09/02/19 17:06 09/02/19 17:06 General appearance: Present: no acute distress, well-nourished - EENT Eyes: Present: PERRL, EOM intact ENT: hearing intact, clear oral mucosa, dentition normal - Neck Neck: Present: supple, normal ROM - Respiratory Respiratory effort: normal Respiratory: bilateral: CTA - Cardiovascular Rhythm: regular Heart Sounds: Present: S1 & S2. Absent: gallop, rub - Extremities Extremities: no ischemia, No edema, Full ROM - Abdominal General gastrointestinal: soft, non-tender, non-distended, normal bowel sounds - Integumentary Integumentary: Present: clear, warm, dry - Neurologic Neurologic: CNII-XII intact, moves all extremities Results - Labs CBC & Chem 7: 08/26/19 04:36 09/02/19 05:03 Labs: Laboratory Last Values WBC 3.9 K/mm3 (4.5-11.0) L 08/26/19 04:36 RBC 2.35 M/mm3 (3.65-5.03) L 08/26/19 04:36 Hgb 7.8 gm/dl (11.8-15.2) L 08/26/19 04:36 Hct 23.5 % (35.5-45.6) L 08/26/19 04:36 MCV 100 fl (84-94) H 08/26/19 04:36 MCH 33 pg (28-32) H 08/26/19 04:36 MCHC 33 % (32-34) 08/26/19 04:36 RDW 16.6 % (13.2-15.2) H 08/26/19 04:36 Plt Count 223 K/mm3 (140-440) 08/26/19 04:36 Lymph % (Auto) 7.4 % (13.4-35.0) L 08/26/19 04:36 Snyder % (Auto) 5.3 % (0.0-7.3) 08/26/19 04:36 Eos % (Auto) 1.8 % (0.0-4.3) 08/26/19 04:36 Baso % (Auto) 0.7 % (0.0-1.8) 08/26/19 04:36 Lymph # 0.3 K/mm3 (1.2-5.4) L 08/26/19 04:36 Snyder # 0.2 K/mm3 (0.0-0.8) 08/26/19 04:36 Eos # 0.1 K/mm3 (0.0-0.4) 08/26/19 04:36 Baso # 0.0 K/mm3 (0.0-0.1) 08/26/19 04:36 Seg Neutrophils % 84.8 % (40.0-70.0) H 08/26/19 04:36 Seg Neutrophils # 3.3 K/mm3 (1.8-7.7) 08/26/19 04:36 PT 13.8 Sec. (12.2-14.9) 08/24/19 06:30 INR 1.07 (0.87-1.13) 08/24/19 06:30 APTT 27.8 Sec. (24.2-36.6) 08/24/19 06:30 Sodium 140 mmol/L (137-145) 09/02/19 05:03 Potassium 4.8 mmol/L (3.6-5.0) 09/02/19 05:03 Chloride 105.2 mmol/L (98-107) 09/02/19 05:03 Carbon Dioxide 26 mmol/L (22-30) 09/02/19 05:03 Anion Gap 14 mmol/L 09/02/19 05:03 BUN 37 mg/dL (9-20) H 09/02/19 05:03 Creatinine 4.4 mg/dL (0.8-1.5) H 09/02/19 05:03 Estimated GFR 17 ml/min 09/02/19 05:03 BUN/Creatinine Ratio 8 % 09/02/19 05:03 Glucose 87 mg/dL (75-100) 09/02/19 05:03 Calcium 8.6 mg/dL (8.4-10.2) 09/02/19 05:03 Phosphorus 5.00 mg/dL (2.5-4.5) H 08/26/19 04:36 Magnesium 1.50 mg/dL (1.7-2.3) L 08/24/19 06:30 Total Bilirubin < 0.20 mg/dL (0.1-1.2) 08/24/19 06:30 AST 25 units/L (5-40) 08/24/19 06:30 ALT 45 units/L (7-56) 08/24/19 06:30 Alkaline Phosphatase 165 units/L (35-129) H 08/24/19 06:30 Total Creatine Kinase 154 units/L (55-170) 08/24/19 06:30 Troponin T 0.031 ng/mL (0.00-0.029) H 08/24/19 06:30 Total Protein 6.5 g/dL (6.3-8.2) 08/24/19 06:30 Albumin 3.7 g/dL (3.9-5) L 08/24/19 06:30 Albumin/Globulin Ratio 1.3 % 08/24/19 06:30 Triglycerides 65 mg/dL (2-149) 08/24/19 06:30 Cholesterol 127 mg/dL (50-199) 08/24/19 06:30 LDL Cholesterol Direct 69 mg/dL (50-130) 08/24/19 06:30 HDL Cholesterol 53 mg/dL (40-59) 08/24/19 06:30 Cholesterol/HDL Ratio 2.39 % 08/24/19 06:30 Urine Color Yellow (Yellow) 08/24/19 Unknown Urine Turbidity Clear (Clear) 08/24/19 Unknown Urine pH 5.0 (5.0-7.0) 08/24/19 Unknown Ur Specific Carlton 1.014 (1.003-1.030) 08/24/19 Unknown Urine Protein >2000 mg dl mg/dL (Negative) 08/24/19 Unknown Urine Glucose (UA) 50 mg/dL (Negative) 08/24/19 Unknown Urine Ketones Neg mg/dL (Negative) 08/24/19 Unknown Urine Blood Sm (Negative) 08/24/19 Unknown Urine Nitrite Neg (Negative) 08/24/19 Unknown Urine Bilirubin Neg (Negative) 08/24/19 Unknown Urine Urobilinogen < 2.0 mg/dL (<2.0) 08/24/19 Unknown Ur Leukocyte Esterase Neg (Negative) 08/24/19 Unknown Urine WBC (Auto) 2.0 /HPF (0.0-6.0) 08/24/19 Unknown Urine RBC (Auto) 2.0 /HPF (0.0-6.0) 08/24/19 Unknown Urine Creatinine 65.7 mg/dL (0.1-20.0) H 08/25/19 22:10 Protein/Creatinin Ratio 1.31 08/25/19 22:10 Urine Sodium 81 mmol/L 08/25/19 22:10 Urine Total Protein 86 mg/dL (5-11.8) H 08/25/19 22:10 Hepatitis A IgM Ab Non-reactive (NonReactive) 08/26/19 10:12 Hep Bs Antigen Non-reactive (Negative) 08/26/19 10:12 Hep B Core IgM Ab Non-reactive (NonReactive) 08/26/19 10:12 Hepatitis C Antibody Non-reactive (NonReactive) 08/26/19 10:12 Active Medications - Current Medications Current Medications: Generic Name Dose Route Start Last Admin Trade Name Freq PRN Reason Stop Dose Admin Acetaminophen 650 mg 08/24/19 14:55 Tylenol PO Q4H PRN Pain MILD(1-3)/Fever >100.5/TORIBIO Acetaminophen/Hydrocodone Bitart 1 each 08/25/19 15:01 09/02/19 08:22 Rudolph 5/325 PO 1 each Q6H PRN Administration Pain, Moderate (4-6) Albuterol 2.5 mg 08/24/19 14:55 Proventil IH Q4HRT PRN Shortness Of Breath Aspirin 81 mg 08/25/19 10:00 09/02/19 09:39 Baby Aspirin PO Not Given QDAY WILL Carvedilol 25 mg 08/24/19 10:00 09/02/19 09:39 Coreg PO Not Given BID [facility] Epoetin Leandro 10,000 unit 08/28/19 13:00 08/31/19 13:12 Procrit SUB-Q 10,000 unit EDIE [facility] Administration Folic Acid 1 mg 08/24/19 13:00 09/02/19 14:36 Folvite PO 1 mg QDAY [facility] Administration Furosemide 40 mg 08/25/19 10:00 09/02/19 09:40 Lasix PO Not Given QDAY [facility] Heparin Sodium (Porcine) 5,000 unit 08/24/19 22:00 09/02/19 09:40 Heparin SUB-Q Not Given Q12HR [facility] Hydralazine HCl 50 mg 08/24/19 09:00 09/02/19 15:14 Apresoline PO Not Given Q8HR [facility] Hydralazine HCl 20 mg 08/24/19 15:17 Apresoline IV Q4HR PRN SBP>170 or DBP>110 Sodium Chloride 100 mls @ 999 mls/hr 08/29/19 13:22 Nacl 0.9% IV EDIE PRN Hypotension Isosorbide Dinitrate 10 mg 08/26/19 12:00 09/02/19 09:40 Isordil Titradose PO Not Given BID [facility] Levetiracetam 750 mg 08/24/19 10:00 09/02/19 14:36 Keppra PO 750 mg BID [facility] Administration Morphine Sulfate 2 mg 08/24/19 14:55 09/02/19 04:20 Morphine IV 2 mg Q4H PRN Administration Pain, Moderate (4-6) Nifedipine 60 mg 08/24/19 13:00 09/02/19 09:41 Procardia Xl PO Not Given QDAY [facility] Ondansetron HCl 4 mg 08/24/19 14:55 08/25/19 15:27 Zofran IV 4 mg Q8H PRN Administration Nausea And Vomiting Phenol 1 spray 09/02/19 04:29 09/02/19 06:27 Chloraseptic MM 1 spray PRN PRN Administration Sore Throat Pravastatin Sodium 20 mg 08/24/19 22:00 09/01/19 22:25 Pravachol PO 20 mg QHS [facility] Administration Sodium Chloride 10 ml 08/24/19 22:00 09/02/19 09:41 Sodium Chloride Flush Syringe 10 Ml IV Not Given BID WILL Sodium Chloride 10 ml 08/24/19 14:55 09/02/19 04:23 Sodium Chloride Flush Syringe 10 Ml IV 10 ml PRN PRN Administration LINE FLUSH Thiamine HCl 100 mg 08/24/19 13:00 09/02/19 14:37 Vitamin B-1 PO 100 mg QDAY WILL Administration Zolpidem Tartrate 5 mg 08/27/19 23:42 08/30/19 21:35 Ambien PO 5 mg QHS PRN Administration Sleep Nutrition/Malnutrition Assess - Dietary Evaluation Nutrition/Malnutrition Findings: Nutrition Notes Start: 08/31/19 14:12 Freq: Status: Active Protocol: Document 08/31/19 14:12 CT (Rec: 08/31/19 14:27 CT [id number]) Co-Sign 08/31/19 14:12 LP Nutrition Notes Need for Assessment generated from: LOS,Education Initial or Follow up Assessment Current Diagnosis Hypertension,Heart Failure Other Pertinent Diagnosis ESRD on HD, pulmonary edema, medical noncompliance, seizure disorder Current Diet Renal Labs/Tests BUN 45 Creatinine 4.9 Pertinent Medications Keppra Lasix Height 5 ft 7 in Weight 74 kg Usual Body Weight 68.039 kg [place] Body Weight (kg) 67.27 BMI 25.5 Intake Prior to Admission Good Weight Status Overweight Subjective/Other Information LOS assessment. Pt was eating his lunch at time of visit and requested more, was able to locate RN to get pt another tray. Pt was asked if he wanted double portions and he said yes. Pt is eating 100% of meals and has a good appetite. Education on renal diet was given to pt. Pt stated that he can't read d/t not having reading glasses. Burn Absent Trauma Absent GI Symptoms None Current % PO Good (75-100%) Minimum of two criteria No physical signs of malnutrition #1 Nutrition Diagnosis Food and nutrition-related knowledge deficit Etiology no previous knowledge on renal diet As Evidenced by Signs and Symptoms pt acceptance of renal diet discussion and handout Is patient on ventilator? No Is Patient Ambulatory and/or Out of Bed Yes REE-([facility]-ambulatory/OOB) [ 1974.219 [id number]] Calculation Used for Recommendations [facility] Additional Notes Protein: >89 g/kg/day (>1.2 g/ kg/day) Fluid: urine output + 1000 ml /day Nutrition Intervention Change Diet Order: Continue Renal with double portions Teaching Recipient Patient Learning Readiness Fair Teaching Methods Discussion,Handout Response to Teaching Reinforcement needed Education Handouts Provided Chronic Kidney Disease Nutrition Barriers to Learning Visual,Motivation RD phone number provided Yes Patient aware of follow up options Yes Goal #1 Acceptance and understanding of diet education Revisit per MD consult or patient Sign Off request:
[2019-09-02] MEDS: PRAVASTATIN 20 MG TAB PO SCH (22:35)
[2019-09-03] MEDS: hydrALAZINE 25 MG TAB PO SCH ×3 (06:05→21:08)
[2019-09-03 07:23] LABS: Calcium 8.5 mg/dL (8.4-10.2)
[2019-09-03] MEDS: HYDROcodone/ACETAMINOPHEN 5-325 MG TAB PO PRN ×2 (10:20→16:50)
[2019-09-03] MEDS: FUROSEMIDE 40 MG TAB PO SCH (10:51)
[2019-09-03] MEDS: ISOSORBIDE DINITRATE 10 MG TAB PO SCH ×2 (10:51→21:08)
[2019-09-03] MEDS: carvediloL 25 MG TAB PO SCH ×2 (10:52→21:08)
[2019-09-03] MEDS: THIAMINE 100 MG TAB PO SCH (10:52)
[2019-09-03] MEDS: levETIRAcetam 500 MG TAB PO SCH ×2 (10:52→21:08)
[2019-09-03] MEDS: ASPIRIN 81 MG TAB CHEW PO SCH (10:52)
[2019-09-03] MEDS: NIFEdipine XL 60 MG TAB PO SCH (10:53)
[2019-09-03] MEDS: FOLIC ACID 1 MG TAB PO SCH (10:53)
[2019-09-03] MEDS: HEPARIN 5,000 UNIT/1 ML VIAL SUB-Q SCH ×2 (10:53→21:08)
--- NOTE | 2019-09-03 12:02 | Progress Note ---
Assessment and Plan Assessment and plan: Acute respiratory failure due to CHF exacerbation Cont. Supplemental Oxygen Currentlyoff BIPAP Acute on chronic systolic CHF Lasix iv given in ED consulted Cardiology, following Patient states he has been non-compliant, did not fill prescriptions after discharge about 2 weeks ago ESRD Previously with Acute on chronic kidney disease Consulted Nephrology, following Nephrology recommended initiating hemodialysis Started on hemodialysis 08/28 Will need outpatient hemodialysis No acute indication for HD today HD tomorrow ordered Assess need for HD on daily basis Epogen dosing for anemia management S/p Right IJ Perm catheter placement by Dr Murphy on 08/27/19 Consulted CM for outpatient dialysis placement at [facility] in [place], [place] to be discharged from renal standpoint once secured Hypertensive emergency he was started on Nitro drip resume home meds and hopefully taper of Nitro drip medical non-compliance He states he did not fill any of prescriptions after discharge from here 2 weeks ago. I counseled him on importance of taking meds and following with Physician Seizure disorder resumed keppra seizure precautions Full code status Disposition. Await outpatient hemodialysis. - Patient Problems (1) CHF exacerbation Current Visit: Yes Status: Acute Qualifiers: (2) COPD exacerbation Current Visit: Yes Status: Acute (3) Cardiorenal syndrome with renal failure Current Visit: Yes Status: Acute (4) ARF (acute renal failure) with tubular necrosis Current Visit: No Status: Acute (5) Acute on chronic systolic (congestive) heart failure Current Visit: No Status: Acute (6) Acute renal failure superimposed on chronic kidney disease Current Visit: No Status: Acute Qualifiers: Acute renal failure type: unspecified Chronic kidney disease stage: unspecified stage Qualified Code(s): N17.9 - Acute kidney failure, unspecified; N18.9 - Chronic kidney disease, unspecified (7) HTN (hypertension) Current Visit: No Status: Acute Qualifiers: Hypertension type: unspecified Qualified Code(s): I10 - Essential (primary) hypertension (8) Hyperkalemia Current Visit: No Status: Acute (9) Hypertension associated with stage 3 chronic kidney disease due to type 2 diabetes mellitus Current Visit: No Status: Acute (10) Respiratory failure Current Visit: No Status: Acute Qualifiers: Chronicity: acute Respiratory failure complication: hypoxia Qualified Code(s): J96.01 - Acute respiratory failure with hypoxia History Interval history: Patient is 58 yo with hypertension, chronic systolic CHF, [id number] disorder. He presents with shortness of breath and leg swelling. He denies chest pain. he was just discharged from here exactly 2 weeks ago on 08/10/19. he states he did not fill any of prescriptions including lasix. In ED, he was diagnosed with acute respiratory failure, was put on BIPAP. CXR revealed pulmonary edema, CHF exacerbation. He was given Lasix iv. Also BP was 196/127 so was started on nitroglycerin drip. BP improved, drip discontinued and he was admitted to Telemetry. Renal function remained poor, he was diagnosed with ESRD therefor dialysis catheter placed and he was started on dialysis 08/28. He will need outpatient hemodialysis arrangement. Hospitalist Physical - Constitutional Vitals: Temp Pulse Resp BP Pulse Ox 98.5 F 64 18 142/94 97 09/03/19 08:34 09/03/19 08:34 09/03/19 08:34 09/03/19 08:34 09/03/19 08:34 General appearance: Present: no acute distress, well-nourished - EENT Eyes: Present: PERRL, EOM intact ENT: hearing intact, clear oral mucosa, dentition normal - Neck Neck: Present: supple, normal ROM - Respiratory Respiratory effort: normal Respiratory: bilateral: CTA - Cardiovascular Rhythm: regular Heart Sounds: Present: S1 & S2. Absent: gallop, rub - Extremities Extremities: no ischemia, No edema, Full ROM - Abdominal General gastrointestinal: soft, non-tender, non-distended, normal bowel sounds - Integumentary Integumentary: Present: clear, warm, dry - Neurologic Neurologic: CNII-XII intact, moves all extremities Results - Labs CBC & Chem 7: 08/26/19 04:36 09/03/19 06:01 Labs: Laboratory Last Values WBC 3.9 K/mm3 (4.5-11.0) L 08/26/19 04:36 RBC 2.35 M/mm3 (3.65-5.03) L 08/26/19 04:36 Hgb 7.8 gm/dl (11.8-15.2) L 08/26/19 04:36 Hct 23.5 % (35.5-45.6) L 08/26/19 04:36 MCV 100 fl (84-94) H 08/26/19 04:36 MCH 33 pg (28-32) H 08/26/19 04:36 MCHC 33 % (32-34) 08/26/19 04:36 RDW 16.6 % (13.2-15.2) H 08/26/19 04:36 Plt Count 223 K/mm3 (140-440) 08/26/19 04:36 Lymph % (Auto) 7.4 % (13.4-35.0) L 08/26/19 04:36 [place] % (Auto) 5.3 % (0.0-7.3) 08/26/19 04:36 Eos % (Auto) 1.8 % (0.0-4.3) 08/26/19 04:36 Baso % (Auto) 0.7 % (0.0-1.8) 08/26/19 04:36 Lymph # 0.3 K/mm3 (1.2-5.4) L 08/26/19 04:36 [place] # 0.2 K/mm3 (0.0-0.8) 08/26/19 04:36 Eos # 0.1 K/mm3 (0.0-0.4) 08/26/19 04:36 Baso # 0.0 K/mm3 (0.0-0.1) 08/26/19 04:36 Seg Neutrophils % 84.8 % (40.0-70.0) H 08/26/19 04:36 Seg Neutrophils # 3.3 K/mm3 (1.8-7.7) 08/26/19 04:36 PT 13.8 Sec. (12.2-14.9) 08/24/19 06:30 INR 1.07 (0.87-1.13) 08/24/19 06:30 APTT 27.8 Sec. (24.2-36.6) 08/24/19 06:30 Sodium 140 mmol/L (137-145) 09/03/19 06:01 Potassium 4.3 mmol/L (3.6-5.0) 09/03/19 06:01 Chloride 100.3 mmol/L (98-107) 09/03/19 06:01 Carbon Dioxide 23 mmol/L (22-30) 09/03/19 06:01 Anion Gap 21 mmol/L 09/03/19 06:01 BUN 31 mg/dL (9-20) H 09/03/19 06:01 Creatinine 4.0 mg/dL (0.8-1.5) H 09/03/19 06:01 Estimated GFR 19 ml/min 09/03/19 06:01 BUN/Creatinine Ratio 8 % 09/03/19 06:01 Glucose 83 mg/dL (75-100) 09/03/19 06:01 Calcium 8.5 mg/dL (8.4-10.2) 09/03/19 06:01 Phosphorus 5.00 mg/dL (2.5-4.5) H 08/26/19 04:36 Magnesium 1.50 mg/dL (1.7-2.3) L 08/24/19 06:30 Total Bilirubin < 0.20 mg/dL (0.1-1.2) 08/24/19 06:30 AST 25 units/L (5-40) 08/24/19 06:30 ALT 45 units/L (7-56) 08/24/19 06:30 Alkaline Phosphatase 165 units/L (35-129) H 08/24/19 06:30 Total Creatine Kinase 154 units/L (55-170) 08/24/19 06:30 Troponin T 0.031 ng/mL (0.00-0.029) H 08/24/19 06:30 Total Protein 6.5 g/dL (6.3-8.2) 08/24/19 06:30 Albumin 3.7 g/dL (3.9-5) L 08/24/19 06:30 Albumin/Globulin Ratio 1.3 % 08/24/19 06:30 Triglycerides 65 mg/dL (2-149) 08/24/19 06:30 Cholesterol 127 mg/dL (50-199) 08/24/19 06:30 LDL Cholesterol Direct 69 mg/dL (50-130) 08/24/19 06:30 HDL Cholesterol 53 mg/dL (40-59) 08/24/19 06:30 Cholesterol/HDL Ratio 2.39 % 08/24/19 06:30 Urine Color Yellow (Yellow) 08/24/19 Unknown Urine Turbidity Clear (Clear) 08/24/19 Unknown Urine pH 5.0 (5.0-7.0) 08/24/19 Unknown Ur Specific [place] 1.014 (1.003-1.030) 08/24/19 Unknown Urine Protein >2000 mg dl mg/dL (Negative) 08/24/19 Unknown Urine Glucose (UA) 50 mg/dL (Negative) 08/24/19 Unknown Urine Ketones Neg mg/dL (Negative) 08/24/19 Unknown Urine Blood Sm (Negative) 08/24/19 Unknown Urine Nitrite Neg (Negative) 08/24/19 Unknown Urine Bilirubin Neg (Negative) 08/24/19 Unknown Urine Urobilinogen < 2.0 mg/dL (<2.0) 08/24/19 Unknown Ur Leukocyte Esterase Neg (Negative) 08/24/19 Unknown Urine WBC (Auto) 2.0 /HPF (0.0-6.0) 08/24/19 Unknown Urine RBC (Auto) 2.0 /HPF (0.0-6.0) 08/24/19 Unknown Urine Creatinine 65.7 mg/dL (0.1-20.0) H 08/25/19 22:10 Protein/Creatinin Ratio 1.31 08/25/19 22:10 Urine Sodium 81 mmol/L 08/25/19 22:10 Urine Total Protein 86 mg/dL (5-11.8) H 08/25/19 22:10 Hepatitis A IgM Ab Non-reactive (NonReactive) 08/26/19 10:12 Hep Bs Antigen Non-reactive (Negative) 08/26/19 10:12 Hep B Core IgM Ab Non-reactive (NonReactive) 08/26/19 10:12 Hepatitis C Antibody Non-reactive (NonReactive) 08/26/19 10:12 Active Medications - Current Medications Current Medications: Generic Name Dose Route Start Last Admin Trade Name Freq PRN Reason Stop Dose Admin Acetaminophen 650 mg 08/24/19 14:55 Tylenol PO Q4H PRN Pain MILD(1-3)/Fever >100.5/TORIBIO Acetaminophen/Hydrocodone Bitart 1 each 08/25/19 15:01 09/03/19 10:20 [place] 5/325 PO 1 each Q6H PRN Administration Pain, Moderate (4-6) Albuterol 2.5 mg 08/24/19 14:55 Proventil IH Q4HRT PRN Shortness Of Breath Aspirin 81 mg 08/25/19 10:00 09/03/19 10:52 Baby Aspirin PO 81 mg QDAY WILL Administration Carvedilol 25 mg 08/24/19 10:00 09/03/19 10:52 Coreg PO 25 mg BID WILL Administration Epoetin Leandro 10,000 unit 08/28/19 13:00 08/31/19 13:12 Procrit SUB-Q 10,000 unit EDIE WILL Administration Folic Acid 1 mg 08/24/19 13:00 09/03/19 10:53 Folvite PO 1 mg QDAY WILL Administration Furosemide 40 mg 08/25/19 10:00 09/03/19 10:51 Lasix PO 40 mg QDAY WILL Administration Heparin Sodium (Porcine) 5,000 unit 08/24/19 22:00 09/03/19 10:53 Heparin SUB-Q 5,000 unit Q12HR WILL Administration Hydralazine HCl 50 mg 08/24/19 09:00 09/03/19 06:05 Apresoline PO 50 mg Q8HR WILL Administration Hydralazine HCl 20 mg 08/24/19 15:17 Apresoline IV Q4HR PRN SBP>170 or DBP>110 Sodium Chloride 100 mls @ 999 mls/hr 08/29/19 13:22 Nacl 0.9% IV EDIE PRN Hypotension Isosorbide Dinitrate 10 mg 08/26/19 12:00 09/03/19 10:51 Isordil Titradose PO 10 mg BID WILL Administration Levetiracetam 750 mg 08/24/19 10:00 09/03/19 10:52 Keppra PO 750 mg BID WILL Administration Morphine Sulfate 2 mg 08/24/19 14:55 09/02/19 04:20 Morphine IV 2 mg Q4H PRN Administration Pain, Moderate (4-6) Nifedipine 60 mg 08/24/19 13:00 09/03/19 10:53 Procardia Xl PO 60 mg QDAY WILL Administration Ondansetron HCl 4 mg 08/24/19 14:55 08/25/19 15:27 Zofran IV 4 mg Q8H PRN Administration Nausea And Vomiting Phenol 1 spray 09/02/19 04:29 09/02/19 06:27 Chloraseptic MM 1 spray PRN PRN Administration Sore Throat Pravastatin Sodium 20 mg 08/24/19 22:00 09/02/19 22:35 Pravachol PO 20 mg QHS WILL Administration Sodium Chloride 10 ml 08/24/19 22:00 09/03/19 10:52 Sodium Chloride Flush Syringe 10 Ml IV 10 ml BID WILL Administration Sodium Chloride 10 ml 08/24/19 14:55 09/02/19 04:23 Sodium Chloride Flush Syringe 10 Ml IV 10 ml PRN PRN Administration LINE FLUSH Thiamine HCl 100 mg 08/24/19 13:00 09/03/19 10:52 Vitamin B-1 PO 100 mg QDAY WILL Administration Zolpidem Tartrate 5 mg 08/27/19 23:42 08/30/19 21:35 Ambien PO 5 mg QHS PRN Administration Sleep Nutrition/Malnutrition Assess - Dietary Evaluation Nutrition/Malnutrition Findings: Nutrition Notes Start: 08/31/19 14:12 Freq: Status: Active Protocol: Document 08/31/19 14:12 CT (Rec: 08/31/19 14:27 CT [id number]) Co-Sign 08/31/19 14:12 LP Nutrition Notes Need for Assessment generated from: LOS,Education Initial or Follow up Assessment Current Diagnosis Hypertension,Heart Failure Other Pertinent Diagnosis ESRD on HD, pulmonary edema, medical noncompliance, seizure disorder Current Diet Renal Labs/Tests BUN 45 Creatinine 4.9 Pertinent Medications Keppra Lasix Height 5 ft 7 in Weight 74 kg Usual Body Weight 68.039 kg [place] Body Weight (kg) 67.27 BMI 25.5 Intake Prior to Admission Good Weight Status Overweight Subjective/Other Information LOS assessment. Pt was eating his lunch at time of visit and requested more, was able to locate RN to get pt another tray. Pt was asked if he wanted double portions and he said yes. Pt is eating 100% of meals and has a good appetite. Education on renal diet was given to pt. Pt stated that he can't read d/t not having reading glasses. Burn Absent Trauma Absent GI Symptoms None Current % PO Good (75-100%) Minimum of two criteria No physical signs of malnutrition #1 Nutrition Diagnosis Food and nutrition-related knowledge deficit Etiology no previous knowledge on renal diet As Evidenced by Signs and Symptoms pt acceptance of renal diet discussion and handout Is patient on ventilator? No Is Patient Ambulatory and/or Out of Bed Yes REE-([facility]-ambulatory/OOB) [ 1974.219 [id number]] Calculation Used for Recommendations [place]-St Jeor Additional Notes Protein: >89 g/kg/day (>1.2 g/ kg/day) Fluid: urine output + 1000 ml /day Nutrition Intervention Change Diet Order: Continue Renal with double portions Teaching Recipient Patient Learning Readiness Fair Teaching Methods Discussion,Handout Response to Teaching Reinforcement needed Education Handouts Provided Chronic Kidney Disease Nutrition Barriers to Learning Visual,Motivation RD phone number provided Yes Patient aware of follow up options Yes Goal #1 Acceptance and understanding of diet education Revisit per MD consult or patient Sign Off request:
--- NOTE | 2019-09-03 12:44 | Progress Note ---
Assessment and Plan Assessment and Plan Acute on chronic systolic heart failure ESRD on HD Pulmonary Edema Hypertension Metabolic Acidosis Prescription Non-compliance Plan: - s/p HD yesterday, no HD today. - S/p Right IJ Perm catheter placement by Dr Murphy on 08/27/19 - On Epogen 10,000 units Sq TIW - Renally dose medications - Strict I&O monitoring - Obtain daily weights - Continue to monitor - Case management onboard for outpatient HD arrangement, can be discharged from renal standpoint when outpatient HD is secured Ivan Agosto MD [phone] Subjective Date of service: 09/03/19 Principal diagnosis: ESRD Interval history: Tolerated HD yesterday. Denies ROSE, CP. Eating. Objective - Exam Narrative Exam: General appearance: well-developed, appears stated age EENT: ATNC, PERRL, hearing intact, vision intact Neck: no JVD, supple Respiratory: Present: Decreased Breath Sounds Cardiology: regular, S1S2 Gastrointestinal: normoactive bowel sounds Integumentary: warm and dry Neurologic: alert and oriented x3 Musculoskeletal: other (mild edema) Psychiatric: cooperative - Vital Signs Vital signs: Vital Signs - 12hr 09/03/19 09/03/19 06:05 08:34 Temperature 98.5 F Pulse Rate 59 L 64 Respiratory 18 Rate Blood Pressure 134/83 142/94 O2 Sat by Pulse 97 Oximetry - Lab 08/26/19 04:36 09/03/19 06:01 Most recent lab results Calcium 8.5 mg/dL (8.4-10.2) 09/03/19 06:01 Phosphorus 5.00 mg/dL (2.5-4.5) H 08/26/19 04:36 Magnesium 1.50 mg/dL (1.7-2.3) L 08/24/19 06:30 Urine Creatinine 65.7 mg/dL (0.1-20.0) H 08/25/19 22:10 Urine Sodium 81 mmol/L 08/25/19 22:10 Urine Total Protein 86 mg/dL (5-11.8) H 08/25/19 22:10 Medications & Allergies - Medications Allergies/Adverse Reactions: Allergies No Known Allergies Allergy (Verified 04/09/19 13:12) Home Medications: Home Medications Medication Instructions Recorded Confirmed Last Taken Type Benzonatate [Tessalon Perles] 100 mg PO Q8HR #10 capsule 11/12/19 11/26/19 Unknown Rx Aspirin [Aspirin BABY CHEW TAB] 81 mg PO QDAY #30 tab.chew 09/01/19 Unknown Rx Epoetin Leandro 10,000 Unit [Procrit] 10,000 unit SUB-Q EDIE vial 09/01/19 Unknown Rx Folic Acid [Folvite] 1 mg PO QDAY #30 tablet 09/01/19 Unknown Rx Furosemide [Lasix TAB] 40 mg PO QDAY tablet 09/01/19 Unknown Rx Isosorbide Dinitrate [Isordil 10 mg PO BID #30 tablet 09/01/19 Unknown Rx Titradose] NIFEdipine XL [Procardia Xl] 60 mg PO QDAY #30 tablet 09/01/19 Unknown Rx Pravastatin Sodium [Pravastatin] 20 mg PO QHS #60 tablet 09/01/19 Unknown Rx Pravastatin [Pravachol] 20 mg PO QHS #30 tablet 09/01/19 Unknown Rx Thiamine [Vitamin B-1] 100 mg PO QDAY #30 tablet 09/01/19 Unknown Rx amLODIPine 10 mg PO QDAY #30 tablet 09/01/19 Unknown Rx carvediloL [Coreg] 25 mg PO BID #60 tablet 09/01/19 Unknown Rx hydrALAZINE [Apresoline TAB] 50 mg PO Q8H #90 tablet 09/01/19 Unknown Rx levETIRAcetam [Keppra TAB] 750 mg PO BID #60 tablet 09/01/19 Unknown Rx Active Medications: Generic Name Dose Route Start Last Admin Trade Name Freq PRN Reason Stop Dose Admin Acetaminophen 650 mg 08/24/19 14:55 Tylenol PO Q4H PRN Pain MILD(1-3)/Fever >100.5/TORIBIO Acetaminophen/Hydrocodone Bitart 1 each 08/25/19 15:01 09/03/19 10:20 [place] 5/325 PO 1 each Q6H PRN Administration Pain, Moderate (4-6) Albuterol 2.5 mg 08/24/19 14:55 Proventil IH Q4HRT PRN Shortness Of Breath Aspirin 81 mg 08/25/19 10:00 09/03/19 10:52 Baby Aspirin PO 81 mg QDAY WILL Administration Carvedilol 25 mg 08/24/19 10:00 09/03/19 10:52 Coreg PO 25 mg BID WILL Administration Epoetin Leandro 10,000 unit 08/28/19 13:00 08/31/19 13:12 Procrit SUB-Q 10,000 unit EDIE WILL Administration Folic Acid 1 mg 08/24/19 13:00 09/03/19 10:53 Folvite PO 1 mg QDAY WILL Administration Furosemide 40 mg 08/25/19 10:00 09/03/19 10:51 Lasix PO 40 mg QDAY WILL Administration Heparin Sodium (Porcine) 5,000 unit 08/24/19 22:00 09/03/19 10:53 Heparin SUB-Q 5,000 unit Q12HR WILL Administration Hydralazine HCl 50 mg 08/24/19 09:00 09/03/19 06:05 Apresoline PO 50 mg Q8HR WILL Administration Hydralazine HCl 20 mg 08/24/19 15:17 Apresoline IV Q4HR PRN SBP>170 or DBP>110 Sodium Chloride 100 mls @ 999 mls/hr 08/29/19 13:22 Nacl 0.9% IV EDIE PRN Hypotension Isosorbide Dinitrate 10 mg 08/26/19 12:00 09/03/19 10:51 Isordil Titradose PO 10 mg BID WILL Administration Levetiracetam 750 mg 08/24/19 10:00 09/03/19 10:52 Keppra PO 750 mg BID WILL Administration Morphine Sulfate 2 mg 08/24/19 14:55 09/02/19 04:20 Morphine IV 2 mg Q4H PRN Administration Pain, Moderate (4-6) Nifedipine 60 mg 08/24/19 13:00 09/03/19 10:53 Procardia Xl PO 60 mg QDAY WILL Administration Ondansetron HCl 4 mg 08/24/19 14:55 08/25/19 15:27 Zofran IV 4 mg Q8H PRN Administration Nausea And Vomiting Phenol 1 spray 09/02/19 04:29 09/02/19 06:27 Chloraseptic MM 1 spray PRN PRN Administration Sore Throat Pravastatin Sodium 20 mg 08/24/19 22:00 09/02/19 22:35 Pravachol PO 20 mg QHS WILL Administration Sodium Chloride 10 ml 08/24/19 22:00 09/03/19 10:52 Sodium Chloride Flush Syringe 10 Ml IV 10 ml BID WILL Administration Sodium Chloride 10 ml 08/24/19 14:55 09/02/19 04:23 Sodium Chloride Flush Syringe 10 Ml IV 10 ml PRN PRN Administration LINE FLUSH Thiamine HCl 100 mg 08/24/19 13:00 09/03/19 10:52 Vitamin B-1 PO 100 mg QDAY WILL Administration Zolpidem Tartrate 5 mg 08/27/19 23:42 08/30/19 21:35 Ambien PO 5 mg QHS PRN Administration Sleep
[2019-09-03] MEDS: NICOTINE 14 MG/24 HR PATCH TD SCH (18:27)
[2019-09-03] MEDS: PRAVASTATIN 20 MG TAB PO SCH (21:08)
[2019-09-04] MEDS: hydrALAZINE 25 MG TAB PO SCH ×3 (05:52→21:40)
[2019-09-04] MEDS: HYDROcodone/ACETAMINOPHEN 5-325 MG TAB PO PRN ×2 (05:55→21:43)
[2019-09-04] MEDS: ISOSORBIDE DINITRATE 10 MG TAB PO SCH ×2 (09:36→22:18)
[2019-09-04] MEDS: FOLIC ACID 1 MG TAB PO SCH (09:36)
[2019-09-04] MEDS: levETIRAcetam 500 MG TAB PO SCH ×2 (09:36→21:41)
[2019-09-04] MEDS: NIFEdipine XL 60 MG TAB PO SCH (09:37)
[2019-09-04] MEDS: ASPIRIN 81 MG TAB CHEW PO SCH (09:37)
[2019-09-04] MEDS: NICOTINE 14 MG/24 HR PATCH TD SCH (09:37)
[2019-09-04] MEDS: FUROSEMIDE 40 MG TAB PO SCH (09:37)
[2019-09-04] MEDS: carvediloL 25 MG TAB PO SCH ×2 (09:37→21:39)
[2019-09-04] MEDS: THIAMINE 100 MG TAB PO SCH (09:37)
[2019-09-04] MEDS: HEPARIN 5,000 UNIT/1 ML VIAL SUB-Q SCH ×2 (09:45→21:44)
--- NOTE | 2019-09-04 10:10 | Progress Note ---
Assessment and Plan Assessment and plan: Acute respiratory failure due to CHF exacerbation Cont. Supplemental Oxygen Currently off BIPAP Acute on chronic systolic CHF Lasix iv given in ED consulted Cardiology, following Patient states he has been non-compliant, did not fill prescriptions after discharge about 2 weeks ago ESRD Previously with Acute on chronic kidney disease Consulted Nephrology, following Nephrology recommended initiating hemodialysis Started on hemodialysis 08/28 Will need outpatient hemodialysis No acute indication for HD today HD tomorrow ordered Assess need for HD on daily basis Epogen dosing for anemia management S/p Right IJ Perm catheter placement by Dr Murphy on 08/27/19 Consulted CM for outpatient dialysis placement at [facility] in [place], [place] to be discharged from renal standpoint once secured Hypertensive emergency he was started on Nitro drip resume home meds and hopefully taper of Nitro drip medical non-compliance He states he did not fill any of prescriptions after discharge from here 2 weeks ago. I counseled him on importance of taking meds and following with Physician Seizure disorder resumed keppra seizure precautions Full code status Patient medically stable Disposition. Await outpatient hemodialysis. History Interval history: feels better, No more shortness of breath No chest pain Hospitalist Physical - Physical exam Narrative exam: Gen: Not in acute distress, lying in bed HEENT: Normocephalic, atraumatic Neck: supple, no JVD Heart: S1 and S2 reg, no murmurs, rubs or gallop Lungs: Clear to auscultation bilaterally, Abd: soft, non tender, non distended, normal BS, Ext: Bilateral edema of legs, no clubbing, no cyanosis Neuro: Awake, alert, oriented X 3, No focal neurological signs - Constitutional Vitals: Temp Pulse Resp BP Pulse Ox 98.1 F 57 L 18 111/71 98 09/04/19 03:07 09/04/19 03:07 09/04/19 03:07 09/04/19 03:07 09/04/19 03:07 General appearance: Present: no acute distress, well-nourished Results - Labs CBC & Chem 7: 08/26/19 04:36 09/03/19 06:01 Labs: Laboratory Last Values WBC 3.9 K/mm3 (4.5-11.0) L 08/26/19 04:36 RBC 2.35 M/mm3 (3.65-5.03) L 08/26/19 04:36 Hgb 7.8 gm/dl (11.8-15.2) L 08/26/19 04:36 Hct 23.5 % (35.5-45.6) L 08/26/19 04:36 MCV 100 fl (84-94) H 08/26/19 04:36 MCH 33 pg (28-32) H 08/26/19 04:36 MCHC 33 % (32-34) 08/26/19 04:36 RDW 16.6 % (13.2-15.2) H 08/26/19 04:36 Plt Count 223 K/mm3 (140-440) 08/26/19 04:36 Lymph % (Auto) 7.4 % (13.4-35.0) L 08/26/19 04:36 Randall % (Auto) 5.3 % (0.0-7.3) 08/26/19 04:36 Eos % (Auto) 1.8 % (0.0-4.3) 08/26/19 04:36 Baso % (Auto) 0.7 % (0.0-1.8) 08/26/19 04:36 Lymph # 0.3 K/mm3 (1.2-5.4) L 08/26/19 04:36 Randall # 0.2 K/mm3 (0.0-0.8) 08/26/19 04:36 Eos # 0.1 K/mm3 (0.0-0.4) 08/26/19 04:36 Baso # 0.0 K/mm3 (0.0-0.1) 08/26/19 04:36 Seg Neutrophils % 84.8 % (40.0-70.0) H 08/26/19 04:36 Seg Neutrophils # 3.3 K/mm3 (1.8-7.7) 08/26/19 04:36 PT 13.8 Sec. (12.2-14.9) 08/24/19 06:30 INR 1.07 (0.87-1.13) 08/24/19 06:30 APTT 27.8 Sec. (24.2-36.6) 08/24/19 06:30 Sodium 140 mmol/L (137-145) 09/03/19 06:01 Potassium 4.3 mmol/L (3.6-5.0) 09/03/19 06:01 Chloride 100.3 mmol/L (98-107) 09/03/19 06:01 Carbon Dioxide 23 mmol/L (22-30) 09/03/19 06:01 Anion Gap 21 mmol/L 09/03/19 06:01 BUN 31 mg/dL (9-20) H 09/03/19 06:01 Creatinine 4.0 mg/dL (0.8-1.5) H 09/03/19 06:01 Estimated GFR 19 ml/min 09/03/19 06:01 BUN/Creatinine Ratio 8 % 09/03/19 06:01 Glucose 83 mg/dL (75-100) 09/03/19 06:01 Calcium 8.5 mg/dL (8.4-10.2) 09/03/19 06:01 Phosphorus 5.00 mg/dL (2.5-4.5) H 08/26/19 04:36 Magnesium 1.50 mg/dL (1.7-2.3) L 08/24/19 06:30 Total Bilirubin < 0.20 mg/dL (0.1-1.2) 08/24/19 06:30 AST 25 units/L (5-40) 08/24/19 06:30 ALT 45 units/L (7-56) 08/24/19 06:30 Alkaline Phosphatase 165 units/L (35-129) H 08/24/19 06:30 Total Creatine Kinase 154 units/L (55-170) 08/24/19 06:30 Troponin T 0.031 ng/mL (0.00-0.029) H 08/24/19 06:30 Total Protein 6.5 g/dL (6.3-8.2) 08/24/19 06:30 Albumin 3.7 g/dL (3.9-5) L 08/24/19 06:30 Albumin/Globulin Ratio 1.3 % 08/24/19 06:30 Triglycerides 65 mg/dL (2-149) 08/24/19 06:30 Cholesterol 127 mg/dL (50-199) 08/24/19 06:30 LDL Cholesterol Direct 69 mg/dL (50-130) 08/24/19 06:30 HDL Cholesterol 53 mg/dL (40-59) 08/24/19 06:30 Cholesterol/HDL Ratio 2.39 % 08/24/19 06:30 Urine Color Yellow (Yellow) 08/24/19 Unknown Urine Turbidity Clear (Clear) 08/24/19 Unknown Urine pH 5.0 (5.0-7.0) 08/24/19 Unknown Ur Specific [place] 1.014 (1.003-1.030) 08/24/19 Unknown Urine Protein >2000 mg dl mg/dL (Negative) 08/24/19 Unknown Urine Glucose (UA) 50 mg/dL (Negative) 08/24/19 Unknown Urine Ketones Neg mg/dL (Negative) 08/24/19 Unknown Urine Blood Sm (Negative) 08/24/19 Unknown Urine Nitrite Neg (Negative) 08/24/19 Unknown Urine Bilirubin Neg (Negative) 08/24/19 Unknown Urine Urobilinogen < 2.0 mg/dL (<2.0) 08/24/19 Unknown Ur Leukocyte Esterase Neg (Negative) 08/24/19 Unknown Urine WBC (Auto) 2.0 /HPF (0.0-6.0) 08/24/19 Unknown Urine RBC (Auto) 2.0 /HPF (0.0-6.0) 08/24/19 Unknown Urine Creatinine 65.7 mg/dL (0.1-20.0) H 08/25/19 22:10 Protein/Creatinin Ratio 1.31 08/25/19 22:10 Urine Sodium 81 mmol/L 08/25/19 22:10 Urine Total Protein 86 mg/dL (5-11.8) H 08/25/19 22:10 Hepatitis A IgM Ab Non-reactive (NonReactive) 08/26/19 10:12 Hep Bs Antigen Non-reactive (Negative) 08/26/19 10:12 Hep B Core IgM Ab Non-reactive (NonReactive) 08/26/19 10:12 Hepatitis C Antibody Non-reactive (NonReactive) 08/26/19 10:12 Active Medications - Current Medications Current Medications: Generic Name Dose Route Start Last Admin Trade Name Freq PRN Reason Stop Dose Admin Acetaminophen 650 mg 08/24/19 14:55 Tylenol PO Q4H PRN Pain MILD(1-3)/Fever >100.5/TORIBIO Acetaminophen/Hydrocodone Bitart 1 each 08/25/19 15:01 09/04/19 05:55 [place] 5/325 PO 1 each Q6H PRN Administration Pain, Moderate (4-6) Albuterol 2.5 mg 08/24/19 14:55 Proventil IH Q4HRT PRN Shortness Of Breath Aspirin 81 mg 08/25/19 10:00 09/04/19 09:37 Baby Aspirin PO 81 mg QDAY WILL Administration Carvedilol 25 mg 08/24/19 10:00 09/04/19 09:37 Coreg PO 25 mg BID WILL Administration Epoetin Leandro 10,000 unit 08/28/19 13:00 08/31/19 13:12 Procrit SUB-Q 10,000 unit EDIE WILL Administration Folic Acid 1 mg 08/24/19 13:00 09/04/19 09:36 Folvite PO 1 mg QDAY WILL Administration Furosemide 40 mg 08/25/19 10:00 09/04/19 09:37 Lasix PO 40 mg QDAY WILL Administration Heparin Sodium (Porcine) 5,000 unit 08/24/19 22:00 09/03/19 21:08 Heparin SUB-Q 5,000 unit Q12HR WILL Administration Hydralazine HCl 50 mg 08/24/19 09:00 09/04/19 05:52 Apresoline PO 50 mg Q8HR WILL Administration Hydralazine HCl 20 mg 08/24/19 15:17 Apresoline IV Q4HR PRN SBP>170 or DBP>110 Sodium Chloride 100 mls @ 999 mls/hr 08/29/19 13:22 Nacl 0.9% IV EDIE PRN Hypotension Isosorbide Dinitrate 10 mg 08/26/19 12:00 09/04/19 09:36 Isordil Titradose PO 10 mg BID WILL Administration Levetiracetam 750 mg 08/24/19 10:00 09/04/19 09:36 Keppra PO 750 mg BID WILL Administration Morphine Sulfate 2 mg 08/24/19 14:55 09/02/19 04:20 Morphine IV 2 mg Q4H PRN Administration Pain, Moderate (4-6) Nicotine 14 mg 09/03/19 17:00 09/04/19 09:37 Habitrol TD 14 mg QDAY WILL Administration Nifedipine 60 mg 08/24/19 13:00 09/04/19 09:37 Procardia Xl PO 60 mg QDAY WILL Administration Ondansetron HCl 4 mg 08/24/19 14:55 08/25/19 15:27 Zofran IV 4 mg Q8H PRN Administration Nausea And Vomiting Phenol 1 spray 09/02/19 04:29 09/02/19 06:27 Chloraseptic MM 1 spray PRN PRN Administration Sore Throat Pravastatin Sodium 20 mg 08/24/19 22:00 09/03/19 21:08 Pravachol PO 20 mg QHS WILL Administration Sodium Chloride 10 ml 08/24/19 22:00 09/04/19 09:37 Sodium Chloride Flush Syringe 10 Ml IV 10 ml BID WILL Administration Sodium Chloride 10 ml 08/24/19 14:55 09/02/19 04:23 Sodium Chloride Flush Syringe 10 Ml IV 10 ml PRN PRN Administration LINE FLUSH Thiamine HCl 100 mg 08/24/19 13:00 09/04/19 09:37 Vitamin B-1 PO 100 mg QDAY WILL Administration Zolpidem Tartrate 5 mg 08/27/19 23:42 08/30/19 21:35 Ambien PO 5 mg QHS PRN Administration Sleep Nutrition/Malnutrition Assess - Dietary Evaluation Nutrition/Malnutrition Findings: Nutrition Notes Start: 08/31/19 14:12 Freq: Status: Active Protocol: Document 08/31/19 14:12 CT (Rec: 08/31/19 14:27 CT [id number]) Co-Sign 08/31/19 14:12 LP Nutrition Notes Need for Assessment generated from: LOS,Education Initial or Follow up Assessment Current Diagnosis Hypertension,Heart Failure Other Pertinent Diagnosis ESRD on HD, pulmonary edema, medical noncompliance, seizure disorder Current Diet Renal Labs/Tests BUN 45 Creatinine 4.9 Pertinent Medications Mauro Rodriguez Height 5 ft 7 in Weight 74 kg Usual Body Weight 68.039 kg [place] Body Weight (kg) 67.27 BMI 25.5 Intake Prior to Admission Good Weight Status Overweight Subjective/Other Information LOS assessment. Pt was eating his lunch at time of visit and requested more, was able to locate RN to get pt another tray. Pt was asked if he wanted double portions and he said yes. Pt is eating 100% of meals and has a good appetite. Education on renal diet was given to pt. Pt stated that he can't read d/t not having reading glasses. Burn Absent Trauma Absent GI Symptoms None Current % PO Good (75-100%) Minimum of two criteria No physical signs of malnutrition #1 Nutrition Diagnosis Food and nutrition-related knowledge deficit Etiology no previous knowledge on renal diet As Evidenced by Signs and Symptoms pt acceptance of renal diet discussion and handout Is patient on ventilator? No Is Patient Ambulatory and/or Out of Bed Yes REE-([facility]-ambulatory/OOB) [ 1974.219 [id number]] Calculation Used for Recommendations [facility] Additional Notes Protein: >89 g/kg/day (>1.2 g/ kg/day) Fluid: urine output + 1000 ml /day Nutrition Intervention Change Diet Order: Continue Renal with double portions Teaching Recipient Patient Learning Readiness Fair Teaching Methods Discussion,Handout Response to Teaching Reinforcement needed Education Handouts Provided Chronic Kidney Disease Nutrition Barriers to Learning Visual,Motivation RD phone number provided Yes Patient aware of follow up options Yes Goal #1 Acceptance and understanding of diet education Revisit per MD consult or patient Sign Off request:
--- NOTE | 2019-09-04 12:54 | Progress Note ---
Assessment and Plan Assessment and Plan Acute on chronic systolic heart failure ESRD on HD Pulmonary Edema Hypertension Metabolic Acidosis Prescription Non-compliance Plan: - HD today. - S/p Right IJ Perm catheter placement by Dr Murphy on 08/27/19 - On Epogen 10,000 units Sq TIW - Renally dose medications - Strict I&O monitoring - Obtain daily weights - Continue to monitor - Case management onboard for outpatient HD arrangement, can be discharged from renal standpoint when outpatient HD is secured Ivan Agosto MD [phone] Subjective Date of service: 09/04/19 Principal diagnosis: ESRD Interval history: HD today. Objective - Exam Narrative Exam: General appearance: well-developed, appears stated age EENT: ATNC, PERRL, hearing intact, vision intact Neck: no JVD, supple Respiratory: Present: Decreased Breath Sounds Cardiology: regular, S1S2 Gastrointestinal: normoactive bowel sounds Integumentary: warm and dry Neurologic: alert and oriented x3 Musculoskeletal: other (mild edema) Psychiatric: cooperative - Vital Signs Vital signs: Vital Signs - 12hr 09/04/19 09/04/19 09/04/19 03:07 08:25 10:00 Temperature 98.1 F 98.4 F Pulse Rate 57 L 63 61 Respiratory 18 18 Rate Blood Pressure 111/71 135/80 O2 Sat by Pulse 98 100 Oximetry - Lab 08/26/19 04:36 09/03/19 06:01 Most recent lab results Calcium 8.5 mg/dL (8.4-10.2) 09/03/19 06:01 Phosphorus 5.00 mg/dL (2.5-4.5) H 08/26/19 04:36 Magnesium 1.50 mg/dL (1.7-2.3) L 08/24/19 06:30 Urine Creatinine 65.7 mg/dL (0.1-20.0) H 08/25/19 22:10 Urine Sodium 81 mmol/L 08/25/19 22:10 Urine Total Protein 86 mg/dL (5-11.8) H 08/25/19 22:10 Medications & Allergies - Medications Allergies/Adverse Reactions: Allergies No Known Allergies Allergy (Verified 04/09/19 13:12) Home Medications: Home Medications Medication Instructions Recorded Confirmed Last Taken Type Benzonatate [Tessalon Perles] 100 mg PO Q8HR #10 capsule 08/10/19 08/24/19 Unknown Rx Aspirin [Aspirin BABY CHEW TAB] 81 mg PO QDAY #30 tab.chew 09/01/19 Unknown Rx Epoetin Leandro 10,000 Unit [Procrit] 10,000 unit SUB-Q EDIE vial 09/01/19 Unknown Rx Folic Acid [Folvite] 1 mg PO QDAY #30 tablet 09/01/19 Unknown Rx Furosemide [Lasix TAB] 40 mg PO QDAY tablet 09/01/19 Unknown Rx Isosorbide Dinitrate [Isordil 10 mg PO BID #30 tablet 09/01/19 Unknown Rx Titradose] NIFEdipine XL [Procardia Xl] 60 mg PO QDAY #30 tablet 09/01/19 Unknown Rx Pravastatin Sodium [Pravastatin] 20 mg PO QHS #60 tablet 09/01/19 Unknown Rx Pravastatin [Pravachol] 20 mg PO QHS #30 tablet 09/01/19 Unknown Rx Thiamine [Vitamin B-1] 100 mg PO QDAY #30 tablet 09/01/19 Unknown Rx amLODIPine 10 mg PO QDAY #30 tablet 09/01/19 Unknown Rx carvediloL [Coreg] 25 mg PO BID #60 tablet 09/01/19 Unknown Rx hydrALAZINE [Apresoline TAB] 50 mg PO Q8H #90 tablet 09/01/19 Unknown Rx levETIRAcetam [Keppra TAB] 750 mg PO BID #60 tablet 09/01/19 Unknown Rx Active Medications: Generic Name Dose Route Start Last Admin Trade Name Freq PRN Reason Stop Dose Admin Acetaminophen 650 mg 08/24/19 14:55 Tylenol PO Q4H PRN Pain MILD(1-3)/Fever >100.5/TORIBIO Acetaminophen/Hydrocodone Bitart 1 each 08/25/19 15:01 09/04/19 05:55 [place] 5/325 PO 1 each Q6H PRN Administration Pain, Moderate (4-6) Albuterol 2.5 mg 08/24/19 14:55 Proventil IH Q4HRT PRN Shortness Of Breath Aspirin 81 mg 08/25/19 10:00 09/04/19 09:37 Baby Aspirin PO 81 mg QDAY WILL Administration Carvedilol 25 mg 08/24/19 10:00 09/04/19 09:37 Coreg PO 25 mg BID WILL Administration Epoetin Leandro 10,000 unit 08/28/19 13:00 08/31/19 13:12 Procrit SUB-Q 10,000 unit EDIE WILL Administration Folic Acid 1 mg 08/24/19 13:00 09/04/19 09:36 Folvite PO 1 mg QDAY WILL Administration Furosemide 40 mg 08/25/19 10:00 09/04/19 09:37 Lasix PO 40 mg QDAY WILL Administration Heparin Sodium (Porcine) 5,000 unit 08/24/19 22:00 09/04/19 09:45 Heparin SUB-Q 5,000 unit Q12HR WILL Administration Hydralazine HCl 50 mg 08/24/19 09:00 09/04/19 05:52 Apresoline PO 50 mg Q8HR WILL Administration Hydralazine HCl 20 mg 08/24/19 15:17 Apresoline IV Q4HR PRN SBP>170 or DBP>110 Sodium Chloride 100 mls @ 999 mls/hr 08/29/19 13:22 Nacl 0.9% IV EDIE PRN Hypotension Isosorbide Dinitrate 10 mg 08/26/19 12:00 09/04/19 09:36 Isordil Titradose PO 10 mg BID WILL Administration Levetiracetam 750 mg 08/24/19 10:00 09/04/19 09:36 Keppra PO 750 mg BID WILL Administration Morphine Sulfate 2 mg 08/24/19 14:55 09/02/19 04:20 Morphine IV 2 mg Q4H PRN Administration Pain, Moderate (4-6) Nicotine 14 mg 09/03/19 17:00 09/04/19 09:37 Habitrol TD 14 mg QDAY WILL Administration Nifedipine 60 mg 08/24/19 13:00 09/04/19 09:37 Procardia Xl PO 60 mg QDAY WILL Administration Ondansetron HCl 4 mg 08/24/19 14:55 08/25/19 15:27 Zofran IV 4 mg Q8H PRN Administration Nausea And Vomiting Phenol 1 spray 09/02/19 04:29 09/02/19 06:27 Chloraseptic MM 1 spray PRN PRN Administration Sore Throat Pravastatin Sodium 20 mg 08/24/19 22:00 09/03/19 21:08 Pravachol PO 20 mg QHS WILL Administration Sodium Chloride 10 ml 08/24/19 22:00 09/04/19 09:37 Sodium Chloride Flush Syringe 10 Ml IV 10 ml BID WILL Administration Sodium Chloride 10 ml 08/24/19 14:55 09/02/19 04:23 Sodium Chloride Flush Syringe 10 Ml IV 10 ml PRN PRN Administration LINE FLUSH Thiamine HCl 100 mg 08/24/19 13:00 09/04/19 09:37 Vitamin B-1 PO 100 mg QDAY WILL Administration Zolpidem Tartrate 5 mg 08/27/19 23:42 08/30/19 21:35 Ambien PO 5 mg QHS PRN Administration Sleep
[2019-09-04] MEDS ORDERED: SODIUM CHLORIDE*PRIMING MACHINE ONLY FOR DIALYSIS MC ONE (15:56)
[2019-09-04] MEDS: PRAVASTATIN 20 MG TAB PO SCH (21:41)
[2019-09-05] MEDS: hydrALAZINE 25 MG TAB PO SCH ×3 (05:35→22:45)
[2019-09-05] MEDS: THIAMINE 100 MG TAB PO SCH (09:16)
[2019-09-05] MEDS: NIFEdipine XL 60 MG TAB PO SCH (09:16)
[2019-09-05] MEDS: FUROSEMIDE 40 MG TAB PO SCH (09:16)
[2019-09-05] MEDS: FOLIC ACID 1 MG TAB PO SCH (09:16)
[2019-09-05] MEDS: ASPIRIN 81 MG TAB CHEW PO SCH (09:16)
[2019-09-05] MEDS: levETIRAcetam 500 MG TAB PO SCH ×2 (09:16→22:46)
[2019-09-05] MEDS: carvediloL 25 MG TAB PO SCH ×2 (09:17→22:45)
[2019-09-05] MEDS: HEPARIN 5,000 UNIT/1 ML VIAL SUB-Q SCH ×2 (09:17→22:47)
[2019-09-05] MEDS: NICOTINE 14 MG/24 HR PATCH TD SCH (09:17)
[2019-09-05] MEDS: ISOSORBIDE DINITRATE 10 MG TAB PO SCH ×2 (10:00→22:46)
--- NOTE | 2019-09-05 12:21 | Progress Note ---
Assessment and Plan Assessment and plan: Acute respiratory failure due to CHF exacerbation Now on room air Off Supplemental Oxygen off BIPAP Acute on chronic systolic CHF Lasix iv given in ED consulted Cardiology, following Patient states he has been non-compliant, did not fill prescriptions after discharge about 2 weeks ago ESRD Previously with Acute on chronic kidney disease Consulted Nephrology, following Nephrology recommended initiating hemodialysis Started on hemodialysis 08/28 Will need outpatient hemodialysis Epogen dosing for anemia management S/p Right IJ Perm catheter placement by Dr Murphy on 08/27/19 Consulted CM for outpatient dialysis placement at [facility] in [place], [place] to be discharged from renal standpoint once secured Hypertensive emergency Resolved medical non-compliance He states he did not fill any of prescriptions after discharge from here 2 weeks ago. I counseled him on importance of taking meds and following with Physician Seizure disorder resumed keppra seizure precautions Full code status Patient medically stable Disposition. Await outpatient hemodialysis. History Interval history: feels better, No more shortness of breath No chest pain Hospitalist Physical - Physical exam Narrative exam: Gen: Not in acute distress, lying in bed HEENT: Normocephalic, atraumatic Neck: supple, no JVD Heart: S1 and S2 reg, no murmurs, rubs or gallop Lungs: Clear to auscultation bilaterally, Abd: soft, non tender, non distended, normal BS, Ext: Bilateral edema of legs, no clubbing, no cyanosis Neuro: Awake, alert, oriented X 3, No focal neurological signs - Constitutional Vitals: Temp Pulse Resp BP Pulse Ox 98.2 F 58 L 16 126/74 99 09/05/19 04:44 09/05/19 05:35 09/05/19 04:44 09/05/19 05:35 09/05/19 04:44 General appearance: Present: no acute distress Results - Labs CBC & Chem 7: 08/26/19 04:36 09/03/19 06:01 Labs: Laboratory Last Values WBC 3.9 K/mm3 (4.5-11.0) L 08/26/19 04:36 RBC 2.35 M/mm3 (3.65-5.03) L 08/26/19 04:36 Hgb 7.8 gm/dl (11.8-15.2) L 08/26/19 04:36 Hct 23.5 % (35.5-45.6) L 08/26/19 04:36 MCV 100 fl (84-94) H 08/26/19 04:36 MCH 33 pg (28-32) H 08/26/19 04:36 MCHC 33 % (32-34) 08/26/19 04:36 RDW 16.6 % (13.2-15.2) H 08/26/19 04:36 Plt Count 223 K/mm3 (140-440) 08/26/19 04:36 Lymph % (Auto) 7.4 % (13.4-35.0) L 08/26/19 04:36 [place] % (Auto) 5.3 % (0.0-7.3) 08/26/19 04:36 Eos % (Auto) 1.8 % (0.0-4.3) 08/26/19 04:36 Baso % (Auto) 0.7 % (0.0-1.8) 08/26/19 04:36 Lymph # 0.3 K/mm3 (1.2-5.4) L 08/26/19 04:36 [place] # 0.2 K/mm3 (0.0-0.8) 08/26/19 04:36 Eos # 0.1 K/mm3 (0.0-0.4) 08/26/19 04:36 Baso # 0.0 K/mm3 (0.0-0.1) 08/26/19 04:36 Seg Neutrophils % 84.8 % (40.0-70.0) H 08/26/19 04:36 Seg Neutrophils # 3.3 K/mm3 (1.8-7.7) 08/26/19 04:36 PT 13.8 Sec. (12.2-14.9) 08/24/19 06:30 INR 1.07 (0.87-1.13) 08/24/19 06:30 APTT 27.8 Sec. (24.2-36.6) 08/24/19 06:30 Sodium 140 mmol/L (137-145) 09/03/19 06:01 Potassium 4.3 mmol/L (3.6-5.0) 09/03/19 06:01 Chloride 100.3 mmol/L (98-107) 09/03/19 06:01 Carbon Dioxide 23 mmol/L (22-30) 09/03/19 06:01 Anion Gap 21 mmol/L 09/03/19 06:01 BUN 31 mg/dL (9-20) H 09/03/19 06:01 Creatinine 4.0 mg/dL (0.8-1.5) H 09/03/19 06:01 Estimated GFR 19 ml/min 09/03/19 06:01 BUN/Creatinine Ratio 8 % 09/03/19 06:01 Glucose 83 mg/dL (75-100) 09/03/19 06:01 Calcium 8.5 mg/dL (8.4-10.2) 09/03/19 06:01 Phosphorus 5.00 mg/dL (2.5-4.5) H 08/26/19 04:36 Magnesium 1.50 mg/dL (1.7-2.3) L 08/24/19 06:30 Total Bilirubin < 0.20 mg/dL (0.1-1.2) 08/24/19 06:30 AST 25 units/L (5-40) 08/24/19 06:30 ALT 45 units/L (7-56) 08/24/19 06:30 Alkaline Phosphatase 165 units/L (35-129) H 08/24/19 06:30 Total Creatine Kinase 154 units/L (55-170) 08/24/19 06:30 Troponin T 0.031 ng/mL (0.00-0.029) H 08/24/19 06:30 Total Protein 6.5 g/dL (6.3-8.2) 08/24/19 06:30 Albumin 3.7 g/dL (3.9-5) L 08/24/19 06:30 Albumin/Globulin Ratio 1.3 % 08/24/19 06:30 Triglycerides 65 mg/dL (2-149) 08/24/19 06:30 Cholesterol 127 mg/dL (50-199) 08/24/19 06:30 LDL Cholesterol Direct 69 mg/dL (50-130) 08/24/19 06:30 HDL Cholesterol 53 mg/dL (40-59) 08/24/19 06:30 Cholesterol/HDL Ratio 2.39 % 08/24/19 06:30 Urine Color Yellow (Yellow) 08/24/19 Unknown Urine Turbidity Clear (Clear) 08/24/19 Unknown Urine pH 5.0 (5.0-7.0) 08/24/19 Unknown Ur Specific [place] 1.014 (1.003-1.030) 08/24/19 Unknown Urine Protein >2000 mg dl mg/dL (Negative) 08/24/19 Unknown Urine Glucose (UA) 50 mg/dL (Negative) 08/24/19 Unknown Urine Ketones Neg mg/dL (Negative) 08/24/19 Unknown Urine Blood Sm (Negative) 08/24/19 Unknown Urine Nitrite Neg (Negative) 08/24/19 Unknown Urine Bilirubin Neg (Negative) 08/24/19 Unknown Urine Urobilinogen < 2.0 mg/dL (<2.0) 08/24/19 Unknown Ur Leukocyte Esterase Neg (Negative) 08/24/19 Unknown Urine WBC (Auto) 2.0 /HPF (0.0-6.0) 08/24/19 Unknown Urine RBC (Auto) 2.0 /HPF (0.0-6.0) 08/24/19 Unknown Urine Creatinine 65.7 mg/dL (0.1-20.0) H 08/25/19 22:10 Protein/Creatinin Ratio 1.31 08/25/19 22:10 Urine Sodium 81 mmol/L 08/25/19 22:10 Urine Total Protein 86 mg/dL (5-11.8) H 08/25/19 22:10 Hepatitis A IgM Ab Non-reactive (NonReactive) 08/26/19 10:12 Hep Bs Antigen Non-reactive (Negative) 08/26/19 10:12 Hep B Core IgM Ab Non-reactive (NonReactive) 08/26/19 10:12 Hepatitis C Antibody Non-reactive (NonReactive) 08/26/19 10:12 Active Medications - Current Medications Current Medications: Generic Name Dose Route Start Last Admin Trade Name Freq PRN Reason Stop Dose Admin Acetaminophen 650 mg 08/24/19 14:55 Tylenol PO Q4H PRN Pain MILD(1-3)/Fever >100.5/TORIBIO Acetaminophen/Hydrocodone Bitart 1 each 08/25/19 15:01 09/04/19 21:43 [place] 5/325 PO 1 each Q6H PRN Administration Pain, Moderate (4-6) Albuterol 2.5 mg 08/24/19 14:55 Proventil IH Q4HRT PRN Shortness Of Breath Aspirin 81 mg 08/25/19 10:00 09/05/19 09:16 Baby Aspirin PO 81 mg QDAY WILL Administration Carvedilol 25 mg 08/24/19 10:00 09/05/19 09:17 Coreg PO 25 mg BID WILL Administration Epoetin Leandro 10,000 unit 08/28/19 13:00 08/31/19 13:12 Procrit SUB-Q 10,000 unit EDIE WILL Administration Folic Acid 1 mg 08/24/19 13:00 09/05/19 09:16 Folvite PO 1 mg QDAY WILL Administration Furosemide 40 mg 08/25/19 10:00 09/05/19 09:16 Lasix PO 40 mg QDAY WILL Administration Heparin Sodium (Porcine) 5,000 unit 08/24/19 22:00 09/05/19 09:17 Heparin SUB-Q 5,000 unit Q12HR WILL Administration Hydralazine HCl 50 mg 08/24/19 09:00 09/05/19 05:35 Apresoline PO 50 mg Q8HR WILL Administration Hydralazine HCl 20 mg 08/24/19 15:17 Apresoline IV Q4HR PRN SBP>170 or DBP>110 Sodium Chloride 100 mls @ 999 mls/hr 08/29/19 13:22 Nacl 0.9% IV EDIE PRN Hypotension Isosorbide Dinitrate 10 mg 08/26/19 12:00 09/04/19 22:18 Isordil Titradose PO 10 mg BID WILL Administration Levetiracetam 750 mg 08/24/19 10:00 09/05/19 09:16 Keppra PO 750 mg BID WILL Administration Morphine Sulfate 2 mg 08/24/19 14:55 09/02/19 04:20 Morphine IV 2 mg Q4H PRN Administration Pain, Moderate (4-6) Nicotine 14 mg 09/03/19 17:00 09/05/19 09:17 Habitrol TD 14 mg QDAY WILL Administration Nifedipine 60 mg 08/24/19 13:00 09/05/19 09:16 Procardia Xl PO 60 mg QDAY WILL Administration Ondansetron HCl 4 mg 08/24/19 14:55 08/25/19 15:27 Zofran IV 4 mg Q8H PRN Administration Nausea And Vomiting Phenol 1 spray 09/02/19 04:29 09/02/19 06:27 Chloraseptic MM 1 spray PRN PRN Administration Sore Throat Pravastatin Sodium 20 mg 08/24/19 22:00 09/04/19 21:41 Pravachol PO 20 mg QHS WILL Administration Sodium Chloride 10 ml 08/24/19 22:00 09/05/19 09:18 Sodium Chloride Flush Syringe 10 Ml IV 10 ml BID WILL Administration Sodium Chloride 10 ml 08/24/19 14:55 09/02/19 04:23 Sodium Chloride Flush Syringe 10 Ml IV 10 ml PRN PRN Administration LINE FLUSH Thiamine HCl 100 mg 08/24/19 13:00 09/05/19 09:16 Vitamin B-1 PO 100 mg QDAY WILL Administration Zolpidem Tartrate 5 mg 08/27/19 23:42 08/30/19 21:35 Ambien PO 5 mg QHS PRN Administration Sleep Nutrition/Malnutrition Assess - Dietary Evaluation Nutrition/Malnutrition Findings: Nutrition Notes Start: 08/31/19 14:12 Freq: Status: Active Protocol: Document 08/31/19 14:12 CT (Rec: 08/31/19 14:27 CT [id number]) Co-Sign 08/31/19 14:12 LP Nutrition Notes Need for Assessment generated from: LOS,Education Initial or Follow up Assessment Current Diagnosis Hypertension,Heart Failure Other Pertinent Diagnosis ESRD on HD, pulmonary edema, medical noncompliance, seizure disorder Current Diet Renal Labs/Tests BUN 45 Creatinine 4.9 Pertinent Medications Mauro Rodriguez Height 5 ft 7 in Weight 74 kg Usual Body Weight 68.039 kg [place] Body Weight (kg) 67.27 BMI 25.5 Intake Prior to Admission Good Weight Status Overweight Subjective/Other Information LOS assessment. Pt was eating his lunch at time of visit and requested more, was able to locate RN to get pt another tray. Pt was asked if he wanted double portions and he said yes. Pt is eating 100% of meals and has a good appetite. Education on renal diet was given to pt. Pt stated that he can't read d/t not having reading glasses. Burn Absent Trauma Absent GI Symptoms None Current % PO Good (75-100%) Minimum of two criteria No physical signs of malnutrition #1 Nutrition Diagnosis Food and nutrition-related knowledge deficit Etiology no previous knowledge on renal diet As Evidenced by Signs and Symptoms pt acceptance of renal diet discussion and handout Is patient on ventilator? No Is Patient Ambulatory and/or Out of Bed Yes REE-([facility]-ambulatory/OOB) [ 1974.219 [id number]] Calculation Used for Recommendations [facility] Additional Notes Protein: >89 g/kg/day (>1.2 g/ kg/day) Fluid: urine output + 1000 ml /day Nutrition Intervention Change Diet Order: Continue Renal with double portions Teaching Recipient Patient Learning Readiness Fair Teaching Methods Discussion,Handout Response to Teaching Reinforcement needed Education Handouts Provided Chronic Kidney Disease Nutrition Barriers to Learning Visual,Motivation RD phone number provided Yes Patient aware of follow up options Yes Goal #1 Acceptance and understanding of diet education Revisit per MD consult or patient Sign Off request:
--- NOTE | 2019-09-05 13:06 | Progress Note ---
Assessment and Plan Assessment and Plan Acute on chronic systolic heart failure ESRD on HD Pulmonary Edema Hypertension Metabolic Acidosis Prescription Non-compliance Plan: - s/p HD yesterday, no HD today. - S/p Right IJ Perm catheter placement by Dr Murphy on 08/27/19 - On Epogen 10,000 units Sq TIW - Renally dose medications - Strict I&O monitoring - Obtain daily weights - Continue to monitor - Case management onboard for outpatient HD arrangement, can be discharged from renal standpoint when outpatient HD is secured Ivan Agosto MD [phone] Subjective Date of service: 09/05/19 Principal diagnosis: ESRD Interval history: Tolerated HD yesterday. Eating at bedside. Objective - Exam Narrative Exam: General appearance: well-developed, appears stated age EENT: ATNC, PERRL, hearing intact, vision intact Neck: no JVD, supple Respiratory: Present: Decreased Breath Sounds Cardiology: regular, S1S2 Gastrointestinal: normoactive bowel sounds Integumentary: warm and dry Neurologic: alert and oriented x3 Musculoskeletal: other (mild edema) Psychiatric: cooperative - Vital Signs Vital signs: Vital Signs - 12hr 09/05/19 09/05/19 04:44 05:35 Temperature 98.2 F Pulse Rate 58 L 58 L Respiratory 16 Rate Blood Pressure 126/74 126/74 O2 Sat by Pulse 99 Oximetry - Lab 08/26/19 04:36 09/03/19 06:01 Most recent lab results Calcium 8.5 mg/dL (8.4-10.2) 09/03/19 06:01 Phosphorus 5.00 mg/dL (2.5-4.5) H 08/26/19 04:36 Magnesium 1.50 mg/dL (1.7-2.3) L 08/24/19 06:30 Urine Creatinine 65.7 mg/dL (0.1-20.0) H 08/25/19 22:10 Urine Sodium 81 mmol/L 08/25/19 22:10 Urine Total Protein 86 mg/dL (5-11.8) H 08/25/19 22:10 Medications & Allergies - Medications Allergies/Adverse Reactions: Allergies No Known Allergies Allergy (Verified 04/09/19 13:12) Home Medications: Home Medications Medication Instructions Recorded Confirmed Last Taken Type Benzonatate [Tessalon Perles] 100 mg PO Q8HR #10 capsule 08/10/19 08/24/19 Unknown Rx Aspirin [Aspirin BABY CHEW TAB] 81 mg PO QDAY #30 tab.chew 09/01/19 Unknown Rx Epoetin Leandro 10,000 Unit [Procrit] 10,000 unit SUB-Q EDIE vial 09/01/19 Unknown Rx Folic Acid [Folvite] 1 mg PO QDAY #30 tablet 09/01/19 Unknown Rx Furosemide [Lasix TAB] 40 mg PO QDAY tablet 09/01/19 Unknown Rx Isosorbide Dinitrate [Isordil 10 mg PO BID #30 tablet 09/01/19 Unknown Rx Titradose] NIFEdipine XL [Procardia Xl] 60 mg PO QDAY #30 tablet 09/01/19 Unknown Rx Pravastatin Sodium [Pravastatin] 20 mg PO QHS #60 tablet 09/01/19 Unknown Rx Pravastatin [Pravachol] 20 mg PO QHS #30 tablet 09/01/19 Unknown Rx Thiamine [Vitamin B-1] 100 mg PO QDAY #30 tablet 09/01/19 Unknown Rx amLODIPine 10 mg PO QDAY #30 tablet 09/01/19 Unknown Rx carvediloL [Coreg] 25 mg PO BID #60 tablet 09/01/19 Unknown Rx hydrALAZINE [Apresoline TAB] 50 mg PO Q8H #90 tablet 09/01/19 Unknown Rx levETIRAcetam [Keppra TAB] 750 mg PO BID #60 tablet 09/01/19 Unknown Rx Active Medications: Generic Name Dose Route Start Last Admin Trade Name Freq PRN Reason Stop Dose Admin Acetaminophen 650 mg 08/24/19 14:55 Tylenol PO Q4H PRN Pain MILD(1-3)/Fever >100.5/TORIBIO Acetaminophen/Hydrocodone Bitart 1 each 08/25/19 15:01 09/04/19 21:43 [place] 5/325 PO 1 each Q6H PRN Administration Pain, Moderate (4-6) Albuterol 2.5 mg 08/24/19 14:55 Proventil IH Q4HRT PRN Shortness Of Breath Aspirin 81 mg 08/25/19 10:00 09/05/19 09:16 Baby Aspirin PO 81 mg QDAY WILL Administration Carvedilol 25 mg 08/24/19 10:00 09/05/19 09:17 Coreg PO 25 mg BID WILL Administration Epoetin [place] 10,000 unit 08/28/19 13:00 08/31/19 13:12 Procrit SUB-Q 10,000 unit EDIE WILL Administration Folic Acid 1 mg 08/24/19 13:00 09/05/19 09:16 Folvite PO 1 mg QDAY WILL Administration Furosemide 40 mg 08/25/19 10:00 09/05/19 09:16 Lasix PO 40 mg QDAY WILL Administration Heparin Sodium (Porcine) 5,000 unit 08/24/19 22:00 09/05/19 09:17 Heparin SUB-Q 5,000 unit Q12HR WILL Administration Hydralazine HCl 50 mg 08/24/19 09:00 09/05/19 05:35 Apresoline PO 50 mg Q8HR WILL Administration Hydralazine HCl 20 mg 08/24/19 15:17 Apresoline IV Q4HR PRN SBP>170 or DBP>110 Sodium Chloride 100 mls @ 999 mls/hr 08/29/19 13:22 Nacl 0.9% IV EDIE PRN Hypotension Isosorbide Dinitrate 10 mg 08/26/19 12:00 09/04/19 22:18 Isordil Titradose PO 10 mg BID WILL Administration Levetiracetam 750 mg 08/24/19 10:00 09/05/19 09:16 Keppra PO 750 mg BID WILL Administration Morphine Sulfate 2 mg 08/24/19 14:55 09/02/19 04:20 Morphine IV 2 mg Q4H PRN Administration Pain, Moderate (4-6) Nicotine 14 mg 09/03/19 17:00 09/05/19 09:17 Habitrol TD 14 mg QDAY WILL Administration Nifedipine 60 mg 08/24/19 13:00 09/05/19 09:16 Procardia Xl PO 60 mg QDAY WILL Administration Ondansetron HCl 4 mg 08/24/19 14:55 08/25/19 15:27 Zofran IV 4 mg Q8H PRN Administration Nausea And Vomiting Phenol 1 spray 09/02/19 04:29 09/02/19 06:27 Chloraseptic MM 1 spray PRN PRN Administration Sore Throat Pravastatin Sodium 20 mg 08/24/19 22:00 09/04/19 21:41 Pravachol PO 20 mg QHS WILL Administration Sodium Chloride 10 ml 08/24/19 22:00 09/05/19 09:18 Sodium Chloride Flush Syringe 10 Ml IV 10 ml BID WILL Administration Sodium Chloride 10 ml 08/24/19 14:55 09/02/19 04:23 Sodium Chloride Flush Syringe 10 Ml IV 10 ml PRN PRN Administration LINE FLUSH Thiamine HCl 100 mg 08/24/19 13:00 09/05/19 09:16 Vitamin B-1 PO 100 mg QDAY WILL Administration Zolpidem Tartrate 5 mg 08/27/19 23:42 08/30/19 21:35 Ambien PO 5 mg QHS PRN Administration Sleep
[2019-09-05] MEDS: PRAVASTATIN 20 MG TAB PO SCH (22:45)
[2019-09-06] MEDS: hydrALAZINE 25 MG TAB PO SCH ×3 (05:31→21:44)
--- NOTE | 2019-09-06 09:38 | Progress Note ---
History Interval history: feels better, No more shortness of breath No chest pain Hospitalist Physical - Physical exam Narrative exam: Gen: Not in acute distress, lying in bed HEENT: Normocephalic, atraumatic Neck: supple, no JVD Heart: S1 and S2 reg, no murmurs, rubs or gallop Lungs: Clear to auscultation bilaterally, Abd: soft, non tender, non distended, normal BS, Ext: No edema, no clubbing, no cyanosis Neuro: Awake, alert, oriented X 3, No focal neurological signs - Constitutional Vitals: Temp Pulse Resp BP Pulse Ox 97.8 F 57 L 16 111/70 96 09/06/19 04:26 09/06/19 05:31 09/06/19 04:26 09/06/19 05:31 09/05/19 17:02 General appearance: Present: no acute distress Results - Labs CBC & Chem 7: 08/26/19 04:36 09/03/19 06:01 Labs: Laboratory Last Values WBC 3.9 K/mm3 (4.5-11.0) L 08/26/19 04:36 RBC 2.35 M/mm3 (3.65-5.03) L 08/26/19 04:36 Hgb 7.8 gm/dl (11.8-15.2) L 08/26/19 04:36 Hct 23.5 % (35.5-45.6) L 08/26/19 04:36 MCV 100 fl (84-94) H 08/26/19 04:36 MCH 33 pg (28-32) H 08/26/19 04:36 MCHC 33 % (32-34) 08/26/19 04:36 RDW 16.6 % (13.2-15.2) H 08/26/19 04:36 Plt Count 223 K/mm3 (140-440) 08/26/19 04:36 Lymph % (Auto) 7.4 % (13.4-35.0) L 08/26/19 04:36 [place] % (Auto) 5.3 % (0.0-7.3) 08/26/19 04:36 Eos % (Auto) 1.8 % (0.0-4.3) 08/26/19 04:36 Baso % (Auto) 0.7 % (0.0-1.8) 08/26/19 04:36 Lymph # 0.3 K/mm3 (1.2-5.4) L 08/26/19 04:36 [place] # 0.2 K/mm3 (0.0-0.8) 08/26/19 04:36 Eos # 0.1 K/mm3 (0.0-0.4) 08/26/19 04:36 Baso # 0.0 K/mm3 (0.0-0.1) 08/26/19 04:36 Seg Neutrophils % 84.8 % (40.0-70.0) H 08/26/19 04:36 Seg Neutrophils # 3.3 K/mm3 (1.8-7.7) 08/26/19 04:36 PT 13.8 Sec. (12.2-14.9) 08/24/19 06:30 INR 1.07 (0.87-1.13) 08/24/19 06:30 APTT 27.8 Sec. (24.2-36.6) 08/24/19 06:30 Sodium 140 mmol/L (137-145) 09/03/19 06:01 Potassium 4.3 mmol/L (3.6-5.0) 09/03/19 06:01 Chloride 100.3 mmol/L (98-107) 09/03/19 06:01 Carbon Dioxide 23 mmol/L (22-30) 09/03/19 06:01 Anion Gap 21 mmol/L 09/03/19 06:01 BUN 31 mg/dL (9-20) H 09/03/19 06:01 Creatinine 4.0 mg/dL (0.8-1.5) H 09/03/19 06:01 Estimated GFR 19 ml/min 09/03/19 06:01 BUN/Creatinine Ratio 8 % 09/03/19 06:01 Glucose 83 mg/dL (75-100) 09/03/19 06:01 Calcium 8.5 mg/dL (8.4-10.2) 09/03/19 06:01 Phosphorus 5.00 mg/dL (2.5-4.5) H 08/26/19 04:36 Magnesium 1.50 mg/dL (1.7-2.3) L 08/24/19 06:30 Total Bilirubin < 0.20 mg/dL (0.1-1.2) 08/24/19 06:30 AST 25 units/L (5-40) 08/24/19 06:30 ALT 45 units/L (7-56) 08/24/19 06:30 Alkaline Phosphatase 165 units/L (35-129) H 08/24/19 06:30 Total Creatine Kinase 154 units/L (55-170) 08/24/19 06:30 Troponin T 0.031 ng/mL (0.00-0.029) H 08/24/19 06:30 Total Protein 6.5 g/dL (6.3-8.2) 08/24/19 06:30 Albumin 3.7 g/dL (3.9-5) L 08/24/19 06:30 Albumin/Globulin Ratio 1.3 % 08/24/19 06:30 Triglycerides 65 mg/dL (2-149) 08/24/19 06:30 Cholesterol 127 mg/dL (50-199) 08/24/19 06:30 LDL Cholesterol Direct 69 mg/dL (50-130) 08/24/19 06:30 HDL Cholesterol 53 mg/dL (40-59) 08/24/19 06:30 Cholesterol/HDL Ratio 2.39 % 08/24/19 06:30 Urine Color Yellow (Yellow) 08/24/19 Unknown Urine Turbidity Clear (Clear) 08/24/19 Unknown Urine pH 5.0 (5.0-7.0) 08/24/19 Unknown Ur Specific [employer] [place] 1.014 (1.003-1.030) 08/24/19 Unknown Urine Protein >2000 mg dl mg/dL (Negative) 08/24/19 Unknown Urine Glucose (UA) 50 mg/dL (Negative) 08/24/19 Unknown Urine Ketones Neg mg/dL (Negative) 08/24/19 Unknown Urine Blood Sm (Negative) 08/24/19 Unknown Urine Nitrite Neg (Negative) 08/24/19 Unknown Urine Bilirubin Neg (Negative) 08/24/19 Unknown Urine Urobilinogen < 2.0 mg/dL (<2.0) 08/24/19 Unknown Ur Leukocyte Esterase Neg (Negative) 08/24/19 Unknown Urine WBC (Auto) 2.0 /HPF (0.0-6.0) 08/24/19 Unknown Urine RBC (Auto) 2.0 /HPF (0.0-6.0) 08/24/19 Unknown Urine Creatinine 65.7 mg/dL (0.1-20.0) H 08/25/19 22:10 Protein/Creatinin Ratio 1.31 08/25/19 22:10 Urine Sodium 81 mmol/L 08/25/19 22:10 Urine Total Protein 86 mg/dL (5-11.8) H 08/25/19 22:10 Hepatitis A IgM Ab Non-reactive (NonReactive) 08/26/19 10:12 Hep Bs Antigen Non-reactive (Negative) 08/26/19 10:12 Hep B Core IgM Ab Non-reactive (NonReactive) 08/26/19 10:12 Hepatitis C Antibody Non-reactive (NonReactive) 08/26/19 10:12 Active Medications - Current Medications Current Medications: Generic Name Dose Route Start Last Admin Trade Name Freq PRN Reason Stop Dose Admin Acetaminophen 650 mg 08/24/19 14:55 Tylenol PO Q4H PRN Pain MILD(1-3)/Fever >100.5/TORIBIO Acetaminophen/Hydrocodone Bitart 1 each 08/25/19 15:01 09/04/19 21:43 [place] 5/325 PO 1 each Q6H PRN Administration Pain, Moderate (4-6) Albuterol 2.5 mg 08/24/19 14:55 Proventil IH Q4HRT PRN Shortness Of Breath Aspirin 81 mg 08/25/19 10:00 09/05/19 09:16 Baby Aspirin PO 81 mg QDAY WILL Administration Carvedilol 25 mg 08/24/19 10:00 09/05/19 22:45 Coreg PO 25 mg BID WILL Administration Epoetin Leandro 10,000 unit 08/28/19 13:00 08/31/19 13:12 Procrit SUB-Q 10,000 unit EDIE WILL Administration Folic Acid 1 mg 08/24/19 13:00 09/05/19 09:16 Folvite PO 1 mg QDAY WILL Administration Furosemide 40 mg 08/25/19 10:00 09/05/19 09:16 Lasix PO 40 mg QDAY WILL Administration Heparin Sodium (Porcine) 5,000 unit 08/24/19 22:00 09/05/19 22:47 Heparin SUB-Q 5,000 unit Q12HR WILL Administration Hydralazine HCl 50 mg 08/24/19 09:00 09/06/19 05:31 Apresoline PO 50 mg Q8HR WILL Administration Hydralazine HCl 20 mg 08/24/19 15:17 Apresoline IV Q4HR PRN SBP>170 or DBP>110 Sodium Chloride 100 mls @ 999 mls/hr 08/29/19 13:22 Nacl 0.9% IV EDIE PRN Hypotension Isosorbide Dinitrate 10 mg 08/26/19 12:00 09/05/19 22:46 Isordil Titradose PO 10 mg BID WILL Administration Levetiracetam 750 mg 08/24/19 10:00 09/05/19 22:46 Keppra PO 750 mg BID WILL Administration Morphine Sulfate 2 mg 08/24/19 14:55 09/02/19 04:20 Morphine IV 2 mg Q4H PRN Administration Pain, Moderate (4-6) Nicotine 14 mg 09/03/19 17:00 09/05/19 09:17 Habitrol TD 14 mg QDAY WILL Administration Nifedipine 60 mg 08/24/19 13:00 09/05/19 09:16 Procardia Xl PO 60 mg QDAY WILL Administration Ondansetron HCl 4 mg 08/24/19 14:55 08/25/19 15:27 Zofran IV 4 mg Q8H PRN Administration Nausea And Vomiting Phenol 1 spray 09/02/19 04:29 09/02/19 06:27 Chloraseptic MM 1 spray PRN PRN Administration Sore Throat Pravastatin Sodium 20 mg 08/24/19 22:00 09/05/19 22:45 Pravachol PO 20 mg QHS WILL Administration Sodium Chloride 10 ml 08/24/19 22:00 09/05/19 22:46 Sodium Chloride Flush Syringe 10 Ml IV 10 ml BID WILL Administration Sodium Chloride 10 ml 08/24/19 14:55 09/02/19 04:23 Sodium Chloride Flush Syringe 10 Ml IV 10 ml PRN PRN Administration LINE FLUSH Thiamine HCl 100 mg 08/24/19 13:00 09/05/19 09:16 Vitamin B-1 PO 100 mg QDAY WILL Administration Zolpidem Tartrate 5 mg 08/27/19 23:42 08/30/19 21:35 Ambien PO 5 mg QHS PRN Administration Sleep Nutrition/Malnutrition Assess - Dietary Evaluation Nutrition/Malnutrition Findings: Nutrition Notes Start: 08/31/19 14:12 Freq: Status: Active Protocol: Document 08/31/19 14:12 CT (Rec: 08/31/19 14:27 CT [id number]) Co-Sign 08/31/19 14:12 LP Nutrition Notes Need for Assessment generated from: LOS,Education Initial or Follow up Assessment Current Diagnosis Hypertension,Heart Failure Other Pertinent Diagnosis ESRD on HD, pulmonary edema, medical noncompliance, seizure disorder Current Diet Renal Labs/Tests BUN 45 Creatinine 4.9 Pertinent Medications Keppra Lasix Height 5 ft 7 in Weight 74 kg Usual Body Weight 68.039 kg [place] Body Weight (kg) 67.27 BMI 25.5 Intake Prior to Admission Good Weight Status Overweight Subjective/Other Information LOS assessment. Pt was eating his lunch at time of visit and requested more, was able to locate RN to get pt another tray. Pt was asked if he wanted double portions and he said yes. Pt is eating 100% of meals and has a good appetite. Education on renal diet was given to pt. Pt stated that he can't read d/t not having reading glasses. Burn Absent Trauma Absent GI Symptoms None Current % PO Good (75-100%) Minimum of two criteria No physical signs of malnutrition #1 Nutrition Diagnosis Food and nutrition-related knowledge deficit Etiology no previous knowledge on renal diet As Evidenced by Signs and Symptoms pt acceptance of renal diet discussion and handout Is patient on ventilator? No Is Patient Ambulatory and/or Out of Bed Yes REE-([facility]-ambulatory/OOB) [ 1974.219 [id number]] Calculation Used for Recommendations [facility] Additional Notes Protein: >89 g/kg/day (>1.2 g/ kg/day) Fluid: urine output + 1000 ml /day Nutrition Intervention Change Diet Order: Continue Renal with double portions Teaching Recipient Patient Learning Readiness Fair Teaching Methods Discussion,Handout Response to Teaching Reinforcement needed Education Handouts Provided Chronic Kidney Disease Nutrition Barriers to Learning Visual,Motivation RD phone number provided Yes Patient aware of follow up options Yes Goal #1 Acceptance and understanding of diet education Revisit per MD consult or patient Sign Off request:
[2019-09-06] MEDS: HYDROcodone/ACETAMINOPHEN 5-325 MG TAB PO PRN (10:03)
[2019-09-06] MEDS: THIAMINE 100 MG TAB PO SCH (10:04)
[2019-09-06] MEDS: FUROSEMIDE 40 MG TAB PO SCH (10:04)
[2019-09-06] MEDS: levETIRAcetam 500 MG TAB PO SCH ×2 (10:04→21:45)
[2019-09-06] MEDS: FOLIC ACID 1 MG TAB PO SCH (10:04)
[2019-09-06] MEDS: ASPIRIN 81 MG TAB CHEW PO SCH (10:04)
[2019-09-06] MEDS: NICOTINE 14 MG/24 HR PATCH TD SCH (10:05)
[2019-09-06] MEDS: HEPARIN 5,000 UNIT/1 ML VIAL SUB-Q SCH ×2 (10:06→21:48)
[2019-09-06] MEDS: carvediloL 25 MG TAB PO SCH ×2 (10:23→21:47)
[2019-09-06] MEDS: ISOSORBIDE DINITRATE 10 MG TAB PO SCH ×2 (10:23→21:56)
--- NOTE | 2019-09-06 15:18 | Progress Note ---
Assessment and Plan Acute on chronic systolic heart failure ESRD, now on HD Pulmonary Edema Left simple renal cyst Hypertension Metabolic Acidosis Anemia Prescription Non-compliance Plan: - No acute indication for HD today - HD tomorrow for UF and clearance - Assess need for HD on daily basis - Epogen dosing for anemia management - S/p Right IJ Perm catheter placement by Dr Murphy on 08/27/19 - On Lasix 40 mg po daily, adjust as needed - Consulted CM for outpatient dialysis placement, can be discharged from renal standpoint when outpatient HD is secured - Renally dose meds - Strict I&O - Renal plan d/w Dr Bettencourt Subjective Date of service: 09/06/19 Principal diagnosis: ESRD Interval history: Pt seen in bed, states feels ok, no acute distress, no family at bedside Objective - Vital Signs Vital signs: Vital Signs - 12hr 09/06/19 09/06/19 09/06/19 04:26 05:31 10:23 Temperature 97.8 F Pulse Rate 57 L 70 Respiratory 16 Rate Blood Pressure 111/70 111/70 118/69 Blood Pressure [Right] O2 Sat by Pulse Oximetry 09/06/19 12:40 Temperature 98.1 F Pulse Rate 66 Respiratory 18 Rate Blood Pressure Blood Pressure 117/77 [Right] O2 Sat by Pulse 97 Oximetry - General Appearance General appearance: well-developed EENT: ATNC Neck: no JVD Respiratory: Present: Decreased Breath Sounds Cardiology: regular, S1S2, other (ACCESS: Right IJ Perm Catheter intact) Gastrointestinal: normoactive bowel sounds Integumentary: warm and dry Neurologic: alert and oriented x3 Musculoskeletal: other (no edema to BLE) Psychiatric: cooperative - Lab 08/26/19 04:36 09/03/19 06:01 Most recent lab results Calcium 8.5 mg/dL (8.4-10.2) 09/03/19 06:01 Phosphorus 5.00 mg/dL (2.5-4.5) H 08/26/19 04:36 Magnesium 1.50 mg/dL (1.7-2.3) L 08/24/19 06:30 Urine Creatinine 65.7 mg/dL (0.1-20.0) H 08/25/19 22:10 Urine Sodium 81 mmol/L 08/25/19 22:10 Urine Total Protein 86 mg/dL (5-11.8) H 08/25/19 22:10 Medications & Allergies - Medications Allergies/Adverse Reactions: Allergies No Known Allergies Allergy (Verified 04/09/19 13:12) Home Medications: Home Medications Medication Instructions Recorded Confirmed Last Taken Type Benzonatate [Tessalon Perles] 100 mg PO Q8HR #10 capsule 08/10/19 08/24/19 Unknown Rx Aspirin [Aspirin BABY CHEW TAB] 81 mg PO QDAY #30 tab.chew 09/01/19 Unknown Rx Epoetin Leandro 10,000 Unit [Procrit] 10,000 unit SUB-Q EDIE vial 09/01/19 Unknown Rx Folic Acid [Folvite] 1 mg PO QDAY #30 tablet 09/01/19 Unknown Rx Furosemide [Lasix TAB] 40 mg PO QDAY tablet 09/01/19 Unknown Rx Isosorbide Dinitrate [Isordil 10 mg PO BID #30 tablet 09/01/19 Unknown Rx Titradose] NIFEdipine XL [Procardia Xl] 60 mg PO QDAY #30 tablet 09/01/19 Unknown Rx Pravastatin Sodium [Pravastatin] 20 mg PO QHS #60 tablet 09/01/19 Unknown Rx Pravastatin [Pravachol] 20 mg PO QHS #30 tablet 09/01/19 Unknown Rx Thiamine [Vitamin B-1] 100 mg PO QDAY #30 tablet 09/01/19 Unknown Rx amLODIPine 10 mg PO QDAY #30 tablet 09/01/19 Unknown Rx carvediloL [Coreg] 25 mg PO BID #60 tablet 09/01/19 Unknown Rx hydrALAZINE [Apresoline TAB] 50 mg PO Q8H #90 tablet 09/01/19 Unknown Rx levETIRAcetam [Keppra TAB] 750 mg PO BID #60 tablet 09/01/19 Unknown Rx Active Medications: Generic Name Dose Route Start Last Admin Trade Name Freq PRN Reason Stop Dose Admin Acetaminophen 650 mg 08/24/19 14:55 Tylenol PO Q4H PRN Pain MILD(1-3)/Fever >100.5/TORIBIO Acetaminophen/Hydrocodone Bitart 1 each 08/25/19 15:01 09/06/19 10:03 [place] 5/325 PO 1 each Q6H PRN Administration Pain, Moderate (4-6) Albuterol 2.5 mg 08/24/19 14:55 Proventil IH Q4HRT PRN Shortness Of Breath Aspirin 81 mg 08/25/19 10:00 09/06/19 10:04 Baby Aspirin PO 81 mg QDAY WILL Administration Carvedilol 25 mg 08/24/19 10:00 09/06/19 10:23 Coreg PO 25 mg BID WILL Administration Epoetin Leandro 10,000 unit 08/28/19 13:00 08/31/19 13:12 Procrit SUB-Q 10,000 unit EDIE WILL Administration Folic Acid 1 mg 08/24/19 13:00 09/06/19 10:04 Folvite PO 1 mg QDAY WILL Administration Furosemide 40 mg 08/25/19 10:00 09/06/19 10:04 Lasix PO 40 mg QDAY WILL Administration Heparin Sodium (Porcine) 5,000 unit 08/24/19 22:00 09/06/19 10:06 Heparin SUB-Q 5,000 unit Q12HR WILL Administration Hydralazine HCl 50 mg 08/24/19 09:00 09/06/19 14:00 Apresoline PO 50 mg Q8HR WILL Administration Hydralazine HCl 20 mg 08/24/19 15:17 Apresoline IV Q4HR PRN SBP>170 or DBP>110 Sodium Chloride 100 mls @ 999 mls/hr 08/29/19 13:22 Nacl 0.9% IV EDIE PRN Hypotension Isosorbide Dinitrate 10 mg 08/26/19 12:00 09/06/19 10:23 Isordil Titradose PO 10 mg BID WILL Administration Levetiracetam 750 mg 08/24/19 10:00 09/06/19 10:04 Keppra PO 750 mg BID WILL Administration Morphine Sulfate 2 mg 08/24/19 14:55 09/02/19 04:20 Morphine IV 2 mg Q4H PRN Administration Pain, Moderate (4-6) Nicotine 14 mg 09/03/19 17:00 09/06/19 10:05 Habitrol TD 14 mg QDAY [facility] Administration Ondansetron HCl 4 mg 08/24/19 14:55 08/25/19 15:27 Zofran IV 4 mg Q8H PRN Administration Nausea And Vomiting Phenol 1 spray 09/02/19 04:29 09/02/19 06:27 Chloraseptic MM 1 spray PRN PRN Administration Sore Throat Pravastatin Sodium 20 mg 08/24/19 22:00 09/05/19 22:45 Pravachol PO 20 mg QHS WILL Administration Sodium Chloride 10 ml 08/24/19 22:00 09/06/19 10:05 Sodium Chloride Flush Syringe 10 Ml IV 10 ml BID WILL Administration Sodium Chloride 10 ml 08/24/19 14:55 09/02/19 04:23 Sodium Chloride Flush Syringe 10 Ml IV 10 ml PRN PRN Administration LINE FLUSH Thiamine HCl 100 mg 08/24/19 13:00 09/06/19 10:04 Vitamin B-1 PO 100 mg QDAY WILL Administration Zolpidem Tartrate 5 mg 08/27/19 23:42 08/30/19 21:35 Ambien PO 5 mg QHS PRN Administration Sleep
[2019-09-06] MEDS: PRAVASTATIN 20 MG TAB PO SCH (21:47)
[2019-09-07] MEDS: hydrALAZINE 25 MG TAB PO SCH ×2 (06:19→14:28)
[2019-09-07] MEDS: HEPARIN 5,000 UNIT/1 ML VIAL SUB-Q SCH (10:42)
--- NOTE | 2019-09-07 11:30 | Progress Note ---
Assessment and Plan Acute on chronic systolic heart failure ESRD on HD Pulmonary Edema Hypertension Metabolic Acidosis Prescription Non-compliance Plan: - HD today for clearance and volume removal - S/p Right IJ Perm catheter placement by Dr Murphy on 08/27/19 - On Epogen 10,000 units Sq TIW - Spoke to Dr Ravi, he is accepted in [facility], can be discharged from renal standpoint - Renally dose medications - Strict I&O monitoring - Obtain daily weights Zach paulino MD [phone] Subjective Date of service: 09/07/19 Principal diagnosis: ESRD Interval history: was in dialysis this AM Objective - Vital Signs Vital signs: Vital Signs - 12hr 09/07/19 09/07/19 09/07/19 06:15 06:19 09:38 Temperature 98.5 F 98.4 F Pulse Rate 64 63 70 Respiratory 20 16 Rate Blood Pressure 140/86 140/86 130/64 O2 Sat by Pulse 96 Oximetry 09/07/19 09/07/19 09/07/19 09:45 10:00 10:15 Temperature Pulse Rate 70 74 76 Respiratory Rate Blood Pressure 112/75 98/58 105/63 O2 Sat by Pulse Oximetry 09/07/19 09/07/19 09/07/19 10:30 10:45 11:00 Temperature Pulse Rate 68 67 60 Respiratory Rate Blood Pressure 124/66 158/76 116/71 O2 Sat by Pulse Oximetry 09/07/19 11:15 Temperature Pulse Rate 62 Respiratory Rate Blood Pressure 114/70 O2 Sat by Pulse Oximetry - Lab 08/26/19 04:36 09/03/19 06:01 Most recent lab results Calcium 8.5 mg/dL (8.4-10.2) 09/03/19 06:01 Phosphorus 5.00 mg/dL (2.5-4.5) H 08/26/19 04:36 Magnesium 1.50 mg/dL (1.7-2.3) L 08/24/19 06:30 Urine Creatinine 65.7 mg/dL (0.1-20.0) H 08/25/19 22:10 Urine Sodium 81 mmol/L 08/25/19 22:10 Urine Total Protein 86 mg/dL (5-11.8) H 08/25/19 22:10 Medications & Allergies - Medications Allergies/Adverse Reactions: Allergies No Known Allergies Allergy (Verified 04/09/19 13:12) Home Medications: Home Medications Medication Instructions Recorded Confirmed Last Taken Type Benzonatate [Tessalon Perles] 100 mg PO Q8HR #10 capsule 08/10/19 08/24/19 Unknown Rx Aspirin [Aspirin BABY CHEW TAB] 81 mg PO QDAY #30 tab.chew 09/01/19 Unknown Rx Epoetin Leandro 10,000 Unit [Procrit] 10,000 unit SUB-Q EDIE vial 09/01/19 Unknown Rx Folic Acid [Folvite] 1 mg PO QDAY #30 tablet 09/01/19 Unknown Rx Furosemide [Lasix TAB] 40 mg PO QDAY tablet 09/01/19 Unknown Rx Isosorbide Dinitrate [Isordil 10 mg PO BID #30 tablet 09/01/19 Unknown Rx Titradose] NIFEdipine XL [Procardia Xl] 60 mg PO QDAY #30 tablet 09/01/19 Unknown Rx Pravastatin Sodium [Pravastatin] 20 mg PO QHS #60 tablet 09/01/19 Unknown Rx Pravastatin [Pravachol] 20 mg PO QHS #30 tablet 09/01/19 Unknown Rx Thiamine [Vitamin B-1] 100 mg PO QDAY #30 tablet 09/01/19 Unknown Rx amLODIPine 10 mg PO QDAY #30 tablet 09/01/19 Unknown Rx carvediloL [Coreg] 25 mg PO BID #60 tablet 09/01/19 Unknown Rx hydrALAZINE [Apresoline TAB] 50 mg PO Q8H #90 tablet 09/01/19 Unknown Rx levETIRAcetam [Keppra TAB] 750 mg PO BID #60 tablet 09/01/19 Unknown Rx Active Medications: Generic Name Dose Route Start Last Admin Trade Name Freq PRN Reason Stop Dose Admin Acetaminophen 650 mg 08/24/19 14:55 Tylenol PO Q4H PRN Pain MILD(1-3)/Fever >100.5/TORIBIO Acetaminophen/Hydrocodone Bitart 1 each 08/25/19 15:01 09/06/19 10:03 [place] 5/325 PO 1 each Q6H PRN Administration Pain, Moderate (4-6) Albuterol 2.5 mg 08/24/19 14:55 Proventil IH Q4HRT PRN Shortness Of Breath Aspirin 81 mg 08/25/19 10:00 09/06/19 10:04 Baby Aspirin PO 81 mg QDAY WILL Administration Carvedilol 25 mg 08/24/19 10:00 09/06/19 21:47 Coreg PO 25 mg BID WILL Administration Epoetin Leandro 10,000 unit 08/28/19 13:00 08/31/19 13:12 Procrit SUB-Q 10,000 unit EDIE WILL Administration Folic Acid 1 mg 08/24/19 13:00 09/06/19 10:04 Folvite PO 1 mg QDAY WILL Administration Furosemide 40 mg 08/25/19 10:00 09/06/19 10:04 Lasix PO 40 mg QDAY WILL Administration Heparin Sodium (Porcine) 5,000 unit 08/24/19 22:00 09/06/19 21:48 Heparin SUB-Q 5,000 unit Q12HR WILL Administration Hydralazine HCl 50 mg 08/24/19 09:00 09/07/19 06:19 Apresoline PO 50 mg Q8HR WILL Administration Hydralazine HCl 20 mg 08/24/19 15:17 Apresoline IV Q4HR PRN SBP>170 or DBP>110 Sodium Chloride 100 mls @ 999 mls/hr 08/29/19 13:22 Nacl 0.9% IV EDIE PRN Hypotension Isosorbide Dinitrate 10 mg 08/26/19 12:00 09/06/19 21:56 Isordil Titradose PO 10 mg BID WILL Administration Levetiracetam 750 mg 08/24/19 10:00 09/06/19 21:45 Keppra PO 750 mg BID WILL Administration Morphine Sulfate 2 mg 08/24/19 14:55 09/02/19 04:20 Morphine IV 2 mg Q4H PRN Administration Pain, Moderate (4-6) Nicotine 14 mg 09/03/19 17:00 09/06/19 10:05 Habitrol TD 14 mg QDAY WILL Administration Ondansetron HCl 4 mg 08/24/19 14:55 08/25/19 15:27 Zofran IV 4 mg Q8H PRN Administration Nausea And Vomiting Phenol 1 spray 09/02/19 04:29 09/02/19 06:27 Chloraseptic MM 1 spray PRN PRN Administration Sore Throat Pravastatin Sodium 20 mg 08/24/19 22:00 09/06/19 21:47 Pravachol PO 20 mg QHS WILL Administration Sodium Chloride 10 ml 08/24/19 22:00 09/06/19 21:45 Sodium Chloride Flush Syringe 10 Ml IV 10 ml BID WILL Administration Sodium Chloride 10 ml 08/24/19 14:55 09/02/19 04:23 Sodium Chloride Flush Syringe 10 Ml IV 10 ml PRN PRN Administration LINE FLUSH Thiamine HCl 100 mg 08/24/19 13:00 09/06/19 10:04 Vitamin B-1 PO 100 mg QDAY WILL Administration Zolpidem Tartrate 5 mg 08/27/19 23:42 08/30/19 21:35 Ambien PO 5 mg QHS PRN Administration Sleep
[2019-09-07] MEDS: HYDROcodone/ACETAMINOPHEN 5-325 MG TAB PO PRN (14:25)
[2019-09-07] MEDS: NICOTINE 14 MG/24 HR PATCH TD SCH (14:26)
[2019-09-07] MEDS: ASPIRIN 81 MG TAB CHEW PO SCH (14:27)
[2019-09-07] MEDS: carvediloL 25 MG TAB PO SCH (14:27)
[2019-09-07] MEDS: ISOSORBIDE DINITRATE 10 MG TAB PO SCH (14:27)
[2019-09-07 14:28] VITALS: BP 120/77
[2019-09-07] MEDS: levETIRAcetam 500 MG TAB PO SCH (14:28)
[2019-09-07] MEDS: FOLIC ACID 1 MG TAB PO SCH (14:28)
[2019-09-07] MEDS: FUROSEMIDE 40 MG TAB PO SCH (14:28)
[2019-09-07] MEDS: THIAMINE 100 MG TAB PO SCH (14:31)
--- NOTE | 2019-09-07 15:42 | Discharge Summary ---
Providers - Providers Date of Admission: 08/24/19 07:31 Date of discharge: 09/07/19 Attending physician: ADY WILSON 08/24/19 08:14 Consult to Physician [CONS] Routine Comment: Consulting Provider: ALISON ROCHA Physician Instructions: Reason For Exam: CKD 08/25/19 20:25 Consult to Physician [CONS] Routine Comment: Consulting Provider: KAIA SALAZAR Physician Instructions: Reason For Exam: permcath placement 08/28/19 12:09 Consult to Case Management [CONS] Routine Services Needed at Discharge: Other Notified:: case management Comment:: outpatient dialysis placement - try [facility] in [place] 08/30/19 09:00 Consult to Case Management [CONS] Routine Services Needed at Discharge: Academic Coach Other Notified:: shreyl Was contact made?: No [facility] Reason for admission: acute on chronic systolic heart failure Condition: Serious Pertinent studies: Chest x-ray, EKG, ultrasound, Procedures: Vas-Cath placed for hemodialysis Hospital course: Patient is 58 yo with hypertension, chronic systolic CHF, m0rournk disorder. He presents with shortness of breath and leg swelling. He denies chest pain. he was just discharged from here exactly 2 weeks ago on 08/10/19. he states he did not fill any of prescriptions including lasix. In ED, he was diagnosed with acute respiratory failure, was put on BIPAP. CXR revealed pulmonary edema, CHF exacerbation. He was given Lasix iv. Also BP was 196/127 so was started on nitroglycerin drip. Patient now feels better, less shortness of breath, BP improved. Orders put in to admit to ICU. Patient was commenced on bronchodilators, diuresis, beta blockers, Acei. Had recent echocardiogram ejection fraction of 20-25%. Creatinine was found to be severely elevated to 6.4 with a BUN of 71. Nephrology consult was obtained. Ultrasound of the kidneys done. No obstructive disease identified. On echogenic kidneys identified. Calm and hemodialysis of the post Was placed. Creatinine improved to 3.7 with a BUN of 29. Shortness of breath improved. The patient was fairly elevated on admission improved to 127/70. Patient will be discharged to follow primary care physician, HDL was obtained for hemodialysis. He is to continue hemodialysis on outpatient basis had multiple hemodialysis while on admission. Disposition: DE-01 TO HOME OR SELFCARE Time spent for discharge: 38 min - Discharge Diagnoses (1) CHF exacerbation Status: Acute Qualifiers: (2) COPD exacerbation Status: Acute (3) Cardiorenal syndrome with renal failure Status: Acute (4) Acidosis, metabolic Status: Acute (5) Acute on chronic systolic (congestive) heart failure Status: Acute (6) Altered mental state Status: Acute Qualifiers: Altered mental status type: unspecified Qualified Code(s): R41.82 - Altered mental status, unspecified Core Measure Documentation - Palliative Care Palliative Care/ Comfort Measures: Not Applicable - Core Measures Any of the following diagnoses?: heart failure - Heart Failure Discharge Requirements IRMA/ARB for LVSD if EF <40%: Yes Beta vish at discharge: Yes Exam - Physical Exam Narrative exam: Constitutional: Well-nourished well-developed. In no distress Head: Normocephalic atraumatic Eyes: Pupils are equal round and reactive to light Nose: No enlarged turbinates, no septal deviation. Mouth: Moist mucous membranes. Neck: Supple no thyromegaly. No bruit. No JVD Heart: Regular rate and rhythm, S1-S2 normal. No rubs,z murmurs or gallop Lungs: Clear to auscultation bilaterally. no rales or rhonchi Abdomen: Soft, nontender. Bowel sound are present. Extremities: No edema, no cyanosis, no clubbing. Neuro: Alert oriented Oriented x3. No focal sensory or motor deficit. Skin: No rashes or hyperpigmented spots Musculoskeletal system: No joint pain or swelling Hematological: No petechia or subcutanous hemorrhages. Immunological: No multiple septic spots on the skin Lymphatic: No generalized lymphadenopathy Psychiatry: Euthymic. Calm. - Constitutional Vitals: Temp Pulse Resp BP Pulse Ox 98.4 F 62 16 120/77 96 09/07/19 13:00 09/07/19 14:28 09/07/19 13:00 09/07/19 14:28 09/07/19 06:15 Plan Activity: fall precautions Weight Bearing Status: Weight Bear as Tolerated Diet: low fat, low cholesterol, low salt Follow up with: DAVIS CASTANO MD [Primary Care Provider] - 7 Days Prescriptions: amLODIPine 10 mg PO QDAY #30 tablet hydrALAZINE [Apresoline TAB] 50 mg PO Q8H #90 tablet Aspirin [Aspirin BABY CHEW TAB] 81 mg PO QDAY #30 tab.chew carvediloL [Coreg] 25 mg PO BID #60 tablet Folic Acid [Folvite] 1 mg PO QDAY #30 tablet Isosorbide Dinitrate [Isordil Titradose] 10 mg PO BID #30 tablet levETIRAcetam [Keppra TAB] 750 mg PO BID #60 tablet Pravastatin Sodium [Pravastatin] 20 mg PO QHS #60 tablet NIFEdipine XL [Procardia Xl] 60 mg PO QDAY #30 tablet Thiamine [Vitamin B-1] 100 mg PO QDAY #30 tablet
[2019-09-07] MEDS ORDERED: SODIUM CHLORIDE*PRIMING MACHINE ONLY FOR DIALYSIS MC ONE (16:52)
== END 2019-09-07 18:00 | disposition home or self-care (01) | DRG 291 ==
LOC: ED 06:05 → CC1 07:31 → 4A 14:03 → 3A 09-04 16:45
PROVIDERS: ADMIT Internal Medicine; ATTEND Family Medicine
PROC: 5A09357 Assistance with Respiratory Ventilation, Less than 24 Consecutive Hours, Continuous Positive Airway Pressure (ICD-10-PCS; 2019-08-24)
PROC: 3E0234Z Introduction of Serum, Toxoid and Vaccine into Muscle, Percutaneous Approach (ICD-10-PCS; 2019-08-25)
PROC: 0JH63XZ Insertion of Tunneled Vascular Access Device into Chest Subcutaneous Tissue and Fascia, Percutaneous Approach (ICD-10-PCS; principal; 2019-08-27)
PROC: 02H633Z Insertion of Infusion Device into Right Atrium, Percutaneous Approach (ICD-10-PCS; 2019-08-27)
PROC: B5181ZA Fluoroscopy of Superior Vena Cava using Low Osmolar Contrast, Guidance (ICD-10-PCS; 2019-08-27)
PROC: B543ZZA Ultrasonography of Right Jugular Veins, Guidance (ICD-10-PCS; 2019-08-27)
PROC: 5A1D70Z Performance of Urinary Filtration, Intermittent, Less than 6 Hours Per Day (ICD-10-PCS; 2019-08-27)
PROC: 5A1D70Z Performance of Urinary Filtration, Intermittent, Less than 6 Hours Per Day (ICD-10-PCS; 2019-08-28)
PROC: 5A1D70Z Performance of Urinary Filtration, Intermittent, Less than 6 Hours Per Day (ICD-10-PCS; 2019-08-31)
PROC: 5A1D70Z Performance of Urinary Filtration, Intermittent, Less than 6 Hours Per Day (ICD-10-PCS; 2019-09-02)
PROC: 5A1D70Z Performance of Urinary Filtration, Intermittent, Less than 6 Hours Per Day (ICD-10-PCS; 2019-09-04)
PROC: 5A1D70Z Performance of Urinary Filtration, Intermittent, Less than 6 Hours Per Day (ICD-10-PCS; 2019-09-07)
DX: I13.2 Hypertensive heart and chronic kidney disease with heart failure and with stage 5 chronic kidney disease, or end stage renal disease (principal); I50.23 Acute on chronic systolic (congestive) heart failure; N18.6 End stage renal disease; N17.0 Acute kidney failure with tubular necrosis; J96.01 Acute respiratory failure with hypoxia; I16.1 Hypertensive emergency; E87.2 Acidosis; J44.1 Chronic obstructive pulmonary disease with (acute) exacerbation; D64.9 Anemia, unspecified; G40.909 Epilepsy, unspecified, not intractable, without status epilepticus; M19.90 Unspecified osteoarthritis, unspecified site; F17.200 Nicotine dependence, unspecified, uncomplicated; I42.0 Dilated cardiomyopathy; N28.1 Cyst of kidney, acquired; E87.5 Hyperkalemia; Z82.49 Family history of ischemic heart disease and other diseases of the circulatory system; Z79.899 Other long term (current) drug therapy; Z79.82 Long term (current) use of aspirin; Z91.14 Patient's other noncompliance with medication regimen; Z72.89 Other problems related to lifestyle; Z23 Encounter for immunization
CPT/HCPCS: 36415; 36558; 71045; 76770; 77001; 80048; 80053; 80061; 80074; 81001; 82550; 82570; 83735; 84100; 84156; 84300; 84484; 85025; 85027; 85610; 85730; 87116; 90686; 90732; 93005; 93010; 94644; 99406; G0378; A9270-GY; C1750; C1751; J0690; J0885; J1644; J1940; J2250; J2270; J2405; J2930; J3010; J3475; J7030; J7050

== ENCOUNTER 2019-09-17 13:46 | Inpatient (IN) | payer OTHER ==
--- NOTE | 2019-09-17 15:48 | Event Note ---
ED Screening Note Date of service: 09/17/19 Time: 15:47 ED Screening Note: This is a 58 y.o. M. that presents to the ER from dialysis for replacement of perm cath due to malfunction. The last time Dialysis Last Friday. Patient states he went Friday and they couldn't complete therapy due to port malfunctioning. This initial assessment/diagnostic orders/clinical plan/treatment(s) is/are subject to change based on patients health status, clinical progression and re- assessment by fellow clinical providers in the ED. Further treatment and workup at subsequent clinical providers discretion. Patient/guardian urged not to elope from the ED as their condition may be serious if not clinically assessed and managed. Initial orders include: Labs
[2019-09-17 18:56] LABS: Basophils % (Auto) 1.1 % (0.0-1.8); Eosinophils # (Auto) 0.1 K/mm3 (0.0-0.4); Hematocrit 25.1 % (35.5-45.6); Hemoglobin 8.3 gm/dl (11.8-15.2); Lymphocytes # (Auto) 1.2 K/mm3 (1.2-5.4); Lymphocytes % (Auto) 27.6 % (13.4-35.0); Mean Corpuscular HGB Conc 33 % (32-34); Mean Corpuscular Volume 102 fl (84-94); Monocytes # (Auto) 0.5 K/mm3 (0.0-0.8); Monocytes % (Auto) 10.9 % (0.0-7.3); Platelet Count 270 K/mm3 (140-440); Red Blood Count 2.45 M/mm3 (3.65-5.03); Red Cell Distribution Width 15.9 % (13.2-15.2)
[2019-09-17 19:06] LABS: INR 1.04 (0.87-1.13)
[2019-09-17 19:07] LABS: Partial Thromboplastin Time 26.4 Sec. (24.2-36.6)
[2019-09-17 19:15] LABS: Alanine Aminotransferase 6 units/L (7-56); Albumin 3.4 g/dL (3.9-5); BUN/Creatinine Ratio 9; Blood Urea Nitrogen 49 mg/dL (9-20); Calcium 8.3 mg/dL (8.4-10.2); Hemolysis Index 4
--- NOTE | 2019-09-17 20:08 | Emergency Department Report ---
ED General Adult HPI - General Chief complaint: Medical Clearance Stated complaint: CLOGGED PORT Time Seen by Provider: 09/17/19 15:47 Source: patient, EMS Mode of arrival: Wheelchair Limitations: No Limitations - History of Present Illness Initial comments: Patient is a 58-year-old mellitus emergency room with complaints of a all functioning dialysis catheter. Patient states she has a right chest permacath. Patient states on Friday his permanent Stopped working and called. Patient was advised to come to the hospital on Friday but never did. Patient has not had dialysis since Friday. Patient was able to get a partial dialysis done the day that his shunt started malfunction. Patient denies pain. Patient denies chest pain. Patient denies physical complaints. Patient I fever and chills. Patient denies headache. Patient has dialysis on Friday, Friday, Friday. -: Sudden Consistency: constant Improves with: none Worsens with: none Associated Symptoms: denies other symptoms Treatments Prior to Arrival: none - Related Data Previous Rx's Medication Instructions Recorded Last Taken Type Benzonatate [Tessalon Perles] 100 mg PO Q8HR #10 capsule 08/10/19 Unknown Rx Aspirin [Aspirin BABY CHEW TAB] 81 mg PO QDAY #30 tab.chew 09/01/19 Unknown Rx Epoetin Leandro 10,000 Unit [Procrit] 10,000 unit SUB-Q EDIE vial 09/01/19 Unknown Rx Folic Acid [Folvite] 1 mg PO QDAY #30 tablet 09/01/19 Unknown Rx Furosemide [Lasix TAB] 40 mg PO QDAY tablet 09/01/19 Unknown Rx Isosorbide Dinitrate [Isordil 10 mg PO BID #30 tablet 09/01/19 Unknown Rx Titradose] NIFEdipine XL [Procardia Xl] 60 mg PO QDAY #30 tablet 09/01/19 Unknown Rx Pravastatin Sodium [Pravastatin] 20 mg PO QHS #60 tablet 09/01/19 Unknown Rx Pravastatin [Pravachol] 20 mg PO QHS #30 tablet 09/01/19 Unknown Rx Thiamine [Vitamin B-1] 100 mg PO QDAY #30 tablet 09/01/19 Unknown Rx amLODIPine 10 mg PO QDAY #30 tablet 09/01/19 Unknown Rx carvediloL [Coreg] 25 mg PO BID #60 tablet 09/01/19 Unknown Rx hydrALAZINE [Apresoline TAB] 50 mg PO Q8H #90 tablet 09/01/19 Unknown Rx levETIRAcetam [Keppra TAB] 750 mg PO BID #60 tablet 09/01/19 Unknown Rx Allergies Allergy/AdvReac Type Severity Reaction Status Date / Time No Known Allergies Allergy Verified 04/09/19 13:12 ED Review of Systems ROS: Stated complaint: CLOGGED PORT Other details as noted in HPI Constitutional: denies: chills, fever Eyes: denies: eye pain, eye discharge, vision change ENT: denies: ear pain, throat pain Respiratory: denies: cough, shortness of breath, wheezing Cardiovascular: denies: chest pain, palpitations Endocrine: no symptoms reported Gastrointestinal: denies: abdominal pain, nausea, diarrhea Genitourinary: denies: urgency, dysuria Musculoskeletal: denies: back pain, joint swelling, arthralgia Skin: denies: rash, lesions Neurological: denies: headache, weakness, paresthesias Psychiatric: denies: anxiety, depression Hematological/Lymphatic: denies: easy bleeding, easy bruising ED Past Medical Hx - Past Medical History Previous Medical History?: Yes Hx Hypertension: Yes Hx Congestive Heart Failure: Yes Hx Arthritis: Yes (knees) Hx Seizures: Yes Hx COPD: Yes - Surgical History Past Surgical History?: Yes Additional Surgical History: rt chest permacath - Family History Family history: no significant - Social History Smoking Status: Current Every Day Smoker Substance Use Type: None, Marijuana - Medications Home Medications: Home Medications Medication Instructions Recorded Confirmed Last Taken Type Benzonatate [Tessalon Perles] 100 mg PO Q8HR #10 capsule 08/10/19 08/24/19 Unknown Rx Aspirin [Aspirin BABY CHEW TAB] 81 mg PO QDAY #30 tab.chew 09/01/19 Unknown Rx Epoetin Leandro 10,000 Unit [Procrit] 10,000 unit SUB-Q EDIE vial 09/01/19 Unknown Rx Folic Acid [Folvite] 1 mg PO QDAY #30 tablet 09/01/19 Unknown Rx Furosemide [Lasix TAB] 40 mg PO QDAY tablet 09/01/19 Unknown Rx Isosorbide Dinitrate [Isordil 10 mg PO BID #30 tablet 09/01/19 Unknown Rx Titradose] NIFEdipine XL [Procardia Xl] 60 mg PO QDAY #30 tablet 09/01/19 Unknown Rx Pravastatin Sodium [Pravastatin] 20 mg PO QHS #60 tablet 09/01/19 Unknown Rx Pravastatin [Pravachol] 20 mg PO QHS #30 tablet 09/01/19 Unknown Rx Thiamine [Vitamin B-1] 100 mg PO QDAY #30 tablet 09/01/19 Unknown Rx amLODIPine 10 mg PO QDAY #30 tablet 09/01/19 Unknown Rx carvediloL [Coreg] 25 mg PO BID #60 tablet 09/01/19 Unknown Rx hydrALAZINE [Apresoline TAB] 50 mg PO Q8H #90 tablet 09/01/19 Unknown Rx levETIRAcetam [Keppra TAB] 750 mg PO BID #60 tablet 09/01/19 Unknown Rx ED Physical Exam - General Limitations: No Limitations General appearance: alert, in no apparent distress - Head Head exam: Present: atraumatic, normocephalic - Eye Eye exam: Present: normal appearance - ENT ENT exam: Present: mucous membranes moist - Neck Neck exam: Present: normal inspection - Respiratory Respiratory exam: Present: normal lung sounds bilaterally. Absent: respiratory distress, wheezes, rales, rhonchi - Cardiovascular Cardiovascular Exam: Present: regular rate, normal rhythm. Absent: systolic murmur, diastolic murmur, rubs, gallop - GI/Abdominal GI/Abdominal exam: Present: soft, normal bowel sounds. Absent: distended, tenderness, guarding - Rectal Rectal exam: Present: deferred - Extremities Exam Extremities exam: Present: normal inspection - Back Exam Back exam: Present: normal inspection - Neurological Exam Neurological exam: Present: alert, oriented X3 - Psychiatric Psychiatric exam: Present: normal affect, normal mood - Skin Skin exam: Present: warm, dry, intact, normal color. Absent: rash ED Course Vital Signs 09/17/19 15:47 Temperature 99.2 F Pulse Rate 68 Respiratory 18 Rate Blood Pressure 146/89 O2 Sat by Pulse 97 Oximetry - Reevaluation(s) Reevaluation #1: I discussed all results and plan of care with patient. Patient agrees to plan of care and admission. Patient admitted to the hospitalist service. 09/17/19 20:57 - Consultations Consultation #1: Vascular surgery paged 09/17/19 20:08 I discussed case with vascular surgeon, Dr. EDEN and he recommends admission and he will see the patient in the morning. 09/17/19 20:52 Consultation #2: Nephrology paged 09/17/19 20:54 Consultation #3: Hospitalist consult for admission. Hospitalist admit patient. 09/17/19 21:[address] Kulkarni, nephrology. Dr. Richards says he'll see the patient in the morning. 09/17/19 21:16 ED Medical Decision Making - Lab Data Result diagrams: 09/17/19 18:32 09/17/19 18:32 - Medical Decision Making Patient is a 58-year-old male up since emergency room with complaints of malfunctioning dialysis access. Patient has a right chest permacath. Patient's last dialysis was Friday of this week. Patient's labs unremarkable and consistent with end-stage renal disease. Patient's electrolytes are normal. Patient is stable for admission. Nephrology and vascular surgery were consult while in the ER. - Differential Diagnosis missed dialysis, malfunctioning permacath, end-stage renal disease Critical Care Time: Yes Critical care time in (mins) excluding proc time.: 35 Critical care attestation.: If time is entered above; I have spent that time in minutes in the direct care of this critically ill patient, excluding procedure time. Critical Care Time: 35 minutes ED Disposition Clinical Impression: ESRD (end stage renal disease), Missed dialysis Dialysis AV fistula malfunction Qualifiers: Encounter type: initial encounter Qualified Code(s): T82.590A - Other mechanical complication of surgically created arteriovenous fistula, initial encounter Anemia Qualifiers: Anemia type: due to chronic kidney disease Chronic kidney disease stage: on chronic dialysis Qualified Code(s): N18.6 - End stage renal disease Disposition: OP ADMIT IP TO THIS HOSP Is pt being admited?: Yes Does the pt Need Aspirin: No Condition: Critical Time of Disposition: 20:55
[2019-09-17] MEDS ORDERED: ACETAMINOPHEN 325 MG TAB PO PRN (21:53)
[2019-09-17] MEDS ORDERED: ONDANSETRON 4 MG/2 ML INJ IV PRN (21:55)
[2019-09-18 05:28] LABS: Calcium 8.4 mg/dL (8.4-10.2)
[2019-09-18] MEDS ORDERED: hydrALAZINE 20 MG/1 ML INJ IV PRN (06:46)
[2019-09-18] MEDS ORDERED: hydrALAZINE 20 MG/1 ML INJ IV ONE (07:00)
[2019-09-18] MEDS ORDERED: EPOETIN ALFA 10,000 UNIT/1 ML INJ SUB-Q SCH (07:00)
[2019-09-18] MEDS: levETIRAcetam 500 MG TAB PO SCH ×2 (09:07→21:57)
[2019-09-18] MEDS: FOLIC ACID 1 MG TAB PO SCH (09:07)
[2019-09-18] MEDS: ASPIRIN 81 MG TAB CHEW PO SCH (09:08)
[2019-09-18] MEDS: hydrALAZINE 25 MG TAB PO SCH ×3 (09:08→22:25)
[2019-09-18] MEDS: carvediloL 25 MG TAB PO SCH ×2 (09:08→21:57)
[2019-09-18] MEDS: THIAMINE 100 MG TAB PO SCH (09:08)
[2019-09-18] MEDS: amLODIPine 10 MG TAB PO SCH (09:09)
--- NOTE | 2019-09-18 09:43 | History and Physical Report ---
CHIEF COMPLAINT: Malfunctioning of the Perm-A-Cath in the right chest wall area. HISTORY OF PRESENTING ILLNESS: The patient is a 58-year-old male with past medical history of end-stage renal disease, on dialysis, who went for dialysis yesterday 09/17/2019 and was unable to complete his dialysis because of nonfunctioning Perm-A-Cath in the right chest wall area and went for dialysis. There is no history of bleeding from this site. There was also no history of fever or chills, nausea or vomiting. The patient also denied history of shortness of breath or chest pain and was sent to the Emergency Room to be evaluated there for repair of the Perm-A-Cath. PAST MEDICAL HISTORY: Pertinent for hypertension, congestive heart failure, arthritis, seizure disorder, COPD and end-stage renal disease. PAST SURGICAL HISTORY: Pertinent for right chest Perm-A-Cath placement for dialysis. FAMILY HISTORY: Reviewed and noncontributory. SOCIAL HISTORY: The patient smokes marijuana and it is not clear whether the patient drinks alcohol. MEDICATIONS: The patient is on benzonatate 100 mg by mouth every 8 hours, aspirin chewable 81 mg by mouth daily, Procrit 10,000 units subcutaneous ____, folic acid 1 mg by mouth daily, furosemide 40 mg by mouth daily, isosorbide dinitrate 10 mg by mouth twice daily, nifedipine XL or Procardia 60 mg by mouth daily, pravastatin 20 mg by mouth at bedtime, vitamin B1 100 mg by mouth daily, amlodipine 10 mg by mouth daily, carvedilol 25 mg by mouth twice daily, hydralazine 50 mg by mouth q. 8 hours and Keppra 750 mg by mouth twice daily. ALLERGIES: There are no known drug allergies. REVIEW OF SYSTEMS: CONSTITUTIONAL: There is fever, there is chills, but no diaphoresis. HEENT: There is no headache or sore throat. CARDIOVASCULAR SYSTEM: There is no chest pain or orthopnea. RESPIRATORY SYSTEM: There is no shortness of breath or cough. GASTROINTESTINAL SYSTEM: There is no nausea, no vomiting. No abdominal pain, diarrhea or constipation. NEUROLOGICAL SYSTEM: There is no numbness, no dizziness, no altered mental status. MUSCULOSKELETAL SYSTEM: There is no joint pain or swelling. DERMATOLOGICAL SYSTEM: There is no skin rash or itching. GENITOURINARY SYSTEM: There is dysuria, but no hematuria or flank pain. Rest of system review is normal. PHYSICAL EXAMINATION: GENERAL: At the time of exam, the patient was found to be alert, oriented x 3 and not in acute distress. VITAL SIGNS: At the initial time of presentation showed temperature of 99.2 degrees Fahrenheit, pulse of 68, respirations 18, blood pressure 146/89, O2 sat of 97% on room air. HEENT: Showed pupils to be equal, round and reactive to light and accommodating. Extraocular muscles are intact. NECK: Neck is supple with no JVD or carotid bruit. CARDIOVASCULAR SYSTEM: Showed normal first and second heart sounds with no gallops or murmurs. RESPIRATORY SYSTEM: Showed good air entry on both sides of the lungs with no abnormal breath sounds. GASTROINTESTINAL SYSTEM: Shows abdomen to be full, soft, nontender with no organomegaly or rigidity. NEUROLOGIC: Shows no focal deficit. MUSCULOSKELETAL SYSTEM: Show no joint swelling or tenderness. DERMATOLOGICAL SYSTEM: Show no skin rash. GENITOURINARY SYSTEM: Showing no costovertebral angle tenderness. PERTINENT LABORATORY AND IMAGING STUDIES: The patient did not have any imaging studies done at this time. Lab results: The patient's CBC showed low white count of 4400 with low hemoglobin of 8.3 and low hematocrit of 25.1 with high MCV of 102 and normal platelet count. CBC differential showing high monocyte count of 10.9%. The patient's coagulation studies came back unremarkable. Chemistry showed high BUN of 49 with high creatinine of 5.4 consistent with end-stage renal disease. The patient's rest of chemistry showed low albumin level of 3.4. DIAGNOSES: 1. Malfunctioning dialysis right chest wall Perm-A-Cath. 2. Anemia. 3. End-stage renal disease, on dialysis. PLAN OF CARE: 1. The patient will be admitted to medical/surgical kim. 2. The patient will continue vascular surgical consult with Dr. Venkatesh Saha. 3. The patient will continue nephrology consult with Dr. Kulkarni. 4. The patient will be on 2 g sodium diet. 5. The patient will be on p.r.n. medications like Tylenol 650 mg by mouth every 4 hours for fever and headache and will also be on IV Zofran 4 mg every 8 hours for nausea and vomiting. 6. The patient will remain n.p.o. until seen by the vascular surgeon, Dr. Saha for cleaning out of the Perm-A-Cath. 7. DVT prophylaxis will be through sequential compressive device. JOB# [id number] OCN/NTS
[2019-09-18] MEDS ORDERED: NIFEdipine XL 60 MG TAB PO SCH (10:00)
[2019-09-18] MEDS ORDERED: SODIUM CHLORIDE 0.9% 100 ML IV PRN (10:28)
[2019-09-18] MEDS ORDERED: ALBUMIN HUMAN 25% (25 GM/100 ML) INJ IV PRN (10:28)
--- NOTE | 2019-09-18 10:31 | Consultation ---
History of Present Illness - Reason for Consult Consult date: 09/18/19 end stage renal disease Requesting physician: MIKE MENDOZA III - History of Present Illness 58-year-old mellitus emergency room with complaints of a all functioning dialysis catheter. Patient states she has a right chest permacath. Patient states on Friday his permanent Stopped working and called. Patient was advised to come to the hospital on Friday but never did. Patient has not had dialysis since Friday. Patient was able to get a partial dialysis done the day that his shunt started malfunction. Patient denies pain. Patient denies chest pain. Patient denies physical complaints. Patient I fever and chills. Patient denies headache. Patient has dialysis on Friday, Friday, Friday. -: Sudden Consistency: constant Improves with: none Worsens with: none Associated Symptoms: denies other symptoms Treatments Prior to Arrival: none ROS: Stated complaint: CLOGGED PORT Other details as noted in HPI Constitutional: denies: chills, fever Eyes: denies: eye pain, eye discharge, vision change ENT: denies: ear pain, throat pain Respiratory: denies: cough, shortness of breath, wheezing Cardiovascular: denies: chest pain, palpitations Endocrine: no symptoms reported Gastrointestinal: denies: abdominal pain, nausea, diarrhea Genitourinary: denies: urgency, dysuria Musculoskeletal: denies: back pain, joint swelling, arthralgia Skin: denies: rash, lesions Neurological: denies: headache, weakness, paresthesias Psychiatric: denies: anxiety, depression Hematological/Lymphatic: denies: easy bleeding, easy bruising - Past Medical History Previous Medical History?: Yes Hx Hypertension: Yes Hx Congestive Heart Failure: Yes Hx Arthritis: Yes (knees) Hx Seizures: Yes Hx COPD: Yes - Surgical History Past Surgical History?: Yes Additional Surgical History: rt chest permacath - Family History Family history: no significant - Social History Smoking Status: Current Every Day Smoker Substance Use Type: None, Marijuana Medications and Allergies Allergies Allergy/AdvReac Type Severity Reaction Status Date / Time No Known Allergies Allergy Verified 04/09/19 13:12 Home Medications Medication Instructions Recorded Confirmed Last Taken Type Aspirin [Aspirin BABY CHEW TAB] 81 mg PO QDAY #30 tab.chew 09/01/19 09/17/19 Unknown Rx Epoetin Leandro 10,000 Unit [Procrit] 10,000 unit SUB-Q EDIE vial 09/01/19 09/17/19 Unknown Rx Folic Acid [Folvite] 1 mg PO QDAY #30 tablet 09/01/19 09/17/19 Unknown Rx Furosemide [Lasix TAB] 40 mg PO QDAY tablet 09/01/19 09/17/19 Unknown Rx Isosorbide Dinitrate [Isordil 10 mg PO BID #30 tablet 09/01/19 09/17/19 Unknown Rx Titradose] NIFEdipine XL [Procardia Xl] 60 mg PO QDAY #30 tablet 09/01/19 09/17/19 Unknown Rx Pravastatin Sodium [Pravastatin] 20 mg PO QHS #60 tablet 09/01/19 09/17/19 Unknown Rx Pravastatin [Pravachol] 20 mg PO QHS #30 tablet 09/01/19 09/17/19 Unknown Rx Thiamine [Vitamin B-1] 100 mg PO QDAY #30 tablet 09/01/19 09/17/19 Unknown Rx amLODIPine 10 mg PO QDAY #30 tablet 09/01/19 09/17/19 Unknown Rx carvediloL [Coreg] 25 mg PO BID #60 tablet 09/01/19 09/17/19 Unknown Rx hydrALAZINE [Apresoline TAB] 50 mg PO Q8H #90 tablet 09/01/19 09/17/19 Unknown Rx levETIRAcetam [Keppra TAB] 750 mg PO BID #60 tablet 09/01/19 09/17/19 Unknown Rx Active Meds: Active Medications Acetaminophen (Tylenol) 650 mg PO Q4H PRN PRN Reason: Fever >101 Albumin Human (Alburx 25% (Albumin)) 25 gm IV EDIE PRN PRN Reason: Hypotension Amlodipine Besylate (Amlodipine) 10 mg PO QDAY [facility] Last Admin: 09/18/19 09:09 Dose: 10 mg Documented by: Aspirin (Baby Aspirin) 81 mg PO QDAY [facility] Last Admin: 09/18/19 09:08 Dose: 81 mg Documented by: Carvedilol (Coreg) 25 mg PO BID [facility] Last Admin: 09/18/19 09:08 Dose: 25 mg Documented by: Epoetin Leandro (Procrit) 10,000 unit SUB-Q EDIE WILL Folic Acid (Folvite) 1 mg PO QDAY [facility] Last Admin: 09/18/19 09:07 Dose: 1 mg Documented by: Hydralazine HCl (Apresoline) 10 mg IV Q4HR PRN PRN Reason: Hypertension Hydralazine HCl (Apresoline) 50 mg PO Q8H [facility] Last Admin: 09/18/19 09:08 Dose: 50 mg Documented by: Sodium Chloride (Nacl 0.9%) 100 mls @ 999 mls/hr IV EDIE PRN PRN Reason: Hypotension Isosorbide Dinitrate (Isordil Titradose) 10 mg PO BID [facility] Levetiracetam (Keppra) 750 mg PO BID [facility] Last Admin: 09/18/19 09:07 Dose: 750 mg Documented by: Ondansetron HCl (Zofran) 4 mg IV Q8H PRN PRN Reason: Nausea And Vomiting Thiamine HCl (Vitamin B-1) 100 mg PO QDAY [facility] Last Admin: 09/18/19 09:08 Dose: 100 mg Documented by: Exam - Vital Signs Vital signs: Vital Signs Temp Pulse Resp BP Pulse Ox 99.2 F 68 18 146/89 97 09/17/19 15:47 09/17/19 15:47 09/17/19 15:47 09/17/19 15:47 09/17/19 15:47 - Physical Exam Narrative exam: - General Limitations: No Limitations General appearance: alert, in no apparent distress - Head Head exam: Present: atraumatic, normocephalic - Eye Eye exam: Present: normal appearance - ENT ENT exam: Present: mucous membranes moist - Neck Neck exam: Present: normal inspection - Respiratory Respiratory exam: Present: normal lung sounds bilaterally. Absent: respiratory distress, wheezes, rales, rhonchi - Cardiovascular Cardiovascular Exam: Present: regular rate, normal rhythm. Absent: systolic murmur, diastolic murmur, rubs, gallop - GI/Abdominal GI/Abdominal exam: Present: soft, normal bowel sounds. Absent: distended, tenderness, guarding - Rectal Rectal exam: Present: deferred - Extremities Exam Extremities exam: Present: normal inspection - Back Exam Back exam: Present: normal inspection - Neurological Exam Neurological exam: Present: alert, oriented X3 - Psychiatric Psychiatric exam: Present: normal affect, normal mood - Skin Skin exam: Present: warm, dry, intact, normal color. Absent: rash Results - Lab Results 09/17/19 18:32 09/18/19 04:18 Most recent lab results Calcium 8.4 mg/dL (8.4-10.2) 09/18/19 04:18 Assessment and Plan ESRD on HD Malfunctioning dialysis access Hypertension Metabolic Acidosis Prescription Non-compliance Plan: - vasc to assess Right IJ Perm catheter, placement by Dr Murphy on 08/27/19 - On Epogen 10,000 units Sq TIW dialysis once access in place - Renally dose medications - Strict I&O monitoring - Obtain daily weights - Continue to monitor - can dc home after dialysis
[2019-09-18] MEDS: ISOSORBIDE DINITRATE 10 MG TAB PO SCH ×2 (11:27→22:27)
--- NOTE | 2019-09-18 13:31 | Progress Note ---
Assessment and Plan 58-year-old mellitus emergency room with complaints of a all functioning dialysis catheter. Patient states she has a right chest permacath. Patient states on Friday his permanent Stopped working and called. Patient was advised to come to the hospital on Friday but never did. Patient has not had dialysis since Friday. Patient was able to get a partial dialysis done the day that his shunt started malfunction. Patient denies pain. Patient denies chest pain. Patient denies physical complaints. Patient I fever and chills. Patient denies headache. Patient has dialysis on Friday, Friday, Friday. Malfunctioning dialysis access ESRD on HD Anemia of chronic disease Hypertension Metabolic Acidosis Prescription Non-compliance Plan: - vasc to assess Right IJ Perm catheter, placement by Dr Murphy on 08/27/19 - On Epogen 10,000 units Sq TIW dialysis once access in place - Renally dose medications - Strict I&O monitoring - Obtain daily weights - Continue to monitor - DVT prophylaxis with heparin -Advanced care planning: Patient is full code - Disposition can dc home establishment of dialysis access and dialysis Subjective Date of service: 09/18/19 Principal diagnosis: Malfunction right IJ permacath, ESRD on HD Interval history: Patient lying flat in bed in no distress. Objective - Exam Narrative Exam: Constitutional: Well-nourished well-developed. In no distress. Has a right IJ permacath Head: Normocephalic atraumatic Eyes: Pupils are equal round and reactive to light Nose: No enlarged turbinates, no septal deviation. Mouth: Moist mucous membranes. Neck: Supple no thyromegaly. No bruit. No JVD Heart: Regular rate and rhythm, S1-S2 normal. No rubs murmurs or gallop Lungs: Clear to auscultation bilaterally. no rales or rhonchi Abdomen: Soft, nontender. Bowel sound are present. Extremities: No edema, no cyanosis, no clubbing. Neuro: Alert oriented Oriented x3. No focal sensory or motor deficit. Skin: No rashes or hyperpigmented spots Musculoskeletal system: No joint pain or swelling Hematological: No petechia or subcutanous hemorrhages. Immunological: No multiple septic spots on the skin Lymphatic: No generalized lymphadenopathy Psychiatry: Euthymic. Calm. - Constitutional Vitals: Vital Signs - 12hr 09/18/19 09/18/19 09/18/19 06:13 06:57 09:08 Temperature 98.3 F Pulse Rate 65 60 73 Respiratory 20 Rate Blood Pressure 189/110 189/110 161/95 O2 Sat by Pulse 96 Oximetry 09/18/19 09:09 Temperature Pulse Rate 73 Respiratory Rate Blood Pressure 161/95 O2 Sat by Pulse Oximetry - Labs CBC & Chem 7: 09/17/19 18:32 09/18/19 04:18 Labs: Abnormal lab results 09/17/19 09/17/19 09/18/19 Range/Units 18:32 18:32 04:18 WBC 4.4 L (4.5-11.0) K/mm3 RBC 2.45 L (3.65-5.03) M/mm3 Hgb 8.3 L (11.8-15.2) gm/dl Hct 25.1 L (35.5-45.6) % MCV 102 H (84-94) fl MCH 34 H (28-32) pg RDW 15.9 H (13.2-15.2) % [place] % (Auto) 10.9 H (0.0-7.3) % Sodium 148 H (137-145) mmol/L Chloride 108.7 H 113.2 H (98-107) mmol/L BUN 49 H 51 H (9-20) mg/dL Creatinine 5.4 H 5.3 H (0.8-1.5) mg/dL Glucose 104 H (75-100) mg/dL Calcium 8.3 L (8.4-10.2) mg/dL ALT 6 L (7-56) units/L Albumin 3.4 L (3.9-5) g/dL
--- NOTE | 2019-09-18 13:45 | Consultation ---
History of Present Illness - Reason for Consult Consult date: 09/18/19 - History of Present Illness HPI: 58yo male with ESRD on HD via right IJ permcath recently placed that presents after catheter malfunctioning last Friday. Patient has not undergone dialysis since this past Friday. Patient denies any chest pain or shortness of breath. ROS: as per HPI PE: NAD, A&Ox3 RRR non-labored respirations right IJ permcath intact with evidence of overlying infection no lower extremity edema noted labs reviewed, K+ 4.7 Plan patient with non-functioning catheter will attempt TPA to the catheter, if not successful will require catheter exchange patient with no immediate need for dialysis currently will tentatively schedule catheter exchange for Friday in TPA does not work Medications and Allergies Allergies Allergy/AdvReac Type Severity Reaction Status Date / Time No Known Allergies Allergy Verified 04/09/19 13:12 Home Medications Medication Instructions Recorded Confirmed Last Taken Type Aspirin [Aspirin BABY CHEW TAB] 81 mg PO QDAY #30 tab.chew 09/01/19 09/17/19 Unknown Rx Epoetin Leandro 10,000 Unit [Procrit] 10,000 unit SUB-Q EDIE vial 09/01/19 09/17/19 Unknown Rx Folic Acid [Folvite] 1 mg PO QDAY #30 tablet 09/01/19 09/17/19 Unknown Rx Furosemide [Lasix TAB] 40 mg PO QDAY tablet 09/01/19 09/17/19 Unknown Rx Isosorbide Dinitrate [Isordil 10 mg PO BID #30 tablet 09/01/19 09/17/19 Unknown Rx Titradose] NIFEdipine XL [Procardia Xl] 60 mg PO QDAY #30 tablet 09/01/19 09/17/19 Unknown Rx Pravastatin Sodium [Pravastatin] 20 mg PO QHS #60 tablet 09/01/19 09/17/19 Unkno wn Rx Pravastatin [Pravachol] 20 mg PO QHS #30 tablet 09/01/19 09/17/19 Unknown Rx Thiamine [Vitamin B-1] 100 mg PO QDAY #30 tablet 09/01/19 09/17/19 Unknown Rx amLODIPine 10 mg PO QDAY #30 tablet 09/01/19 09/17/19 Unknown Rx carvediloL [Coreg] 25 mg PO BID #60 tablet 09/01/19 09/17/19 Unknown Rx hydrALAZINE [Apresoline TAB] 50 mg PO Q8H #90 tablet 09/01/19 09/17/19 Unknown Rx levETIRAcetam [Keppra TAB] 750 mg PO BID #60 tablet 09/01/19 09/17/19 Unknown Rx Active Meds: Active Medications Acetaminophen (Tylenol) 650 mg PO Q4H PRN PRN Reason: Fever >101 Albumin Human (Alburx 25% (Albumin)) 25 gm IV EDIE PRN PRN Reason: Hypotension Amlodipine Besylate (Amlodipine) 10 mg PO QDAY [facility] Last Admin: 09/18/19 09:09 Dose: 10 mg Documented by: Aspirin (Baby Aspirin) 81 mg PO QDAY [facility] Last Admin: 09/18/19 09:08 Dose: 81 mg Documented by: Carvedilol (Coreg) 25 mg PO BID [facility] Last Admin: 09/18/19 09:08 Dose: 25 mg Documented by: Epoetin Leandro (Procrit) 10,000 unit SUB-Q EDIE [facility] Folic Acid (Folvite) 1 mg PO QDAY [facility] Last Admin: 09/18/19 09:07 Dose: 1 mg Documented by: Hydralazine HCl (Apresoline) 10 mg IV Q4HR PRN PRN Reason: Hypertension Hydralazine HCl (Apresoline) 50 mg PO Q8H [facility] Last Admin: 09/18/19 09:08 Dose: 50 mg Documented by: Sodium Chloride (Nacl 0.9%) 100 mls @ 999 mls/hr IV EDIE PRN PRN Reason: Hypotension Isosorbide Dinitrate (Isordil Titradose) 10 mg PO BID [facility] Levetiracetam (Keppra) 750 mg PO BID [facility] Last Admin: 09/18/19 09:07 Dose: 750 mg Documented by: Ondansetron HCl (Zofran) 4 mg IV Q8H PRN PRN Reason: Nausea And Vomiting Thiamine HCl (Vitamin B-1) 100 mg PO QDAY [facility] Last Admin: 09/18/19 09:08 Dose: 100 mg Documented by: Exam - Constitutional Vitals: Temp Pulse Resp BP Pulse Ox 98.3 F 73 20 161/95 96 09/18/19 06:13 09/18/19 09:09 09/18/19 06:13 09/18/19 09:09 09/18/19 06:13 Results - Labs CBC & Chem 7: 09/17/19 18:32 09/18/19 04:18 Labs: Abnormal lab results 09/17/19 09/17/19 09/18/19 Range/Units 18:32 18:32 04:18 WBC 4.4 L (4.5-11.0) K/mm3 RBC 2.45 L (3.65-5.03) M/mm3 Hgb 8.3 L (11.8-15.2) gm/dl Hct 25.1 L (35.5-45.6) % MCV 102 H (84-94) fl MCH 34 H (28-32) pg RDW 15.9 H (13.2-15.2) % [place] % (Auto) 10.9 H (0.0-7.3) % Sodium 148 H (137-145) mmol/L Chloride 108.7 H 113.2 H (98-107) mmol/L BUN 49 H 51 H (9-20) mg/dL Creatinine 5.4 H 5.3 H (0.8-1.5) mg/dL Glucose 104 H (75-100) mg/dL Calcium 8.3 L (8.4-10.2) mg/dL ALT 6 L (7-56) units/L Albumin 3.4 L (3.9-5) g/dL
[2019-09-18] MEDS ORDERED: ALTEPLASE 2 MG INJ ONE (14:12)
[2019-09-18 15:15] LABS: Hepatitis B Surface Antigen Non-Reactive (Negative); Hepatitis C Virus Antibody Non-Reactive (NonReactive)
[2019-09-19] MEDS: ISOSORBIDE DINITRATE 10 MG TAB PO SCH (09:38)
[2019-09-19 09:39] VITALS: BP 113/64
[2019-09-19] MEDS: hydrALAZINE 25 MG TAB PO SCH (09:39)
[2019-09-19] MEDS: FOLIC ACID 1 MG TAB PO SCH (09:40)
[2019-09-19] MEDS: carvediloL 25 MG TAB PO SCH (09:40)
[2019-09-19] MEDS: amLODIPine 10 MG TAB PO SCH (09:40)
[2019-09-19] MEDS: levETIRAcetam 500 MG TAB PO SCH (09:41)
[2019-09-19] MEDS: THIAMINE 100 MG TAB PO SCH (09:41)
[2019-09-19] MEDS: ASPIRIN 81 MG TAB CHEW PO SCH (09:42)
--- NOTE | 2019-09-19 10:08 | Progress Note ---
Assessment and Plan ESRD on HD Malfunctioning dialysis access Hypertension Metabolic Acidosis Prescription Non-compliance Plan: - vasc to assess Right IJ Perm catheter, placement by Dr Murphy on 08/27/19 - On Epogen 10,000 units Sq TIW dialysis once access in place or functional. could of been handled as outpatient - Renally dose medications - Strict I&O monitoring - Obtain daily weights - Continue to monitor - can dc home after dialysis Subjective Date of service: 09/19/19 Principal diagnosis: Malfunction right IJ permacath, ESRD on HD Interval history: resting in bed today Objective - Exam Narrative Exam: - General Limitations: No Limitations General appearance: alert, in no apparent distress - Head Head exam: Present: atraumatic, normocephalic - Eye Eye exam: Present: normal appearance - ENT ENT exam: Present: mucous membranes moist - Neck Neck exam: Present: normal inspection - Respiratory Respiratory exam: Present: normal lung sounds bilaterally. Absent: respiratory distress, wheezes, rales, rhonchi - Cardiovascular Cardiovascular Exam: Present: regular rate, normal rhythm. Absent: systolic murmur, diastolic murmur, rubs, gallop - GI/Abdominal GI/Abdominal exam: Present: soft, normal bowel sounds. Absent: distended, tenderness, guarding - Rectal Rectal exam: Present: deferred - Extremities Exam Extremities exam: Present: normal inspection - Back Exam Back exam: Present: normal inspection - Neurological Exam Neurological exam: Present: alert, oriented X3 - Psychiatric Psychiatric exam: Present: normal affect, normal mood - Skin Skin exam: Present: warm, dry, intact, normal color. Absent: rash - Vital Signs Vital signs: Vital Signs - 12hr 09/18/19 09/18/19 09/18/19 22:25 22:27 22:34 Temperature 99.0 F Pulse Rate 75 75 101 H Respiratory 16 Rate Blood Pressure 133/67 133/67 140/92 O2 Sat by Pulse 99 Oximetry 09/18/19 09/19/19 09/19/19 23:01 05:29 09:38 Temperature 98.2 F 97.9 F Pulse Rate 75 68 71 Respiratory 18 18 Rate Blood Pressure 127/72 129/81 113/64 O2 Sat by Pulse 96 96 Oximetry 09/19/19 09/19/19 09:39 09:40 Temperature Pulse Rate 71 71 Respiratory Rate Blood Pressure 113/64 113/64 O2 Sat by Pulse Oximetry - Lab 09/17/19 18:32 09/18/19 04:18 Most recent lab results Calcium 8.4 mg/dL (8.4-10.2) 09/18/19 04:18 Medications & Allergies - Medications Allergies/Adverse Reactions: Allergies No Known Allergies Allergy (Verified 04/09/19 13:12) Home Medications: Home Medications Medication Instructions Recorded Confirmed Last Taken Type Aspirin [Aspirin BABY CHEW TAB] 81 mg PO QDAY #30 tab.chew 09/01/19 09/17/19 Unknown Rx Epoetin Leandro 10,000 Unit [Procrit] 10,000 unit SUB-Q EDIE vial 09/01/19 09/17/19 Unknown Rx Folic Acid [Folvite] 1 mg PO QDAY #30 tablet 09/01/19 09/17/19 Unknown Rx Furosemide [Lasix TAB] 40 mg PO QDAY tablet 09/01/19 09/17/19 Unknown Rx Isosorbide Dinitrate [Isordil 10 mg PO BID #30 tablet 09/01/19 09/17/19 Unknown Rx Titradose] NIFEdipine XL [Procardia Xl] 60 mg PO QDAY #30 tablet 09/01/19 09/17/19 Unknown Rx Pravastatin Sodium [Pravastatin] 20 mg PO QHS #60 tablet 09/01/19 09/17/19 Unknown Rx Pravastatin [Pravachol] 20 mg PO QHS #30 tablet 09/01/19 09/17/19 Unknown Rx Thiamine [Vitamin B-1] 100 mg PO QDAY #30 tablet 09/01/19 09/17/19 Unknown Rx amLODIPine 10 mg PO QDAY #30 tablet 09/01/19 09/17/19 Unknown Rx carvediloL [Coreg] 25 mg PO BID #60 tablet 09/01/19 09/17/19 Unknown Rx hydrALAZINE [Apresoline TAB] 50 mg PO Q8H #90 tablet 09/01/19 09/17/19 Unknown Rx levETIRAcetam [Keppra TAB] 750 mg PO BID #60 tablet 09/01/19 09/17/19 Unknown Rx Active Medications: Generic Name Dose Route Start Last Admin Trade Name Freq PRN Reason Stop Dose Admin Acetaminophen 650 mg 09/17/19 21:53 Tylenol PO Q4H PRN Fever >101 Albumin Human 25 gm 09/18/19 10:28 Alburx 25% (Albumin) IV EDIE PRN Hypotension Amlodipine Besylate 10 mg 09/18/19 10:00 09/19/19 09:40 Amlodipine PO 10 mg QDAY [facility] Administration Aspirin 81 mg 09/18/19 10:00 09/19/19 09:42 Baby Aspirin PO 81 mg QDAY WILL Administration Carvedilol 25 mg 09/18/19 10:00 09/19/19 09:40 Coreg PO 25 mg BID [facility] Administration Epoetin Leandro 10,000 unit 09/18/19 07:00 09/18/19 20:28 Procrit SUB-Q 10,000 unit EDIE [facility] Administration Folic Acid 1 mg 09/18/19 10:00 09/19/19 09:40 Folvite PO 1 mg QDAY [facility] Administration Hydralazine HCl 10 mg 09/18/19 06:46 Apresoline IV Q4HR PRN Hypertension Hydralazine HCl 50 mg 09/18/19 07:00 09/19/19 09:39 Apresoline PO Not Given Q8H [facility] Sodium Chloride 100 mls @ 999 mls/hr 09/18/19 10:28 Nacl 0.9% IV EDIE PRN Hypotension Isosorbide Dinitrate 10 mg 09/18/19 10:00 09/19/19 09:38 Isordil Titradose PO Not Given BID [facility] Levetiracetam 750 mg 09/18/19 10:00 09/19/19 09:41 Keppra PO 750 mg BID [facility] Administration Ondansetron HCl 4 mg 09/17/19 21:55 Zofran IV Q8H PRN Nausea And Vomiting Thiamine HCl 100 mg 09/18/19 10:00 09/19/19 09:41 Vitamin B-1 PO 100 mg QDAY [facility] Administration
--- NOTE | 2019-09-19 10:13 | Discharge Summary ---
Providers - Providers Date of Admission: 09/17/19 20:59 Date of discharge: 09/19/19 Attending physician: ADY WILSON 09/17/19 20:56 Consult to Physician [CONS] Routine Comment: Consulting Provider: ROSETTE EDEN Physician Instructions: Reason For Exam: hd access 09/17/19 21:14 Consult to Physician [CONS] Routine Comment: Consulting Provider: YOSELIN REZA Physician Instructions: Reason For Exam: esrd Primary care physician: CAMPAIGN ASSISTANT Hospitalization Reason for admission: ESRD on HD, clogged Vas-Cath Condition: Critical Pertinent studies: None Procedures: None Hospital course: 58-year-old mellitus emergency room with complaints of a all functioning dialysis catheter. Patient states she has a right chest permacath. Patient states on Friday his permanent Stopped working and called. Patient was advised to come to the hospital on Friday but never did. Patient has not had dialysis since Friday. Patient was able to get a partial dialysis done the day that his shunt started malfunction. Patient denies pain. Patient denies chest pain. Patient denies physical complaints. Patient I fever and chills. Patient denies headache. Patient has dialysis on Friday, Friday, Friday. Vascular surgical consult was obtained. TPA to Vas-Cath was recommended. Patient right IJ was declotted. Had hemodialysis yesterday. Therefore been discharged today to follow up with tanning consultant and to continue with hemodialysis on outpatient basis. Discussed with patient tanning consultant,Dr Reza, agree the patient copuld be Discharged today and to have his hemodialysis outpatient basis. He had communicated this information to the patient was stressed nondistended. The primary care physician in 3-5 days Disposition: DC-01 TO HOME OR SELFCARE Time spent for discharge: 35 minutes - Discharge Diagnoses (1) Dialysis AV fistula malfunction Status: Acute Qualifiers: Encounter type: initial encounter Qualified Code(s): T82.590A - Other mechanical complication of surgically created arteriovenous fistula, initial encounter (2) ESRD (end stage renal disease) Status: Acute (3) Missed dialysis Status: Acute (4) Acidosis, metabolic Status: Acute Core Measure Documentation - Palliative Care Palliative Care/ Comfort Measures: Not Applicable - Core Measures Any of the following diagnoses?: none Exam - Physical Exam Narrative exam: Constitutional: Well-nourished well-developed. In no distress. Has a right IJ permacath Head: Normocephalic atraumatic Eyes: Pupils are equal round and reactive to light Nose: No enlarged turbinates, no septal deviation. Mouth: Moist mucous membranes. Neck: Supple no thyromegaly. No bruit. No JVD Heart: Regular rate and rhythm, S1-S2 normal. No rubs murmurs or gallop Lungs: Clear to auscultation bilaterally. no rales or rhonchi Abdomen: Soft, nontender. Bowel sound are present. Extremities: No edema, no cyanosis, no clubbing. Neuro: Alert oriented Oriented x3. No focal sensory or motor deficit. Skin: No rashes or hyperpigmented spots Musculoskeletal system: No joint pain or swelling Hematological: No petechia or subcutanous hemorrhages. Immunological: No multiple septic spots on the skin Lymphatic: No generalized lymphadenopathy Psychiatry: Euthymic. Calm. - Constitutional Vitals: Temp Pulse Resp BP Pulse Ox 97.9 F 71 18 113/64 96 09/19/19 05:29 09/19/19 09:40 09/19/19 05:29 09/19/19 09:40 09/19/19 05:29 Plan Weight Bearing Status: Weight Bear as Tolerated Diet: renal Follow up with: YOSELIN REZA MD [Staff Physician] - 3 Days PRIMARY CAREMD [Primary Care Provider] - 09/22/19 Prescriptions: amLODIPine 10 mg PO QDAY #30 tablet Aspirin [Aspirin BABY CHEW TAB] 81 mg PO QDAY #30 tab.chew carvediloL [Coreg] 25 mg PO BID #60 tablet Folic Acid [Folvite] 1 mg PO QDAY #30 tablet Isosorbide Dinitrate [Isordil Titradose] 10 mg PO BID #30 tablet levETIRAcetam [Keppra TAB] 750 mg PO BID #60 tablet Pravastatin [Pravachol] 20 mg PO QHS #30 tablet NIFEdipine XL [Procardia Xl] 60 mg PO QDAY #30 tablet Thiamine [Vitamin B-1] 100 mg PO QDAY #30 tablet
== END 2019-09-19 12:10 | disposition home or self-care (01) | DRG 314 ==
LOC: ED 13:46 → 3A 20:59
PROVIDERS: ADMIT Internal Medicine; ATTEND Family Medicine
PROC: 5A1D70Z Performance of Urinary Filtration, Intermittent, Less than 6 Hours Per Day (ICD-10-PCS; principal; 2019-09-18)
DX: T82.590A Other mechanical complication of surgically created arteriovenous fistula, initial encounter (principal); N18.6 End stage renal disease; E87.2 Acidosis; I13.2 Hypertensive heart and chronic kidney disease with heart failure and with stage 5 chronic kidney disease, or end stage renal disease; I50.9 Heart failure, unspecified; M19.90 Unspecified osteoarthritis, unspecified site; J44.9 Chronic obstructive pulmonary disease, unspecified; F17.200 Nicotine dependence, unspecified, uncomplicated; D63.1 Anemia in chronic kidney disease; Y83.2 Surgical operation with anastomosis, bypass or graft as the cause of abnormal reaction of the patient, or of later complication, without mention of misadventure at the time of the procedure; Y92.89 Other specified places as the place of occurrence of the external cause; Z79.82 Long term (current) use of aspirin; Z99.2 Dependence on renal dialysis; Z91.14 Patient's other noncompliance with medication regimen; Z79.899 Other long term (current) drug therapy
CPT/HCPCS: 36415; 80048; 80053; 80074; 85025; 85610; 85730; 87116; G0378; J0360; J0885; J2997

== ENCOUNTER 2019-11-06 23:17 | Emergency (ER) | payer OTHER ==
--- NOTE | 2019-11-07 00:15 | Emergency Department Report ---
Chief Complaint: Abdominal Pain Stated Complaint: STOMACH/TUAN LEG PAIN - HPI History of Present Illness: 59 y/o M p/w a cc of n/v abd cramping and bilat knee pain. Pt states he was just d/c several hours ago after having his vas cath declogged. Pt was last dialzyed YD. Pt eating Honey Bun in triage. Pt states he felt near syncopal with blurred vision and then developed bilat knee pain with weight bearing - Exam Vital Signs: Vital Signs 11/06/19 23:22 Temperature 97.0 F L Pulse Rate 56 L Respiratory 18 Rate Blood Pressure 148/87 O2 Sat by Pulse 99 Oximetry MSE screening note: Focused history and physical exam performed. Due to findings the following was ordered: cbc, cmp, magnesium, zofran ED Disposition for MSE Condition: Stable
[2019-11-07] MEDS: ONDANSETRON 4 MG ODT TAB PO ONE ×2 (00:16→02:29)
[2019-11-07 00:57] LABS: Basophils # (Auto) 0.1 K/mm3 (0.0-0.1); Basophils % (Auto) 0.8 % (0.0-1.8); Eosinophils % (Auto) 0.2 % (0.0-4.3); Hematocrit 33.1 % (35.5-45.6); Hemoglobin 11.2 gm/dl (11.8-15.2); Lymphocytes # (Auto) 1.1 K/mm3 (1.2-5.4); Lymphocytes % (Auto) 12.7 % (13.4-35.0); Mean Corpuscular HGB Conc 34 % (32-34); Mean Corpuscular Volume 98 fl (84-94); Monocytes # (Auto) 0.4 K/mm3 (0.0-0.8); Monocytes % (Auto) 5.2 % (0.0-7.3); Platelet Count 379 K/mm3 (140-440); Red Blood Count 3.36 M/mm3 (3.65-5.03); Red Cell Distribution Width 14.7 % (13.2-15.2)
[2019-11-07 01:20] LABS: Albumin 4.4 g/dL (3.9-5); Calcium 9.7 mg/dL (8.4-10.2)
[2019-11-07] MEDS ORDERED: FAMOTIDINE 20 MG/2 ML INJ IV ONE (01:54)
[2019-11-07] MEDS ORDERED: SODIUM CHLORIDE 0.9% 1000 ML 1,000 ML IV ONE (01:54)
[2019-11-07] MEDS ORDERED: METOCLOPRAMIDE 10 MG/2 ML INJ IV ONE (01:54)
[2019-11-07] MEDS ORDERED: SODIUM CHLORIDE 0.9% 500 ML 500 ML IV ONE (01:58)
--- NOTE | 2019-11-07 01:58 | Emergency Department Report ---
ED N/V/D HPI - General Chief complaint: Abdominal Pain Stated complaint: STOMACH/TUAN LEG PAIN Time Seen by Provider: 11/07/19 01:48 Source: patient, police Mode of arrival: Ambulatory Limitations: No Limitations - History of Present Illness Initial comments: Patient is a 59-year-old male with past medical history of end- stage renal disease who is currently on dialysis Friday who is presenting with 2 days of nausea vomiting. Patient states vomiting started after dialysis yesterday. He's been able to keep anything down. Patient is discharged also yesterday after having his Vas-Cath declogged. Patient states he has intermittent crampy diffuse abdominal pain and then will vomit. He tried to eat pizza, soup, water and unsuccessful keep anything down. He denies fever chills or diarrhea. Patient states he has some mild dizziness when standing today. MD complaint: nausea, vomiting - Related Data Previous Rx's Medication Instructions Recorded Last Taken Type Epoetin Leandro 10,000 Unit [Procrit] 10,000 unit SUB-Q EDIE vial 09/01/19 Unknown Rx Furosemide [Lasix TAB] 40 mg PO QDAY tablet 09/01/19 Unknown Rx carvediloL [Coreg] 25 mg PO BID #60 tablet 09/01/19 Unknown Rx Aspirin [Aspirin BABY CHEW TAB] 81 mg PO QDAY #30 tab.chew 09/19/19 Unknown Rx Epoetin Leandro 10,000 Unit [Procrit] 10,000 unit SUB-Q EDIE vial 09/19/19 Unknown Rx Folic Acid [Folvite] 1 mg PO QDAY #30 tablet 09/19/19 Unknown Rx Isosorbide Dinitrate [Isordil 10 mg PO BID #30 tablet 09/19/19 Unknown Rx Titradose] NIFEdipine XL [Procardia Xl] 60 mg PO QDAY #30 tablet 09/19/19 Unknown Rx Pravastatin [Pravachol] 20 mg PO QHS #30 tablet 09/19/19 Unknown Rx Thiamine [Vitamin B-1] 100 mg PO QDAY #30 tablet 09/19/19 Unknown Rx amLODIPine 10 mg PO QDAY #30 tablet 09/19/19 Unknown Rx carvediloL [Coreg] 25 mg PO BID #60 tablet 09/19/19 Unknown Rx levETIRAcetam [Keppra TAB] 750 mg PO BID #60 tablet 09/19/19 Unknown Rx Amoxicillin/Potassium Clav 1 each PO BID #14 tablet 11/04/19 Unknown Rx [Augmentin 875-125 Tablet] Famotidine [Pepcid] 40 mg PO QHS #10 tablet 11/07/19 Unknown Rx Ondansetron [Zofran Odt] 4 mg PO Q8HR #10 tab.rapdis 11/07/19 Unknown Rx Allergies Allergy/AdvReac Type Severity Reaction Status Date / Time No Known Allergies Allergy Verified 04/09/19 13:12 ED Review of Systems ROS: Stated complaint: STOMACH/TUAN LEG PAIN Other details as noted in HPI Comment: All other systems reviewed and negative ED Past Medical Hx - Past Medical History Previous Medical History?: Yes Hx Hypertension: Yes Hx Heart Attack/AMI: No Hx Congestive Heart Failure: No Hx Diabetes: No Hx Deep Vein Thrombosis: No Hx GERD: No Hx Liver Disease: No Hx Renal Disease: Yes (On Dialysis) Hx Sickle Cell Disease: No Hx Arthritis: Yes (knees) Hx Seizures: No Hx Asthma: No Hx COPD: Yes Hx Tuberculosis: No Hx Dementia: No Hx HIV: No - Surgical History Past Surgical History?: Yes Hx Coronary Stent: No Hx Pacemaker: No Hx Internal Defibrillator: No Additional Surgical History: rt chest permacath - Social History Smoking Status: Current Every Day Smoker Substance Use Type: None - Medications Home Medications: Home Medications Medication Instructions Recorded Confirmed Last Taken Type Epoetin Leandro 10,000 Unit [Procrit] 10,000 unit SUB-Q EDIE vial 09/01/19 11/05/19 Unknown Rx Furosemide [Lasix TAB] 40 mg PO QDAY tablet 09/01/19 11/05/19 Unknown Rx carvediloL [Coreg] 25 mg PO BID #60 tablet 09/01/19 11/05/19 Unknown Rx Aspirin [Aspirin BABY CHEW TAB] 81 mg PO QDAY #30 tab.chew 09/19/19 11/05/19 Unknown Rx Epoetin Leandro 10,000 Unit [Procrit] 10,000 unit SUB-Q EDIE vial 09/19/19 11/05/19 Unknown Rx Folic Acid [Folvite] 1 mg PO QDAY #30 tablet 09/19/19 11/05/19 Unknown Rx Isosorbide Dinitrate [Isordil 10 mg PO BID #30 tablet 09/19/19 11/05/19 Unknown Rx Titradose] NIFEdipine XL [Procardia Xl] 60 mg PO QDAY #30 tablet 09/19/19 11/05/19 Unknown Rx Pravastatin [Pravachol] 20 mg PO QHS #30 tablet 09/19/19 11/05/19 Unknown Rx Thiamine [Vitamin B-1] 100 mg PO QDAY #30 tablet 09/19/19 11/05/19 Unknown Rx amLODIPine 10 mg PO QDAY #30 tablet 09/19/19 11/05/19 Unknown Rx carvediloL [Coreg] 25 mg PO BID #60 tablet 09/19/19 11/05/19 Unknown Rx levETIRAcetam [Keppra TAB] 750 mg PO BID #60 tablet 09/19/19 11/05/19 Unknown Rx Amoxicillin/Potassium Clav 1 each PO BID #14 tablet 11/04/19 Unknown Rx [Augmentin 875-125 Tablet] Famotidine [Pepcid] 40 mg PO QHS #10 tablet 11/07/19 Unknown Rx Ondansetron [Zofran Odt] 4 mg PO Q8HR #10 tab.rapdis 11/07/19 Unknown Rx ED Physical Exam - General Limitations: No Limitations General appearance: alert, in no apparent distress - Head Head exam: Present: atraumatic, normocephalic - Eye Eye exam: Present: normal appearance, PERRL, EOMI - ENT ENT exam: Present: mucous membranes moist - Neck Neck exam: Present: normal inspection - Respiratory Respiratory exam: Present: normal lung sounds bilaterally. Absent: respiratory distress, wheezes, rales, rhonchi - Cardiovascular Cardiovascular Exam: Present: regular rate, normal rhythm, normal heart sounds. Absent: systolic murmur, diastolic murmur, rubs, gallop - GI/Abdominal GI/Abdominal exam: Present: soft, normal bowel sounds, hyperactive bowel sounds. Absent: distended, tenderness, guarding, rebound - Rectal Rectal exam: Present: deferred - Extremities Exam Extremities exam: Present: normal inspection - Back Exam Back exam: Present: normal inspection - Neurological Exam Neurological exam: Present: alert, oriented X3 - Psychiatric Psychiatric exam: Present: normal affect, normal mood - Skin Skin exam: Present: warm, dry, intact, normal color. Absent: rash ED Course Vital Signs 11/06/19 11/07/19 11/07/19 23:22 02:36 04:36 Temperature 97.0 F L 97.9 F 98.1 F Pulse Rate 56 L 72 86 Respiratory 18 20 16 Rate Blood Pressure 148/87 Blood Pressure 132/83 131/72 [Right] O2 Sat by Pulse 99 98 98 Oximetry - Reevaluation(s) Reevaluation #1: 11/07/19 01:57 Atrophy of the patient's laboratory studies his creatinine has increased over the last several days. Patient likely with some mild dehydration because of his nausea vomiting. Patient states he does make urine and IV will be established and start with 500 mL of normal saline. Reevaluation #2: 11/07/19 04:41 Patient was given some antiemetics and was able to tolerate by mouth. Patient discharged home with prescription for Zofran to follow up with GI. ED Medical Decision Making - Lab Data Result diagrams: 11/07/19 00:23 11/07/19 00:23 Lab Results 11/07/19 11/07/19 Range/Units 00:23 00:23 WBC 8.3 (4.5-11.0) K/mm3 RBC 3.36 L (3.65-5.03) M/mm3 Hgb 11.2 L (11.8-15.2) gm/dl Hct 33.1 L (35.5-45.6) % MCV 98 H (84-94) fl MCH 33 H (28-32) pg MCHC 34 (32-34) % RDW 14.7 (13.2-15.2) % Plt Count 379 (140-440) K/mm3 Lymph % (Auto) 12.7 L (13.4-35.0) % [place] % (Auto) 5.2 (0.0-7.3) % Eos % (Auto) 0.2 (0.0-4.3) % Baso % (Auto) 0.8 (0.0-1.8) % Lymph # 1.1 L (1.2-5.4) K/mm3 [place] # 0.4 (0.0-0.8) K/mm3 Eos # 0.0 (0.0-0.4) K/mm3 Baso # 0.1 (0.0-0.1) K/mm3 Seg Neutrophils % 81.1 H (40.0-70.0) % Seg Neutrophils # 6.7 (1.8-7.7) K/mm3 Sodium 139 (137-145) mmol/L Potassium 4.9 (3.6-5.0) mmol/L Chloride 90.6 L (98-107) mmol/L Carbon Dioxide 26 (22-30) mmol/L Anion Gap 27 mmol/L BUN 48 H (9-20) mg/dL Creatinine 6.3 H D (0.8-1.5) mg/dL Estimated GFR 11 ml/min BUN/Creatinine Ratio 8 % Glucose 150 H (75-100) mg/dL Calcium 9.7 (8.4-10.2) mg/dL Magnesium 2.10 (1.7-2.3) mg/dL Total Bilirubin 0.20 (0.1-1.2) mg/dL AST 14 (5-40) units/L ALT 7 (7-56) units/L Alkaline Phosphatase 136 H (35-129) units/L Total Protein 7.6 (6.3-8.2) g/dL Albumin 4.4 (3.9-5) g/dL Albumin/Globulin Ratio 1.4 % Critical care attestation.: If time is entered above; I have spent that time in minutes in the direct care of this critically ill patient, excluding procedure time. ED Disposition Clinical Impression: Mild dehydration Acute gastritis Qualifiers: Gastritis type: unspecified gastritis Gastritis bleeding: without bleeding Qualified Code(s): K29.00 - Acute gastritis without bleeding Disposition: DC- TO HOME OR SELFCARE Is pt being admited?: No Does the pt Need Aspirin: No Condition: Stable Instructions: Acute Nausea and Vomiting (ED), Gastritis (ED) Referrals: [facility] [Provider Group] - 3-5 Days Time of Disposition: 04:43
--- NOTE | 2019-11-07 02:29 | XRay Report ---
ABDOMEN 3 VIEW(S) INDICATION: Nausea with vomiting. COMPARISON: KUB from 11/05/2019. FINDINGS: Bowel gas pattern: No significant abnormality. Free air: None seen. Stones: None seen. Chest: No acute findings. The aorta is ectatic. A right internal jugular vein PermCath terminates ove r the right atrium. Additional Findings: No additional significant findings. IMPRESSION: No acute abnormality of the abdomen. Signer Name: Clyde Florentino MD Signed: 11/07/2019 2:24 AM Workstation Name: [id number]
[2019-11-07 04:36] VITALS: BP 131/72
== END 2019-11-07 05:42 | disposition home or self-care (01) ==
LOC: ED 23:17
DX: E86.0 Dehydration (principal); K29.00 Acute gastritis without bleeding; I10 Essential (primary) hypertension; M19.90 Unspecified osteoarthritis, unspecified site; J44.9 Chronic obstructive pulmonary disease, unspecified; F17.200 Nicotine dependence, unspecified, uncomplicated; Z79.899 Other long term (current) drug therapy
CPT/HCPCS: 36415; 74022; 80053; 83735; 85025; 93005; 93010; 96374; 96375; 99284; J2765; J7040; Q0162

== ENCOUNTER 2019-12-03 09:30 | Inpatient (IN) | payer OTHER ==
[2019-12-03] MEDS ORDERED: levETIRAcetam 1000 MG/NS 0.75% 1,000 MG/100 ML BAG IV ONE (10:19)
[2019-12-03 10:49] LABS: Basophils % (Auto) 1.1 % (0.0-1.8); Eosinophils # (Auto) 0.1 K/mm3 (0.0-0.4); Eosinophils % (Auto) 2.8 % (0.0-4.3); Hematocrit 32.4 % (35.5-45.6); Hemoglobin 10.6 gm/dl (11.8-15.2); Lymphocytes # (Auto) 0.5 K/mm3 (1.2-5.4); Lymphocytes % (Auto) 12.9 % (13.4-35.0); Mean Corpuscular HGB Conc 33 % (32-34); Mean Corpuscular Volume 100 fl (84-94); Monocytes # (Auto) 0.2 K/mm3 (0.0-0.8); Monocytes % (Auto) 4.7 % (0.0-7.3); Platelet Count 253 K/mm3 (140-440); Red Blood Count 3.23 M/mm3 (3.65-5.03); Red Cell Distribution Width 15.7 % (13.2-15.2)
[2019-12-03 11:03] LABS: Alanine Aminotransferase 6 units/L (7-56); Albumin 3.5 g/dL (3.9-5); BUN/Creatinine Ratio 8; Blood Urea Nitrogen 63 mg/dL (9-20); Calcium 8.1 mg/dL (8.4-10.2); Hemolysis Index 5
[2019-12-03 11:12] LABS: Bilirubin,Direct < 0.2 mg/dL (0-0.2)
--- NOTE | 2019-12-03 11:20 | Cat Scan Report ---
CT head/brain wo con INDICATION / CLINICAL INFORMATION: 59 years Male; MAIN: HTN SZ SEIZURE THIS AM. TECHNIQUE: Routine CT head without contrast. All CT scans at this location are performed using CT dos e reduction for ALARA by means of automated exposure control. 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 These findings are not significantly changed from prior. Otherwise, no acute hemorrhage, mass effect, midline shift, hydrocephalus, or acute, large territori al infarct. Minimal cerebral atrophy. There are moderate areas of decreased attenuation in the white matter of the cerebral hemispheres, as well as the gangliocapsular regions. These are nonspecific findings and may be related to microangio angela (hypertension, diabetes, atherosclerosis), given the patient's age. It might be difficult to ev aluate for small areas of ischemia without diffusion imaging by MRI. CRANIOCERVICAL JUNCTION: No significant abnormality. ORBITS: No significant abnormality of visualized orbits. SINUSES / MASTOIDS: Mild to moderate mucosal thickening seen in the left maxillary antrum, as well as the ethmoids. ADDITIONAL FINDINGS: Atherosclerotic disease is seen in the anterior and posterior circulation. IMPRESSION: 1. No focal mass, hemorrhage, hydrocephalus, or acute, large territorial infarct. Diffusion imaging b y MRI may be helpful for further evaluation, if clinically warranted. Signer Name: Koko Deal MD, III Signed: 12/03/2019 11:15 AM Workstation Name: [id number]
[2019-12-03 11:28] LABS: Bilirubin,Urine NEG (Negative); Blood,Urine SM (Negative); Color,Urine Straw (Yellow); Urobilinogen,Urine < 2.0 mg/dL (<2.0)
[2019-12-03 11:33] LABS: INR 1.01 (0.87-1.13)
[2019-12-03 11:34] LABS: Partial Thromboplastin Time 28.1 Sec. (24.2-36.6)
--- NOTE | 2019-12-03 12:42 | XRay Report ---
CHEST 1 VIEW INDICATION / CLINICAL INFORMATION: Trauma. Seizure COMPARISON: 11/07/2019 FINDINGS: SUPPORT DEVICES: Permacath appears unchanged HEART / MEDIASTINUM: There is prominence the cardiac silhouette. LUNGS / PLEURA: No significant pulmonary or pleural abnormality.. No pneumothorax. ADDITIONAL FINDINGS: No significant additional findings. IMPRESSION: 1. No acute findings. Signer Name: Eduardo Villalpando MD Signed: 12/03/2019 12:38 PM Workstation Name: [id number]
--- NOTE | 2019-12-03 12:45 | XRay Report ---
RIGHT KNEE 2 VIEWS INDICATION / CLINICAL INFORMATION: trauma COMPARISON: 09/29/2019 FINDINGS: BONES / JOINT(S): No acute fracture or subluxation. There is advanced degenerative change in the knee there is some erosion cortical irregularity predominantly along the medial tibial plateau. This appe ars unchanged from the prior exam. Anchors are noted in the lateral tibia. There is an effusion in th e suprapatella bursa which is increased from the prior study. There are possible loose bodies in the joint. SOFT TISSUES: There is soft tissue swelling ADDITIONAL FINDINGS: None. LEFT KNEE 2 VIEWS INDICATION / CLINICAL INFORMATION: trauma COMPARISON: 09/29/2019 FINDINGS: BONES / JOINT(S): No acute fracture or subluxation. There is degenerative change most severe in the m edial compartment. There is a joint effusion in the suprapatella bursa which appears similar to the p rior study. SOFT TISSUES: There is soft tissue swelling ADDITIONAL FINDINGS: None. Signer Name: Eduardo Villalpando MD Signed: 12/03/2019 12:41 PM Workstation Name: [id number]
--- NOTE | 2019-12-03 12:47 | XRay Report ---
LUMBAR SPINE 3 VIEWS INDICATION: trauma COMPARISON: None. FINDINGS: There is no fracture, subluxation, or other acute radiographic abnormality of the lumbar spine. There is mild discogenic degenerative change in the mid lumbar spine. Pedicles appear intact. Signer Name: Eduardo Villalpando MD Signed: 12/03/2019 12:43 PM Workstation Name: [id number]
--- NOTE | 2019-12-03 12:57 | Emergency Department Report ---
ED General Adult HPI - General Chief complaint: Seizure Stated complaint: POSS SEIZURE Time Seen by Provider: 12/03/19 10:14 Source: patient, EMS Mode of arrival: Stretcher Limitations: No Limitations - History of Present Illness Initial comments: This is a 59-year-old male who admits to the abuse of crack cocaine. He states that he has had seizures before but is not currently on medication. He states that "I was told I had a seizure". He complains of pain in his lower back and both his knees. He states he has a history of arthritis but does not admit prior knee problems. Apparently as per the radiologist he has had large knee effusions in the past. He presents with bilateral knee and lower back pain. He did not bite his tongue. He is back to his neurological baseline. Is not complaining of headache or any focal neurological change. Patient admits to noncompliance with his dialysis yesterday. -: Sudden Location: back, lower extremity Severity scale (0 -10): 6 Quality: aching Consistency: intermittent Improves with: none Worsens with: none Associated Symptoms: denies other symptoms - Related Data Previous Rx's Medication Instructions Recorded Last Taken Type Epoetin Leandro 10,000 Unit [Procrit] 10,000 unit SUB-Q EDIE vial 09/01/19 Unknown Rx Furosemide [Lasix TAB] 40 mg PO QDAY tablet 09/01/19 Unknown Rx carvediloL [Coreg] 25 mg PO BID #60 tablet 09/01/19 Unknown Rx Aspirin [Aspirin BABY CHEW TAB] 81 mg PO QDAY #30 tab.chew 09/19/19 Unknown Rx Epoetin Leandro 10,000 Unit [Procrit] 10,000 unit SUB-Q EDIE vial 09/19/19 Unknown Rx Folic Acid [Folvite] 1 mg PO QDAY #30 tablet 09/19/19 Unknown Rx Isosorbide Dinitrate [Isordil 10 mg PO BID #30 tablet 09/19/19 Unknown Rx Titradose] NIFEdipine XL [Procardia Xl] 60 mg PO QDAY #30 tablet 09/19/19 Unknown Rx Pravastatin [Pravachol] 20 mg PO QHS #30 tablet 09/19/19 Unknown Rx Thiamine [Vitamin B-1] 100 mg PO QDAY #30 tablet 09/19/19 Unknown Rx amLODIPine 10 mg PO QDAY #30 tablet 09/19/19 Unknown Rx carvediloL [Coreg] 25 mg PO BID #60 tablet 09/19/19 Unknown Rx levETIRAcetam [Keppra TAB] 750 mg PO BID #60 tablet 09/19/19 Unknown Rx Amoxicillin/Potassium Clav 1 each PO BID #14 tablet 11/04/19 Unknown Rx [Augmentin 875-125 Tablet] Famotidine [Pepcid] 40 mg PO QHS #10 tablet 11/07/19 Unknown Rx Ondansetron [Zofran Odt] 4 mg PO Q8HR #10 tab.rapdis 11/07/19 Unknown Rx Allergies Allergy/AdvReac Type Severity Reaction Status Date / Time No Known Allergies Allergy Verified 04/09/19 13:12 ED Review of Systems ROS: Stated complaint: POSS SEIZURE Other details as noted in HPI Constitutional: denies: chills, fever Eyes: denies: eye pain, eye discharge, vision change ENT: denies: ear pain, throat pain Respiratory: denies: cough, shortness of breath, wheezing Cardiovascular: denies: chest pain, palpitations Endocrine: no symptoms reported Gastrointestinal: denies: abdominal pain, nausea, diarrhea Genitourinary: denies: urgency, dysuria Musculoskeletal: back pain, arthralgia Skin: denies: rash, lesions Neurological: denies: headache, weakness, paresthesias Psychiatric: denies: anxiety, depression Hematological/Lymphatic: denies: easy bleeding, easy bruising ED Past Medical Hx - Past Medical History Previous Medical History?: Yes Hx Hypertension: Yes Hx Heart Attack/AMI: No Hx Congestive Heart Failure: No Hx Diabetes: No Hx Deep Vein Thrombosis: No Hx GERD: No Hx Liver Disease: No Hx Renal Disease: Yes (On Dialysis) Hx Sickle Cell Disease: No Hx Arthritis: Yes (knees) Hx Seizures: No Hx Asthma: No Hx COPD: Yes Hx Tuberculosis: No Hx Dementia: No Hx HIV: No - Surgical History Past Surgical History?: Yes Hx Coronary Stent: No Hx Pacemaker: No Hx Internal Defibrillator: No Additional Surgical History: rt chest permacath - Social History Smoking Status: Current Every Day Smoker Substance Use Type: Alcohol, Cocaine, Marijuana - Medications Home Medications: Home Medications Medication Instructions Recorded Confirmed Last Taken Type Epoetin Leandro 10,000 Unit [Procrit] 10,000 unit SUB-Q EDIE vial 09/01/19 11/05/19 Unknown Rx Furosemide [Lasix TAB] 40 mg PO QDAY tablet 09/01/19 11/05/19 Unknown Rx carvediloL [Coreg] 25 mg PO BID #60 tablet 09/01/19 11/05/19 Unknown Rx Aspirin [Aspirin BABY CHEW TAB] 81 mg PO QDAY #30 tab.chew 09/19/19 11/05/19 Unknown Rx Epoetin Leandro 10,000 Unit [Procrit] 10,000 unit SUB-Q EDIE vial 09/19/19 11/05/19 Unknown Rx Folic Acid [Folvite] 1 mg PO QDAY #30 tablet 09/19/19 11/05/19 Unknown Rx Isosorbide Dinitrate [Isordil 10 mg PO BID #30 tablet 09/19/19 11/05/19 Unknown Rx Titradose] NIFEdipine XL [Procardia Xl] 60 mg PO QDAY #30 tablet 09/19/19 11/05/19 Unknown Rx Pravastatin [Pravachol] 20 mg PO QHS #30 tablet 09/19/19 11/05/19 Unknown Rx Thiamine [Vitamin B-1] 100 mg PO QDAY #30 tablet 09/19/19 11/05/19 Unknown Rx amLODIPine 10 mg PO QDAY #30 tablet 09/19/19 11/05/19 Unknown Rx carvediloL [Coreg] 25 mg PO BID #60 tablet 09/19/19 11/05/19 Unknown Rx levETIRAcetam [Keppra TAB] 750 mg PO BID #60 tablet 09/19/19 11/05/19 Unknown Rx Amoxicillin/Potassium Clav 1 each PO BID #14 tablet 11/04/19 Unknown Rx [Augmentin 875-125 Tablet] Famotidine [Pepcid] 40 mg PO QHS #10 tablet 11/07/19 Unknown Rx Ondansetron [Zofran Odt] 4 mg PO Q8HR #10 tab.rapdis 11/07/19 Unknown Rx ED Physical Exam - General Limitations: No Limitations General appearance: alert, in no apparent distress - Head Head exam: Present: atraumatic, normocephalic - Eye Eye exam: Present: normal appearance. Absent: scleral icterus - ENT ENT exam: Present: mucous membranes moist - Neck Neck exam: Present: normal inspection. Absent: tenderness, meningismus - Respiratory Respiratory exam: Present: normal lung sounds bilaterally. Absent: respiratory distress - Cardiovascular Cardiovascular Exam: Present: regular rate, normal rhythm. Absent: systolic murmur, diastolic murmur, rubs, gallop - GI/Abdominal GI/Abdominal exam: Present: soft, normal bowel sounds. Absent: distended, tenderness, guarding, rebound - Rectal Rectal exam: Present: deferred - Extremities Exam Extremities exam: Present: other (Bilateral knee effusions. Does not appear to be any acute deformity.) - Back Exam Back exam: Present: normal inspection, paraspinal tenderness (Diffuse lower lumbar no thoracic tenderness) - Neurological Exam Neurological exam: Present: alert, oriented X3, CN II-XII intact. Absent: motor sensory deficit - Psychiatric Psychiatric exam: Present: normal affect, normal mood - Skin Skin exam: Present: warm, dry, intact, normal color. Absent: rash ED Course Vital Signs 12/03/19 12/03/19 12/03/19 09:54 10:00 10:14 Temperature 98.7 F Pulse Rate 67 68 67 Respiratory 16 18 16 Rate Blood Pressure 197/116 197/116 Blood Pressure 197/116 [Left] O2 Sat by Pulse 100 98 100 Oximetry 12/03/19 12/03/19 12/03/19 10:16 10:30 11:16 Temperature Pulse Rate 74 65 59 L Respiratory 26 H 20 11 L Rate Blood Pressure 213/120 198/125 211/121 Blood Pressure [Left] O2 Sat by Pulse 99 99 98 Oximetry 12/03/19 12/03/19 12/03/19 11:30 11:46 12:12 Temperature Pulse Rate 64 59 L 78 Respiratory 20 17 13 Rate Blood Pressure 206/128 213/120 191/104 Blood Pressure [Left] O2 Sat by Pulse 100 98 Oximetry 12/03/19 12/03/19 12/03/19 12:16 12:30 12:46 Temperature Pulse Rate 74 74 77 Respiratory 11 L 21 18 Rate Blood Pressure 191/104 191/104 179/87 Blood Pressure [Left] O2 Sat by Pulse 100 100 100 Oximetry 12/03/19 12/03/19 12/03/19 13:00 13:16 13:31 Temperature Pulse Rate 76 71 68 Respiratory 17 16 11 L Rate Blood Pressure 166/86 168/79 173/94 Blood Pressure [Left] O2 Sat by Pulse 100 100 98 Oximetry 12/03/19 13:45 Temperature Pulse Rate 70 Respiratory 15 Rate Blood Pressure 179/87 Blood Pressure [Left] O2 Sat by Pulse 99 Oximetry - Reevaluation(s) Reevaluation #1: Patient was given labetalol, and Keppra. He was admitted to the hospital service for further care and evaluation. 12/03/19 14:58 Reevaluation #2: Spoke with urology. Patient admitted to the hospital service in stable condition. 12/03/19 15:01 ED Medical Decision Making - Lab Data Result diagrams: 12/03/19 10:27 12/03/19 10:27 Laboratory Results - last 24 hr 12/03/19 12/03/19 12/03/19 10:27 10:27 10:27 WBC 3.6 L RBC 3.23 L Hgb 10.6 L Hct 32.4 L MCV 100 H MCH 33 H MCHC 33 RDW 15.7 H Plt Count 253 Lymph % (Auto) 12.9 L Castro % (Auto) 4.7 Eos % (Auto) 2.8 Baso % (Auto) 1.1 Lymph # 0.5 L Castro # 0.2 Eos # 0.1 Baso # 0.0 Seg Neutrophils % 78.5 H Seg Neutrophils # 2.9 PT INR APTT Sodium 141 Potassium 4.8 Chloride 105.3 Carbon Dioxide 19 L Anion Gap 22 BUN 63 H Creatinine 8.2 H Estimated GFR 8 BUN/Creatinine Ratio 8 Glucose 84 Calcium 8.1 L Phosphorus 7.50 H Magnesium 2.20 Total Bilirubin 0.20 Direct Bilirubin < 0.2 Indirect Bilirubin 0.0 AST 15 ALT 6 L Alkaline Phosphatase 116 Total Creatine Kinase CK-MB (CK-2) CK-MB (CK-2) Rel Index NT-Pro-B Natriuret Pep Total Protein 7.0 Albumin 3.5 L Albumin/Globulin Ratio 1.0 Urine Color Urine Turbidity Urine pH Ur Specific Rachel Urine Protein Urine Glucose (UA) Urine Ketones Urine Blood Urine Nitrite Urine Bilirubin Urine Urobilinogen Ur Leukocyte Esterase Urine WBC (Auto) Urine RBC (Auto) U Epithel Cells (Auto) 12/03/19 12/03/19 12/03/19 11:00 11:00 11:00 WBC RBC Hgb Hct MCV MCH MCHC RDW Plt Count Lymph % (Auto) Castro % (Auto) Eos % (Auto) Baso % (Auto) Lymph # Castro # Eos # Baso # Seg Neutrophils % Seg Neutrophils # PT 13.4 INR 1.01 APTT 28.1 Sodium Potassium Chloride Carbon Dioxide Anion Gap BUN Creatinine Estimated GFR BUN/Creatinine Ratio Glucose Calcium Phosphorus Magnesium Total Bilirubin Direct Bilirubin Indirect Bilirubin AST ALT Alkaline Phosphatase Total Creatine Kinase 130 CK-MB (CK-2) 4.0 CK-MB (CK-2) Rel Index 3.0 NT-Pro-B Natriuret Pep 64272 H Total Protein Albumin Albumin/Globulin Ratio Urine Color Urine Turbidity Urine pH Ur Specific Rachel Urine Protein Urine Glucose (UA) Urine Ketones Urine Blood Urine Nitrite Urine Bilirubin Urine Urobilinogen Ur Leukocyte Esterase Urine WBC (Auto) Urine RBC (Auto) U Epithel Cells (Auto) 12/03/19 Unknown WBC RBC Hgb Hct MCV MCH MCHC RDW Plt Count Lymph % (Auto) Castro % (Auto) Eos % (Auto) Baso % (Auto) Lymph # Castro # Eos # Baso # Seg Neutrophils % Seg Neutrophils # PT INR APTT Sodium Potassium Chloride Carbon Dioxide Anion Gap BUN Creatinine Estimated GFR BUN/Creatinine Ratio Glucose Calcium Phosphorus Magnesium Total Bilirubin Direct Bilirubin Indirect Bilirubin AST ALT Alkaline Phosphatase Total Creatine Kinase CK-MB (CK-2) CK-MB (CK-2) Rel Index NT-Pro-B Natriuret Pep Total Protein Albumin Albumin/Globulin Ratio Urine Color Straw Urine Turbidity Clear Urine pH 8.0 H Ur Specific Rachel 1.010 Urine Protein 30 mg/dl Urine Glucose (UA) 50 Urine Ketones Neg Urine Blood Sm Urine Nitrite Neg Urine Bilirubin Neg Urine Urobilinogen < 2.0 Ur Leukocyte Esterase Neg Urine WBC (Auto) 1.0 Urine RBC (Auto) 6.0 U Epithel Cells (Auto) < 1.0 - EKG Data -: EKG Interpreted by Me EKG shows normal: sinus rhythm, axis, intervals, QRS complexes, ST-T waves Rate: normal - EKG Data Interpretation: nonspecific ST-T wave amparo, LVH (Associated repolarization abnormality) - Radiology Data Radiology results: report reviewed (CT of the head showed no acute process) Plain films of the knees and back showed no acute osseous abnormality. Critical care attestation.: If time is entered above; I have spent that time in minutes in the direct care o f this critically ill patient, excluding procedure time. ED Disposition Clinical Impression: Uncontrolled hypertension, Generalized seizure, End-stage renal disease needing dialysis Disposition: - OP ADMIT IP TO THIS HOSP Is pt being admited?: Yes Does the pt Need Aspirin: Yes Condition: Stable Time of Disposition: 15:01
--- NOTE | 2019-12-03 13:10 | History and Physical Report ---
History of Present Illness Chief complaint: I missed dialysis History of present illness: 59 YO Male with HTN, HLD, Seizure Disorder, Medication Noncompliance, OA , Nicotine Dependence, Cocaine Dependence, Systolic CHF(EF 25%) presents to ED for evaluation. Patient states that shortly after ingestion of cocaine this morning he experienced a sudden onset of seizure activity. Patient reports loss of consciousness and shortly after regaining consciousness he was told by bystanders that he had experienced a seizure. EMS was notified and upon arrival the patient was found to be in distress and subsequently transported to [facility] for further evaluation and care. Patient seen and evaluated in the emergency department. Lab and imaging studies reviewed. Patient acknowledges noncompliance with outpatient dialysis. Patient found to have blood pressure of 197/116 consistent with malignant hypertension, end-stage renal disease in need of dialysis, metabolic acidosis, as well as chronic congestive heart failure. P atient placed in observation status and admitted to medical floor for further care and medical observation. Nephrology team consulted in ED for urgent dialysis. Pt denies fever, chills, CP, Palpitations, NVD, Trauma, BRBPR, Productive cough, skin rash, prolonged travel/immobility, unilateral leg sw elling, calf pain, individual/family history of DVT/PE/Bleeding, Blood Clotting Disorders, or known ill contacts. Prior admission on 11/02/2019 reviewed. All listed medication reconciled at time of admission. Past History Past Medical History: ESRD, hypertension, hyperlipidemia, seizures, other (See HPI) Past Surgical History: Other (Dialysis access) Social history: , smoking, other (Cocaine dependence) Family history: hypertension Medications and Allergies Allergies Allergy/AdvReac Type Severity Reaction Status Date / Time No Known Allergies Allergy Verified 04/09/19 13:12 Home Medications Medication Instructions Recorded Confirmed Last Taken Type Epoetin Leandro 10,000 Unit [Procrit] 10,000 unit SUB-Q EDIE vial 09/01/19 11/05/19 Unknown Rx Furosemide [Lasix TAB] 40 mg PO QDAY tablet 09/01/19 11/05/19 Unknown Rx carvediloL [Coreg] 25 mg PO BID #60 tablet 09/01/19 11/05/19 Unknown Rx Aspirin [Aspirin BABY CHEW TAB] 81 mg PO QDAY #30 tab.chew 09/19/19 11/05/19 Unknown Rx Epoetin Leandro 10,000 Unit [Procrit] 10,000 unit SUB-Q EDIE vial 09/19/19 11/05/19 Unknown Rx Folic Acid [Folvite] 1 mg PO QDAY #30 tablet 09/19/19 11/05/19 Unknown Rx Isosorbide Dinitrate [Isordil 10 mg PO BID #30 tablet 09/19/19 11/05/19 Unknown Rx Titradose] NIFEdipine XL [Procardia Xl] 60 mg PO QDAY #30 tablet 09/19/19 11/05/19 Unknown Rx Pravastatin [Pravachol] 20 mg PO QHS #30 tablet 09/19/19 11/05/19 Unknown Rx Thiamine [Vitamin B-1] 100 mg PO QDAY #30 tablet 09/19/19 11/05/19 Unknown Rx amLODIPine 10 mg PO QDAY #30 tablet 09/19/19 11/05/19 Unknown Rx carvediloL [Coreg] 25 mg PO BID #60 tablet 09/19/19 11/05/19 Unknown Rx levETIRAcetam [Keppra TAB] 750 mg PO BID #60 tablet 09/19/19 11/05/19 Unknown Rx Amoxicillin/Potassium Clav 1 each PO BID #14 tablet 11/04/19 Unknown Rx [Augmentin 875-125 Tablet] Famotidine [Pepcid] 40 mg PO QHS #10 tablet 11/07/19 Unknown Rx Ondansetron [Zofran Odt] 4 mg PO Q8HR #10 tab.rapdis 11/07/19 Unknown Rx Review of Systems Constitutional: no weight loss, no weight gain, no fever, no chills Ears, nose, mouth and throat: no ear pain, no ear discharge, no tinnitis, no decreased hearing, no nose pain, no nasal congestion Cardiovascular: no chest pain, no orthopnea, no palpitations Respiratory: no cough, no cough with sputum, no excessive sputum, no hemoptysis, no shortness of breath Gastrointestinal: no abdominal pain, no vomiting, no diarrhea, no constipation, no hematemesis Genitourinary Male: no dysuria, no hematuria, no flank pain, no discharge, no urinary hesitancy Rectal: no pain, no incontinence, no bleeding Musculoskeletal: no neck stiffness, no shooting arm pain, no arm numbnes s/tingling, no low back pain Integumentary: no rash, no pruritis, no redness, no sores, no wounds, no jaundice Neurological: seizures, no paralysis, no weakness, no parathesias, no numbness, no syncope Psychiatric: no anxiety, no memory loss, no change in sleep habits, no sleep disturbances, no insomnia, no hypersomnia, no suicidal ideation, no disorientation Endocrine: no cold intolerance, no heat intolerance, no excessive thirst, no polydipsia Hematologic/Lymphatic: no easy bruising, no easy bleeding, no lymphadenopathy, no lymphedema Allergic/Immunologic: no urticaria, no allergic rhinitis, no wheezing, no persistent infections Exam - Constitutional Vitals: Temp Pulse Resp BP Pulse Ox 98.7 F 67 16 197/116 100 12/03/19 09:54 12/03/19 10:14 12/03/19 10:14 12/03/19 10:14 12/03/19 10:14 General appearance: Present: mild distress - EENT Eyes: Present: PERRL ENT: hearing intact, clear oral mucosa - Neck Neck: Present: supple, normal ROM - Respiratory Respiratory effort: normal Respiratory: bilateral: CTA - Cardiovascular Heart Sounds: Present: S1 & S2. Absent: rub, click - Extremities Extremities: pulses symmetrical, No edema Peripheral Pulses: within normal limits - Abdominal General gastrointestinal: Present: soft, non-tender, non-distended, normal bowel sounds Male genitourinary: Present: normal - Integumentary Integumentary: Present: clear, warm, dry - Musculoskeletal Musculoskeletal: gait normal, strength equal bilaterally - Psychiatric Psychiatric: appropriate mood/affect, intact judgment & insight - Neurologic Neurologic: CNII-XII intact, moves all extremities Results - Labs CBC & Chem 7: 12/03/19 10:27 12/03/19 10:27 Labs: Abnormal lab results 12/03/19 12/03/19 12/03/19 Range/Units 10:27 10:27 10:27 WBC 3.6 L (4.5-11.0) K/mm3 RBC 3.23 L (3.65-5.03) M/mm3 Hgb 10.6 L (11.8-15.2) gm/dl Hct 32.4 L (35.5-45.6) % MCV 100 H (84-94) fl MCH 33 H (28-32) pg RDW 15.7 H (13.2-15.2) % Lymph % (Auto) 12.9 L (13.4-35.0) % Lymph # 0.5 L (1.2-5.4) K/mm3 Seg Neutrophils % 78.5 H (40.0-70.0) % Carbon Dioxide 19 L (22-30) mmol/L BUN 63 H (9-20) mg/dL Creatinine 8.2 H (0.8-1.5) mg/dL Calcium 8.1 L (8.4-10.2) mg/dL Phosphorus 7.50 H (2.5-4.5) mg/dL ALT 6 L (7-56) units/L NT-Pro-B Natriuret Pep (0-900) pg/mL Albumin 3.5 L (3.9-5) g/dL Urine pH (5.0-7.0) 12/03/19 12/03/19 Range/Units 11:00 Unknown WBC (4.5-11.0) K/mm3 RBC (3.65-5.03) M/mm3 Hgb (11.8-15.2) gm/dl Hct (35.5-45.6) % MCV (84-94) fl MCH (28-32) pg RDW (13.2-15.2) % Lymph % (Auto) (13.4-35.0) % Lymph # (1.2-5.4) K/mm3 Seg Neutrophils % (40.0-70.0) % Carbon Dioxide (22-30) mmol/L BUN (9-20) mg/dL Creatinine (0.8-1.5) mg/dL Calcium (8.4-10.2) mg/dL Phosphorus (2.5-4.5) mg/dL ALT (7-56) units/L NT-Pro-B Natriuret Pep 60561 H (0-900) pg/mL Albumin (3.9-5) g/dL Urine pH 8.0 H (5.0-7.0) Assessment and Plan - Patient Problems (1) End stage renal disease Current Visit: Yes Status: Acute Plan to address problem: Nephrology consult placed in ED, strict I's/O, daily weight, monitor urine output every shift, monitor fluid balance, avoid nephrotoxic agents. Dialysis as per renal team. (2) Cocaine dependence Current Visit: Yes Status: Acute Qualifiers: Substance use status: uncomplicated Qualified Code(s): F14.20 - Cocaine d ependence, uncomplicated Plan to address problem: Supportive care, behavior change counseling, patient counseled regarding the risk of cocaine use patient acknowledges understanding risk of worsening symptoms, worsening renal function, worsening heart disease, and . (3) Malignant hypertension Current Visit: Yes Status: Acute Plan to address problem: Monitor blood pressure every shift, continue prehospital antihypertensive therapy, IV hydralazine for systolic blood pressure greater than 155 (4) Noncompliance with medication regimen Current Visit: Yes Status: Acute Plan to address problem: Patient patient counseled regarding medication noncompliance. Patient counseled regarding risk of worsening symptoms, increased morbidity and mortality,. Patient knowledges understanding and states that he will be more compliant in the future. (5) Noncompliance with renal dialysis Current Visit: Yes Status: Acute (6) Systolic CHF Current Visit: Yes Status: Acute Qualifiers: Heart failure chronicity: acute on chronic Qualified Code(s): I50.23 - Acute on chronic systolic (congestive) heart failure Plan to address problem: Strict I's/O, daily weight, monitor urine output every shift, BNP, chest x-ray, supplemental oxygen, pulse oximetry, diuresis, afterload reduction, dialysis as per renal team. (7) Seizure disorder Current Visit: No Status: Chronic Plan to address problem: Keppra therapy, continue prehospital antiepileptic therapy, outpatient neurology follow-up. (8) DVT prophylaxis Current Visit: Yes Status: Acute Plan to address problem: SCD to bilateral lower extremities while in bed, patient is ambulatory.
[2019-12-03] MEDS ORDERED: ONDANSETRON 4 MG/2 ML INJ IV PRN (13:12)
[2019-12-03] MEDS ORDERED: ALBUTEROL 2.5 MG/3 ML NEBU IH PRN (13:12)
[2019-12-03] MEDS ORDERED: EPOETIN ALFA 10,000 UNIT/1 ML INJ SUB-Q SCH (14:00)
[2019-12-03] MEDS: ACETAMINOPHEN 325 MG TAB PO PRN ×2 (16:18→23:46)
[2019-12-03] MEDS: ONDANSETRON 4 MG ODT TAB PO SCH ×2 (16:19→22:19)
[2019-12-03 18:15] LABS: Hepatitis B Surface Antigen Non-Reactive (Negative); Hepatitis C Virus Antibody Non-Reactive (NonReactive)
[2019-12-03] MEDS ORDERED: SODIUM CHLORIDE 0.9% 100 ML IV PRN (19:12)
[2019-12-03] MEDS ORDERED: NON-FORMULARY EACH (Levetiracetam [Keppra Tab] 750 MG) PO SCH (22:00)
[2019-12-03] MEDS ORDERED: NON-FORMULARY EACH (Famotidine [Pepcid] 40 MG) PO SCH (22:00)
[2019-12-03] MEDS: carvediloL 25 MG TAB PO SCH (22:15)
[2019-12-03] MEDS: ISOSORBIDE DINITRATE 10 MG TAB PO SCH (22:16)
[2019-12-03] MEDS: levETIRAcetam 500 MG TAB PO SCH (22:17)
[2019-12-03] MEDS: FAMOTIDINE 20 MG TAB PO SCH (22:18)
[2019-12-03] MEDS: PRAVASTATIN 20 MG TAB PO SCH (22:18)
[2019-12-04 05:05] LABS: Basophils # (Auto) 0.1 K/mm3 (0.0-0.1); Basophils % (Auto) 1.5 % (0.0-1.8); Eosinophils # (Auto) 0.2 K/mm3 (0.0-0.4); Eosinophils % (Auto) 4.2 % (0.0-4.3); Hematocrit 27.8 % (35.5-45.6); Hemoglobin 9.2 gm/dl (11.8-15.2); Lymphocytes # (Auto) 1.7 K/mm3 (1.2-5.4); Lymphocytes % (Auto) 40.7 % (13.4-35.0); Mean Corpuscular HGB Conc 33 % (32-34); Mean Corpuscular Volume 100 fl (84-94); Monocytes # (Auto) 0.3 K/mm3 (0.0-0.8); Monocytes % (Auto) 8.4 % (0.0-7.3); Platelet Count 227 K/mm3 (140-440); Red Blood Count 2.79 M/mm3 (3.65-5.03); Red Cell Distribution Width 15.3 % (13.2-15.2)
[2019-12-04 05:26] LABS: Alanine Aminotransferase 6 units/L (7-56); Albumin 3.1 g/dL (3.9-5); BUN/Creatinine Ratio 7; Blood Urea Nitrogen 65 mg/dL (9-20); Calcium 7.9 mg/dL (8.4-10.2); Hemolysis Index 6
[2019-12-04] MEDS ORDERED: hydrALAZINE 20 MG/1 ML INJ IV ONE (05:45)
[2019-12-04] MEDS: ONDANSETRON 4 MG ODT TAB PO SCH ×3 (06:10→21:56)
[2019-12-04 07:28] LABS: Amphetamine Screen,Urine PRESUMPTIVE NEGATIVE; Benzodiazepines Screen,Urine PRESUMPTIVE NEGATIVE; Cannabinoid Screen,Urine PRESUMPTIVE NEGATIVE; Methadone Screen,Urine PRESUMPTIVE NEGATIVE; Opiate Screen,Urine PRESUMPTIVE NEGATIVE
[2019-12-04 07:41] LABS: Cocaine Screen,Urine PRESUMPTIVE POSITIVE
--- NOTE | 2019-12-04 09:14 | Consultation ---
History of Present Illness - Reason for Consult Consult date: 12/04/19 end stage renal disease - History of Present Illness This is a 59 year-old man with ESRD who presents for seizure activity after cocaine use. Patient usually dialyzes MWF at [facility]. Last HD 11/29/19. Missed last HD due to rain. Denies any recent issues with HD, including dizziness, lightheadedness, cramping, chest pain on HD. Currently, patient denies any issues including dyspnea, edema, access issues, na usea, vomiting, headaches. Past History Past Medical History: ESRD, hypertension, hyperlipidemia, seizures, other (See HPI) Past Surgical History: Other (Dialysis access) Social history: , smoking, other (Cocaine dependence) Family history: hypertension Medications and Allergies Allergies Allergy/AdvReac Type Severity Reaction Status Date / Time No Known Allergies Allergy Verified 04/09/19 13:12 Home Medications Medication Instructions Recorded Confirmed Last Taken Type Epoetin Leandro 10,000 Unit [Procrit] 10,000 unit SUB-Q EDIE vial 09/01/19 11/05/19 Unknown Rx Furosemide [Lasix TAB] 40 mg PO QDAY tablet 09/01/19 11/05/19 Unknown Rx carvediloL [Coreg] 25 mg PO BID #60 tablet 09/01/19 11/05/19 Unknown Rx Aspirin [Aspirin BABY CHEW TAB] 81 mg PO QDAY #30 tab.chew 09/19/19 11/05/19 Unknown Rx Epoetin Leandro 10,000 Unit [Procrit] 10,000 unit SUB-Q EDIE vial 09/19/19 11/05/19 Unknown Rx Folic Acid [Folvite] 1 mg PO QDAY #30 tablet 09/19/19 11/05/19 Unknown Rx Isosorbide Dinitrate [Isordil 10 mg PO BID #30 tablet 09/19/19 11/05/19 Unknown Rx Titradose] NIFEdipine XL [Procardia Xl] 60 mg PO QDAY #30 tablet 09/19/19 11/05/19 Unknown Rx Pravastatin [Pravachol] 20 mg PO QHS #30 tablet 09/19/19 11/05/19 Unknown Rx Thiamine [Vitamin B-1] 100 mg PO QDAY #30 tablet 09/19/19 11/05/19 Unknown Rx amLODIPine 10 mg PO QDAY #30 tablet 09/19/19 11/05/19 Unknown Rx carvediloL [Coreg] 25 mg PO BID #60 tablet 09/19/19 11/05/19 Unknown Rx levETIRAcetam [Keppra TAB] 750 mg PO BID #60 tablet 09/19/19 11/05/19 Unknown Rx Amoxicillin/Potassium Clav 1 each PO BID #14 tablet 11/04/19 Unknown Rx [Augmentin 875-125 Tablet] Famotidine [Pepcid] 40 mg PO QHS #10 tablet 11/07/19 Unknown Rx Ondansetron [Zofran Odt] 4 mg PO Q8HR #10 tab.rapdis 11/07/19 Unknown Rx Active Meds: Active Medications Acetaminophen (Tylenol) 650 mg PO Q4H PRN PRN Reason: Pain MILD(1-3)/Fever >100.5/TORIBIO Last Admin: 12/03/19 23:46 Dose: 650 mg Documented by: Albuterol (Proventil) 2.5 mg IH Q4HRT PRN PRN Reason: Shortness Of Breath Amlodipine Besylate (Amlodipine) 10 mg PO QDAY [facility] Aspirin (Baby Aspirin) 81 mg PO QDAY [facility] Carvedilol (Coreg) 25 mg PO BID [facility] Last Admin: 12/03/19 22:15 Dose: 25 mg Documented by: Epoetin Leandro (Procrit) 10,000 unit SUB-Q EDIE [facility] Famotidine (Pepcid) 40 mg PO QHS [facility] Last Admin: 12/03/19 22:18 Dose: 40 mg Documented by: Folic Acid (Folvite) 1 mg PO QDAY [facility] Furosemide (Lasix) 40 mg PO QDAY [facility] Sodium Chloride (Nacl 0.9%) 100 mls @ 999 mls/hr IV EDIE PRN PRN Reason: Hypotension Isosorbide Dinitrate (Isordil Titradose) 10 mg PO BID [facility] Last Admin: 12/03/19 22:16 Dose: 10 mg Documented by: Levetiracetam (Keppra) 750 mg PO BID [facility] Last Admin: 12/03/19 22:17 Dose: 750 mg Documented by: Nifedipine (Procardia Xl) 60 mg PO QDAY [facility] Ondansetron HCl (Zofran) 4 mg IV Q8H PRN PRN Reason: Nausea And Vomiting Ondansetron HCl (Zofran Odt) 4 mg PO Q8HR [facility] Last Admin: 12/04/19 06:10 Dose: Not Given Documented by: Pravastatin Sodium (Pravachol) 20 mg PO QHS [facility] Last Admin: 12/03/19 22:18 Dose: 20 mg Documented by: Sodium Chloride (Sodium Chloride Flush Syringe 10 Ml) 10 ml IV BID [facility] Last Admin: 12/03/19 22:18 Dose: 10 ml Documented by: Sodium Chloride (Sodium Chloride Flush Syringe 10 Ml) 10 ml IV PRN PRN PRN Reason: LINE FLUSH Thiamine HCl (Vitamin B-1) 100 mg PO QDAY [facility] Review of Systems All systems: negative (as per HPI) Exam - Vital Signs Vital signs: Vital Signs Temp Pulse Resp BP Pulse Ox 98.7 F 67 16 197/116 100 12/03/19 09:54 12/03/19 09:54 12/03/19 09:54 12/03/19 09:54 12/03/19 09:54 - Physical Exam Narrative exam: Constitutional: no acute distress Head: NC/AT Neck: supple Lungs: clear to auscultation CV: RRR, no M/R/G Abdomen: soft, non-tender, bowel sounds present Back: nontender Extremities: no edema, pulses WNL Skin: intact Neuro: no focal deficits, alert and oriented x4 Access: CVC RIJ noted Results - Lab Results 12/04/19 04:06 12/04/19 04:06 Most recent lab results Calcium 7.9 mg/dL (8.4-10.2) L 12/04/19 04:06 Phosphorus 7.50 mg/dL (2.5-4.5) H 12/03/19 10:27 Magnesium 2.20 mg/dL (1.7-2.3) 12/03/19 10:27 Assessment and Plan This is a 59 year old man who presents with seizure activity # ESRD: will provide HD today for lyte and volume management. Plan to resume outpatient MWF thereafter - daily labs - renally dose meds - avoid nephrotoxins - renal diet # Anemia: last hemoglobin 9.2, ESAs with HD as indicated, but will hold for now given propensity for high BPs # HTN: UF as tolerated. BP high but improved from initial admission. Avoid cocaine use. # Secondary Hyperparathyroidism: continue home binders as needed
[2019-12-04] MEDS: levETIRAcetam 500 MG TAB PO SCH ×2 (10:12→21:53)
[2019-12-04] MEDS: NIFEdipine XL 60 MG TAB PO SCH (10:12)
[2019-12-04] MEDS: ISOSORBIDE DINITRATE 10 MG TAB PO SCH ×2 (10:12→21:51)
[2019-12-04] MEDS: FUROSEMIDE 40 MG TAB PO SCH (10:14)
[2019-12-04] MEDS: FOLIC ACID 1 MG TAB PO SCH (10:14)
[2019-12-04] MEDS: carvediloL 25 MG TAB PO SCH ×2 (10:14→21:55)
[2019-12-04] MEDS: amLODIPine 10 MG TAB PO SCH (10:14)
[2019-12-04] MEDS: THIAMINE 100 MG TAB PO SCH (10:14)
[2019-12-04] MEDS: ASPIRIN 81 MG TAB CHEW PO SCH (10:15)
--- NOTE | 2019-12-04 13:14 | Progress Note ---
Assessment and Plan (1) End stage renal disease Current Visit: Yes Status: Acute Plan to address problem: Nephrology consult placed in ED, strict I's/O, daily weight, monitor urine output every shift, monitor fluid balance, avoid nephrotoxic agents. Dialysis as per renal team. Getting dialysis today Patient does not want to go home because he is homeless Discussed with case management about arrangements with group home (2) Cocaine dependence Current Visit: Yes Status: Acute Qualifiers: Substance use status: uncomplicated Qualified Code(s): F14.20 - Cocaine dependence, uncomplicated Plan to address problem: Supportive care, behavior change counseling, patient counseled regarding the risk of cocaine use patient acknowledges understanding risk of worsening symptoms, worsening renal function, worsening heart disease, and . Counseled the patient (3) Malignant hypertension Current Visit: Yes Status: Acute Plan to address problem: Blood pressure better Medications adjusted (4) Noncompliance with medication regimen Current Visit: Yes Status: Acute Plan to address problem: Patient counseled about medication regimen (5) Noncompliance with renal dialysis Current Visit: Yes Status: Acute Patient counseled about compliance with hemodialysis (6) Systolic CHF Current Visit: Yes Status: Acute Qualifiers: Heart failure chronicity: acute on chronic Qualified Code(s): I50.23 - Acute on chronic systolic (congestive) heart failure Plan to address problem: Strict I's/O, daily weight, monitor urine output every shift, BNP, chest x-ray, supplemental oxygen, pulse oximetry, diuresis, afterload reduction, dialysis as per renal team. Continue hemodialysis regularly for ultrafiltration (7) Seizure disorder Current Visit: No Status: Chronic Plan to address problem: Keppra therapy, continue prehospital antiepileptic therapy, outpatient neurology follow-up. (8) DVT prophylaxis Current Visit: Yes Status: Acute Plan to address problem: SCD to bilateral lower extremities while in bed, patient is ambulatory. Subjective Date of service: 12/04/19 Principal diagnosis: Volume overload and end-stage renal disease Interval history: 59-year-old male with history of seizure disorder, hypertension, hyperlipidemia, medication noncompliance, nicotine dependence, cocaine dependence, systolic heart failure with ejection fraction of 25% comes in for sudden onset of seizure activity. Patient apparently consumed cocaine. Patient was given IV Keppra in the emergency room. Because of his noncompliance with outpatient dialysis and volume overload patient was admitted for emergent hemodialysis and seizure disorder management. Patient's blood pressure was very high 197/116 for which antihypertensives were started and IV hydralazine was started. Nephrology was consulted. Case management was consulted. i postdialysis patient feels better Wants to go to a group home. Objective - Constitutional Vitals: Vital Signs - 12hr 12/04/19 12/04/19 12/04/19 04:39 06:45 10:12 Temperature 98.2 F Pulse Rate 58 L 69 Respiratory 20 Rate Blood Pressure 179/104 172/109 Blood Pressure 170/94 [Left] O2 Sat by Pulse 97 Oximetry 12/04/19 12/04/19 10:14 10:48 Temperature Pulse Rate 69 Respiratory Rate Blood Pressure 172/109 Blood Pressure [Left] O2 Sat by Pulse 99 Oximetry General appearance: Present: no acute distress, well-nourished - EENT Eyes: PERRL, EOM intact ENT: hearing intact, clear oral mucosa Ears: bilateral: normal - Neck Neck: supple, normal ROM - Respiratory Respiratory effort: normal Respiratory: bilateral: CTA - Breasts Breasts: normal - Cardiovascular Heart rate: 78 Rhythm: regular Heart Sounds: Present: S1 & S2. Absent: gallop, rub Extremities: pulses intact, No edema, normal color, Full ROM - Gastrointestinal General gastrointestinal: Present: soft, non-tender, non-distended, normal bowel sounds - Genitourinary Male genitourinary: normal - Integumentary Integumentary: clear, warm, dry - Musculoskeletal Musculoskeletal: 1, strength equal bilaterally - Neurologic Neurologic: moves all extremities - Psychiatric Psychiatric: memory intact, appropriate mood/affect, intact judgment & insight - Labs CBC & Chem 7: 12/04/19 04:06 12/04/19 04:06 Labs: Abnormal lab results 12/04/19 12/04/19 Range/Units 04:06 04:06 WBC 4.1 L (4.5-11.0) K/mm3 RBC 2.79 L (3.65-5.03) M/mm3 Hgb 9.2 L (11.8-15.2) gm/dl Hct 27.8 L (35.5-45.6) % MCV 100 H (84-94) fl MCH 33 H (28-32) pg RDW 15.3 H (13.2-15.2) % Lymph % (Auto) 40.7 H (13.4-35.0) % Bonner % (Auto) 8.4 H (0.0-7.3) % Carbon Dioxide 19 L (22-30) mmol/L BUN 65 H (9-20) mg/dL Creatinine 9.0 H (0.8-1.5) mg/dL Glucose 102 H (75-100) mg/dL Calcium 7.9 L (8.4-10.2) mg/dL ALT 6 L (7-56) units/L Total Protein 5.7 L (6.3-8.2) g/dL Albumin 3.1 L (3.9-5) g/dL
[2019-12-04] MEDS: FAMOTIDINE 20 MG TAB PO SCH (21:51)
[2019-12-04] MEDS: PRAVASTATIN 20 MG TAB PO SCH (21:54)
[2019-12-04] MEDS ORDERED: SODIUM CHLORIDE*PRIMING MACHINE ONLY FOR DIALYSIS MC ONE (23:03)
[2019-12-05] MEDS: ONDANSETRON 4 MG ODT TAB PO SCH ×3 (06:43→22:04)
[2019-12-05] MEDS: THIAMINE 100 MG TAB PO SCH (09:03)
[2019-12-05] MEDS: levETIRAcetam 500 MG TAB PO SCH ×2 (09:03→22:04)
[2019-12-05] MEDS: ISOSORBIDE DINITRATE 10 MG TAB PO SCH ×2 (09:04→22:03)
[2019-12-05] MEDS: NIFEdipine XL 60 MG TAB PO SCH (09:04)
[2019-12-05] MEDS: carvediloL 25 MG TAB PO SCH ×2 (09:04→22:03)
[2019-12-05] MEDS: FOLIC ACID 1 MG TAB PO SCH (09:05)
[2019-12-05] MEDS: amLODIPine 10 MG TAB PO SCH (09:05)
[2019-12-05] MEDS: ASPIRIN 81 MG TAB CHEW PO SCH (09:05)
[2019-12-05] MEDS: FUROSEMIDE 40 MG TAB PO SCH (09:05)
[2019-12-05] MEDS ORDERED: SODIUM CHLORIDE 0.9% 100 ML IV PRN (10:26)
--- NOTE | 2019-12-05 10:26 | Progress Note ---
Assessment and Plan This is a 59 year old man who presents with seizure activity # ESRD: s/p HD yesterday for volume and electrolytes. Plan to resume outpatient MWF thereafter, due tomorrow - daily labs - renally dose meds - avoid nephrotoxins - renal diet # Anemia: last hemoglobin 9.2, ESAs with HD as indicated, but will hold for now given propensity for high BPs # HTN: UF as tolerated. BP high but improved from initial admission. Avoid cocaine use. # Secondary Hyperparathyroidism: continue home binders as needed Subjective Date of service: 12/05/19 Interval history: No acute events noted. Tolerated HD well. Sleeping and resting comfortably this AM Objective - Exam Narrative Exam: Constitutional: no acute distress Head: NC/AT Neck: supple Lungs: clear to auscultation CV: RRR, no M/R/G Abdomen: soft, non-tender, bowel sounds present Back: nontender Extremities: no edema, pulses WNL Skin: intact Neuro: no focal deficits, alert and oriented x4 Access: CVC RIJ noted - Vital Signs Vital signs: Vital Signs - 12hr 12/04/19 12/04/19 12/04/19 21:51 21:55 23:23 Temperature 98.7 F Pulse Rate 67 67 76 Respiratory 20 Rate Blood Pressure 154/82 154/82 135/60 O2 Sat by Pulse 95 Oximetry 12/05/19 12/05/19 12/05/19 05:44 09:04 09:05 Temperature 98.4 F Pulse Rate 64 61 61 Respiratory 20 Rate Blood Pressure 158/87 168/91 168/91 O2 Sat by Pulse 95 Oximetry - Lab 12/04/19 04:06 12/04/19 04:06 Most recent lab results Calcium 7.9 mg/dL (8.4-10.2) L 12/04/19 04:06 Phosphorus 7.50 mg/dL (2.5-4.5) H 12/03/19 10:27 Magnesium 2.20 mg/dL (1.7-2.3) 12/03/19 10:27 Medications & Allergies - Medications Allergies/Adverse Reactions: Allergies No Known Allergies Allergy (Verified 04/09/19 13:12) Home Medications: Home Medications Medication Instructions Recorded Confirmed Last Taken Type Epoetin Leandro 10,000 Unit [Procrit] 10,000 unit SUB-Q EDIE vial 09/01/19 11/05/19 Unknown Rx Furosemide [Lasix TAB] 40 mg PO QDAY tablet 09/01/19 11/05/19 Unknown Rx carvediloL [Coreg] 25 mg PO BID #60 tablet 09/01/19 11/05/19 Unknown Rx Aspirin [Aspirin BABY CHEW TAB] 81 mg PO QDAY #30 tab.chew 09/19/19 11/05/19 Unknown Rx Epoetin Leandro 10,000 Unit [Procrit] 10,000 unit SUB-Q EDIE vial 09/19/19 11/05/19 Unknown Rx Folic Acid [Folvite] 1 mg PO QDAY #30 tablet 09/19/19 11/05/19 Unknown Rx Isosorbide Dinitrate [Isordil 10 mg PO BID #30 tablet 09/19/19 11/05/19 Unknown Rx Titradose] NIFEdipine XL [Procardia Xl] 60 mg PO QDAY #30 tablet 09/19/19 11/05/19 Unknown Rx Pravastatin [Pravachol] 20 mg PO QHS #30 tablet 09/19/19 11/05/19 Unknown Rx Thiamine [Vitamin B-1] 100 mg PO QDAY #30 tablet 09/19/19 11/05/19 Unknown Rx amLODIPine 10 mg PO QDAY #30 tablet 09/19/19 11/05/19 Unknown Rx carvediloL [Coreg] 25 mg PO BID #60 tablet 09/19/19 11/05/19 Unknown Rx levETIRAcetam [Keppra TAB] 750 mg PO BID #60 tablet 09/19/19 11/05/19 Unknown Rx Amoxicillin/Potassium Clav 1 each PO BID #14 tablet 11/04/19 Unknown Rx [Augmentin 875-125 Tablet] Famotidine [Pepcid] 40 mg PO QHS #10 tablet 11/07/19 Unknown Rx Ondansetron [Zofran Odt] 4 mg PO Q8HR #10 tab.rapdis 11/07/19 Unknown Rx Active Medications: Generic Name Dose Route Start Last Admin Trade Name Freq PRN Reason Stop Dose Admin Acetaminophen 650 mg 12/03/19 13:12 12/03/19 23:46 Tylenol PO 650 mg Q4H PRN Administration Pain MILD(1-3)/Fever >100.5/TORIBIO Albuterol 2.5 mg 12/03/19 13:12 Proventil IH Q4HRT PRN Shortness Of Breath Amlodipine Besylate 10 mg 12/04/19 10:00 12/05/19 09:05 Amlodipine PO 10 mg QDAY WILL Administration Aspirin 81 mg 12/04/19 10:00 12/05/19 09:05 Baby Aspirin PO 81 mg QDAY WILL Administration Carvedilol 25 mg 12/03/19 22:00 12/05/19 09:04 Coreg PO 25 mg BID WILL Administration Epoetin Leandro 10,000 unit 12/03/19 14:00 Procrit SUB-Q EDIE WILL Famotidine 40 mg 12/03/19 22:00 12/04/19 21:51 Pepcid PO 40 mg QHS WILL Administration Folic Acid 1 mg 12/04/19 10:00 12/05/19 09:05 Folvite PO 1 mg QDAY WILL Administration Furosemide 40 mg 12/04/19 10:00 12/05/19 09:05 Lasix PO 40 mg QDAY WILL Administration Sodium Chloride 100 mls @ 999 mls/hr 12/03/19 19:12 Nacl 0.9% IV EDIE PRN Hypotension Isosorbide Dinitrate 10 mg 12/03/19 22:00 12/05/19 09:04 Isordil Titradose PO 10 mg BID WILL Administration Levetiracetam 750 mg 12/03/19 22:00 12/05/19 09:03 Keppra PO 750 mg BID WILL Administration Nifedipine 60 mg 12/04/19 10:00 12/05/19 09:04 Procardia Xl PO 60 mg QDAY WILL Administration Ondansetron HCl 4 mg 12/03/19 13:12 Zofran IV Q8H PRN Nausea And Vomiting Ondansetron HCl 4 mg 12/03/19 14:00 12/05/19 06:43 Zofran Odt PO Not Given Q8HR WILL Pravastatin Sodium 20 mg 12/03/19 22:00 12/04/19 21:54 Pravachol PO 20 mg QHS WILL Administration Sodium Chloride 10 ml 12/03/19 22:00 12/05/19 09:06 Sodium Chloride Flush Syringe 10 Ml IV Not Given BID WILL Sodium Chloride 10 ml 12/03/19 13:12 Sodium Chloride Flush Syringe 10 Ml IV PRN PRN LINE FLUSH Thiamine HCl 100 mg 12/04/19 10:00 12/05/19 09:03 Vitamin B-1 PO 100 mg QDAY WILL Administration
--- NOTE | 2019-12-05 11:40 | Discharge Summary ---
Providers - Providers Date of Admission: 12/03/19 13:12 Date of discharge: 12/05/19 Attending physician: TIMOTHY MCCARTNEY 12/03/19 13:07 Consult to Physician [CONS] Urgent Comment: Consulting Provider: CAITIE ENGLAND Physician Instructions: Reason For Exam: ESRD missed dialysis Primary care physician: [facility] Hospitalization Condition: Stable Hospital course: 59-year-old male with history of seizure disorder, hypertension, hyperlipidemia, medication noncompliance, nicotine dependence, cocaine dependence, systolic heart failure with ejection fraction of 25% comes in for sudden onset of seizure activity. Patient apparently consumed cocaine. Patient was given IV Keppra in the emergency room. Because of his noncompliance with outpatient dialysis and volume overload patient was admitted for emergent hemodialysis and seizure disorder management. Patient's blood pressure was very high 197/116 for which antihypertensives were started and IV hydralazine was started. Nephrology was consulted. Case management was consulted. i postdialysis patient feels better Wants to go to a snf. (1) End stage renal disease Current Visit: Yes Status: Acute Plan to address problem: Nephrology consult placed in ED, strict I's/O, daily weight, monitor urine output every shift, monitor fluid balance, avoid nephrotoxic agents. Dialysis as per renal team. Getting dialysis today Patient does not want to go home because he is homeless Discussed with case management about arrangements with snf (2) Cocaine dependence Current Visit: Yes Status: Acute Qualifiers: Substance use status: uncomplicated Qualified Code(s): F14.20 - Cocaine dependence, uncomplicated Plan to address problem: Supportive care, behavior change counseling, patient counseled regarding the risk of cocaine use patient acknowledges understanding risk of worsening symptoms, worsening renal function, worsening heart disease, and . Counseled the patient (3) Malignant hypertension Current Visit: Yes Status: Acute Plan to address problem: Blood pressure better Medications adjusted (4) Noncompliance with medication regimen Current Visit: Yes Status: Acute Plan to address problem: Patient counseled about medication regimen (5) Noncompliance with renal dialysis Current Visit: Yes Status: Acute Patient counseled about compliance with hemodialysis (6) Systolic CHF Current Visit: Yes Status: Acute Qualifiers: Heart failure chronicity: acute on chronic Qualified Code(s): I50.23 - Acute on chronic systolic (congestive) heart failure Plan to address problem: Strict I's/O, daily weight, monitor urine output every shift, BNP, chest x-ray, supplemental oxygen, pulse oximetry, diuresis, afterload reduction, dialysis as per renal team. Continue hemodialysis regularly for ultrafiltration (7) Seizure disorder Current Visit: No Status: Chronic Plan to address problem: Keppra therapy, continue prehospital antiepileptic therapy, outpatient neurology follow-up. Disposition: DC- TO HOME OR SELFCARE Core Measure Documentation - Palliative Care Palliative Care/ Comfort Measures: Not Applicable - Core Measures Any of the following diagnoses?: none Exam - Constitutional Vitals: Temp Pulse Resp BP Pulse Ox 98.4 F 61 20 168/91 95 12/05/19 05:44 12/05/19 09:05 12/05/19 05:44 12/05/19 09:05 12/05/19 05:44 General appearance: Present: no acute distress, well-nourished - EENT Eyes: Present: PERRL ENT: hearing intact, clear oral mucosa - Neck Neck: Present: supple, normal ROM - Respiratory Respiratory effort: normal Respiratory: bilateral: CTA - Cardiovascular Heart rate: 76 Rhythm: regular Heart Sounds: Present: S1 & S2. Absent: rub, click - Extremities Extremities: no ischemia, pulses intact, pulses symmetrical, No edema Peripheral Pulses: within normal limits - Abdominal General gastrointestinal: Present: soft, non-tender, non-distended, normal bowel sounds Male genitourinary: Present: normal - Rectal Rectal Exam: deferred - Integumentary Integumentary: Present: clear, warm, dry - Musculoskeletal Musculoskeletal: gait normal, strength equal bilaterally - Psychiatric Psychiatric: appropriate mood/affect, intact judgment & insight - Neurologic Neurologic: CNII-XII intact, moves all extremities - Allied Health Allied health notes reviewed: nursing, social work, case management Plan Activity: no restrictions Diet: renal Additional Instructions: Compliance with medications and hemodialysis Follow up with: PRIMARY MD MEG [Primary Care Provider] - 3-5 Days CAITIE ENGLAND MD [Staff Physician] - 7 Days
[2019-12-05] MEDS: PRAVASTATIN 20 MG TAB PO SCH (22:03)
[2019-12-05] MEDS: FAMOTIDINE 20 MG TAB PO SCH (22:04)
[2019-12-06] MEDS: ONDANSETRON 4 MG ODT TAB PO SCH ×2 (07:13→14:41)
--- NOTE | 2019-12-06 08:44 | Progress Note ---
Subjective Principal diagnosis: Volume overload and end-stage renal disease Interval history: Patient was seen today for follow-up of multiple renal related issues patient was also seen and supervised on hemodialysis which he seems to be tolerating well He is a very poor historian No complaints of any chest pain pressure or shortness of breath Interdisciplinary notes that also reviewed Events of 24 hours vitals labs intake output medications were reviewed Past medical history: Reviewed Family history: Reviewed Social history: Reviewed Allergies: Reviewed Physical examination: Vitals: Reviewed HEENT: No pallor or icterus oral mucosa moist Neck: Supple no JVD no thyromegaly Chest: Bilateral clear to auscultation anteriorly Heart: Regular rate and rhythm S1-S2 heard no S3-S4 Abdomen: Soft nontender no voluntary guarding rigidity rebound Extremity: Dry skin less than 1+ peripheral edema Psychiatric: No evidence of agitation and aggression noted Dermatology: No petechial rashes Labs and x-rays: Reviewed from today Assessment and plan End-stage renal disease currently on maintenance hemodialysis patient will continue with dialysis treatment 3 times per week, Friday and Friday [facility] Anemia in end-stage renal disease currently on erythropoietin 10,000 unit subcu continue to monitor hemoglobin and hematocrit level, Patient also does have evidence of leukopenia mild platelet count is normal Metabolic acidosis: Needs to start sodium bicarbonate at least 1 tablet twice a day Cardiomyopathy ejection fraction 25%, cocaine dependence, nicotine abuse, noncompliance Change Lasix to 80 mg daily to skip on dialysis days Central venous catheter: Working well for now Hypertension and volume needs ongoing monitoring and follow-up Nutrition: High-protein diet required due to dialysis status Mild bradycardia heart rate between 53 and 66 to monitor and follow Patient was adequately counseled and educated regarding all the renal related issues Laboratory studies, have been explained to the patient All questions were answered and simple Turkmen We'll continue to follow and make recommendation for renal standpoint Objective - Vital Signs Vital signs: Vital Signs - 12hr 12/05/19 12/05/19 12/05/19 21:00 22:03 22:35 Temperature 99.0 F Pulse Rate 66 70 Respiratory 18 20 Rate Blood Pressure 168/95 148/83 O2 Sat by Pulse 95 Oximetry 12/06/19 05:37 Temperature 97.9 F Pulse Rate 53 L Respiratory 20 Rate Blood Pressure 171/88 O2 Sat by Pulse 92 Oximetry - Lab 12/04/19 04:06 12/04/19 04:06 Most recent lab results Calcium 7.9 mg/dL (8.4-10.2) L 12/04/19 04:06 Phosphorus 7.50 mg/dL (2.5-4.5) H 12/03/19 10:27 Magnesium 2.20 mg/dL (1.7-2.3) 12/03/19 10:27 Medications & Allergies - Medications Allergies/Adverse Reactions: Allergies No Known Allergies Allergy (Verified 04/09/19 13:12) Home Medications: Home Medications Medication Instructions Recorded Confirmed Last Taken Type Epoetin Leandro 10,000 Unit [Procrit] 10,000 unit SUB-Q EDIE vial 09/01/19 11/05/19 Unknown Rx carvediloL [Coreg] 25 mg PO BID #60 tablet 09/01/19 11/05/19 Unknown Rx Epoetin Leandro 10,000 Unit [Procrit] 10,000 unit SUB-Q EDIE vial 09/19/19 11/05/19 Unknown Rx Amoxicillin/Potassium Clav 1 each PO BID #14 tablet 11/04/19 Unknown Rx [Augmentin 875-125 Tablet] Ondansetron [Zofran Odt] 4 mg PO Q8HR #10 tab.rapdis 11/07/19 Unknown Rx Aspirin [Aspirin BABY CHEW TAB] 81 mg PO QDAY #100 tab.chew 12/05/19 Unknown Rx Aspirin [Aspirin BABY CHEW TAB] 81 mg PO QDAY #30 tab.chew 12/05/19 Unknown Rx Famotidine [Pepcid] 40 mg PO QHS #30 tablet 12/05/19 Unknown Rx Folic Acid [Folvite] 1 mg PO QDAY #30 tablet 12/05/19 Unknown Rx Furosemide [Lasix TAB] 40 mg PO QDAY #30 tablet 12/05/19 Unknown Rx Isosorbide Dinitrate [Isordil 10 mg PO BID #60 tablet 12/05/19 Unknown Rx Titradose] NIFEdipine XL [Procardia Xl] 60 mg PO QDAY #30 tablet 12/05/19 Unknown Rx Pravastatin [Pravachol] 20 mg PO QHS #30 tablet 12/05/19 Unknown Rx Thiamine [Vitamin B-1] 100 mg PO QDAY #30 tablet 12/05/19 Unknown Rx amLODIPine 10 mg PO QDAY #30 tablet 12/05/19 Unknown Rx carvediloL [Coreg] 25 mg PO BID #60 tablet 12/05/19 Unknown Rx levETIRAcetam [Keppra TAB] 750 mg PO BID #60 tablet 12/05/19 Unknown Rx Active Medications: Generic Name Dose Route Start Last Admin Trade Name Freq PRN Reason Stop Dose Admin Acetaminophen 650 mg 12/03/19 13:12 12/03/19 23:46 Tylenol PO 650 mg Q4H PRN Administration Pain MILD(1-3)/Fever >100.5/TORIBIO Albuterol 2.5 mg 12/03/19 13:12 Proventil IH Q4HRT PRN Shortness Of Breath Amlodipine Besylate 10 mg 12/04/19 10:00 12/05/19 09:05 Amlodipine PO 10 mg QDAY WILL Administration Aspirin 81 mg 12/04/19 10:00 12/05/19 09:05 Baby Aspirin PO 81 mg QDAY WLIL Administration Carvedilol 25 mg 12/03/19 22:00 12/05/19 22:03 Coreg PO 25 mg BID WILL Administration Epoetin Leandro 10,000 unit 12/03/19 14:00 Procrit SUB-Q EDIE WILL Famotidine 40 mg 12/03/19 22:00 12/05/19 22:04 Pepcid PO 40 mg QHS WILL Administration Folic Acid 1 mg 12/04/19 10:00 12/05/19 09:05 Folvite PO 1 mg QDAY WILL Administration Furosemide 40 mg 12/04/19 10:00 12/05/19 09:05 Lasix PO 40 mg QDAY WILL Administration Sodium Chloride 100 mls @ 999 mls/hr 12/05/19 10:26 Nacl 0.9% IV EDIE PRN Hypotension Isosorbide Dinitrate 10 mg 12/03/19 22:00 12/05/19 22:03 Isordil Titradose PO 10 mg BID WILL Administration Levetiracetam 750 mg 12/03/19 22:00 12/05/19 22:04 Keppra PO 750 mg BID WILL Administration Nifedipine 60 mg 12/04/19 10:00 12/05/19 09:04 Procardia Xl PO 60 mg QDAY WILL Administration Ondansetron HCl 4 mg 12/03/19 13:12 Zofran IV Q8H PRN Nausea And Vomiting Ondansetron HCl 4 mg 12/03/19 14:00 12/06/19 07:13 Zofran Odt PO Not Given Q8HR WILL Pravastatin Sodium 20 mg 12/03/19 22:00 12/05/19 22:03 Pravachol PO 20 mg QHS WILL Administration Sodium Chloride 10 ml 12/03/19 22:00 12/05/19 22:10 Sodium Chloride Flush Syringe 10 Ml IV Not Given BID WILL Sodium Chloride 10 ml 12/03/19 13:12 Sodium Chloride Flush Syringe 10 Ml IV PRN PRN LINE FLUSH Thiamine HCl 100 mg 12/04/19 10:00 12/05/19 09:03 Vitamin B-1 PO 100 mg QDAY WILL Administration
--- NOTE | 2019-12-06 10:33 | Progress Note ---
Assessment and Plan (1) End stage renal disease Current Visit: Yes Status: Acute Plan to address problem: Nephrology consult placed in ED, strict I's/O, daily weight, monitor urine output every shift, monitor fluid balance, avoid nephrotoxic agents. Dialysis as per renal team. Getting dialysis today Patient does not want to go home because he is homeless Discussed with case management about arrangements with half-way (2) Cocaine dependence Current Visit: Yes Status: Acute Qualifiers: Substance use status: uncomplicated Qualified Code(s): F14.20 - Cocaine dependence, uncomplicated Plan to address problem: Supportive care, behavior change counseling, patient counseled regarding the risk of cocaine use patient acknowledges understanding risk of worsening symptoms, worsening renal function, worsening heart disease, and . Counseled the patient (3) Malignant hypertension Current Visit: Yes Status: Acute Plan to address problem: Blood pressure better Medications adjusted (4) Noncompliance with medication regimen Current Visit: Yes Status: Acute Plan to address problem: Patient counseled about medication regimen (5) Noncompliance with renal dialysis Current Visit: Yes Status: Acute Patient counseled about compliance with hemodialysis (6) Systolic CHF Current Visit: Yes Status: Acute Qualifiers: Heart failure chronicity: acute on chronic Qualified Code(s): I50.23 - Acute on chronic systolic (congestive) heart failure Plan to address problem: Strict I's/O, daily weight, monitor urine output every shift, BNP, chest x-ray, supplemental oxygen, pulse oximetry, diuresis, afterload reduction, dialysis as per renal team. Continue hemodialysis regularly for ultrafiltration (7) Seizure disorder Current Visit: No Status: Chronic Plan to address problem: Keppra therapy, continue prehospital antiepileptic therapy, outpatient neurology follow-up. (8) DVT prophylaxis Current Visit: Yes Status: Acute Plan to address problem: SCD to bilateral lower extremities while in bed, patient is ambulatory. Subjective Date of service: 12/05/19 Principal diagnosis: Volume overload and end-stage renal disease Interval history: 59-year-old male with history of seizure disorder, hypertension, hyperlipidemia, medication noncompliance, nicotine dependence, cocaine dependence, systolic heart failure with ejection fraction of 25% comes in for sudden onset of seizure activity. Patient apparently consumed cocaine. Patient was given IV Keppra in the emergency room. Because of his noncompliance with outpatient dialysis and volume overload patient was admitted for emergent hemodialysis and seizure disorder management. Patient's blood pressure was very high 197/116 for which antihypertensives were started and IV hydralazine was started. Nephrology was consulted. Case management was consulted. i postdialysis patient feels better Wants to go to a half-way. Objective - Constitutional Vitals: Vital Signs - 12hr 12/05/19 12/06/19 22:35 05:37 Temperature 99.0 F 97.9 F Pulse Rate 70 53 L Respiratory 20 20 Rate Blood Pressure 148/83 171/88 O2 Sat by Pulse 95 92 Oximetry General appearance: Present: no acute distress, well-nourished - EENT Eyes: PERRL, EOM intact ENT: hearing intact, clear oral mucosa Ears: bilateral: normal - Neck Neck: supple, normal ROM - Respiratory Respiratory effort: normal Respiratory: bilateral: CTA - Breasts Breasts: normal - Cardiovascular Heart rate: 78 Rhythm: regular Heart Sounds: Present: S1 & S2. Absent: gallop, rub Extremities: pulses intact, No edema, normal color, Full ROM - Gastrointestinal General gastrointestinal: Present: soft, non-tender, non-distended, normal bowel sounds - Genitourinary Male genitourinary: normal - Integumentary Integumentary: clear, warm, dry - Musculoskeletal Musculoskeletal: 1, strength equal bilaterally - Neurologic Neurologic: moves all extremities - Psychiatric Psychiatric: memory intact, appropriate mood/affect, intact judgment & insight - Labs CBC & Chem 7: 12/04/19 04:06 12/04/19 04:06
--- NOTE | 2019-12-06 10:36 | Discharge Summary ---
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 Patient apparently consumed cocaine. Patient was given IV Keppra in the emergency room. Because of his noncompliance with outpatient dialysis and volume overload patient was admitted for emergent hemodialysis and seizure disorder management. Patient's blood pressure was very high 197/116 for which antihypertensives were started and IV hydralazine was started. Nephrology was consulted. Case management was consulted. i postdialysis patient feels better Wants to go to a long-term. (1) End stage renal disease Current Visit: Yes Status: Acute Plan to address problem: Nephrology consult placed in ED, strict I's/O, daily weight, monitor urine output every shift, monitor fluid balance, avoid nephrotoxic agents. Dialysis as per renal team. Getting dialysis today Patient does not want to go home because he is homeless Discussed with case management about arrangements with long-term (2) Cocaine dependence Current Visit: Yes Status: Acute Qualifiers: Substance use status: uncomplicated Qualified Code(s): F14.20 - Cocaine dependence, uncomplicated Plan to address problem: Supportive care, behavior change counseling, patient counseled regarding the risk of cocaine use patient acknowledges understanding risk of worsening symptoms, worsening renal function, worsening heart disease, and . Counseled the patient (3) Malignant hypertension Current Visit: Yes Status: Acute Plan to address problem: Blood pressure better Medications adjusted (4) Noncompliance with medication regimen Current Visit: Yes Status: Acute Plan to address problem: Patient counseled about medication regimen (5) Noncompliance with renal dialysis Current Visit: Yes Status: Acute Patient counseled about compliance with hemodialysis (6) Systolic CHF Current Visit: Yes Status: Acute Qualifiers: Heart failure chronicity: acute on chronic Qualified Code(s): I50.23 - Acute on chronic systolic (congestive) heart failure Plan to address problem: Strict I's/O, daily weight, monitor urine output every shift, BNP, chest x-ray, supplemental oxygen, pulse oximetry, diuresis, afterload reduction, dialysis as per renal team. Continue hemodialysis regularly for ultrafiltration (7) Seizure disorder Current Visit: No Status: Chronic Plan to address problem: Keppra therapy, continue prehospital antiepileptic therapy, outpatient neurology follow-up. Disposition: DC- TO HOME OR SELFCARE Core Measure Documentation - Palliative Care Palliative Care/ Comfort Measures: Not Applicable - Core Measures Any of the following diagnoses?: none Exam - Constitutional Vitals: Temp Pulse Resp BP Pulse Ox 97.9 F 53 L 20 171/88 92 12/06/19 05:37 12/06/19 05:37 12/06/19 05:37 12/06/19 05:37 12/06/19 05:37 General appearance: Present: no acute distress, well-nourished - EENT Eyes: Present: PERRL ENT: hearing intact, clear oral mucosa - Neck Neck: Present: supple, normal ROM - Respiratory Respiratory effort: normal Respiratory: bilateral: CTA - Cardiovascular Heart rate: 88 Rhythm: regular Heart Sounds: Present: S1 & S2. Absent: rub, click - Extremities Extremities: no ischemia, pulses intact, pulses symmetrical, No edema Peripheral Pulses: within normal limits - Abdominal General gastrointestinal: Present: soft, non-tender, non-distended, normal bowel sounds Male genitourinary: Present: normal - Integumentary Integumentary: Present: clear, warm, dry - Musculoskeletal Musculoskeletal: gait normal, strength equal bilaterally - Psychiatric Psychiatric: appropriate mood/affect, intact judgment & insight - Neurologic Neurologic: CNII-XII intact, moves all extremities Plan Activity: no restrictions Diet: renal Follow up with: PRIMARY CARE, [Primary Care Provider] - 3-5 Days CAITIE ENGLAND MD [Staff Physician] - 7 Days Prescriptions: amLODIPine 10 mg PO QDAY #30 tablet Aspirin [Aspirin BABY CHEW TAB] 81 mg PO QDAY #100 tab.chew Aspirin [Aspirin BABY CHEW TAB] 81 mg PO QDAY #30 tab.chew carvediloL [Coreg] 25 mg PO BID #60 tablet Folic Acid [Folvite] 1 mg PO QDAY #30 tablet Isosorbide Dinitrate [Isordil Titradose] 10 mg PO BID #60 tablet levETIRAcetam [Keppra TAB] 750 mg PO BID #60 tablet Furosemide [Lasix TAB] 40 mg PO QDAY #30 tablet Famotidine [Pepcid] 40 mg PO QHS #30 tablet Pravastatin [Pravachol] 20 mg PO QHS #30 tablet NIFEdipine XL [Procardia Xl] 60 mg PO QDAY #30 tablet Thiamine [Vitamin B-1] 100 mg PO QDAY #30 tablet
[2019-12-06] MEDS: carvediloL 25 MG TAB PO SCH ×2 (10:49→14:42)
[2019-12-06] MEDS: FOLIC ACID 1 MG TAB PO SCH ×2 (10:49→14:42)
[2019-12-06] MEDS: amLODIPine 10 MG TAB PO SCH ×2 (10:49→14:42)
[2019-12-06] MEDS: ISOSORBIDE DINITRATE 10 MG TAB PO SCH (10:49)
[2019-12-06] MEDS: ASPIRIN 81 MG TAB CHEW PO SCH ×2 (10:49→14:43)
[2019-12-06] MEDS: FUROSEMIDE 40 MG TAB PO SCH ×2 (10:50→14:41)
[2019-12-06] MEDS: THIAMINE 100 MG TAB PO SCH (10:50)
[2019-12-06] MEDS: levETIRAcetam 500 MG TAB PO SCH ×2 (10:50→14:43)
[2019-12-06] MEDS: NIFEdipine XL 60 MG TAB PO SCH ×2 (10:50→14:43)
[2019-12-06 20:11] VITALS: BP 152/91
== END 2019-12-06 15:05 | disposition home or self-care (01) | DRG 100 ==
LOC: ED 09:30 → 3A 13:12 → OBSVTOIN 12-06 10:28
PROVIDERS: ADMIT Internal Medicine; ATTEND Internal Medicine
PROC: 5A1D70Z Performance of Urinary Filtration, Intermittent, Less than 6 Hours Per Day (ICD-10-PCS; 2019-12-04)
PROC: 5A1D70Z Performance of Urinary Filtration, Intermittent, Less than 6 Hours Per Day (ICD-10-PCS; principal; 2019-12-06)
DX: G40.909 Epilepsy, unspecified, not intractable, without status epilepticus (principal); N18.6 End stage renal disease; I50.23 Acute on chronic systolic (congestive) heart failure; I13.2 Hypertensive heart and chronic kidney disease with heart failure and with stage 5 chronic kidney disease, or end stage renal disease; E87.2 Acidosis; F14.20 Cocaine dependence, uncomplicated; N25.81 Secondary hyperparathyroidism of renal origin; I42.9 Cardiomyopathy, unspecified; M19.90 Unspecified osteoarthritis, unspecified site; Z91.15 Patient's noncompliance with renal dialysis; J44.9 Chronic obstructive pulmonary disease, unspecified; F17.210 Nicotine dependence, cigarettes, uncomplicated; Z99.2 Dependence on renal dialysis; Z82.49 Family history of ischemic heart disease and other diseases of the circulatory system; E78.5 Hyperlipidemia, unspecified; Z91.14 Patient's other noncompliance with medication regimen; E87.70 Fluid overload, unspecified; D63.1 Anemia in chronic kidney disease; D72.819 Decreased white blood cell count, unspecified; R00.1 Bradycardia, unspecified
CPT/HCPCS: 36415; 70450; 71045; 72100; 80048; 80053; 80074; 80076; 80307; 81001; 82550; 82553; 83735; 83880; 84100; 85025; 85610; 85730; 87040; 87086; 93005; 93010; 94640; G0378; A9270-GY; J0360; J1953; J7030; Q0162

== ENCOUNTER 2019-12-17 09:46 | Emergency (ER) | payer OTHER ==
[2019-12-17] MEDS ORDERED: levETIRAcetam 1,000 MG in SODIUM CHLORIDE 0.9% 100 ML IV ONE (10:12)
--- NOTE | 2019-12-17 10:45 | Emergency Department Report ---
ED Seizure HPI - General Stated Complaint: SZ Time Seen by Provider: 12/17/19 10:06 - History of Present Illness Initial Comments: 59-year-old male with history of seizure disorder, hypertension, cocaine abuse, CHF, ESRD, presents the ED after having a seizure prior to arrival. Patient had a witnessed seizure and then fell out of the chair onto his face. Patient currently has swelling to the lip. Patient states he was initially diagnosed with seizures approximately 1 year ago. States he has been noncompliant with any seizure medication up until a couple weeks ago when he was admitted for seizures here at [facility]. Patient was given Keppra while inpatient, and given prescription upon discharge. Patient admits he has not filled his Keppra prescription, and therefore has not been taking any antiepileptic medication. Patient also reports cocaine use "either last night or this morning. "Patient is also on dialysis, states he was last dialyzed 4 days ago. He states he missed his last dialysis session 2 days ago, "Because I'm casper eless." MD Complaint: seizure -: This morning Description of Episode: loss of consciousness Witnessed:: Yes Trauma: Yes Seizure History: known seizure disorder, history of non-compliance Possible Precipitating Event: head injury Associated Symptoms: denies other symptoms Treatments Prior to Arrival: none - Related Data Previous Rx's Medication Instructions Recorded Last Taken Type Epoetin Leandro 10,000 Unit [Procrit] 10,000 unit SUB-Q EDIE vial 09/01/19 Unknown Rx carvediloL [Coreg] 25 mg PO BID #60 tablet 09/01/19 Unknown Rx Epoetin Leandro 10,000 Unit [Procrit] 10,000 unit SUB-Q EDIE vial 09/19/19 Unknown Rx Amoxicillin/Potassium Clav 1 each PO BID #14 tablet 11/04/19 Unknown Rx [Augmentin 875-125 Tablet] Ondansetron [Zofran Odt] 4 mg PO Q8HR #10 tab.rapdis 11/07/19 Unknown Rx Aspirin [Aspirin BABY CHEW TAB] 81 mg PO QDAY #100 tab.chew 12/05/19 Unknown Rx Aspirin [Aspirin BABY CHEW TAB] 81 mg PO QDAY #30 tab.chew 12/05/19 Unknown Rx Famotidine [Pepcid] 40 mg PO QHS #30 tablet 12/05/19 Unknown Rx Folic Acid [Folvite] 1 mg PO QDAY #30 tablet 12/05/19 Unknown Rx Furosemide [Lasix TAB] 40 mg PO QDAY #30 tablet 12/05/19 Unknown Rx Isosorbide Dinitrate [Isordil 10 mg PO BID #60 tablet 12/05/19 Unknown Rx Titradose] NIFEdipine XL [Procardia Xl] 60 mg PO QDAY #30 tablet 12/05/19 Unknown Rx Pravastatin [Pravachol] 20 mg PO QHS #30 tablet 12/05/19 Unknown Rx Thiamine [Vitamin B-1] 100 mg PO QDAY #30 tablet 12/05/19 Unknown Rx amLODIPine 10 mg PO QDAY #30 tablet 12/05/19 Unknown Rx carvediloL [Coreg] 25 mg PO BID #60 tablet 12/05/19 Unknown Rx levETIRAcetam [Keppra TAB] 750 mg PO BID #60 tablet 12/17/19 Unknown Rx Allergies Allergy/AdvReac Type Severity Reaction Status Date / Time No Known Allergies Allergy Verified 12/17/19 10:58 ED Review of Systems ROS: Stated complaint: SZ Other details as noted in HPI Comment: All other systems reviewed and negative Neurological: headache ED Past Medical Hx - Past Medical History Hx Hypertension: Yes Hx Heart Attack/AMI: No Hx Congestive Heart Failure: No Hx Diabetes: No Hx Deep Vein Thrombosis: No Hx GERD: No Hx Liver Disease: No Hx Renal Disease: Yes (On Dialysis) Hx Sickle Cell Disease: No Hx Arthritis: Yes (knees) Hx Headaches / Migraines: No Hx Seizures: No Hx Asthma: No Hx COPD: Yes Hx Tuberculosis: No Hx Dementia: No Hx HIV: No - Surgical History Hx Coronary Stent: No Hx Pacemaker: No Hx Internal Defibrillator: No Additional Surgical History: rt chest permacath - Social History Smoking Status: Current Every Day Smoker Substance Use Type: Alcohol, Cocaine, Marijuana - Medications Home Medications: Home Medications Medication Instructions Recorded Confirmed Last Taken Type Epoetin Leandro 10,000 Unit [Procrit] 10,000 unit SUB-Q EDIE vial 09/01/19 11/05/19 Unknown Rx carvediloL [Coreg] 25 mg PO BID #60 tablet 09/01/19 11/05/19 Unknown Rx Epoetin Leandro 10,000 Unit [Procrit] 10,000 unit SUB-Q EDIE vial 09/19/19 11/05/19 Unknown Rx Amoxicillin/Potassium Clav 1 each PO BID #14 tablet 11/04/19 Unknown Rx [Augmentin 875-125 Tablet] Ondansetron [Zofran Odt] 4 mg PO Q8HR #10 tab.rapdis 11/07/19 Unknown Rx Aspirin [Aspirin BABY CHEW TAB] 81 mg PO QDAY #100 tab.chew 12/05/19 Unknown Rx Aspirin [Aspirin BABY CHEW TAB] 81 mg PO QDAY #30 tab.chew 12/05/19 Unknown Rx Famotidine [Pepcid] 40 mg PO QHS #30 tablet 12/05/19 Unknown Rx Folic Acid [Folvite] 1 mg PO QDAY #30 tablet 12/05/19 Unknown Rx Furosemide [Lasix TAB] 40 mg PO QDAY #30 tablet 12/05/19 Unknown Rx Isosorbide Dinitrate [Isordil 10 mg PO BID #60 tablet 12/05/19 Unknown Rx Titradose] NIFEdipine XL [Procardia Xl] 60 mg PO QDAY #30 tablet 12/05/19 Unknown Rx Pravastatin [Pravachol] 20 mg PO QHS #30 tablet 12/05/19 Unknown Rx Thiamine [Vitamin B-1] 100 mg PO QDAY #30 tablet 12/05/19 Unknown Rx amLODIPine 10 mg PO QDAY #30 tablet 12/05/19 Unknown Rx carvediloL [Coreg] 25 mg PO BID #60 tablet 12/05/19 Unknown Rx levETIRAcetam [Keppra TAB] 750 mg PO BID #60 tablet 12/17/19 Unknown Rx ED Physical Exam - General General appearance: alert, in no apparent distress - Head Head exam: Present: atraumatic, normocephalic - Eye Eye exam: Present: normal appearance, EOMI - ENT ENT exam: Present: mucous membranes moist, other (swelling to left lower lip) - Neck Neck exam: Present: normal inspection - Respiratory Respiratory exam: Present: normal lung sounds bilaterally. Absent: respiratory distress - Cardiovascular Cardiovascular Exam: Present: regular rate, normal rhythm - GI/Abdominal GI/Abdominal exam: Present: soft. Absent: distended, tenderness - Extremities Exam Extremities exam: Present: normal inspection - Neurological Exam Neurological exam: Present: alert, oriented X3, CN II-XII intact. Absent: motor sensory deficit - Psychiatric Psychiatric exam: Present: normal affect, normal mood - Skin Skin exam: Present: warm, dry, intact, normal color ED Course Vital Signs 12/17/19 12/17/19 12/17/19 09:50 10:14 10:15 Temperature 98.2 F Pulse Rate 85 82 81 Respiratory 20 20 22 Rate Blood Pressure 175/109 Blood Pressure 175/109 [Left] O2 Sat by Pulse 96 96 96 Oximetry 12/17/19 12/17/19 12/17/19 10:33 10:45 11:01 Temperature Pulse Rate Respiratory Rate Blood Pressure 175/109 175/109 175/109 Blood Pressure [Left] O2 Sat by Pulse 97 95 Oximetry ED Medical Decision Making - Lab Data Result diagrams: 12/17/19 10:50 12/17/19 10:50 - Radiology Data Radiology results: report reviewed, image reviewed - Medical Decision Making - cocaine abuse, seizure, noncompliant w/ medication therapy - missed dialysis, however, potassium nml, no resp distress, O2 sats nml - CT Head negative for any acute abnormality - pt A&O x 3 - will d/c home at this time - keppra prescription given - advised to f/u w/ nephrology - Differential Diagnosis electrolyte abnormality, intracranial abnormality Critical care attestation.: If time is entered above; I have spent that time in minutes in the direct care of this critically ill patient, excluding procedure time. ED Disposition Clinical Impression: Seizure, Cocaine abuse Disposition: - TO HOME OR SELFCARE Is pt being admited?: No Condition: Stable Instructions: Cocaine Abuse (ED), Recurrent Seizures Adult (ED) Prescriptions: levETIRAcetam [Keppra TAB] 750 mg PO BID #60 tablet Referrals: PRIMARY CARE, [Primary Care Provider] - 3-5 Days Time of Disposition: 12:22
[2019-12-17] MEDS ORDERED: levETIRAcetam 1000 MG/NS 0.75% 1,000 MG/100 ML BAG IV ONE (11:00)
--- NOTE | 2019-12-17 11:05 | Cat Scan Report ---
CT HEAD WITHOUT CONTRAST INDICATION: Closed head injury, headache TECHNIQUE: All CT scans at this facility use dose modulation, automated exposure control, iterative r econstruction or weight based dosing, when appropriate, to reduce radiation dose to as low as reasona eliceo achievable. COMPARISON: 12/03/2019 FINDINGS: Paranasal sinuses are clear. No acute/significant osseous abnormalities. There is no acute intracranial hemorrhage. No extra-axial fluid collections are seen. Ventricles and sulci are appropriate for age. Stable left hemispheric encephalomalacia consistent with a remote wate rshed infarct. Basilar cisterns are patent. Moderate deep periventricular white matter hypodensities are seen within both cerebral hemispheres. These are nonspecific but most likely due to microangiopat hy. No acute infarct is seen. CONCLUSION: 1. No acute intracranial findings. 2. Age-related atrophic and presumed microangiopathic changes. 3. Remote left watershed infarct. Signer Name: Chris Graham MD Signed: 12/17/2019 11:01 AM Workstation Name: [id number]
[2019-12-17 11:09] LABS: Basophils # (Auto) 0.1 K/mm3 (0.0-0.1); Basophils % (Auto) 1.4 % (0.0-1.8); Eosinophils # (Auto) 0.1 K/mm3 (0.0-0.4); Eosinophils % (Auto) 1.6 % (0.0-4.3); Hematocrit 30.1 % (35.5-45.6); Lymphocytes # (Auto) 0.7 K/mm3 (1.2-5.4); Mean Corpuscular HGB Conc 33 % (32-34); Mean Corpuscular Volume 98 fl (84-94); Monocytes # (Auto) 0.4 K/mm3 (0.0-0.8); Monocytes % (Auto) 7.4 % (0.0-7.3); Platelet Count 307 K/mm3 (140-440); Red Blood Count 3.08 M/mm3 (3.65-5.03); Red Cell Distribution Width 15.2 % (13.2-15.2)
[2019-12-17 11:22] LABS: Calcium 8.3 mg/dL (8.4-10.2)
[2019-12-17 11:52] LABS: Bacteria,Urine 1+ /HPF (Negative); Bilirubin,Urine NEG (Negative); Blood,Urine SM (Negative); Color,Urine Yellow (Yellow); Urobilinogen,Urine < 2.0 mg/dL (<2.0)
[2019-12-17 12:21] LABS: Amphetamine Screen,Urine PRESUMPTIVE NEGATIVE; Benzodiazepines Screen,Urine PRESUMPTIVE NEGATIVE; Cannabinoid Screen,Urine PRESUMPTIVE NEGATIVE; Methadone Screen,Urine PRESUMPTIVE NEGATIVE; Opiate Screen,Urine PRESUMPTIVE NEGATIVE
[2019-12-17 12:31] LABS: Cocaine Screen,Urine PRESUMPTIVE POSITIVE
[2019-12-17 19:55] VITALS: BP 169/96
== END 2019-12-17 18:55 | disposition home or self-care (01) ==
LOC: ED 09:46
DX: R56.9 Unspecified convulsions (principal); F14.10 Cocaine abuse, uncomplicated; I12.0 Hypertensive chronic kidney disease with stage 5 chronic kidney disease or end stage renal disease; N18.6 End stage renal disease; Z99.2 Dependence on renal dialysis; J44.9 Chronic obstructive pulmonary disease, unspecified; F17.200 Nicotine dependence, unspecified, uncomplicated; F12.10 Cannabis abuse, uncomplicated
CPT/HCPCS: 36415; 70450; 80048; 80307; 81001; 85025; 96374; 99284; J1953

== ENCOUNTER 2020-01-08 15:44 | Inpatient (IN) | payer OTHER | END 2020-01-19 16:42 | disposition home or self-care (01) | DRG 314 | LOC: ED 15:44 → 4A 18:43 | PROVIDERS: ADMIT Internal Medicine | PROC: 5A1D70Z Performance of Urinary Filtration, Intermittent, Less than 6 Hours Per Day (ICD-10-PCS; principal; 2020-01-09) | PROC: 5A1D70Z Performance of Urinary Filtration, Intermittent, Less than 6 Hours Per Day (ICD-10-PCS; 2020-01-11) | PROC: B51V1ZA Fluoroscopy of Other Veins using Low Osmolar Contrast, Guidance (ICD-10-PCS; 2020-01-12) | PROC: 0J2VXYZ Change Other Device in Upper Extremity Subcutaneous Tissue and Fascia, External Approach (ICD-10-PCS; 2020-01-12) | PROC: 5A1D70Z Performance of Urinary Filtration, Intermittent, Less than 6 Hours Per Day (ICD-10-PCS; 2020-01-13) | PROC: 5A1D70Z Performance of Urinary Filtration, Intermittent, Less than 6 Hours Per Day (ICD-10-PCS; 2020-01-15) | PROC: 0JH63XZ Insertion of Tunneled Vascular Access Device into Chest Subcutaneous Tissue and Fascia, Percutaneous Approach (ICD-10-PCS; 2020-01-17) | PROC: 02H633Z Insertion of Infusion Device into Right Atrium, Percutaneous Approach (ICD-10-PCS; 2020-01-17) | PROC: B548ZZA Ultrasonography of Superior Vena Cava, Guidance (ICD-10-PCS; 2020-01-17) | PROC: 02PA33Z Removal of Infusion Device from Heart, Percutaneous Approach (ICD-10-PCS; 2020-01-17) | PROC: B51V1ZA Fluoroscopy of Other Veins using Low Osmolar Contrast, Guidance (ICD-10-PCS; 2020-01-17) | PROC: B5181ZA Fluoroscopy of Superior Vena Cava using Low Osmolar Contrast, Guidance (ICD-10-PCS; 2020-01-17) | PROC: 5A1D70Z Performance of Urinary Filtration, Intermittent, Less than 6 Hours Per Day (ICD-10-PCS; 2020-01-18) | DX: T82.41XA Breakdown (mechanical) of vascular dialysis catheter, initial encounter (principal); N18.6 End stage renal disease; G93.41 Metabolic encephalopathy; N25.81 Secondary hyperparathyroidism of renal origin; F14.20 Cocaine dependence, uncomplicated; I13.2 Hypertensive heart and chronic kidney disease with heart failure and with stage 5 chronic kidney disease, or end stage renal disease; I50.22 Chronic systolic (congestive) heart failure; L03.114 Cellulitis of left upper limb; I82.622 Acute embolism and thrombosis of deep veins of left upper extremity; E87.2 Acidosis; E87.70 Fluid overload, unspecified; E87.5 Hyperkalemia; G40.909 Epilepsy, unspecified, not intractable, without status epilepticus; F17.200 Nicotine dependence, unspecified, uncomplicated; E78.5 Hyperlipidemia, unspecified; J44.9 Chronic obstructive pulmonary disease, unspecified; M19.90 Unspecified osteoarthritis, unspecified site; D69.6 Thrombocytopenia, unspecified; D63.1 Anemia in chronic kidney disease; E83.39 Other disorders of phosphorus metabolism; Z22.321 Carrier or suspected carrier of Methicillin susceptible Staphylococcus aureus; Y83.9 Surgical procedure, unspecified as the cause of abnormal reaction of the patient, or of later complication, without mention of misadventure at the time of the procedure; Y92.89 Other specified places as the place of occurrence of the external cause; G56.02 Carpal tunnel syndrome, left upper limb; E83.9 Disorder of mineral metabolism, unspecified; Z91.14 Patient's other noncompliance with medication regimen; Z91.15 Patient's noncompliance with renal dialysis; Z59.0 Homelessness; Z88.8 Allergy status to other drugs, medicaments and biological substances; Z79.899 Other long term (current) drug therapy; Z99.2 Dependence on renal dialysis ==

== ENCOUNTER 2020-01-25 04:00 | Emergency (ER) | payer OTHER ==
--- NOTE | 2020-01-25 04:13 | Emergency Department Report ---
ED General Adult HPI - General Chief complaint: Neck Pain/Injury Stated complaint: NECK PAIN Time Seen by Provider: 01/25/20 04:05 Source: EMS Mode of arrival: Stretcher Limitations: Physical Limitation - Related Data Previous Rx's Medication Instructions Recorded Last Taken Type Epoetin Leandro 10,000 Unit [Procrit] 10,000 unit SUB-Q EDIE vial 09/01/19 01/02/20 Rx Epoetin Leandro 10,000 Unit [Procrit] 10,000 unit SUB-Q EDIE vial 09/19/19 01/02/20 Rx Aspirin [Aspirin BABY CHEW TAB] 81 mg PO QDAY #30 tab.chew 12/05/19 01/09/20 11:48 Rx Famotidine [Pepcid] 40 mg PO QHS #30 tablet 12/05/19 Unknown Rx levETIRAcetam [Keppra TAB] 750 mg PO BID #60 tablet 12/18/19 01/02/20 Rx Apixaban [Eliquis starter pack] 5 mg PO BID #1 tab.ds.pk 12/21/19 01/09/20 11:49 Rx Apixaban [Eliquis] 5 mg PO BID #60 tablet 12/21/19 01/09/20 11:48 Rx Acetaminophen [Acetaminophen TAB] 325 mg PO Q4H PRN #30 tablet 12/22/19 01/09/20 11:49 Rx Folic Acid [Folvite] 1 mg PO QDAY #30 tablet 12/22/19 Unknown Rx Furosemide [Lasix TAB] 40 mg PO QDAY #30 tablet 12/22/19 Unknown Rx Isosorbide Dinitrate [Isordil] 10 mg PO BID #60 tablet 12/22/19 Unknown Rx NIFEdipine XL [Procardia Xl] 60 mg PO QDAY #30 tablet 12/22/19 Unknown Rx Ondansetron [Zofran ODT TAB] 4 mg PO Q8HR #10 tab.rapdis 12/22/19 01/09/20 11:47 Rx amLODIPine 10 mg PO QDAY #30 tablet 12/22/19 Unknown Rx carvediloL [Coreg] 25 mg PO BID #60 tablet 12/22/19 01/02/20 Rx Isosorbide Dinitrate [Isordil] 10 mg PO BID tablet 01/09/20 Unknown Rx Pravastatin [Pravachol] 20 mg PO QHS tablet 01/09/20 Unknown Rx oxyCODONE /ACETAMINOPHEN [Percocet 1 tab PO Q6H PRN tablet 01/09/20 Unknown Rx 5/325 mg] Apixaban [Eliquis] 5 mg PO Q12HR #60 tablet 01/18/20 Unknown Rx Calcium Acetate [Phoslo] 1,334 mg PO TIDWM #90 capsule 01/18/20 Unknown Rx Thiamine [Vitamin B-1] 100 mg PO QDAY #30 tablet 01/18/20 Unknown Rx Allergies Allergy/AdvReac Type Severity Reaction Status Date / Time heparin AdvReac Anaphylaxis Verified 01/18/20 14:10 ED Review of Systems ROS: Stated complaint: NECK PAIN Other details as noted in HPI ED Past Medical Hx - Past Medical History Previous Medical History?: Yes Hx Hypertension: Yes Hx Heart Attack/AMI: No (CHF, EF 25-30%) Hx Congestive Heart Failure: No Hx Diabetes: No Hx Deep Vein Thrombosis: No Hx GERD: No Hx Liver Disease: No Hx Renal Disease: Yes (On Dialysis) Hx Sickle Cell Disease: No Hx Arthritis: Yes (knees) Hx Headaches / Migraines: No Hx Seizures: Yes (non-compliant with meds) Hx Asthma: No Hx COPD: Yes Hx Tuberculosis: No Hx Dementia: No Hx HIV: No Additional medical history: non compliant with HD - Surgical History Past Surgical History?: Yes Hx Coronary Stent: No Hx Pacemaker: No Hx Internal Defibrillator: No Additional Surgical History: rt chest permacath - Social History Smoking Status: Current Every Day Smoker Substance Use Type: None - Medications Home Medications: Home Medications Medication Instructions Recorded Confirmed Last Taken Type Epoetin Leandro 10,000 Unit [Procrit] 10,000 unit SUB-Q EDIE vial 09/01/19 01/09/20 01/02/20 Rx Epoetin Leandro 10,000 Unit [Procrit] 10,000 unit SUB-Q EDIE vial 09/19/19 01/09/20 01/02/20 Rx Aspirin [Aspirin BABY CHEW TAB] 81 mg PO QDAY #30 tab.chew 12/05/19 01/09/20 01/09/20 11:48 Rx Famotidine [Pepcid] 40 mg PO QHS #30 tablet 12/05/19 01/09/20 Unknown Rx levETIRAcetam [Keppra TAB] 750 mg PO BID #60 tablet 12/18/19 01/09/20 01/02/20 Rx Apixaban [Eliquis starter pack] 5 mg PO BID #1 tab.ds.pk 12/21/19 01/09/20 01/09/20 11:49 Rx Apixaban [Eliquis] 5 mg PO BID #60 tablet 12/21/19 01/09/20 01/09/20 11:48 Rx Acetaminophen [Acetaminophen TAB] 325 mg PO Q4H PRN #30 tablet 12/22/19 01/09/20 01/09/20 11:49 Rx Folic Acid [Folvite] 1 mg PO QDAY #30 tablet 12/22/19 01/09/20 Unknown Rx Furosemide [Lasix TAB] 40 mg PO QDAY #30 tablet 12/22/19 01/09/20 Unknown Rx Isosorbide Dinitrate [Isordil] 10 mg PO BID #60 tablet 12/22/19 01/09/20 Unknown Rx NIFEdipine XL [Procardia Xl] 60 mg PO QDAY #30 tablet 12/22/19 01/09/20 Unknown Rx Ondansetron [Zofran ODT TAB] 4 mg PO Q8HR #10 tab.rapdis 12/22/19 01/09/20 01/09/20 11:47 Rx amLODIPine 10 mg PO QDAY #30 tablet 12/22/19 01/09/20 Unknown Rx carvediloL [Coreg] 25 mg PO BID #60 tablet 12/22/19 01/09/20 01/02/20 Rx Isosorbide Dinitrate [Isordil] 10 mg PO BID tablet 01/09/20 Unknown Rx Pravastatin [Pravachol] 20 mg PO QHS tablet 01/09/20 Unknown Rx oxyCODONE /ACETAMINOPHEN [Percocet 1 tab PO Q6H PRN tablet 01/09/20 Unknown Rx 5/325 mg] Apixaban [Eliquis] 5 mg PO Q12HR #60 tablet 01/18/20 Unknown Rx Calcium Acetate [Phoslo] 1,334 mg PO TIDWM #90 capsule 01/18/20 Unknown Rx Thiamine [Vitamin B-1] 100 mg PO QDAY #30 tablet 01/18/20 Unknown Rx ED Physical Exam - General Limitations: Physical Limitation ED Medical Decision Making - Radiology Data Radiology results: report reviewed, image reviewed Print Report Referring Physician: KAIA SALAZAR Patient Name: RADHA SOTO Date of : 1960 Sex: Male Report Date: 2020-01-17 Report Status: Finalized Findings [facility] [address] [place] [address] Vascular Lab Report Signed Patient: RADHA SOTO MR#: [id number] : 1960 Acct:[id number] Age/Sex: 59 / M ADM Date: 01/08/20 Loc: 4A A475-[address]: ROSETTE RUBIO MD Ordering Physician: KAIA SALAZAR MD Date of Service: 01/15/20 Procedure(s): VL venous duplex UE LT Accession Number(s): [id number] cc: KAIA SALAZAR MD Left upper extremity venous Doppler Ultrasound HISTORY: LUE swelling. TECHNIQUE: Grayscale and color imaging performed. COMPARISON: Venous ultrasound from 01/10/2020 FINDINGS: There is chronic thrombus in the left internal jugular vein. The subclavian, axillary, brachial, basilic, radial, and ulnar veins are patent without thrombus. There is also superficial thrombus in the cephalic vein and AV fistula in the upper forearm region. IMPRESSION: 1. 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 2. Superficial thrombus in the cephalic vein and in the AV fistula. Findings were called to the patient's nurse Humera at 10:53 AM Eastern standard time today. Signer Name: Mark Gonzales MD Signed: 01/17/2020 11:22 AM Workstation Name: [id number] Transcribed By: MARILIN Dictated By: Mark Gonzales MD Electronically Authenticated By: Mark Gonzales MD Signed Date/Time: 01/17/20 1122 DD/ [id number] TD/TT: Critical care attestation.: If time is entered above; I have spent that time in minutes in the direct care of this critically ill patient, excluding procedure time. ED Disposition Condition: Stable Referrals: PRIMARY CARE, [Primary Care Provider] - 3-5 Days
[2020-01-25] MEDS ORDERED: ACETAMINOPHEN 325 MG TAB PO PRN (04:15)
--- NOTE | 2020-01-25 04:24 | Emergency Department Report ---
ED General Adult HPI - General Chief complaint: Neck Pain/Injury Stated complaint: NECK PAIN PUI?: No Time Seen by Provider: 01/25/20 04:05 Source: patient, EMS ( EMS documentation not available at time of chart dictation ), RN notes reviewed, old records reviewed Mode of arrival: Stretcher Limitations: No Limitations - History of Present Illness Initial comments: Patient is a 59-year-old gentleman. I have evaluated this patient in the past. His wind turbine mechanical engineer is Dr. Victoria. Past medical history includes hypertension, high cholesterol, seizure, noncompliance, arthritis, nicotine dependence, cocaine dependence, systolic CHF. Patient was recently admitted to this hospital earlier on this month. He had a complicated hospital stay, found to have a malfunctioning hemodialysis catheter, that had clotted off, and was found to have MSSA staph bacteremia, with left upper extremity cellulitis and edema, was supposed to complete 6 weeks of antibiotic therapy with dialysis as per infectious disease. He also had an infected hemodialysis catheter, which underwent removal, no new catheter was placed on January 12, 2020. A new tunnel was created secondary to joana purulence in the form of tunnel. Plan is to treat for 6 weeks of infection. The patient also is supposed to be receiving antibiotics while on dialysis, and was also found to have an upper extremity DVT, and started on Eliquis therapy. The patient also had an AV fistula placed on December 20, it is not ready for dialysis as of yet. The patient also has a history of heparin-induced thrombocytopenia, hypertension, and noncompliance. He presents today with a complaint of nontraumatic right-sided trapezius pain. He states the pain is present for 1 week. The pain is sharp and throbbing, increases with palpation, range of motion, and it decreases with rest. It is currently Friday, the patient reports no hemodialysis for 1 week. There is no complaint of cough, fever, vomiting, irritative or obstructive urinary symptoms. The patient also complains of generalized pruritus. The patient makes no complaint of homicidality or suicidality. -: Gradual, days(s) Location: right, upper extremity Quality: aching Consistency: constant Improves with: rest Worsens with: movement - Related Data Previous Rx's Medication Instructions Recorded Last Taken Type Epoetin Leandro 10,000 Unit [Procrit] 10,000 unit SUB-Q EDIE vial 09/01/19 01/02/20 Rx Epoetin Leandro 10,000 Unit [Procrit] 10,000 unit SUB-Q EDIE vial 09/19/19 01/02/20 Rx Famotidine [Pepcid] 40 mg PO QHS #30 tablet 12/05/19 Unknown Rx Apixaban [Eliquis starter pack] 5 mg PO BID #1 tab.ds.pk 12/21/19 01/09/20 11:49 Rx Acetaminophen [Acetaminophen TAB] 325 mg PO Q4H PRN #30 tablet 12/22/19 01/09/20 11:49 Rx Furosemide [Lasix TAB] 40 mg PO QDAY #30 tablet 12/22/19 Unknown Rx NIFEdipine XL [Procardia Xl] 60 mg PO QDAY #30 tablet 12/22/19 Unknown Rx Ondansetron [Zofran ODT TAB] 4 mg PO Q8HR #10 tab.rapdis 12/22/19 01/09/20 11:47 Rx Isosorbide Dinitrate [Isordil] 10 mg PO BID tablet 01/09/20 Unknown Rx oxyCODONE /ACETAMINOPHEN [Percocet 1 tab PO Q6H PRN tablet 01/09/20 Unknown Rx 5/325 mg] Apixaban [Eliquis] 5 mg PO Q12HR #60 tablet 01/18/20 Unknown Rx Calcium Acetate [Phoslo] 1,334 mg PO TIDWM #90 capsule 01/18/20 Unknown Rx Apixaban [Eliquis] 5 mg PO BID #60 tablet 01/25/20 Unknown Rx Aspirin [Aspirin BABY CHEW TAB] 81 mg PO QDAY #30 tab.chew 01/25/20 Unknown Rx Folic Acid [Folvite] 1 mg PO QDAY #30 tablet 01/25/20 Unknown Rx Furosemide [Lasix TAB] 40 mg PO QDAY #30 tablet 01/25/20 Unknown Rx Isosorbide Dinitrate [Isordil] 10 mg PO BID #60 tablet 01/25/20 Unknown Rx NIFEdipine XL [Procardia Xl] 60 mg PO QDAY #30 tablet 01/25/20 Unknown Rx Pravastatin [Pravachol] 20 mg PO QHS #30 tablet 01/25/20 Unknown Rx Thiamine [Vitamin B-1] 100 mg PO QDAY #30 tablet 01/25/20 Unknown Rx amLODIPine 10 mg PO QDAY #30 tablet 01/25/20 Unknown Rx carvediloL [Coreg] 25 mg PO BID #60 tablet 01/25/20 Unknown Rx levETIRAcetam [Keppra TAB] 750 mg PO BID #60 tablet 01/25/20 Unknown Rx Allergies Allergy/AdvReac Type Severity Reaction Status Date / Time heparin AdvReac Anaphylaxis Verified 01/18/20 14:10 ED Review of Systems ROS: Stated complaint: NECK PAIN Other details as noted in HPI Constitutional: denies: fever Eyes: denies: eye discharge ENT: denies: congestion Cardiovascular: denies: chest pain Gastrointestinal: denies: abdominal pain Genitourinary: as per HPI. denies: dysuria Musculoskeletal: myalgia Skin: pruritus Neurological: weakness Psychiatric: as per HPI Hematological/Lymphatic: as per HPI ED Past Medical Hx - Past Medical History Previous Medical History?: Yes Hx Hypertension: Yes Hx Heart Attack/AMI: No (CHF, EF 25-30%) Hx Congestive Heart Failure: No Hx Diabetes: No Hx Deep Vein Thrombosis: No Hx GERD: No Hx Liver Disease: No Hx Renal Disease: Yes (On Dialysis) Hx Sickle Cell Disease: No Hx Arthritis: Yes (knees) Hx Headaches / Migraines: No Hx Seizures: Yes (non-compliant with meds) Hx Asthma: No Hx COPD: Yes Hx Tuberculosis: No Hx Dementia: No Hx HIV: No Additional medical history: non compliant with HD - Surgical History Past Surgical History?: Yes Hx Coronary Stent: No Hx Pacemaker: No Hx Internal Defibrillator: No Additional Surgical History: rt chest permacath - Social History Smoking Status: Current Every Day Smoker Substance Use Type: None - Medications Home Medications: Home Medications Medication Instructions Recorded Confirmed Last Taken Type Epoetin Leandro 10,000 Unit [Procrit] 10,000 unit SUB-Q EDIE vial 09/01/19 01/09/20 01/02/20 Rx Epoetin Leandro 10,000 Unit [Procrit] 10,000 unit SUB-Q EDIE vial 09/19/19 01/09/20 01/02/20 Rx Famotidine [Pepcid] 40 mg PO QHS #30 tablet 12/05/19 01/09/20 Unknown Rx Apixaban [Eliquis starter pack] 5 mg PO BID #1 tab.ds.pk 12/21/19 01/09/20 01/09/20 11:49 Rx Acetaminophen [Acetaminophen TAB] 325 mg PO Q4H PRN #30 tablet 12/22/19 01/09/20 01/09/20 11:49 Rx Furosemide [Lasix TAB] 40 mg PO QDAY #30 tablet 12/22/19 01/09/20 Unknown Rx NIFEdipine XL [Procardia Xl] 60 mg PO QDAY #30 tablet 12/22/19 01/09/20 Unknown Rx Ondansetron [Zofran ODT TAB] 4 mg PO Q8HR #10 tab.rapdis 12/22/19 01/09/20 01/09/20 11:47 Rx Isosorbide Dinitrate [Isordil] 10 mg PO BID tablet 01/09/20 Unknown Rx oxyCODONE /ACETAMINOPHEN [Percocet 1 tab PO Q6H PRN tablet 01/09/20 Unknown Rx 5/325 mg] Apixaban [Eliquis] 5 mg PO Q12HR #60 tablet 01/18/20 Unknown Rx Calcium Acetate [Phoslo] 1,334 mg PO TIDWM #90 capsule 01/18/20 Unknown Rx Apixaban [Eliquis] 5 mg PO BID #60 tablet 01/25/20 Unknown Rx Aspirin [Aspirin BABY CHEW TAB] 81 mg PO QDAY #30 tab.chew 01/25/20 Unknown Rx Folic Acid [Folvite] 1 mg PO QDAY #30 tablet 01/25/20 Unknown Rx Furosemide [Lasix TAB] 40 mg PO QDAY #30 tablet 01/25/20 Unknown Rx Isosorbide Dinitrate [Isordil] 10 mg PO BID #60 tablet 01/25/20 Unknown Rx NIFEdipine XL [Procardia Xl] 60 mg PO QDAY #30 tablet 01/25/20 Unknown Rx Pravastatin [Pravachol] 20 mg PO QHS #30 tablet 01/25/20 Unknown Rx Thiamine [Vitamin B-1] 100 mg PO QDAY #30 tablet 01/25/20 Unknown Rx amLODIPine 10 mg PO QDAY #30 tablet 01/25/20 Unknown Rx carvediloL [Coreg] 25 mg PO BID #60 tablet 01/25/20 Unknown Rx levETIRAcetam [Keppra TAB] 750 mg PO BID #60 tablet 01/25/20 Unknown Rx ED Physical Exam - General Limitations: No Limitations General appearance: alert, anxious - Head Head exam: Present: atraumatic, normocephalic - Eye Eye exam: Present: normal appearance, EOMI. Absent: nystagmus - ENT ENT exam: Present: normal exam, normal orophraynx, mucous membranes moist, normal external ear exam - Neck Neck exam: Present: normal inspection, full ROM, other (There is reproducible right-sided trapezius tenderness, and paracervical muscular tenderness. There is JVD noted. There is no redness, pus or streaking). Absent: meningismus, lymphadenopathy - Respiratory Respiratory exam: Present: normal lung sounds bilaterally, other (Right-sided hemodialysis access catheter noted, without redness, pus or streaking.). Absent: respiratory distress - Cardiovascular Cardiovascular Exam: Present: regular rate, normal rhythm, normal heart sounds. Absent: bradycardia, tachycardia, irregular rhythm, systolic murmur, diastolic murmur, rubs, gallop - GI/Abdominal GI/Abdominal exam: Present: soft, normal bowel sounds. Absent: distended, tenderness, guarding, rebound, rigid - Rectal Rectal exam: Present: deferred - Extremities Exam Extremities exam: Present: full ROM, other (2+ pulses noted in the bilateral upper and lower extremities. There is no palpable cord. negative Homans sign. Muscular compartments are soft. The pelvis is stable.). Absent: normal inspection (Chronic edema noted in the left upper extremity. There are linear scratch mendoza noted on the bilateral lower extremities without evidence of cellulitis or superinfection), calf tenderness - Back Exam Back exam: Present: normal inspection, full ROM, muscle spasm, paraspinal tenderness. Absent: tenderness, CVA tenderness (R), vertebral tenderness - Neurological Exam Neurological exam: Present: alert, other (No facial droop. Tongue midline. Extraocular movements intact bilaterally. Facial sensation intact to light touch in V1, V2, V3 distribution bilaterally. 5 and a 5 strength in 4 extremities. Sensation intact to light touch in 4 extremities.). Absent: motor sensory deficit - Psychiatric Psychiatric exam: Present: anxious - Skin Skin exam: Present: warm, dry, intact, normal color. Absent: rash ED Course Vital Signs 01/25/20 01/25/20 01/25/20 04:08 04:16 04:46 Temperature 97.8 F Pulse Rate 75 74 65 Respiratory 18 13 19 Rate Blood Pressure 213/129 216/124 Blood Pressure 213/129 [Right] O2 Sat by Pulse 96 99 97 Oximetry 01/25/20 05:00 Temperature Pulse Rate 81 Respiratory 19 Rate Blood Pressure 189/114 Blood Pressure [Right] O2 Sat by Pulse 91 Oximetry - Reevaluation(s) Reevaluation #1: 01/25/20 04:24 Differential diagnosis, including but not limited to: Muscular sprain, muscular strain, myositis, subclavian DVT, jugular DVT, hypertensive urgency, noncompliance, electrolyte derangement, MSSA bacteremia Assessment and plan: 59-year-old gentleman who presents with an acute complaint of right-sided trapezius pain. He has numerous other chronic issues which appear to be poorly managed secondary to noncompliance. Patient does not appear to have an active abscess, cellulitis, or compartment syndrome, clinically doubt infection at this time, given underlying renal insufficiency, he is not an NSAID candidate. However, acetaminophen is appropriate for pain control. I have not identified a condition that would require narcotic therapy as of now. We will continue the patient's current home medications. Appropriate laboratory studies, EKG, x-ray of the chest have been requested. We will reassess after data points have resulted. Reevaluation #2: 01/25/20 05:02 Patient resting comfortably, and in no acute distress. Anemia appears to be chronic. The patient is not hyperkalemic. He has demonstrated mild azotemia and uremia, however, he is not clinically encephalopathic, or altered. Blood pressure is chronically elevated. The patient does not appear to have an emergent medical condition at this time that would require hospitalization or emergency hemodialysis. He is given a dose of antibiotics while here in the emergency room. During his previous hospitalization, as per review of old case management notes, his paperwork was sent to [facility] dialysis ( [facility] dialysis clinic per request). He will need to follow-up that to continue outpatient therapy. I will reprint his old prescriptions, and also provide him with a good Rx prescription card. To further assist, I will place a case management consult to facilitate outpatient management. However, the patient is medically suitable for discharge at this time 01/25/20 05:03 Reevaluation #3: 01/25/20 05:32 After being told that he was going to be discharged, the patient then endorsed a complaint of suicidality, which she initially denied to me during my history and physical. The patient presents as alert and oriented x3, clinically sober, with appropriate decision-making capacity, and free from distracting injury. Highly suspect that the patient is endorsing this complaint for the purposes of secondary gain and malingering. Furthermore, the patient has a history of substance abuse, homelessness, and noncompliance, these risk factors are not currently modifiable with acute inpatient psychiatric hospitalization, and psychiatric hospitalization at this time is contraindicated, as it will reinforce maladaptive behaviors of coming to the hospital when the patient does not have halfway or experiences other inconveniences. 01/25/20 05:34 ED Medical Decision Making - Lab Data Result diagrams: 01/25/20 04:28 01/25/20 04:28 Vital Signs 01/25/20 04:08 Temperature 97.8 F Pulse Rate 75 Respiratory 18 Rate Blood Pressure 213/129 [Right] O2 Sat by Pulse 96 Oximetry Vital Signs 01/25/20 04:08 Temperature 97.8 F Pulse Rate 75 Respiratory 18 Rate Blood Pressure 213/129 [Right] O2 Sat by Pulse 96 Oximetry Lab Results 01/25/20 01/25/20 01/25/20 Range/Units 04:28 04:28 04:28 WBC 4.1 L (4.5-11.0) K/mm3 RBC 2.39 L (3.65-5.03) M/mm3 Hgb 7.5 L (11.8-15.2) gm/dl Hct 22.7 L (35.5-45.6) % MCV 95 H (84-94) fl MCH 31 (28-32) pg MCHC 33 (32-34) % RDW 14.9 (13.2-15.2) % Plt Count 338 (140-440) K/mm3 Lymph % (Auto) 17.5 (13.4-35.0) % [place] % (Auto) 8.0 H (0.0-7.3) % Eos % (Auto) 1.2 (0.0-4.3) % Baso % (Auto) 2.9 H (0.0-1.8) % Lymph # 0.7 L (1.2-5.4) K/mm3 [place] # 0.3 (0.0-0.8) K/mm3 Eos # 0.0 (0.0-0.4) K/mm3 Baso # 0.1 (0.0-0.1) K/mm3 Seg Neutrophils % 70.4 H (40.0-70.0) % Seg Neutrophils # 2.9 (1.8-7.7) K/mm3 PT 14.8 (12.2-14.9) Sec. INR 1.14 H (0.87-1.13) APTT 32.8 (24.2-36.6) Sec. Sodium 135 L (137-145) mmol/L Potassium 4.9 (3.6-5.0) mmol/L Chloride 94.2 L (98-107) mmol/L Carbon Dioxide 21 L (22-30) mmol/L Anion Gap 25 mmol/L BUN 80 H (9-20) mg/dL Creatinine 12.6 H (0.8-1.5) mg/dL Estimated GFR 5 ml/min BUN/Creatinine Ratio 6 % Glucose 94 (75-100) mg/dL Lactic Acid (0.7-2.0) mmol/L Calcium 7.6 L (8.4-10.2) mg/dL Magnesium 2.40 H (1.7-2.3) mg/dL Total Bilirubin 0.20 (0.1-1.2) mg/dL AST 17 (5-40) units/L Alkaline Phosphatase 93 (35-129) units/L Total Creatine Kinase 61 (55-170) units/L Total Protein 7.4 (6.3-8.2) g/dL Albumin 2.9 L (3.9-5) g/dL Albumin/Globulin Ratio 0.6 % 04/28/20 Range/Units 04:28 WBC (4.5-11.0) K/mm3 RBC (3.65-5.03) M/mm3 Hgb (11.8-15.2) gm/dl Hct (35.5-45.6) % MCV (84-94) fl MCH (28-32) pg MCHC (32-34) % RDW (13.2-15.2) % Plt Count (140-440) K/mm3 Lymph % (Auto) (13.4-35.0) % [place] % (Auto) (0.0-7.3) % Eos % (Auto) (0.0-4.3) % Baso % (Auto) (0.0-1.8) % Lymph # (1.2-5.4) K/mm3 [place] # (0.0-0.8) K/mm3 Eos # (0.0-0.4) K/mm3 Baso # (0.0-0.1) K/mm3 Seg Neutrophils % (40.0-70.0) % Seg Neutrophils # (1.8-7.7) K/mm3 PT (12.2-14.9) Sec. INR (0.87-1.13) APTT (24.2-36.6) Sec. Sodium (137-145) mmol/L Potassium (3.6-5.0) mmol/L Chloride (98-107) mmol/L Carbon Dioxide (22-30) mmol/L Anion Gap mmol/L BUN (9-20) mg/dL Creatinine (0.8-1.5) mg/dL Estimated GFR ml/min BUN/Creatinine Ratio % Glucose (75-100) mg/dL Lactic Acid 1.00 (0.7-2.0) mmol/L Calcium (8.4-10.2) mg/dL Magnesium (1.7-2.3) mg/dL Total Bilirubin (0.1-1.2) mg/dL AST (5-40) units/L Alkaline Phosphatase (35-129) units/L Total Creatine Kinase (55-170) units/L Total Protein (6.3-8.2) g/dL Albumin (3.9-5) g/dL Albumin/Globulin Ratio % - EKG Data -: EKG Interpreted by Me EKG shows normal: sinus rhythm Rate: normal - EKG Data 01/25/20 04:35 Sinus rhythm, 66 bpm, there is a normal axis, the TX interval is prolonged, the QTC is 445 ms, there is poor R wave progression, nonspecific T wave abnormalities. This EKG is abnormal. It is not a STEMI. Motion artifact noted. Question PVCs - Radiology Data Radiology results: pending, report reviewed, image reviewed interpreted by me: X-ray of the chest is negative for acute disease, right-sided vascular access catheter is noted. Print Report Referring Physician: KAIA SALAZAR Patient Name: RADHA SOTO Date of : 1960 Sex: Male Report Date: 2020-01-10 Report Status: Finalized Findings [facility] [address] [place] [address] Vascular Lab Report Signed Patient: RADHA SOTO MR#: [id number] : 1960 Acct:[id number] Age/Sex: 59 / M ADM Date: 01/08/20 Loc: 4A A475-[address]: ROSETTE RUBIO MD Ordering Physician: KAIA SALAZAR MD Date of Service: 01/10/20 Procedure(s): VL venous duplex UE BILAT Accession Number(s): [id number] cc: KAIA SALAZAR MD DUPLEX DOPPLER UPPER EXTREMITY VENOUS, BILATERAL INDICATION / CLINICAL INFORMATION: check IJs, bacteremia. TECHNIQUE: Duplex doppler imaging was performed through the veins of the right and left upper extremity using venous compression and other maneuvers. COMPARISON: Bilateral upper extremity venous Doppler exam to 04/17/2020 FINDINGS: Right Internal Jugular vein: Large, acute, noncompressible thrombus in the right IJ, nonocclusive. Right Subclavian vein: Negative. Right Axillary vein: Negative. Right Brachial vein: Negative. Right radial and ulnar veins: Negative. Right Basilic vein (superficial): Negative. Right basilic vein (superficial): Occluded by noncompressible thrombus. Left Internal Jugular vein: Nearly occlusive acute thrombus is present. Left Subclavian vein: Negative. Left Axillary vein: Negative. Left Brachial vein: Negative. Left radial and cephalic veins: Negative radial vein. There is noncompressible thrombus in the cephalic vein at the proximal forearm with absence of color-flow. Left Basilic vein (superficial): Negative. Additional findings: None. IMPRESSION: 1. Bilateral acute internal jugular vein DVTs. The patient's nurse, Keegan, was informed by the armature winder repair helper at the time of the examination. 2. Superficial thromboses of both cephalic veins. Signer Name: Kaia Gonzales MD Signed: 01/10/2020 4:44 PM Workstation Name: [id number] Transcribed By: GREGORIO Dictated By: Kaia Gonzales MD Electronically Authenticated By: Kaia Gonzales MD Signed Date/Time: 01/10/20 0613 FINDINGS: There is chronic thrombus in the left internal jugular vein. [place] park bclavian, axillary, brachial, basilic, radial, and ulnar veins are patent without thrombus. There is also superficial thrombus in the cephalic vein and AV fistula in the upper forearm region. IMPRESSION: 1. 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 2. Superficial thrombus in the cephalic vein and in the AV fistula. Findings were called to the patient's nurse Humera at 10:53 AM Eastern standard time today. Critical care attestation.: If time is entered above; I have spent that time in minutes in the direct care of this critically ill patient, excluding procedure time. ED Disposition Clinical Impression: Noncompliance with medication regimen, Missed dialysis, ESRD (end stage renal disease), Noncompliance with renal dialysis HTN (hypertension) Qualifiers: Hypertension type: unspecified Qualified Code(s): I10 - Essential (primary) hypertension Trapezius strain Qualifiers: Encounter type: initial encounter Laterality: right Qualified Code(s): S46.811A - Strain of other muscles, fascia and tendons at shoulder and upper arm level, right arm, initial encounter Disposition: DC-01 TO HOME OR SELFCARE Is pt being admited?: No Does the pt Need Aspirin: No Condition: Stable Additional Instructions: Please continue current outpatient medications. Please continue outpatient hemodialysis as scheduled. As per review of patient's prior chart, he is supposed to go to the following hemodialysis center: [facility] in [place], [place] Address: [address] [place] [address] Opens 6AM It is very important that the patient attends hemodialysis as scheduled. Not attending hemodialysis will result in patient missing antibiotic doses which are required to treat infection, and also to prevent life-threatening levels of high potassium. Noncompliance with hemodialysis may result in , disability, paralysis, loss of quality of life. Not taking outpatient prescribed medications may result in , paralysis, loss of quality of life or disability. Please follow-up with your outpatient primary care doctor or wind turbine mechanical engineer within the next 5 days. Please follow-up with your infectious disease doctor within the next 7 days. For right shoulder pain/right neck pain, rest, avoid heavy lifting, avoid strenuous physical activities, patient may apply ice packs and heating packs in an alternating fashion, and he may take [id number] Tylenol as needed for pain. Please return to the emergency room right away with new pain, worsening pain, migration of pain, projectile vomiting, change in mental status, confusion, inability to tolerate liquid feeds, new, worsened or different symptoms not present on the initial emergency room evaluation. For the patient's convenience, he was provided with a good Rx affordable prescription card, Which he may use to obtain affordable prescriptions. The patient may have to compare in contrast prices at various pharmacies in order to find the best carvajal for his prescriptions. Cultures were sent today, and results will be available in the next 5 to 7 days. Please have your primary care doctor, wind turbine mechanical engineer, or infectious disease doctor contact the medical records department to obtain culture results Prescriptions: Pravastatin [Pravachol] 20 mg PO QHS #30 tablet amLODIPine 10 mg PO QDAY #30 tablet Aspirin [Aspirin BABY CHEW TAB] 81 mg PO QDAY #30 tab.chew carvediloL [Coreg] 25 mg PO BID #60 tablet Apixaban [Eliquis] 5 mg PO BID #60 tablet Folic Acid [Folvite] 1 mg PO QDAY #30 tablet Isosorbide Dinitrate [Isordil] 10 mg PO BID #60 tablet levETIRAcetam [Keppra TAB] 750 mg PO BID #60 tablet Furosemide [Lasix TAB] 40 mg PO QDAY #30 tablet NIFEdipine XL [Procardia Xl] 60 mg PO QDAY #30 tablet Thiamine [Vitamin B-1] 100 mg PO QDAY #30 tablet Referrals: CAITIE VICTORIA MD [Staff Physician] - 3-5 Days ARVIND VELIZ MD [Staff Physician] - 7-10 days
[2020-01-25 04:46] LABS: Basophils # (Auto) 0.1 K/mm3 (0.0-0.1); Basophils % (Auto) 2.9 % (0.0-1.8); Eosinophils % (Auto) 1.2 % (0.0-4.3); Hematocrit 22.7 % (35.5-45.6); Hemoglobin 7.5 gm/dl (11.8-15.2); Lymphocytes # (Auto) 0.7 K/mm3 (1.2-5.4); Lymphocytes % (Auto) 17.5 % (13.4-35.0); Mean Corpuscular HGB Conc 33 % (32-34); Mean Corpuscular Volume 95 fl (84-94); Monocytes # (Auto) 0.3 K/mm3 (0.0-0.8); Platelet Count 338 K/mm3 (140-440); Red Blood Count 2.39 M/mm3 (3.65-5.03); Red Cell Distribution Width 14.9 % (13.2-15.2)
[2020-01-25] MEDS ORDERED: FUROSEMIDE 20 MG TAB ONE (04:54)
[2020-01-25] MEDS ORDERED: ASPIRIN 81 MG TAB CHEW ONE (04:54)
[2020-01-25] MEDS ORDERED: amLODIPine 10 MG TAB ONE (04:54)
[2020-01-25] MEDS ORDERED: carvediloL 25 MG TAB ONE (04:55)
[2020-01-25] MEDS ORDERED: APIXABAN 5 MG TAB ONE (04:55)
[2020-01-25 04:58] LABS: INR 1.14 (0.87-1.13)
[2020-01-25 04:59] LABS: Partial Thromboplastin Time 32.8 Sec. (24.2-36.6)
[2020-01-25 05:00] LABS: Albumin 2.9 g/dL (3.9-5); BUN/Creatinine Ratio 6; Blood Urea Nitrogen 80 mg/dL (9-20); Calcium 7.6 mg/dL (8.4-10.2); Hemolysis Index 0
[2020-01-25 05:02] LABS: Alanine Aminotransferase < 5 units/L (7-56)
--- NOTE | 2020-01-25 05:09 | XRay Report ---
CHEST 1 VIEW 0426 INDICATION / CLINICAL INFORMATION: htn shoulder pain, trapezius pain. COMPARISON: 01/08/2020 FINDINGS: SUPPORT DEVICES: Previous left-sided central line has been replaced by a right subclavian multilumen catheter with tips in the area of the atrial caval junction. HEART / MEDIASTINUM: No significant abnormality. LUNGS / PLEURA: No significant pulmonary or pleural abnormality. No pneumothorax. ADDITIONAL FINDINGS: No significant additional findings. IMPRESSION: No significant acute abnormality Signer Name: Benito Spicer MD Signed: 01/25/2020 5:04 AM Workstation Name: [employer]
[2020-01-25] MEDS: ceFAZolin/STERILE WATER 2 GM/20 ML SYRINGE IV STA (05:14)
[2020-01-25] MEDS: ACETAMINOPHEN 500 MG TAB PO ONE (05:14)
[2020-01-25] MEDS: ASPIRIN 81 MG TAB CHEW PO SCH (05:16)
[2020-01-25] MEDS: APIXABAN 5 MG TAB PO SCH (05:16)
[2020-01-25] MEDS: carvediloL 25 MG TAB PO SCH (05:16)
[2020-01-25] MEDS: amLODIPine 10 MG TAB PO SCH (05:16)
[2020-01-25] MEDS: ISOSORBIDE DINITRATE 10 MG TAB PO SCH (05:17)
[2020-01-25] MEDS: NIFEdipine XL 60 MG TAB PO SCH (05:17)
[2020-01-25] MEDS: FUROSEMIDE 40 MG TAB PO SCH (05:17)
[2020-01-25 05:18] VITALS: BP 189/114
[2020-01-25] MEDS ORDERED: CALCIUM ACETATE 667 MG CAP PO SCH (08:00)
[2020-01-25] MEDS ORDERED: THIAMINE 100 MG TAB PO SCH (10:00)
[2020-01-25] MEDS ORDERED: FOLIC ACID 1 MG TAB PO SCH (10:00)
[2020-01-25] MEDS ORDERED: levETIRAcetam 500 MG/5 ML ORAL LIQD PO SCH (10:00)
[2020-01-25] MEDS ORDERED: NON-FORMULARY EACH (Levetiracetam [Keppra Tab] 750 MG) PO SCH (10:00)
[2020-01-25] MEDS ORDERED: PRAVASTATIN 20 MG TAB PO SCH (22:00)
[2020-01-25] MEDS ORDERED: NON-FORMULARY EACH (Famotidine [Pepcid] 40 MG) PO SCH (22:00)
[2020-01-25] MEDS ORDERED: FAMOTIDINE 20 MG TAB PO SCH (22:00)
== END 2020-01-25 05:50 | disposition home or self-care (01) ==
LOC: ED 04:00
DX: S46.811A Strain of other muscles, fascia and tendons at shoulder and upper arm level, right arm, initial encounter (principal); I13.2 Hypertensive heart and chronic kidney disease with heart failure and with stage 5 chronic kidney disease, or end stage renal disease; N18.6 End stage renal disease; I50.9 Heart failure, unspecified; E78.00 Pure hypercholesterolemia, unspecified; F17.200 Nicotine dependence, unspecified, uncomplicated; F14.90 Cocaine use, unspecified, uncomplicated; M17.0 Bilateral primary osteoarthritis of knee; J44.9 Chronic obstructive pulmonary disease, unspecified; Z98.890 Other specified postprocedural states; Z79.899 Other long term (current) drug therapy; Z88.8 Allergy status to other drugs, medicaments and biological substances; Z91.15 Patient's noncompliance with renal dialysis; Z86.69 Personal history of other diseases of the nervous system and sense organs; Z91.14 Patient's other noncompliance with medication regimen; X58.XXXA Exposure to other specified factors, initial encounter; Y93.89 Activity, other specified; Y92.89 Other specified places as the place of occurrence of the external cause; Y99.8 Other external cause status
CPT/HCPCS: 36415; 71045; 80053; 82140; 82550; 83735; 85025; 85610; 85730; 87040; 93005; 96374; 99285; J0690

== ENCOUNTER 2020-01-31 09:50 | Inpatient (IN) | payer OTHER ==
[2020-01-31] MEDS ORDERED: traMADol 50 MG TAB PO ONE (10:30)
[2020-01-31] MEDS ORDERED: cloNIDine 0.2 MG TAB PO ONE (10:34)
--- NOTE | 2020-01-31 10:35 | Emergency Department Report ---
HPI - General Chief Complaint: Pain General Time Seen by Provider: 01/31/20 10:21 - HPI HPI: Room 24 The patient is a 59-year-old male present with a chief complaint of left hand swelling and itching all over. The patient states he has had pressure on both of his shoulders and neck for the past 2 weeks. Patient states he is also has swelling of his left hand and itching all over his body which prompted him to come to the emergency department. The patient has a history of end-stage renal disease but states he has not gone to dialysis in the past 2 weeks. 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 ED Past Medical Hx - Past Medical History Previous Medical History?: Yes Hx Hypertension: Yes Hx Heart Attack/AMI: (CHF, EF 25-30%) Hx Renal Disease: Yes (On Dialysis) Hx Arthritis: Yes (knees) Hx Seizures: Yes (non-compliant with meds) Hx COPD: Yes Additional medical history: non compliant with HD - Surgical History Past Surgical History?: Yes Additional Surgical History: rt chest permacath - Family History Family history: no significant - Social History Smoking Status: Current Every Day Smoker (1 pack/day) Substance Use Type: Cocaine (Crack), Marijuana - Medications Home Medications: Home Medications Medication Instructions Recorded Confirmed Last Taken Type Epoetin Leandro 10,000 Unit [Procrit] 10,000 unit SUB-Q EDIE vial 09/01/19 01/09/20 01/02/20 Rx Epoetin Leandro 10,000 Unit [Procrit] 10,000 unit SUB-Q EDIE vial 09/19/19 01/09/20 01/02/20 Rx Famotidine [Pepcid] 40 mg PO QHS #30 tablet 12/05/19 01/09/20 Unknown Rx Apixaban [Eliquis starter pack] 5 mg PO BID #1 tab.ds.pk 12/21/19 01/09/20 01/09/20 11:49 Rx Acetaminophen [Acetaminophen TAB] 325 mg PO Q4H PRN #30 tablet 12/22/19 01/09/20 01/09/20 11:49 Rx Furosemide [Lasix TAB] 40 mg PO QDAY #30 tablet 12/22/19 01/09/20 Unknown Rx NIFEdipine XL [Procardia Xl] 60 mg PO QDAY #30 tablet 12/22/19 01/09/20 Unknown Rx Ondansetron [Zofran ODT TAB] 4 mg PO Q8HR #10 tab.rapdis 12/22/19 01/09/2001/08 11:47 Rx Isosorbide Dinitrate [Isordil] 10 mg PO BID tablet 01/09/20 Unknown Rx oxyCODONE /ACETAMINOPHEN [Percocet 1 tab PO Q6H PRN tablet 01/09/20 Unknown Rx 5/325 mg] Apixaban [Eliquis] 5 mg PO Q12HR #60 tablet 01/18/20 Unknown Rx Calcium Acetate [Phoslo] 1,334 mg PO TIDWM #90 capsule 01/18/20 Unknown Rx Apixaban [Eliquis] 5 mg PO BID #60 tablet 01/25/20 Unknown Rx Aspirin [Aspirin BABY CHEW TAB] 81 mg PO QDAY #30 tab.chew 01/25/20 Unknown Rx Folic Acid [Folvite] 1 mg PO QDAY #30 tablet 01/25/20 Unknown Rx Furosemide [Lasix TAB] 40 mg PO QDAY #30 tablet 01/25/20 Unknown Rx Isosorbide Dinitrate [Isordil] 10 mg PO BID #60 tablet 01/25/20 Unknown Rx NIFEdipine XL [Procardia Xl] 60 mg PO QDAY #30 tablet 01/25/20 Unknown Rx Pravastatin [Pravachol] 20 mg PO QHS #30 tablet 01/25/20 Unknown Rx Thiamine [Vitamin B-1] 100 mg PO QDAY #30 tablet 01/25/20 Unknown Rx amLODIPine 10 mg PO QDAY #30 tablet 01/25/20 Unknown Rx carvediloL [Coreg] 25 mg PO BID #60 tablet 01/25/20 Unknown Rx levETIRAcetam [Keppra TAB] 750 mg PO BID #60 tablet 01/25/20 Unknown Rx ED Review of Systems ROS: Stated complaint: DIFFICULTY BREATHING Other details as noted in HPI Constitutional: no symptoms reported Eyes: denies: eye pain ENT: denies: throat pain Respiratory: denies: shortness of breath Cardiovascular: denies: chest pain Endocrine: no symptoms reported Gastrointestinal: denies: abdominal pain Genitourinary: denies: testicular pain Musculoskeletal: denies: back pain Neurological: denies: headache Physical Exam - Physical Exam Vital Signs: Vital Signs 01/31/20 10:00 Temperature 98.2 F Pulse Rate 98 H Respiratory 18 Rate Blood Pressure 226/145 O2 Sat by Pulse 98 Oximetry Physical Exam: GENERAL: The patient is well-developed well-nourished male lying on stretcher not appearing to be in acute distress. [] HEENT: Normocephalic. Atraumatic. Extraocular motions are intact. Patient has moist mucous membranes. NECK: Supple. Trachea midline CHEST/LUNGS: Clear to auscultation. There is no respiratory distress noted. HEART/CARDIOVASCULAR: Regular. There is no tachycardia. There is no gallop rub or murmur. ABDOMEN: Abdomen is soft, nontender. Patient has normal bowel sounds. There is no abdominal distention. SKIN: There is no rash. There is no edema. There is no diaphoresis. NEURO: The patient is awake, alert, and oriented. The patient is cooperative. The patient has no focal neurologic deficits. The patient has normal speech MUSCULOSKELETAL: There is no evidence of acute injury. ED Course Vital Signs 01/31/20 10:00 Temperature 98.2 F Pulse Rate 98 H Respiratory 18 Rate Blood Pressure 226/145 O2 Sat by Pulse 98 Oximetry - Consultations Consultation #1: 01/31/20 11:20 Nephrology paged-Case discussed with Merlene. States Dr. Ravi will dialyze patient, have hospitalist admit ED Medical Decision Making - Lab Data Result diagrams: 01/31/20 10:32 01/31/20 10:32 Lab Results 01/31/20 01/31/20 01/31/20 Range/Units 10:32 10:32 10:32 WBC 5.7 (4.5-11.0) K/mm3 RBC 2.39 L (3.65-5.03) M/mm3 Hgb 7.3 L (11.8-15.2) gm/dl Hct 22.2 L (35.5-45.6) % MCV 93 (84-94) fl MCH 31 (28-32) pg MCHC 33 (32-34) % RDW 14.5 (13.2-15.2) % Plt Count 266 (140-440) K/mm3 Lymph % (Auto) 12.8 L (13.4-35.0) % [place] % (Auto) 7.7 H (0.0-7.3) % Eos % (Auto) 4.2 (0.0-4.3) % Baso % (Auto) 0.4 (0.0-1.8) % Lymph # 0.7 L (1.2-5.4) K/mm3 [place] # 0.4 (0.0-0.8) K/mm3 Eos # 0.2 (0.0-0.4) K/mm3 Baso # 0.0 (0.0-0.1) K/mm3 Seg Neutrophils % 74.9 H (40.0-70.0) % Seg Neutrophils # 4.2 (1.8-7.7) K/mm3 PT 14.5 (12.2-14.9) Sec. INR 1.12 (0.87-1.13) APTT 30.8 (24.2-36.6) Sec. Sodium 137 (137-145) mmol/L Potassium 4.4 (3.6-5.0) mmol/L Chloride 102.0 (98-107) mmol/L Carbon Dioxide 15 L (22-30) mmol/L Anion Gap 24 mmol/L BUN 96 H (9-20) mg/dL Creatinine 14.1 H (0.8-1.5) mg/dL Estimated GFR 4 ml/min BUN/Creatinine Ratio 7 % Glucose 89 (75-100) mg/dL Calcium 7.5 L (8.4-10.2) mg/dL Total Creatine Kinase (55-170) units/L CK-MB (CK-2) (0.0-4.0) ng/mL CK-MB (CK-2) Rel Index (0-4) Troponin T (0.00-0.029) ng/mL 01/31/20 Range/Units 10:41 WBC (4.5-11.0) K/mm3 RBC (3.65-5.03) M/mm3 Hgb (11.8-15.2) gm/dl Hct (35.5-45.6) % MCV (84-94) fl MCH (28-32) pg MCHC (32-34) % RDW (13.2-15.2) % Plt Count (140-440) K/mm3 Lymph % (Auto) (13.4-35.0) % [place] % (Auto) (0.0-7.3) % Eos % (Auto) (0.0-4.3) % Baso % (Auto) (0.0-1.8) % Lymph # (1.2-5.4) K/mm3 [place] # (0.0-0.8) K/mm3 Eos # (0.0-0.4) K/mm3 Baso # (0.0-0.1) K/mm3 Seg Neutrophils % (40.0-70.0) % Seg Neutrophils # (1.8-7.7) K/mm3 PT (12.2-14.9) Sec. INR (0.87-1.13) APTT (24.2-36.6) Sec. Sodium (137-145) mmol/L Potassium (3.6-5.0) mmol/L Chloride (98-107) mmol/L Carbon Dioxide (22-30) mmol/L Anion Gap mmol/L BUN (9-20) mg/dL Creatinine (0.8-1.5) mg/dL Estimated GFR ml/min BUN/Creatinine Ratio % Glucose (75-100) mg/dL Calcium (8.4-10.2) mg/dL Total Creatine Kinase 133 (55-170) units/L CK-MB (CK-2) 3.0 (0.0-4.0) ng/mL CK-MB (CK-2) Rel Index 2.2 (0-4) Troponin T 0.036 H (0.00-0.029) ng/mL - EKG Data -: EKG Interpreted by Me EKG shows normal: sinus rhythm Rate: normal - EKG Data When compared to previous EKG there are: previous EKG unavailable Interpretation: nonspecific ST-T wave amparo (T wave inversions in leads V5, V6) - Differential Diagnosis ESRD Critical care attestation.: If time is entered above; I have spent that time in minutes in the direct care of this critically ill patient, excluding procedure time. ED Disposition Clinical Impression: End stage renal disease, Uremia Disposition: OP ADMIT IP TO THIS HOSP Is pt being admited?: Yes Does the pt Need Aspirin: No Condition: Fair Referrals: PRIMARY CARE, [Primary Care Provider] - 3-5 Days Time of Disposition: 12:20 (Hospitalist paged (Dr. Santo))
[2020-01-31 11:06] LABS: Basophils % (Auto) 0.4 % (0.0-1.8); Eosinophils # (Auto) 0.2 K/mm3 (0.0-0.4); Eosinophils % (Auto) 4.2 % (0.0-4.3); Hematocrit 22.2 % (35.5-45.6); Hemoglobin 7.3 gm/dl (11.8-15.2); Lymphocytes # (Auto) 0.7 K/mm3 (1.2-5.4); Lymphocytes % (Auto) 12.8 % (13.4-35.0); Mean Corpuscular HGB Conc 33 % (32-34); Mean Corpuscular Volume 93 fl (84-94); Monocytes # (Auto) 0.4 K/mm3 (0.0-0.8); Monocytes % (Auto) 7.7 % (0.0-7.3); Platelet Count 266 K/mm3 (140-440); Red Blood Count 2.39 M/mm3 (3.65-5.03); Red Cell Distribution Width 14.5 % (13.2-15.2)
[2020-01-31 11:09] LABS: INR 1.12 (0.87-1.13)
[2020-01-31 11:10] LABS: Partial Thromboplastin Time 30.8 Sec. (24.2-36.6)
[2020-01-31 11:15] LABS: Calcium 7.5 mg/dL (8.4-10.2)
[2020-01-31 11:36] LABS: Free T4 (Free Thyroxine) 0.8 ng/dL (0.76-1.46)
[2020-01-31 12:02] LABS: Chol/HDL Ratio 1.92 %
--- NOTE | 2020-01-31 12:28 | Consultation ---
History of Present Illness - History of Present Illness End-stage renal disease patient is currently in maintenance of dialysis he cur rently does not have a dedicated dialysis clinic hemodialysis will be ordered, Uncontrolled hypertension? Compliance will need to place him back on his blood pressure medication hemodialysis today Bone mineral disorder and secondary hyperparathyroidism: Check phosphorus and PTH level periodically I will follow up on the blood pressure if it remains elevated patient will need to be in hydralazine 50 mg 3 times a day, Procardia 30 mg twice a day and losartan 50 mg once a day Patient is homeless and does not have a designated clinic, History of MSSA bacteremia complicated by DVT, transthoracic echocardiogram was unremarkable Patient also has had infected HD catheter which was removed and replaced on January 17, 2020, patient likely will require follow-up with antibiotic as well as possibly cultures Compliance is doubtful here, history of substance abuse, we will keep him on Ancef 2 g after every dialysis, till February 24, 2020 Need manager social as well as strategic planner evaluation I will continue to follow and make recommendation from renal standpoint Medications and Allergies Allergies Allergy/AdvReac Type Severity Reaction Status Date / Time heparin AdvReac Anaphylaxis Verified 01/31/20 10:23 Home Medications Medication Instructions Recorded Confirmed Last Taken Type Epoetin Leandro 10,000 Unit [Procrit] 10,000 unit SUB-Q EDIE vial 09/01/19 01/09/20 01/02/20 Rx Epoetin Leandro 10,000 Unit [Procrit] 10,000 unit SUB-Q EDIE vial 09/19/19 01/09/20 01/02/20 Rx Famotidine [Pepcid] 40 mg PO QHS #30 tablet 12/05/19 01/09/20 Unknown Rx Apixaban [Eliquis starter pack] 5 mg PO BID #1 tab.ds.pk 12/21/19 01/09/20 01/09/20 11:49 Rx Acetaminophen [Acetaminophen TAB] 325 mg PO Q4H PRN #30 tablet 12/22/19 01/09/20 01/09/20 11:49 Rx Furosemide [Lasix TAB] 40 mg PO QDAY #30 tablet 12/22/19 01/09/20 Unknown Rx NIFEdipine XL [Procardia Xl] 60 mg PO QDAY #30 tablet 12/22/19 01/09/20 Unknown Rx Ondansetron [Zofran ODT TAB] 4 mg PO Q8HR #10 tab.rapdis 12/22/19 01/09/20 01/09/20 11:47 Rx Isosorbide Dinitrate [Isordil] 10 mg PO BID tablet 01/09/20 Unknown Rx oxyCODONE /ACETAMINOPHEN [Percocet 1 tab PO Q6H PRN tablet 01/09/20 Unknown Rx 5/325 mg] Apixaban [Eliquis] 5 mg PO Q12HR #60 tablet 01/18/20 Unknown Rx Calcium Acetate [Phoslo] 1,334 mg PO TIDWM #90 capsule 01/18/20 Unknown Rx Apixaban [Eliquis] 5 mg PO BID #60 tablet 01/25/20 Unknown Rx Aspirin [Aspirin BABY CHEW TAB] 81 mg PO QDAY #30 tab.chew 01/25/20 Unknown Rx Folic Acid [Folvite] 1 mg PO QDAY #30 tablet 01/25/20 Unknown Rx Furosemide [Lasix TAB] 40 mg PO QDAY #30 tablet 01/25/20 Unknown Rx Isosorbide Dinitrate [Isordil] 10 mg PO BID #60 tablet 01/25/20 Unknown Rx NIFEdipine XL [Procardia Xl] 60 mg PO QDAY #30 tablet 01/25/20 Unknown Rx Pravastatin [Pravachol] 20 mg PO QHS #30 tablet 01/25/20 Unknown Rx Thiamine [Vitamin B-1] 100 mg PO QDAY #30 tablet 01/25/20 Unknown Rx amLODIPine 10 mg PO QDAY #30 tablet 01/25/20 Unknown Rx carvediloL [Coreg] 25 mg PO BID #60 tablet 01/25/20 Unknown Rx levETIRAcetam [Keppra TAB] 750 mg PO BID #60 tablet 01/25/20 Unknown Rx Exam - Vital Signs Vital signs: Vital Signs Temp Pulse Resp BP Pulse Ox 98.2 F 98 H 18 226/145 98 01/31/20 10:00 01/31/20 10:00 01/31/20 10:00 01/31/20 10:00 01/31/20 10:00 Results - Lab Results 01/31/20 10:32 02/01/20 05:33 Most recent lab results Calcium 7.5 mg/dL (8.4-10.2) L 01/31/20 10:32
--- NOTE | 2020-01-31 12:42 | History and Physical Report ---
History of Present Illness Chief complaint: I am swollen and I am itching all over and I need dialysis History of present illness: 59 YO Male with HTN, HLD, Seizure Disorder, Medication Noncompliance, OA , Nicotine Dependence, Cocaine Dependence, Systolic CHF(EF 25%), ESRD on HD with last dialysis session conducted 2 weeks ago presents to ED for evaluation. The patient states that he has experienced generalized weakness, edema and itching all over his body over the past 2 weeks with progressively worsening symptoms over the same timeframe. EMS notified and upon arrival the patient was found to be in distress and subsequently transported to [facility] for further evaluation and care. Patient seen and evaluated in the emergency department. Lab and imaging studies reviewed. Patient reports noncompliant with outpatient dialysis for the past 2 weeks. Patient found to have end-stage renal disease in need of dialy sis, metabolic acidosis, and malignant hypertension with blood pressure of 226/145. Patient admitted to medical floor and treated with antihypertensive therapy, and supportive care due to increased risk of cardiorenal decompensation. Nephrology team consulted in ED for urgent dialysis. Patient denies fever, chills, CP, Palpitations, NVD, Trauma, BRBPR, Productive cough, skin rash, or known ill contacts, or known exposure to COVID-19. Prior admission on 01/08/2020 reviewed. All listed medication reconciled at time of admission. Past History Past Medical History: ESRD, hyperthyroidism, hyperlipidemia, other (See HPI) Past Surgical History: Other (Dialysis access) Social history: , smoking. denies: alcohol abuse, prescription drug abuse Family history: hypertension Medications and Allergies Allergies Allergy/AdvReac Type Severity Reaction Status Date / Time heparin AdvReac Anaphylaxis Verified 01/31/20 10:23 Home Medications Medication Instructions Recorded Confirmed Last Taken Type Epoetin Leandro 10,000 Unit [Procrit] 10,000 unit SUB-Q EDIE vial 09/01/19 01/09/20 01/02/20 Rx Epoetin Leandro 10,000 Unit [Procrit] 10,000 unit SUB-Q EDIE vial 09/19/19 01/09/20 01/02/20 Rx Famotidine [Pepcid] 40 mg PO QHS #30 tablet 12/05/19 01/09/20 Unknown Rx Apixaban [Eliquis starter pack] 5 mg PO BID #1 tab.ds.pk 12/21/19 01/09/20 01/09/20 11:49 Rx Acetaminophen [Acetaminophen TAB] 325 mg PO Q4H PRN #30 tablet 12/22/19 01/09/20 01/09/20 11:49 Rx Furosemide [Lasix TAB] 40 mg PO QDAY #30 tablet 12/22/19 01/09/20 Unknown Rx NIFEdipine XL [Procardia Xl] 60 mg PO QDAY #30 tablet 12/22/19 01/09/20 Unknown Rx Ondansetron [Zofran ODT TAB] 4 mg PO Q8HR #10 tab.rapdis 12/22/19 01/09/20 01/09/20 11:47 Rx Isosorbide Dinitrate [Isordil] 10 mg PO BID tablet 01/09/20 Unknown Rx oxyCODONE /ACETAMINOPHEN [Percocet 1 tab PO Q6H PRN tablet 01/09/20 Unknown Rx 5/325 mg] Apixaban [Eliquis] 5 mg PO Q12HR #60 tablet 01/18/20 Unknown Rx Calcium Acetate [Phoslo] 1,334 mg PO TIDWM #90 capsule 01/18/20 Unknown Rx Apixaban [Eliquis] 5 mg PO BID #60 tablet 01/25/20 Unknown Rx Aspirin [Aspirin BABY CHEW TAB] 81 mg PO QDAY #30 tab.chew 01/25/20 Unknown Rx Folic Acid [Folvite] 1 mg PO QDAY #30 tablet 01/25/20 Unknown Rx Furosemide [Lasix TAB] 40 mg PO QDAY #30 tablet 01/25/20 Unknown Rx Isosorbide Dinitrate [Isordil] 10 mg PO BID #60 tablet 01/25/20 Unknown Rx NIFEdipine XL [Procardia Xl] 60 mg PO QDAY #30 tablet 01/25/20 Unknown Rx Pravastatin [Pravachol] 20 mg PO QHS #30 tablet 01/25/20 Unknown Rx Thiamine [Vitamin B-1] 100 mg PO QDAY #30 tablet 01/25/20 Unknown Rx amLODIPine 10 mg PO QDAY #30 tablet 01/25/20 Unknown Rx carvediloL [Coreg] 25 mg PO BID #60 tablet 01/25/20 Unknown Rx levETIRAcetam [Keppra TAB] 750 mg PO BID #60 tablet 01/25/20 Unknown Rx Review of Systems Constitutional: weakness, other (Itching), no weight loss, no fever, no chills Ears, nose, mouth and throat: no ear pain, no ear discharge, no tinnitis, no decreased hearing, no nasal congestion, no nasal discharge Cardiovascular: edema, no orthopnea, no palpitations, no rapid/irregular heart beat Respiratory: no cough, no cough with sputum, no excessive sputum, no hemoptysis Gastrointestinal: no abdominal pain, no nausea, no vomiting, no diarrhea Genitourinary Male: no hematuria, no flank pain, no discharge, no urinary frequency, no urinary hesitancy Rectal: no pain, no incontinence, no bleeding Musculoskeletal: no neck stiffness, no neck pain, no shooting arm pain, no arm numbness/tingling, no low back pain, no shooting leg pain Integumentary: no rash, no pruritis, no redness, no sores, no wounds Neurological: no transient paralysis, no paralysis, no weakness, no parathesias, no numbness, no tingling, no tremors Psychiatric: no anxiety, no memory loss, no change in sleep habits, no insomnia, no change in appetite, no change in libido Endocrine: no cold intolerance, no polyphagia, no excessive thirst, no polyuria, no nocturia Hematologic/Lymphatic: no easy bruising, no easy bleeding Allergic/Immunologic: urticaria, no wheezing Exam - Constitutional Vitals: Temp Pulse Resp BP Pulse Ox 98.2 F 86 18 218/145 98 01/31/20 10:00 01/31/20 10:58 01/31/20 11:11 01/31/20 10:58 01/31/20 10:00 General appearance: Present: mild distress - EENT Eyes: Present: PERRL ENT: hearing intact, clear oral mucosa - Neck Neck: Present: supple, normal ROM - Respiratory Respiratory effort: normal Respiratory: bilateral: CTA - Cardiovascular Heart Sounds: Present: S1 & S2. Absent: rub, click - Extremities Extremities: pulses symmetrical, No edema Peripheral Pulses: within normal limits - Abdominal General gastrointestinal: Present: soft, non-tender, non-distended, normal bowel sounds Male genitourinary: Present: normal - Integumentary Integumentary: Present: clear, warm, dry - Musculoskeletal Musculoskeletal: gait normal, strength equal bilaterally - Psychiatric Psychiatric: appropriate mood/affect, intact judgment & insight - Neurologic Neurologic: CNII-XII intact, moves all extremities Results - Labs CBC & Chem 7: 01/31/20 10:32 01/31/20 10:32 Labs: Abnormal lab results 01/31/20 01/31/20 01/31/20 Range/Units 10:32 10:32 10:41 RBC 2.39 L (3.65-5.03) M/mm3 Hgb 7.3 L (11.8-15.2) gm/dl Hct 22.2 L (35.5-45.6) % Lymph % (Auto) 12.8 L (13.4-35.0) % [place] % (Auto) 7.7 H (0.0-7.3) % Lymph # 0.7 L (1.2-5.4) K/mm3 Seg Neutrophils % 74.9 H (40.0-70.0) % Carbon Dioxide 15 L (22-30) mmol/L BUN 96 H (9-20) mg/dL Creatinine 14.1 H (0.8-1.5) mg/dL Calcium 7.5 L (8.4-10.2) mg/dL Troponin T 0.036 H (0.00-0.029) ng/mL LDL Cholesterol Direct 41 L (50-130) mg/dL Assessment and Plan - Patient Problems (1) End stage renal disease Current Visit: Yes Status: Acute Plan to address problem: Nephrology consulted in ED, strict I's/O, monitor urine output every shift, daily weight, dialysis as per renal team, avoid nephrotoxic agents. (2) Acute on chronic systolic (congestive) heart failure Current Visit: No Status: Chronic Plan to address problem: Strict I's/O, daily weight, blood pressure control, monitor urine output every shift, submental oxygen, BNP, monitor fluid balance to ensure negative fluid balance, afterload reduction. (3) Malignant hypertension Current Visit: Yes Status: Acute Plan to address problem: Monitor blood pressure every shift, supportive care, IV hydralazine PRN, urgent dialysis. (4) Uremia Current Visit: Yes Status: Acute Plan to address problem: Nephrology consulted in ED, dialysis as per renal team, topical antihistamine, supportive care (5) Seizure disorder Current Visit: No Status: Chronic Plan to address problem: Seizure precautions, continue Keppra, supportive care. (6) DVT prophylaxis Current Visit: Yes Status: Acute Plan to address problem: SCD to bilateral lower extremities while in bed, patient is ambulatory
[2020-01-31] MEDS ORDERED: ONDANSETRON 4 MG/2 ML INJ IV PRN (12:43)
[2020-01-31] MEDS ORDERED: SODIUM CHLORIDE 0.9% 100 ML IV PRN (13:05)
[2020-01-31] MEDS ORDERED: hydrALAZINE 20 MG/1 ML INJ IV ONE (14:00)
[2020-01-31] MEDS ORDERED: hydrALAZINE 20 MG/1 ML INJ ONE (14:05)
[2020-01-31] MEDS ORDERED: SODIUM CHLORIDE*PRIMING MACHINE ONLY FOR DIALYSIS MC ONE (16:01)
[2020-01-31] MEDS: ACETAMINOPHEN 325 MG TAB PO PRN (17:27)
[2020-01-31] MEDS: hydrALAZINE 25 MG TAB PO SCH (21:58)
[2020-01-31] MEDS: NIFEdipine XL 30 MG TAB PO SCH (21:58)
[2020-01-31] MEDS: LOSARTAN 50 MG TAB PO SCH (21:58)
[2020-01-31] MEDS: hydrALAZINE 20 MG/1 ML INJ IV PRN (23:22)
[2020-02-01] MEDS: ACETAMINOPHEN 325 MG TAB PO PRN ×4 (01:44→20:04)
[2020-02-01] MEDS ORDERED: diphenhydrAMINE 50 MG/ML VIAL ONE (01:44)
[2020-02-01] MEDS: hydrALAZINE 25 MG TAB PO SCH ×3 (05:45→22:43)
[2020-02-01 06:15] LABS: Calcium 7.5 mg/dL (8.4-10.2)
[2020-02-01] MEDS: diphenhydrAMINE 50 MG/ML VIAL IV PRN ×3 (07:35→20:05)
[2020-02-01] MEDS: NIFEdipine XL 30 MG TAB PO SCH ×2 (10:13→22:43)
[2020-02-01] MEDS: LOSARTAN 50 MG TAB PO SCH (10:13)
--- NOTE | 2020-02-01 10:35 | Progress Note ---
Subjective Interval history: Patient was seen today for follow-up of multiple renal related issues No complaints of any chest pain pressure or shortness of breath has had hemodialysis yesterday Patient does not have a dialysis center He has been homeless Interdisciplinary notes that also reviewed Events of 24 hours vitals labs intake output medications were reviewed Past medical history: Reviewed Family history: Reviewed Social history: Reviewed Allergies: Reviewed Physical examination: Vitals: Reviewed HEENT: No pallor or icterus oral mucosa moist Neck: Supple no JVD no thyromegaly Chest: Bilateral clear to auscultation anteriorly central venous catheter site unremarkable Heart: Regular rate and rhythm S1-S2 heard no S3-S4 Abdomen: Soft nontender no voluntary guarding rigidity rebound Extremity: Dry skin less than 1+ peripheral edema Psychiatric: No evidence of agitation and aggression noted Dermatology: No petechial rashes Labs and x-rays: Reviewed from today Assessment and plan End-stage renal disease: Patient is currently on maintenance hemodialysis, he is homeless and does not have a dedicated dialysis Center, we will ultrafiltrate him today as an additional treatment and then Friday and Friday MSSA bacteremia he will need ongoing antibiotic therapy till February 24, 2020 Anemia and end-stage renal disease: To monitor and follow Uncontrolled hypertension, blood pressure medication to be adjusted, hemodialy sis to continue, removal of volume should help Goal will be to give him inexpensive medications as much as possible so that he can afford, he will need support from social media specialist as well as sr. merchandise planner Notable chronic health issues patient has been educated Patient was adequately counseled and educated regarding all the renal related issues Laboratory studies, have been explained to the patient All questions were answered and simple [place] We'll continue to follow and make recommendation for renal standpoint Objective - Vital Signs Vital signs: Vital Signs - 12hr 01/31/20 02/01/20 02/01/20 23:16 01:19 03:29 Temperature 98.0 F 99.0 F Pulse Rate 98 H 114 H 89 Respiratory 18 18 Rate Blood Pressure 196/124 168/98 O2 Sat by Pulse 96 95 Oximetry 02/01/20 02/01/20 08:42 10:13 Temperature 98.7 F Pulse Rate 87 78 Respiratory 20 Rate Blood Pressure 144/81 O2 Sat by Pulse 95 Oximetry - Lab 01/31/20 10:32 02/01/20 05:33 Most recent lab results Calcium 7.5 mg/dL (8.4-10.2) L 02/01/20 05:33 Medications & Allergies - Medications Allergies/Adverse Reactions: Allergies heparin Adverse Reaction (Verified 01/31/20 10:23) Anaphylaxis Home Medications: Home Medications Medication Instructions Recorded Confirmed Last Taken Type Epoetin Leandro 10,000 Unit [Procrit] 10,000 unit SUB-Q EDIE vial 09/01/19 01/09/20 01/02/20 Rx Epoetin Leandro 10,000 Unit [Procrit] 10,000 unit SUB-Q EDIE vial 09/19/19 01/09/20 01/02/20 Rx Famotidine [Pepcid] 40 mg PO QHS #30 tablet 12/05/19 01/09/20 Unknown Rx Apixaban [Eliquis starter pack] 5 mg PO BID #1 tab.ds.pk 12/21/19 01/09/20 01/09/20 11:49 Rx Acetaminophen [Acetaminophen TAB] 325 mg PO Q4H PRN #30 tablet 12/22/19 01/09/20 01/09/20 11:49 Rx Furosemide [Lasix TAB] 40 mg PO QDAY #30 tablet 12/22/19 01/09/20 Unknown Rx NIFEdipine XL [Procardia Xl] 60 mg PO QDAY #30 tablet 12/22/19 01/09/20 Unknown Rx Ondansetron [Zofran ODT TAB] 4 mg PO Q8HR #10 tab.rapdis 12/22/19 01/09/20 01/09/20 11:47 Rx Isosorbide Dinitrate [Isordil] 10 mg PO BID tablet 01/09/20 Unknown Rx oxyCODONE /ACETAMINOPHEN [Percocet 1 tab PO Q6H PRN tablet 01/09/20 Unknown Rx 5/325 mg] Apixaban [Eliquis] 5 mg PO Q12HR #60 tablet 01/18/20 Unknown Rx Calcium Acetate [Phoslo] 1,334 mg PO TIDWM #90 capsule 01/18/20 Unknown Rx Apixaban [Eliquis] 5 mg PO BID #60 tablet 01/25/20 Unknown Rx Aspirin [Aspirin BABY CHEW TAB] 81 mg PO QDAY #30 tab.chew 01/25/20 Unknown Rx Folic Acid [Folvite] 1 mg PO QDAY #30 tablet 01/25/20 Unknown Rx Furosemide [Lasix TAB] 40 mg PO QDAY #30 tablet 01/25/20 Unknown Rx Isosorbide Dinitrate [Isordil] 10 mg PO BID #60 tablet 01/25/20 Unknown Rx NIFEdipine XL [Procardia Xl] 60 mg PO QDAY #30 tablet 01/25/20 Unknown Rx Pravastatin [Pravachol] 20 mg PO QHS #30 tablet 01/25/20 Unknown Rx Thiamine [Vitamin B-1] 100 mg PO QDAY #30 tablet 01/25/20 Unknown Rx amLODIPine 10 mg PO QDAY #30 tablet 01/25/20 Unknown Rx carvediloL [Coreg] 25 mg PO BID #60 tablet 01/25/20 Unknown Rx levETIRAcetam [Keppra TAB] 750 mg PO BID #60 tablet 01/25/20 Unknown Rx Active Medications: Generic Name Dose Route Start Last Admin Trade Name Freq PRN Reason Stop Dose Admin Acetaminophen 650 mg 01/31/20 12:43 02/01/20 07:35 Tylenol PO 650 mg Q4H PRN Administration Pain MILD(1-3)/Fever >100.5/TORIBIO Diphenhydramine HCl 25 mg 02/01/20 01:38 02/01/20 07:35 Benadryl IV 25 mg Q6H PRN Administration Itching Hydralazine HCl 20 mg 01/31/20 12:49 01/31/20 23:22 Apresoline IV 20 mg Q6HR PRN Administration Hypertension Hydralazine HCl 50 mg 01/31/20 22:00 02/01/20 05:45 Apresoline PO 50 mg Q8HR WILL Administration Sodium Chloride 100 mls @ 999 mls/hr 01/31/20 13:05 Nacl 0.9% IV EDIE PRN Hypotension Losartan Potassium 50 mg 01/31/20 22:00 02/01/20 10:13 Cozaar PO 50 mg QDAY WILL Administration Nifedipine 30 mg 01/31/20 22:00 02/01/20 10:13 Procardia Xl PO 30 mg Q12HR WILL Administration Ondansetron HCl 4 mg 01/31/20 12:43 01/31/20 17:27 Zofran IV 4 mg Q8H PRN Administration Nausea And Vomiting Sodium Chloride 10 ml 01/31/20 22:00 05/05/20 10:15 Sodium Chloride Flush Syringe 10 Ml IV 10 ml BID WILL Administration Sodium Chloride 10 ml 01/31/20 12:43 Sodium Chloride Flush Syringe 10 Ml IV PRN PRN LINE FLUSH
--- NOTE | 2020-02-01 18:08 | Progress Note ---
Assessment and Plan Assessment and plan: -- End stage renal disease/on HD Current Visit: Yes Status: Acute Patient noncompliant with hemodialysis nephrology evaluation noted , HD per schedule Patient was discharged from different outpatient HD centers due to his noncompliance with HD interactive account manager/social work lecturer assisting with outpatient HD set up -- Acute on chronic systolic (congestive) heart failure Current Visit: No Status: Chronic Input output monitoring, fluid restriction Continue current management --Malignant hypertension Current Visit: Yes Status: Acute Closely monitor blood pressures, adjust medications as needed Strongly advised to comply with medications and diet --Uremia Current Visit: Yes Status: Acute Hemodialysis dialysis as per schedule per renal team, --History of seizure disorder Current Visit: No Status: Chronic Seizure precautions, continue Keppra, supportive care. Do not drive --DVT prophylaxis Current Visit: Yes Status: Acute SCD to bilateral lower extremities while in bed Patient is allergic to Heparin. Monitor closely and adjust management as needed Plan of care reviewed with the patient and his nurse I also discussed with case management History Interval history: Patient seen and examined medical records reviewed Patient is noncompliant with hemodialysis Nephrology evaluation noted HD per schedule Patient feels better no new complaints Vital signs noted Hospitalist Physical - Constitutional Vitals: Temp Pulse Resp BP Pulse Ox 99.0 F 89 20 161/100 96 02/01/20 16:21 02/01/20 16:21 02/01/20 16:21 02/01/20 16:21 02/01/20 16:21 General appearance: Present: no acute distress, well-nourished, other - EENT Eyes: Present: PERRL, EOM intact - Neck Neck: Present: supple, normal ROM - Respiratory Respiratory effort: normal Respiratory: bilateral: diminished, rales, negative: rhonchi, wheezing - Cardiovascular Rhythm: regular Heart Sounds: Present: S1 & S2 - Extremities Extremities: no ischemia, No edema - Abdominal General gastrointestinal: soft, non-tender, non-distended, normal bowel sounds - Integumentary Integumentary: Present: clear, warm - Psychiatric Psychiatric: appropriate mood/affect, agitated - Neurologic Neurologic: CNII-XII intact, moves all extremities Results - Labs CBC & Chem 7: 01/31/20 10:32 02/01/20 05:33 Labs: Laboratory Last Values WBC 5.7 K/mm3 (4.5-11.0) 01/31/20 10:32 RBC 2.39 M/mm3 (3.65-5.03) L 01/31/20 10:32 Hgb 7.3 gm/dl (11.8-15.2) L 01/31/20 10:32 Hct 22.2 % (35.5-45.6) L 01/31/20 10:32 MCV 93 fl (84-94) 01/31/20 10:32 MCH 31 pg (28-32) 01/31/20 10:32 MCHC 33 % (32-34) 01/31/20 10:32 RDW 14.5 % (13.2-15.2) 01/31/20 10:32 Plt Count 266 K/mm3 (140-440) 01/31/20 10:32 Lymph % (Auto) 12.8 % (13.4-35.0) L 01/31/20 10:32 Long % (Auto) 7.7 % (0.0-7.3) H 01/31/20 10:32 Eos % (Auto) 4.2 % (0.0-4.3) 01/31/20 10:32 Baso % (Auto) 0.4 % (0.0-1.8) 01/31/20 10:32 Lymph # 0.7 K/mm3 (1.2-5.4) L 01/31/20 10:32 Long # 0.4 K/mm3 (0.0-0.8) 01/31/20 10:32 Eos # 0.2 K/mm3 (0.0-0.4) 01/31/20 10:32 Baso # 0.0 K/mm3 (0.0-0.1) 01/31/20 10:32 Seg Neutrophils % 74.9 % (40.0-70.0) H 01/31/20 10:32 Seg Neutrophils # 4.2 K/mm3 (1.8-7.7) 01/31/20 10:32 PT 14.5 Sec. (12.2-14.9) 01/31/20 10:32 INR 1.12 (0.87-1.13) 01/31/20 10:32 APTT 30.8 Sec. (24.2-36.6) 01/31/20 10:32 Sodium 134 mmol/L (137-145) L 02/01/20 05:33 Potassium 3.6 mmol/L (3.6-5.0) 02/01/20 05:33 Chloride 94.8 mmol/L (98-107) L 02/01/20 05:33 Carbon Dioxide 25 mmol/L (22-30) D 02/01/20 05:33 Anion Gap 18 mmol/L 02/01/20 05:33 BUN 39 mg/dL (9-20) H 02/01/20 05:33 Creatinine 6.9 mg/dL (0.8-1.5) H D 02/01/20 05:33 Estimated GFR 10 ml/min 02/01/20 05:33 BUN/Creatinine Ratio 6 % 02/01/20 05:33 Glucose 81 mg/dL (75-100) 02/01/20 05:33 Calcium 7.5 mg/dL (8.4-10.2) L 02/01/20 05:33 Total Creatine Kinase 133 units/L (55-170) 01/31/20 10:41 CK-MB (CK-2) 3.0 ng/mL (0.0-4.0) 01/31/20 10:41 CK-MB (CK-2) Rel Index 2.2 (0-4) 01/31/20 10:41 Troponin T 0.036 ng/mL (0.00-0.029) H 01/31/20 10:41 NT-Pro-B Natriuret Pep > 33317 pg/mL (0-900) H 01/31/20 12:51 Triglycerides 109 mg/dL (2-149) 01/31/20 10:41 Cholesterol 102 mg/dL (50-199) 01/31/20 10:41 LDL Cholesterol Direct 41 mg/dL (50-130) L 01/31/20 10:41 HDL Cholesterol 53 mg/dL (40-59) 01/31/20 10:41 Cholesterol/HDL Ratio 1.92 % 01/31/20 10:41 TSH 1.840 mlU/mL (0.270-4.200) 01/31/20 10:32 Free T4 0.80 ng/dL (0.76-1.46) 01/31/20 10:32 White/IV: Voiding Method Toilet IV Catheter Type [Right INT / Saline Lock Forearm] IV Catheter Type [Left INT / Saline Lock Antecubital] Active Medications - Current Medications Current Medications: Generic Name Dose Route Start Last Admin Trade Name Freq PRN Reason Stop Dose Admin Acetaminophen 650 mg 01/31/20 12:43 02/01/20 15:02 Tylenol PO 650 mg Q4H PRN Administration Pain MILD(1-3)/Fever >100.5/TORIBIO Diphenhydramine HCl 25 mg 02/01/20 01:38 02/01/20 14:53 Benadryl IV 25 mg Q6H PRN Administration Itching Hydralazine HCl 20 mg 01/31/20 12:49 01/31/20 23:22 Apresoline IV 20 mg Q6HR PRN Administration Hypertension Hydralazine HCl 50 mg 01/31/20 22:00 02/01/20 14:55 Apresoline PO 50 mg Q8HR WILL Administration Sodium Chloride 100 mls @ 999 mls/hr 01/31/20 13:05 Nacl 0.9% IV EDIE PRN Hypotension Losartan Potassium 50 mg 01/31/20 22:00 02/01/20 10:13 Cozaar PO 50 mg QDAY WILL Administration Nifedipine 30 mg 01/31/20 22:00 02/01/20 10:13 Procardia Xl PO 30 mg Q12HR WILL Administration Ondansetron HCl 4 mg 01/31/20 12:43 01/31/20 17:27 Zofran IV 4 mg Q8H PRN Administration Nausea And Vomiting Sodium Chloride 10 ml 01/31/20 22:00 02/01/20 10:15 Sodium Chloride Flush Syringe 10 Ml IV 10 ml BID WILL Administration Sodium Chloride 10 ml 01/31/20 12:43 Sodium Chloride Flush Syringe 10 Ml IV PRN PRN LINE FLUSH
[2020-02-02 04:36] LABS: Calcium 7.6 mg/dL (8.4-10.2)
--- NOTE | 2020-02-02 08:16 | Progress Note ---
Subjective Interval history: Patient was seen today for follow-up of multiple renal related issues he is currently on hemodialysis Friday and Friday Patient does not have a dialysis center He has been homeless Interdisciplinary notes that also reviewed Events of 24 hours vitals labs intake output medications were reviewed Past medical history: Reviewed Family history: Reviewed Social history: Reviewed Allergies: Reviewed Physical examination: Vitals: Reviewed HEENT: No pallor or icterus oral mucosa moist Neck: Supple no JVD no thyromegaly Chest: Bilateral clear to auscultation anteriorly central venous catheter site unremarkable Heart: Regular rate and rhythm S1-S2 heard no S3-S4 Abdomen: Soft nontender no voluntary guarding rigidity rebound Extremity: Dry skin less than 1+ peripheral edema Psychiatric: No evidence of agitation and aggression noted Dermatology: No petechial rashes Labs and x-rays: Reviewed from today Assessment and plan End-stage renal disease: Patient is currently on maintenance hemodialysis, continue with hemodialysis Friday and Friday MSSA bacteremia he will need ongoing antibiotic therapy till February 24, 2020 Anemia and end-stage renal disease: To monitor and follow Anemia: Hemoglobin is 11.3 in December 2019 currently around 7.3, will need erythropoietin, will order further workup there has been a fluctuating trend as far as hemoglobin is concerned between March 2019 and currently he has been fluctuating anywhere between 11-7.8 Immunofixation was normal in March 2019 Secondary hyperparathyroidism PTH level was 573 in March 2019 Phosphorus level was 9.8 in December 2019 Uncontrolled hypertension, blood pressure medication to be adjusted, hemodialysis to continue, removal of volume should help Goal will be to give him inexpensive medications as much as possible so that he can afford, he will need support from criminal justice social worker as well as account planner multiple chronic health issues patient has been educated Patient was adequately counseled and educated regarding all the renal related issues Laboratory studies, have been explained to the patient All questions were answered and simple [place] We'll continue to follow and make recommendation for renal standpoint Objective - Vital Signs Vital signs: Vital Signs - 12hr 02/01/20 02/01/20 02/02/20 21:27 22:56 03:31 Temperature 98.2 F 98.5 F Pulse Rate 93 H 96 H Respiratory 18 18 Rate Blood Pressure 158/89 172/97 O2 Sat by Pulse 96 92 95 Oximetry - Lab 01/31/20 10:32 02/02/20 03:49 Most recent lab results Calcium 7.6 mg/dL (8.4-10.2) L 02/02/20 03:49 Medications & Allergies - Medications Allergies/Adverse Reactions: Allergies heparin Adverse Reaction (Verified 01/31/20 10:23) Anaphylaxis Home Medications: Home Medications Medication Instructions Recorded Confirmed Last Taken Type Epoetin Leandro 10,000 Unit [Procrit] 10,000 unit SUB-Q EDIE vial 09/01/19 01/09/20 01/02/20 Rx Epoetin Leandro 10,000 Unit [Procrit] 10,000 unit SUB-Q EDIE vial 09/19/19 01/09/20 01/02/20 Rx Famotidine [Pepcid] 40 mg PO QHS #30 tablet 12/05/19 01/09/20 Unknown Rx Apixaban [Eliquis starter pack] 5 mg PO BID #1 tab.ds.pk 12/21/19 01/09/20 01/09/20 11:49 Rx Acetaminophen [Acetaminophen TAB] 325 mg PO Q4H PRN #30 tablet 12/22/19 01/09/20 01/09/20 11:49 Rx Furosemide [Lasix TAB] 40 mg PO QDAY #30 tablet 12/22/19 01/09/20 Unknown Rx NIFEdipine XL [Procardia Xl] 60 mg PO QDAY #30 tablet 12/22/19 01/09/20 Unknown Rx Ondansetron [Zofran ODT TAB] 4 mg PO Q8HR #10 tab.rapdis 12/22/19 01/09/20 01/09/20 11:47 Rx Isosorbide Dinitrate [Isordil] 10 mg PO BID tablet 01/09/20 Unknown Rx oxyCODONE /ACETAMINOPHEN [Percocet 1 tab PO Q6H PRN tablet 01/09/20 Unknown Rx 5/325 mg] Apixaban [Eliquis] 5 mg PO Q12HR #60 tablet 01/18/20 Unknown Rx Calcium Acetate [Phoslo] 1,334 mg PO TIDWM #90 capsule 01/18/20 Unknown Rx Apixaban [Eliquis] 5 mg PO BID #60 tablet 01/25/20 Unknown Rx Aspirin [Aspirin BABY CHEW TAB] 81 mg PO QDAY #30 tab.chew 01/25/20 Unknown Rx Folic Acid [Folvite] 1 mg PO QDAY #30 tablet 01/25/20 Unknown Rx Furosemide [Lasix TAB] 40 mg PO QDAY #30 tablet 01/25/20 Unknown Rx Isosorbide Dinitrate [Isordil] 10 mg PO BID #60 tablet 01/25/20 Unknown Rx NIFEdipine XL [Procardia Xl] 60 mg PO QDAY #30 tablet 01/25/20 Unknown Rx Pravastatin [Pravachol] 20 mg PO QHS #30 tablet 01/25/20 Unknown Rx Thiamine [Vitamin B-1] 100 mg PO QDAY #30 tablet 01/25/20 Unknown Rx amLODIPine 10 mg PO QDAY #30 tablet 01/25/20 Unknown Rx carvediloL [Coreg] 25 mg PO BID #60 tablet 01/25/20 Unknown Rx levETIRAcetam [Keppra TAB] 750 mg PO BID #60 tablet 01/25/20 Unknown Rx Active Medications: Generic Name Dose Route Start Last Admin Trade Name Freq PRN Reason Stop Dose Admin Acetaminophen 650 mg 01/31/20 12:43 02/01/20 20:04 Tylenol PO 650 mg Q4H PRN Administration Pain MILD(1-3)/Fever >100.5/TORIBIO Diphenhydramine HCl 25 mg 02/01/20 01:38 02/01/20 20:05 Benadryl IV 25 mg Q6H PRN Administration Itching Hydralazine HCl 20 mg 01/31/20 12:49 01/31/20 23:22 Apresoline IV 20 mg Q6HR PRN Administration Hypertension Hydralazine HCl 50 mg 01/31/20 22:00 02/01/20 22:43 Apresoline PO 50 mg Q8HR WILL Administration Sodium Chloride 100 mls @ 999 mls/hr 01/31/20 13:05 Nacl 0.9% IV EDIE PRN Hypotension Losartan Potassium 50 mg 01/31/20 22:00 02/01/20 10:13 Cozaar PO 50 mg QDAY WILL Administration Nifedipine 30 mg 01/31/20 22:00 02/01/20 22:43 Procardia Xl PO 30 mg Q12HR WILL Administration Ondansetron HCl 4 mg 01/31/20 12:43 01/31/20 17:27 Zofran IV 4 mg Q8H PRN Administration Nausea And Vomiting Sodium Chloride 10 ml 01/31/20 22:00 02/01/20 22:44 Sodium Chloride Flush Syringe 10 Ml IV 10 ml BID WILL Administration Sodium Chloride 10 ml 01/31/20 12:43 Sodium Chloride Flush Syringe 10 Ml IV PRN PRN LINE FLUSH
[2020-02-02] MEDS: LOSARTAN 50 MG TAB PO SCH (11:12)
[2020-02-02] MEDS: NIFEdipine XL 30 MG TAB PO SCH ×2 (11:12→21:23)
[2020-02-02] MEDS: diphenhydrAMINE 50 MG/ML VIAL IV PRN ×2 (11:13→21:23)
[2020-02-02] MEDS: ACETAMINOPHEN 325 MG TAB PO PRN (11:13)
[2020-02-02] MEDS: hydrALAZINE 25 MG TAB PO SCH ×3 (14:30→22:53)
[2020-02-02 14:38] LABS: % Iron Saturation 34.96 %
--- NOTE | 2020-02-02 15:40 | Progress Note ---
Assessment and Plan Assessment and plan: -- End stage renal disease/on HD Current Visit: Yes Status: Acute Patient noncompliant with hemodialysis nephrology evaluation noted , HD per schedule Patient was discharged from different outpatient HD centers due to his noncompliance with HD information systems security manager/psychiatric social worker supervisor assisting with outpatient HD set up -- Acute on chronic systolic (congestive) heart failure Current Visit: No Status: Chronic Input output monitoring, fluid restriction Continue current management --Malignant hypertension Current Visit: Yes Status: Acute Closely monitor blood pressures, adjust medications as needed Strongly advised to comply with medications and diet --Uremia Current Visit: Yes Status: Acute Hemodialysis dialysis as per schedule per renal team, --History of seizure disorder Current Visit: No Status: Chronic Seizure precautions, continue Keppra, supportive care. Do not drive --DVT prophylaxis Current Visit: Yes Status: Acute SCD to bilateral lower extremities while in bed Patient is allergic to Heparin. Monitor closely and adjust management as needed Plan of care reviewed with the patient and his nurse I also discussed with case management History Interval history: Patient seen and examined at the bedside today Patient complains of some edema upper and lower extremities Probably secondary to fluid overload due to noncompliance with dialysis Denies any chest pain or shortness of breath Vital signs reviewed Hospitalist Physical - Constitutional Vitals: Temp Pulse Resp BP Pulse Ox 99.1 F 90 18 177/102 99 02/02/20 12:20 02/02/20 12:20 02/02/20 12:20 02/02/20 12:20 02/02/20 12:20 General appearance: Present: no acute distress, well-nourished, other - EENT Eyes: Present: PERRL, EOM intact - Neck Neck: Present: supple, normal ROM - Respiratory Respiratory effort: normal Respiratory: bilateral: diminished, rales, negative: rhonchi, wheezing - Cardiovascular Rhythm: regular Heart Sounds: Present: S1 & S2 - Extremities Extremities: no ischemia, abnormal (Mild edema bilateral ankles) Extremity abnormal: edema - Abdominal General gastrointestinal: soft, non-tender, non-distended, normal bowel sounds - Integumentary Integumentary: Present: clear, warm - Psychiatric Psychiatric: appropriate mood/affect, cooperative - Neurologic Neurologic: moves all extremities Results - Labs CBC & Chem 7: 01/31/20 10:32 02/02/20 03:49 Labs: Laboratory Last Values WBC 5.7 K/mm3 (4.5-11.0) 01/31/20 10:32 RBC 2.39 M/mm3 (3.65-5.03) L 01/31/20 10:32 Hgb 7.3 gm/dl (11.8-15.2) L 01/31/20 10:32 Hct 22.2 % (35.5-45.6) L 01/31/20 10:32 MCV 93 fl (84-94) 01/31/20 10:32 MCH 31 pg (28-32) 01/31/20 10:32 MCHC 33 % (32-34) 01/31/20 10:32 RDW 14.5 % (13.2-15.2) 01/31/20 10:32 Plt Count 266 K/mm3 (140-440) 01/31/20 10:32 Lymph % (Auto) 12.8 % (13.4-35.0) L 01/31/20 10:32 [place] % (Auto) 7.7 % (0.0-7.3) H 01/31/20 10:32 Eos % (Auto) 4.2 % (0.0-4.3) 01/31/20 10:32 Baso % (Auto) 0.4 % (0.0-1.8) 01/31/20 10:32 Lymph # 0.7 K/mm3 (1.2-5.4) L 01/31/20 10:32 [place] # 0.4 K/mm3 (0.0-0.8) 01/31/20 10:32 Eos # 0.2 K/mm3 (0.0-0.4) 01/31/20 10:32 Baso # 0.0 K/mm3 (0.0-0.1) 01/31/20 10:32 Seg Neutrophils % 74.9 % (40.0-70.0) H 01/31/20 10:32 Seg Neutrophils # 4.2 K/mm3 (1.8-7.7) 01/31/20 10:32 PT 14.5 Sec. (12.2-14.9) 01/31/20 10:32 INR 1.12 (0.87-1.13) 01/31/20 10:32 APTT 30.8 Sec. (24.2-36.6) 01/31/20 10:32 Sodium 134 mmol/L (137-145) L 02/02/20 03:49 Potassium 3.7 mmol/L (3.6-5.0) 02/02/20 03:49 Chloride 94.2 mmol/L (98-107) L 02/02/20 03:49 Carbon Dioxide 22 mmol/L (22-30) 02/02/20 03:49 Anion Gap 22 mmol/L 02/02/20 03:49 BUN 48 mg/dL (9-20) H 02/02/20 03:49 Creatinine 8.3 mg/dL (0.8-1.5) H 02/02/20 03:49 Estimated GFR 8 ml/min 02/02/20 03:49 BUN/Creatinine Ratio 6 % 02/02/20 03:49 Glucose 84 mg/dL (75-100) 02/02/20 03:49 Calcium 7.6 mg/dL (8.4-10.2) L 02/02/20 03:49 Iron 43 ug/dL (49-181) L 02/02/20 13:39 TIBC 123 mcg/dL (250-450) L 02/02/20 13:39 % Saturation 34.96 % 02/02/20 13:39 Transferrin 117 mg/dl (180-329) L 02/02/20 13:39 Ferritin 657.4 ng/mL (13.0-400.0) H 02/02/20 13:39 Total Creatine Kinase 133 units/L (55-170) 01/31/20 10:41 CK-MB (CK-2) 3.0 ng/mL (0.0-4.0) 01/31/20 10:41 CK-MB (CK-2) Rel Index 2.2 (0-4) 01/31/20 10:41 Troponin T 0.036 ng/mL (0.00-0.029) H 01/31/20 10:41 NT-Pro-B Natriuret Pep > 03344 pg/mL (0-900) H 01/31/20 12:51 Triglycerides 109 mg/dL (2-149) 01/31/20 10:41 Cholesterol 102 mg/dL (50-199) 01/31/20 10:41 LDL Cholesterol Direct 41 mg/dL (50-130) L 01/31/20 10:41 HDL Cholesterol 53 mg/dL (40-59) 01/31/20 10:41 Cholesterol/HDL Ratio 1.92 % 01/31/20 10:41 Vitamin B12 481.3 pg/mL (211-911) 02/02/20 13:39 Folate 10.72 ng/mL (7.3-26.0) 02/02/20 13:39 TSH 1.840 mlU/mL (0.270-4.200) 01/31/20 10:32 Free T4 0.80 ng/dL (0.76-1.46) 01/31/20 10:32 White/IV: Voiding Method Toilet IV Catheter Type [Right INT / Saline Lock Forearm] IV Catheter Type [Left INT / Saline Lock Antecubital] Active Medications - Current Medications Current Medications: Generic Name Dose Route Start Last Admin Trade Name Freq PRN Reason Stop Dose Admin Acetaminophen 650 mg 01/31/20 12:43 02/02/20 11:13 Tylenol PO 650 mg Q4H PRN Administration Pain MILD(1-3)/Fever >100.5/TORIBIO Diphenhydramine HCl 25 mg 02/01/20 01:38 02/02/20 11:13 Benadryl IV 25 mg Q6H PRN Administration Itching Hydralazine HCl 20 mg 01/31/20 12:49 01/31/20 23:22 Apresoline IV 20 mg Q6HR PRN Administration Hypertension Hydralazine HCl 50 mg 01/31/20 22:00 02/01/20 22:43 Apresoline PO 50 mg Q8HR WILL Administration Sodium Chloride 100 mls @ 999 mls/hr 01/31/20 13:05 Nacl 0.9% IV EDIE PRN Hypotension Losartan Potassium 50 mg 01/31/20 22:00 02/02/20 11:12 Cozaar PO 50 mg QDAY WILL Administration Nifedipine 30 mg 01/31/20 22:00 02/02/20 11:12 Procardia Xl PO 30 mg Q12HR WILL Administration Ondansetron HCl 4 mg 01/31/20 12:43 01/31/20 17:27 Zofran IV 4 mg Q8H PRN Administration Nausea And Vomiting Sodium Chloride 10 ml 01/31/20 22:00 02/02/20 11:14 Sodium Chloride Flush Syringe 10 Ml IV 10 ml BID WILL Administration Sodium Chloride 10 ml 01/31/20 12:43 Sodium Chloride Flush Syringe 10 Ml IV PRN PRN LINE FLUSH
[2020-02-02] MEDS: hydrALAZINE 20 MG/1 ML INJ IV PRN ×2 (19:07→21:23)
[2020-02-02] MEDS ORDERED: SODIUM CHLORIDE*PRIMING MACHINE ONLY FOR DIALYSIS MC ONE (19:22)
[2020-02-03] MEDS: diphenhydrAMINE 50 MG/ML VIAL IV PRN ×3 (01:44→19:51)
[2020-02-03] MEDS: hydrALAZINE 20 MG/1 ML INJ IV PRN (01:50)
[2020-02-03] MEDS: hydrALAZINE 25 MG TAB PO SCH ×3 (06:44→22:21)
--- NOTE | 2020-02-03 08:41 | Progress Note ---
Subjective Interval history: Patient was seen today for follow-up he is currently on hemodialysis Friday and Friday dialysis dependent does not have a dialysis clinic Events of 24 hours vitals labs intake output medications were reviewed Past medical history: Reviewed Family history: Reviewed Social history: Reviewed Allergies: Reviewed Physical examination: Vitals: Reviewed HEENT: No pallor or icterus oral mucosa moist Neck: Supple no JVD no thyromegaly Chest: Bilateral clear to auscultation anteriorly central venous catheter site unremarkable Heart: Regular rate and rhythm S1-S2 heard no S3-S4 Abdomen: Soft nontender no voluntary guarding rigidity rebound Extremity: Dry skin less than 1+ peripheral edema Psychiatric: No evidence of agitation and aggression noted Dermatology: No petechial rashes Labs and x-rays: Reviewed from today Assessment and plan End-stage renal disease: Patient is currently dialysis dependent, we will dialyze on Friday and Friday Monitor dialysis-related labs History of MSSA bacteremia needs antibiotic till February 24, 2020 please arrange Immunofixation was normal in March 2019 Secondary hyperparathyroidism PTH level was 573 in March 2019 Phosphorus level was 9.8 in December 2019 We'll continue to follow and make recommendation for renal standpoint Objective - Vital Signs Vital signs: Vital Signs - 12hr 02/02/20 02/02/20 02/02/20 21:00 21:23 21:24 Temperature Pulse Rate 96 H 96 H 96 H Respiratory Rate Respiratory 18 Rate [Left Hand ] Blood Pressure 162/95 162/95 O2 Sat by Pulse Oximetry 02/03/20 02/03/20 02/03/20 01:26 01:50 04:58 Temperature 98.6 F 98.3 F Pulse Rate 99 H 99 H 101 H Respiratory 20 20 Rate Respiratory Rate [Left Hand ] Blood Pressure 163/104 163/104 147/95 O2 Sat by Pulse 94 96 Oximetry 02/03/20 06:44 Temperature Pulse Rate 101 H Respiratory Rate Respiratory Rate [Left Hand ] Blood Pressure 147/95 O2 Sat by Pulse Oximetry - Lab 01/31/20 10:32 02/02/20 03:49 Most recent lab results Calcium 7.6 mg/dL (8.4-10.2) L 02/02/20 03:49 Medications & Allergies - Medications Allergies/Adverse Reactions: Allergies heparin Adverse Reaction (Verified 01/31/20 10:23) Anaphylaxis Home Medications: Home Medications Medication Instructions Recorded Confirmed Last Taken Type Epoetin Leandro 10,000 Unit [Procrit] 10,000 unit SUB-Q EDIE vial 09/01/19 01/09/20 01/02/20 Rx Epoetin Leandro 10,000 Unit [Procrit] 10,000 unit SUB-Q EDIE vial 09/19/19 01/09/20 01/02/20 Rx Famotidine [Pepcid] 40 mg PO QHS #30 tablet 12/05/19 01/09/20 Unknown Rx Apixaban [Eliquis starter pack] 5 mg PO BID #1 tab.ds.pk 12/21/19 01/09/2009/17 11:49 Rx Acetaminophen [Acetaminophen TAB] 325 mg PO Q4H PRN #30 tablet 12/22/19 01/09/20 01/09/20 11:49 Rx Furosemide [Lasix TAB] 40 mg PO QDAY #30 tablet 12/22/19 01/09/20 Unknown Rx NIFEdipine XL [Procardia Xl] 60 mg PO QDAY #30 tablet 12/22/19 01/09/20 Unknown Rx Ondansetron [Zofran ODT TAB] 4 mg PO Q8HR #10 tab.rapdis 12/22/19 01/09/20 01/09/20 11:47 Rx Isosorbide Dinitrate [Isordil] 10 mg PO BID tablet 01/09/20 Unknown Rx oxyCODONE /ACETAMINOPHEN [Percocet 1 tab PO Q6H PRN tablet 01/09/20 Unknown Rx 5/325 mg] Apixaban [Eliquis] 5 mg PO Q12HR #60 tablet 01/18/20 Unknown Rx Calcium Acetate [Phoslo] 1,334 mg PO TIDWM #90 capsule 01/18/20 Unknown Rx Apixaban [Eliquis] 5 mg PO BID #60 tablet 01/25/20 Unknown Rx Aspirin [Aspirin BABY CHEW TAB] 81 mg PO QDAY #30 tab.chew 01/25/20 Unknown Rx Folic Acid [Folvite] 1 mg PO QDAY #30 tablet 01/25/20 Unknown Rx Furosemide [Lasix TAB] 40 mg PO QDAY #30 tablet 01/25/20 Unknown Rx Isosorbide Dinitrate [Isordil] 10 mg PO BID #60 tablet 01/25/20 Unknown Rx NIFEdipine XL [Procardia Xl] 60 mg PO QDAY #30 tablet 01/25/20 Unknown Rx Pravastatin [Pravachol] 20 mg PO QHS #30 tablet 01/25/20 Unknown Rx Thiamine [Vitamin B-1] 100 mg PO QDAY #30 tablet 01/25/20 Unknown Rx amLODIPine 10 mg PO QDAY #30 tablet 01/25/20 Unknown Rx carvediloL [Coreg] 25 mg PO BID #60 tablet 01/25/20 Unknown Rx levETIRAcetam [Keppra TAB] 750 mg PO BID #60 tablet 01/25/20 Unknown Rx Active Medications: Generic Name Dose Route Start Last Admin Trade Name Freq PRN Reason Stop Dose Admin Acetaminophen 650 mg 01/31/20 12:43 02/02/20 11:13 Tylenol PO 650 mg Q4H PRN Administration Pain MILD(1-3)/Fever >100.5/TORIBIO Diphenhydramine HCl 25 mg 02/01/20 01:38 02/03/20 01:44 Benadryl IV 25 mg Q6H PRN Administration Itching Hydralazine HCl 20 mg 01/31/20 12:49 02/03/20 01:50 Apresoline IV 20 mg Q6HR PRN Administration Hypertension Hydralazine HCl 50 mg 01/31/20 22:00 02/03/20 06:44 Apresoline PO 50 mg Q8HR WILL Administration Sodium Chloride 100 mls @ 999 mls/hr 01/31/20 13:05 Nacl 0.9% IV EDIE PRN Hypotension Losartan Potassium 50 mg 01/31/20 22:00 02/02/20 11:12 Cozaar PO 50 mg QDAY WILL Administration Nifedipine 30 mg 01/31/20 22:00 02/02/20 21:23 Procardia Xl PO 30 mg Q12HR WILL Administration Ondansetron HCl 4 mg 01/31/20 12:43 01/31/20 17:27 Zofran IV 4 mg Q8H PRN Administration Nausea And Vomiting Sodium Chloride 10 ml 01/31/20 22:00 02/02/20 21:23 Sodium Chloride Flush Syringe 10 Ml IV 10 ml BID WILL Administration Sodium Chloride 10 ml 01/31/20 12:43 02/03/20 01:49 Sodium Chloride Flush Syringe 10 Ml IV 10 ml PRN PRN Administration LINE FLUSH
[2020-02-03] MEDS: LOSARTAN 50 MG TAB PO SCH (12:00)
[2020-02-03] MEDS: NIFEdipine XL 30 MG TAB PO SCH ×2 (12:01→22:21)
[2020-02-03] MEDS: ACETAMINOPHEN 325 MG TAB PO PRN (12:02)
--- NOTE | 2020-02-03 13:42 | Progress Note ---
Assessment and Plan Assessment and plan: -- End stage renal disease/on HD Current Visit: Yes Status: Acute Patient noncompliant with hemodialysis nephrology evaluation noted , HD per schedule Patient was discharged from different outpatient HD centers due to his noncompliance with HD business change manager/health care social worker assisting with outpatient HD set up -- Acute on chronic systolic (congestive) heart failure Current Visit: No Status: Chronic Input output monitoring, fluid restriction Continue current management --Malignant hypertension Current Visit: Yes Status: Acute Closely monitor blood pressures, adjust medications as needed Strongly advised to comply with medications and diet --Uremia Current Visit: Yes Status: Acute Hemodialysis dialysis as per schedule per renal team, --History of seizure disorder Current Visit: No Status: Chronic Seizure precautions, continue Keppra, supportive care. Do not drive --DVT prophylaxis Current Visit: Yes Status: Acute SCD to bilateral lower extremities while in bed Patient is allergic to Heparin. Monitor closely and adjust management as needed Plan of care reviewed with the patient and his nurse I also discussed with case management History Interval history: Patient seen and examined in his room at the bedside Patient's chart medications reviewed End-stage renal disease on hemodialysis per schedule Patient is noncompliant with hemodialysis Outpatient HD centers refusing to take him Case management assisting Patient complains of mild edema of hands and ankles Due to fluid overload and edema Due to missed hemodialysis Vital signs noted Hospitalist Physical - Constitutional Vitals: Temp Pulse Resp BP Pulse Ox 98.9 F 75 18 165/98 99 02/03/20 11:38 02/03/20 12:00 02/03/20 11:38 02/03/20 11:38 02/03/20 11:38 General appearance: Present: no acute distress, well-nourished - EENT Eyes: Present: PERRL, EOM intact - Neck Neck: Present: supple, normal ROM - Respiratory Respiratory effort: normal Respiratory: bilateral: diminished, negative: rales, rhonchi, wheezing - Cardiovascular Rhythm: regular Heart Sounds: Present: S1 & S2 - Extremities Extremities: no ischemia, No edema - Abdominal General gastrointestinal: soft, non-tender, non-distended, normal bowel sounds - Integumentary Integumentary: Present: clear, warm - Psychiatric Psychiatric: appropriate mood/affect, cooperative - Neurologic Neurologic: CNII-XII intact, moves all extremities Results - Labs CBC & Chem 7: 01/31/20 10:32 02/02/20 03:49 Labs: Laboratory Last Values WBC 5.7 K/mm3 (4.5-11.0) 01/31/20 10:32 RBC 2.39 M/mm3 (3.65-5.03) L 01/31/20 10:32 Hgb 7.3 gm/dl (11.8-15.2) L 01/31/20 10:32 Hct 22.2 % (35.5-45.6) L 01/31/20 10:32 MCV 93 fl (84-94) 01/31/20 10:32 MCH 31 pg (28-32) 01/31/20 10:32 MCHC 33 % (32-34) 01/31/20 10:32 RDW 14.5 % (13.2-15.2) 01/31/20 10:32 Plt Count 266 K/mm3 (140-440) 01/31/20 10:32 Lymph % (Auto) 12.8 % (13.4-35.0) L 01/31/20 10:32 Mccone % (Auto) 7.7 % (0.0-7.3) H 01/31/20 10:32 Eos % (Auto) 4.2 % (0.0-4.3) 01/31/20 10:32 Baso % (Auto) 0.4 % (0.0-1.8) 01/31/20 10:32 Lymph # 0.7 K/mm3 (1.2-5.4) L 01/31/20 10:32 Mccone # 0.4 K/mm3 (0.0-0.8) 01/31/20 10:32 Eos # 0.2 K/mm3 (0.0-0.4) 01/31/20 10:32 Baso # 0.0 K/mm3 (0.0-0.1) 01/31/20 10:32 Seg Neutrophils % 74.9 % (40.0-70.0) H 01/31/20 10:32 Seg Neutrophils # 4.2 K/mm3 (1.8-7.7) 01/31/20 10:32 PT 14.5 Sec. (12.2-14.9) 01/31/20 10:32 INR 1.12 (0.87-1.13) 01/31/20 10:32 APTT 30.8 Sec. (24.2-36.6) 01/31/20 10:32 Sodium 134 mmol/L (137-145) L 02/02/20 03:49 Potassium 3.7 mmol/L (3.6-5.0) 02/02/20 03:49 Chloride 94.2 mmol/L (98-107) L 02/02/20 03:49 Carbon Dioxide 22 mmol/L (22-30) 02/02/20 03:49 Anion Gap 22 mmol/L 02/02/20 03:49 BUN 48 mg/dL (9-20) H 02/02/20 03:49 Creatinine 8.3 mg/dL (0.8-1.5) H 02/02/20 03:49 Estimated GFR 8 ml/min 02/02/20 03:49 BUN/Creatinine Ratio 6 % 02/02/20 03:49 Glucose 84 mg/dL (75-100) 02/02/20 03:49 Calcium 7.6 mg/dL (8.4-10.2) L 02/02/20 03:49 Iron 43 ug/dL (49-181) L 02/02/20 13:39 TIBC 123 mcg/dL (250-450) L 02/02/20 13:39 % Saturation 34.96 % 02/02/20 13:39 Transferrin 117 mg/dl (180-329) L 02/02/20 13:39 Ferritin 657.4 ng/mL (13.0-400.0) H 02/02/20 13:39 Total Creatine Kinase 133 units/L (55-170) 01/31/20 10:41 CK-MB (CK-2) 3.0 ng/mL (0.0-4.0) 01/31/20 10:41 CK-MB (CK-2) Rel Index 2.2 (0-4) 01/31/20 10:41 Troponin T 0.036 ng/mL (0.00-0.029) H 01/31/20 10:41 NT-Pro-B Natriuret Pep > 48545 pg/mL (0-900) H 01/31/20 12:51 Triglycerides 109 mg/dL (2-149) 01/31/20 10:41 Cholesterol 102 mg/dL (50-199) 01/31/20 10:41 LDL Cholesterol Direct 41 mg/dL (50-130) L 01/31/20 10:41 HDL Cholesterol 53 mg/dL (40-59) 01/31/20 10:41 Cholesterol/HDL Ratio 1.92 % 01/31/20 10:41 Vitamin B12 481.3 pg/mL (211-911) 02/02/20 13:39 Folate 10.72 ng/mL (7.3-26.0) 02/02/20 13:39 TSH 1.840 mlU/mL (0.270-4.200) 01/31/20 10:32 Free T4 0.80 ng/dL (0.76-1.46) 01/31/20 10:32 White/IV: Voiding Method Toilet IV Catheter Type [Right INT / Saline Lock Forearm] IV Catheter Type [Left INT / Saline Lock Antecubital] Active Medications - Current Medications Current Medications: Generic Name Dose Route Start Last Admin Trade Name Freq PRN Reason Stop Dose Admin Acetaminophen 650 mg 01/31/20 12:43 02/03/20 12:02 Tylenol PO 650 mg Q4H PRN Administration Pain MILD(1-3)/Fever >100.5/TORIBIO Diphenhydramine HCl 25 mg 02/01/20 01:38 02/03/20 12:03 Benadryl IV 25 mg Q6H PRN Administration Itching Hydralazine HCl 20 mg 01/31/20 12:49 02/03/20 01:50 Apresoline IV 20 mg Q6HR PRN Administration Hypertension Hydralazine HCl 50 mg 01/31/20 22:00 02/03/20 06:44 Apresoline PO 50 mg Q8HR WILL Administration Sodium Chloride 100 mls @ 999 mls/hr 01/31/20 13:05 Nacl 0.9% IV EDIE PRN Hypotension Losartan Potassium 50 mg 01/31/20 22:00 02/03/20 12:00 Cozaar PO 50 mg QDAY WILL Administration Nifedipine 30 mg 01/31/20 22:00 02/03/20 12:01 Procardia Xl PO 30 mg Q12HR WILL Administration Ondansetron HCl 4 mg 01/31/20 12:43 01/31/20 17:27 Zofran IV 4 mg Q8H PRN Administration Nausea And Vomiting Sodium Chloride 10 ml 01/31/20 22:00 02/03/20 12:05 Sodium Chloride Flush Syringe 10 Ml IV 10 ml BID WILL Administration Sodium Chloride 10 ml 01/31/20 12:43 02/03/20 01:49 Sodium Chloride Flush Syringe 10 Ml IV 10 ml PRN PRN Administration LINE FLUSH
[2020-02-04] MEDS: hydrALAZINE 20 MG/1 ML INJ IV PRN (01:21)
[2020-02-04] MEDS: diphenhydrAMINE 50 MG/ML VIAL IV PRN ×3 (02:07→21:14)
[2020-02-04] MEDS: hydrALAZINE 25 MG TAB PO SCH ×3 (05:36→21:11)
--- NOTE | 2020-02-04 06:55 | Progress Note ---
Subjective Interval history: Patient was seen today for follow-up of multiple renal related issues, around 11:30 in the morning he is currently on hemodialysis Friday and Friday his home medications have not been reconciled He was also seen in supervised on hemodialysis Events of 24 hours vitals labs intake output medications were reviewed Past medical history: Reviewed Family history: Reviewed Social history: Reviewed Allergies: Reviewed Physical examination: Vitals: Reviewed HEENT: No pallor or icterus oral mucosa moist Neck: Supple no JVD no thyromegaly Chest: Bilateral clear to auscultation anteriorly central venous catheter site unremarkable Heart: Regular rate and rhythm S1-S2 heard no S3-S4 Abdomen: Soft nontender no voluntary guarding rigidity rebound Extremity: Dry skin less than 1+ peripheral edema Psychiatric: No evidence of agitation and aggression noted Dermatology: No petechial rashes Labs and x-rays: Reviewed from today Assessment and plan End-stage renal disease: Patient is currently dialysis dependent, patient was seen and supervised on hemodialysis being dialyzed Friday and Friday seems to be tolerating treatment fairly well Accelerated hypertension appears to be much better controlled with the current regimen Patient needs to be in high protein diet Currently on antibiotic for MSSA bacteremia that needs to be continued till February 24, 2020 Hospital medicine needs to reconcile his home medication discussed with Dr. Robert Supportive care for now patient is homeless and does not have a dedicated dialysis clinic Immunofixation was normal in March 2019 Secondary hyperparathyroidism PTH level was 573 in March 2019 Phosphorus level was 9.8 in December 2019 We'll continue to follow and make recommendation for renal standpoint Objective - Vital Signs Vital signs: Vital Signs - 12hr 02/03/20 02/03/20 02/03/20 20:23 21:00 22:21 Temperature 97.9 F Pulse Rate 88 88 88 Respiratory 20 Rate Blood Pressure 150/85 150/85 O2 Sat by Pulse 98 Oximetry 02/04/20 02/04/20 02/04/20 00:11 01:21 04:57 Temperature 98.5 F 98.3 F Pulse Rate 94 H 94 H 65 Respiratory 18 18 Rate Blood Pressure 167/107 167/107 162/98 O2 Sat by Pulse 97 96 Oximetry 02/04/20 05:36 Temperature Pulse Rate 65 Respiratory Rate Blood Pressure 162/98 O2 Sat by Pulse Oximetry - Lab 01/31/20 10:32 02/02/20 03:49 Most recent lab results Calcium 7.6 mg/dL (8.4-10.2) L 02/02/20 03:49 Medications & Allergies - Medications Allergies/Adverse Reactions: Allergies heparin Adverse Reaction (Verified 01/31/20 10:23) Anaphylaxis Home Medications: Home Medications Medication Instructions Recorded Confirmed Last Taken Type Epoetin Leandro 10,000 Unit [Procrit] 10,000 unit SUB-Q EDIE vial 09/01/19 01/09/20 01/02/20 Rx Epoetin Leandro 10,000 Unit [Procrit] 10,000 unit SUB-Q EDIE vial 09/19/19 01/09/20 01/02/20 Rx Famotidine [Pepcid] 40 mg PO QHS #30 tablet 12/05/19 01/09/20 Unknown Rx Apixaban [Eliquis starter pack] 5 mg PO BID #1 tab.ds.pk 12/21/19 01/09/20 01/09/20 11:49 Rx Acetaminophen [Acetaminophen TAB] 325 mg PO Q4H PRN #30 tablet 12/22/19 01/09/20 01/09/20 11:49 Rx Furosemide [Lasix TAB] 40 mg PO QDAY #30 tablet 12/22/19 01/09/20 Unknown Rx NIFEdipine XL [Procardia Xl] 60 mg PO QDAY #30 tablet 12/22/19 01/09/20 Unknown Rx Ondansetron [Zofran ODT TAB] 4 mg PO Q8HR #10 tab.rapdis 12/22/19 01/09/20 01/09/20 11:47 Rx Isosorbide Dinitrate [Isordil] 10 mg PO BID tablet 01/09/20 Unknown Rx oxyCODONE /ACETAMINOPHEN [Percocet 1 tab PO Q6H PRN tablet 01/09/20 Unknown Rx 5/325 mg] Apixaban [Eliquis] 5 mg PO Q12HR #60 tablet 01/18/20 Unknown Rx Calcium Acetate [Phoslo] 1,334 mg PO TIDWM #90 capsule 01/18/20 Unknown Rx Apixaban [Eliquis] 5 mg PO BID #60 tablet 01/25/20 Unknown Rx Aspirin [Aspirin BABY CHEW TAB] 81 mg PO QDAY #30 tab.chew 01/25/20 Unknown Rx Folic Acid [Folvite] 1 mg PO QDAY #30 tablet 01/25/20 Unknown Rx Furosemide [Lasix TAB] 40 mg PO QDAY #30 tablet 01/25/20 Unknown Rx Isosorbide Dinitrate [Isordil] 10 mg PO BID #60 tablet 01/25/20 Unknown Rx NIFEdipine XL [Procardia Xl] 60 mg PO QDAY #30 tablet 01/25/20 Unknown Rx Pravastatin [Pravachol] 20 mg PO QHS #30 tablet 01/25/20 Unknown Rx Thiamine [Vitamin B-1] 100 mg PO QDAY #30 tablet 01/25/20 Unknown Rx amLODIPine 10 mg PO QDAY #30 tablet 01/25/20 Unknown Rx carvediloL [Coreg] 25 mg PO BID #60 tablet 01/25/20 Unknown Rx levETIRAcetam [Keppra TAB] 750 mg PO BID #60 tablet 01/25/20 Unknown Rx Active Medications: Generic Name Dose Route Start Last Admin Trade Name Freq PRN Reason Stop Dose Admin Acetaminophen 650 mg 01/31/20 12:43 02/03/20 12:02 Tylenol PO 650 mg Q4H PRN Administration Pain MILD(1-3)/Fever >100.5/TORIBIO Diphenhydramine HCl 25 mg 02/01/20 01:38 02/04/20 02:07 Benadryl IV 25 mg Q6H PRN Administration Itching Hydralazine HCl 20 mg 01/31/20 12:49 02/04/20 01:21 Apresoline IV 20 mg Q6HR PRN Administration Hypertension Hydralazine HCl 50 mg 01/31/20 22:00 02/04/20 05:36 Apresoline PO 50 mg Q8HR WILL Administration Sodium Chloride 100 mls @ 999 mls/hr 01/31/20 13:05 Nacl 0.9% IV EDIE PRN Hypotension Losartan Potassium 50 mg 01/31/20 22:00 02/03/20 12:00 Cozaar PO 50 mg QDAY WILL Administration Nifedipine 30 mg 01/31/20 22:00 02/03/20 22:21 Procardia Xl PO 30 mg Q12HR WILL Administration Ondansetron HCl 4 mg 01/31/20 12:43 01/31/20 17:27 Zofran IV 4 mg Q8H PRN Administration Nausea And Vomiting Sodium Chloride 10 ml 01/31/20 22:00 05/07/20 22:22 Sodium Chloride Flush Syringe 10 Ml IV 10 ml BID WILL Administration Sodium Chloride 10 ml 01/31/20 12:43 02/04/20 02:09 Sodium Chloride Flush Syringe 10 Ml IV 10 ml PRN PRN Administration LINE FLUSH
[2020-02-04] MEDS ORDERED: diphenhydrAMINE 50 MG/ML VIAL ONE (12:18)
--- NOTE | 2020-02-04 16:06 | Progress Note ---
Assessment and Plan Assessment and plan: --Malignant hypertension Current Visit: Yes Status: Acute Closely monitor blood pressures, adjust medications as needed Strongly advised to comply with medications and diet -- End stage renal disease/on HD Current Visit: Yes Status: Acute Patient noncompliant with hemodialysis , HD per schedule due to his noncompliance patient was discharged from HD centers test manager/social media executive assisting with outpatient HD set up -- Acute on chronic systolic (congestive) heart failure Current Visit: No Status: Chronic Input output monitoring, fluid restriction Continue current management --Uremia Current Visit: Yes Status: Acute Hemodialysis dialysis as per schedule per renal team, --History of seizure disorder Current Visit: No Status: Chronic Seizure precautions, continue Keppra, supportive care. Do not drive --DVT prophylaxis Current Visit: Yes Status: Acute SCD to bilateral lower extremities while in bed Patient is allergic to Heparin. Monitor closely and adjust management as needed Plan of care reviewed with the patient and his nurse I also discussed with case management History Interval history: Patient seen and examined at the bedside No new complaints Vital signs reviewed Hospitalist Physical - Constitutional Vitals: Temp Pulse Resp BP Pulse Ox 98.2 F 69 20 168/84 96 02/04/20 13:45 02/04/20 13:45 02/04/20 13:45 02/04/20 13:45 02/04/20 04:57 General appearance: Present: no acute distress, well-nourished - EENT Eyes: Present: PERRL, EOM intact - Neck Neck: Present: supple, normal ROM - Respiratory Respiratory effort: normal Respiratory: bilateral: diminished, negative: rales, rhonchi, wheezing - Cardiovascular Rhythm: regular Heart Sounds: Present: S1 & S2 - Extremities Extremities: no ischemia, No edema - Abdominal General gastrointestinal: soft, non-tender, non-distended, normal bowel sounds - Integumentary Integumentary: Present: clear, warm - Psychiatric Psychiatric: appropriate mood/affect, cooperative - Neurologic Neurologic: moves all extremities Results - Labs CBC & Chem 7: 01/31/20 10:32 02/02/20 03:49 Labs: Laboratory Last Values WBC 5.7 K/mm3 (4.5-11.0) 01/31/20 10:32 RBC 2.39 M/mm3 (3.65-5.03) L 01/31/20 10:32 Hgb 7.3 gm/dl (11.8-15.2) L 01/31/20 10:32 Hct 22.2 % (35.5-45.6) L 01/31/20 10:32 MCV 93 fl (84-94) 01/31/20 10:32 MCH 31 pg (28-32) 01/31/20 10:32 MCHC 33 % (32-34) 01/31/20 10:32 RDW 14.5 % (13.2-15.2) 01/31/20 10:32 Plt Count 266 K/mm3 (140-440) 01/31/20 10:32 Lymph % (Auto) 12.8 % (13.4-35.0) L 01/31/20 10:32 [place] % (Auto) 7.7 % (0.0-7.3) H 01/31/20 10:32 Eos % (Auto) 4.2 % (0.0-4.3) 01/31/20 10:32 Baso % (Auto) 0.4 % (0.0-1.8) 01/31/20 10:32 Lymph # 0.7 K/mm3 (1.2-5.4) L 01/31/20 10:32 [place] # 0.4 K/mm3 (0.0-0.8) 01/31/20 10:32 Eos # 0.2 K/mm3 (0.0-0.4) 01/31/20 10:32 Baso # 0.0 K/mm3 (0.0-0.1) 01/31/20 10:32 Seg Neutrophils % 74.9 % (40.0-70.0) H 01/31/20 10:32 Seg Neutrophils # 4.2 K/mm3 (1.8-7.7) 01/31/20 10:32 PT 14.5 Sec. (12.2-14.9) 01/31/20 10:32 INR 1.12 (0.87-1.13) 01/31/20 10:32 APTT 30.8 Sec. (24.2-36.6) 01/31/20 10:32 Sodium 134 mmol/L (137-145) L 02/02/20 03:49 Potassium 3.7 mmol/L (3.6-5.0) 02/02/20 03:49 Chloride 94.2 mmol/L (98-107) L 02/02/20 03:49 Carbon Dioxide 22 mmol/L (22-30) 02/02/20 03:49 Anion Gap 22 mmol/L 02/02/20 03:49 BUN 48 mg/dL (9-20) H 02/02/20 03:49 Creatinine 8.3 mg/dL (0.8-1.5) H 02/02/20 03:49 Estimated GFR 8 ml/min 02/02/20 03:49 BUN/Creatinine Ratio 6 % 02/02/20 03:49 Glucose 84 mg/dL (75-100) 02/02/20 03:49 Calcium 7.6 mg/dL (8.4-10.2) L 02/02/20 03:49 Iron 43 ug/dL (49-181) L 02/02/20 13:39 TIBC 123 mcg/dL (250-450) L 02/02/20 13:39 % Saturation 34.96 % 02/02/20 13:39 Transferrin 117 mg/dl (180-329) L 02/02/20 13:39 Ferritin 657.4 ng/mL (13.0-400.0) H 02/02/20 13:39 Total Creatine Kinase 133 units/L (55-170) 01/31/20 10:41 CK-MB (CK-2) 3.0 ng/mL (0.0-4.0) 01/31/20 10:41 CK-MB (CK-2) Rel Index 2.2 (0-4) 01/31/20 10:41 Troponin T 0.036 ng/mL (0.00-0.029) H 01/31/20 10:41 NT-Pro-B Natriuret Pep > 20710 pg/mL (0-900) H 01/31/20 12:51 Triglycerides 109 mg/dL (2-149) 01/31/20 10:41 Cholesterol 102 mg/dL (50-199) 01/31/20 10:41 LDL Cholesterol Direct 41 mg/dL (50-130) L 01/31/20 10:41 HDL Cholesterol 53 mg/dL (40-59) 01/31/20 10:41 Cholesterol/HDL Ratio 1.92 % 01/31/20 10:41 Vitamin B12 481.3 pg/mL (211-911) 02/02/20 13:39 Folate 10.72 ng/mL (7.3-26.0) 02/02/20 13:39 TSH 1.840 mlU/mL (0.270-4.200) 01/31/20 10:32 Free T4 0.80 ng/dL (0.76-1.46) 01/31/20 10:32 White/IV: Voiding Method Toilet IV Catheter Type [Right INT / Saline Lock Forearm] IV Catheter Type [Left INT / Saline Lock Antecubital] Active Medications - Current Medications Current Medications: Generic Name Dose Route Start Last Admin Trade Name Freq PRN Reason Stop Dose Admin Acetaminophen 650 mg 01/31/20 12:43 02/03/20 12:02 Tylenol PO 650 mg Q4H PRN Administration Pain MILD(1-3)/Fever >100.5/TORIBIO Aspirin 81 mg 02/05/20 10:00 Baby Aspirin PO QDAY [facility] Carvedilol 25 mg 02/04/20 22:00 Coreg PO BID [facility] Diphenhydramine HCl 25 mg 02/01/20 01:38 02/04/20 12:19 Benadryl IV 25 mg Q6H PRN Administration Itching Folic Acid 1 mg 02/05/20 10:00 Folvite PO QDAY [facility] Hydralazine HCl 20 mg 01/31/20 12:49 02/04/20 01:21 Apresoline IV 20 mg Q6HR PRN Administration Hypertension Hydralazine HCl 50 mg 01/31/20 22:00 02/04/20 05:36 Apresoline PO 50 mg Q8HR WILL Administration Sodium Chloride 100 mls @ 999 mls/hr 01/31/20 13:05 Nacl 0.9% IV EDIE PRN Hypotension Isosorbide Dinitrate 10 mg 02/04/20 22:00 Isordil PO BID [facility] Losartan Potassium 50 mg 01/31/20 22:00 02/03/20 12:00 Cozaar PO 50 mg QDAY WILL Administration Miscellaneous Medication 750 mg 02/04/20 22:00 Levetiracetam [Keppra Tab] PO BID [facility] Nifedipine 30 mg 01/31/20 22:00 02/03/20 22:21 Procardia Xl PO 30 mg Q12HR WILL Administration Ondansetron HCl 4 mg 01/31/20 12:43 01/31/20 17:27 Zofran IV 4 mg Q8H PRN Administration Nausea And Vomiting Pravastatin Sodium 20 mg 02/04/20 22:00 Pravachol PO QHS WILL Sodium Chloride 10 ml 01/31/20 22:00 02/03/20 22:22 Sodium Chloride Flush Syringe 10 Ml IV 10 ml BID WILL Administration Sodium Chloride 10 ml 01/31/20 12:43 02/04/20 02:09 Sodium Chloride Flush Syringe 10 Ml IV 10 ml PRN PRN Administration LINE FLUSH Thiamine HCl 100 mg 02/05/20 10:00 Vitamin B-1 PO QDAY WILL
[2020-02-04] MEDS: NIFEdipine XL 30 MG TAB PO SCH ×2 (18:26→21:10)
[2020-02-04] MEDS: LOSARTAN 50 MG TAB PO SCH (18:26)
[2020-02-04] MEDS: levETIRAcetam 500 MG TAB PO SCH (21:09)
[2020-02-04] MEDS: PRAVASTATIN 20 MG TAB PO SCH (21:10)
[2020-02-04] MEDS: carvediloL 25 MG TAB PO SCH (21:10)
[2020-02-04] MEDS: ACETAMINOPHEN 325 MG TAB PO PRN (21:13)
[2020-02-04] MEDS: ISOSORBIDE DINITRATE 10 MG TAB PO SCH (21:50)
[2020-02-04] MEDS ORDERED: NON-FORMULARY EACH (Levetiracetam [Keppra Tab] 750 MG) PO SCH (22:00)
[2020-02-05] MEDS: hydrALAZINE 25 MG TAB PO SCH ×3 (05:54→22:11)
[2020-02-05] MEDS: THIAMINE 100 MG TAB PO SCH (09:50)
[2020-02-05] MEDS: FOLIC ACID 1 MG TAB PO SCH (09:50)
[2020-02-05] MEDS: levETIRAcetam 500 MG TAB PO SCH ×2 (09:50→22:10)
[2020-02-05] MEDS: carvediloL 25 MG TAB PO SCH ×2 (09:51→22:11)
[2020-02-05] MEDS: ASPIRIN 81 MG TAB CHEW PO SCH (09:51)
[2020-02-05] MEDS: NIFEdipine XL 30 MG TAB PO SCH ×2 (09:52→22:11)
[2020-02-05] MEDS: LOSARTAN 50 MG TAB PO SCH (09:52)
[2020-02-05] MEDS: ISOSORBIDE DINITRATE 10 MG TAB PO SCH ×2 (09:52→22:08)
[2020-02-05] MEDS: diphenhydrAMINE 50 MG/ML VIAL IV PRN ×2 (14:31→22:16)
--- NOTE | 2020-02-05 20:22 | Progress Note ---
Assessment and Plan Assessment and plan: --Malignant hypertension Current Visit: Yes Status: Acute Well-controlled, continue current antihypertensives PRN hydralazine, -- End stage renal disease/on HD Current Visit: Yes Status: Acute Patient noncompliant with hemodialysis , HD per schedule due to his noncompliance patient was discharged from HD centers manager loss prevention/social service liaison assisting with outpatient HD set up -- Acute on chronic systolic (congestive) heart failure Current Visit: No Status: Chronic Input output monitoring, fluid restriction Continue current management --Uremia Current Visit: Yes Status: Acute Hemodialysis dialysis as per schedule per renal team, --History of seizure disorder Current Visit: No Status: Chronic Seizure precautions, continue Keppra, supportive care. Do not drive --DVT prophylaxis Current Visit: Yes Status: Acute SCD to bilateral lower extremities while in bed Patient is allergic to Heparin. Medically stable for discharge Awaiting outpatient HD scheduling History Interval history: Patient seen and examined at the bedside Patient has no new complaints Receiving hemodialysis per schedule Awaiting outpatient hemodialysis chair scheduling Vital signs noted Hospitalist Physical - Constitutional Vitals: Temp Pulse Resp BP Pulse Ox 98.6 F 60 22 142/87 99 02/05/20 17:02 02/05/20 17:02 02/05/20 17:02 02/05/20 17:02 02/05/20 17:02 General appearance: Present: no acute distress, well-nourished - EENT Eyes: Present: PERRL, EOM intact - Neck Neck: Present: supple, normal ROM - Respiratory Respiratory effort: normal Respiratory: bilateral: diminished, negative: rales, rhonchi, wheezing - Cardiovascular Rhythm: regular Heart Sounds: Present: S1 & S2 - Extremities Extremities: no ischemia, No edema - Abdominal General gastrointestinal: soft, non-tender, non-distended, normal bowel sounds - Integumentary Integumentary: Present: clear, warm - Psychiatric Psychiatric: appropriate mood/affect, cooperative - Neurologic Neurologic: moves all extremities Results - Labs CBC & Chem 7: 01/31/20 10:32 02/02/20 03:49 Labs: Laboratory Last Values WBC 5.7 K/mm3 (4.5-11.0) 01/31/20 10:32 RBC 2.39 M/mm3 (3.65-5.03) L 01/31/20 10:32 Hgb 7.3 gm/dl (11.8-15.2) L 01/31/20 10:32 Hct 22.2 % (35.5-45.6) L 01/31/20 10:32 MCV 93 fl (84-94) 01/31/20 10:32 MCH 31 pg (28-32) 01/31/20 10:32 MCHC 33 % (32-34) 01/31/20 10:32 RDW 14.5 % (13.2-15.2) 01/31/20 10:32 Plt Count 266 K/mm3 (140-440) 01/31/20 10:32 Lymph % (Auto) 12.8 % (13.4-35.0) L 01/31/20 10:32 [place] % (Auto) 7.7 % (0.0-7.3) H 01/31/20 10:32 Eos % (Auto) 4.2 % (0.0-4.3) 01/31/20 10:32 Baso % (Auto) 0.4 % (0.0-1.8) 01/31/20 10:32 Lymph # 0.7 K/mm3 (1.2-5.4) L 01/31/20 10:32 [place] # 0.4 K/mm3 (0.0-0.8) 01/31/20 10:32 Eos # 0.2 K/mm3 (0.0-0.4) 01/31/20 10:32 Baso # 0.0 K/mm3 (0.0-0.1) 01/31/20 10:32 Seg Neutrophils % 74.9 % (40.0-70.0) H 01/31/20 10:32 Seg Neutrophils # 4.2 K/mm3 (1.8-7.7) 01/31/20 10:32 PT 14.5 Sec. (12.2-14.9) 01/31/20 10:32 INR 1.12 (0.87-1.13) 01/31/20 10:32 APTT 30.8 Sec. (24.2-36.6) 01/31/20 10:32 Sodium 134 mmol/L (137-145) L 02/02/20 03:49 Potassium 3.7 mmol/L (3.6-5.0) 02/02/20 03:49 Chloride 94.2 mmol/L (98-107) L 02/02/20 03:49 Carbon Dioxide 22 mmol/L (22-30) 02/02/20 03:49 Anion Gap 22 mmol/L 02/02/20 03:49 BUN 48 mg/dL (9-20) H 02/02/20 03:49 Creatinine 8.3 mg/dL (0.8-1.5) H 02/02/20 03:49 Estimated GFR 8 ml/min 02/02/20 03:49 BUN/Creatinine Ratio 6 % 02/02/20 03:49 Glucose 84 mg/dL (75-100) 02/02/20 03:49 Calcium 7.6 mg/dL (8.4-10.2) L 02/02/20 03:49 Iron 43 ug/dL (49-181) L 02/02/20 13:39 TIBC 123 mcg/dL (250-450) L 02/02/20 13:39 % Saturation 34.96 % 02/02/20 13:39 Transferrin 117 mg/dl (180-329) L 02/02/20 13:39 Ferritin 657.4 ng/mL (13.0-400.0) H 02/02/20 13:39 Total Creatine Kinase 133 units/L (55-170) 01/31/20 10:41 CK-MB (CK-2) 3.0 ng/mL (0.0-4.0) 01/31/20 10:41 CK-MB (CK-2) Rel Index 2.2 (0-4) 01/31/20 10:41 Troponin T 0.036 ng/mL (0.00-0.029) H 01/31/20 10:41 NT-Pro-B Natriuret Pep > 31472 pg/mL (0-900) H 01/31/20 12:51 Triglycerides 109 mg/dL (2-149) 01/31/20 10:41 Cholesterol 102 mg/dL (50-199) 01/31/20 10:41 LDL Cholesterol Direct 41 mg/dL (50-130) L 01/31/20 10:41 HDL Cholesterol 53 mg/dL (40-59) 01/31/20 10:41 Cholesterol/HDL Ratio 1.92 % 01/31/20 10:41 Vitamin B12 481.3 pg/mL (211-911) 02/02/20 13:39 Folate 10.72 ng/mL (7.3-26.0) 02/02/20 13:39 TSH 1.840 mlU/mL (0.270-4.200) 01/31/20 10:32 Free T4 0.80 ng/dL (0.76-1.46) 01/31/20 10:32 White/IV: Voiding Method Urinal IV Catheter Type [Right INT / Saline Lock Forearm] IV Catheter Type [Left INT / Saline Lock Antecubital] IV Catheter Type [Right VAS Cath Subclavian] Active Medications - Current Medications Current Medications: Generic Name Dose Route Start Last Admin Trade Name Freq PRN Reason Stop Dose Admin Acetaminophen 650 mg 01/31/20 12:43 02/04/20 21:13 Tylenol PO 650 mg Q4H PRN Administration Pain MILD(1-3)/Fever >100.5/TORIBIO Aspirin 81 mg 02/05/20 10:00 02/05/20 09:51 Baby Aspirin PO 81 mg QDAY WILL Administration Carvedilol 25 mg 02/04/20 22:00 02/05/20 09:51 Coreg PO 25 mg BID WILL Administration Diphenhydramine HCl 25 mg 02/01/20 01:38 02/05/20 14:31 Benadryl IV 25 mg Q6H PRN Administration Itching Folic Acid 1 mg 02/05/20 10:00 02/05/20 09:50 Folvite PO 1 mg QDAY WILL Administration Hydralazine HCl 20 mg 01/31/20 12:49 02/04/20 01:21 Apresoline IV 20 mg Q6HR PRN Administration Hypertension Hydralazine HCl 50 mg 01/31/20 22:00 02/05/20 14:30 Apresoline PO 50 mg Q8HR WILL Administration Sodium Chloride 100 mls @ 999 mls/hr 01/31/20 13:05 Nacl 0.9% IV EDIE PRN Hypotension Isosorbide Dinitrate 10 mg 02/04/20 22:00 02/05/20 09:52 Isordil PO 10 mg BID WILL Administration Levetiracetam 750 mg 02/04/20 22:00 02/05/20 09:50 Keppra PO 750 mg BID WILL Administration Losartan Potassium 50 mg 01/31/20 22:00 02/05/20 09:52 Cozaar PO 50 mg QDAY WILL Administration Nifedipine 30 mg 01/31/20 22:00 02/05/20 09:52 Procardia Xl PO 30 mg Q12HR WILL Administration Ondansetron HCl 4 mg 01/31/20 12:43 01/31/20 17:27 Zofran IV 4 mg Q8H PRN Administration Nausea And Vomiting Pravastatin Sodium 20 mg 02/04/20 22:00 02/04/20 21:10 Pravachol PO 20 mg QHS WILL Administration Sodium Chloride 10 ml 01/31/20 22:00 02/05/20 09:55 Sodium Chloride Flush Syringe 10 Ml IV 10 ml BID WILL Administration Sodium Chloride 10 ml 01/31/20 12:43 02/04/20 02:09 Sodium Chloride Flush Syringe 10 Ml IV 10 ml PRN PRN Administration LINE FLUSH Thiamine HCl 100 mg 02/05/20 10:00 02/05/20 09:50 Vitamin B-1 PO 100 mg QDAY WILL Administration
[2020-02-05] MEDS: PRAVASTATIN 20 MG TAB PO SCH (22:11)
[2020-02-06] MEDS: hydrALAZINE 25 MG TAB PO SCH ×3 (05:22→21:29)
--- NOTE | 2020-02-06 07:13 | Event Note ---
Patient will continue with hemodialysis treatment 3 times a week Will need follow-up labs which will be ordered today Will give him erythropoietin 20,000 units 1 He will need antibiotic till February 24, 2020 4 MSSA bacteremia Patient needs to be on 2 g Ancef after every dialysis treatment,
[2020-02-06 07:40] LABS: Hematocrit 23.1 % (35.5-45.6); Hemoglobin 7.8 gm/dl (11.8-15.2); Mean Corpuscular HGB Conc 34 % (32-34); Mean Corpuscular Volume 93 fl (84-94); Platelet Count 277 K/mm3 (140-440); Red Blood Count 2.48 M/mm3 (3.65-5.03); Red Cell Distribution Width 14.6 % (13.2-15.2)
[2020-02-06 07:57] LABS: Calcium 8.3 mg/dL (8.4-10.2)
[2020-02-06] MEDS ORDERED: EPOETIN ALFA 20,000 UNIT/1 ML INJ SUB-Q NR (08:15)
[2020-02-06] MEDS: LOSARTAN 50 MG TAB PO SCH (10:00)
[2020-02-06] MEDS: levETIRAcetam 500 MG TAB PO SCH ×2 (10:00→21:30)
[2020-02-06] MEDS: ASPIRIN 81 MG TAB CHEW PO SCH (10:00)
[2020-02-06] MEDS: FOLIC ACID 1 MG TAB PO SCH (10:00)
[2020-02-06] MEDS: NIFEdipine XL 30 MG TAB PO SCH ×2 (10:00→21:30)
[2020-02-06] MEDS: THIAMINE 100 MG TAB PO SCH (10:00)
[2020-02-06] MEDS: carvediloL 25 MG TAB PO SCH ×2 (10:01→21:29)
[2020-02-06] MEDS: diphenhydrAMINE 50 MG/ML VIAL IV PRN ×2 (10:03→21:30)
[2020-02-06] MEDS: ISOSORBIDE DINITRATE 10 MG TAB PO SCH ×2 (10:05→21:47)
[2020-02-06 11:00] LABS: Anisocytosis Few; Hypochromasia 1+; Platelet Estimate Consistent w Auto; Total Cells Counted 100
--- NOTE | 2020-02-06 12:59 | Progress Note ---
Assessment and Plan Assessment and plan: --Malignant hypertension Current Visit: Yes Status: Acute Well-controlled, continue current antihypertensives PRN hydralazine, -- End stage renal disease/on HD Current Visit: Yes Status: Acute Patient noncompliant with hemodialysis , HD per schedule due to his noncompliance patient was discharged from HD centers manager printing/mental health social worker assisting with outpatient HD set up -- Acute on chronic systolic (congestive) heart failure Current Visit: No Status: Chronic Input output monitoring, fluid restriction Continue current management --Uremia Current Visit: Yes Status: Acute Hemodialysis dialysis as per schedule per renal team, --History of seizure disorder Current Visit: No Status: Chronic Seizure precautions, continue Keppra, supportive care. Do not drive --DVT prophylaxis Current Visit: Yes Status: Acute SCD to bilateral lower extremities while in bed Patient is allergic to Heparin. Medically stable for discharge History Interval history: I Have seen and examined the patient Patient is comfortable no complaints Awaiting outpatient HD placement Vital stable Hospitalist Physical - Constitutional Vitals: Temp Pulse Resp BP Pulse Ox 99.3 F 84 20 120/69 99 02/06/20 11:42 02/06/20 11:42 02/06/20 11:42 02/06/20 11:42 02/06/20 11:42 General appearance: Present: no acute distress, well-nourished - EENT Eyes: Present: PERRL, EOM intact - Neck Neck: Present: supple, normal ROM - Respiratory Respiratory effort: normal Respiratory: bilateral: diminished, negative: rales, rhonchi, wheezing - Cardiovascular Rhythm: regular Heart Sounds: Present: S1 & S2 - Extremities Extremities: no ischemia, No edema - Abdominal General gastrointestinal: soft, non-tender, normal bowel sounds - Integumentary Integumentary: Present: clear, warm - Psychiatric Psychiatric: appropriate mood/affect - Neurologic Neurologic: CNII-XII intact, moves all extremities Results - Labs CBC & Chem 7: 02/06/20 07:19 02/06/20 07:19 Labs: Laboratory Last Values WBC 4.0 K/mm3 (4.5-11.0) L 02/06/20 07:19 RBC 2.48 M/mm3 (3.65-5.03) L 02/06/20 07:19 Hgb 7.8 gm/dl (11.8-15.2) L 02/06/20 07:19 Hct 23.1 % (35.5-45.6) L 02/06/20 07:19 MCV 93 fl (84-94) 02/06/20 07:19 MCH 31 pg (28-32) 02/06/20 07:19 MCHC 34 % (32-34) 02/06/20 07:19 RDW 14.6 % (13.2-15.2) 02/06/20 07:19 Plt Count 277 K/mm3 (140-440) 02/06/20 07:19 Lymph % (Auto) 12.8 % (13.4-35.0) L 01/31/20 10:32 [place] % (Auto) 7.7 % (0.0-7.3) H 01/31/20 10:32 Eos % (Auto) 4.2 % (0.0-4.3) 01/31/20 10:32 Baso % (Auto) School Office Assistant 02/06/20 07:19 Lymph # 0.7 K/mm3 (1.2-5.4) L 01/31/20 10:32 [place] # 0.4 K/mm3 (0.0-0.8) 01/31/20 10:32 Eos # 0.2 K/mm3 (0.0-0.4) 01/31/20 10:32 Baso # 0.0 K/mm3 (0.0-0.1) 01/31/20 10:32 Add Manual Diff Complete 02/06/20 07:19 Total Counted 100 02/06/20 07:19 Seg Neutrophils % 74.9 % (40.0-70.0) H 01/31/20 10:32 Seg Neuts % (Manual) 65.0 % (40.0-70.0) 02/06/20 07:19 Band Neutrophils % 0 % 02/06/20 07:19 Lymphocytes % (Manual) 16.0 % (13.4-35.0) 02/06/20 07:19 Reactive Lymphs % (Man) 0 % 02/06/20 07:19 Monocytes % (Manual) 11.0 % (0.0-7.3) H 02/06/20 07:19 Eosinophils % (Manual) 4.0 % (0.0-4.3) 02/06/20 07:19 Basophils % (Manual) 4.0 % (0.0-1.8) H 02/06/20 07:19 Metamyelocytes % 0 % 02/06/20 07:19 Myelocytes % 0 % 02/06/20 07:19 Promyelocytes % 0 % 02/06/20 07:19 Blast Cells % 0 % 02/06/20 07:19 Nucleated RBC % Not Reportable 02/06/20 07:19 Seg Neutrophils # 4.2 K/mm3 (1.8-7.7) 01/31/20 10:32 Seg Neutrophils # Man 2.6 K/mm3 (1.8-7.7) 02/06/20 07:19 Band Neutrophils # 0.0 K/mm3 02/06/20 07:19 Lymphocytes # (Manual) 0.6 K/mm3 (1.2-5.4) L 02/06/20 07:19 Abs React Lymphs (Man) 0.0 K/mm3 02/06/20 07:19 Monocytes # (Manual) 0.4 K/mm3 (0.0-0.8) 02/06/20 07:19 Eosinophils # (Manual) 0.2 K/mm3 (0.0-0.4) 02/06/20 07:19 Basophils # (Manual) 0.2 K/mm3 (0.0-0.1) H 02/06/20 07:19 Metamyelocytes # 0.0 K/mm3 02/06/20 07:19 Myelocytes # 0.0 K/mm3 02/06/20 07:19 Promyelocytes # 0.0 K/mm3 02/06/20 07:19 Blast Cells # 0.0 K/mm3 02/06/20 07:19 WBC Morphology Not Reportable 02/06/20 07:19 Hypersegmented Neuts Not Reportable 02/06/20 07:19 Hyposegmented Neuts Not Reportable 02/06/20 07:19 Hypogranular Neuts Not Reportable 02/06/20 07:19 Smudge Cells Not Reportable 02/06/20 07:19 Toxic Granulation Not Reportable 02/06/20 07:19 Toxic Vacuolation Not Reportable 02/06/20 07:19 Dohle Bodies Not Reportable 02/06/20 07:19 Pelger-Huet Anomaly Not Reportable 02/06/20 07:19 Nuzhat Rods Not Reportable 02/06/20 07:19 Platelet Estimate Consistent w auto 02/06/20 07:19 Clumped Platelets Not Reportable 02/06/20 07:19 Plt Clumps, EDTA Not Reportable 02/06/20 07:19 Large Platelets Not Reportable 02/06/20 07:19 Giant Platelets Not Reportable 02/06/20 07:19 Platelet Satelliting Not Reportable 02/06/20 07:19 Plt Morphology Comment Not Reportable 02/06/20 07:19 RBC Morphology Not Reportable 02/06/20 07:19 Dimorphic RBCs Not Reportable 02/06/20 07:19 Polychromasia Not Reportable 02/06/20 07:19 Hypochromasia 1+ 02/06/20 07:19 Poikilocytosis Not Reportable 02/06/20 07:19 Anisocytosis Few 02/06/20 07:19 Microcytosis Few 02/06/20 07:19 Macrocytosis Not Reportable 02/06/20 07:19 Spherocytes Not Reportable 02/06/20 07:19 Pappenheimer Bodies Not Reportable 02/06/20 07:19 Sickle Cells Not Reportable 02/06/20 07:19 Target Cells Not Reportable 02/06/20 07:19 Tear Drop Cells Not Reportable 02/06/20 07:19 Ovalocytes Not Reportable 02/06/20 07:19 Helmet Cells Not Reportable 02/06/20 07:19 [place] Bodies Not Reportable 02/06/20 07:19 [place] Rings Not Reportable 02/06/20 07:19 [place] Cells Not Reportable 02/06/20 07:19 Bite Cells Not Reportable 02/06/20 07:19 Crenated Cell Not Reportable 02/06/20 07:19 Elliptocytes Not Reportable 02/06/20 07:19 Acanthocytes (Spur) Not Reportable 02/06/20 07:19 Rouleaux Not Reportable 02/06/20 07:19 Hemoglobin C Crystals Not Reportable 02/06/20 07:19 Schistocytes Not Reportable 02/06/20 07:19 Malaria parasites Not Reportable 02/06/20 07:19 Vj Bodies Not Reportable 02/06/20 07:19 Hem Pathologist Commnt No 02/06/20 07:19 PT 14.5 Sec. (12.2-14.9) 01/31/20 10:32 INR 1.12 (0.87-1.13) 01/31/20 10:32 APTT 30.8 Sec. (24.2-36.6) 01/31/20 10:32 Sodium 131 mmol/L (137-145) L 02/06/20 07:19 Potassium 4.0 mmol/L (3.6-5.0) 02/06/20 07:19 Chloride 94.0 mmol/L (98-107) L 02/06/20 07:19 Carbon Dioxide 26 mmol/L (22-30) 02/06/20 07:19 Anion Gap 15 mmol/L 02/06/20 07:19 BUN 39 mg/dL (9-20) H 02/06/20 07:19 Creatinine 6.7 mg/dL (0.8-1.5) H 02/06/20 07:19 Estimated GFR 10 ml/min 02/06/20 07:19 BUN/Creatinine Ratio 6 % 02/06/20 07:19 Glucose 89 mg/dL (75-100) 02/06/20 07:19 Calcium 8.3 mg/dL (8.4-10.2) L 02/06/20 07:19 Phosphorus 6.10 mg/dL (2.5-4.5) H 02/06/20 07:19 Iron 43 ug/dL (49-181) L 02/02/20 13:39 TIBC 123 mcg/dL (250-450) L 02/02/20 13:39 % Saturation 34.96 % 02/02/20 13:39 Transferrin 117 mg/dl (180-329) L 02/02/20 13:39 Ferritin 657.4 ng/mL (13.0-400.0) H 02/02/20 13:39 Total Creatine Kinase 133 units/L (55-170) 01/31/20 10:41 CK-MB (CK-2) 3.0 ng/mL (0.0-4.0) 01/31/20 10:41 CK-MB (CK-2) Rel Index 2.2 (0-4) 01/31/20 10:41 Troponin T 0.036 ng/mL (0.00-0.029) H 01/31/20 10:41 NT-Pro-B Natriuret Pep > 90018 pg/mL (0-900) H 01/31/20 12:51 Triglycerides 109 mg/dL (2-149) 01/31/20 10:41 Cholesterol 102 mg/dL (50-199) 01/31/20 10:41 LDL Cholesterol Direct 41 mg/dL (50-130) L 01/31/20 10:41 HDL Cholesterol 53 mg/dL (40-59) 01/31/20 10:41 Cholesterol/HDL Ratio 1.92 % 01/31/20 10:41 Vitamin B12 481.3 pg/mL (211-911) 02/02/20 13:39 Folate 10.72 ng/mL (7.3-26.0) 02/02/20 13:39 TSH 1.840 mlU/mL (0.270-4.200) 01/31/20 10:32 Free T4 0.80 ng/dL (0.76-1.46) 01/31/20 10:32 PTH Intact 781.6 pg/mL (15-65) H 02/06/20 07:19 White/IV: Voiding Method Toilet IV Catheter Type [Right INT / Saline Lock Forearm] IV Catheter Type [Left INT / Saline Lock Antecubital] IV Catheter Type [Right VAS Cath Subclavian] Active Medications - Current Medications Current Medications: Generic Name Dose Route Start Last Admin Trade Name Freq PRN Reason Stop Dose Admin Acetaminophen 650 mg 01/31/20 12:43 02/04/20 21:13 Tylenol PO 650 mg Q4H PRN Administration Pain MILD(1-3)/Fever >100.5/TORIBIO Aspirin 81 mg 02/05/20 10:00 02/06/20 10:00 Baby Aspirin PO 81 mg QDAY WILL Administration Carvedilol 25 mg 02/04/20 22:00 02/06/20 10:01 Coreg PO 25 mg BID WILL Administration Diphenhydramine HCl 25 mg 02/01/20 01:38 02/06/20 10:03 Benadryl IV 25 mg Q6H PRN Administration Itching Folic Acid 1 mg 02/05/20 10:00 02/06/20 10:00 Folvite PO 1 mg QDAY WILL Administration Hydralazine HCl 20 mg 01/31/20 12:49 02/04/20 01:21 Apresoline IV 20 mg Q6HR PRN Administration Hypertension Hydralazine HCl 50 mg 01/31/20 22:00 02/06/20 05:22 Apresoline PO 50 mg Q8HR WILL Administration Sodium Chloride 100 mls @ 999 mls/hr 01/31/20 13:05 Nacl 0.9% IV EDIE PRN Hypotension Isosorbide Dinitrate 10 mg 02/04/20 22:00 02/06/20 10:05 Isordil PO 10 mg BID WILL Administration Levetiracetam 750 mg 02/04/20 22:00 02/06/20 10:00 Keppra PO 750 mg BID WILL Administration Losartan Potassium 50 mg 01/31/20 22:00 02/06/20 10:00 Cozaar PO 50 mg QDAY WILL Administration Nifedipine 30 mg 01/31/20 22:00 02/06/20 10:00 Procardia Xl PO 30 mg Q12HR WILL Administration Ondansetron HCl 4 mg 01/31/20 12:43 01/31/20 17:27 Zofran IV 4 mg Q8H PRN Administration Nausea And Vomiting Pravastatin Sodium 20 mg 02/04/20 22:00 02/05/20 22:11 Pravachol PO 20 mg QHS WILL Administration Sodium Chloride 10 ml 01/31/20 22:00 02/06/20 10:06 Sodium Chloride Flush Syringe 10 Ml IV 10 ml BID WILL Administration Sodium Chloride 10 ml 01/31/20 12:43 02/04/20 02:09 Sodium Chloride Flush Syringe 10 Ml IV 10 ml PRN PRN Administration LINE FLUSH Thiamine HCl 100 mg 02/05/20 10:00 02/06/20 10:00 Vitamin B-1 PO 100 mg QDAY WILL Administration
[2020-02-06] MEDS: PRAVASTATIN 20 MG TAB PO SCH (21:30)
[2020-02-07] MEDS: hydrALAZINE 25 MG TAB PO SCH ×2 (06:15→13:56)
[2020-02-07] MEDS: ISOSORBIDE DINITRATE 10 MG TAB PO SCH (10:00)
[2020-02-07] MEDS: NIFEdipine XL 30 MG TAB PO SCH (10:00)
[2020-02-07] MEDS: LOSARTAN 50 MG TAB PO SCH (10:00)
--- NOTE | 2020-02-07 10:19 | Progress Note ---
Assessment and Plan Assessment: * End stage renal disease * Accelerated hypertension * Uremia * Anemia secondary to ESRD * Medical noncompliance Plan: * Hemodialysis today - UF as tolerated * Continue MWF schedule * Continue antiHTN medications * Renal diet * Epogen TIW prn * Outpatient dialysis clinic placement in progress Subjective Date of service: 02/07/20 Interval history: Patient has no complaints today. Seen on HD. Objective - Vital Signs Vital signs: Vital Signs - 12hr 02/07/20 02/07/20 02/07/20 04:46 06:15 07:21 Temperature 97.9 F 97.9 F Pulse Rate 85 85 80 Respiratory 20 16 Rate Blood Pressure 137/92 137/92 134/85 O2 Sat by Pulse 97 98 Oximetry O2 Sat by Pulse Oximetry [ Throughout] 02/07/20 02/07/20 02/07/20 09:00 09:10 09:15 Temperature 98.3 F Pulse Rate 75 81 80 Respiratory 16 Rate Blood Pressure 140/78 143/82 144/81 O2 Sat by Pulse Oximetry O2 Sat by Pulse 99 Oximetry [ Throughout] 02/07/20 02/07/20 02/07/20 09:30 09:45 10:00 Temperature Pulse Rate 82 76 80 Respiratory Rate Blood Pressure 134/90 143/87 146/85 O2 Sat by Pulse Oximetry O2 Sat by Pulse Oximetry [ Throughout] 02/07/20 10:15 Temperature Pulse Rate 77 Respiratory Rate Blood Pressure 134/88 O2 Sat by Pulse Oximetry O2 Sat by Pulse Oximetry [ Throughout] - General Appearance General appearance: well-developed, well-nourished EENT: ATNC Respiratory: Present: Clear to Ascultation Cardiology: regular, S1S2 Integumentary: no rash, warm and dry Musculoskeletal: other (no edema) - Lab 02/06/20 07:19 02/06/20 07:19 Most recent lab results Calcium 8.3 mg/dL (8.4-10.2) L 02/06/20 07:19 Phosphorus 6.10 mg/dL (2.5-4.5) H 02/06/20 07:19 Medications & Allergies - Medications Allergies/Adverse Reactions: Allergies heparin Allergy (Verified 02/04/20 16:09) Anaphylaxis Home Medications: Home Medications Medication Instructions Recorded Confirmed Last Taken Type Epoetin [place] 10,000 Unit [Procrit] 10,000 unit SUB-Q EDIE vial 12/04/19 05/11/20 04/05/20 Rx Epoetin [place] 10,000 Unit [Procrit] 10,000 unit SUB-Q EDIE vial 09/19/19 02/07/20 01/02/20 Rx Famotidine [Pepcid] 40 mg PO QHS #30 tablet 12/05/19 02/07/20 Unknown Rx Apixaban [Eliquis starter pack] 5 mg PO BID #1 tab.ds.pk 12/21/19 02/07/20 01/09/20 11:49 Rx Acetaminophen [Acetaminophen TAB] 325 mg PO Q4H PRN #30 tablet 12/22/19 02/07/20 01/09/20 11:49 Rx Furosemide [Lasix TAB] 40 mg PO QDAY #30 tablet 12/22/19 02/07/20 Unknown Rx NIFEdipine XL [Procardia Xl] 60 mg PO QDAY #30 tablet 12/22/19 02/07/20 Unknown Rx Ondansetron [Zofran ODT TAB] 4 mg PO Q8HR #10 tab.rapdis 12/22/19 02/07/20 01/09/20 11:47 Rx Isosorbide Dinitrate [Isordil] 10 mg PO BID tablet 01/09/20 02/07/20 02/06/20 22:00 Rx 10 mg oxyCODONE /ACETAMINOPHEN [Percocet 1 tab PO Q6H PRN tablet 01/09/20 02/07/20 Unknown Rx 5/325 mg] Apixaban [Eliquis] 5 mg PO Q12HR #60 tablet 01/18/20 02/07/20 Unknown Rx Calcium Acetate [Phoslo] 1,334 mg PO TIDWM #90 capsule 01/18/20 02/07/20 Unknown Rx Apixaban [Eliquis] 5 mg PO BID #60 tablet 01/25/20 02/07/20 Unknown Rx Aspirin [Aspirin BABY CHEW TAB] 81 mg PO QDAY #30 tab.chew 01/25/20 02/07/20 Unknown Rx Folic Acid [Folvite] 1 mg PO QDAY #30 tablet 01/25/20 02/07/20 Unknown Rx Furosemide [Lasix TAB] 40 mg PO QDAY #30 tablet 01/25/20 02/07/20 Unknown Rx Isosorbide Dinitrate [Isordil] 10 mg PO BID #60 tablet 01/25/20 02/07/20 02/06/20 22:00 Rx 10 mg NIFEdipine XL [Procardia Xl] 60 mg PO QDAY #30 tablet 01/25/20 02/07/20 Unknown Rx Pravastatin [Pravachol] 20 mg PO QHS #30 tablet 01/25/20 02/07/20 02/06/20 Rx Thiamine [Vitamin B-1] 100 mg PO QDAY #30 tablet 01/25/20 02/07/20 Unknown Rx amLODIPine 10 mg PO QDAY #30 tablet 01/25/20 02/07/20 Unknown Rx carvediloL [Coreg] 25 mg PO BID #60 tablet 01/25/20 02/07/20 02/06/20 22:00 Rx 25 mg levETIRAcetam [Keppra TAB] 750 mg PO BID #60 tablet 01/25/20 02/07/20 02/06/20 22:00 Rx 750 mg Active Medications: Generic Name Dose Route Start Last Admin Trade Name Freq PRN Reason Stop Dose Admin Acetaminophen 650 mg 01/31/20 12:43 02/04/20 21:13 Tylenol PO 650 mg Q4H PRN Administration Pain MILD(1-3)/Fever >100.5/TORIBIO Aspirin 81 mg 02/05/20 10:00 02/06/20 10:00 Baby Aspirin PO 81 mg QDAY WILL Administration Carvedilol 25 mg 02/04/20 22:00 02/06/20 21:29 Coreg PO 25 mg BID WILL Administration Diphenhydramine HCl 25 mg 02/01/20 01:38 02/06/20 21:30 Benadryl IV 25 mg Q6H PRN Administration Itching Folic Acid 1 mg 02/05/20 10:00 02/06/20 10:00 Folvite PO 1 mg QDAY WILL Administration Hydralazine HCl 20 mg 01/31/20 12:49 02/04/20 01:21 Apresoline IV 20 mg Q6HR PRN Administration Hypertension Hydralazine HCl 50 mg 01/31/20 22:00 02/07/20 06:15 Apresoline PO 50 mg Q8HR WILL Administration Sodium Chloride 100 mls @ 999 mls/hr 01/31/20 13:05 Nacl 0.9% IV EDIE PRN Hypotension Isosorbide Dinitrate 10 mg 02/04/20 22:00 02/06/20 21:47 Isordil PO 10 mg BID WILL Administration Levetiracetam 750 mg 02/04/20 22:00 02/06/20 21:30 Keppra PO 750 mg BID WILL Administration Losartan Potassium 50 mg 01/31/20 22:00 02/06/20 10:00 Cozaar PO 50 mg QDAY WILL Administration Nifedipine 30 mg 01/31/20 22:00 02/06/20 21:30 Procardia Xl PO 30 mg Q12HR WILL Administration Ondansetron HCl 4 mg 01/31/20 12:43 01/31/20 17:27 Zofran IV 4 mg Q8H PRN Administration Nausea And Vomiting Pravastatin Sodium 20 mg 02/04/20 22:00 02/06/20 21:30 Pravachol PO 20 mg QHS WILL Administration Sodium Chloride 10 ml 01/31/20 22:00 02/06/20 21:31 Sodium Chloride Flush Syringe 10 Ml IV 10 ml BID WILL Administration Sodium Chloride 10 ml 01/31/20 12:43 02/04/20 02:09 Sodium Chloride Flush Syringe 10 Ml IV 10 ml PRN PRN Administration LINE FLUSH Thiamine HCl 100 mg 02/05/20 10:00 02/06/20 10:00 Vitamin B-1 PO 100 mg QDAY WILL Administration
[2020-02-07] MEDS ORDERED: diphenhydrAMINE 50 MG/ML VIAL ONE (11:36)
[2020-02-07] MEDS: diphenhydrAMINE 50 MG/ML VIAL IV PRN (11:37)
[2020-02-07] MEDS: ASPIRIN 81 MG TAB CHEW PO SCH (13:56)
[2020-02-07] MEDS: levETIRAcetam 500 MG TAB PO SCH (13:56)
[2020-02-07] MEDS: carvediloL 25 MG TAB PO SCH (13:57)
[2020-02-07] MEDS: THIAMINE 100 MG TAB PO SCH (13:57)
[2020-02-07] MEDS: FOLIC ACID 1 MG TAB PO SCH (13:57)
--- NOTE | 2020-02-07 15:51 | Discharge Summary ---
Providers - Providers Date of Admission: 02/01/20 13:44 Date of discharge: 02/07/20 Attending physician: ZINA PIÑA 01/31/20 11:59 Consult to Physician [CONS] Urgent Comment: Consulting Provider: BENJAMIN ELIAS Physician Instructions: Reason For Exam: ESRD Primary care physician: BALL WORKER Hospitalization Reason for admission: Noncompliance with hemodialysis/fluid overload shortness of breath Condition: Fair Procedures: Hemodialysis per schedule Hospital course: 59 YO Male with HTN, HLD, Seizure Disorder, Medication Noncompliance, OA , Nicotine Dependence, Cocaine Dependence, Systolic CHF(EF 25%), ESRD on HD with last dialysis session conducted 2 weeks ago admitted through emergency room for fluid overload, worsening edema, for hemodialysis Patient reports noncompliant with outpatient dialysis for 2 weeks. Patient found to have fluid overload, metabolic acidosis, and malignant hypertension with blood pressure of 226/145. Patient admitted to medical floor and treated with antihypertensive therapy, Nephrology consult stat dialysis and subsequently received HD per schedule Patient counseled importance of adhering to the treatment plan and complying with diet, dialysis, doctor's visits Patient verbalized understanding Patient symptoms significantly improved Meanwhile Case management tried to set him up for outpatient hemodialysis, however due to his h/o noncompliance No outpatient hemodialysis center accepted him for OP HD scheduling. Today patient is comfortable vital signs stable, physical exam unremarkable Cleared for discharge, and follow-up outpatient dialysis/[place]/[facility] Stable at discharge Discharge diagnosis: --Malignant hypertension Current Visit: Yes Status: Acute Well-controlled, continue current antihypertensives PRN hydralazine, -- End stage renal disease/on HD Current Visit: Yes Status: Acute Patient noncompliant with hemodialysis , HD per schedule due to his noncompliance patient was discharged from HD centers customer support manager/social media marketing specialist assisting with outpatient HD set up -- Acute on chronic systolic (congestive) heart failure Current Visit: No Status: Chronic Input output monitoring, fluid restriction Continue current management --Uremia Current Visit: Yes Status: Acute Hemodialysis dialysis as per schedule per renal team, --History of seizure disorder Current Visit: No Status: Chronic Seizure precautions, continue Keppra, supportive care. Do not drive --DVT prophylaxis Current Visit: Yes Status: Acute SCD to bilateral lower extremities while in bed Patient is allergic to Heparin. Discharge planning; patient was noncompliant with hemodialysis Multiple HD centers refused to schedule him for outpatient HD Case management tried many centers, unsuccessful Cleared for discharge, advised to go to to HD/[facility] Medically stable for discharge Disposition: DC-01 TO HOME OR SELFCARE Time spent for discharge: 32 min Core Measure Documentation - Palliative Care Palliative Care/ Comfort Measures: Not Applicable - Core Measures Any of the following diagnoses?: none Exam - Constitutional Vitals: Temp Pulse Resp BP Pulse Ox 99.4 F 81 16 147/90 99 02/07/20 13:15 02/07/20 13:15 02/07/20 13:15 02/07/20 13:15 02/07/20 09:00 General appearance: Present: no acute distress, well-nourished - EENT Eyes: Present: PERRL, EOM intact - Neck Neck: Present: supple, normal ROM - Respiratory Respiratory effort: normal Respiratory: bilateral: diminished, negative: rales, rhonchi, wheezing - Cardiovascular Rhythm: regular Heart Sounds: Present: S1 & S2 - Extremities Extremities: no ischemia, No edema - Abdominal General gastrointestinal: Present: soft, non-tender, non-distended, normal bowel sounds - Integumentary Integumentary: Present: clear, warm - Musculoskeletal Musculoskeletal: strength equal bilaterally - Psychiatric Psychiatric: appropriate mood/affect, cooperative - Neurologic Neurologic: CNII-XII intact, moves all extremities Plan Activity: no restrictions Diet: renal Additional Instructions: Follow nephrology/hemodialysis per schedule. Strongly advised to comply with hemodialysis, medications, follow-up visits Follow up with: PRIMARY MD MEG [Primary Care Provider] - 3-5 Days BENJAMIN ELIAS MD [Staff Physician] - 7 Days Prescriptions: RX: hydrALAZINE [Apresoline TAB] 50 mg PO Q8HR #90 tablet RX: Losartan [Cozaar] 50 mg PO QDAY #30 tablet
[2020-02-08 11:33] VITALS: BP 147/90
== END 2020-02-07 17:25 | disposition home or self-care (01) | DRG 291 ==
LOC: ED 09:50 → 4A 12:43 → OBSVTOIN 02-01 13:44
PROVIDERS: ADMIT Internal Medicine; ATTEND Internal Medicine
PROC: 5A1D70Z Performance of Urinary Filtration, Intermittent, Less than 6 Hours Per Day (ICD-10-PCS; principal; 2020-01-31)
PROC: 5A1D70Z Performance of Urinary Filtration, Intermittent, Less than 6 Hours Per Day (ICD-10-PCS; 2020-02-02)
PROC: 5A1D70Z Performance of Urinary Filtration, Intermittent, Less than 6 Hours Per Day (ICD-10-PCS; 2020-02-04)
PROC: 5A1D70Z Performance of Urinary Filtration, Intermittent, Less than 6 Hours Per Day (ICD-10-PCS; 2020-02-07)
DX: I13.2 Hypertensive heart and chronic kidney disease with heart failure and with stage 5 chronic kidney disease, or end stage renal disease (principal); N18.6 End stage renal disease; I50.23 Acute on chronic systolic (congestive) heart failure; F14.20 Cocaine dependence, uncomplicated; N25.81 Secondary hyperparathyroidism of renal origin; E87.2 Acidosis; E87.70 Fluid overload, unspecified; G40.909 Epilepsy, unspecified, not intractable, without status epilepticus; M19.90 Unspecified osteoarthritis, unspecified site; F17.200 Nicotine dependence, unspecified, uncomplicated; E78.5 Hyperlipidemia, unspecified; D63.1 Anemia in chronic kidney disease; J44.9 Chronic obstructive pulmonary disease, unspecified; F12.90 Cannabis use, unspecified, uncomplicated; Z91.15 Patient's noncompliance with renal dialysis; Z91.14 Patient's other noncompliance with medication regimen; Z79.82 Long term (current) use of aspirin; Z79.899 Other long term (current) drug therapy; Z82.49 Family history of ischemic heart disease and other diseases of the circulatory system; Z59.0 Homelessness
CPT/HCPCS: 36415; 80048; 80061; 82550; 82553; 82607; 82728; 82747; 83550; 83880; 83970; 84100; 84439; 84443; 84484; 85007; 85025; 85610; 85730; 93005; G0378; A9270-GY; J0360; J0690; J0885; J1200; J2405; J7030

== ENCOUNTER 2020-04-13 10:47 | Inpatient (IN) | payer OTHER ==
[2020-04-13] MEDS ORDERED: hydrALAZINE 20 MG/1 ML INJ IV ONE (11:18)
--- NOTE | 2020-04-13 11:47 | XRay Report ---
CHEST 1 VIEW INDICATION: sob. COMPARISON: 03/15/2020 FINDINGS: Support devices: Unchanged. Heart: Enlarged, unchanged. Lungs/Pleura: Interstitial opacities within both lungs are relatively stable. No significant effusion , no pneumothorax. IMPRESSION: 1. Interstitial opacities in both lungs are of uncertain chronicity. Pulmonary edema could have this appearance. Signer Name: Ellis Irving MD Signed: 04/13/2020 11:43 AM Workstation Name: [id number]
[2020-04-13 11:54] LABS: Basophils # (Auto) 0.1 K/mm3 (0.0-0.1); Basophils % (Auto) 0.8 % (0.0-1.8); Eosinophils # (Auto) 0.1 K/mm3 (0.0-0.4); Eosinophils % (Auto) 1.1 % (0.0-4.3); Hematocrit 24.4 % (35.5-45.6); Hemoglobin 7.9 gm/dl (11.8-15.2); Lymphocytes # (Auto) 0.6 K/mm3 (1.2-5.4); Lymphocytes % (Auto) 9.3 % (13.4-35.0); Mean Corpuscular HGB Conc 32 % (32-34); Mean Corpuscular Volume 99 fl (84-94); Monocytes # (Auto) 0.5 K/mm3 (0.0-0.8); Monocytes % (Auto) 8.2 % (0.0-7.3); Platelet Count 221 K/mm3 (140-440); Red Blood Count 2.46 M/mm3 (3.65-5.03); Red Cell Distribution Width 17.7 % (13.2-15.2)
--- NOTE | 2020-04-13 11:57 | Emergency Department Report ---
ED General Adult HPI - General Chief complaint: Medical Clearance Stated complaint: NEEDS DIALYSIS/ X 4 WEEKS Time Seen by Provider: 04/13/20 11:13 Source: EMS Mode of arrival: Stretcher Limitations: No Limitations - History of Present Illness Initial comments: 59-year-old male with history of hypertension, ESRD, presents to ED requesting dialysis. Patient reports generalized swelling, shortness of breath over the last couple of days. Patient is currently an inmate in the [facility] care home. Patient states he has been incarcerated x 2 days. Patient last dialyzed 1 month ago. He reports he does not have a rug touch up painter or assigned dialysis eva ter. Patient was given clonidine 0.1 mg prior to arrival by EMS. -: days(s) (3) Consistency: constant Improves with: none Worsens with: none Associated Symptoms: cough, shortness of breath. denies: chest pain, fever/chills, nausea/vomiting Treatments Prior to Arrival: other (clonidine) - Related Data Previous Rx's Medication Instructions Recorded Last Taken Type Epoetin Leandro 10,000 Unit [Procrit] 10,000 unit SUB-Q EDIE vial 09/01/19 01/02/20 Rx Acetaminophen [Acetaminophen TAB] 325 mg PO Q4H PRN #30 tablet 12/22/19 01/09/20 11:49 Rx Calcium Acetate [Phoslo] 1,334 mg PO TIDWM #90 capsule 01/18/20 Unknown Rx Folic Acid [Folvite] 1 mg PO QDAY #30 tablet 01/25/20 Unknown Rx Pravastatin [Pravachol] 20 mg PO QHS #30 tablet 01/25/20 02/06/20 Rx Thiamine [Vitamin B-1] 100 mg PO QDAY #30 tablet 01/25/20 Unknown Rx [place]-3 Fatty Acids/Fish Oil [Fish 2,000 mg PO BID #60 capsule 03/02/20 Unknown Rx Oil] traZODone [Desyrel] 50 mg PO QHS #30 tablet 03/02/20 Unknown Rx Apixaban [Eliquis] 5 mg PO Q12HR #60 tablet 03/03/20 Unknown Rx Aspirin [Aspirin BABY CHEW TAB] 81 mg PO QDAY #30 tab.chew 03/03/20 Unknown Rx Epoetin Leandro 20,000 Unit [Procrit] 20,000 unit IV EDIE PRN vial 03/03/20 Unknown Rx Furosemide [Lasix TAB] 40 mg PO QDAY #30 tablet 03/03/20 Unknown Rx Isosorbide Dinitrate [Isordil] 10 mg PO BID #60 tablet 03/03/20 Unknown Rx Losartan [Cozaar] 50 mg PO QDAY #30 tablet 03/03/20 Unknown Rx NIFEdipine XL [Procardia Xl] 60 mg PO QDAY #30 tablet 03/03/20 Unknown Rx carvediloL [Coreg] 25 mg PO BID #60 tablet 03/03/20 Unknown Rx hydrALAZINE [Apresoline TAB] 50 mg PO Q8HR #90 tablet 03/03/20 Unknown Rx levETIRAcetam [Keppra TAB] 750 mg PO BID #60 tablet 03/03/20 Unknown Rx levETIRAcetam [Keppra TAB] 750 mg PO BID #60 tablet 03/03/20 Unknown Rx Acetaminophen [Acetaminophen TAB] 650 mg PO Q4H PRN tablet 03/17/20 Unknown Rx Allergies Allergy/AdvReac Type Severity Reaction Status Date / Time heparin Allergy Anaphylaxis Verified 02/04/20 16:09 ED Review of Systems ROS: Stated complaint: NEEDS DIALYSIS/ X 4 WEEKS Other details as noted in HPI Comment: All other systems reviewed and negative Constitutional: denies: chills, fever Respiratory: cough, shortness of breath Cardiovascular: edema. denies: chest pain ED Past Medical Hx - Past Medical History Hx Hypertension: Yes Hx Heart Attack/AMI: (CHF, EF 25-30%) Hx Congestive Heart Failure: Yes Hx Diabetes: Yes Hx Renal Disease: Yes (On Dialysis) Hx Arthritis: Yes (knees) Hx Seizures: Yes (non-compliant with meds) Hx Asthma: No Hx COPD: Yes Additional medical history: non compliant with HD - Surgical History Additional Surgical History: rt chest permacath - Social History Smoking Status: Unknown if ever smoked - Medications Home Medications: Home Medications Medication Instructions Recorded Confirmed Last Taken Type Epoetin Leandro 10,000 Unit [Procrit] 10,000 unit SUB-Q EDIE vial 09/01/19 03/01/20 01/02/20 Rx Acetaminophen [Acetaminophen TAB] 325 mg PO Q4H PRN #30 tablet 12/22/19 02/29/20 01/09/20 11:49 Rx Calcium Acetate [Phoslo] 1,334 mg PO TIDWM #90 capsule 01/18/20 02/29/20 Unknown Rx Folic Acid [Folvite] 1 mg PO QDAY #30 tablet 01/25/20 02/29/20 Unknown Rx Pravastatin [Pravachol] 20 mg PO QHS #30 tablet 01/25/20 02/29/20 02/06/20 Rx Thiamine [Vitamin B-1] 100 mg PO QDAY #30 tablet 01/25/20 02/29/20 Unknown Rx [place]-3 Fatty Acids/Fish Oil [Fish 2,000 mg PO BID #60 capsule 03/02/20 Unknown Rx Oil] traZODone [Desyrel] 50 mg PO QHS #30 tablet 03/02/20 Unknown Rx Apixaban [Eliquis] 5 mg PO Q12HR #60 tablet 03/03/20 Unknown Rx Aspirin [Aspirin BABY CHEW TAB] 81 mg PO QDAY #30 tab.chew 03/03/20 Unknown Rx Epoetin Leandro 20,000 Unit [Procrit] 20,000 unit IV EDIE PRN vial 03/03/20 Unknown Rx Furosemide [Lasix TAB] 40 mg PO QDAY #30 tablet 03/03/20 Unknown Rx Isosorbide Dinitrate [Isordil] 10 mg PO BID #60 tablet 03/03/20 Unknown Rx Losartan [Cozaar] 50 mg PO QDAY #30 tablet 03/03/20 Unknown Rx NIFEdipine XL [Procardia Xl] 60 mg PO QDAY #30 tablet 03/03/20 Unknown Rx carvediloL [Coreg] 25 mg PO BID #60 tablet 03/03/20 Unknown Rx hydrALAZINE [Apresoline TAB] 50 mg PO Q8HR #90 tablet 03/03/20 Unknown Rx levETIRAcetam [Keppra TAB] 750 mg PO BID #60 tablet 03/03/20 Unknown Rx levETIRAcetam [Keppra TAB] 750 mg PO BID #60 tablet 03/03/20 Unknown Rx Acetaminophen [Acetaminophen TAB] 650 mg PO Q4H PRN tablet 03/17/20 Unknown Rx ED Physical Exam - General Limitations: No Limitations General appearance: alert - Head Head exam: Present: atraumatic, normocephalic - Eye Eye exam: Present: normal appearance, EOMI - ENT ENT exam: Present: mucous membranes moist - Neck Neck exam: Present: normal inspection - Respiratory Respiratory exam: Present: rales - Cardiovascular Cardiovascular Exam: Present: regular rate, normal rhythm - GI/Abdominal GI/Abdominal exam: Present: soft. Absent: distended, tenderness - Extremities Exam Extremities exam: Present: other (2+ edema BLE) - Neurological Exam Neurological exam: Present: alert, oriented X3 - Psychiatric Psychiatric exam: Present: normal affect, normal mood - Skin Skin exam: Present: warm, dry, intact, normal color ED Course Vital Signs 04/13/20 04/13/20 11:06 11:13 Temperature 97.5 F L Pulse Rate 86 Respiratory 20 22 Rate Blood Pressure 225/140 O2 Sat by Pulse 99 99 Oximetry - Consultations Consultation #1: 04/13/20 12:12 Spoke w/ Dr Agosto. Will arrange dialysis. ED Medical Decision Making - Lab Data Result diagrams: 04/13/20 11:23 04/13/20 11:23 - EKG Data -: EKG Interpreted by Me EKG shows normal: sinus rhythm, intervals, QRS complexes Rate: normal - EKG Data Interpretation: no acute changes, other (lateral T wave inversions; old anteroseptal infarct) - Radiology Data Radiology results: report reviewed, image reviewed - Medical Decision Making 59 yo M noncompliant w/ dialysis. Potassium of 6.7, pulm edema on CXR. Pt given insulin, D50, albuterol, calcium gluconate, kayexalate. BP also elevated, hydralazine given. Spoke w/ rug touch up painter to arrange emergent dialysis. Pt will be admitted to hospitalist for further management. - Differential Diagnosis pulm edema, hyperkalemia Critical care time in (mins) excluding proc time.: 35 Critical care attestation.: If time is entered above; I have spent that time in minutes in the direct care of this critically ill patient, excluding procedure time. Critical Care Time: 35 min ED Disposition Clinical Impression: ESRD needing dialysis, Hypertensive emergency, Pulmonary edema, Hyperkalemia Disposition: OP ADMIT IP TO THIS HOSP Is pt being admited?: Yes Condition: Stable Time of Disposition: 12:08
[2020-04-13 12:03] LABS: Calcium 8.4 mg/dL (8.4-10.2)
[2020-04-13] MEDS ORDERED: DEXTROSE 50% IN WATER (25GM) 50 ML SYRINGE IV ONE (12:05)
[2020-04-13] MEDS ORDERED: INSULIN REGULAR, HUMAN 100 UNITS/1 ML IV ONE (12:05)
[2020-04-13] MEDS ORDERED: ALBUTEROL 2.5 MG/3 ML NEBU IH ONE (12:06)
[2020-04-13] MEDS ORDERED: SODIUM POLYSTYRENE 15 GM/60 ML ORAL LIQD PO ONE (12:11)
[2020-04-13] MEDS ORDERED: cloNIDine 0.2 MG TAB PO ONE (12:46)
[2020-04-13] MEDS ORDERED: CALCIUM GLUCONATE 1,000 MG in SODIUM CHLORIDE 0.9% 100 ML IV ONE (13:00)
[2020-04-13] MEDS ORDERED: ACETAMINOPHEN 325 MG TAB PO PRN (13:22)
--- NOTE | 2020-04-13 13:22 | Consultation ---
History of Present Illness - Reason for Consult Consult date: 04/13/20 end stage renal disease - History of Present Illness patient with ESRD started on HD in 07/2018, last HD treatment was 4 weeks ago, he presented to the ER for worsening SOB, was found to have hyperkalemia. renal consult was requested for HD Past History Past Medical History: ESRD Medications and Allergies Allergies Allergy/AdvReac Type Severity Reaction Status Date / Time heparin Allergy Anaphylaxis Verified 02/04/20 16:09 Home Medications Medication Instructions Recorded Confirmed Last Taken Type Epoetin Leandro 10,000 Unit [Procrit] 10,000 unit SUB-Q EDIE vial 09/01/19 03/01/20 01/02/20 Rx Acetaminophen [Acetaminophen TAB] 325 mg PO Q4H PRN #30 tablet 12/22/19 02/29/20 01/09/20 11:49 Rx Calcium Acetate [Phoslo] 1,334 mg PO TIDWM #90 capsule 01/18/20 02/29/20 Unknown Rx Folic Acid [Folvite] 1 mg PO QDAY #30 tablet 01/25/20 02/29/20 Unknown Rx Pravastatin [Pravachol] 20 mg PO QHS #30 tablet 01/25/20 02/29/20 02/06/20 Rx Thiamine [Vitamin B-1] 100 mg PO QDAY #30 tablet 01/25/20 02/29/20 Unknown Rx [place]-3 Fatty Acids/Fish Oil [Fish 2,000 mg PO BID #60 capsule 03/02/20 Unknown Rx Oil] traZODone [Desyrel] 50 mg PO QHS #30 tablet 03/02/20 Unknown Rx Apixaban [Eliquis] 5 mg PO Q12HR #60 tablet 03/03/20 Unknown Rx Aspirin [Aspirin BABY CHEW TAB] 81 mg PO QDAY #30 tab.chew 03/03/20 Unknown Rx Epoetin Leandro 20,000 Unit [Procrit] 20,000 unit IV EDIE PRN vial 03/03/20 Unknown Rx Furosemide [Lasix TAB] 40 mg PO QDAY #30 tablet 03/03/20 Unknown Rx Isosorbide Dinitrate [Isordil] 10 mg PO BID #60 tablet 03/03/20 Unknown Rx Losartan [Cozaar] 50 mg PO QDAY #30 tablet 03/03/20 Unknown Rx NIFEdipine XL [Procardia Xl] 60 mg PO QDAY #30 tablet 03/03/20 Unknown Rx carvediloL [Coreg] 25 mg PO BID #60 tablet 03/03/20 Unknown Rx hydrALAZINE [Apresoline TAB] 50 mg PO Q8HR #90 tablet 03/03/20 Unknown Rx levETIRAcetam [Keppra TAB] 750 mg PO BID #60 tablet 03/03/20 Unknown Rx levETIRAcetam [Keppra TAB] 750 mg PO BID #60 tablet 03/03/20 Unknown Rx Acetaminophen [Acetaminophen TAB] 650 mg PO Q4H PRN tablet 03/17/20 Unknown Rx Review of Systems All systems: negative (SOB) Exam - Vital Signs Vital signs: Vital Signs Temp Pulse Resp BP Pulse Ox 97.5 F L 86 20 225/140 99 04/13/20 11:06 04/13/20 11:06 04/13/20 11:06 04/13/20 11:06 04/13/20 11:06 - General Appearance General appearance: well-developed, well-nourished EENT: ATNC, PERRL, mucous membranes moist Neck: Present: neck supple Respiratory: Decreased Breath Sounds Heart: regular, S1S2 Gastrointestinal: Present: normoactive bowel sounds. Absent: hypoactive bowel sounds, absent bowel sounds, tenderness, distended Integumentary: no rash, warm and dry Neurologic: no focal deficit, no asterixis, alert and oriented x3 Musculoskeletal: Present: other (trace pitting edema in BLE) Psychiatric: cooperative Results - Lab Results 04/13/20 11:23 04/13/20 11:23 Most recent lab results Calcium 8.4 mg/dL (8.4-10.2) 04/13/20 11:23 Assessment and Plan ESRD on HD Hyperkalemia anemia in CKD shortness of breath STAT HD today for clearance and volume removal, 1k for hour then 2 K for 2 hours ordered HD ordered again for tomorrow will assess HD needs daily renally dose meds strict I&O Daily weight Epogen with HD
--- NOTE | 2020-04-13 13:35 | History and Physical Report ---
History of Present Illness Date of examination: 04/13/20 Date of admission: 04/13/20 12:19 Chief complaint: Worsening shortness of breath for 3 days History of present illness: 59-year-old -[place] male with history of end-stage renal disease hopelessly noncompliant, last hemodialysis a month ago, brought in by police magistrate for worsening shortness of breath. He has been a prisoner for the past 2 days. He is awake and alert and mildly short of breath. He denies any cough, fever, chills, chest pain. He was noted to be in pulmonary edema from volume overload and also his blood pressure was severely elevated at 225/140, hyperkalemic and patient is being admitted for emergency hemodialysis as well as to control his blood pressure. Past History Past Medical History: anemia, ESRD, heart failure, hypertension, seizures Past Surgical History: No surgical history Social history: smoking, prescription drug abuse, other (History of cocaine use) Family history: hypertension Medications and Allergies Allergies Allergy/AdvReac Type Severity Reaction Status Date / Time heparin Allergy Anaphylaxis Verified 02/04/20 16:09 Home Medications Medication Instructions Recorded Confirmed Last Taken Type Epoetin Leandro 10,000 Unit [Procrit] 10,000 unit SUB-Q EDIE vial 09/01/19 03/01/20 01/02/20 Rx Acetaminophen [Acetaminophen TAB] 325 mg PO Q4H PRN #30 tablet 12/22/19 02/29/20 01/09/20 11:49 Rx Calcium Acetate [Phoslo] 1,334 mg PO TIDWM #90 capsule 01/18/20 02/29/20 Unknown Rx Folic Acid [Folvite] 1 mg PO QDAY #30 tablet 01/25/20 02/29/20 Unknown Rx Pravastatin [Pravachol] 20 mg PO QHS #30 tablet 01/25/20 02/29/20 02/06/20 Rx Thiamine [Vitamin B-1] 100 mg PO QDAY #30 tablet 01/25/20 02/29/20 Unknown Rx [place]-3 Fatty Acids/Fish Oil [Fish 2,000 mg PO BID #60 capsule 03/02/20 Unknown Rx Oil] traZODone [Desyrel] 50 mg PO QHS #30 tablet 03/02/20 Unknown Rx Apixaban [Eliquis] 5 mg PO Q12HR #60 tablet 03/03/20 Unknown Rx Aspirin [Aspirin BABY CHEW TAB] 81 mg PO QDAY #30 tab.chew 03/03/20 Unknown Rx Epoetin Leandro 20,000 Unit [Procrit] 20,000 unit IV EDIE PRN vial 03/03/20 Unknown Rx Furosemide [Lasix TAB] 40 mg PO QDAY #30 tablet 03/03/20 Unknown Rx Isosorbide Dinitrate [Isordil] 10 mg PO BID #60 tablet 03/03/20 Unknown Rx Losartan [Cozaar] 50 mg PO QDAY #30 tablet 03/03/20 Unknown Rx NIFEdipine XL [Procardia Xl] 60 mg PO QDAY #30 tablet 03/03/20 Unknown Rx carvediloL [Coreg] 25 mg PO BID #60 tablet 03/03/20 Unknown Rx hydrALAZINE [Apresoline TAB] 50 mg PO Q8HR #90 tablet 03/03/20 Unknown Rx levETIRAcetam [Keppra TAB] 750 mg PO BID #60 tablet 03/03/20 Unknown Rx levETIRAcetam [Keppra TAB] 750 mg PO BID #60 tablet 03/03/20 Unknown Rx Acetaminophen [Acetaminophen TAB] 650 mg PO Q4H PRN tablet 03/17/20 Unknown Rx Active Meds: Active Medications Acetaminophen (Tylenol) 650 mg PO Q6H PRN PRN Reason: Pain MILD(1-3)/Fever >100.5/TORIBIO Albuterol/Ipratropium (Duoneb *Not For Prn Use*) 1 ampul IH Q6HRT WILL Apixaban (Eliquis) 2.5 mg PO Q12HR WILL; Protocol Calcium Acetate (Phoslo) 1,334 mg PO TIDWM WILL Carvedilol (Coreg) 25 mg PO BID WILL Epoetin Leandro (Procrit) 10,000 unit IV EDIE WILL Folic Acid (Folvite) 1 mg PO QDAY WILL Furosemide (Lasix) 40 mg PO QDAY WILL Hydralazine HCl (Apresoline) 50 mg PO Q8HR WILL Isosorbide Dinitrate (Isordil) 10 mg PO BID WILL Levetiracetam (Keppra) 750 mg PO BID WILL Losartan Potassium (Cozaar) 50 mg PO QDAY WILL Nifedipine (Procardia Xl) 60 mg PO QDAY WILL Pravastatin Sodium (Pravachol) 20 mg PO QHS [facility] Sodium Chloride (Sodium Chloride Flush Syringe 10 Ml) 10 ml IV BID WILL Sodium Chloride (Sodium Chloride Flush Syringe 10 Ml) 10 ml IV PRN PRN PRN Reason: LINE FLUSH Review of Systems Constitutional: fatigue, weakness, no weight loss, no fever, no chills Ears, nose, mouth and throat: no nasal congestion, no sore throat, no headache Cardiovascular: shortness of breath, high blood pressure, no chest pain, no palpitations, no syncope Respiratory: shortness of breath, no cough Gastrointestinal: no abdominal pain, no nausea, no vomiting, no diarrhea, no constipation, no melena Genitourinary Male: no dysuria Rectal: no pain Musculoskeletal: no neck stiffness Integumentary: no rash Neurological: seizures, no head injury, no syncope, no headaches Psychiatric: no anxiety, no depression Exam - Constitutional Vitals: Temp Pulse Resp BP Pulse Ox 97.5 F L 86 22 225/140 99 04/13/20 11:06 04/13/20 11:06 04/13/20 11:13 04/13/20 11:06 04/13/20 11:13 General appearance: Present: mild distress - EENT Eyes: Present: PERRL, EOM intact ENT: hearing intact, clear oral mucosa - Neck Neck: Present: supple, normal ROM. Absent: masses or JVD - Respiratory Respiratory effort: normal Respiratory: bilateral: diminished, rales (Bilateral basal rails) - Cardiovascular Rhythm: regular Heart Sounds: Present: S1 & S2 - Extremities Extremity abnormal: edema (2+ bilateral leg edema) - Abdominal General gastrointestinal: Present: soft, non-tender Male genitourinary: Present: deferred - Rectal Rectal Exam: deferred - Integumentary Integumentary: Present: clear - Musculoskeletal Musculoskeletal: strength equal bilaterally, generalized weakness - Psychiatric Psychiatric: appropriate mood/affect - Neurologic Neurologic: no focal deficits Results - Labs CBC & Chem 7: 04/13/20 11:23 04/13/20 11:23 Labs: Abnormal lab results 04/13/20 04/13/20 04/13/20 Range/Units 11:23 11:23 11:23 RBC 2.46 L (3.65-5.03) M/mm3 Hgb 7.9 L (11.8-15.2) gm/dl Hct 24.4 L (35.5-45.6) % MCV 99 H (84-94) fl RDW 17.7 H (13.2-15.2) % Lymph % (Auto) 9.3 L (13.4-35.0) % [facility] % (Auto) 8.2 H (0.0-7.3) % Lymph # 0.6 L (1.2-5.4) K/mm3 Seg Neutrophils % 80.6 H (40.0-70.0) % Potassium 6.7 H* (3.6-5.0) mmol/L Chloride 109.9 H (98-107) mmol/L Carbon Dioxide 13 L (22-30) mmol/L BUN 87 H (9-20) mg/dL Creatinine 9.3 H (0.8-1.5) mg/dL NT-Pro-B Natriuret Pep 03044 H (0-900) pg/mL Assessment and Plan - Patient Problems (1) End-stage renal disease needing dialysis Current Visit: Yes Status: Chronic Plan to address problem: Long history of noncompliance with hemodialysis Nephrology consulted Patient to undergo hemodialysis as soon as possible Patient states that he was dismissed from hemodialysis center sometime ago and at present does not have a skirt trimmer or a hemodialysis chair Will request case supervisor to find a place for hemodialysis as an outpatient (2) Hyperkalemia Current Visit: Yes Status: Acute Plan to address problem: Secondary to end-stage renal disease and not having hemodialysis in a month Patient was given Kayexalate and insulin and sodium bicarb in the ED He is to undergo hemodialysis [facility] Monitor electrolytes (3) Hypertensive emergency Current Visit: Yes Status: Acute Plan to address problem: Blood pressure 225/140 Resume home medications (4) Pulmonary edema Current Visit: Yes Status: Acute Plan to address problem: Secondary to volume overload from noncompliance with hemodialysis (5) Acidosis, metabolic Current Visit: No Status: Chronic Plan to address problem: Secondary to ESRD (6) Seizure Current Visit: No Status: Chronic Plan to address problem: Continue Keppra 750 twice daily (7) Volume overload Current Visit: No Status: Acute Plan to address problem: Secondary to noncompliance with HD /ESRD
[2020-04-13] MEDS ORDERED: EPOETIN ALFA 2,000 UNIT/1 ML VIAL IV SCH (14:00)
[2020-04-13] MEDS ORDERED: IPRATROPIUM/ALBUTEROL SULFATE 3 ML AMPUL.NEB IH ONE (14:40)
[2020-04-13] MEDS: IPRATROPIUM/ALBUTEROL SULFATE 3 ML AMPUL.NEB IH SCH ×2 (14:48→21:00)
[2020-04-13] MEDS ORDERED: levETIRAcetam 500 MG TAB PO ONE ×2 (16:38→22:40)
[2020-04-13] MEDS ORDERED: hydrALAZINE 25 MG TAB ONE (16:39)
[2020-04-13] MEDS ORDERED: carvediloL 25 MG TAB ONE ×2 (16:39→22:35)
[2020-04-13] MEDS ORDERED: cloNIDine 0.2 MG TAB ONE (16:39)
[2020-04-13] MEDS: levETIRAcetam 500 MG TAB PO SCH ×2 (16:42→23:03)
[2020-04-13] MEDS: hydrALAZINE 25 MG TAB PO SCH ×2 (16:43→23:24)
[2020-04-13] MEDS: carvediloL 25 MG TAB PO SCH ×2 (16:44→23:02)
[2020-04-13] MEDS: ISOSORBIDE DINITRATE 10 MG TAB PO SCH ×2 (17:40→23:25)
[2020-04-13] MEDS ORDERED: hydrALAZINE 100 MG TAB ONE (22:35)
[2020-04-13] MEDS ORDERED: APIXABAN 5 MG TAB ONE (22:35)
[2020-04-13] MEDS: APIXABAN 5 MG TAB PO SCH (23:02)
[2020-04-13] MEDS: CALCIUM ACETATE 667 MG CAP PO SCH (23:24)
[2020-04-13] MEDS: PRAVASTATIN 20 MG TAB PO SCH (23:25)
[2020-04-14] MEDS ORDERED: ALBUTEROL 2.5 MG/3 ML NEBU IH PRN (01:56)
[2020-04-14 05:38] LABS: Hepatitis B Surface Antigen Non-Reactive (Negative); Hepatitis C Virus Antibody Non-Reactive (NonReactive)
[2020-04-14] MEDS: hydrALAZINE 25 MG TAB PO SCH ×3 (06:29→21:46)
[2020-04-14] MEDS: levETIRAcetam 500 MG TAB PO SCH ×2 (09:02→21:45)
[2020-04-14] MEDS: ISOSORBIDE DINITRATE 10 MG TAB PO SCH ×2 (09:03→21:47)
[2020-04-14] MEDS: CALCIUM ACETATE 667 MG CAP PO SCH ×3 (09:03→17:25)
[2020-04-14] MEDS: FOLIC ACID 1 MG TAB PO SCH (09:04)
[2020-04-14] MEDS: carvediloL 25 MG TAB PO SCH ×2 (09:04→21:47)
[2020-04-14] MEDS: APIXABAN 5 MG TAB PO SCH ×2 (09:04→21:47)
[2020-04-14] MEDS: NIFEdipine XL 60 MG TAB PO SCH (09:04)
[2020-04-14] MEDS: LOSARTAN 50 MG TAB PO SCH (09:05)
[2020-04-14] MEDS: FUROSEMIDE 40 MG TAB PO SCH (09:06)
--- NOTE | 2020-04-14 10:29 | Progress Note ---
Assessment and Plan ESRD on HD Hyperkalemia anemia in CKD shortness of breath HD again today for clearance and volume removal HD ordered again for tomorrow will assess HD needs daily renally dose meds strict I&O Daily weight Epogen with HD Subjective Date of service: 04/14/20 Principal diagnosis: ESRD on HD Interval history: seen during HD, tolerating Objective - Vital Signs Vital signs: Vital Signs - 12hr 04/13/20 04/13/20 04/13/20 22:30 22:41 22:51 Temperature Pulse Rate 77 74 79 Pulse Rate [ From Monitor] Respiratory 13 17 16 Rate Blood Pressure 148/83 148/83 148/83 O2 Sat by Pulse 99 97 100 Oximetry 04/13/20 04/13/20 04/13/20 23:00 23:11 23:21 Temperature Pulse Rate 80 78 78 Pulse Rate [ From Monitor] Respiratory 20 14 15 Rate Blood Pressure 141/88 141/88 141/88 O2 Sat by Pulse 100 98 99 Oximetry 04/13/20 04/13/20 04/13/20 23:30 23:41 23:56 Temperature 98.3 F Pulse Rate 82 78 Pulse Rate [ From Monitor] Respiratory 15 18 Rate Blood Pressure 134/85 134/85 O2 Sat by Pulse 96 99 Oximetry 04/13/20 04/14/20 04/14/20 23:58 00:00 00:01 Temperature Pulse Rate 75 72 73 Pulse Rate [ 72 From Monitor] Respiratory 16 16 Rate Blood Pressure 144/85 O2 Sat by Pulse 100 100 99 Oximetry 04/14/20 04/14/20 04/14/20 00:06 00:11 00:21 Temperature 98.1 F Pulse Rate 78 73 Pulse Rate [ From Monitor] Respiratory Rate Blood Pressure 144/85 144/85 O2 Sat by Pulse 100 99 Oximetry 04/14/20 04/14/20 04/14/20 00:31 00:41 00:51 Temperature Pulse Rate 72 70 69 Pulse Rate [ From Monitor] Respiratory Rate Blood Pressure 144/85 144/85 144/85 O2 Sat by Pulse 100 100 100 Oximetry 04/14/20 04/14/20 04/14/20 01:01 01:11 01:21 Temperature Pulse Rate 69 68 70 Pulse Rate [ From Monitor] Respiratory 15 15 18 Rate Blood Pressure 147/93 147/93 147/93 O2 Sat by Pulse 100 100 100 Oximetry 04/14/20 04/14/20 04/14/20 01:31 01:41 01:51 Temperature Pulse Rate 75 79 78 Pulse Rate [ From Monitor] Respiratory 15 18 16 Rate Blood Pressure 147/93 147/93 147/93 O2 Sat by Pulse 98 99 97 Oximetry 04/14/20 04/14/20 04/14/20 01:55 02:00 02:11 Temperature Pulse Rate 77 77 Pulse Rate [ From Monitor] Respiratory 13 16 Rate Blood Pressure 141/84 141/84 O2 Sat by Pulse 100 95 99 Oximetry 04/14/20 04/14/20 04/14/20 02:21 02:31 02:41 Temperature Pulse Rate 81 75 73 Pulse Rate [ From Monitor] Respiratory 21 18 13 Rate Blood Pressure 141/84 141/84 141/84 O2 Sat by Pulse 100 98 100 Oximetry 04/14/20 04/14/20 04/14/20 02:51 03:01 03:11 Temperature Pulse Rate 78 77 72 Pulse Rate [ From Monitor] Respiratory 14 15 13 Rate Blood Pressure 141/84 143/84 143/84 O2 Sat by Pulse 97 98 99 Oximetry 04/14/20 04/14/20 04/14/20 03:21 03:22 03:31 Temperature 97.9 F Pulse Rate 75 78 Pulse Rate [ From Monitor] Respiratory 15 14 Rate Blood Pressure 143/84 143/84 O2 Sat by Pulse 97 100 Oximetry 04/14/20 04/14/20 04/14/20 03:41 03:51 04:00 Temperature Pulse Rate 78 79 76 Pulse Rate [ 76 From Monitor] Respiratory 14 19 13 Rate Blood Pressure 143/84 143/84 141/78 O2 Sat by Pulse 99 100 100 Oximetry 04/14/20 04/14/20 04/14/20 04:11 04:21 04:31 Temperature Pulse Rate 76 77 76 Pulse Rate [ From Monitor] Respiratory 15 15 17 Rate Blood Pressure 141/78 141/78 141/78 O2 Sat by Pulse 99 100 100 Oximetry 04/14/20 04/14/20 04/14/20 04:41 04:51 05:01 Temperature Pulse Rate 81 78 80 Pulse Rate [ From Monitor] Respiratory 17 12 17 Rate Blood Pressure 141/78 141/78 166/87 O2 Sat by Pulse 99 97 98 Oximetry 04/14/20 04/14/20 04/14/20 05:11 05:21 05:31 Temperature Pulse Rate 71 73 76 Pulse Rate [ From Monitor] Respiratory 14 17 15 Rate Blood Pressure 166/87 166/87 166/87 O2 Sat by Pulse 100 99 Oximetry 04/14/20 04/14/20 04/14/20 05:41 05:51 06:00 Temperature Pulse Rate 71 85 79 Pulse Rate [ From Monitor] Respiratory 14 22 15 Rate Blood Pressure 166/87 166/87 156/104 O2 Sat by Pulse 100 99 100 Oximetry 04/14/20 04/14/20 04/14/20 06:11 06:21 06:29 Temperature Pulse Rate 79 76 83 Pulse Rate [ From Monitor] Respiratory 15 13 Rate Blood Pressure 156/104 156/104 156/104 O2 Sat by Pulse 98 100 Oximetry 04/14/20 04/14/20 04/14/20 06:31 06:41 06:51 Temperature Pulse Rate 87 73 82 Pulse Rate [ From Monitor] Respiratory 17 15 16 Rate Blood Pressure 156/104 156/104 156/104 O2 Sat by Pulse 99 100 100 Oximetry 04/14/20 04/14/20 04/14/20 07:00 07:01 07:11 Temperature 98.2 F Pulse Rate 71 83 Pulse Rate [ From Monitor] Respiratory 17 16 Rate Blood Pressure 156/104 156/104 O2 Sat by Pulse 100 100 Oximetry 04/14/20 04/14/20 04/14/20 09:03 09:04 09:05 Temperature Pulse Rate 81 80 Pulse Rate [ From Monitor] Respiratory Rate Blood Pressure 169/98 169/98 169/98 O2 Sat by Pulse Oximetry - General Appearance General appearance: well-developed, well-nourished EENT: ATNC, PERRL Neck: no carotid bruit Respiratory: Present: Decreased Breath Sounds Cardiology: regular, S1S2 Gastrointestinal: normoactive bowel sounds, no tenderness, no distended Integumentary: no rash, warm and dry Neurologic: no focal deficit, no asterixis, alert and oriented x3 Musculoskeletal: other (trace pitting edema in BLE) Psychiatric: cooperative - Lab 04/13/20 11:23 04/14/20 04:30 Most recent lab results Calcium 8.0 mg/dL (8.4-10.2) L 04/14/20 04:30 Medications & Allergies - Medications Allergies/Adverse Reactions: Allergies heparin Allergy (Verified 02/04/20 16:09) Anaphylaxis Home Medications: Home Medications Medication Instructions Recorded Confirmed Last Taken Type Epoetin Leandro 10,000 Unit [Procrit] 10,000 unit SUB-Q EDIE vial 09/01/19 03/01/20 01/02/20 Rx Acetaminophen [Acetaminophen TAB] 325 mg PO Q4H PRN #30 tablet 12/22/19 02/29/20 01/09/20 11:49 Rx Calcium Acetate [Phoslo] 1,334 mg PO TIDWM #90 capsule 01/18/20 02/29/20 Unknown Rx Folic Acid [Folvite] 1 mg PO QDAY #30 tablet 01/25/20 02/29/20 Unknown Rx Pravastatin [Pravachol] 20 mg PO QHS #30 tablet 01/25/20 02/29/20 02/06/20 Rx Thiamine [Vitamin B-1] 100 mg PO QDAY #30 tablet 01/25/20 02/29/20 Unknown Rx Thompson-3 Fatty Acids/Fish Oil [Fish 2,000 mg PO BID #60 capsule 03/02/20 Unknown Rx Oil] traZODone [Desyrel] 50 mg PO QHS #30 tablet 03/02/20 Unknown Rx Apixaban [Eliquis] 5 mg PO Q12HR #60 tablet 03/03/20 Unknown Rx Aspirin [Aspirin BABY CHEW TAB] 81 mg PO QDAY #30 tab.chew 03/03/20 Unknown Rx Epoetin Leandro 20,000 Unit [Procrit] 20,000 unit IV EDIE PRN vial 03/03/20 Unknown Rx Furosemide [Lasix TAB] 40 mg PO QDAY #30 tablet 03/03/20 Unknown Rx Isosorbide Dinitrate [Isordil] 10 mg PO BID #60 tablet 03/03/20 Unknown Rx Losartan [Cozaar] 50 mg PO QDAY #30 tablet 03/03/20 Unknown Rx NIFEdipine XL [Procardia Xl] 60 mg PO QDAY #30 tablet 03/03/20 Unknown Rx carvediloL [Coreg] 25 mg PO BID #60 tablet 03/03/20 Unknown Rx hydrALAZINE [Apresoline TAB] 50 mg PO Q8HR #90 tablet 03/03/20 Unknown Rx levETIRAcetam [Keppra TAB] 750 mg PO BID #60 tablet 03/03/20 Unknown Rx levETIRAcetam [Keppra TAB] 750 mg PO BID #60 tablet 03/03/20 Unknown Rx Acetaminophen [Acetaminophen TAB] 650 mg PO Q4H PRN tablet 03/17/20 Unknown Rx Active Medications: Generic Name Dose Route Start Last Admin Trade Name Freq PRN Reason Stop Dose Admin Acetaminophen 650 mg 04/13/20 13:22 Tylenol PO Q6H PRN Pain MILD(1-3)/Fever >100.5/TORBIIO Albuterol 2.5 mg 04/14/20 01:56 Proventil IH Q4HRT PRN Shortness Of Breath Apixaban 2.5 mg 04/13/20 22:00 04/14/20 09:04 Eliquis PO 2.5 mg Q12HR WILL Administration Protocol Calcium Acetate 1,334 mg 04/13/20 17:00 04/14/20 09:03 Phoslo PO 1,334 mg TIDWM WILL Administration Carvedilol 25 mg 04/13/20 14:00 04/14/20 09:04 Coreg PO 25 mg BID WILL Administration Epoetin Leandro 10,000 unit 04/13/20 14:00 Procrit IV EDIE WILL Folic Acid 1 mg 04/14/20 10:00 04/14/20 09:04 Folvite PO 1 mg QDAY WILL Administration Furosemide 40 mg 04/14/20 10:00 04/14/20 09:06 Lasix PO 40 mg QDAY WILL Administration Hydralazine HCl 50 mg 04/13/20 14:00 04/14/20 06:29 Apresoline PO 50 mg Q8HR WILL Administration Isosorbide Dinitrate 10 mg 04/13/20 14:00 04/14/20 09:03 Isordil PO 10 mg BID WILL Administration Levetiracetam 750 mg 04/13/20 14:00 04/14/20 09:02 Keppra PO 750 mg BID WILL Administration Losartan Potassium 50 mg 04/14/20 10:00 04/14/20 09:05 Cozaar PO 50 mg QDAY WILL Administration Nifedipine 60 mg 04/14/20 10:00 04/14/20 09:04 Procardia Xl PO 60 mg QDAY WILL Administration Pravastatin Sodium 20 mg 04/13/20 22:00 04/13/20 23:25 Pravachol PO 20 mg QHS WILL Administration Sodium Chloride 10 ml 04/13/20 22:00 04/13/20 23:25 Sodium Chloride Flush Syringe 10 Ml IV 10 ml BID WILL Administration Sodium Chloride 10 ml 04/13/20 13:22 Sodium Chloride Flush Syringe 10 Ml IV PRN PRN LINE FLUSH
--- NOTE | 2020-04-14 12:29 | Progress Note ---
Assessment and Plan - Patient Problems (1) End-stage renal disease needing dialysis Current Visit: Yes Status: Chronic (2) Hyperkalemia Current Visit: Yes Status: Acute (3) Hypertensive emergency Current Visit: Yes Status: Acute (4) Pulmonary edema Current Visit: Yes Status: Acute (5) Acidosis, metabolic Current Visit: No Status: Chronic (6) Seizure Current Visit: No Status: Chronic (7) Volume overload Current Visit: No Status: Acute Subjective Date of service: 04/14/20 Principal diagnosis: ESRD on HD Interval history: Assessment and Plan - Patient Problems (1) End-stage renal disease needing dialysis Current Visit: Yes Status: Chronic Plan to address problem: Long history of noncompliance with hemodialysis Nephrology consult note reviewed Status post emergency hemodialysis yesterday Hemodialysis to be continued today Patient states that he was dismissed from hemodialysis center sometime ago and at present does not have a artificial plastic eye maker or a hemodialysis chair Discussed with family independence case manager to find a place for hemodialysis as an outpatient (2) Hyperkalemia Current Visit: Yes Status: Acute Plan to address problem: Secondary to end-stage renal disease and not having hemodialysis in a month Resolved Monitor electrolytes (3) Hypertensive emergency Current Visit: Yes Status: Acute Plan to address problem: Blood pressure at admission 225/140 Improved Continue home medications (4) Pulmonary edema Current Visit: Yes Status: Acute Plan to address problem: Secondary to volume overload from noncompliance with hemodialysis Clinically a lot better He denies any shortness of breath (5) Acidosis, metabolic Current Visit: No Status: Chronic Plan to address problem: Secondary to ESRD Improved after hemodialysis (6) Seizure Current Visit: No Status: Chronic Plan to address problem: Continue Keppra 750 twice daily (7) Volume overload Current Visit: No Status: Acute Plan to address problem: Secondary to noncompliance with HD /ESRD 59-year-old [place] male admitted yesterday for volume overload/pulmonary edema from noncompliance with hemodialysis and severely elevated blood pressure He is alert and oriented and not in any distress today and states that his shortness of breath has significantly improved he denies any chest pain Or cough. He denies any fever or chills. Denies nausea vomiting with pain 04/14 Patient currently undergoing hemodialysis States he is feeling a lot better and his shortness of breath is improved Denies any chest pain or cough Lab results reviewed Objective - Constitutional Vitals: Vital Signs - 12hr 04/14/20 04/14/20 04/14/20 00:31 00:41 00:51 Temperature Pulse Rate 72 70 69 Pulse Rate [ From Monitor] Respiratory Rate Blood Pressure 144/85 144/85 144/85 O2 Sat by Pulse 100 100 100 Oximetry 04/14/20 04/14/20 04/14/20 01:01 01:11 01:21 Temperature Pulse Rate 69 68 70 Pulse Rate [ From Monitor] Respiratory 15 15 18 Rate Blood Pressure 147/93 147/93 147/93 O2 Sat by Pulse 100 100 100 Oximetry 04/14/20 04/14/20 04/14/20 01:31 01:41 01:51 Temperature Pulse Rate 75 79 78 Pulse Rate [ From Monitor] Respiratory 15 18 16 Rate Blood Pressure 147/93 147/93 147/93 O2 Sat by Pulse 98 99 97 Oximetry 04/14/20 04/14/20 04/14/20 01:55 02:00 02:11 Temperature Pulse Rate 77 77 Pulse Rate [ From Monitor] Respiratory 13 16 Rate Blood Pressure 141/84 141/84 O2 Sat by Pulse 100 95 99 Oximetry 04/14/20 04/14/20 04/14/20 02:21 02:31 02:41 Temperature Pulse Rate 81 75 73 Pulse Rate [ From Monitor] Respiratory 21 18 13 Rate Blood Pressure 141/84 141/84 141/84 O2 Sat by Pulse 100 98 100 Oximetry 04/14/20 04/14/20 04/14/20 02:51 03:01 03:11 Temperature Pulse Rate 78 77 72 Pulse Rate [ From Monitor] Respiratory 14 15 13 Rate Blood Pressure 141/84 143/84 143/84 O2 Sat by Pulse 97 98 99 Oximetry 04/14/20 04/14/20 04/14/20 03:21 03:22 03:31 Temperature 97.9 F Pulse Rate 75 78 Pulse Rate [ From Monitor] Respiratory 15 14 Rate Blood Pressure 143/84 143/84 O2 Sat by Pulse 97 100 Oximetry 04/14/20 04/14/20 04/14/20 03:41 03:51 04:00 Temperature Pulse Rate 78 79 76 Pulse Rate [ 76 From Monitor] Respiratory 14 19 13 Rate Blood Pressure 143/84 143/84 141/78 O2 Sat by Pulse 99 100 100 Oximetry 04/14/20 04/14/20 04/14/20 04:11 04:21 04:31 Temperature Pulse Rate 76 77 76 Pulse Rate [ From Monitor] Respiratory 15 15 17 Rate Blood Pressure 141/78 141/78 141/78 O2 Sat by Pulse 99 100 100 Oximetry 04/14/20 04/14/20 04/14/20 04:41 04:51 05:01 Temperature Pulse Rate 81 78 80 Pulse Rate [ From Monitor] Respiratory 17 12 17 Rate Blood Pressure 141/78 141/78 166/87 O2 Sat by Pulse 99 97 98 Oximetry 04/14/20 04/14/20 04/14/20 05:11 05:21 05:31 Temperature Pulse Rate 71 73 76 Pulse Rate [ From Monitor] Respiratory 14 17 15 Rate Blood Pressure 166/87 166/87 166/87 O2 Sat by Pulse 100 99 Oximetry 04/14/20 04/14/20 04/14/20 05:41 05:51 06:00 Temperature Pulse Rate 71 85 79 Pulse Rate [ From Monitor] Respiratory 14 22 15 Rate Blood Pressure 166/87 166/87 156/104 O2 Sat by Pulse 100 99 100 Oximetry 04/14/20 04/14/20 04/14/20 06:11 06:21 06:29 Temperature Pulse Rate 79 76 83 Pulse Rate [ From Monitor] Respiratory 15 13 Rate Blood Pressure 156/104 156/104 156/104 O2 Sat by Pulse 98 100 Oximetry 04/14/20 04/14/20 04/14/20 06:31 06:41 06:51 Temperature Pulse Rate 87 73 82 Pulse Rate [ From Monitor] Respiratory 17 15 16 Rate Blood Pressure 156/104 156/104 156/104 O2 Sat by Pulse 99 100 100 Oximetry 04/14/20 04/14/20 04/14/20 07:00 07:01 07:11 Temperature 98.2 F Pulse Rate 71 83 Pulse Rate [ From Monitor] Respiratory 17 16 Rate Blood Pressure 156/104 156/104 O2 Sat by Pulse 100 100 Oximetry 04/14/20 04/14/20 04/14/20 09:03 09:04 09:05 Temperature Pulse Rate 81 80 Pulse Rate [ From Monitor] Respiratory Rate Blood Pressure 169/98 169/98 169/98 O2 Sat by Pulse Oximetry General appearance: Present: no acute distress - EENT Eyes: PERRL, EOM intact ENT: hearing intact, clear oral mucosa - Neck Neck: supple, normal ROM, no masses or JVD - Respiratory Respiratory effort: normal Respiratory: bilateral: CTA, negative: rales - Cardiovascular Rhythm: regular Heart Sounds: Present: S1 & S2 Extremity abnormal: edema (Trace bilateral leg edema) - Gastrointestinal General gastrointestinal: Present: soft, non-tender Rectal Exam: deferred - Genitourinary Male genitourinary: deferred - Integumentary Integumentary: clear - Musculoskeletal Musculoskeletal: strength equal bilaterally - Neurologic Neurologic: no focal deficits, moves all extremities - Labs CBC & Chem 7: 04/13/20 11:23 04/14/20 04:30 Labs: Abnormal lab results 04/13/20 04/14/20 Range/Units 11:23 04:30 BUN 48 H (9-20) mg/dL Creatinine 6.3 H (0.8-1.5) mg/dL Glucose 135 H (75-100) mg/dL Calcium 8.0 L (8.4-10.2) mg/dL NT-Pro-B Natriuret Pep 84264 H (0-900) pg/mL
[2020-04-14] MEDS ORDERED: EPOETIN ALFA 10,000 UNIT/1 ML INJ IV PRN (12:30)
[2020-04-14] MEDS: PRAVASTATIN 20 MG TAB PO SCH (21:49)
[2020-04-15 05:03] LABS: Hematocrit 22.8 % (35.5-45.6); Hemoglobin 7.6 gm/dl (11.8-15.2); Mean Corpuscular HGB Conc 33 % (32-34); Mean Corpuscular Volume 97 fl (84-94); Platelet Count 194 K/mm3 (140-440); Red Blood Count 2.35 M/mm3 (3.65-5.03); Red Cell Distribution Width 17.1 % (13.2-15.2)
[2020-04-15 05:22] LABS: Calcium 8.1 mg/dL (8.4-10.2)
[2020-04-15] MEDS: hydrALAZINE 25 MG TAB PO SCH ×3 (05:43→22:19)
[2020-04-15] MEDS: CALCIUM ACETATE 667 MG CAP PO SCH ×3 (08:55→16:29)
[2020-04-15] MEDS: APIXABAN 5 MG TAB PO SCH (09:21)
[2020-04-15] MEDS: levETIRAcetam 500 MG TAB PO SCH ×2 (09:21→22:19)
[2020-04-15] MEDS: FUROSEMIDE 40 MG TAB PO SCH (09:21)
[2020-04-15] MEDS: FOLIC ACID 1 MG TAB PO SCH (09:21)
[2020-04-15] MEDS: carvediloL 25 MG TAB PO SCH ×2 (09:22→22:18)
[2020-04-15] MEDS: LOSARTAN 50 MG TAB PO SCH (09:22)
[2020-04-15] MEDS: ISOSORBIDE DINITRATE 10 MG TAB PO SCH ×2 (09:23→22:18)
[2020-04-15] MEDS: NIFEdipine XL 60 MG TAB PO SCH (09:23)
--- NOTE | 2020-04-15 11:01 | Progress Note ---
Assessment and Plan ESRD on HD Hyperkalemia anemia in CKD shortness of breath s/p HD yesterday, HD again today. will assess HD needs daily renally dose meds strict I&O Daily weight Epogen with HD Subjective Date of service: 04/15/20 Principal diagnosis: ESRD on HD Objective - Exam Narrative Exam: General appearance: well-developed, well-nourished EENT: ATNC, PERRL Neck: no carotid bruit Respiratory: Present: Decreased Breath Sounds Cardiology: regular, S1S2 Gastrointestinal: normoactive bowel sounds, no tenderness, no distended Integumentary: no rash, warm and dry Neurologic: no focal deficit, no asterixis, alert and oriented x3 Musculoskeletal: other (trace pitting edema in BLE) Psychiatric: cooperative - Vital Signs Vital signs: Vital Signs - 12hr 04/14/20 04/15/20 04/15/20 23:47 00:00 03:40 Temperature 98.4 F 98.8 F Pulse Rate Pulse Rate [ 80 None] Respiratory 18 Rate Blood Pressure 121/70 Blood Pressure [Left] O2 Sat by Pulse Oximetry 04/15/20 04/15/20 04/15/20 04:00 09:22 09:23 Temperature Pulse Rate 80 78 78 Pulse Rate [ None] Respiratory 18 Rate Blood Pressure 161/99 161/99 Blood Pressure 143/87 [Left] O2 Sat by Pulse 99 Oximetry 04/15/20 04/15/20 04/15/20 09:55 10:00 10:15 Temperature 98.3 F Pulse Rate 92 H 79 75 Pulse Rate [ None] Respiratory 18 Rate Blood Pressure 172/98 169/103 172/102 Blood Pressure [Left] O2 Sat by Pulse Oximetry 04/15/20 04/15/20 10:30 10:45 Temperature Pulse Rate 78 73 Pulse Rate [ None] Respiratory Rate Blood Pressure 169/100 170/102 Blood Pressure [Left] O2 Sat by Pulse Oximetry - Lab 04/15/20 04:37 04/15/20 04:37 Most recent lab results Calcium 8.1 mg/dL (8.4-10.2) L 04/15/20 04:37 Medications & Allergies - Medications Allergies/Adverse Reactions: Allergies heparin Allergy (Verified 02/04/20 16:09) Anaphylaxis Home Medications: Home Medications Medication Instructions Recorded Confirmed Last Taken Type Epoetin Leandro 10,000 Unit [Procrit] 10,000 unit SUB-Q EDIE vial 09/01/19 03/01/20 01/02/20 Rx Acetaminophen [Acetaminophen TAB] 325 mg PO Q4H PRN #30 tablet 12/22/19 02/29/20 01/09/20 11:49 Rx Calcium Acetate [Phoslo] 1,334 mg PO TIDWM #90 capsule 01/18/20 02/29/20 Unknown Rx Folic Acid [Folvite] 1 mg PO QDAY #30 tablet 01/25/20 02/29/20 Unknown Rx Pravastatin [Pravachol] 20 mg PO QHS #30 tablet 01/25/20 02/29/20 02/06/20 Rx Thiamine [Vitamin B-1] 100 mg PO QDAY #30 tablet 01/25/20 02/29/20 Unknown Rx Lares-3 Fatty Acids/Fish Oil [Fish 2,000 mg PO BID #60 capsule 03/02/20 Unknown Rx Oil] traZODone [Desyrel] 50 mg PO QHS #30 tablet 03/02/20 Unknown Rx Apixaban [Eliquis] 5 mg PO Q12HR #60 tablet 03/03/20 Unknown Rx Aspirin [Aspirin BABY CHEW TAB] 81 mg PO QDAY #30 tab.chew 03/03/20 Unknown Rx Epoetin Leandro 20,000 Unit [Procrit] 20,000 unit IV EDIE PRN vial 03/03/20 Unknown Rx Furosemide [Lasix TAB] 40 mg PO QDAY #30 tablet 03/03/20 Unknown Rx Isosorbide Dinitrate [Isordil] 10 mg PO BID #60 tablet 03/03/20 Unknown Rx Losartan [Cozaar] 50 mg PO QDAY #30 tablet 03/03/20 Unknown Rx NIFEdipine XL [Procardia Xl] 60 mg PO QDAY #30 tablet 03/03/20 Unknown Rx carvediloL [Coreg] 25 mg PO BID #60 tablet 03/03/20 Unknown Rx hydrALAZINE [Apresoline TAB] 50 mg PO Q8HR #90 tablet 03/03/20 Unknown Rx levETIRAcetam [Keppra TAB] 750 mg PO BID #60 tablet 03/03/20 Unknown Rx levETIRAcetam [Keppra TAB] 750 mg PO BID #60 tablet 03/03/20 Unknown Rx Acetaminophen [Acetaminophen TAB] 650 mg PO Q4H PRN tablet 03/17/20 Unknown Rx Active Medications: Generic Name Dose Route Start Last Admin Trade Name Freq PRN Reason Stop Dose Admin Acetaminophen 650 mg 04/13/20 13:22 Tylenol PO Q6H PRN Pain MILD(1-3)/Fever >100.5/TORIBIO Albuterol 2.5 mg 04/14/20 01:56 Proventil IH Q4HRT PRN Shortness Of Breath Apixaban 2.5 mg 04/13/20 22:00 04/15/20 09:21 Eliquis PO 2.5 mg Q12HR WILL Administration Protocol Calcium Acetate 1,334 mg 04/13/20 17:00 04/15/20 08:55 Phoslo PO 1,334 mg TIDWM WILL Administration Carvedilol 25 mg 04/13/20 14:00 04/15/20 09:22 Coreg PO 25 mg BID WILL Administration Epoetin Leandro 10,000 unit 04/14/20 12:30 Procrit IV EDIE PRN hemodialysis Folic Acid 1 mg 04/14/20 10:00 04/15/20 09:21 Folvite PO 1 mg QDAY WILL Administration Furosemide 40 mg 04/14/20 10:00 04/15/20 09:21 Lasix PO 40 mg QDAY WILL Administration Hydralazine HCl 50 mg 04/13/20 14:00 04/15/20 05:43 Apresoline PO 50 mg Q8HR WILL Administration Isosorbide Dinitrate 10 mg 04/13/20 14:00 04/15/20 09:23 Isordil PO 10 mg BID WILL Administration Levetiracetam 750 mg 04/13/20 14:00 04/15/20 09:21 Keppra PO 750 mg BID WILL Administration Losartan Potassium 50 mg 04/14/20 10:00 04/15/20 09:22 Cozaar PO 50 mg QDAY WILL Administration Nifedipine 60 mg 04/14/20 10:00 04/15/20 09:23 Procardia Xl PO 60 mg QDAY WILL Administration Pravastatin Sodium 20 mg 04/13/20 22:00 04/14/20 21:49 Pravachol PO 20 mg QHS WILL Administration Sodium Chloride 10 ml 04/13/20 22:00 04/15/20 09:23 Sodium Chloride Flush Syringe 10 Ml IV 10 ml BID WILL Administration Sodium Chloride 10 ml 04/13/20 13:22 Sodium Chloride Flush Syringe 10 Ml IV PRN PRN LINE FLUSH
--- NOTE | 2020-04-15 17:33 | Progress Note ---
Assessment and Plan Assessment and plan: -- End-stage renal disease needing dialysis Current Visit: Yes Status: Chronic Noncompliance with hemodialysis Received HD yesterday and today Hemodialysis as needed daily per nephrology Patient does not have outpatient HD chair/or finance administrator Case management assisting with outpatient HD scheduling --Noncompliance; advised to comply with medications dialysis and follow-up visits --hyperkalemia; resent on admission Current Visit: Yes Status: Acute Resolved, HD per schedule --Hypertensive emergency; present on admission Current Visit: Yes Status: Acute Blood pressures moderate control Continue current antihypertensives and PRN medications -- Pulmonary edema/fluid overload Current Visit: Yes Status: Acute Secondary to noncompliance with hemodialysis Improved after hemodialysis --Acidosis, metabolic Current Visit: No Status: Chronic Secondary to ESRD Improved after hemodialysis --History of seizure Current Visit: No Status: Chronic Seizure precautions, continue Keppra [address] Closely monitor the patient and adjust management as needed Possible discharge in 1 to 2 days if stable History Interval history: I have seen and examined the patient at bedside[staff submarine warfare officer at the bedside] Patient's chart and medications reviewed Noncompliant with hemodialysis, received HD yesterday and today Nephrology following Patient feels better no new complaints Hospitalist Physical - Constitutional Vitals: Temp Pulse Resp BP Pulse Ox 98.1 F 84 18 177/107 98 04/15/20 16:00 04/15/20 14:42 04/15/20 13:10 04/15/20 14:42 04/15/20 10:00 General appearance: Present: no acute distress, well-nourished, obese - EENT Eyes: Present: PERRL, EOM intact - Neck Neck: Present: supple, normal ROM - Respiratory Respiratory effort: normal Respiratory: bilateral: diminished, rales, negative: rhonchi, wheezing - Cardiovascular Rhythm: regular Heart Sounds: Present: S1 & S2 - Extremities Extremities: no ischemia, No edema - Abdominal General gastrointestinal: soft, non-tender, non-distended, normal bowel sounds - Integumentary Integumentary: Present: clear, warm - Psychiatric Psychiatric: appropriate mood/affect, cooperative - Neurologic Neurologic: moves all extremities Results - Labs CBC & Chem 7: 04/15/20 04:37 04/15/20 04:37 Labs: Laboratory Last Values WBC 4.5 K/mm3 (4.5-11.0) 04/15/20 04:37 RBC 2.35 M/mm3 (3.65-5.03) L 04/15/20 04:37 Hgb 7.6 gm/dl (11.8-15.2) L 04/15/20 04:37 Hct 22.8 % (35.5-45.6) L 04/15/20 04:37 MCV 97 fl (84-94) H 04/15/20 04:37 MCH 32 pg (28-32) 04/15/20 04:37 MCHC 33 % (32-34) 04/15/20 04:37 RDW 17.1 % (13.2-15.2) H 04/15/20 04:37 Plt Count 194 K/mm3 (140-440) 04/15/20 04:37 Lymph % (Auto) 9.3 % (13.4-35.0) L 04/13/20 11:23 [place] % (Auto) 8.2 % (0.0-7.3) H 04/13/20 11:23 Eos % (Auto) 1.1 % (0.0-4.3) 04/13/20 11:23 Baso % (Auto) 0.8 % (0.0-1.8) 04/13/20 11:23 Lymph # 0.6 K/mm3 (1.2-5.4) L 04/13/20 11:23 [place] # 0.5 K/mm3 (0.0-0.8) 04/13/20 11:23 Eos # 0.1 K/mm3 (0.0-0.4) 04/13/20 11:23 Baso # 0.1 K/mm3 (0.0-0.1) 04/13/20 11:23 Seg Neutrophils % 80.6 % (40.0-70.0) H 04/13/20 11:23 Seg Neutrophils # 5.2 K/mm3 (1.8-7.7) 04/13/20 11:23 Sodium 141 mmol/L (137-145) 04/15/20 04:37 Potassium 4.2 mmol/L (3.6-5.0) 04/15/20 04:37 Chloride 102.9 mmol/L (98-107) 04/15/20 04:37 Carbon Dioxide 26 mmol/L (22-30) 04/15/20 04:37 Anion Gap 16 mmol/L 04/15/20 04:37 BUN 28 mg/dL (9-20) H 04/15/20 04:37 Creatinine 4.5 mg/dL (0.8-1.5) H 04/15/20 04:37 Estimated GFR 16 ml/min 04/15/20 04:37 BUN/Creatinine Ratio 6 % 04/15/20 04:37 Glucose 99 mg/dL (75-100) 04/15/20 04:37 Calcium 8.1 mg/dL (8.4-10.2) L 04/15/20 04:37 NT-Pro-B Natriuret Pep 35559 pg/mL (0-900) H 04/13/20 11:23 Nasal Screen MRSA (PCR) Negative (Negative) 04/14/20 13:50 Hepatitis A IgM Ab -1 (NonReactive) 04/14/20 04:30 Hep Bs Antigen Non-reactive (Negative) 04/14/20 04:30 Hep B Core IgM Ab Non-reactive (NonReactive) 04/14/20 04:30 Hepatitis C Antibody Non-reactive (NonReactive) 04/14/20 04:30 White/IV: Voiding Method Urinal IV Catheter Type [Right INT / Saline Lock Internal Jugular] Active Medications - Current Medications Current Medications: Generic Name Dose Route Start Last Admin Trade Name Freq PRN Reason Stop Dose Admin Acetaminophen 650 mg 04/13/20 13:22 Tylenol PO Q6H PRN Pain MILD(1-3)/Fever >100.5/TORIBIO Albuterol 2.5 mg 04/14/20 01:56 Proventil IH Q4HRT PRN Shortness Of Breath Apixaban 2.5 mg 04/15/20 22:00 Eliquis PO Q12HR WILL Protocol Calcium Acetate 1,334 mg 04/13/20 17:00 04/15/20 16:29 Phoslo PO 1,334 mg TIDWM WILL Administration Carvedilol 25 mg 04/13/20 14:00 04/15/20 09:22 Coreg PO 25 mg BID WILL Administration Epoetin Leandro 10,000 unit 04/14/20 12:30 04/15/20 11:35 Procrit IV 10,000 unit EDIE PRN Administration hemodialysis Folic Acid 1 mg 04/14/20 10:00 04/15/20 09:21 Folvite PO 1 mg QDAY WILL Administration Furosemide 40 mg 04/14/20 10:00 04/15/20 09:21 Lasix PO 40 mg QDAY WILL Administration Hydralazine HCl 50 mg 04/13/20 14:00 04/15/20 14:42 Apresoline PO 50 mg Q8HR WILL Administration Isosorbide Dinitrate 10 mg 04/13/20 14:00 04/15/20 09:23 Isordil PO 10 mg BID WILL Administration Levetiracetam 750 mg 04/13/20 14:00 04/15/20 09:21 Keppra PO 750 mg BID WILL Administration Losartan Potassium 50 mg 04/14/20 10:00 04/15/20 09:22 Cozaar PO 50 mg QDAY WILL Administration Nifedipine 60 mg 04/14/20 10:00 04/15/20 09:23 Procardia Xl PO 60 mg QDAY WILL Administration Pravastatin Sodium 20 mg 04/13/20 22:00 04/14/20 21:49 Pravachol PO 20 mg QHS WILL Administration Sodium Chloride 10 ml 04/13/20 22:00 04/15/20 09:23 Sodium Chloride Flush Syringe 10 Ml IV 10 ml BID WILL Administration Sodium Chloride 10 ml 04/13/20 13:22 Sodium Chloride Flush Syringe 10 Ml IV PRN PRN LINE FLUSH
[2020-04-15] MEDS: APIXABAN 2.5 MG TAB PO SCH (22:18)
[2020-04-15] MEDS: PRAVASTATIN 20 MG TAB PO SCH (22:18)
[2020-04-16] MEDS: hydrALAZINE 25 MG TAB PO SCH ×3 (05:37→23:50)
[2020-04-16 06:23] LABS: Calcium 8.2 mg/dL (8.4-10.2)
[2020-04-16] MEDS: CALCIUM ACETATE 667 MG CAP PO SCH ×3 (09:05→18:53)
[2020-04-16] MEDS: levETIRAcetam 500 MG TAB PO SCH ×2 (09:05→23:50)
[2020-04-16] MEDS: NIFEdipine XL 60 MG TAB PO SCH (09:05)
[2020-04-16] MEDS: FUROSEMIDE 40 MG TAB PO SCH (09:05)
[2020-04-16] MEDS: FOLIC ACID 1 MG TAB PO SCH (09:05)
[2020-04-16] MEDS: APIXABAN 2.5 MG TAB PO SCH ×2 (09:06→23:50)
[2020-04-16] MEDS: ISOSORBIDE DINITRATE 10 MG TAB PO SCH ×2 (09:06→23:50)
[2020-04-16] MEDS: carvediloL 25 MG TAB PO SCH ×2 (09:07→23:50)
[2020-04-16] MEDS: LOSARTAN 50 MG TAB PO SCH (09:07)
--- NOTE | 2020-04-16 10:22 | Progress Note ---
Assessment and Plan Assessment and plan: -- End-stage renal disease needing dialysis Current Visit: Yes Status: Chronic Noncompliance with hemodialysis Received HD yesterday and today Hemodialysis as needed daily per nephrology Patient does not have outpatient HD chair/or swimming instructor Case management assisting with outpatient HD scheduling --Noncompliance; advised to comply with medications dialysis and follow-up visits --hyperkalemia; resent on admission Current Visit: Yes Status: Acute Resolved, HD per schedule --Hypertensive emergency; present on admission Current Visit: Yes Status: Acute Blood pressures moderate control Continue current antihypertensives and PRN medications -- Pulmonary edema/fluid overload Current Visit: Yes Status: Acute Secondary to noncompliance with hemodialysis Improved after hemodialysis --Acidosis, metabolic Current Visit: No Status: Chronic Secondary to ESRD Improved after hemodialysis --History of seizure Current Visit: No Status: Chronic Seizure precautions, continue Keppra [address] Closely monitor the patient and adjust management as needed Possible discharge in 1 to 2 days if stable History Interval history: Patient seen and examined at bedside in IMCU patient's tests and medications reviewed No new complaints, Vital signs noted Hospitalist Physical - Constitutional Vitals: Temp Pulse Resp BP Pulse Ox 98.8 F 78 11 L 152/89 97 04/16/20 03:48 04/16/20 09:07 04/16/20 05:00 04/16/20 09:07 04/16/20 05:00 General appearance: Present: no acute distress, well-nourished - EENT Eyes: Present: PERRL, EOM intact - Neck Neck: Present: supple, normal ROM - Respiratory Respiratory effort: normal Respiratory: bilateral: diminished, rales, negative: rhonchi, wheezing - Cardiovascular Rhythm: regular Heart Sounds: Present: S1 & S2 - Extremities Extremities: no ischemia, No edema - Abdominal General gastrointestinal: soft, non-tender, non-distended, normal bowel sounds - Integumentary Integumentary: Present: clear, warm - Psychiatric Psychiatric: appropriate mood/affect, cooperative - Neurologic Neurologic: moves all extremities Results - Labs CBC & Chem 7: 04/15/20 04:37 04/16/20 05:19 Labs: Laboratory Last Values WBC 4.5 K/mm3 (4.5-11.0) 04/15/20 04:37 RBC 2.35 M/mm3 (3.65-5.03) L 04/15/20 04:37 Hgb 7.6 gm/dl (11.8-15.2) L 04/15/20 04:37 Hct 22.8 % (35.5-45.6) L 04/15/20 04:37 MCV 97 fl (84-94) H 04/15/20 04:37 MCH 32 pg (28-32) 04/15/20 04:37 MCHC 33 % (32-34) 04/15/20 04:37 RDW 17.1 % (13.2-15.2) H 04/15/20 04:37 Plt Count 194 K/mm3 (140-440) 04/15/20 04:37 Lymph % (Auto) 9.3 % (13.4-35.0) L 04/13/20 11:23 [place] % (Auto) 8.2 % (0.0-7.3) H 04/13/20 11:23 Eos % (Auto) 1.1 % (0.0-4.3) 04/13/20 11:23 Baso % (Auto) 0.8 % (0.0-1.8) 04/13/20 11:23 Lymph # 0.6 K/mm3 (1.2-5.4) L 04/13/20 11:23 [place] # 0.5 K/mm3 (0.0-0.8) 04/13/20 11:23 Eos # 0.1 K/mm3 (0.0-0.4) 04/13/20 11:23 Baso # 0.1 K/mm3 (0.0-0.1) 04/13/20 11:23 Seg Neutrophils % 80.6 % (40.0-70.0) H 04/13/20 11:23 Seg Neutrophils # 5.2 K/mm3 (1.8-7.7) 04/13/20 11:23 Sodium 138 mmol/L (137-145) 04/16/20 05:19 Potassium 3.6 mmol/L (3.6-5.0) 04/16/20 05:19 Chloride 100.0 mmol/L (98-107) 04/16/20 05:19 Carbon Dioxide 27 mmol/L (22-30) 04/16/20 05:19 Anion Gap 15 mmol/L 04/16/20 05:19 BUN 22 mg/dL (9-20) H 04/16/20 05:19 Creatinine 3.9 mg/dL (0.8-1.5) H 04/16/20 05:19 Estimated GFR 19 ml/min 04/16/20 05:19 BUN/Creatinine Ratio 6 % 04/16/20 05:19 Glucose 92 mg/dL (75-100) 04/16/20 05:19 Calcium 8.2 mg/dL (8.4-10.2) L 04/16/20 05:19 NT-Pro-B Natriuret Pep 56055 pg/mL (0-900) H 04/13/20 11:23 Nasal Screen MRSA (PCR) Negative (Negative) 04/14/20 13:50 Hepatitis A IgM Ab -1 (NonReactive) 04/14/20 04:30 Hep Bs Antigen Non-reactive (Negative) 04/14/20 04:30 Hep B Core IgM Ab Non-reactive (NonReactive) 04/14/20 04:30 Hepatitis C Antibody Non-reactive (NonReactive) 04/14/20 04:30 White/IV: Voiding Method Urinal IV Catheter Type [Right Perma Cath Subclavian] IV Catheter Type [Right INT / Saline Lock Internal Jugular] Active Medications - Current Medications Current Medications: Generic Name Dose Route Start Last Admin Trade Name Freq PRN Reason Stop Dose Admin Acetaminophen 650 mg 04/13/20 13:22 Tylenol PO Q6H PRN Pain MILD(1-3)/Fever >100.5/TORIBIO Albuterol 2.5 mg 04/14/20 01:56 Proventil IH Q4HRT PRN Shortness Of Breath Apixaban 2.5 mg 04/15/20 22:00 04/16/20 09:06 Eliquis PO 2.5 mg Q12HR WILL Administration Protocol Calcium Acetate 1,334 mg 04/13/20 17:00 04/16/20 09:05 Phoslo PO 1,334 mg TIDWM WILL Administration Carvedilol 25 mg 04/13/20 14:00 04/16/20 09:07 Coreg PO 25 mg BID WILL Administration Epoetin Leandro 10,000 unit 04/14/20 12:30 04/15/20 11:35 Procrit IV 10,000 unit EDIE PRN Administration hemodialysis Folic Acid 1 mg 04/14/20 10:00 04/16/20 09:05 Folvite PO 1 mg QDAY WILL Administration Furosemide 40 mg 04/14/20 10:00 04/16/20 09:05 Lasix PO 40 mg QDAY WILL Administration Hydralazine HCl 50 mg 04/13/20 14:00 04/16/20 05:37 Apresoline PO 50 mg Q8HR WILL Administration Isosorbide Dinitrate 10 mg 04/13/20 14:00 04/16/20 09:06 Isordil PO 10 mg BID WILL Administration Levetiracetam 750 mg 04/13/20 14:00 04/16/20 09:05 Keppra PO 750 mg BID WILL Administration Losartan Potassium 50 mg 04/14/20 10:00 04/16/20 09:07 Cozaar PO 50 mg QDAY WILL Administration Nifedipine 60 mg 04/14/20 10:00 04/16/20 09:05 Procardia Xl PO 60 mg QDAY WILL Administration Pravastatin Sodium 20 mg 04/13/20 22:00 04/15/20 22:18 Pravachol PO 20 mg QHS WILL Administration Sodium Chloride 10 ml 04/13/20 22:00 04/15/20 22:19 Sodium Chloride Flush Syringe 10 Ml IV 10 ml BID WILL Administration Sodium Chloride 10 ml 04/13/20 13:22 Sodium Chloride Flush Syringe 10 Ml IV PRN PRN LINE FLUSH
--- NOTE | 2020-04-16 11:02 | Progress Note ---
Assessment and Plan ESRD on HD Hyperkalemia anemia in CKD shortness of breath s/p HD yesterday, no HD today. will assess HD needs daily renally dose meds strict I&O Daily weight Epogen with HD Subjective Date of service: 04/16/20 Principal diagnosis: ESRD on HD Interval history: Tolerated HD yesterday. Objective - Exam Narrative Exam: General appearance: well-developed, well-nourished EENT: ATNC, PERRL Neck: no carotid bruit Respiratory: Present: Decreased Breath Sounds Cardiology: regular, S1S2 Gastrointestinal: normoactive bowel sounds, no tenderness, no distended Integumentary: no rash, warm and dry Neurologic: no focal deficit, no asterixis, alert and oriented x3 Musculoskeletal: other (trace pitting edema in BLE) Psychiatric: cooperative - Vital Signs Vital signs: Vital Signs - 12hr 04/16/20 04/16/20 04/16/20 00:00 00:01 01:01 Temperature 98.1 F Pulse Rate 71 77 Respiratory 15 14 Rate Blood Pressure 136/85 156/90 O2 Sat by Pulse 93 96 Oximetry 04/16/20 04/16/20 04/16/20 02:00 03:01 03:48 Temperature 98.8 F Pulse Rate 82 78 Respiratory 15 12 Rate Blood Pressure 133/77 144/81 O2 Sat by Pulse 94 96 Oximetry 04/16/20 04/16/20 04/16/20 04:00 05:00 09:06 Temperature Pulse Rate 81 78 77 Respiratory 13 11 L Rate Blood Pressure 134/74 141/89 152/89 O2 Sat by Pulse 97 97 Oximetry 04/16/20 09:07 Temperature Pulse Rate 78 Respiratory Rate Blood Pressure 152/89 O2 Sat by Pulse Oximetry - Lab 04/15/20 04:37 04/16/20 05:19 Most recent lab results Calcium 8.2 mg/dL (8.4-10.2) L 04/16/20 05:19 Medications & Allergies - Medications Allergies/Adverse Reactions: Allergies heparin Allergy (Verified 02/04/20 16:09) Anaphylaxis Home Medications: Home Medications Medication Instructions Recorded Confirmed Last Taken Type Epoetin Leandro 10,000 Unit [Procrit] 10,000 unit SUB-Q EDIE vial 09/01/19 03/01/20 01/02/20 Rx Acetaminophen [Acetaminophen TAB] 325 mg PO Q4H PRN #30 tablet 12/22/19 02/29/20 01/09/20 11:49 Rx Calcium Acetate [Phoslo] 1,334 mg PO TIDWM #90 capsule 01/18/20 02/29/20 Unknown Rx Folic Acid [Folvite] 1 mg PO QDAY #30 tablet 01/25/20 02/29/20 Unknown Rx Pravastatin [Pravachol] 20 mg PO QHS #30 tablet 01/25/20 02/29/20 02/06/20 Rx Thiamine [Vitamin B-1] 100 mg PO QDAY #30 tablet 01/25/20 02/29/20 Unknown Rx [place]-3 Fatty Acids/Fish Oil [Fish 2,000 mg PO BID #60 capsule 03/02/20 Unknown Rx Oil] traZODone [Desyrel] 50 mg PO QHS #30 tablet 03/02/20 Unknown Rx Apixaban [Eliquis] 5 mg PO Q12HR #60 tablet 03/03/20 Unknown Rx Aspirin [Aspirin BABY CHEW TAB] 81 mg PO QDAY #30 tab.chew 03/03/20 Unknown Rx Epoetin Leandro 20,000 Unit [Procrit] 20,000 unit IV EDIE PRN vial 03/03/20 Unk nown Rx Furosemide [Lasix TAB] 40 mg PO QDAY #30 tablet 03/03/20 Unknown Rx Isosorbide Dinitrate [Isordil] 10 mg PO BID #60 tablet 03/03/20 Unknown Rx Losartan [Cozaar] 50 mg PO QDAY #30 tablet 03/03/20 Unknown Rx NIFEdipine XL [Procardia Xl] 60 mg PO QDAY #30 tablet 03/03/20 Unknown Rx carvediloL [Coreg] 25 mg PO BID #60 tablet 03/03/20 Unknown Rx hydrALAZINE [Apresoline TAB] 50 mg PO Q8HR #90 tablet 03/03/20 Unknown Rx levETIRAcetam [Keppra TAB] 750 mg PO BID #60 tablet 03/03/20 Unknown Rx levETIRAcetam [Keppra TAB] 750 mg PO BID #60 tablet 03/03/20 Unknown Rx Acetaminophen [Acetaminophen TAB] 650 mg PO Q4H PRN tablet 03/17/20 Unknown Rx Active Medications: Generic Name Dose Route Start Last Admin Trade Name Freq PRN Reason Stop Dose Admin Acetaminophen 650 mg 07/16/20 13:22 Tylenol PO Q6H PRN Pain MILD(1-3)/Fever >100.5/TORIBIO Albuterol 2.5 mg 04/14/20 01:56 Proventil IH Q4HRT PRN Shortness Of Breath Apixaban 2.5 mg 04/15/20 22:00 04/16/20 09:06 Eliquis PO 2.5 mg Q12HR WILL Administration Protocol Calcium Acetate 1,334 mg 04/13/20 17:00 04/16/20 09:05 Phoslo PO 1,334 mg TIDWM WILL Administration Carvedilol 25 mg 04/13/20 14:00 04/16/20 09:07 Coreg PO 25 mg BID WILL Administration Epoetin Leandro 10,000 unit 04/14/20 12:30 04/15/20 11:35 Procrit IV 10,000 unit EDIE PRN Administration hemodialysis Folic Acid 1 mg 04/14/20 10:00 04/16/20 09:05 Folvite PO 1 mg QDAY WILL Administration Furosemide 40 mg 04/14/20 10:00 04/16/20 09:05 Lasix PO 40 mg QDAY WILL Administration Hydralazine HCl 50 mg 04/13/20 14:00 04/16/20 05:37 Apresoline PO 50 mg Q8HR WILL Administration Isosorbide Dinitrate 10 mg 04/13/20 14:00 04/16/20 09:06 Isordil PO 10 mg BID WILL Administration Levetiracetam 750 mg 04/13/20 14:00 04/16/20 09:05 Keppra PO 750 mg BID WILL Administration Losartan Potassium 50 mg 04/14/20 10:00 04/16/20 09:07 Cozaar PO 50 mg QDAY WILL Administration Nifedipine 60 mg 04/14/20 10:00 04/16/20 09:05 Procardia Xl PO 60 mg QDAY WILL Administration Pravastatin Sodium 20 mg 04/13/20 22:00 04/15/20 22:18 Pravachol PO 20 mg QHS WILL Administration Sodium Chloride 10 ml 04/13/20 22:00 04/15/20 22:19 Sodium Chloride Flush Syringe 10 Ml IV 10 ml BID WILL Administration Sodium Chloride 10 ml 04/13/20 13:22 Sodium Chloride Flush Syringe 10 Ml IV PRN PRN LINE FLUSH
--- NOTE | 2020-04-16 14:06 | Discharge Summary ---
Providers - Providers Date of Admission: 04/13/20 12:19 Date of discharge: 04/16/20 Attending physician: ZINA PIÑA 04/13/20 12:11 Consult to Physician [CONS] Stat Comment: SHE RAFAELA Mosley/DR ANTHONY @[id number] Consulting Provider: RAISA ANTHONY Physician Instructions: Reason For Exam: hyperkalemia, volume overload 04/13/20 13:47 Consult to Case Management [CONS] Routine Services Needed at Discharge: Other Additional Physician Instructions: Needs outpatient hemodialysis arrangements Primary care physician: OMAR WEAVER MD Hospitalization Condition: Stable Disposition: DC-30 STILL A PATIENT Exam - Constitutional Vitals: Temp Pulse Resp BP Pulse Ox 97.8 F 83 17 132/81 97 04/16/20 08:00 04/16/20 13:23 04/16/20 10:00 04/16/20 13:23 04/16/20 05:00 Plan Follow up with: OMAR WEAVER MD [Primary Care Provider] - 3-5 Days
[2020-04-16] MEDS: PRAVASTATIN 20 MG TAB PO SCH (23:50)
[2020-04-17] MEDS: hydrALAZINE 25 MG TAB PO SCH ×3 (06:35→22:00)
[2020-04-17 06:48] LABS: Calcium 8.6 mg/dL (8.4-10.2)
[2020-04-17] MEDS: LOSARTAN 50 MG TAB PO SCH (09:27)
[2020-04-17] MEDS: CALCIUM ACETATE 667 MG CAP PO SCH ×3 (09:27→19:03)
[2020-04-17] MEDS: APIXABAN 2.5 MG TAB PO SCH ×2 (09:27→22:00)
[2020-04-17] MEDS: FUROSEMIDE 40 MG TAB PO SCH (09:27)
[2020-04-17] MEDS: NIFEdipine XL 60 MG TAB PO SCH (09:27)
[2020-04-17] MEDS: FOLIC ACID 1 MG TAB PO SCH (09:28)
[2020-04-17] MEDS: carvediloL 25 MG TAB PO SCH ×2 (09:28→22:00)
[2020-04-17] MEDS: levETIRAcetam 500 MG TAB PO SCH ×2 (09:28→22:01)
--- NOTE | 2020-04-17 10:50 | Progress Note ---
Assessment and Plan Assessment and plan: --hyperkalemia; present on admission Current Visit: Yes Status: Acute Resolved, HD per schedule --Hypertensive emergency; present on admission Current Visit: Yes Status: Acute Blood pressures moderate control Continue current antihypertensives and PRN medications -- End-stage renal disease needing dialysis Current Visit: Yes Status: Chronic Noncompliance with hemodialysis Received HD yesterday and today Hemodialysis as needed daily per nephrology Patient does not have outpatient HD chair/or label fuser tender Case management assisting with outpatient HD scheduling --Noncompliance; advised to comply with medications dialysis and follow-up visits -- Pulmonary edema/fluid overload Current Visit: Yes Status: Acute Secondary to noncompliance with hemodialysis Improved after hemodialysis --Acidosis, metabolic Current Visit: No Status: Chronic Secondary to ESRD Improved after hemodialysis --History of seizure Current Visit: No Status: Chronic Seizure precautions, continue Keppra [address] Closely monitor the patient and adjust management as needed 04/17/20; patient received hemodialysis today, discussed with label fuser tender Day-to-day evaluation for the need for hemodialysis, will follow nephro recommendations History Interval history: I have seen and examined the patient at the bedside Patient has no new complaints, security control room officer at the bedside Patient is scheduled for hemodialysis today Vital signs noted Hospitalist Physical - Constitutional Vitals: Temp Pulse Resp BP Pulse Ox 97.9 F 78 18 138/78 97 04/17/20 08:37 04/17/20 09:27 04/17/20 08:43 04/17/20 09:27 04/17/20 08:43 General appearance: Present: no acute distress, well-nourished - EENT Eyes: Present: PERRL, EOM intact - Neck Neck: Present: supple, normal ROM - Respiratory Respiratory effort: normal Respiratory: bilateral: diminished, negative: rales, rhonchi, wheezing - Cardiovascular Rhythm: regular Heart Sounds: Present: S1 & S2 - Extremities Extremities: no ischemia, No edema - Abdominal General gastrointestinal: soft, non-tender, non-distended, normal bowel sounds - Integumentary Integumentary: Present: clear, warm - Psychiatric Psychiatric: appropriate mood/affect, cooperative - Neurologic Neurologic: CNII-XII intact, moves all extremities Results - Labs CBC & Chem 7: 04/15/20 04:37 04/17/20 05:25 Labs: Laboratory Last Values WBC 4.5 K/mm3 (4.5-11.0) 04/15/20 04:37 RBC 2.35 M/mm3 (3.65-5.03) L 04/15/20 04:37 Hgb 7.6 gm/dl (11.8-15.2) L 04/15/20 04:37 Hct 22.8 % (35.5-45.6) L 04/15/20 04:37 MCV 97 fl (84-94) H 04/15/20 04:37 MCH 32 pg (28-32) 04/15/20 04:37 MCHC 33 % (32-34) 04/15/20 04:37 RDW 17.1 % (13.2-15.2) H 04/15/20 04:37 Plt Count 194 K/mm3 (140-440) 04/15/20 04:37 Lymph % (Auto) 9.3 % (13.4-35.0) L 04/13/20 11:23 [place] % (Auto) 8.2 % (0.0-7.3) H 04/13/20 11:23 Eos % (Auto) 1.1 % (0.0-4.3) 04/13/20 11:23 Baso % (Auto) 0.8 % (0.0-1.8) 04/13/20 11:23 Lymph # 0.6 K/mm3 (1.2-5.4) L 04/13/20 11:23 [place] # 0.5 K/mm3 (0.0-0.8) 04/13/20 11:23 Eos # 0.1 K/mm3 (0.0-0.4) 04/13/20 11:23 Baso # 0.1 K/mm3 (0.0-0.1) 04/13/20 11:23 Seg Neutrophils % 80.6 % (40.0-70.0) H 04/13/20 11:23 Seg Neutrophils # 5.2 K/mm3 (1.8-7.7) 04/13/20 11:23 Sodium 142 mmol/L (137-145) 04/17/20 05:25 Potassium 3.9 mmol/L (3.6-5.0) 04/17/20 05:25 Chloride 103.9 mmol/L (98-107) 04/17/20 05:25 Carbon Dioxide 26 mmol/L (22-30) 04/17/20 05:25 Anion Gap 16 mmol/L 04/17/20 05:25 BUN 30 mg/dL (9-20) H 04/17/20 05:25 Creatinine 5.2 mg/dL (0.8-1.5) H 04/17/20 05:25 Estimated GFR 14 ml/min 04/17/20 05:25 BUN/Creatinine Ratio 6 % 04/17/20 05:25 Glucose 89 mg/dL (75-100) 04/17/20 05:25 Calcium 8.6 mg/dL (8.4-10.2) 04/17/20 05:25 NT-Pro-B Natriuret Pep 15812 pg/mL (0-900) H 04/13/20 11:23 Nasal Screen MRSA (PCR) Negative (Negative) 04/14/20 13:50 Hepatitis A IgM Ab -1 (NonReactive) 04/14/20 04:30 Hep Bs Antigen Non-reactive (Negative) 04/14/20 04:30 Hep B Core IgM Ab Non-reactive (NonReactive) 04/14/20 04:30 Hepatitis C Antibody Non-reactive (NonReactive) 04/14/20 04:30 White/IV: Voiding Method Urinal IV Catheter Type [Right Perma Cath Subclavian] IV Catheter Type [Right INT / Saline Lock Internal Jugular] Active Medications - Current Medications Current Medications: Generic Name Dose Route Start Last Admin Trade Name Freq PRN Reason Stop Dose Admin Acetaminophen 650 mg 04/13/20 13:22 Tylenol PO Q6H PRN Pain MILD(1-3)/Fever >100.5/TORIBIO Albuterol 2.5 mg 04/14/20 01:56 Proventil IH Q4HRT PRN Shortness Of Breath Apixaban 2.5 mg 04/15/20 22:00 04/17/20 09:27 Eliquis PO 2.5 mg Q12HR WILL Administration Protocol Calcium Acetate 1,334 mg 04/13/20 17:00 04/17/20 09:27 Phoslo PO 1,334 mg TIDWM WILL Administration Carvedilol 25 mg 04/13/20 14:00 04/17/20 09:28 Coreg PO 25 mg BID WILL Administration Epoetin Leandro 10,000 unit 04/14/20 12:30 04/15/20 11:35 Procrit IV 10,000 unit EDIE PRN Administration hemodialysis Folic Acid 1 mg 04/14/20 10:00 04/17/20 09:28 Folvite PO 1 mg QDAY WILL Administration Furosemide 40 mg 04/14/20 10:00 04/17/20 09:27 Lasix PO 40 mg QDAY WILL Administration Hydralazine HCl 50 mg 04/13/20 14:00 04/17/20 06:35 Apresoline PO 50 mg Q8HR WILL Administration Isosorbide Dinitrate 10 mg 04/13/20 14:00 04/16/20 23:50 Isordil PO Not Given BID WILL Levetiracetam 750 mg 04/13/20 14:00 04/17/20 09:28 Keppra PO 750 mg BID WILL Administration Losartan Potassium 50 mg 04/14/20 10:00 04/17/20 09:27 Cozaar PO 50 mg QDAY WILL Administration Nifedipine 60 mg 04/14/20 10:00 04/17/20 09:27 Procardia Xl PO 60 mg QDAY WILL Administration Pravastatin Sodium 20 mg 04/13/20 22:00 04/16/20 23:50 Pravachol PO 20 mg QHS WILL Administration Sodium Chloride 10 ml 04/13/20 22:00 04/17/20 09:29 Sodium Chloride Flush Syringe 10 Ml IV 10 ml BID WILL Administration Sodium Chloride 10 ml 04/13/20 13:22 Sodium Chloride Flush Syringe 10 Ml IV PRN PRN LINE FLUSH
[2020-04-17] MEDS: ISOSORBIDE DINITRATE 10 MG TAB PO SCH ×2 (12:00→22:00)
--- NOTE | 2020-04-17 15:17 | Progress Note ---
Assessment and Plan Assessment: ESRD on HD Hyperkalemia anemia in CKD Shortness of breath Plan: -Hemodialysis today for UF and clearance -Fluid restriction of 1 liter per day -Epogen with HD -Renally dose meds -Strict I&O -Daily weights -Assess dialysis needs daily Subjective Date of service: 04/17/20 Principal diagnosis: ESRD on HD Interval history: Patient off floor Objective - Vital Signs Vital signs: Vital Signs - 12hr 04/17/20 04/17/20 04/17/20 04:08 06:35 08:37 Temperature 98.0 F 97.9 F Pulse Rate 74 83 78 Respiratory 19 18 Rate Blood Pressure 135/73 135/73 138/78 O2 Sat by Pulse 100 96 Oximetry 04/17/20 04/17/20 04/17/20 08:43 09:27 11:56 Temperature 97.7 F Pulse Rate 78 79 Respiratory 18 18 Rate Blood Pressure 138/78 133/88 O2 Sat by Pulse 97 97 Oximetry - Lab 04/15/20 04:37 04/17/20 05:25 Most recent lab results Calcium 8.6 mg/dL (8.4-10.2) 04/17/20 05:25 Medications & Allergies - Medications Allergies/Adverse Reactions: Allergies heparin Allergy (Verified 02/04/20 16:09) Anaphylaxis Home Medications: Home Medications Medication Instructions Recorded Confirmed Last Taken Type Epoetin Leandro 10,000 Unit [Procrit] 10,000 unit SUB-Q EDIE vial 09/01/19 03/01/20 01/02/20 Rx Acetaminophen [Acetaminophen TAB] 325 mg PO Q4H PRN #30 tablet 12/22/19 02/29/20 01/09/20 11:49 Rx Calcium Acetate [Phoslo] 1,334 mg PO TIDWM #90 capsule 01/18/20 02/29/20 Unknown Rx Folic Acid [Folvite] 1 mg PO QDAY #30 tablet 01/25/20 02/29/20 Unknown Rx Pravastatin [Pravachol] 20 mg PO QHS #30 tablet 01/25/20 02/29/20 02/06/20 Rx Thiamine [Vitamin B-1] 100 mg PO QDAY #30 tablet 01/25/20 02/29/20 Unknown Rx [place]-3 Fatty Acids/Fish Oil [Fish 2,000 mg PO BID #60 capsule 03/02/20 Unknown Rx Oil] traZODone [Desyrel] 50 mg PO QHS #30 tablet 03/02/20 Unknown Rx Apixaban [Eliquis] 5 mg PO Q12HR #60 tablet 03/03/20 Unknown Rx Aspirin [Aspirin BABY CHEW TAB] 81 mg PO QDAY #30 tab.chew 03/03/20 Unknown Rx Epoetin Leandro 20,000 Unit [Procrit] 20,000 unit IV EDIE PRN vial 03/03/20 Unknown Rx Furosemide [Lasix TAB] 40 mg PO QDAY #30 tablet 03/03/20 Unknown Rx Isosorbide Dinitrate [Isordil] 10 mg PO BID #60 tablet 03/03/20 Unknown Rx Losartan [Cozaar] 50 mg PO QDAY #30 tablet 03/03/20 Unknown Rx NIFEdipine XL [Procardia Xl] 60 mg PO QDAY #30 tablet 03/03/20 Unknown Rx carvediloL [Coreg] 25 mg PO BID #60 tablet 03/03/20 Unknown Rx hydrALAZINE [Apresoline TAB] 50 mg PO Q8HR #90 tablet 03/03/20 Unknown Rx levETIRAcetam [Keppra TAB] 750 mg PO BID #60 tablet 03/03/20 Unknown Rx levETIRAcetam [Keppra TAB] 750 mg PO BID #60 tablet 03/03/20 Unknown Rx Acetaminophen [Acetaminophen TAB] 650 mg PO Q4H PRN tablet 03/17/20 Unknown Rx Active Medications: Generic Name Dose Route Start Last Admin Trade Name Freq PRN Reason Stop Dose Admin Acetaminophen 650 mg 04/13/20 13:22 Tylenol PO Q6H PRN Pain MILD(1-3)/Fever >100.5/TORIBIO Albuterol 2.5 mg 04/14/20 01:56 Proventil IH Q4HRT PRN Shortness Of Breath Apixaban 2.5 mg 04/15/20 22:00 04/17/20 09:27 Eliquis PO 2.5 mg Q12HR WILL Administration Protocol Calcium Acetate 1,334 mg 04/13/20 17:00 04/17/20 12:00 Phoslo PO 1,334 mg TIDWM WILL Administration Carvedilol 25 mg 04/13/20 14:00 04/17/20 09:28 Coreg PO 25 mg BID WILL Administration Epoetin Leandro 10,000 unit 04/14/20 12:30 04/15/20 11:35 Procrit IV 10,000 unit EDIE PRN Administration hemodialysis Folic Acid 1 mg 04/14/20 10:00 04/17/20 09:28 Folvite PO 1 mg QDAY WILL Administration Furosemide 40 mg 04/14/20 10:00 04/17/20 09:27 Lasix PO 40 mg QDAY WILL Administration Hydralazine HCl 50 mg 04/13/20 14:00 04/17/20 14:55 Apresoline PO Not Given Q8HR [facility] Isosorbide Dinitrate 10 mg 04/13/20 14:00 04/17/20 12:00 Isordil PO 10 mg BID WILL Administration Levetiracetam 750 mg 04/13/20 14:00 04/17/20 09:28 Keppra PO 750 mg BID WILL Administration Losartan Potassium 50 mg 04/14/20 10:00 04/17/20 09:27 Cozaar PO 50 mg QDAY WILL Administration Nifedipine 60 mg 04/14/20 10:00 04/17/20 09:27 Procardia Xl PO 60 mg QDAY WILL Administration Pravastatin Sodium 20 mg 04/13/20 22:00 04/16/20 23:50 Pravachol PO 20 mg QHS WILL Administration Sodium Chloride 10 ml 04/13/20 22:00 04/17/20 09:29 Sodium Chloride Flush Syringe 10 Ml IV 10 ml BID WILL Administration Sodium Chloride 10 ml 04/13/20 13:22 Sodium Chloride Flush Syringe 10 Ml IV PRN PRN LINE FLUSH
[2020-04-17] MEDS: PRAVASTATIN 20 MG TAB PO SCH (22:00)
[2020-04-18] MEDS: hydrALAZINE 25 MG TAB PO SCH ×2 (05:35→14:08)
[2020-04-18 06:42] LABS: Calcium 8.5 mg/dL (8.4-10.2)
--- NOTE | 2020-04-18 08:43 | Progress Note ---
Assessment and Plan Hyperkalemia anemia in CKD Shortness of breath Plan: - no indication for HD today -Fluid restriction of 1 liter per day -Epogen with HD -Renally dose meds -Strict I&O -Daily weights -Assess dialysis needs daily Subjective Date of service: 04/18/20 Principal diagnosis: ESRD on HD Interval history: tolerated HD yesterday Objective - Vital Signs Vital signs: Vital Signs - 12hr 04/17/20 04/18/20 04/18/20 23:00 03:54 04:00 Temperature 98.1 F 98.1 F Pulse Rate 78 79 Respiratory 16 17 17 Rate Blood Pressure 125/69 Blood Pressure 125/69 [Left] O2 Sat by Pulse 97 97 Oximetry 04/18/20 08:00 Temperature 97.9 F Pulse Rate 72 Respiratory 20 Rate Blood Pressure Blood Pressure 123/63 [Left] O2 Sat by Pulse 99 Oximetry - Lab 04/15/20 04:37 04/18/20 05:24 Most recent lab results Calcium 8.5 mg/dL (8.4-10.2) 04/18/20 05:24 Medications & Allergies - Medications Allergies/Adverse Reactions: Allergies heparin Allergy (Verified 02/04/20 16:09) Anaphylaxis Home Medications: Home Medications Medication Instructions Recorded Confirmed Last Taken Type Epoetin Leandro 10,000 Unit [Procrit] 10,000 unit SUB-Q EDIE vial 09/01/19 03/01/20 01/02/20 Rx Acetaminophen [Acetaminophen TAB] 325 mg PO Q4H PRN #30 tablet 12/22/19 02/29/20 01/09/20 11:49 Rx Calcium Acetate [Phoslo] 1,334 mg PO TIDWM #90 capsule 01/18/20 02/29/20 Unknown Rx Folic Acid [Folvite] 1 mg PO QDAY #30 tablet 01/25/20 02/29/20 Unknown Rx Pravastatin [Pravachol] 20 mg PO QHS #30 tablet 01/25/20 02/29/20 02/06/20 Rx Thiamine [Vitamin B-1] 100 mg PO QDAY #30 tablet 01/25/20 02/29/20 Unknown Rx [place]-3 Fatty Acids/Fish Oil [Fish 2,000 mg PO BID #60 capsule 03/02/20 Unknown Rx Oil] traZODone [Desyrel] 50 mg PO QHS #30 tablet 03/02/20 Unknown Rx Apixaban [Eliquis] 5 mg PO Q12HR #60 tablet 03/03/20 Unknown Rx Aspirin [Aspirin BABY CHEW TAB] 81 mg PO QDAY #30 tab.chew 03/03/20 Unknown Rx Epoetin Leandro 20,000 Unit [Procrit] 20,000 unit IV EDIE PRN vial 03/03/20 Unknown Rx Furosemide [Lasix TAB] 40 mg PO QDAY #30 tablet 03/03/20 Unknown Rx Isosorbide Dinitrate [Isordil] 10 mg PO BID #60 tablet 03/03/20 Unknown Rx Losartan [Cozaar] 50 mg PO QDAY #30 tablet 03/03/20 Unknown Rx NIFEdipine XL [Procardia Xl] 60 mg PO QDAY #30 tablet 03/03/20 Unknown Rx carvediloL [Coreg] 25 mg PO BID #60 tablet 03/03/20 Unknown Rx hydrALAZINE [Apresoline TAB] 50 mg PO Q8HR #90 tablet 03/03/20 Unknown Rx levETIRAcetam [Keppra TAB] 750 mg PO BID #60 tablet 03/03/20 Unknown Rx levETIRAcetam [Keppra TAB] 750 mg PO BID #60 tablet 03/03/20 Unknown Rx Acetaminophen [Acetaminophen TAB] 650 mg PO Q4H PRN tablet 03/17/20 Unknown Rx Active Medications: Generic Name Dose Route Start Last Admin Trade Name Freq PRN Reason Stop Dose Admin Acetaminophen 650 mg 04/13/20 13:22 Tylenol PO Q6H PRN Pain MILD(1-3)/Fever >100.5/TORIBIO Albuterol 2.5 mg 04/14/20 01:56 Proventil IH Q4HRT PRN Shortness Of Breath Apixaban 2.5 mg 04/15/20 22:00 04/17/20 22:00 Eliquis PO 2.5 mg Q12HR WILL Administration Protocol Calcium Acetate 1,334 mg 04/13/20 17:00 04/17/20 19:03 Phoslo PO 1,334 mg TIDWM WILL Administration Carvedilol 25 mg 04/13/20 14:00 04/17/20 22:00 Coreg PO 25 mg BID WILL Administration Epoetin Leandro 10,000 unit 04/14/20 12:30 04/15/20 11:35 Procrit IV 10,000 unit EDIE PRN Administration hemodialysis Folic Acid 1 mg 04/14/20 10:00 04/17/20 09:28 Folvite PO 1 mg QDAY WILL Administration Furosemide 40 mg 04/14/20 10:00 04/17/20 09:27 Lasix PO 40 mg QDAY WILL Administration Hydralazine HCl 50 mg 04/13/20 14:00 04/18/20 05:35 Apresoline PO 50 mg Q8HR WILL Administration Isosorbide Dinitrate 10 mg 04/13/20 14:00 04/17/20 22:00 Isordil PO 10 mg BID WILL Administration Levetiracetam 750 mg 04/13/20 14:00 04/17/20 22:01 Keppra PO 750 mg BID WILL Administration Losartan Potassium 50 mg 04/14/20 10:00 04/17/20 09:27 Cozaar PO 50 mg QDAY WILL Administration Nifedipine 60 mg 04/14/20 10:00 04/17/20 09:27 Procardia Xl PO 60 mg QDAY WILL Administration Pravastatin Sodium 20 mg 04/13/20 22:00 04/17/20 22:00 Pravachol PO 20 mg QHS WILL Administration Sodium Chloride 10 ml 04/13/20 22:00 04/17/20 22:01 Sodium Chloride Flush Syringe 10 Ml IV Not Given BID WILL Sodium Chloride 10 ml 04/13/20 13:22 Sodium Chloride Flush Syringe 10 Ml IV PRN PRN LINE FLUSH
[2020-04-18] MEDS: CALCIUM ACETATE 667 MG CAP PO SCH ×3 (09:38→17:22)
[2020-04-18] MEDS: FUROSEMIDE 40 MG TAB PO SCH (09:39)
[2020-04-18] MEDS: APIXABAN 2.5 MG TAB PO SCH (09:39)
[2020-04-18] MEDS: carvediloL 25 MG TAB PO SCH (09:39)
[2020-04-18] MEDS: levETIRAcetam 500 MG TAB PO SCH (09:39)
[2020-04-18] MEDS: FOLIC ACID 1 MG TAB PO SCH (09:39)
[2020-04-18] MEDS: LOSARTAN 50 MG TAB PO SCH (09:39)
[2020-04-18] MEDS: ISOSORBIDE DINITRATE 10 MG TAB PO SCH (09:39)
[2020-04-18] MEDS: NIFEdipine XL 60 MG TAB PO SCH (09:39)
--- NOTE | 2020-04-18 15:54 | Discharge Summary ---
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 Additional Physician Instructions: Needs outpatient hemodialysis arrangements Primary care physician: [employer] Hospitalization Condition: Stable Disposition: DC-01 TO HOME OR SELFCARE Time spent for discharge: 32 min Core Measure Documentation - Palliative Care Palliative Care/ Comfort Measures: Not Applicable - Core Measures Any of the following diagnoses?: none Exam - Constitutional Vitals: Temp Pulse Resp BP Pulse Ox 98.1 F 70 18 109/56 95 04/18/20 12:00 04/18/20 12:00 04/18/20 12:00 04/18/20 14:08 04/18/20 12:00 General appearance: Present: no acute distress, well-nourished - EENT Eyes: Present: PERRL, EOM intact - Neck Neck: Present: supple, normal ROM - Respiratory Respiratory effort: normal Respiratory: bilateral: diminished, negative: rales, rhonchi, wheezing - Cardiovascular Rhythm: regular Heart Sounds: Present: S1 & S2 - Extremities Extremities: no ischemia, No edema - Abdominal General gastrointestinal: Present: soft, non-tender, non-distended, normal bowel sounds - Integumentary Integumentary: Present: clear, warm - Musculoskeletal Musculoskeletal: strength equal bilaterally, generalized weakness - Psychiatric Psychiatric: cooperative - Neurologic Neurologic: moves all extremities Plan Activity: advance as tolerated Diet: renal Additional Instructions: Advised to follow nephrology/hemodialysis per schedule at [facility]. If you have worsening symptoms contact MD or go to [facility]. Smoking cessation counseling done, advised to quit Follow up with: PRIMARY CARE, [Primary Care Provider] - 3-5 Days Prescriptions: hydrALAZINE [Apresoline TAB] 50 mg PO Q8HR #90 tablet carvediloL [Coreg] 25 mg PO BID #60 tablet Losartan [Cozaar] 50 mg PO QDAY #30 tablet Apixaban [Eliquis] 5 mg PO Q12HR #60 tablet Folic Acid [Folvite] 1 mg PO QDAY #30 tablet Isosorbide Dinitrate [Isordil] 10 mg PO BID #60 tablet levETIRAcetam [Keppra TAB] 750 mg PO BID #60 tablet Furosemide [Lasix TAB] 40 mg PO QDAY #30 tablet Calcium Acetate [Phoslo] 1,334 mg PO TIDWM #90 capsule Pravastatin [Pravachol] 20 mg PO QHS #30 tablet NIFEdipine XL [Procardia Xl] 60 mg PO QDAY #30 tablet
[2020-04-18 17:12] VITALS: BP 119/77
== END 2020-04-18 18:56 | disposition home or self-care (01) | DRG 640 ==
LOC: EEVIPCON 10:47 → ED 10:47 → 4A 12:19 → CC1 12:54 → IMCU 04-14 20:47 → 4A 04-16 23:04
PROVIDERS: ADMIT Internal Medicine; ATTEND Internal Medicine
PROC: 5A1D70Z Performance of Urinary Filtration, Intermittent, Less than 6 Hours Per Day (ICD-10-PCS; principal; 2020-04-13)
PROC: 5A1D70Z Performance of Urinary Filtration, Intermittent, Less than 6 Hours Per Day (ICD-10-PCS; 2020-04-14)
PROC: 5A1D70Z Performance of Urinary Filtration, Intermittent, Less than 6 Hours Per Day (ICD-10-PCS; 2020-04-15)
PROC: 5A1D70Z Performance of Urinary Filtration, Intermittent, Less than 6 Hours Per Day (ICD-10-PCS; 2020-04-17)
DX: E87.5 Hyperkalemia (principal); N18.6 End stage renal disease; I16.1 Hypertensive emergency; J81.1 Chronic pulmonary edema; I13.2 Hypertensive heart and chronic kidney disease with heart failure and with stage 5 chronic kidney disease, or end stage renal disease; E87.2 Acidosis; E11.22 Type 2 diabetes mellitus with diabetic chronic kidney disease; M19.90 Unspecified osteoarthritis, unspecified site; J44.9 Chronic obstructive pulmonary disease, unspecified; D63.1 Anemia in chronic kidney disease; E87.70 Fluid overload, unspecified; R56.9 Unspecified convulsions; I50.9 Heart failure, unspecified; Z82.49 Family history of ischemic heart disease and other diseases of the circulatory system; Z99.2 Dependence on renal dialysis; Z79.4 Long term (current) use of insulin; Z91.15 Patient's noncompliance with renal dialysis; Z91.14 Patient's other noncompliance with medication regimen
CPT/HCPCS: 36415; 71045; 80048; 80074; 83880; 85025; 85027; 87641; 93005; 94640; 94760; G0378; A9270-GY; J0360; J0610; J0885; J1815

== ENCOUNTER 2020-06-21 20:36 | Inpatient (IN) | payer OTHER ==
[2020-06-21] MEDS ORDERED: levETIRAcetam 1000 MG/NS 0.75% 1,000 MG/100 ML BAG IV ONE (20:54)
--- NOTE | 2020-06-21 20:55 | Emergency Department Report ---
ED Neuro Deficit HPI - General Chief Complaint: Neuro Symptoms/Deficit Stated Complaint: HYPERTENSION Time Seen by Provider: 06/21/20 20:49 Source: patient, EMS Mode of arrival: Stretcher Limitations: Altered Mental Status - History of Present Illness Initial Comments: Patient is a 59-year-old male that presents emergency room with confusion, altered mental status. Patient was found down behind a gas station. Patient is not sure what happened. Patient states he is having leg pain. Patient also complains of headache. Patient is currently alert and oriented x2. Patient answering some questions appropriately. Patient denies chest pain or shortness of breath. Patient's not sure if he had a seizure. Patient states he has not had dialysis in 3 weeks. Patient states he is recently use cocaine. Patient states he is not sure if he drank alcohol. Patient brought in by EMS. Report received from EMS. Patient's blood pressure found to be elevated. -: Sudden Presenting Symptoms: Present: Sudden, Severe Headache, Altered Mental Status - Related Data Home Medications: Previous Rx's Medication Instructions Recorded Last Taken Type Apixaban [Eliquis] 5 mg PO Q12HR #60 tablet 04/18/20 Unknown Rx Calcium Acetate [Phoslo] 1,334 mg PO TIDWM #90 capsule 04/18/20 Unknown Rx Folic Acid [Folvite] 1 mg PO QDAY #30 tablet 04/18/20 Unknown Rx Furosemide [Lasix TAB] 40 mg PO QDAY #30 tablet 04/18/20 Unknown Rx Isosorbide Dinitrate [Isordil] 10 mg PO BID #60 tablet 04/18/20 Unknown Rx Losartan [Cozaar] 50 mg PO QDAY #30 tablet 04/18/20 Unknown Rx NIFEdipine XL [Procardia Xl] 60 mg PO QDAY #30 tablet 04/18/20 Unknown Rx Pravastatin [Pravachol] 20 mg PO QHS #30 tablet 04/18/20 Unknown Rx carvediloL [Coreg] 25 mg PO BID #60 tablet 04/18/20 Unknown Rx hydrALAZINE [Apresoline TAB] 50 mg PO Q8HR #90 tablet 04/18/20 Unknown Rx levETIRAcetam [Keppra TAB] 750 mg PO BID #60 tablet 04/18/20 Unknown Rx Allergies/Adverse Reactions: Allergies Allergy/AdvReac Type Severity Reaction Status Date / Time heparin Allergy Anaphylaxis Verified 02/04/20 16:09 ED Review of Systems ROS: Stated complaint: HYPERTENSION Other details as noted in HPI Comment: Unobtainable due to pts medical conditions ED Past Medical Hx - Past Medical History Previous Medical History?: Yes Hx Hypertension: Yes Hx Heart Attack/AMI: (CHF, EF 25-30%) Hx Congestive Heart Failure: Yes Hx Diabetes: Yes Hx Renal Disease: Yes (On Dialysis) Hx Arthritis: Yes (knees) Hx Seizures: Yes (non-compliant with meds) Hx Asthma: No Hx COPD: Yes Additional medical history: non compliant with HD - Surgical History Past Surgical History?: Yes Additional Surgical History: rt chest permacath - Family History Family history: no significant - Social History Smoking Status: Current Some Day Smoker Substance Use Type: Alcohol - Medications Home Medications: Home Medications Medication Instructions Recorded Confirmed Last Taken Type Apixaban [Eliquis] 5 mg PO Q12HR #60 tablet 04/18/20 Unknown Rx Calcium Acetate [Phoslo] 1,334 mg PO TIDWM #90 capsule 04/18/20 Unknown Rx Folic Acid [Folvite] 1 mg PO QDAY #30 tablet 04/18/20 Unknown Rx Furosemide [Lasix TAB] 40 mg PO QDAY #30 tablet 04/18/20 Unknown Rx Isosorbide Dinitrate [Isordil] 10 mg PO BID #60 tablet 04/18/20 Unknown Rx Losartan [Cozaar] 50 mg PO QDAY #30 tablet 04/18/20 Unknown Rx NIFEdipine XL [Procardia Xl] 60 mg PO QDAY #30 tablet 04/18/20 Unknown Rx Pravastatin [Pravachol] 20 mg PO QHS #30 tablet 04/18/20 Unknown Rx carvediloL [Coreg] 25 mg PO BID #60 tablet 04/18/20 Unknown Rx hydrALAZINE [Apresoline TAB] 50 mg PO Q8HR #90 tablet 04/18/20 Unknown Rx levETIRAcetam [Keppra TAB] 750 mg PO BID #60 tablet 04/18/20 Unknown Rx ED Neuro Physical Exam - General Limitations: Altered Mental Status General appearance: alert, in no apparent distress Suspected Stroke: Yes - Head Head exam: Present: atraumatic, normocephalic - Eye Eye exam: Present: normal appearance, PERRL Pupils: Present: normal accommodation - ENT ENT exam: Present: mucous membranes moist - Neck Neck exam: Present: normal inspection - Respiratory Respiratory exam: Present: normal lung sounds bilaterally. Absent: respiratory distress, wheezes, rales - Cardiovascular Cardiovascular Exam: Present: regular rate, normal rhythm. Absent: systolic murmur, diastolic murmur, rubs, gallop - GI/Abdominal GI/Abdominal exam: Present: soft, normal bowel sounds. Absent: distended, tenderness, guarding - Rectal Rectal exam: Present: deferred - Extremities Exam Extremities exam: Present: normal inspection - Back Exam Back exam: Present: normal inspection - Neurological Exam Neurological exam: Present: alert, altered - NIHSS Assessment Interval: Baseline 1a. Level of Consciousness: alert/keenly responsive 1b. LOC Questions: answers 1 question correctly 1c. LOC Commands: performs tasks correctly 2. Best Gaze: normal 3. Visual: no visual loss 4. Facial Palsy: normal symmetrical movement 5b. Motor Arm Right: no drift 5a. Motor Arm Left: no drift 6a. Motor Leg Left: some gravity effort 6b. Motor Leg Right: some gravity effort 7. Limb Ataxia: absent 8. Sensory: normal 9. Best Language: no aphasia 10. Dysarthria: normal 11. Extinction/Inattention: no abnormality Total Score: 5 Stroke Severity: Moderate Stroke - Skin Skin exam: Present: warm, dry, intact, normal color. Absent: rash ED Course Vital Signs 06/21/20 06/21/20 06/21/20 20:45 20:59 21:00 Temperature 98.9 F Pulse Rate 82 82 79 Respiratory 20 27 H 13 Rate Blood Pressure 187/111 Blood Pressure 187/111 [left arm] O2 Sat by Pulse 99 Oximetry 06/21/20 06/21/20 06/21/20 21:15 21:30 22:12 Temperature Pulse Rate 79 75 84 Respiratory 22 18 Rate Blood Pressure 194/106 195/104 197/110 Blood Pressure [left arm] O2 Sat by Pulse 100 Oximetry - Reevaluation(s) Reevaluation #1: Initial evaluation done. Code stroke initiated. Neurology will be consulted and the patient will be taken directly to CT scan for a CT of the head. 06/21/20 20:49 Reevaluation #2: CT is negative. Patient's blood pressure is improving on its own. We will cont inue to monitor. 06/21/20 21:02 Reevaluation #3: Patient will be given 40 mg of hydralazine. Patient denies pain at this time. 06/21/20 21:33 - Consultations Consultation #1: I discussed the case with neurology. Neurology recommends admission, MRI, stroke work-up. 06/21/20 21:14 Consultation #2: I discussed case with nephrology. Nephrology states that they will see the patient in morning and dialyze the patient in the morning. 06/21/20 22:16 - Lab Data Result diagrams: 06/21/20 20:58 06/21/20 20:58 Lab Results 06/21/20 06/21/20 06/21/20 Range/Units 20:58 20:58 20:58 WBC 5.6 (4.5-11.0) K/mm3 RBC 2.67 L (3.65-5.03) M/mm3 Hgb 8.9 L (11.8-15.2) gm/dl Hct 26.8 L (35.5-45.6) % MCV 100 H (84-94) fl MCH 33 H (28-32) pg MCHC 33 (32-34) % RDW 16.9 H (13.2-15.2) % Plt Count 238 (140-440) K/mm3 Lymph % (Auto) 15.8 (13.4-35.0) % [place] % (Auto) 5.7 (0.0-7.3) % Eos % (Auto) 0.8 (0.0-4.3) % Baso % (Auto) 0.8 (0.0-1.8) % Lymph # (Auto) 0.9 L (1.2-5.4) K/mm3 [place] # (Auto) 0.3 (0.0-0.8) K/mm3 Eos # (Auto) 0.0 (0.0-0.4) K/mm3 Baso # (Auto) 0.0 (0.0-0.1) K/mm3 Seg Neutrophils % 76.9 H (40.0-70.0) % Seg Neutrophils # 4.3 (1.8-7.7) K/mm3 PT 14.6 (12.2-14.9) Sec. INR 1.12 (0.87-1.13) APTT 26.2 (24.2-36.6) Sec. Thrombin Time (15.1-19.6) Sec. Sodium 136 L (137-145) mmol/L Potassium 4.7 (3.6-5.0) mmol/L Chloride 96.6 L (98-107) mmol/L Carbon Dioxide 13 L (22-30) mmol/L Anion Gap 31 mmol/L BUN 103 H (9-20) mg/dL Creatinine 18.0 H (0.8-1.3) mg/dL Estimated GFR 3 ml/min BUN/Creatinine Ratio 6 % Glucose 83 (75-100) mg/dL POC Glucose (70-105) Calcium 8.9 (8.4-10.2) mg/dL Phosphorus (2.5-4.5) mg/dL Magnesium (1.7-2.3) mg/dL Ammonia (25-60) umol/L Troponin T 0.052 H (0.00-0.029) ng/mL Triglycerides 75 (2-149) mg/dL Cholesterol 117 (50-199) mg/dL LDL Cholesterol Direct 56 (50-130) mg/dL HDL Cholesterol 52 (40-59) mg/dL Cholesterol/HDL Ratio 2.25 % 06/21/20 06/21/20 06/21/20 Range/Units 20:58 21:08 21:08 WBC (4.5-11.0) K/mm3 RBC (3.65-5.03) M/mm3 Hgb (11.8-15.2) gm/dl Hct (35.5-45.6) % MCV (84-94) fl MCH (28-32) pg MCHC (32-34) % RDW (13.2-15.2) % Plt Count (140-440) K/mm3 Lymph % (Auto) (13.4-35.0) % [place] % (Auto) (0.0-7.3) % Eos % (Auto) (0.0-4.3) % Baso % (Auto) (0.0-1.8) % Lymph # (Auto) (1.2-5.4) K/mm3 [place] # (Auto) (0.0-0.8) K/mm3 Eos # (Auto) (0.0-0.4) K/mm3 Baso # (Auto) (0.0-0.1) K/mm3 Seg Neutrophils % (40.0-70.0) % Seg Neutrophils # (1.8-7.7) K/mm3 PT (12.2-14.9) Sec. INR (0.87-1.13) APTT (24.2-36.6) Sec. Thrombin Time 16.2 (15.1-19.6) Sec. Sodium (137-145) mmol/L Potassium (3.6-5.0) mmol/L Chloride (98-107) mmol/L Carbon Dioxide (22-30) mmol/L Anion Gap mmol/L BUN (9-20) mg/dL Creatinine (0.8-1.3) mg/dL Estimated GFR ml/min BUN/Creatinine Ratio % Glucose (75-100) mg/dL POC Glucose (70-105) Calcium (8.4-10.2) mg/dL Phosphorus 8.30 H (2.5-4.5) mg/dL Magnesium 2.10 (1.7-2.3) mg/dL Ammonia 38.0 (25-60) umol/L Troponin T (0.00-0.029) ng/mL Triglycerides (2-149) mg/dL Cholesterol (50-199) mg/dL LDL Cholesterol Direct (50-130) mg/dL HDL Cholesterol (40-59) mg/dL Cholesterol/HDL Ratio % 09//20 Range/Units 21:20 WBC (4.5-11.0) K/mm3 RBC (3.65-5.03) M/mm3 Hgb (11.8-15.2) gm/dl Hct (35.5-45.6) % MCV (84-94) fl MCH (28-32) pg MCHC (32-34) % RDW (13.2-15.2) % Plt Count (140-440) K/mm3 Lymph % (Auto) (13.4-35.0) % [place] % (Auto) (0.0-7.3) % Eos % (Auto) (0.0-4.3) % Baso % (Auto) (0.0-1.8) % Lymph # (Auto) (1.2-5.4) K/mm3 [place] # (Auto) (0.0-0.8) K/mm3 Eos # (Auto) (0.0-0.4) K/mm3 Baso # (Auto) (0.0-0.1) K/mm3 Seg Neutrophils % (40.0-70.0) % Seg Neutrophils # (1.8-7.7) K/mm3 PT (12.2-14.9) Sec. INR (0.87-1.13) APTT (24.2-36.6) Sec. Thrombin Time (15.1-19.6) Sec. Sodium (137-145) mmol/L Potassium (3.6-5.0) mmol/L Chloride (98-107) mmol/L Carbon Dioxide (22-30) mmol/L Anion Gap mmol/L BUN (9-20) mg/dL Creatinine (0.8-1.3) mg/dL Estimated GFR ml/min BUN/Creatinine Ratio % Glucose (75-100) mg/dL POC Glucose 84 (70-105) Calcium (8.4-10.2) mg/dL Phosphorus (2.5-4.5) mg/dL Magnesium (1.7-2.3) mg/dL Ammonia (25-60) umol/L Troponin T (0.00-0.029) ng/mL Triglycerides (2-149) mg/dL Cholesterol (50-199) mg/dL LDL Cholesterol Direct (50-130) mg/dL HDL Cholesterol (40-59) mg/dL Cholesterol/HDL Ratio % - EKG Data -: EKG Interpreted by Me EKG shows normal: sinus rhythm, axis, intervals, QRS complexes, ST-T waves Rate: normal Interpretation: LVH - Radiology Data Radiology results: report reviewed, image reviewed interpreted by me: Chest x-ray: No pneumonia, no pneumothorax, no foreign body, no osseous findings, no acute findings CT BRAIN: 06/21/2020 INDICATION / CLINICAL INFORMATION: neuro deficits <6hrs or sx present upon awakening. No specific information provided. COMPARISON: 12/18/2019 FINDINGS: BRAIN/INTRACRANIAL STRUCTURES: Unenhanced CT images of the brain were obtained and compared to the prior exam from 12/18/2019. Again seen are patchy areas of cortical and subcortical encephalomalacia in the left middle cerebral artery distribution. Ventricles and sulci are somewhat prominent in size for a patient of this age, consistent with diffuse cerebral atrophy. Chronic white matter hypoattenuation is again noted throughout the cerebral hemispheric white matter. There is no evidence of acute large vessel territory ischemic injury, hemorrhage, or mass. There are no abnormal extra-axial fluid collections. EXTRACRANIAL STRUCTURES: Unremarkable. IMPRESSION: No acute abnormality. Chronic changes. - Medical Decision Making Patient is a 59-year-old male that presents emergency room secondary to a unresponsive episode and altered mental status. Patient brought in by EMS. Report received from EMS. Patient was altered upon initial evaluation. Patient was also found to have hypertensive urgency. Patient stated he was noncompliant with his dialysis for 2 weeks and had recent cocaine use. A code stroke was initiated upon initial evaluation. Neurology saw the patient. Neurology recommends admission to rule out a stroke versus seizure versus hypertensive encephalopathy. Patient given Keppra in the ER. Patient will require inpatient dialysis. Patient had labs done which were consistent with end-stage renal disease, metabolic acidosis, anemia. Patient's troponin was elevated most likely secondary to end-stage renal disease. - Differential Diagnosis Altered mental status, unresponsive, seizure, htn encephalopathy, cva Critical Care Time: Yes Critical care time in (mins) excluding proc time.: 35 Critical care attestation.: If time is entered above; I have spent that time in minutes in the direct care of this critically ill patient, excluding procedure time. Critical Care Time: 35 minutes ED Disposition Clinical Impression: Encephalopathy acute, Hypertensive emergency, Metabolic acidosis, Missed dialysis, ESRD (end stage renal disease), Uncontrolled hypertension, Elevated troponin I level, Seizure Altered mental state Qualifiers: Altered mental status type: unspecified Qualified Code(s): R41.82 - Altered mental status, unspecified Anemia Qualifiers: Anemia type: unspecified type Qualified Code(s): D64.9 - Anemia, unspecified Disposition: DC-09 OP ADMIT IP TO THIS HOSP Is pt being admited?: Yes Does the pt Need Aspirin: No Condition: Critical Referrals: PRIMARY CARE, [Primary Care Provider] - 3-5 Days
[2020-06-21] MEDS ORDERED: LORazepam 2 MG/ML VIAL IV PRN ×3 (20:58)
--- NOTE | 2020-06-21 21:09 | Emergency Department Report ---
ED Neuro Deficit HPI - General Chief Complaint: Neuro Symptoms/Deficit Stated Complaint: HYPERTENSION Time Seen by Provider: 06/21/20 20:49 Source: patient, RN/MD, EMS Mode of arrival: Stretcher Limitations: Altered Mental Status - History of Present Illness Initial Comments: [facility] TeleStroke Metrics: LKW: Unknown Door Time: 2035 [facility] Contacted: 2038 [facility] at Bedside: 2045 NIHSS: 2049 Decision on Alteplase: Not to give as his last known well time is unknown. Interventional Candidate: Not a candidate as his symptoms are not consistent with large vessel proximal occlusion. Chief Complaint: Altered mental status HPI: Asked to see this patient in emergent telemedicine consultation utilizing interactive audio and video technologies. Consultation was performed with assistance of ancillary / medical staff at bedside. Verbal consent to perform the examination with telemedicine was obtained. Patient agreed to proceed with the consultation for acute stroke protocol. 59-year-old right-handed -[place] male who comes to the emergency room by EMS for uncontrolled hypertension and altered mental status. Patient is a poor historian and does not remember what happened today. According to ER team, the patient was found down on the ground at a gas station by bystanders. He was very confused and not responsive. EMS was called. Blood pressure was elevated at 230/140. Initially when the patient came to the ER, he was still confused. As time passed, he became more oriented and with it. He does have a history of seizures and is apparently on Keppra 750 mg twice a day. He states his last hemodialysis session was 3 weeks ago. He states he has been homeless for a while. He also still smokes and recently did cocaine. Patient states he is also on a blood thinner, but does not remember the name. It appeared he had been on Eliquis 2.5 mg twice a day in the past for an unknown diagnosis. Patient states he is never had a stroke before. Patient states he might of had a seizure today but is not sure. PMH: End-stage renal disease, medical noncompliance, hypertension, chronic systolic congestive heart failure, depression, and seizure disorder on Keppra SOC: Positive for tobacco abuse, alcohol use, and cocaine abuse. He currently is homeless. FMH: Negative for stroke. Significant hypertension. ROS: 13 point review of systems were reviewed with the patient, and are all negative with the exception of the aforementioned in the history of present illness. VS: Blood pressure was noted to be 230/140 Exam: Patient is in no apparent distress. Patient appears as stated age. No obvious acute respiratory or cardiac distress. Patient is well groomed and well-nourished. 1a- LOC: Keenly responsive - 0 1b- LOC questions: Answers both questions correctly - 0 1c- LOC commands- Performs both tasks correctly- 0 2- Gaze: Normal; no gaze paresis or gaze deviation - 0 3- Visual Zheng: normal, no Visual field deficit - 0 4- Facial movements: No facial palsy - 0 5- Upper limb motor No arm drift - 0 6- Lower limb motor Bilateral leg drifts - 4 7- Limb Coordination: absent ataxia - 0 8- Sensory: no sensory loss - 0 9- Language - No aphasia - 0 10- Speech - No dysarthria - 0 11- Neglect / Extinction - none found - 0 NIHSS score: 4 Diagnostic Data: CT head showed no acute intracranial hemorrhage, mass, or large territory stroke. There appears to be areas of age indeterminate left hemisphere strokes involving the left frontoparietal lobe and left occipital lobe. Blood glucose 84 Medical Data Reviewed: 1.Data?reviewed include clinical labs, radiology,?and medical tests; 2.Tests?results discussed w/performing or interpreting physician; 3.Obtaining/reviewing old medical records; 4.Obtaining?case history from another source; 5.Independent?review of image, tracing, or specimen. Medical Decision Making: - Extensive number of diagnosis or management options are considered below. - Extensive amount of complex data reviewed. - High risk of complication and/or morbidity or mortality are associated with differential diagnostic considerations below. - There may be?uncertain?outcome and increased probability of prolonged functional impairment or high probability of severe prolonged functional impairment associated with some of these differential diagnosis. Differential Diagnosis for Stroke: 1.?Cardioembolic?stroke 2. Small vessel disease/lacune 3. Thromboembolic, [id number] mechanism 4.?Hypercoagulable?state-related infarct 5. Transient ischemic attack 6. Thrombotic mechanism, large artery disease Assessment: 1. Altered mental status. Differential diagnosis includes hypertensive encephalopathy versus seizure versus stroke. 2. End-stage renal disease on hemodialysis 3. Medical noncompliance 4. Polysubstance abuse (cocaine, tobacco, alcohol) 5. Seizure disorder on Keppra 6. Hypertension 7. Possible left hemisphere strokes Recommendations: Patient can be admitted to the hospital for further work-up of his symptoms Metabolic and infectious work-up per primary team Consult inpatient neurology team to assist with evaluation and management Check MRI brain without contrast to rule out any acute intracranial process Check MRA of the head and neck to better evaluate his intracranial and extracranial blood vessels Check echocardiogram to gauge his cardiac function Maintain the patient on telemetry to look for paroxysmal atrial fibrillation Consult PT, OT, and ST Check hemoglobin A1c, lipid panel, and urine drug screen Can maintain the patient on full dose aspirin for now Medication verification and reconciliation per primary team Continue the patient on his Keppra Okay to maintain systolic blood pressure to be less than 180 and diastolic blood pressure less than 100 to cover the possibility of hypertensive encephalopathy Continue supportive care Plan of care was discussed with the patient Thank you for allowing [facility] to participate in the care of your patient. Please call me, Dr. Fuller, with any questions at [phone]. Case discussed with the ER staff and Dr. Rosario. Critical Care notation: I was called to see this critical patient emergently. I personally evaluated this critical patient for acute stroke evaluation, and determining their eligibility for IV Alteplase and interventional therapies. I have spent approximately 7 minutes with the patient, including time at bedside, time discussing the case with other physicians, reviewing plan of care, and time independently reviewing the records and scans. - Related Data Home Medications: Previous Rx's Medication Instructions Recorded Last Taken Type Apixaban [Eliquis] 5 mg PO Q12HR #60 tablet 04/18/20 Unknown Rx Calcium Acetate [Phoslo] 1,334 mg PO TIDWM #90 capsule 04/18/20 Unknown Rx Folic Acid [Folvite] 1 mg PO QDAY #30 tablet 04/18/20 Unknown Rx Furosemide [Lasix TAB] 40 mg PO QDAY #30 tablet 04/18/20 Unknown Rx Isosorbide Dinitrate [Isordil] 10 mg PO BID #60 tablet 04/18/20 Unknown Rx Losartan [Cozaar] 50 mg PO QDAY #30 tablet 04/18/20 Unknown Rx NIFEdipine XL [Procardia Xl] 60 mg PO QDAY #30 tablet 04/18/20 Unknown Rx Pravastatin [Pravachol] 20 mg PO QHS #30 tablet 04/18/20 Unknown Rx carvediloL [Coreg] 25 mg PO BID #60 tablet 04/18/20 Unknown Rx hydrALAZINE [Apresoline TAB] 50 mg PO Q8HR #90 tablet 04/18/20 Unknown Rx levETIRAcetam [Keppra TAB] 750 mg PO BID #60 tablet 04/18/20 Unknown Rx Allergies/Adverse Reactions: Allergies Allergy/AdvReac Type Severity Reaction Status Date / Time heparin Allergy Anaphylaxis Verified 02/04/20 16:09 ED Review of Systems ROS: Stated complaint: HYPERTENSION Other details as noted in HPI ED Past Medical Hx - Past Medical History Previous Medical History?: Yes Hx Hypertension: Yes Hx Heart Attack/AMI: (CHF, EF 25-30%) Hx Congestive Heart Failure: Yes Hx Diabetes: Yes Hx Renal Disease: Yes (On Dialysis) Hx Arthritis: Yes (knees) Hx Seizures: Yes (non-compliant with meds) Hx Asthma: No Hx COPD: Yes Additional medical history: non compliant with HD - Surgical History Past Surgical History?: Yes Additional Surgical History: rt chest permacath - Social History Smoking Status: Current Some Day Smoker Substance Use Type: Alcohol - Medications Home Medications: Home Medications Medication Instructions Recorded Confirmed Last Taken Type Apixaban [Eliquis] 5 mg PO Q12HR #60 tablet 04/18/20 Unknown Rx Calcium Acetate [Phoslo] 1,334 mg PO TIDWM #90 capsule 04/18/20 Unknown Rx Folic Acid [Folvite] 1 mg PO QDAY #30 tablet 04/18/20 Unknown Rx Furosemide [Lasix TAB] 40 mg PO QDAY #30 tablet 04/18/20 Unknown Rx Isosorbide Dinitrate [Isordil] 10 mg PO BID #60 tablet 04/18/20 Unknown Rx Losartan [Cozaar] 50 mg PO QDAY #30 tablet 04/18/20 Unknown Rx NIFEdipine XL [Procardia Xl] 60 mg PO QDAY #30 tablet 04/18/20 Unknown Rx Pravastatin [Pravachol] 20 mg PO QHS #30 tablet 04/18/20 Unknown Rx carvediloL [Coreg] 25 mg PO BID #60 tablet 04/18/20 Unknown Rx hydrALAZINE [Apresoline TAB] 50 mg PO Q8HR #90 tablet 04/18/20 Unknown Rx levETIRAcetam [Keppra TAB] 750 mg PO BID #60 tablet 04/18/20 Unknown Rx ED Neuro Physical Exam - General Limitations: Altered Mental Status General appearance: alert, in no apparent distress Suspected Stroke: No ED Course Vital Signs 06/21/20 20:45 Temperature 98.9 F Pulse Rate 82 Respiratory 20 Rate Blood Pressure 187/111 [left arm] O2 Sat by Pulse 99 Oximetry - Lab Data Lab Results 06/21/20 Range/Units 21:20 POC Glucose 84 (70-105) Critical care attestation.: If time is entered above; I have spent that time in minutes in the direct care of this critically ill patient, excluding procedure time. ED Disposition Clinical Impression: Altered mental state Disposition: DC-09 OP ADMIT IP TO THIS HOSP Is pt being admited?: Yes Does the pt Need Aspirin: Yes Condition: Stable
--- NOTE | 2020-06-21 21:20 | Cat Scan Report ---
CT BRAIN: 06/21/2020 INDICATION / CLINICAL INFORMATION: neuro deficits <6hrs or sx present upon awakening. No specific information provided. COMPARISON: 12/18/2019 FINDINGS: BRAIN/INTRACRANIAL STRUCTURES: Unenhanced CT images of the brain were obtained and compared to the pr ior exam from 12/18/2019. Again seen are patchy areas of cortical and subcortical encephalomalacia in the left middle cerebral artery distribution. Ventricles and sulci are somewhat prominent in size for a patient of this age, consistent with diffus e cerebral atrophy. Chronic white matter hypoattenuation is again noted throughout the cerebral hemispheric white matter. There is no evidence of acute large vessel territory ischemic injury, hemorrhage, or mass. There are no abnormal extra-axial fluid collections. EXTRACRANIAL STRUCTURES: Unremarkable. IMPRESSION: No acute abnormality. Chronic changes. Notification: in the emergency department at [address] scans at this location are performed using dose reduction to ALARA by means of automated expos ure control. Signer Name: Reuben Benitez MD Signed: 06/21/2020 9:15 PM Workstation Name: [id number]
[2020-06-21 21:33] LABS: Basophils % (Auto) 0.8 % (0.0-1.8); Eosinophils % (Auto) 0.8 % (0.0-4.3); Hematocrit 26.8 % (35.5-45.6); Hemoglobin 8.9 gm/dl (11.8-15.2); Lymphocytes # (Auto) 0.9 K/mm3 (1.2-5.4); Lymphocytes % (Auto) 15.8 % (13.4-35.0); Mean Corpuscular HGB Conc 33 % (32-34); Mean Corpuscular Volume 100 fl (84-94); Monocytes # (Auto) 0.3 K/mm3 (0.0-0.8); Monocytes % (Auto) 5.7 % (0.0-7.3); Platelet Count 238 K/mm3 (140-440); Red Blood Count 2.67 M/mm3 (3.65-5.03); Red Cell Distribution Width 16.9 % (13.2-15.2)
[2020-06-21] MEDS ORDERED: hydrALAZINE 25 MG TAB PO ONE ×2 (21:40→22:18)
[2020-06-21 21:41] LABS: INR 1.12 (0.87-1.13)
[2020-06-21 21:42] LABS: Partial Thromboplastin Time 26.2 Sec. (24.2-36.6)
[2020-06-21 21:47] LABS: Calcium 8.9 mg/dL (8.4-10.2)
[2020-06-21 22:06] LABS: Chol/HDL Ratio 2.25 %
[2020-06-21] MEDS ORDERED: SODIUM CHLORIDE 0.9% 100 ML IV PRN (22:24)
--- NOTE | 2020-06-21 22:51 | XRay Report ---
CHEST 1 VIEW INDICATION / CLINICAL INFORMATION: ams. COMPARISON: 04/13/2020 FINDINGS: SUPPORT DEVICES: Right-sided central venous catheter with tip terminating at the cavoatrial junction. HEART / MEDIASTINUM: Stable. LUNGS / PLEURA: No significant pleural or parenchymal abnormality. No pneumothorax. ADDITIONAL FINDINGS: No significant additional findings. IMPRESSION: 1. No acute findings. Signer Name: Derek Shau MD Signed: 06/21/2020 10:47 PM Workstation Name: [id number]
[2020-06-21] MEDS ORDERED: ACETAMINOPHEN 325 MG TAB PO PRN (23:25)
[2020-06-21 23:27] LABS: Bilirubin,Urine NEG (Negative); Blood,Urine SM (Negative); Color,Urine Straw (Yellow); Urobilinogen,Urine < 2.0 mg/dL (<2.0)
[2020-06-22 00:02] LABS: Amphetamine Screen,Urine PRESUMPTIVE NEGATIVE; Benzodiazepines Screen,Urine PRESUMPTIVE NEGATIVE; Cannabinoid Screen,Urine PRESUMPTIVE NEGATIVE; Cocaine Screen,Urine PRESUMPTIVE POSITIVE; Methadone Screen,Urine PRESUMPTIVE NEGATIVE; Opiate Screen,Urine PRESUMPTIVE NEGATIVE
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
--- NOTE | 2020-06-22 13:08 | Consultation ---
History of Present Illness - Reason for Consult Consult date: 06/22/20 end stage renal disease Requesting physician: NAE SANCHEZ - History of Present Illness This is a 59 yo M with past medical history of Hypertension, HFrEF, ESRD on HD with h/o medical non-compliance, who presents to ER, [facility], with altered mental status, after he was found down with decreased responsiveness behind a gas station. in ER patient was found to be hypertensive with BP > 230/140, CXR showed no acute findings, labs showed significantly elevated BUN/Cr at 103/18mg/dl and renal consult is requested for management of ESRD/HD. Pt is confused, poor historian to give any detailed history. Past History Past Medical History: arthritis, COPD, ESRD, heart failure, hypertension, renal failure, seizures Past Surgical History: Other (RIGHT PERMACATH) Social history: no significant social history Family history: no significant family history Medications and Allergies Allergies Allergy/AdvReac Type Severity Reaction Status Date / Time heparin Allergy Anaphylaxis Verified 02/04/20 16:09 Home Medications Medication Instructions Recorded Confirmed Last Taken Type Apixaban [Eliquis] 5 mg PO Q12HR #60 tablet 04/18/20 06/21/20 Unknown Rx Calcium Acetate [Phoslo] 1,334 mg PO TIDWM #90 capsule 04/18/20 06/21/20 Unknown Rx Folic Acid [Folvite] 1 mg PO QDAY #30 tablet 04/18/20 06/21/20 Unknown Rx Furosemide [Lasix TAB] 40 mg PO QDAY #30 tablet 04/18/20 06/21/20 Unknown Rx Isosorbide Dinitrate [Isordil] 10 mg PO BID #60 tablet 04/18/20 06/21/20 Unknown Rx Losartan [Cozaar] 50 mg PO QDAY #30 tablet 04/18/20 06/21/20 Unknown Rx NIFEdipine XL [Procardia Xl] 60 mg PO QDAY #30 tablet 04/18/20 06/21/20 Unknown Rx Pravastatin [Pravachol] 20 mg PO QHS #30 tablet 04/18/20 06/21/20 Unknown Rx carvediloL [Coreg] 25 mg PO BID #60 tablet 04/18/20 06/21/20 Unknown Rx hydrALAZINE [Apresoline TAB] 50 mg PO Q8HR #90 tablet 04/18/20 06/21/20 Unknown Rx levETIRAcetam [Keppra TAB] 750 mg PO BID #60 tablet 04/18/20 06/21/20 Unknown Rx Active Meds: Active Medications Acetaminophen (Tylenol) 650 mg PO Q4H PRN PRN Reason: Fever >101 Sodium Chloride (Nacl 0.9%) 100 mls @ 999 mls/hr IV EDIE PRN PRN Reason: Hypotension Labetalol HCl (Labetalol) 10 mg IV Q8H PRN PRN Reason: Blood Pressure Last Admin: 06/21/20 23:50 Dose: 10 mg Documented by: Lorazepam (Ativan) 2 mg IV Q1HR PRN PRN Reason: CIWA-Ar 8-15 Lorazepam (Ativan) 4 mg IV Q1HR PRN PRN Reason: CIWA-Ar 16-25 Lorazepam (Ativan) 4 mg IV Q15MIN PRN PRN Reason: CIWA-Ar >25 Review of Systems ROS unobtainable: due to mental status Exam - Vital Signs Vital signs: Vital Signs Temp Pulse Resp BP Pulse Ox 98.9 F 82 20 187/111 99 06/21/20 20:45 06/21/20 20:45 06/21/20 20:45 06/21/20 20:45 06/21/20 20:45 - General Appearance General appearance: well-developed, appears stated age, chronically ill EENT: ATNC, PERRL, mucous membranes moist Neck: Present: neck supple Respiratory: Clear to Ascultation Heart: regular, S1S2 Gastrointestinal: Present: normoactive bowel sounds Integumentary: no rash Neurologic: confused, disoriented Results - Lab Results 06/21/20 20:58 06/21/20 20:58 Most recent lab results Calcium 8.9 mg/dL (8.4-10.2) 06/21/20 20:58 Phosphorus 8.30 mg/dL (2.5-4.5) H 06/21/20 21:08 Magnesium 2.10 mg/dL (1.7-2.3) 06/21/20 21:08 Assessment and Plan - Patient Problems (1) Altered mental state Current Visit: Yes Status: Acute Qualifiers: Altered mental status type: unspecified Qualified Code(s): R41.82 - Altered mental status, unspecified Plan to address problem: possibly secondary to uremic encephalopathy, unclear when his last HD was performed. will arrange daily HD until tomorrow for correction of uremic encephalopathy. (2) End stage renal disease Current Visit: Yes Status: Acute Plan to address problem: Daily HD for today and tomorrow for correction of uremic encephalopathy, then transition to MWF schedule (3) Hypertensive emergency Current Visit: Yes Status: Acute Plan to address problem: BP improved with IV labetalol, po hydralazine. HD with UF target of 2-3L as tolerated for further volume/BP control. (4) Metabolic acidosis Current Visit: Yes Status: Acute Plan to address problem: to be corrected with HD
[2020-06-22 13:09] LABS: Hepatitis B Surface Antigen Non-Reactive (Negative); Hepatitis C Virus Antibody Non-Reactive (NonReactive)
--- NOTE | 2020-06-22 17:35 | Vascular Lab Report ---
Bilateral Carotid Doppler Ultrasound INDICATION : CVA TECHNIQUE: Grayscale and color Doppler imaging performed through the neck. COMPARISON: None FINDINGS: Right: There is no significant atherosclerotic disease. Peak systolic velocity in the CCA is 47 cm/ s. Peak systolic velocity in the proximal ICA is 55 cm/s with end-diastolic velocity of 19 cm/s. ICA to CCA ratio is less than 2. There is antegrade flow in the ECA and the vertebral artery. Left: There is no significant atherosclerotic disease. Peak systolic velocity in the CCA is 65 cm/s. Peak systolic velocity in the proximal ICA is 60 cm/s with end-diastolic velocity of 24 cm/s. ICA to CCA ratio is less than 2. There is antegrade flow in the ECA and the vertebral artery. IMPRESSION: No hemodynamically significant stenosis by NASCET criteria. Signer Name: Mark Gonzales MD Signed: 06/22/2020 5:30 PM Workstation Name: [id number]
--- NOTE | 2020-06-22 19:14 | Event Note ---
Date: 06/22/20
[2020-06-22] MEDS ORDERED: SODIUM CHLORIDE 0.9% 100 ML IV PRN (21:16)
[2020-06-23 06:17] LABS: Basophils % (Auto) 0.5 % (0.0-1.8); Eosinophils % (Auto) 1.1 % (0.0-4.3); Hematocrit 25.7 % (35.5-45.6); Hemoglobin 8.6 gm/dl (11.8-15.2); Lymphocytes # (Auto) 1.8 K/mm3 (1.2-5.4); Lymphocytes % (Auto) 39.7 % (13.4-35.0); Mean Corpuscular HGB Conc 34 % (32-34); Mean Corpuscular Volume 99 fl (84-94); Monocytes # (Auto) 0.4 K/mm3 (0.0-0.8); Monocytes % (Auto) 9.6 % (0.0-7.3); Platelet Count 192 K/mm3 (140-440); Red Blood Count 2.61 M/mm3 (3.65-5.03); Red Cell Distribution Width 16.4 % (13.2-15.2)
[2020-06-23 06:35] LABS: Albumin 3.4 g/dL (3.9-5); Blood Urea Nitrogen 53 mg/dL (9-20); Calcium 8.9 mg/dL (8.4-10.2); Hemolysis Index 3
[2020-06-23 06:41] LABS: Alanine Aminotransferase < 5 units/L (7-56); BUN/Creatinine Ratio 5
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
[2020-06-23] MEDS ORDERED: EPOETIN ALFA 10,000 UNIT/1 ML INJ SUB-Q SCH (09:00)
--- NOTE | 2020-06-23 11:22 | Progress Note ---
Assessment and Plan - Patient Problems (1) Altered mental state Current Visit: Yes Status: Acute Qualifiers: Altered mental status type: unspecified Qualified Code(s): R41.82 - Altered mental status, unspecified Plan to address problem: possibly secondary to uremic encephalopathy, improved with HD. another HD arranged today, for further solute clearance (2) End stage renal disease Current Visit: Yes Status: Acute Plan to address problem: Another HD today for correction of uremic encephalopathy, then transition to MWF schedule (3) Hypertensive emergency Current Visit: Yes Status: Acute Plan to address problem: BP improved, monitor on current meds (4) Metabolic acidosis Current Visit: Yes Status: Acute Plan to address problem: to be corrected with HD Subjective Date of service: 06/23/20 Principal diagnosis: ESRD Interval history: Pt awake, alert, in no acute distress Objective - Vital Signs Vital signs: Vital Signs - 12hr 06/22/20 06/23/20 06/23/20 23:41 00:25 02:00 Temperature 99.1 F Pulse Rate 76 81 Respiratory 18 Rate Blood Pressure 184/112 184/112 O2 Sat by Pulse Oximetry 06/23/20 06/23/20 03:31 08:30 Temperature 98.2 F 98.2 F Pulse Rate 78 75 Respiratory 18 18 Rate Blood Pressure 161/95 171/101 O2 Sat by Pulse 96 98 Oximetry - General Appearance General appearance: well-developed, well-nourished, appears stated age EENT: ATNC, PERRL, mucous membranes moist Neck: no JVD Respiratory: Present: Clear to Ascultation Cardiology: regular, S1S2 Gastrointestinal: normoactive bowel sounds Integumentary: no rash, other (no edema ) Neurologic: no focal deficit, alert and oriented x3, strength 5/5, CN 3-12 intact Psychiatric: mood/affect appropriate, cooperative - Lab 06/23/20 05:31 06/23/20 05:31 Most recent lab results Calcium 8.9 mg/dL (8.4-10.2) 06/23/20 05:31 Phosphorus 8.30 mg/dL (2.5-4.5) H 06/21/20 21:08 Magnesium 2.10 mg/dL (1.7-2.3) 06/21/20 21:08 Medications & Allergies - Medications Allergies/Adverse Reactions: Allergies heparin Allergy (Verified 02/04/20 16:09) Anaphylaxis Home Medications: Home Medications Medication Instructions Recorded Confirmed Last Taken Type Apixaban [Eliquis] 5 mg PO Q12HR #60 tablet 04/18/20 06/21/20 Unknown Rx Calcium Acetate [Phoslo] 1,334 mg PO TIDWM #90 capsule 04/18/20 06/21/20 Unknown Rx Folic Acid [Folvite] 1 mg PO QDAY #30 tablet 04/18/20 06/21/20 Unknown Rx Furosemide [Lasix TAB] 40 mg PO QDAY #30 tablet 04/18/20 06/21/20 Unknown Rx Isosorbide Dinitrate [Isordil] 10 mg PO BID #60 tablet 04/18/20 06/21/20 Unknown Rx Losartan [Cozaar] 50 mg PO QDAY #30 tablet 04/18/20 06/21/20 Unknown Rx NIFEdipine XL [Procardia Xl] 60 mg PO QDAY #30 tablet 04/18/20 06/21/20 Unknown Rx Pravastatin [Pravachol] 20 mg PO QHS #30 tablet 04/18/20 06/21/20 Unknown Rx carvediloL [Coreg] 25 mg PO BID #60 tablet 04/18/20 06/21/20 Unknown Rx hydrALAZINE [Apresoline TAB] 50 mg PO Q8HR #90 tablet 04/18/20 06/21/20 Unknown Rx levETIRAcetam [Keppra TAB] 750 mg PO BID #60 tablet 04/18/20 06/21/20 Unknown Rx Active Medications: Generic Name Dose Route Start Last Admin Trade Name Evaristoq PRN Reason Stop Dose Admin Acetaminophen 650 mg 06/21/20 23:25 06/22/20 21:10 Tylenol PO 650 mg Q4H PRN Administration Fever >101 Epoetin Leandro 10,000 unit 06/23/20 09:00 Procrit SUB-Q EDIE WILL Sodium Chloride 100 mls @ 999 mls/hr 06/22/20 21:16 Nacl 0.9% IV EDIE PRN Hypotension Labetalol HCl 10 mg 06/21/20 23:18 06/23/20 00:25 Labetalol IV 10 mg Q8H PRN Administration Blood Pressure Lorazepam 2 mg 06/21/20 20:58 Ativan IV Q1HR PRN CIWA-Ar 8-15 Lorazepam 4 mg 06/21/20 20:58 Ativan IV Q1HR PRN CIWA-Ar 16-25 Lorazepam 4 mg 06/21/20 20:58 Ativan IV Q15MIN PRN CIWA-Ar >25
--- NOTE | 2020-06-23 19:33 | Progress Note ---
Assessment and Plan - Patient Problems (1) End stage renal disease Current Visit: Yes Status: Chronic Plan to address problem: Continue hemodialysis Patient may need dialysis [id number] on consecutive days (2) Acute metabolic encephalopathy Current Visit: Yes Status: Acute Plan to address problem: Secondary to uremia Repeat dialysis Patient to be counseled about compliance Nephrology consult requested (3) Hypertensive emergency Current Visit: Yes Status: Acute Plan to address problem: IV labetalol as needed Continue home antihypertensives and adjust medications (4) Missed dialysis Current Visit: Yes Status: Acute Plan to address problem: Patient consult (5) HTN (hypertension) Current Visit: No Status: Chronic Qualifiers: Hypertension type: essential hypertension Qualified Code(s): I10 - Essential (primary) hypertension Plan to address problem: Continue antihypertensives (6) HLD (hyperlipidemia) Current Visit: No Status: Chronic Qualifiers: Hyperlipidemia type: mixed hyperlipidemia Qualified Code(s): E78.2 - Mixed hyperlipidemia Plan to address problem: Continue statins (7) DVT prophylaxis Current Visit: No Status: Acute Plan to address problem: On heparin and GI prophylaxis Subjective Date of service: 06/23/20 Principal diagnosis: Acute metabolic encephalopathy, uremia Interval history: 59 year old male presenting with altered mental status after he was found down with decrease responsiveness behind a gas station .There is no history of chest pain , fever, shortness of breath , cough , nausea or vomiting. Patient admitted to [facility] Patient was admitted for severe lethargy and decreased responsiveness Patient was noncompliant with his dialysis Patient was uremic at the time of admission Objective - Constitutional Vitals: Vital Signs - 12hr 06/23/20 06/23/20 06/23/20 08:30 09:15 09:30 Temperature 98.2 F Pulse Rate 75 91 H 81 Respiratory 18 Rate Blood Pressure 171/101 173/94 159/95 O2 Sat by Pulse 98 Oximetry 06/23/20 06/23/20 06/23/20 09:45 10:00 10:15 Temperature Pulse Rate 81 82 77 Respiratory Rate Blood Pressure 175/103 169/99 152/100 O2 Sat by Pulse Oximetry 06/23/20 06/23/20 06/23/20 10:30 10:45 10:55 Temperature Pulse Rate 78 67 83 Respiratory Rate Blood Pressure 176/111 138/72 O2 Sat by Pulse Oximetry 06/23/20 06/23/20 06/23/20 11:00 11:15 11:30 Temperature Pulse Rate 70 73 71 Respiratory Rate Blood Pressure 140/63 149/65 141/73 O2 Sat by Pulse Oximetry 06/23/20 06/23/20 06/23/20 11:45 12:00 12:15 Temperature Pulse Rate 81 72 75 Respiratory Rate Blood Pressure 137/62 159/94 132/85 O2 Sat by Pulse Oximetry 06/23/20 06/23/20 06/23/20 12:30 12:45 13:17 Temperature 98.8 F Pulse Rate 75 71 Respiratory 20 18 Rate Blood Pressure 139/85 142/90 O2 Sat by Pulse 94 Oximetry 06/23/20 06/23/20 06/23/20 15:55 16:41 16:57 Temperature 98.2 F 98.8 F Pulse Rate 76 76 76 Respiratory 20 18 Rate Blood Pressure 176/96 176/96 150/106 O2 Sat by Pulse 95 Oximetry General appearance: Present: no acute distress, well-nourished - EENT Eyes: PERRL, EOM intact ENT: hearing intact, clear oral mucosa Ears: bilateral: normal - Neck Neck: supple, normal ROM - Respiratory Respiratory effort: normal Respiratory: bilateral: CTA - Breasts Breasts: normal - Cardiovascular Heart rate: 78 Rhythm: regular Heart Sounds: Present: S1 & S2. Absent: gallop, rub Extremities: pulses intact, No edema, normal color, Full ROM - Gastrointestinal General gastrointestinal: Present: soft, non-tender, non-distended, normal bowel sounds - Genitourinary Male genitourinary: normal - Integumentary Integumentary: clear, warm, dry - Musculoskeletal Musculoskeletal: strength equal bilaterally, generalized weakness - Neurologic Neurologic: moves all extremities - Psychiatric Psychiatric: intact judgment & insight, memory intact, cooperative, other (More alert and oriented) - Allied health notes Allied health notes reviewed: nursing, case management - Labs CBC & Chem 7: 06/24/20 04:17 06/24/20 06:08 Labs: Abnormal lab results 06/23/20 06/23/20 Range/Units 05:31 05:31 WBC 4.4 L (4.5-11.0) K/mm3 RBC 2.61 L (3.65-5.03) M/mm3 Hgb 8.6 L (11.8-15.2) gm/dl Hct 25.7 L (35.5-45.6) % MCV 99 H (84-94) fl MCH 33 H (28-32) pg RDW 16.4 H (13.2-15.2) % Lymph % (Auto) 39.7 H (13.4-35.0) % Merrick % (Auto) 9.6 H (0.0-7.3) % BUN 53 H (9-20) mg/dL Creatinine 11.0 H (0.8-1.3) mg/dL ALT < 5 L (7-56) units/L Albumin 3.4 L (3.9-5) g/dL HEART Score - HEART Score Age: 45-65 Risk factors: 1-2 risk factors Troponin: Troponin T 0.052 ng/mL (0.00-0.029) H 06/21/20 20:58 - Critical Actions Critical Actions: 0-3 pts:0.9-1.7%risk of adverse cardiac event.Candidate for discharge
[2020-06-24 05:30] LABS: Basophils # (Auto) 0.1 K/mm3 (0.0-0.1); Basophils % (Auto) 1.2 % (0.0-1.8); Eosinophils % (Auto) 0.8 % (0.0-4.3); Hematocrit 26.9 % (35.5-45.6); Hemoglobin 9.2 gm/dl (11.8-15.2); Lymphocytes # (Auto) 1.8 K/mm3 (1.2-5.4); Lymphocytes % (Auto) 36.3 % (13.4-35.0); Mean Corpuscular HGB Conc 34 % (32-34); Mean Corpuscular Volume 99 fl (84-94); Monocytes # (Auto) 0.4 K/mm3 (0.0-0.8); Monocytes % (Auto) 8.3 % (0.0-7.3); Platelet Count 199 K/mm3 (140-440); Red Blood Count 2.72 M/mm3 (3.65-5.03); Red Cell Distribution Width 16.7 % (13.2-15.2)
[2020-06-24 05:43] LABS: Albumin 3.3 g/dL (3.9-5); Calcium 8.7 mg/dL (8.4-10.2)
--- NOTE | 2020-06-24 13:37 | Progress Note ---
Assessment and Plan - Patient Problems (1) End stage renal disease Current Visit: Yes Status: Chronic Plan to address problem: Maintain on MWF HD schedule. No acute HD needs today. (2) Altered mental state Current Visit: Yes Status: Acute Qualifiers: Altered mental status type: unspecified Qualified Code(s): R41.82 - Altered mental status, unspecified Plan to address problem: In the setting of uremic encephalopathy due to non compliance with dialysis treatment. Improved after HD, now placed on MWF inpatient HD schedule. (3) Hypertensive emergency Current Visit: Yes Status: Acute Plan to address problem: Blood pressure control improved after HD. Will closely monitor on current regimen. (4) Anemia Current Visit: Yes Status: Acute Qualifiers: Anemia type: unspecified type Qualified Code(s): D64.9 - Anemia, unspecified Plan to address problem: JASBIR with HD treatment Subjective Date of service: 06/24/20 Principal diagnosis: ESRD Interval history: No acute issues. Mentation improved with HD. Objective - Vital Signs Vital signs: Vital Signs - 12hr 06/24/20 06/24/20 06/24/20 02:00 03:33 07:39 Temperature 98.6 F 98.2 F Pulse Rate 90 82 74 Pulse Rate [ Apical] Pulse Rate [ Left Radial] Pulse Rate [ Right Radial] Respiratory 18 20 Rate Blood Pressure 139/92 157/108 Blood Pressure [left arm] O2 Sat by Pulse 97 96 Oximetry 06/24/20 06/24/20 06/24/20 09:35 10:00 12:33 Temperature Pulse Rate 78 79 Pulse Rate [ 78 Apical] Pulse Rate [ 78 Left Radial] Pulse Rate [ 78 Right Radial] Respiratory 17 Rate Blood Pressure 150/104 Blood Pressure [left arm] O2 Sat by Pulse 98 98 Oximetry 06/24/20 06/24/20 12:35 12:40 Temperature 98.0 F Pulse Rate 78 Pulse Rate [ Apical] Pulse Rate [ Left Radial] Pulse Rate [ Right Radial] Respiratory 16 Rate Blood Pressure Blood Pressure 152/93 [left arm] O2 Sat by Pulse 98 Oximetry - General Appearance General appearance: appears stated age, chronically ill EENT: ATNC Neck: no JVD Respiratory: Present: Clear to Ascultation Cardiology: regular Gastrointestinal: normal Integumentary: warm and dry Musculoskeletal: deferred - Lab 06/24/20 04:17 06/24/20 06:08 Most recent lab results Calcium 8.7 mg/dL (8.4-10.2) 06/24/20 04:17 Phosphorus 8.30 mg/dL (2.5-4.5) H 06/21/20 21:08 Magnesium 2.10 mg/dL (1.7-2.3) 06/21/20 21:08 - Allied health notes Allied health notes reviewed: nursing Medications & Allergies - Medications Allergies/Adverse Reactions: Allergies heparin Allergy (Verified 02/04/20 16:09) Anaphylaxis Home Medications: Home Medications Medication Instructions Recorded Confirmed Last Taken Type Apixaban [Eliquis] 5 mg PO Q12HR #60 tablet 04/18/20 06/21/20 Unknown Rx Calcium Acetate [Phoslo] 1,334 mg PO TIDWM #90 capsule 04/18/20 06/21/20 Unknown Rx Folic Acid [Folvite] 1 mg PO QDAY #30 tablet 04/18/20 06/21/20 Unknown Rx Furosemide [Lasix TAB] 40 mg PO QDAY #30 tablet 04/18/20 06/21/20 Unknown Rx Isosorbide Dinitrate [Isordil] 10 mg PO BID #60 tablet 04/18/20 06/21/20 Unknown Rx Losartan [Cozaar] 50 mg PO QDAY #30 tablet 04/18/20 06/21/20 Unknown Rx NIFEdipine XL [Procardia Xl] 60 mg PO QDAY #30 tablet 04/18/20 06/21/20 Unknown Rx Pravastatin [Pravachol] 20 mg PO QHS #30 tablet 04/18/20 06/21/20 Unknown Rx carvediloL [Coreg] 25 mg PO BID #60 tablet 04/18/20 06/21/20 Unknown Rx hydrALAZINE [Apresoline TAB] 50 mg PO Q8HR #90 tablet 04/18/20 06/21/20 Unknown Rx levETIRAcetam [Keppra TAB] 750 mg PO BID #60 tablet 04/18/20 06/21/20 Unknown Rx Active Medications: Generic Name Dose Route Start Last Admin Trade Name Freq PRN Reason Stop Dose Admin Acetaminophen 650 mg 06/21/20 23:25 06/22/20 21:10 Tylenol PO 650 mg Q4H PRN Administration Fever >101 Epoetin Leandro 10,000 unit 06/23/20 09:00 06/23/20 12:00 Procrit SUB-Q 10,000 unit EDIE WILL Administration Sodium Chloride 100 mls @ 999 mls/hr 06/22/20 21:16 Nacl 0.9% IV EDIE PRN Hypotension Labetalol HCl 10 mg 06/21/20 23:18 06/23/20 16:41 Labetalol IV 10 mg Q8H PRN Administration Blood Pressure Lorazepam 2 mg 06/21/20 20:58 Ativan IV Q1HR PRN CIWA-Ar 8-15 Lorazepam 4 mg 06/21/20 20:58 Ativan IV Q1HR PRN CIWA-Ar 16-25 Lorazepam 4 mg 06/21/20 20:58 Ativan IV Q15MIN PRN CIWA-Ar >25
[2020-06-24 16:35] VITALS: BP 149/101
--- NOTE | 2020-06-24 18:30 | Discharge Summary ---
Providers - Providers Date of Admission: 06/22/20 16:00 Date of discharge: 06/24/20 Attending physician: TIMOTHY MCCARTNEY 06/21/20 22:17 Consult to Physician [CONS] Routine Comment: Dr. Lange spoke with Dr. Denson @ [id number] Consulting Provider: ALANA DENSON Physician Instructions: Reason For Exam: esrd 06/22/20 06:00 Physical Therapy Evaluation and Treat [CONS] Routine Comment: Reason For Exam: WEAKNESS OF THE LOWER LIMBS Speech Therapy Evaluation and Treat [CONS] Routine Reason For Exam: CVA Primary care physician: BRICKLAYER TENDER Hospitalization Condition: Critical Hospital course: Subjective Date of service: 06/24/20 Principal diagnosis: AMS 1 day Interval history: 59 year old male presenting with altered mental status after he was found down with decrease responsiveness behind a gas station .There is no history of chest pain , fever, shortness of breath , cough , nausea or vomiting. Patient admitted to abusing cocain Patient was admitted for severe lethargy and decreased responsiveness Patient was noncompliant with his dialysis Patient was uremic at the time of admission Patient is symptomatically better and more alert and oriented and able to walk - Patient Problems (1) Acute metabolic encephalopathy Current Visit: Yes Status: Acute Plan to address problem: Improved after repeat hemodialysis (2) Hypertensive emergency Current Visit: Yes Status: Acute Plan to address problem: Improved after antihypertensives started (3) End stage renal disease Current Visit: Yes Status: Chronic Plan to address problem: Initiated in the hemodialysis clinic (4) Hypertension Current Visit: Yes Status: Chronic Qualifiers: Hypertension type: essential hypertension Qualified Code(s): I10 - Essential (primary) hypertension Plan to address problem: Continue antihypertensives and adjust medications as necessary (5) Coronary artery disease Current Visit: Yes Status: Acute Plan to address problem: Continue aspirin and Eliquis (6) Missed dialysis Current Visit: Yes Status: Acute (7) CHF exacerbation Current Visit: No Status: Acute Qualifiers: Plan to address problem: Patient to be counseled (8) HLD (hyperlipidemia) Current Visit: No Status: Chronic Qualifiers: Hyperlipidemia type: mixed hyperlipidemia Qualified Code(s): E78.2 - Mixed hyperlipidemia Plan to address problem: Continue statins (9) DVT prophylaxis Current Visit: No Status: Acute Plan to address problem: On heparin and GI prophylaxis Disposition: DC-01 TO HOME OR SELFCARE - Discharge Diagnoses (1) End stage renal disease Status: Chronic (2) Acute metabolic encephalopathy Status: Acute (3) Hypertensive emergency Status: Acute (4) Missed dialysis Status: Acute (5) HTN (hypertension) Status: Chronic Qualifiers: Hypertension type: essential hypertension Qualified Code(s): I10 - Essential (primary) hypertension (6) HLD (hyperlipidemia) Status: Chronic Qualifiers: Hyperlipidemia type: mixed hyperlipidemia Qualified Code(s): E78.2 - Mixed hyperlipidemia (7) DVT prophylaxis Status: Acute Core Measure Documentation - Palliative Care Palliative Care/ Comfort Measures: Not Applicable - Core Measures Any of the following diagnoses?: none Exam - Constitutional Vitals: Temp Pulse Resp BP Pulse Ox 97.3 F L 77 20 149/101 96 06/24/20 16:00 06/24/20 16:00 06/24/20 16:00 06/24/20 16:00 06/24/20 16:00 General appearance: Present: no acute distress, well-nourished - EENT Eyes: Present: PERRL ENT: hearing intact, clear oral mucosa - Neck Neck: Present: supple, normal ROM - Respiratory Respiratory effort: normal Respiratory: bilateral: CTA - Cardiovascular Heart Sounds: Present: S1 & S2. Absent: rub, click - Extremities Extremities: pulses symmetrical, No edema Peripheral Pulses: within normal limits - Abdominal General gastrointestinal: Present: soft, non-tender, non-distended, normal bowel sounds Male genitourinary: Present: normal - Integumentary Integumentary: Present: clear, warm, dry - Musculoskeletal Musculoskeletal: gait normal, strength equal bilaterally - Psychiatric Psychiatric: appropriate mood/affect, intact judgment & insight - Neurologic Neurologic: CNII-XII intact, moves all extremities Plan Activity: no restrictions Diet: renal Follow up with: OMAR WEAVER MD [Primary Care Provider] - 3-5 Days ALANA DENSON MD [Staff Physician] - 7 Days
[2020-06-24] MEDS ORDERED: levETIRAcetam 500 MG TAB PO SCH (22:00)
[2020-06-24] MEDS ORDERED: APIXABAN 5 MG TAB PO SCH (22:00)
[2020-06-24] MEDS ORDERED: ISOSORBIDE DINITRATE 10 MG TAB PO SCH (22:00)
[2020-06-24] MEDS ORDERED: carvediloL 25 MG TAB PO SCH (22:00)
[2020-06-24] MEDS ORDERED: hydrALAZINE 25 MG TAB PO SCH (22:00)
[2020-06-24] MEDS ORDERED: PRAVASTATIN 20 MG TAB PO SCH (22:00)
[2020-06-25] MEDS ORDERED: CALCIUM ACETATE 667 MG CAP PO SCH (08:00)
[2020-06-25] MEDS ORDERED: NIFEdipine XL 60 MG TAB PO SCH (10:00)
[2020-06-25] MEDS ORDERED: LOSARTAN 50 MG TAB PO SCH (10:00)
[2020-06-25] MEDS ORDERED: FOLIC ACID 1 MG TAB PO SCH (10:00)
[2020-06-25] MEDS ORDERED: FUROSEMIDE 40 MG TAB PO SCH (10:00)
== END 2020-06-24 19:32 | disposition home or self-care (01) | DRG 291 ==
LOC: ED 20:36 → 4A 22:33 → OBSVTOIN 06-22 16:00
PROVIDERS: ADMIT Internal Medicine; ATTEND Internal Medicine
PROC: 5A1D70Z Performance of Urinary Filtration, Intermittent, Less than 6 Hours Per Day (ICD-10-PCS; principal; 2020-06-22)
PROC: 5A1D70Z Performance of Urinary Filtration, Intermittent, Less than 6 Hours Per Day (ICD-10-PCS; 2020-06-23)
DX: I13.2 Hypertensive heart and chronic kidney disease with heart failure and with stage 5 chronic kidney disease, or end stage renal disease (principal); N18.6 End stage renal disease; G93.40 Encephalopathy, unspecified; I16.1 Hypertensive emergency; E87.2 Acidosis; E11.22 Type 2 diabetes mellitus with diabetic chronic kidney disease; F17.210 Nicotine dependence, cigarettes, uncomplicated; M19.90 Unspecified osteoarthritis, unspecified site; D64.9 Anemia, unspecified; I25.10 Atherosclerotic heart disease of native coronary artery without angina pectoris; E78.2 Mixed hyperlipidemia; Z99.2 Dependence on renal dialysis
CPT/HCPCS: 36415; 70450; 71045; 80048; 80053; 80061; 80074; 80307; 81001; 82140; 82962; 83735; 84100; 84132; 84484; 85025; 85610; 85670; 85730; 93005; 93306; 93880; 96374; G0378; J0885; J1953